=== PATIENT | female | born 1995 | race Caucasian/White ===

== ENCOUNTER 2017-07-24 15:23 | Outpatient (RCR) | payer MEDICAID, SELFPAY ==
--- NOTE | 2017-07-24 17:52 | HP.PTEVAL ---
Patient's Visit Information PARVIN CERNA is a 21 year old F referred to Physical Therapy by Beata Cruz with a diagnosis of GUSTATIONAL DM, PRE-ECLAMPSIA. SCIATICA.. Date of Evaluation: 07/24/17 Physical Therapist: Negrita Che - Visit Plan Frequency: 2-3x /Week Duration: 4-6 Weeks Plan: PROCEED SLOWLY 32 WEEKS WITH PRE-CLAMSIA AND GUSTATIONAL DIABETES. AQUATIC THERAPY FOR GENTLE UNLOADING OF SPINE AND GENTLE MVMT WITH NEUTRAL SPINE. GENTLE DLS TOLERATED. GENTLE DAKOTAH LE STRENGTHEING. FOCUS ON PAIN REDUCTION. VERY GENTLE REP EXTENSION THROUGH A SMALL ROM IS OK TOLERATED. MONITOR PERIPHERALIZATION OF SX'S. - Subjective Subjective: THIS PATIENT PRESENTS TO PT WITH C/O LBP THAT IS GOING DOWN HER LEG. SHE REPORTS SHE IS *32 WEEKS * AND HER LBP STARTED A FEW WEEKS AGO BUT GOT REALLY BAD ON SATURDAY. SHE REPORTS SHE JUST SAW DR. CRUZ SATURDAY AND THEN CALLED SATURDAY WITH C/O INCREASED BACK PAIN AND THAT IS WHEN PT WAS ORDERED. Work/Leisure: LAST WORKED JAN 2017 DOING [employer]. Disability: NO. Present symptoms: LOW BACK, LEFT THIGH. DENIES DAKOTAH LE NUMBNESS OR TINGLING. Present since: COUPLE WEEKS AGO. Pain Scale: WORST 9/10, LEAST 4/10. Currently: 9/10. Commenced as a result of: NO APPARENT REASON. WOKE UP WITH THE PAIN. GOT WORSE SATURDAY AFTER GIVING DOG A BATH SATURDAY AND SHE COULD BARELY STAND UP AFTER THAT - IT'S BEEN HORRIBLE SINCE THEN. Symptoms at onset: LOW BACK. Worse: WALKING, LYING DOWN, SITTING: PRETTY MUCH ANYTHING I DO. Better: NOTHING. Disturbed sleep: YES. Previous history/Previous treatment: CONSTANT LBP FOR YEARS BUT NOTHING THIS BAD. NO PRIOR TREATMENTS. Coughing/sneezing/straining: ? Gait: NO AD'S BUT VERY PAINFUL TO WALK. Difficulty initiating urinatin: NO. Accidents: NO. Unexplained weight loss: N/A. Imaging: NO. PMH: GALLSTONES. LOW IRON. OTHER: PRE-ECLAMPSIA - BEING MONITORED 2 TIMES A WEEK. STATES THAT IF SHE GETS EXTREME WARE, STARTS SEEING SPOTS, GETS DIZZY OR SEIZURES TO SEEK HELP IMMEDIATELY. GUSTATIONAL DIABETES - CHECKING BLOOD SUGAR 4 TIMES A DAY. STATES HER BLOOD SUGARS HAVE BEEN RUNNING NORMAL. - Objective Sitting Posture: POOR. Standing Posture: POOR. Lordosis: INCREASED. Lateral shift: NO. Relevant shift: N/A. Active Correction of posture: WORSE. Other Observations: PATIENT IS PLEASANT AND COOPERATIVE TO WORK WITH BUT APPEARS TO BE IN A LOT OF PAIN. ALL OF HER MOVENTS ARE VERY GUARDED AND SHE CAN NOT GET COMFORTABLE IN SITTING. SHE DOES WALK INDEP'LY INTO PT X APPROX 300 FEET WITHOUT ANY ASSISTIVE DEVICES BUT WITH DECREASED CADANCE, GRIMACING AND DECREASED TRUNK ROTATION. Motor deficit: DAKOTAH LE'S 5/5 WITH MMT EXCEPT RIGHT HIP 4-/5 AND LEFT HIP 4/5 (RIGHT HIP IS WEAKER AND PROVOKES MORE PAIN WITH TESTING THAN LEFT DESPITE C/O LEFT THIGH PAIN AND NOT RIGHT). Sensory deficit: DAKOTAH LE LIGHT TOUCH SENSATION INTACT. ROM deficit: DAKOTAH LE'S WFL. Reflexes: 2/2 DAKOTAH LE'S. Dural Signs: POSITIVE LLE. Lumbar mvmt loss: flex - MOD. ext - MOD. R SG - MIN. L SG - MIN. PATIENT WITH C/O PAIN WITH LUMBAR ROM TESTING ALL PLANES. Core strength: NT. Palpation: LUMBAR TENDERNESS AND INCREASED MUSCLE TONE OF PARASPINALS THROUGHOUT. - Goals Goal 1:: DECREASE C/O LB AND LEFT THIGH SX'S Goal Time Frame: 4-6 Weeks Goal 2:: IMPROVE SITTING, STANDING, WALKING, BENDING, LIFTING, LYING AND SLEEP FUNCTION Goal Time Frame: 4-6 Weeks Goal 3:: INSTRUCT IN PROPHYLAXIS Goal Time Frame: 4-6 Weeks - Rehabilitation Potential Rehabilitation Potential: Fair - Anticipated Interventions Patient/Client Instruction: Educate patient on: Condition, Plan of Care, Risk Factors, Benefits of Fitness Program For the Purpose of:: To improve self management Therapeutic Exercise to Include: Strength training, Body mechanics, Postural training, Flexibilty training, Gait and locomotor training, In an aquatic setting, Dynamic Lumbar Stabilization For the Purpose of:: To decrease pain, To decrease swelling/inflammation, To improve ability of physical actions for home/community/work/leisure, To improve gait and locomotor functions Thank you for the opportunity to evaluate your patient. For Medicare and Medicare HMO plans, please review the plan of care and approve it. It will need to be FAXED BACK to us at [phone] for Medicare purposes. Please let me know if there are questions or concerns regarding this plan of care. Physician Signature: Date:
--- NOTE | 2017-08-28 10:53 | HP.PT.NRP ---
HP - Discharge Summary (1) - Patient Information PARVIN CERNA was seen in my office for initial evaluation on 07/24/17. The following Plan of Care was established for this patient: Initial Frequency: 2-3x /Week Initial Duration: 4-6 Weeks - Anticipated Interventions Patient/Client Instruction: Educate patient on: Condition, Plan of Care, Risk Factors, Benefits of Fitness Program For the Purpose of:: To improve self management Therapeutic Exercise to Include: Strength training, Body mechanics, Postural training, Flexibilty training, Gait and locomotor training, In an aquatic setting, Dynamic Lumbar Stabilization For the Purpose of:: To decrease pain, To decrease swelling/inflammation, To improve ability of physical actions for home/community/work/leisure, To improve gait and locomotor functions This patient was last seen in our office 07/24/17. Pertinent comments regarding their Physical therapy will appear below: This patient has not returned to Physical Therapy and is appropriate to return to MD for further follow-up as needed. At this point I will be discontinuing this patient from physical therapy. I would be happy to see this patient again in the future if found appropriate by the physician. Thank you! Negrita Che
== END 2017-07-24 19:00 | disposition home or self-care (01) ==
LOC: PT 15:23
PROVIDERS: Family Provider Obstetrics & Gynecology; Visit Provider Obstetrics & Gynecology
DX: M54.30 Sciatica, unspecified side (principal); O24.419 Gestational diabetes mellitus in pregnancy, unspecified control; O14.90 Unspecified pre-eclampsia, unspecified trimester
CPT/HCPCS: 97162; 97530

== ENCOUNTER 2017-09-13 23:57 | Emergency (ER) | payer MEDICAID, SELFPAY ==
[2017-09-13 23:59] VITALS: BP 144/77; PULSE 94; RESP 18; TEMP 36.6; O2SAT 96; BMI 38.9
[2017-09-14 00:48] VITALS: BP 114/67; BP 118/83; BP 120/70; PULSE 102; PULSE 80; PULSE 92
[2017-09-14 00:48] LABS: Absolute Lymphocyte Count 2.09 X10^3/ul (0.83-4.51); Absolute Neutrophil Count 5.6 X10^3/uL (2.0-7.7); Basophil# 0.02 X10^3/uL; Basophil% 0.2 % (0-1); Differential Indicated SCAN CRITERIA MET; Eosinophil# 0.19 X10^3/uL; Eosinophils% 2.3 % (0-5); Hematocrit 31.4 % (37-47); Hemoglobin 9.1 g/dl (12.0-15.0); Lymphocyte # 2.09 X10^3/ul (4.0); Lymphocyte % 25.3 % (19-41); Mean Corpuscular Hgb 20.4 pg (27.0-32.0); Mean Corpuscular Volume 70.2 fL (81-99); Mean Platelet Vol. 9.7 fl (6.2-12.0); Monocyte# 0.37 X10^3/uL; Monocyte% 4.5 % (0-10); Neutrophil # 5.57 X10^3/uL (2.7-7.7); Neutrophil % 67.6 % (47-70); POSITIVE COUNT NO; POSITIVE DIFFERENTIAL NO; POSITIVE MORPHOLOGY YES; Platelet Count 325 K/mm3 (150-450); RBC Distribution Width CV 17.8 % (11.6-14.6); RBC Distribution Width SD 45.4 fl (35.1-43.9); Red Blood Count 4.47 M/mm3 (4.2-5.4); White Blood Count 8.3 K/mm3 (4.4-11.0)
[2017-09-14] MEDS: 0.9% Normal Saline 1,000 ML 1000 ML IV (00:51)
[2017-09-14 01:14] LABS: Differential Comment SCANNED
[2017-09-14 01:21] LABS: Pregnancy, Serum, hCG Quali. NEGATIVE Negative (0-9 Nonpreg)
--- NOTE | 2017-09-14 01:48 | ED.VISSUMM ---
- ER Visit Summary Date of Service: 09/14/17 Chief Complaint: [Vaginal bleeding] History of Present Illness: The patient is a 21 F presents the emergency department with vaginal bleeding that started about 6 weeks ago. Patient delivered a child via on August 06 and has not stopped bleeding since. Patient states that over the last 2-3 days she has had an increase in the amount of bleeding and she is passing some clots. Patient denies any abdominal pain. Patient denies any fever. Patient called her BLIND SLAT STAPLING MACHINE OPERATOR and the nurse instructed her to come to the ER to be evaluated. Patient denies feeling lightheaded or dizzy with standing. [Patient is .] Physical Examination: HEENT-PERRLA, EOMI. Cranial nerves II through XII grossly intact. TMs clear. Mucous membranes moist. No adenopathy. Cardiovascular-regular rate and rhythm without murmur or ectopy Lungs-clear to auscultation, chest wall stable without crepitus or subcu emphysema Abdomen-normoactive bowel sounds, soft, nontender, no rebound or rigidity, no peritoneal signs. exam-patient has blood and clot from the cervical loss noted. Minimal oozing noted. No cervical motion tenderness. Uterus is normal size and nontender. No masses palpated in the adnexa. Extremities-intact ?4, normal range of motion, normal pulses, atraumatic[] Test Results: [CBC with differential obtained showed a white blood cell count of 8.3, hemoglobin 9.1, hematocrit 31, platelets 325. HCG was negative. Orthostatics were negative. Patient's last hemoglobin on July 26 of this year was 8.0.] Emergency Department Course and Treatment: [I discussed case with Dr. Anglin who was covering for Dr. Cruz he recommended no further treatment at this time and wanted patient to follow-up with Dr. Cruz in the office.] Treatment Plan: [Follow-up with her BLIND SLAT STAPLING MACHINE OPERATOR within the next 2-3 days. Patient to return if persistent heavy bleeding, lightheaded, pale, or condition should worsen in any way.] Disposition: [Discharged to home in stable condition.] Impression: [Dysfunctional uterine bleeding] This note was generated with [employer] software. It may contain incorrect words, spelling, and punctuation that were not noted in review of the chart prior to signing ED Disposition - Plan for ED Patient: Chief Complaint: Vag Bleeding Referrals: Care Physician,No Primary [Primary Care Provider] -
--- NOTE | 2017-09-14 01:52 | ED.DCSUM_ITS ---
- ER Visit Summary Date of Service: 09/14/17 Chief Complaint: [Vaginal bleeding] History of Present Illness: The patient is a 21 F presents the emergency department with vaginal bleeding that started about 6 weeks ago. Patient delivered a child via on August 06 and has not stopped bleeding since. Patient states that over the last 2-3 days she has had an increase in the amount of bleeding and she is passing some clots. Patient denies any abdominal pain. Patient denies any fever. Patient called her EMERGENCY GENERATOR MECHANIC and the nurse instructed her to come to the ER to be evaluated. Patient denies feeling lightheaded or dizzy with standing. [Patient is .] Physical Examination: HEENT-PERRLA, EOMI. Cranial nerves II through XII grossly intact. TMs clear. Mucous membranes moist. No adenopathy. Cardiovascular-regular rate and rhythm without murmur or ectopy Lungs-clear to auscultation, chest wall stable without crepitus or subcu emphysema Abdomen-normoactive bowel sounds, soft, nontender, no rebound or rigidity, no peritoneal signs. exam-patient has blood and clot from the cervical loss noted. Minimal oozing noted. No cervical motion tenderness. Uterus is normal size and nontender. No masses palpated in the adnexa. Extremities-intact ?4, normal range of motion, normal pulses, atraumatic[] Test Results: [CBC with differential obtained showed a white blood cell count of 8.3, hemoglobin 9.1, hematocrit 31, platelets 325. HCG was negative. Orthostatics were negative. Patient's last hemoglobin on July 26 of this year was 8.0.] Emergency Department Course and Treatment: [I discussed case with Dr. Anglin who was covering for Dr. Cruz he recommended no further treatment at this time and wanted patient to follow-up with Dr. Cruz in the office.] Treatment Plan: [Follow-up with her EMERGENCY GENERATOR MECHANIC within the next 2-3 days. Patient to return if persistent heavy bleeding, lightheaded, pale, or condition should worsen in any way.] Disposition: [Discharged to home in stable condition.] Impression: [Dysfunctional uterine bleeding] This note was generated with [employer] software. It may contain incorrect words, spelling, and punctuation that were not noted in review of the chart prior to signing ED Disposition - Plan for ED Patient: Chief Complaint: Vag Bleeding Referrals: Care Physician,No Primary [Primary Care Provider] -
--- NOTE | 2017-09-14 01:52 | ED.DEP ---
ED Disposition - Plan for ED Patient: Chief Complaint: Vag Bleeding Instructions: ED Bleed Irregular Vaginal Referrals: Care Physician,No Primary [Primary Care Provider] - Beata Cruz MD [STAFF PHYSICIAN] - 3-5 Days
[2017-09-14 02:01] VITALS: BP 116/75; PULSE 89; RESP 17; O2SAT 98
--- NOTE | 2017-09-14 02:02 | ED.RN ---
PT GIVEN WRITTEN AND VERBAL DISCHARGE INSTRUCTIONS. PT VERBALIZES UNDERSTANDING AND DENIES ANY FURTHER QUESTIONS. PT AMBULATORY HOME WITH SIGNIFICANT OTHER. PT IV D/C AND COVERED WITH 2X2 GAUZE DRESSING.
== END 2017-09-14 02:04 | disposition home or self-care (01) ==
LOC: ED 09-14 00:51
PROVIDERS: Emergency Provider Emergency Medicine
DX: N93.8 Other specified abnormal uterine and vaginal bleeding (principal)
CPT/HCPCS: 84703; 85025; 86850; 86900; 96360; 99285; J7030; A4216

== ENCOUNTER 2017-09-24 11:47 | Day surgery (SDC) | payer MEDICAID, SELFPAY ==
[2017-09-24] VITALS (9 sets, daily range): BP systolic 106–137; BP diastolic 62–74; PULSE 64–91; RESP 16–20; TEMP 36.1–36.8; O2SAT 93–100; BMI 39.0
--- NOTE | 2017-09-24 11:57 | EKG12_ITS ---
Test Reason : PRE OP Blood Pressure : / mmHG Vent. Rate : 082 BPM Atrial Rate : 082 BPM P-R Int : 136 ms QRS Dur : 086 ms QT Int : 402 ms P-R-T Axes : 019 029 026 degrees QTc Int : 469 ms Normal sinus rhythm with sinus arrhythmia Normal ECG When compared with ECG of 04-OCT-2013 07:39, QT has lengthened Confirmed by LENCHO LEHMAN, NITO ([id number]), news assignment editor YOVANI MCBRIDE ([id number]) on 09/26/2017 4:03:11 PM Referred By: Jose Campbell Confirmed By:NITO MUSA MD
[2017-09-24 12:13] LABS: Internal QC Validated? YES +Cl - CLEAR BKGD; Pregnancy, Urine Negative Negative
--- NOTE | 2017-09-24 14:03 | PCM.OPRPT ---
Problem List (1) Cholelithiasis Status: Acute Qualifiers: Cholelithiasis location: gallbladder Cholecystitis presence: without cholecystitis Biliary obstruction: without biliary obstruction Qualified Code(s): K80.20 - Calculus of gallbladder without cholecystitis without obstruction (2) Right upper quadrant pain Status: Acute Report of Operation Date of Procedure: 09/24/17 Pre-Operative Diagnosis: k80.20 calculus of the gallbladder without cholecystitis without obstruction. r10.11 right upper quadrant abdominal pain Post-Operative Diagnosis: Same Surgery/Procedure Performed:: 79011 laparoscopic cholecystectomy Type of Anesthesia:: General Anesthesiologist: Thad Colon Description of Procedure: Patient was brought into the operating room. Placed in the supine position. Under excellent endotracheal intubation the abdomen was sterilely prepped and draped in the usual fashion. Local was injected infraumbilically. Incision was made and dissection was carried down to the fascia. The fascia was grasped with a Tahir. Varies needle was placed inside the abdomen. The abdomen was insufflated to 15 torr. A 10/12 trocar was placed without difficulty. Patient was placed in the head up and rotated to the left position. A subxiphoid #5 trocar was placed, inferior to this another #5 trocar was placed, and finally laterally a #5 trocar was placed. All these under direct visualization without injury to underlying structures. I grab the fundus of the gallbladder and retracted in cephalad direction. I dissected out the cystic duct the cystic artery and dissected all the way back to the base of the liver. Once I had dissected everything free and's identified both the common bile duct and the other structures I placed 2 hemoclips cystic duct and ligated in between. I placed 2 hemoclips proximally and distally on the artery and ligated in between. I deliver the gallbladder from the gallbladder bed with use of electrocautery. Placed a specimen specimen bag and delivered through the umbilical port without difficulty. In my dissection I did have a small spillage of bile but no spillage of stones. I reinflated the abdomen irrigated out all of the bile. I inspected the liver there was a small tear on the right side of the liver but it was not actively bleeding. I did not use electrocautery on it. The liver bed itself had excellent hemostasis. I removed all the trochars under direct visualization. Good hemostasis was noted. I closed the fascia the umbilical port with a figure 8 stitch of 0 Vicryl. Skin incisions were closed with subcuticular stitches of 4-0 Monocryl. Steri-Strips are applied sterile dressings were applied and the patient tolerated the procedure well. - Admit VTE Documentation VTE Present on Admission: No VTE Mechan Device Prophylaxis: SCD's VTE Pharm Prophylaxis ordered?: No Reason prophylaxis not ordered:: Treatment Not Indicated
--- NOTE | 2017-09-24 14:05 | GALL_PTH ---
PATIENT: PARVIN TORRES [place] [facility] [id number] AGE/SX: 21/F ROOM: RE09/24/[address]: Dr. Jose Campbell MD : [id number] BED: DIS: 09/24/2017 SPEC #: [id number] RECD: 09/24/17 15:24 STATUS: SHARDA TY #: [id number] FUNMILAYO: 09/24/17 14:[address]: Jose Campbell DEPT: SURGICAL PATHOLOGY RECD BY: Alisson Shannon ENTERED: 09/25/17 09:06 SP TYPE: AVI HILL DR: No Primary Care Phys Tissues: Gallbladder, NOS Procedures: Surgery Specimen Level III HEADER OPERATION: Laparoscopic cholecystectomy PRE-OP DIAGNOSIS: Calculus of gallbladder without cholecystitis without obstruction: right upper quadrant pain TISSUE SUBMITTED: Gallbladder MICROSCOPIC DIAGNOSIS Gallbladder, cholecystectomy: Cholesterolosis, chronic cholecystitis and cholelithiasis. AM:navjot 09/26/17 MICROSCOPIC DESCRIPTION Slides are reviewed. GROSS DESCRIPTION Received is one container labeled with the patient's name and designated gallbladder. The specimen consists of a gallbladder measuring 6.5 x 2 x 2 cm. The external surface is smooth and glistening. Focally, it is granular, hemorrhagic and contains cautery artifact. The lumen of the gallbladder contains greenish mucoid bile and three crystalline yellow-green calculi averaging 4 cm each. The gallbladder mucosa is bile-stained and without any mass lesions. The gallbladder wall averages 0.2 cm in thickness and is free of mass lesions. Wafer Production Worker sections of the gallbladder and the cystic duct are submitted in one cassette. / AM:navjot 09/25/17 TC:3 CPT: 91422
--- NOTE | 2017-09-24 14:05 | PCM.DC.GB ---
Discharge Diet: Light diet - advance as tolerated Discharge Activity: May Not Drive - for 2-3 days or while taking narcotic pain medications., - - Do not drive, work heavy equipment or sign legal documents for 24 hours. May shower in (days): 1 - with the bandage in place. Additional Activity Instructions:: Pain medication may cause nausea. You should typically eat light foods as you take your pain medications. Pain medication may also cause constipation. If this is a problem for you, please discuss with your doctor. Call your doctor if your incision/area has: Continuous Slow Oozing, Sudden Increased Bleeding, Increased Pain/ Swelling, Increased Redness, Foul Smelling Discharge Call your doctor if you observe: Fever of 101 or Higher Suture Line Care: Avoid Pulling/Pushing, Avoid Pinching/Bending Additional Dressing/Incision Instructions:: Leave operative bandaids on for 2 days. When you remove dressing, leave Steri-Strips on until your follow-up appointment, or until the Steri-Strips fall off on their own. Allergies/Adverse Reactions: Allergies No Known Allergies Allergy (Verified 09/19/17 09:14) Medications to take at Discharge Albuterol Inhaler [Ventolin Hfa (SP)] 1 - 2 puff INHALATION Q4H PRN PRN 09/19/17 Primary Care Physician: Care Physician,No Primary [Primary Care Provider] - Please Follow Up With: Jose Campbell MD - Please call [phone] to schedule an appointment. When: 7 days after your surgery.
[2017-09-24] MEDS: Cefazolin 2 GM in 0.9% Normal Saline 100 ML IV (14:12)
[2017-09-24] MEDS: Bupivacaine 0.25% 30 ML Vial (14:41)
== END 2017-09-24 17:35 | disposition home or self-care (01) ==
LOC: SDC 11:50 → AC 11:51
PROVIDERS: Anesthesiology; Visit Provider Surgery
PROC: (CPT 47610; principal; 2017-09-24 13:45)
DX: K80.10 Calculus of gallbladder with chronic cholecystitis without obstruction (principal); J45.909 Unspecified asthma, uncomplicated
CPT/HCPCS: 47562; 81025; 88304; 93005; J7120; J2405

== ENCOUNTER 2018-06-14 13:00 | Emergency (ER) | payer MEDICAID, SELFPAY ==
[2018-06-14 13:01] VITALS: BP 165/80; PULSE 134; RESP 16; TEMP 37.5; O2SAT 98; BMI 39.8
--- NOTE | 2018-06-14 13:26 | ED.DCSUM_ITS ---
- ER Visit Summary Date of Service: 06/14/18 Chief Complaint: Nausea, vomiting, and diarrhea History of Present Illness: The patient is a 22 F with nausea, vomiting, and diarrhea that started at 2 AM today. Associated with low-grade fevers and diffuse abdominal cramps. Patient is otherwise healthy. No recent medical problems, hospitalizations, surgeries, or new medications. Physical Examination: Tachycardia but otherwise vitals unremarkable. Temperature 99.5. Alert and oriented. Mucous membranes normal. Skin appears normal. Heart regular but tachycardic. Lungs clear. Abdomen soft and nontender. Test Results: None ordered Emergency Department Course and Treatment: Patient treated with fluids, Zofran, and Imodium. I suspect this is a viral illness. I have seen many patients with similar symptoms today. She does not have any red flag features are concerning history. Patient is feeling better after meds and fluids. Will discharge. Prescription for Zofran and Imodium. Stay hydrated. Follow-up with primary care. Treatment Plan: Above Disposition: Discharge Impression: 1. Nausea vomiting and diarrhea This note was generated with [employer] dictation software. It may contain incorrect words, spelling, and punctuation that were not noted in review of the chart prior to signing ED Disposition - Plan for ED Patient: Chief Complaint: Nausea/Vomiting Referrals: Vernell Cordero MD [Primary Care Provider] -
[2018-06-14] MEDS: Ondansetron 4 MG/2 ML Vial IV (13:44)
[2018-06-14] MEDS: 0.9% Normal Saline 1,000 ML 999 ML IV ×2 (13:44)
[2018-06-14] MEDS: Loperamide 2 MG Capsule 4 MG PO (13:46)
[2018-06-14 13:47] VITALS: RESP 22
[2018-06-14] MEDS: Acetaminophen 500 MG Tablet 1000 MG PO (13:55)
--- NOTE | 2018-06-14 15:08 | ED.DEP ---
ED Disposition - Plan for ED Patient: Chief Complaint: Nausea/Vomiting Instructions: ED Diet Vomiting Diarrhea Prescriptions: Loperamide [Imodium] 2 mg PO Q4H PRN PRN #20 cap PRN Reason: Diarrhea Ondansetron [Zofran Odt] 4 mg PO Q8H PRN PRN #10 tab PRN Reason: Nausea Referrals: Vernell Cordero MD [Primary Care Provider] -
[2018-06-14 15:16] VITALS: BP 111/69; RESP 18
--- OUTSIDE RECORDS SUMMARY | 2018-09-17 11:38 | XMS RPT_ITS ---
:1995 Author Organization OHIP Support Name Relationship Address Phone ESTEE AMATOHANIE Unavailable Unavailable + [place] [address] STONE, JAVAD Unavailable [address] + [place] [address] UE Unavailable Unavailable Unavailable AMATO, CHRISTIAN Unavailable Unavailable + [place] [address] STONE, JAAVD Unavailable [address] + [place] [address] UE Unavailable Unavailable Unavailable AMATO, CHRISTIAN Unavailable Unavailable + [place] [address] STONE, JAVAD Unavailable [address] + [place] [address] UE Unavailable Unavailable Unavailable AMATO, CHRISTIAN Unavailable Unavailable + [place] [address] STONE, JAVAD Unavailable [address] + [place] [address] UE Unavailable Unavailable Unavailable AMATO, CHRISTIAN Unavailable Unavailable + [place] [address] STONE, JAVAD Unavailable [address] + [place] [address] UE Unavailable Unavailable Unavailable AMATO, CHRISTIAN Unavailable . + [place] [address] STONE, JAVAD Unavailable [address] + [place] [address] UE Unavailable Unavailable Unavailable AMATOCHRISTIAN Unavailable . + [place] [address] STONE, JAVAD Unavailable [address] + [place] [address] UE Unavailable Unavailable Unavailable Stone Javad Unavailable Unavailable + CHRISTIAN AMATO Unavailable Unavailable + [place] [address] STONE, JAVAD Unavailable [address] + [place] [address] UE Unavailable Unavailable Unavailable CHRISTIAN AMATO Unavailable Unavailable + [place] [address] STONE, JAVAD Unavailable [address] + [place] [address] UE Unavailable Unavailable Unavailable Care Team Providers Name Role Phone MICHAEL ROD Attending Unavailable MICHAEL ROD Referring Unavailable DALILA DUMONT ([facility]) Attending Unavailable JORGE ENCARNACION ([facility]) Attending Unavailable JORGE ENCARNACION ([facility]) Attending Unavailable NUNO TIMMONS Attending Unavailable DALILA DUMONT ([facility]) Referring Unavailable TAIWO MAC (CN) Attending Unavailable TAIWO MAC (CN) Referring Unavailable TAIWO MAC (CN) Attending Unavailable MORGAN VILLAFUERTE (CN) Referring Unavailable MORGAN VILLAFUERTE (CN) Referring Unavailable ESTEFANIATAIWO SPIVEY (CN) Attending Unavailable TAIWO MAC (CN) Referring Unavailable PROVIDER, UNKNOWN Referring Unavailable No, PCP Primary Care Unavailable Steve Martinez Attending Unavailable Jose Canas Attending Unavailable Gil, Nuno Primary Care Unavailable Beata Villarreal Attending Unavailable Benekos, Beata Primary Care Unavailable Beata Villarreal Attending Unavailable Davids, Beata Primary Care Unavailable Maritza Jamison PA-C Attending Unavailable Nat Bobby Attending Unavailable Primay Care Physicia, No Primary Care Unavailable Jose Campbell Attending Unavailable Richard Campbellel Referring Unavailable Primay Care Physicia, No Primary Care Unavailable Jose Campbell Attending Unavailable Rick Armas NP-C Attending Unavailable Primay Care Physicia, No Primary Care Unavailable Davidson Yi Attending Unavailable Jose Campbell Referring Unavailable PROBLEMS PROBLEMS DATE TYPE CONDITION / CODE ATTENDING STATUS SOURCE 07/14/2018 Active 8 weeks gestation of NA Active [facility] / [facility] Z3A.08(ICD-10) [place] Repository 07/14/2018 Active Spotting NA Active [facility] complicating [facility] , [place] unspecified Repository trimester / O26.859(ICD-10) 07/08/2018 Active Family history of NA Active [facility] carrier of genetic [facility] disease / [place] Z84.81(ICD-10) Repository 07/04/2018 Active Supervision of NA Active [facility] with other [facility] poor reproductive or [place] obstetric history, Repository unspecified trimester / O09.299(ICD-10) 07/04/2018 Active Personal history of NA Active [facility] gestational diabetes [facility] / Z86.32(ICD-10) [place] Repository 07/08/2018 Active Encounter for NA Active [facility] test, [facility] result positive / [place] Z32.01(ICD-10) Repository 02/05/2018 Active Unknown / DALILA DUMONT Active [facility] UNK(Unknown) ([facility]) Clinic Main [place] Repository 12/09/2017 Active Anxiety disorder, NA [facility] unspecified / [facility] F41.9(ICD-10) [place] Repository 12/09/2017 Active Major depressive Active [facility] disorder, single [facility] episode, unspecified [place] / F32.9(ICD-10) Repository 10/18/2017 Unknown K80.20 - Calculus of Shannan, Active [place] gallbladder without [facility] cholecystitis Hospital without obstruction Repository / K80.20(ICD-10) 10/18/2017 Unknown R10.11 - Right upper [place], Active [place] quadrant pain / [facility] R10.11(ICD-10) Hospital Repository 11/07/2017 Unknown Z01.810 - Encounter KdDavidson tejada Active Eb for preprocedural [facility] cardiovascular Hospital examination / Repository Z01.810(ICD-10) 08/02/2017 Admitting Encntr for suprvsn [place], Active [facility] Diagnosis of normal first [facility] preg, third Repository trimester / Z34.03(ICD-10) 08/02/2017 Admitting Mild to moderate [place], Active [facility] Diagnosis pre-eclampsia, [facility] complicating Repository childbirth / O14.04(ICD-10) 08/02/2017 Admitting 33 weeks gestation [place], Active [facility] Diagnosis of / [facility] Z3A.33(ICD-10) Repository 08/02/2017 Admitting Single live / [place], Active [facility] Diagnosis Z37.0(ICD-10) [facility] Repository 08/02/2017 Admitting Severe pre-eclampsia [place], Active [facility] Diagnosis complicating [facility] childbirth / Repository O14.14(ICD-10) 08/02/2017 Admitting Polyhydramnios, Antonioe, Active [facility] Diagnosis third trimester, not [facility] applicable or unsp / Repository O40.3XX0(ICD-10) 08/02/2017 Admitting Maternal care for Antonioe, Active [facility] Diagnosis excess growth, [facility] third trimester, Repository unsp / O36.63X0(ICD-10) 08/02/2017 Admitting Gestatnl diab in Antonioe, Active [facility] Diagnosis chldbrth, ctrl by [facility] oral hypoglycemic Repository drugs / O24.425(ICD-10) 08/02/2017 Admitting Obesity complicating Antonioe, Active [facility] Diagnosis childbirth / [facility] O99.214(ICD-10) Repository 08/02/2017 Admitting Body mass index [place], Active [facility] Diagnosis (BMI) 40.0-44.9, [facility] adult / Repository Z68.41(ICD-10) 08/02/2017 Admitting Abnlt in heart [place], Active [facility] Diagnosis rate and rhythm comp [facility] labor and delivery / Repository O76(ICD-10) 08/02/2017 Admitting Shortness of breath Antonioe, Active [facility] Diagnosis / R06.02(ICD-10) [facility] Repository 08/02/2017 Admitting Maternal care for Antonioe, Active [facility] Diagnosis oth abnlt of pelvic [facility] organs, third tri / Repository O34.83(ICD-10) 08/02/2017 Admitting Other ovarian cyst, [place], Active [facility] Diagnosis right side / [facility] N83.291(ICD-10) Repository 08/02/2017 Admitting Diseases of the [place], Active [facility] Diagnosis digestive system [facility] complicating Repository childbirth / O99.62(ICD-10) 08/02/2017 Admitting Calculus of [place], Active [facility] Diagnosis gallbladder w/o [facility] cholecystitis w/o Repository obstruction / K80.20(ICD-10) 08/02/2017 Admitting Anemia complicating [place], [facility] / [facility] O99.02(ICD-10) Repository 08/02/2017 Admitting Anemia in other [place], [facility] Diagnosis chronic diseases [facility] classified elsewhere Repository / D63.8(ICD-10) 08/02/2017 Admitting Diseases of the [place], [facility] Diagnosis respiratory system [facility] complicating Repository childbirth / O99.52(ICD-10) 08/02/2017 Admitting Mild intermittent [place], Active [facility] Diagnosis asthma, [facility] uncomplicated / Repository J45.20(ICD-10) 08/02/2017 Admitting Other specified [place], Active [facility] Diagnosis complications of [facility] labor and delivery / Repository O75.89(ICD-10) 08/02/2017 Admitting Obesity, unspecified [place], Active [facility] Diagnosis / E66.9(ICD-10) [facility] Repository 08/02/2017 Admitting Migraine, unsp, not [place], Active [facility] Diagnosis intractable, without [facility] status migrainosus / Repository G43.909(ICD-10) 08/02/2017 Admitting [facility] Diagnosis noncompliance with [facility] medication regimen / Repository Z91.14(ICD-10) 08/17/2017 Unknown O13.9 - Gestational Beata Villarreal Active [facility] [-induced] Community hypertension without Hospital significant Repository proteinuria, unspecified trimester / O13.9(ICD-10) 08/28/2017 Unknown M54.30 - Sciatica, Davids Beata Active [place] unspecified side / Community M54.30(ICD-10) Hospital Repository PROCEDURES PROCEDURES No Procedure Records FoundRESULTS RESULTS PROGRESS Observed: 07/22/2018 Status: COMPLETED Source: [place] 12:55 PM [facility] REPOSITORY HNO ID: [id number] Author: Taiwo Mac Service: (none) Author Type: Deicer Inspector Pneumatic Type: Progress Notes Filed: 07/22/2018 12:56 PM Note Text: S: Parvin De Oliveira presents for a routine OB visit at 7w3d. She denies LOF, VB, DFM or cramping/contractions. Follow-up visit to confirm viability of - patient reports she is no longer having spotting. Review of LTCS report from [facility] and previous O: See flow sheet Gen: A+O x 3, NAD Abdomen: NT x 4 quadrants Extremities: No edema in LE Limited TVS: + IUP, +CA, CRL c/w 7+3 weeks A/P: 7w3d IUP. Hx of uncontrolled GDM and severe pre-eclampsia in previous , Previous Section. RTO 4 Weeks for follow up. Call with LOF, VB, DFM or cramping/contractions. 1. Supervision of high risk in first trimester -Review of records, recommend patient have next visit with MD provider to complete counseling and to review previous records. - [facility] [employer] [facility] 2. First trimester screening -Patient declines carrier screening, accepts 1st trimester NT scan and Sequential Screen - [facility] [employer] [facility] Taiwo Mac APRN.CNM HCG, QUANTITATIVE BL Collected: 07/16/2018 Status: F Source: [place] 10:55 AM [facility] REPOSITORY TYPE CODE TESTS RESULT OUT OF REFERENCE UNITS RANGE LAB HCGQT <5.0 mU/mL HCG, [place] [address]3053.0 Result Comment: QUANTITATIVE HCG NORMAL RANGES Weeks of Gestation (Weeks Since LMP) 3 Weeks (5.8-71.2 mIU/mL) 4 Weeks (9.5-750 mIU/mL) 5 Weeks (217-7138 mIU/mL) 6 Weeks (158-16801 mIU/mL) 7 Weeks (3697-969959 mIU/mL) 8 Weeks (72709-543534 mIU/mL) 9 Weeks (42940-932337 mIU/mL) 10 Weeks (70676-910334 mIU/mL) 12 Weeks (02986-742197 mIU/mL) Referenced to 4th IS of [facility] Performed By: #### HCGQT #### [facility] [address] [place], [place] [address] HCG, QUANTITATIVE BL Collected: 07/14/2018 Status: F Source: [place] 2:14 PM [facility] REPOSITORY TYPE CODE TESTS RESULT OUT OF REFERENCE UNITS RANGE LAB HCGQT <5.0 mU/mL [place] [address].0 Result Comment: QUANTITATIVE HCG NORMAL RANGES Weeks of Gestation (Weeks Since LMP) 3 Weeks (5.8-71.2 mIU/mL) 4 Weeks (9.5-750 mIU/mL) 5 Weeks (217-7138 mIU/mL) 6 Weeks (158-62723 mIU/mL) 7 Weeks (3697-829259 mIU/mL) 8 Weeks (80655-012447 mIU/mL) 9 Weeks (54745-859683 mIU/mL) 10 Weeks (81439-199966 mIU/mL) 12 Weeks (48086-412746 mIU/mL) Referenced to 4th IS of [facility] Performed By: #### HCGQT #### [facility] [address] [place], [place] [address] JULIANA Observed: 07/09/2018 Status: COMPLETED Source: [place] 12:00 AM [facility] REPOSITORY Telephone (WOOB) PARVIN DE OLIVEIRA ([id number]) 1995 F Date Time Provider Department 07/09/18 TAIWO MAC) WOOB During your visit today, we recorded the following information about you: Taiwo Mac APRN.CNM 07/09/2018 10:14 AM Signed Patient has strong family history of BRCA1/BRCA2 gene mutation. Patient reports that maternal grandmother and mother are both carriers but do not have breast cancer. Patient has maternal aunts that were diagnosed with breast cancer in their mid to late-30's. Patient reported at NOB visit desire to be screened and to receive more information re: her possible risk for breast cancer in the future. Referral for breast center filed. Please inform patient that I have sent a referral for her. ELIJAH Mueller RN 07/09/2018 10:55 AM Signed Attempted to leave message for patient to return phone call but voicemailbox is full and unable to leave message. Please attempt to call patient back Casper Cabral PSR 07/09/2018 11:06 AM Signed Patient called back and was given instructions to call and schedule with breast center. Patient acknowledged and said she would call at her convenience. Casper Cabral PSR Allergies As of Date: 07/09/2018 Noted Allergy Reaction AMOXICILLIN 2 - Rash Date Reviewed: 07/08/2018 Reviewed by: Maritza Jamison - Fully Assessed Reason for Visit: breast center referral [Other] Primary Visit Diagnosis:Family history of BRCA gene mutation [Z84.81] Order(s):CONSULT TO BREAST CENTER [] Order #: [id number]: 1 Prescriptions as of 07/09/2018 Sig: VIT NO.78-IRON 18 MG* Take 1 capsule by mouth once * ALBUTEROL SULFATE HFA 90 MCG/* Inhale as instructed. Problem List As Of Date 07/09/2018 Noted Resolved RUQ pain [R10.11] INVALID FOR* Anxiety and depression [F41.9, F32.9] INVALID FOR* Mood disorder (HCC) [F39] INVALID FOR* More... Short interval between pregnancies affecting pr*INVALID FOR* More... Previous delivery affecting ,*INVALID FOR* More... Hx of preeclampsia, prior , currently *INVALID FOR* More... History of gestational diabetes in prior pregna*INVALID FOR* More... Nausea and vomiting in [O21.9] INVALID FOR* More... History of depression [Z86.59] INVALID FOR* More... Family history of Down syndrome [Z82.79] INVALID FOR* More... Patient requested diagnostic testing [Z01.89] INVALID FOR* More... FHx: BRCA gene positive [Z84.81] INVALID FOR* Anemia affecting in first trimester [*INVALID FOR* More... Encounter Status:Closed by TAIWO MAC CNM on 07/09/18 TYPE AND SCR,PRENATL Collected: 07/08/2018 Status: F Source: [place] 3:19 PM [facility] REPOSITORY TYPE CODE TESTS RESULT OUT OF REFERENCE UNITS RANGE LAB %ABR B ABO/RH(D) POSITIVE LAB % Antibody NEG Screen Performed By: #### TSPN #### [facility] [address] [place], [place] [address] TOXICOLOGY SCREEN,UR Collected: 07/08/2018 Status: F Source: [place] 3:00 PM [facility] REPOSITORY TYPE CODE TESTS RESULT OUT OF REFERENCE UNITS RANGE LAB UPCP2 Negative Negative Phencyclidin e, Urine Result Comment: Cutoff threshold at 25 ng/mL. LAB UBENZ2 Negative Benzodiazepines, Ur Negative Result Comment: Cutoff threshold at 200 ng/mL. LAB UCOC2 Negative Cocaine, Negative Urine Result Comment: Cutoff threshold at 300 ng/mL. LAB UAMPH2 Negative Amphetamines, Urine Negative Result Comment: Cutoff threshold at 1000 ng/mL. LAB UTHC2 Negative Cannabinoids, Urine Negative Result Comment: Cutoff threshold at 50 ng/mL. LAB UOPI2 Negative Opiates, Negative Urine Result Comment: Cutoff threshold at 300 ng/mL. LAB UBARB2 Negative Barbiturates, Urine Negative Result Comment: Cutoff threshold at 200 ng/mL. LAB UETOH <11 mg/dL <11 Ethanol, Urine LAB UOXYC Negative Oxycodone, Negative Urine Result Comment: Cutoff threshold at 100 ng/mL. Comment: Immunoassay screen only. Cross reactivity with other substances can occur with immunoassay screening. Detection of any drug(s) in this urine toxicology panel is presumptive only. These tests are for med ical purposes only and should not be used for compliance monitoring, legal, or forensic use. Samples should be within normal physiological conditions (e.g. pH). This assay does not include adulteration/specimen validity testing. In clinical settings, confirmatory testing is at the practitioner's discretion [1]. If clinically indicated, confirmation by high specificity, quantitative methodology, which includes adulteration/spec imen validity testing, may be requested on the same specimen through Client Services ([phone]) if contacted within 48 hours of initial testing. [1]Substance Abuse and Mental Health Services Administration (2012). Clinical Drug Testing in Primary Care Technical Assistance Publication Series 32. Department of Health and Human Services, [place], p.10. These tests were developed and their performance characteristics determined by [facility] ([facility]). They have not been cleared or a pproved by the FDA. [facility] is regulated under CLIA as qualified to perform high complexity testing. These tests are used for clinical purposes. They should not be regarded as investigational or for research. Performed By: #### UTOX2 #### [place] [address] [place] [address] GC/CHLAMYDIA AMPLIF Collected: 07/08/2018 Status: C Source: [place] 3:00 PM [facility] REPOSITORY TYPE CODE TESTS RESULT OUT OF REFERENCE UNITS RANGE LAB GCCTSR GC/Chlam Cervix Amp Source Result Comment: Corrected on 07/10 AT 0431: Previously reported as Vaginal LAB GCAMPL GC Amplification Negative for Neisseria gonorrhoeae by amplification. LAB CLAMPL Chlamydia Amplif Negative for Chlamydia trachomatis by amplification. Performed By: #### GCCT #### [place] [address] Observed: 07/08/2018 Status: F Source: [place] URINE CULTURE 3:00 PM [facility] REPOSITORY Sp. Request/Comment: - Specimen received in preservative Culture Result - 10,000 - <50,000 CFU/ml Normal urogenital negra Performed By: #### URCUL #### [place] [address] CBC Collected: 07/08/2018 Status: F Source: [place] 2:20 PM [facility] REPOSITORY TYPE CODE TESTS RESULT OUT OF REFERENCE UNITS RANGE LAB WBC 3.70-11.00 k/uL WBC 7.83 LAB RBC 3.90-5.20 m/uL RBC 4.71 LAB HGB 11.5-15.5 g/dL Low Hemoglobin 9.3 LAB HCT 36.0-46.0 % Low Hematocrit 30.9 LAB MCV 80.0-100.0 fL Low MCV 65.6 LAB MCH 26.0-34.0 pG Low MCH 19.7 LAB MCHC 30.5-36.0 g/dL Low MCHC 30.1 LAB RDWCV 11.5-15.0 % RDW-CV High 20.7 LAB PLTCT 150-400 k/uL Platelet High Count 421 LAB MPV 9.0-12.7 fL MPV 10.6 LAB ABSNUC <0.01 k/uL Absolute nRBC <0.01 Performed By: #### CBC, RUBIGG, HBSAG, HIV12C, SYPHGX #### [place] [phone] RUBELLA IGG ANTIBODY Collected: 07/08/2018 Status: F Source: [place] 2:20 PM [facility] REPOSITORY TYPE CODE TESTS RESULT OUT OF RANGE REFERENCE UNITS LAB RUBGQL Negative Abnormal Rubella IgG Positive Alert Ab, Qual Result Comment: Sample is considered positive for IgG antibodies to rubella virus. A positive result indicates previous exposure to Rubella virus or vaccination. LAB RUBQNT Index Value Rubella IgG Ab 1.54 Result Comment: Index values are interpreted as follows: Negative specimens <0.90 Equivocol specimens 0.90 to 0.99 Positive specimens >0.99 The magnitude of the measured result is not indicative of the amount of antibody present. Performed By: #### CBC, RUBIGG, HBSAG, HIV12C, SYPHGX #### [place] [phone] HEPATITIS B SURF. AG Collected: 07/08/2018 Status: F Source: [place] 2:20 PM [facility] REPOSITORY TYPE CODE TESTS RESULT OUT OF REFERENCE UNITS RANGE LAB HBSAG Negative Hepatitis B Negative Surf. Ag Performed By: #### CBC, RUBIGG, HBSAG, HIV12C, SYPHGX #### [place] [phone] HIV 12 COMBO (AG/AB) Collected: 07/08/2018 Status: F Source: [place] 2:20 PM [facility] REPOSITORY TYPE CODE TESTS RESULT OUT OF REFERENCE UNITS RANGE LAB HVAGAB Non Reactive HIV Non Reactive 12 Ag/Ab Result Comment: (NOTE) HIV Information: [place] Rev. Code 3701.243(E): This information has been disclosed to you from confidential records protected from disclosure by state law. You shall make no further disclosure of this information without the specific, written, and informed release of the individual to whom it pertains, or as otherwise permitted by state law. A general authorization for the release of medical or other information is not sufficient for the purpose of the release of HIV test results or diagnoses. Performed By: #### CBC, RUBIGG, HBSAG, HIV12C, SYPHGX #### [facility] [address] [address] SYPHILIS IGG WITH Collected: 07/08/2018 Status: F Source: [place] CONF 2:20 PM [facility] REPOSITORY TYPE CODE TESTS RESULT OUT OF REFERENCE UNITS RANGE LAB SYPHQL Nonreactive Syphilis IgG, Nonreactive Qual Result Comment: No serological evidence of infection with T. pallidum. LAB SYPHLG AI Syphilis IgG <0.2 Result Comment: Antibody index is interpreted as follows: Non reactive SPECIMENS <=0.8 Weak reactive SPECIMENS 0.9 to 5.9 Reactive SPECIMENS >=6.0 Performed By: #### CBC, RUBIGG, HBSAG, HIV12C, SYPHGX #### [facility] [address] [place] [address] 50G, 1HR GEST. Collected: 07/08/2018 Status: F Source: [place] GSCRN 2:20 PM [facility] REPOSITORY TYPE CODE TESTS RESULT OUT OF REFERENCE UNITS RANGE LAB GLUP 74-134 mg/dL Glucose 118 Screen, Preg Result Comment: [place] [employer] of [employer]stetric[employer] and Gynec[employer] (Dorado/Coustan) guidelines state a gestational diabetes mellitus positive screen is made, in women not previously diagnosed with overt diabetes, when the 1 hr plasma glucose level is equal to or above 140 mg/dL. [facility] Account Management Specialist and [facility] recommends a 135 mg/dL cutoff. Performed By: #### GLTGST #### [facility] [address] [address] PROGRESS Observed: 07/08/2018 Status: COMPLETED Source: [place] 1:57 PM [facility] REPOSITORY HNO ID: [id number] Author: Taiwo Mac Service: (none) Author Type: Deicer Inspector Pneumatic Type: Progress Notes Filed: 07/08/2018 6:46 PM Note Text: INITIAL OB ASSESSMENT OB Provider: Taiwo Mac CNM HPI: Parvin De Oliveira is a 22 year old female here to establish Obstetrical Care. Patient's last menstrual period was 05/14/2018 (exact date). from OB Dating Form. Patient actually reports approximate LMP dating, beginning of May. Have been regular periods after having her son. Cycle length: 5-6 days. Reports negative uhcg before Antonino, but then shortly after New Years +uhcg noted. Complaints: nausea without vomiting. Hx of headaches after last delivery, not recently. Has taken Tylenol and they usually resolve. was planned. Obstetric History T0 L1 SAB0 TAB0 Ectopic0 Multiple0 Live Births1 Prior : yes x 1 History of 4th degree laceration: No Patient's Risk Screening for delivery: History of abnormal pap: No Prior treatment for cervical dysplasia: none. History of STDs: chlamydia - 3-4 years ago Tobacco use: No Caffeine use: Yes - drinks tea, maybe half a coke at most Drug use: No Alcohol use: No Multivitamin with Folic acid: Yes - vitamin (Rx sent) Occupation: [employer] or heritage: No Would refuse blood transfusion if medically necessary: No BMI 39.87 kg/(m2) Patient BMI over 30? Yes, Consult to [facility]- [facility] ordered Marital Status: Partner: Name: Javad Age: 21 Occupation: [employer] Gender: male History of STDs: chlamydia PAST MEDICAL HISTORY Diagnosis Date - Anemia - Anxiety and depression 12/09/2017 - Asthma - fracture age 2 right arm - Gestational diabetes - Major depressive disorder, recurrent, moderate (HCC) 03/27/2018 - depression - Preeclampsia - Social anxiety disorder 03/27/2018 PAST SURGICAL HISTORY Procedure Laterality Date - SECTION HX - CHOLECYSTECTOMY - PAST SURGICAL HISTORY OF cyst in jaw removed - REMOVAL OF TONSILS,<11 Y/O Tonsillectomy age 4 Current Outpatient Prescriptions on File Prior to Visit: [id number]-ifhyah 1-dha (PRENATE DHA, FERR ASP GLYCIN,) 18 mg iron-1 mg -300 mg cap Take 1 capsule by mouth once daily. ARIPiprazole (ABILIFY) 5 mg tablet Take 1 tablet by mouth once daily. (Patient not taking: Reported on 07/04/2018 ) FLUoxetine (PROZAC) 10 mg capsule Take 1 capsule by mouth once daily. (Patient not taking: Reported on 07/04/2018 ) Etonogestrel-Ethinyl Estradiol (NUVARING) 0.12-0.015 mg/24 hr vaginal ring Use 1 Each vaginally as directed. INSERT ONE(1) RING VAGINALLY AND LEAVE IN PLACE FOR THREE WEEKS, THEN REMOVE FOR 1 WEEK. (Patient not taking: Reported on 07/04/2018 ) albuterol HFA (PROAIR HFA) 90 mcg/actuation inhaler Inhale as instructed. No current facility-administered medications on file prior to visit. Review of Systems: GENERAL: Negative for: Fever or Chills HEENT: Negative for: Headache (since she was ), Impaired Vision, Ringing in Ears, Nosebleeds NECK: Negative for: Swelling, Pain, Stiffness RESPIRATORY: Negative for: Cough, Shortness of breath, Wheezing - denies asthma symptoms less that weekly use of inhaler GASTROINTESTINAL: Negative for: Heartburn, Constipation, Diarrhea, Blood in stool, Vomiting MUSCULOSKELETAL: Negative for: Muscle or joint pain, stiffness, Joint swelling NEUROLOGIC/PSYCHIATRIC: Negative for: Weakness, Paralysis, Numbness, Tingling, Tremor, Anxiety, Depression, Memory loss SKIN: Negative for: Rash, Itching GENITOURINARY: Negative for: vaginal discharge, hematuria or dysuria. Positive: vaginal itching, dyspareunia after intercourse. Possible yeast infection? Had similar symptoms when with son. PHYSICAL EXAM: BP 130/84 Wt 218 lb (98.9kg) LMP 05/14/2018 GENERAL: pleasant female in no apparent distress DERMATOLOGY: Normal, without lesions, non-icteric and non-hirsute NECK: Supple, full range of motion, no adenopathy and thyroid normal CHEST: Normal inspiratory effort BREAST: soft, non-tender, symmetric, no dominant mass, normal nipple-areolar complex, no lymphadenopathy and no nipple discharge ABDOMEN: soft, non-tender, no masses, no hepatosplenomegaly, no lymphadenopathy and pannus moderate NEURO: alert and oriented x3,exam grossly non-focal PELVIS: External genitalia normal without lesions. Perineal body intact. No vaginal or cervical lesions. Cervix closed. Uterus <8 week size. No adnexal masses or tenderness. Clinical Pelvimetry: Pelvimetry clinically assessed as adequate Limited OB ultrasound exam: single intrauterine , normal bilateral adnexa and +gest sac without a yolk sac ASSESSMENT: 22 year old at 4+ wks IUP gestational age, S<D by LMP dating, Hx of LTCS, Hx Severe Pre-eclampsia, Hx of GDM, +BRCA 1/2 in first degree relative PLAN: 1) Patient oriented to practice. Discussed nutrition, folic acid supplementation, dietary guidelines, exercise, smoking, alcohol, caffeine, and drug use. Discussed routine OB labs including STD/HIV. Discussed aneuploidy screening options including serum screening and nuchal translucency. 2) History of cesearan section, patient counseled on trial of labor versus repeat cesearan section, patient desires . 3) Hx of severe, early onset pre-eclampsia - patient to start baby ASA by 12 weeks. Consider drawing baseline labs. 4) Hx GDM - early 1 hour GCT today. Nutrition reviewed. Encourage starting GDM diet now and exercising 20-30 minutes/5days a week now. Walking after meals encouraged. 5) Desires BRCA screening - MGM and mother +BRCA1/2, maternal aunts x 2 had BRCA dx in mid-30's. Will 6) Reports anxiety/depression - no meds or counseling has helped. Started before with son. Has gone to [facility] - hasn't helped in past. Anxiety/depression has been ongoing really since high school. Follow up in 2 weeks or sooner prn. Taiwo Mac APRN.CNM PROGRESS Observed: 07/04/2018 Status: COMPLETED Source: [place] 12:06 PM [facility] REPOSITORY O ID: [id number] Author: Ramiro Chauhan RN Service: (none) Author Type: (none) Type: Progress Notes Filed: 07/04/2018 12:50 PM Note Text: #: 1, Date: 08/06/17, Sex: Male, Weight: 6 lb 6 oz (2.892 kg), GA: 34w0d, Delivery: None, Apgar1: None, Apgar5: None, Living: Living, Comments: seen for OB care at [facility] sent to be induced at [place] due to preeclampsia, FTP and NRFHRP #: 2, Date: None, Sex: None, Weight: None, GA: None, Delivery: None, Apgar1: None, Apgar5: None, Living: None, Comments: None CNNURSE Observed: 07/04/2018 Status: COMPLETED Source: [place] 11:00 AM [facility] REPOSITORY Nurse Visit (WOOB) PARVIN DE OLIVEIRA ([id number]) 1995 F Date Time Provider Department 07/04/18 11:00 AM NURSE JAC [facility] [place] During your visit today, we recorded the following information about you: Last Period 01/29/18 Ramiro Chauhan RN 07/04/2018 11:53 AM Signed SEQUENTIAL SCREENINGS The [facility] offers sequential screenings for women who are interested in screenings for chromosomal abnormalities and certain defects during a . The sequential screen combines ultrasound and blood tests to determine the risk of chromosomal abnormalities, including Down's Syndrome (Trisomy 21) and Trisomy 18, as well as open neural tube defects including spina bifida. Ultrasound examination is performed between 11 weeks and 13 weeks gestational age. Blood tests are drawn after the ultrasound and again later in the between 15 and 21 weeks gestational age. Please let your physician know if you are interested in this testing. It will require an appointment with our appliance service technician. This is not an ultrasound performed by a physician in our office during a routine visit. SIGNS AND SYMPTOMS OF LABOR 1. Contractions every 10 minutes or more often 2. Clear, pink, or brownish fluid (water) leaking from vagina 3. Feeling that baby is pushing down, pressure 4. Low, dull backache 5. Cramps that feel like a period 6. Cramps with or without diarrhea If you notice any of the above symptoms, contact our office at [phone] and ask to speak with a nurse. After hours, you can call doctors registry at [phone] OR call [facility] at [phone] and ask to have the doctor business administration program chair paged. If you consider this an emergency, dial 9- or go to your nearest emergency department. Cord-Blood Banking Up until recently, the umbilical cord--along with the blood that remained in it after a baby was born and the cord cut--was simply discarded by the hospital. Then, in the late 1980s, researchers discovered that cord blood possessed unusual properties that made it useful in the treatment of patients with some cancers and other illnesses. While the actual process of collecting cord blood is straightforward, many parents are not even aware that this option now exists, much less familiar with all the issues involved. The case for saving your baby's cord blood The blood running back and forth between your baby and the placenta is full of immature cells called stem cells. Unlike embryonic stem cells, which have the ability to develop into any type of body cell, cord-blood stem cells already are locked into a certain, vital function: making all the different components of the blood, such as platelets, white blood cells, and red blood cells-serving, in effect, like bone marrow. When transfused into a patient whose own blood cells have faulty genetic coding or have been destroyed by chemotherapy or other cancer treatments, the cord-blood cells can implant themselves in the bone marrow and generate legions of new, healthy cells. These days, cord-blood transplants most commonly are used in cancer patients when a donor can't be found for a bone-marrow transplant. The treatment is particularly effective in young patients-the [facility] Cord Blood Bank reports a 70 percent success rate in children, but only 20 to 40 percent in adults. Researchers envision improving those odds and see many future applications as well, such as curing sickle cell disease and other blood-related genetic illnesses. So there is a possibility that your child, or someone else, may need these super-healthy and versatile cells one day. The drawbacks Aside from not knowing about this medical option, the main reason most people do not save their baby's stem cells is cost. In a private blood bank, the initial costs run from $275 to $1,500. Most also charge a yearly storage fee of $50 to $95. The advantage of using a private bank is that your sample is saved for only you to use. An alternative to private banking Public cord-blood guardado are an alternative. These cost no money to use, but your sample is not specifically saved for you. Another person with a more immediate need may use it. If the time should come that you need stem cells, yours may still be available, or you may use donations from other people without charge. You also can direct your sample to go to a relative with an immediate need if the blood type matches. Anyone else needing to use stem cells from a public bank who has not been a donor must pay for it, sometimes tens of thousands of dollars. Will my family benefit from saving stem cells? Right now, situations in which stem cells would be helpful are quite rare. As mentioned earlier, stem-cell transplants are most commonly used for rare genetic conditions and for some types of cancer, including leukemia and lymphoma. And even with these present uses, many questions remain. In cancer treatment, for example, some researchers are concerned about the wisdom of transplanting back into the child the same cells that already showed a propensity to become malignant. Doctors also aren't sure if the number of cells taken at the time of would be enough to treat a full-grown 16-year-old. It is also not completely clear how active the cells would be after years of being stored. The treatment is so new and rare, we just don't have the data yet to resolve these important issues. What do the experts say? The [place] [employer] encourages philanthropic blood banking in public guardado, but only for families with a current or potential need. Blood-bank proponents encourage any kind of banking, pointing out that research is getting closer and closer to many diverse, live-saving applications. How do I decide? Each family must weigh the pros and cons for themselves. Some families say that any cost is worth their peace of mind. Others say that in the face of uncertainty about the effectiveness of the treatment, they will use their resources elsewhere. Some choose the middle ground of donating publicly, knowing that their sample might benefit another family, if not themselves. For more information, ask your doctor or nurse, and be sure to check out our article on the technical aspects of cord-blood banking. Technical Aspects of Cord-Blood Banking If you are interested in storing your baby's umbilical-cord blood because of its possible use in emerging medical treatments, you must make arrangements with a blood bank before your child is born. The collection procedure is quite simple: After delivery of the baby, the umbilical cord is clamped and cut in the usual way. The blood that remains in the umbilical-cord vessels is then collected in sterile containers. The blood may be removed from the cord with a large needle or allowed to flow freely, depending on the company's collection system. The containers may look like large test tubes or like the plastic bags used in a blood bank. It does not cause the mother or the baby any pain to collect the blood, and no blood is taken that the baby needs at the moment. The nurse, business performance analyst, or physician will then label the samples, check them over with you, and package them for a special pickup arranged with a commercial carrier. When the blood arrives at the blood-bank facility, it is processed and the parents are notified. It is then kept in an advanced storage system for years. How do I know that my sample is safe? Power outages and bankruptcies potentially could threaten any organization, but so far none have been reported. It is to be hoped that the scientists in these guardado would arrange for safe transfer to another facility if the need arose. YOU MUST MAKE ARRANGEMENTS AHEAD OF TIME! Public cord-blood guardado--DONATION: [employer] [phone] [facility]'s Placental Blood Program, [facility] Umbilical Cord Blood Bank, Private cord-blood guardado--SAVING FOR YOUR OWN USE: Cryo[employer]Cell [employer], (I think this is the least expensive) [employer] [phone] [employer], ([phone]) [employer] [place] Cord Blood [facility], [phone] 700-CORD Cells, [phone] [place] [facility], Cord Blood Registry, (310) [facility], An Internet search may provide you with additional listings. Ramiro Chauhan RN 07/04/2018 12:50 PM Signed #: 1, Date: [birth year]17, Sex: Male, Weight: 6 lb 6 oz (2.892 kg), GA: 34w0d, Delivery: None, Apgar1: None, Apgar5: None, Living: Living, Comments: seen for OB care at [facility] [facility] sent to be induced at [place] due to preeclampsia, FTP and NRFHRP #: 2, Date: None, Sex: None, Weight: None, GA: None, Delivery: None, Apgar1: None, Apgar5: None, Living: None, Comments: None Referring Provider: SELF [200] Allergies As of Date: 07/04/2018 Noted Allergy Reaction AMOXICILLIN 2 - Rash Date Reviewed: 07/04/2018 Reviewed by: Ramiro Chauhan RN - Fully Assessed Reason for Visit: Care [86] Cmt: Pre-New OB Primary Visit Diagnosis:Irregular menses [N92.6] Other Visit Diagnoses:PREV DELIVERY [654.23] [O34.219] Short interval between pregnancies affecting , antepartum [O09.899] Previous delivery affecting , antepartum [O34.219] Hx of preeclampsia, prior , currently [O09.299] History of gestational diabetes in prior , currently [O09.299, Z86.32] Nausea and vomiting in [O21.9] History of depression [Z86.59] Family history of Down syndrome [Z82.79] Patient requested diagnostic testing [Z01.89] Order(s):HCG QUAL UR [SQUHCG] Order #: [id number] FUTURE [facility]SHLEY PT ED [employer] [] Order #: [id number]: 1 ASHLEY PT ED [employer]ED METAL ARC [] Order #: [id number]: 1 ASHLEY PT ED [employer]ED MET[employer] ARC [] Order #: [id number]: 1 ASHLEY PT ED [employer]ED MET[employer] ARC [] Order #: [id number]: 1 HCG QUAL UR B/O [1451920] Order #: [id number] Prescriptions as of 07/04/2018 Sig: ALBUTEROL SULFATE HFA 90 MCG/* Inhale as instructed. ARIPIPRAZOLE 5 MG TABLET Take 1 tablet by mouth once d* Patient not taking: Reported on 07/04/2018 FLUOXETINE 10 MG CAPSULE Take 1 capsule by mouth once * Patient not taking: Reported on 07/04/2018 ETONOGESTREL-ETHINYL ESTRADIO* Use 1 Each vaginally as direc* Patient not taking: Reported on 07/04/2018 Problem List As Of Date 07/04/2018 Noted Resolved RUQ pain [R10.11] INVALID FOR* Anxiety and depression [F41.9, F32.9] INVALID FOR* Mood disorder (HCC) [F39] INVALID FOR* More... Short interval between pregnancies affecting pr*INVALID FOR* More... Previous delivery affecting ,*INVALID FOR* More... Hx of preeclampsia, prior , currently *INVALID FOR* History of gestational diabetes in prior pregna*INVALID FOR* More... Nausea and vomiting in [O21.9] INVALID FOR* More... History of depression [Z86.59] INVALID FOR* More... Family history of Down syndrome [Z82.79] INVALID FOR* More... Patient requested diagnostic testing [Z01.89] INVALID FOR* More... Other instructions from your clinician: SEQUENTIAL SCREENINGS The [facility] offers sequential screenings for women who are interested in screenings for chromosomal abnormalities and certain defects during a . The sequential screen combines ultrasound and blood tests to determine the risk of chromosomal abnormalities, including Down's Syndrome (Trisomy 21) and Trisomy 18, as well as open neural tube defects including spina bifida. Ultrasound examination is performed between 11 weeks and 13 weeks gestational age. Blood tests are drawn after the ultrasound and again later in the between 15 and 21 weeks gestational age. Please let your physician know if you are interested in this testing. It will require an appointment with our appliance service technician. This is not an ultrasound performed by a physician in our office during a routine visit. SIGNS AND SYMPTOMS OF LABOR 1. Contractions every 10 minutes or more often 2. Clear, pink, or brownish fluid (water) leaking from vagina 3. Feeling that baby is pushing down, pressure 4. Low, dull backache 5. Cramps that feel like a period 6. Cramps with or without diarrhea If you notice any of the above symptoms, contact our office at [phone] and ask to speak with a nurse. After hours, you can call doctors registry at [phone] OR call [facility] at [phone] and ask to have the doctor business administration program chair paged. If you consider this an emergency, dial 9-1-1 or go to your nearest emergency department. Cord-Blood Banking Up until recently, the umbilical cord--along with the blood that remained in it after a baby was born and the cord cut--was simply discarded by the hospital. Then, in the late 1980s, researchers discovered that cord blood possessed unusual properties that made it useful in the treatment of patients with some cancers and other illnesses. While the actual process of collecting cord blood is straightforward, many parents are not even aware that this option now exists, much less familiar with all the issues involved. The case for saving your baby's cord blood The blood running back and forth between your baby and the placenta is full of immature cells called stem cells. Unlike embryonic stem cells, which have the ability to develop into any type of body cell, cord-blood stem cells already are locked into a certain, vital function: making all the different components of the blood, such as platelets, white blood cells, and red blood cells-serving, in effect, like bone marrow. When transfused into a patient whose own blood cells have faulty genetic coding or have been destroyed by chemotherapy or other cancer treatments, the cord-blood cells can implant themselves in the bone marrow and generate legions of new, healthy cells. These days, cord-blood transplants most commonly are used in cancer patients when a donor can't be found for a bone-marrow transplant. The treatment is particularly effective in young patients- the [facility] Cord Blood [facility] reports a 70 percent success rate in children, but only 20 to 40 percent in adults. Researchers envision improving those odds and see many future applications as well, such as curing sickle cell disease and other blood-related genetic illnesses. So there is a possibility that your child, or someone else, may need these super-healthy and versatile cells one day. The drawbacks Aside from not knowing about this medical option, the main reason most people do not save their baby's stem cells is cost. In a private blood bank, the initial costs run from $275 to $1,500. Most also charge a yearly storage fee of $50 to $95. The advantage of using a private bank is that your sample is saved for only you to use. An alternative to private banking Public cord-blood guardado are an alternative. These cost no money to use, but your sample is not specifically saved for you. Another person with a more immediate need may use it. If the time should come that you need stem cells, yours may still be available, or you may use donations from other people without charge. You also can direct your sample to go to a relative with an immediate need if the blood type matches. Anyone else needing to use stem cells from a public bank who has not been a donor must pay for it, sometimes tens of thousands of dollars. Will my family benefit from saving stem cells? Right now, situations in which stem cells would be helpful are quite rare. As mentioned earlier, stem-cell transplants are most commonly used for rare genetic conditions and for some types of cancer, including leukemia and lymphoma. And even with these present uses, many questions remain. In cancer treatment, for example, some researchers are concerned about the wisdom of transplanting back into the child the same cells that already showed a propensity to become malignant. Doctors also aren't sure if the number of cells taken at the time of would be enough to treat a full-grown 16-year-old. It is also not completely clear how active the cells would be after years of being stored. The treatment is so new and rare, we just don't have the data yet to resolve these important issues. What do the experts say? The [place] [employer] encourages philanthropic blood banking in public guardado, but only for families with a current or potential need. Blood-bank proponents encourage any kind of banking, pointing out that research is getting closer and closer to many diverse, live-saving applications. How do I decide? Each family must weigh the pros and cons for themselves. Some families say that any cost is worth their peace of mind. Others say that in the face of uncertainty about the effectiveness of the treatment, they will use their resources elsewhere. Some choose the middle ground of donating publicly, knowing that their sample might benefit another family, if not themselves. For more information, ask your doctor or nurse, and be sure to check out our article on the technical aspects of cord-blood banking. Technical Aspects of Cord-Blood Banking If you are interested in storing your baby's umbilical- cord blood because of its possible use in emerging medical treatments, you must make arrangements with a blood bank before your child is born. The collection procedure is quite simple: After delivery of the baby, the umbilical cord is clamped and cut in the usual way. The blood that remains in the umbilical-cord vessels is then collected in sterile containers. The blood may be removed from the cord with a large needle or allowed to flow freely, depending on the company's collection system. The containers may look like large test tubes or like the plastic bags used in a blood bank. It does not cause the mother or the baby any pain to collect the blood, and no blood is taken that the baby needs at the moment. The nurse, business performance analyst, or physician will then label the samples, check them over with you, and package them for a special pickup arranged with a commercial carrier. When the blood arrives at the blood- bank facility, it is processed and the parents are notified. It is then kept in an advanced storage system for years. How do I know that my sample is safe? Power outages and bankruptcies potentially could threaten any organization, but so far none have been reported. It is to be hoped that the scientists in these guardado would arrange for safe transfer to another facility if the need arose. YOU MUST MAKE ARRANGEMENTS AHEAD OF TIME! Public cord-blood guardado--DONATION: [employer] [phone] [facility] Placental Blood Program, [facility] Umbilical Cord Blood Bank, Private cord-blood guardado--SAVING FOR YOUR OWN USE: Cryo-Cell [employer], (I think this is the least expensive) [employer] [phone] [employer], ([phone]) [employer] [place] Cord Blood [facility], [phone] 700-CORD Cells, [phone] [place] [facility], Cord Blood Registry, (111) CORDBLOOD [employer], An Internet search may provide you with additional listings. Disposition: Return in about 4 days (around 07/08/2018) for New OB with Taiwo Mac. Follow-up and Disposition History Recorded Letter Text Dear Parvin De Oliveira: How to activate your [facility] Veeip Account 1. Visit the Veeip Signup page at [email or web address] 2. Identify yourself using your one-time use activation code: [email or web address] 3. Follow the on-screen prompts to choose your own secure username and password The following information will be necessary to access your account for the first time: Information needed for sign-up: Your custom activation code used one-time only for the initial account set-up. Your date of The last 4 digits of your social security number What to do next: Fill in the requested information on the Identify Yourself Form at [email or web address] , click Next. Create your login and password, choose a Veeip ID and password that will be easy for you to use, but impossible for anyone else to guess. Pick a security question that will assist you in the event you forget your password the next time you log-on. If you have difficulty activating your account, please call our Veeip helpline at [phone] or toll free at . We hope you enjoy using Veeip! Kindest Regards, [facility] Veeip Team Encounter Status:Closed by RAMIRO CHAUHAN RN on 07/04/18 DISCHARGE INSTRUCTION Observed: 06/14/2018 Status: F Source: BE 4:56 PM [facility] REPOSITORY [facility] Medical Records Department [address] [place] [address] Discharge Instruction 06/14/18 1508 MR#: [id number] Acct: [id number] Name: PARVIN DE OLIVEIRA Rep #: [id number] : 1995 22 From: Jose Canas MD PCP: Nuno Timmons MD Status: DEP ER ED Disposition - Plan for ED Patient: Chief Complaint: Nausea/Vomiting Instructions: ED Diet Vomiting Diarrhea Prescriptions: Loperamide [Imodium] 2 mg PO Q4H PRN PRN #20 cap PRN Reason: Diarrhea Ondansetron [Zofran Odt] 4 mg PO Q8H PRN PRN #10 tab PRN Reason: Nausea Referrals: Nuno Timmons MD [Primary Care Provider] - What to do if you have Problems For any increased pain, shortness of breath, bleeding, nausea or vomiting, chest pain, or any unexpected problems, contact your Primary Care Provider. Call [facility] ([phone]) or report to the closest Emergency Room. Call 911 if necessary. 06/14/18 1656 <Electronically signed by Jose Canas MD> Date Jose Canas MD Cosigner Signature (If Indicated): Date CC: Nuno Timmons MD EMERGENCY DEPARTMENT Observed: 06/14/2018 Status: F Source: [place] SUMMARY 4:56 PM [facility] REPOSITORY [facility] Medical Records Department [address] [place] [address] Emergency Department Summary 06/14/18 1325 MR#: [id number] Acct: [id number] Name: PARVIN DE OLIVEIRA Rep #: [id number] : 1995 22 From: Jose Canas MD PCP: Nuno Timmons MD Status: DEP ER - ER Visit Summary Date of Service: 06/14/18 Chief Complaint: Nausea, vomiting, and diarrhea History of Present Illness: The patient is a 22 F with nausea, vomiting, and diarrhea that started at 2 AM today. Associated with low-grade fevers and diffuse abdominal cramps. Patient is otherwise healthy. No recent medical problems, hospitalizations, surgeries, or new medications. Physical Examination: Tachycardia but otherwise vitals unremarkable. Temperature 99.5. Alert and oriented. Mucous membranes normal. Skin appears normal. Heart regular but tachycardic. Lungs clear. Abdomen soft and nontender. Test Results: None ordered Emergency Department Course and Treatment: Patient treated with fluids, Zofran, and Imodium. I suspect this is a viral illness. I have seen many patients with similar symptoms today. She does not have any red flag features are concerning history. Patient is feeling better after meds and fluids. Will discharge. Prescription for Zofran and Imodium. Stay hydrated. Follow-up with primary care. Treatment Plan: Above Disposition: Discharge Impression: 1. Nausea vomiting and diarrhea This note was generated with BitDefenderation software. It may contain incorrect words, spelling, and punctuation that were not noted in review of the chart prior to signing ED Disposition - Plan for ED Patient: Chief Complaint: Nausea/Vomiting Referrals: Nuno Timmons MD [Primary Care Provider] - What to do if you have Problems For any increased pain, shortness of breath, bleeding, nausea or vomiting, chest pain, or any unexpected problems, contact your Primary Care Provider. Call [facility] ([phone]) or report to the closest Emergency Room. Call 911 if necessary. 06/14/18 5606 <Electronically signed by Jose Canas MD> Date Jose Canas MD Cosigner Signature (If Indicated): Date CC: Nuno Timmons MD PROGRESS Observed: 05/13/2018 Status: COMPLETED Source: [place] 8:52 AM [facility] REPOSIT[facility] O ID: [id number] Author: Nuno Timmons Service: (none) Author Type: Physician Type: Progress Notes Filed: 05/13/2018 9:12 AM Note Text: Reason for Visit Patient presents with: Establish Care: establish care Parvin De Oliveira is a 22 year old female who presents here today for Above Complaints.. Health Maintenance HPV VACCINE(1 - Female 3-dose series) DTAP,TDAP,TD(1 - Tdap) GC (GONORRHEA) SCREENING (18-24) CHLAMYDIA SCREENING (18-24) PAP EVERY 3 YEARS (21-30 YEAR OLDS) INFLUENZA(1) HPI Patient has been on prozac for 12 days and it has not been working yet Below is a note from Jorge Gardner 12 days ago: Parvin De Oliveira is an 22 year old female who presents with for follow up of depression and anxiety treatment. Started on Wellbutrin ~2.5 months ago for anxiety, depression and history of ADD/ADHD as a child. Prior to she was started on Celexa and Lamictal for possible bipolar which she self discontinued but has restarted her Celexa without any notable improvement symptoms. She has since followed up with [facility]- diagnosed with Major depressive disorder and social anxiety disorder. No upcoming appointments, told it will be some time before she is seen by psychiatrist Since last visit patient depressed mood, anxious feelings, panic attacks, insomnia, fatigue, difficulty concentrating and hopelessness. Symptoms have occurred daily. Panic hx: Yes, feeling of difficulty breathing and looking around waiting for something to happen occurs mostly at night/bedtime. Sleep Problems: Yes, falling and staying asleep. Mostly related to anxiety Appetite: good ? Denies any SI/HI ? Support system: , grandmother and mother ? Positive health behaviors: nothing noted. States she is disinterested in most things except caring for her son. She notes she is depressed for the past 3 years, she was working before having her son 9 months ago. She is not nursing.....she has equal anxiety and depression and a lot of medication dont work for her. Patient is not responding to the typical antidepressants. No problem-specific Assessment AND Plan notes found for this encounter. PAST MEDICAL HISTORY Diagnosis Date - Anxiety and depression 12/09/2017 - Major depressive disorder, recurrent, moderate (HCC) 03/27/2018 - Social anxiety disorder 03/27/2018 PAST SURGICAL HISTORY Procedure Laterality Date - CHOLECYSTECTOMY - PAST SURGICAL HISTORY OF cyst in jaw removed - REMOVAL OF TONSILS,<12 Y/O Tonsillectomy age 4 FAMILY HISTORY Problem Relation Age of Onset - Ovarian cancer Maternal Aunt two aunts w/ ovarian cancer - other (Other) Mother BRCA 1 and 2 positive - Thyroid Maternal Grandmother - Psychiatry Maternal Grandmother anxiety and depression - other (Other) Maternal Grandmother BRCA 1 AND 2 positive - Breast Cancer Maternal Aunt diagnosed at age 37 - Psychiatry Maternal Grandfather anxiety and depression Social History Substance Use Topics - Smoking status: Never Smoker - Smokeless tobacco: Never Used - Alcohol use No Past medical history, appointments, medications, allergies reviewed. Pertinent Lab/Diagnostic Studies are reviewed and discussed today Current Outpatient Prescriptions: - FLUoxetine (PROZAC) 10 mg capsule - buPROPion (WELLBUTRIN) 100 mg tablet - Etonogestrel-Ethinyl Estradiol (NUVARING) 0.12-0.015 mg/24 hr vaginal ring - albuterol HFA (PROAIR HFA) 90 mcg/actuation inhaler Review of Systems CONSTITUTIONAL: No fevers, chills night sweats, unintended weight loss CARDIOVASCULAR: No chest pain, dyspnea, palpitations, orthopnea, PND, ankle edema. PULM: No dyspnea, unexplained cough. GI: No dysphagia/odynophagia, problematic reflux, constipation, diarrhea, changes in stool habits, hematochezia, melena. : No new urinary complaints, including dysuria, gross hematuria or pyuria. NEURO: No new balance problems, peripheral weakness/paresthesias or numbness of concern. Physical Exam BP 128/70 (BP Site: Right Arm, BP Position: Sitting, BP Cuff Size: Large Adult) Pulse 97 Resp 14 Ht 157.5 cm (5' 2) Wt 99.8 kg (220 lb) SpO2 97% BMI 40.24 kg/m? General appearance: Well appearing, alert, in no acute distress, well nourished. Skin: Skin color, texture, turgor normal, no suspicious rashes or lesions Head: Normocephalic, no masses, lesions, tenderness or abnormalities Eyes: Anicteric sclera. Pupils are equally round and reactive to light. Extraocular movements are intact. Lungs: Lungs clear to auscultation. No wheezing, rhonchi, rales Heart: RRR without murmur, gallop, or rubs. Extremities: No deformities, edema, skin discoloration, clubbing or cyanosis. Good capillary refill. ASSESSMENT/PLAN: 1. Anxiety and depression - ICD9: 300.00, 311, ICD10: F41.9, F32.9 Went over the side effect profile for the drug with the patient, mentioned every one of it , discussed appropriate concerns , alternatives and benefits of the drug, Discussed prozac and abilify may have interactions but at a low dose may not be a huge problem. - ARIPIPRAZOLE 5 MG TABLET To ER for worsening symptoms, mental status changes, SOB, or side effects of meds that are severe especially allergic reactions causing air way compromise. Patient needs to add abilify to the prozac, discussed with her that she needs to wait more than a month before getting off the abilify Also discussed she has atypical depression and anxiety as all the regular medications dont work for her. NUNO TIMMONS MD CNOV Observed: 05/13/2018 Status: COMPLETED Source: [place] 8:20 AM [facility] REPOSITORY Office Visit (INTMWS) PARVIN DE OLIVEIRA ([id number]) 1995 F Date Time Provider Department 05/13/18 8:20 AM NUNO TIMMONS During your visit today, we recorded the following information about you: Pulse Respiration Blood pressure Weight 97/minute 14/minute 128/70 99.8 kg Height 1.575 m NUNO TIMMONS MD 05/13/2018 9:12 AM Addendum Reason for Visit Patient presents with: Establish Care: establish care Parvin De Oliveira is a 22 year old female who presents here today for Above Complaints.. Health Maintenance HPV VACCINE(1 - Female 3-dose series) DTAP,TDAP,TD(1 - Tdap) GC (GONORRHEA) SCREENING (18-24) CHLAMYDIA SCREENING (18-24) PAP EVERY 3 YEARS (21-30 YEAR OLDS) INFLUENZA(1) HPI Patient has been on prozac for 12 days and it has not been working yet Below is a note from Jorge Gardner 12 days ago: Parvin De Oliveira is an 22 year old female who presents with for follow up of depression and anxiety treatment. Started on Wellbutrin ~2.5 months ago for anxiety, depression and history of ADD/ADHD as a child. Prior to she was started on Celexa and Lamictal for possible bipolar which she self discontinued but has restarted her Celexa without any notable improvement symptoms. She has since followed up with counseling center- diagnosed with Major depressive disorder and social anxiety disorder. No upcoming appointments, told it will be some time before she is seen by psychiatrist Since last visit patient depressed mood, anxious feelings, panic attacks, insomnia, fatigue, difficulty concentrating and hopelessness. Symptoms have occurred daily. Panic hx: Yes, feeling of difficulty breathing and looking around waiting for something to happen occurs mostly at night/bedtime. Sleep Problems: Yes, falling and staying asleep. Mostly related to anxiety Appetite: good ? Denies any SI/HI ? Support system: , grandmother and mother ? Positive health behaviors: nothing noted. States she is disinterested in most things except caring for her son. She notes she is depressed for the past 3 years, she was working before having her son 9 months ago. She is not nursing.....she has equal anxiety and depression and a lot of medication dont work for her. Patient is not responding to the typical antidepressants. No problem-specific Assessment AND Plan notes found for this encounter. PAST MEDICAL HISTORY Diagnosis Date - Anxiety and depression 12/09/2017 - Major depressive disorder, recurrent, moderate (HCC) 03/27/2018 - Social anxiety disorder 03/27/2018 PAST SURGICAL HISTORY Procedure Laterality Date - CHOLECYSTECTOMY - PAST SURGICAL HISTORY OF cyst in jaw removed - REMOVAL OF TONSILS,<11 Y/O Tonsillectomy age 4 FAMILY HISTORY Problem Relation Age of Onset - Ovarian cancer Maternal Aunt two aunts w/ ovarian cancer - other (Other) Mother BRCA 1 and 2 positive - Thyroid Maternal Grandmother - Psychiatry Maternal Grandmother anxiety and depression - other (Other) Maternal Grandmother BRCA 1 AND 2 positive - Breast Cancer Maternal Aunt diagnosed at age 37 - Psychiatry Maternal Grandfather anxiety and depression Social History Substance Use Topics - Smoking status: Never Smoker - Smokeless tobacco: Never Used - Alcohol use No Past medical history, appointments, medications, allergies reviewed. Pertinent Lab/Diagnostic Studies are reviewed and discussed today Current Outpatient Prescriptions: - FLUoxetine (PROZAC) 10 mg capsule - buPROPion (WELLBUTRIN) 100 mg tablet - Etonogestrel-Ethinyl Estradiol (NUVARING) 0.12-0.015 mg/24 hr vaginal ring - albuterol HFA (PROAIR HFA) 90 mcg/actuation inhaler Review of Systems CONSTITUTIONAL: No fevers, chills night sweats, unintended weight loss CARDIOVASCULAR: No chest pain, dyspnea, palpitations, orthopnea, PND, ankle edema. PULM: No dyspnea, unexplained cough. GI: No dysphagia/odynophagia, problematic reflux, constipation, diarrhea, changes in stool habits, hematochezia, melena. : No new urinary complaints, including dysuria, gross hematuria or pyuria. NEURO: No new balance problems, peripheral weakness/paresthesias or numbness of concern. Physical Exam BP 128/70 (BP Site: Right Arm, BP Position: Sitting, BP Cuff Size: Large Adult) Pulse 97 Resp 14 Ht 157.5 cm (5' 2) Wt 99.8 kg (220 lb) SpO2 97% BMI 40.24 kg/m? General appearance: Well appearing, alert, in no acute distress, well nourished. Skin: Skin color, texture, turgor normal, no suspicious rashes or lesions Head: Normocephalic, no masses, lesions, tenderness or abnormalities Eyes: Anicteric sclera. Pupils are equally round and reactive to light. Extraocular movements are intact. Lungs: Lungs clear to auscultation. No wheezing, rhonchi, rales Heart: RRR without murmur, gallop, or rubs. Extremities: No deformities, edema, skin discoloration, clubbing or cyanosis. Good capillary refill. ASSESSMENT/PLAN: 1. Anxiety and depression - ICD9: 300.00, 311, ICD10: F41.9, F32.9 Went over the side effect profile for the drug with the patient, mentioned every one of it , discussed appropriate concerns , alternatives and benefits of the drug, Discussed prozac and abilify may have interactions but at a low dose may not be a huge problem. - ARIPIPRAZOLE 5 MG TABLET To ER for worsening symptoms, mental status changes, SOB, or side effects of meds that are severe especially allergic reactions causing air way compromise. Patient needs to add abilify to the prozac, discussed with her that she needs to wait more than a month before getting off the abilify Also discussed she has atypical depression and anxiety as all the regular medications dont work for her. NUNO TIMMONS MD Referring Provider: DALILA DUMONT ([facility]) [[id number]] Allergies As of Date: 05/13/2018 Noted Allergy Reaction AMOXICILLIN 2 - Rash Date Reviewed: 05/13/2018 Reviewed by: Leonid Falk LPN - Fully Assessed Reason for Visit: Establish Care [42] Cmt: establish care Primary Visit Diagnosis:Anxiety and depression [F41.9, F32.9] Order(s):ARIPiprazole (ABILIFY) 5 mg tabletTake 1 tablet by mouth once daily.Disp: 30 tabletRfl: 3 Prescriptions as of 05/13/2018 Sig: ARIPIPRAZOLE 5 MG TABLET Take 1 tablet by mouth once d* FLUOXETINE 10 MG CAPSULE Take 1 capsule by mouth once * ETONOGESTREL-ETHINYL ESTRADIO* Use 1 Each vaginally as direc* ALBUTEROL SULFATE HFA 90 MCG/* Inhale as instructed. Medication notes this encounter FLUOXETINE 10 MG CAPSULE >> Leonid Falk LPN 05/13/2018 8:32 AM >> LEONID FALK LPN SatMay 13, 2018 8:32 AM not working BUPROPION HCL 100 MG TABLET >> Leonid Falk LPN 05/13/2018 8:32 AM >> LEONID FALK LPN May 13, 2018 8:32 AM has not been taking with prozac at this time Problem List As Of Date 05/13/2018 Noted Resolved RUQ pain [R10.11] INVALID FOR* Anxiety and depression [F41.9, F32.9] INVALID FOR* Mood disorder (HCC) [F39] INVALID FOR* More... Prescriptions ordered this encounter Disp Refills Start End ARIPIPRAZOLE 5 MG TABLET 30 t* 3 05/13/2018 Route: ORAL Sig: Take 1 tablet by mouth once daily. Medications Discontinued During This Encounter buPROPion (WELLBUTRIN) 100 mg tablet 60 t* 0 02/06/2018 05/13/2018 Route: ORAL Sig: Take 1 tablet by mouth twice daily. Disc: Reason for discontinue is not on file. Encounter Status:Closed by NUNO TIMMONS MD on 05/13/18 PROGRESS Observed: 04/30/2018 Status: COMPLETED Source: [place] 10:54 AM [facility] REPOSITORY O ID: [id number] Author: Jorge (Cici) Lowell Service: (none) Author Type: Nurse Practitioner Type: Progress Notes Filed: 04/30/2018 11:34 AM Note Text: HPI/CC: Parvin De Oliveira is an 22 year old female who presents with for follow up of depression and anxiety treatment. Started on Wellbutrin ~2.5 months ago for anxiety, depression and history of ADD/ADHD as a child. Prior to she was started on Celexa and Lamictal for possible bipolar which she self discontinued but has restarted her Celexa without any notable improvement symptoms. She has since followed up with counseling center- diagnosed with Major depressive disorder and social anxiety disorder. No upcoming appointments, told it will be some time before she is seen by psychiatrist Since last visit patient depressed mood, anxious feelings, panic attacks, insomnia, fatigue, difficulty concentrating and hopelessness. Symptoms have occurred daily. Panic hx: Yes, feeling of difficulty breathing and looking around waiting for something to happen occurs mostly at night/bedtime. Sleep Problems: Yes, falling and staying asleep. Mostly related to anxiety Appetite: good Denies any SI/HI Support system: , grandmother and mother Positive health behaviors: nothing noted. States she is disinterested in most things except caring for her son. ROS as above, otherwise non-contributory. Reviewed PMHx, PSHx, social Hx, medications and allergies. PHYSICAL EXAMINATION: BP 118/74 Pulse 72 Temp 36.6 ?C (97.9 ?F) (Temporal Artery) Resp 16 Wt 98.4 kg (217 lb) SpO2 99% BMI 39.69 kg/m? Appearance: well dressed well groomed, cooperative and pleasant Behavior: poor eye contact Speech: normal Mood: depressed Affect: flat Perceptions: none Thought process: goal directed Thought Content: normal Insight: fair Judgment: fair Lungs: Lungs clear to auscultation. No wheezing, rhonchi, rales Heart: RRR without murmur, gallop, or rubs. No ectopy ASSESSMENT/PLAN: 1. Moderate episode of recurrent major depressive disorder (HCC) - ICD9: 296.32, ICD10: F33.1 (primary diagnosis) - Unchanged - Stop Celexa, begin Zoloft - Continue Wellbutin - Follow up in 3-4 weeks 2. Social anxiety disorder - ICD9: 300.23, ICD10: F40.10 - Plan as above Prescription instructions reviewed with patient as applicable. Potential red flag symptoms discussed with the patient. Reviewed appropriate action plan to take if red flag symptoms occur. Patient agreeable to treatment plan. VINICIUS ClancyOV Observed: 04/30/2018 Status: COMPLETED Source: [place] 10:40 AM [facility] REPOSITORY Office Visit (INTMWS) PARVIN DE OLIVEIRA ([id number]) 1995 F Date Time Provider Department 04/30/18 10:40 AM JORGE ENCARNACION ([facility]) INTMWS During your visit today, we recorded the following information about you: Temperature Pulse Respiration Blood pressure 97.9 degrees 72/minute 16/minute 118/74 Weight 98.4 kg Jorge Encarnacion APRN.CNP 04/30/2018 11:34 AM Signed HPI/CC: Parvin De Oliveira is an 22 year old female who presents with for follow up of depression and anxiety treatment. Started on Wellbutrin ~2.5 months ago for anxiety, depression and history of ADD/ADHD as a child. Prior to she was started on Celexa and Lamictal for possible bipolar which she self discontinued but has restarted her Celexa without any notable improvement symptoms. She has since followed up with [facility]- diagnosed with Major depressive disorder and social anxiety disorder. No upcoming appointments, told it will be some time before she is seen by psychiatrist Since last visit patient depressed mood, anxious feelings, panic attacks, insomnia, fatigue, difficulty concentrating and hopelessness. Symptoms have occurred daily. Panic hx: Yes, feeling of difficulty breathing and looking around waiting for something to happen occurs mostly at night/bedtime. Sleep Problems: Yes, falling and staying asleep. Mostly related to anxiety Appetite: good Denies any SI/HI Support system: , grandmother and mother Positive health behaviors: nothing noted. States she is disinterested in most things except caring for her son. ROS as above, otherwise non-contributory. Reviewed PMHx, PSHx, social Hx, medications and allergies. PHYSICAL EXAMINATION: BP 118/74 Pulse 72 Temp 36.6 ?C (97.9 ?F) (Temporal Artery) Resp 16 Wt 98.4 kg (217 lb) SpO2 99% BMI 39.69 kg/m? Appearance: well dressed well groomed, cooperative and pleasant Behavior: poor eye contact Speech: normal Mood: depressed Affect: flat Perceptions: none Thought process: goal directed Thought Content: normal Insight: fair Judgment: fair Lungs: Lungs clear to auscultation. No wheezing, rhonchi, rales Heart: RRR without murmur, gallop, or rubs. No ectopy ASSESSMENT/PLAN: 1. Moderate episode of recurrent major depressive disorder (HCC) - ICD9: 296.32, ICD10: F33.1 (primary diagnosis) - Unchanged - Stop Celexa, begin Zoloft - Continue Wellbutin - Follow up in 3-4 weeks 2. Social anxiety disorder - ICD9: 300.23, ICD10: F40.10 - Plan as above Prescription instructions reviewed with patient as applicable. Potential red flag symptoms discussed with the patient. Reviewed appropriate action plan to take if red flag symptoms occur. Patient agreeable to treatment plan. Jorge Encarnacion APRN.CIIC Referring Provider: SELF [[id number]] Allergies As of Date: 04/30/2018 Noted Allergy Reaction AMOXICILLIN 2 - Rash Date Reviewed: 04/30/2018 Reviewed by: Dunia Fontaine Ma - Fully Assessed Reason for Visit: Recheck [92] Cmt: Medication follow up Primary Visit Diagnosis:Moderate episode of recurrent major depressive disorder (HCC) [F33.1] Other Visit Diagnosis:Social anxiety disorder [F40.10] Order(s):sertraline (ZOLOFT) 50 mg tabletTake 1 tablet by mouth once daily.Disp: 30 tabletRfl: 0 Prescriptions as of 04/30/2018 Sig: SERTRALINE 50 MG TABLET Take 1 tablet by mouth once d* BUPROPION HCL 100 MG TABLET Take 1 tablet by mouth twice * ETONOGESTREL-ETHINYL ESTRADIO* Use 1 Each vaginally as direc* ALBUTEROL SULFATE HFA 90 MCG/* Inhale as instructed. Problem List As Of Date 04/30/2018 Noted Resolved RUQ pain [R10.11] INVALID FOR* Anxiety and depression [F41.9, F32.9] INVALID FOR* Mood disorder (HCC) [F39] INVALID FOR* More... Prescriptions ordered this encounter Disp Refills Start End SERTRALINE 50 MG TABLET 30 t* 0 04/30/2018 Route: ORAL Sig: Take 1 tablet by mouth once daily. Medications Discontinued During This Encounter citalopram (CELEXA) 40 mg tablet 04/30/2018 Class: Historical Med Route: ORAL Sig: Take 40 mg by mouth once daily. Disc: Reason for discontinue is not on file. Encounter Status:Closed by JORGE ENCARNACION CNP on 04/30/18 PROGRESS Observed: 02/06/2018 Status: COMPLETED Source: [place] 11:39 AM [facility] REPOSITORY [facility] ID: [id number] Author: Jorge Encarnacion Service: (none) Author Type: Nurse Practitioner Type: Progress Notes Filed: 02/06/2018 1:08 PM Note Text: Chief Complaint Patient presents with: Anxiety HPI Parvin De Oliveira is a 22 year old female who presents here today for anxiety and depression. Symptoms include depressed mood, insomnia, fatigue, difficulty concentrating and hopelessness. Ongoing for at least 1 year. Was started on Celexa by [facility]CP [facility] October 2017, patient was then evaluated by where patient indicated she thinks she may be bipolar. At that time her Celexa dose was increased and Lamictal was added to her regimen in November 2017. Patient reports discontinuing both medications d/t ineffectiveness ~1 ago. Believes medication was making her moods worse and didn't feel like it was working. Missed counseling center appointment, needs to reschedule. Patient noted she gave to a son in August 2017 and started on medications in August 2017 for depression and anxiety. Discussed possible post- depression, patient then indicated she has been dealing with anxiety and depression for many years as well as ADD as a child. She had been on Adderall throughout primary and secondary education. Would like to possibly restart Adderall. JULI-7: 19 PHQ-9: 20 Mood Disorder Questionnaire: 05/16, circled moderate problem Current symptoms Mood: Elevated mood. Irritable mood and racing thoughts. Panic: Pt reports Palpitations and excessive crying Sleep: difficulty falling asleep Alcohol use: social Drug use: No Appetite: eating more Stresses: Major stressor: financial. 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 Medication history: Clexa and Lamictal Family mental health hx: anxiety and depression REVIEW OF SYSTEMS General: no fevers, no chills, no night sweats, no recurrent infections, no significant changes in weight and See HPI Respiratory: no cough, no wheezing, no shortness of breath, no hemoptysis Cardiovascular: no chest pain, no chest pressure, no palpitations and no swelling GI: No nausea, vomiting, or diarrhea Psych: See HPI Neurologic: No headache, weakness, numbness, tingling, neck stiffness, tremor, vertigo, dizziness, memory loss, syncope. PAST MEDICAL HISTORY Diagnosis Date - Anxiety and depression 12/09/2017 PAST SURGICAL HISTORY Procedure Laterality Date - PAST SURGICAL HISTORY OF cyst in jaw removed - REMOVAL OF TONSILS,<11 Y/O Tonsillectomy age 4 ALLERGIES Amoxicillin MEDICATIONS Etonogestrel-Ethinyl Estradiol (NUVARING) 0.12-0.015 mg/24 hr vaginal ring Use 1 Each vaginally as directed. INSERT ONE(1) RING VAGINALLY AND LEAVE IN PLACE FOR THREE WEEKS, THEN REMOVE FOR 1 WEEK. albuterol HFA (PROAIR HFA) 90 mcg/actuation inhaler Inhale as instructed. FAMILY HISTORY Problem Relation Age of Onset - Ovarian cancer Maternal Aunt two aunts w/ ovarian cancer - Other [OTHER] Mother BRCA 1 and 2 positive - Thyroid Maternal Grandmother - Psychiatry Maternal Grandmother anxiety and depression - Other [OTHER] Maternal Grandmother BRCA 1 AND 2 positive - Breast Cancer Maternal Aunt diagnosed at age 37 - Psychiatry Maternal Grandfather anxiety and depression Social History Substance Use Topics - Smoking status: Never Smoker - Smokeless tobacco: Never Used - Alcohol use No PHYSICAL EXAM BP 116/80 (BP Site: Left Arm, BP Position: Sitting, BP Cuff Size: Regular Adult) Pulse 64 Resp 16 Wt 98 kg (216 lb) LMP 01/29/2018 BMI 39.51 kg/m? Appearance: well dressed well groomed, cooperative and pleasant, preoccupied with cell phone during some of the conversation Behavior: good eye contact Speech: fluent and coherent Mood: appropriate Affect: constricted Perceptions: none Thought process: goal directed Thought Content: normal Intelligence level: normal Insight: fair Judgment: fair Lungs: Lungs clear to auscultation. No wheezing, rhonchi, rales Heart: RRR without murmur, gallop, or rubs. No ectopy ASSESSMENT/PLAN: 1. Mood disorder (HCC) - ICD9: 296.90, ICD10: F39 (primary diagnosis) - Achieved high scoring on PHQ9, GAD7 and Mood Questionnaire. Consider Bipolar vs PPD given more recent of her son - BUPROPION HCL 100 MG TABLET - Discussed concept of neurochemical imbalance wth depression/anxiety, treatment options and benefits of counseling in combination with medication - Option of Medication use discussed. Risks/benefits of antidepressants reviewed including common side effects. Start Wellbutrin. - Also reviewed benefits of sleep hygeine, diet and exercise - Follow-up in 4 weeks or sooner as needed - Instructed patient to contact office or [id number] after-hours promptly should condition worsen or any new symptoms appear. - Counseling Center [facility] and after hours crisis line - Patient to reschedule with counseling center, strongly recommend patient follow up with this 2. History of ADHD - ICD9: V11.8, ICD10: Z86.59 - Recommend patient follow up with counseling center - Reviewed with patient that I did not feel comfortable re- starting her on Adderall at this time given she is not currently in school or working regularly. Would like to focus on her anxiety and depression, possible bipolar disorder first. Patient verbalizes understanding and agrees with treatment plan at this time - BUPROPION HCL 100 MG TABLET - Follow up in 1 month, sooner for new or worsening symptoms Prescription instructions reviewed with patient as applicable. Potential red flag symptoms discussed with the patient. Reviewed appropriate action plan to take if red flag symptoms occur. Patient agreeable to treatment plan. Jorge Encarnacion APRN.CNP CNOV Observed: 02/06/2018 Status: COMPLETED Source: [place] 11:20 AM [facility] REPOSITORY Office Visit (INTMWS) PARVIN DE OLIVEIRA ([id number]) 1995 F Date Time Provider Department 02/06/18 11:20 AM JORGE ENCARNACION ([facility]) IN[facility] During your visit today, we recorded the following information about you: Pulse Respiration Blood pressure Weight 64/minute 16/minute 116/80 98 kg Jorge Encarnacion APRN.CNP 02/06/2018 1:08 PM Signed Chief Complaint Patient presents with: Anxiety HPI Parvinjuan De Oliveira is a 22 year old female who presents here today for anxiety and depression. Symptoms include depressed mood, insomnia, fatigue, difficulty concentrating and hopelessness. Ongoing for at least 1 year. Was started on Celexa by PCP in [place] October 2017, patient was then evaluated by where patient indicated she thinks she may be bipolar. At that time her Celexa dose was increased and Lamictal was added to her regimen in November 2017. Patient reports discontinuing both medications d/t ineffectiveness ~1 ago. Believes medication was making her moods worse and didn't feel like it was working. Missed counseling center appointment, needs to reschedule. Patient noted she gave to a son in August 2017 and started on medications in August 2017 for depression and anxiety. Discussed possible post- depression, patient then indicated she has been dealing with anxiety and depression for many years as well as ADD as a child. She had been on Adderall throughout primary and secondary education. Would like to possibly restart Adderall. JULI-7: 19 PHQ-9: 20 Mood Disorder Questionnaire: 05/16, circled moderate problem Current symptoms Mood: Elevated mood. Irritable mood and racing thoughts. Panic: Pt reports Palpitations and excessive crying Sleep: difficulty falling asleep Alcohol use: social Drug use: No Appetite: eating more Stresses: Major stressor: financial. 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 Medication history: Clexa and Lamictal [facility] mental health hx: anxiety and depression REVIEW OF SYSTEMS General: no fevers, no chills, no night sweats, no recurrent infections, no significant changes in weight and See HPI Respiratory: no cough, no wheezing, no shortness of breath, no hemoptysis Cardiovascular: no chest pain, no chest pressure, no palpitations and no swelling GI: No nausea, vomiting, or diarrhea Psych: See HPI Neurologic: No headache, weakness, numbness, tingling, neck stiffness, tremor, vertigo, dizziness, memory loss, syncope. PAST MEDICAL HISTORY Diagnosis Date - Anxiety and depression 12/09/2017 PAST SURGICAL HISTORY Procedure Laterality Date - PAST SURGICAL HISTORY OF cyst in jaw removed - REMOVAL OF TONSILS,<11 Y/O Tonsillectomy age 4 ALLERGIES Amoxicillin MEDICATIONS Etonogestrel-Ethinyl Estradiol (NUVARING) 0.12-0.015 mg/24 hr vaginal ring Use 1 Each vaginally as directed. INSERT ONE(1) RING VAGINALLY AND LEAVE IN PLACE FOR THREE WEEKS, THEN REMOVE FOR 1 WEEK. albuterol HFA (PROAIR HFA) 90 mcg/actuation inhaler Inhale as instructed. FAMILY HISTORY Problem Relation Age of Onset - Ovarian cancer Maternal Aunt two aunts w/ ovarian cancer - Other [OTHER] Mother BRCA 1 and 2 positive - Thyroid Maternal Grandmother - Psychiatry Maternal Grandmother anxiety and depression - Other [OTHER] Maternal Grandmother BRCA 1 AND 2 positive - Breast Cancer Maternal Aunt diagnosed at age 37 - Psychiatry Maternal Grandfather anxiety and depression Social History Substance Use Topics - Smoking status: Never Smoker - Smokeless tobacco: Never Used - Alcohol use No PHYSICAL EXAM BP 116/80 (BP Site: Left Arm, BP Position: Sitting, BP Cuff Size: Regular Adult) Pulse 64 Resp 16 Wt 98 kg (216 lb) LMP 01/29/2018 BMI 39.51 kg/m? Appearance: well dressed well groomed, cooperative and pleasant, preoccupied with cell phone during some of the conversation Behavior: good eye contact Speech: fluent and coherent Mood: appropriate Affect: constricted Perceptions: none Thought process: goal directed Thought Content: normal Intelligence level: normal Insight: fair Judgment: fair Lungs: Lungs clear to auscultation. No wheezing, rhonchi, rales Heart: RRR without murmur, gallop, or rubs. No ectopy ASSESSMENT/PLAN: 1. Mood disorder (HCC) - ICD9: 296.90, ICD10: F39 (primary diagnosis) - Achieved high scoring on PHQ9, GAD7 and Mood Questionnaire. Consider Bipolar vs PPD given more recent of her son - BUPROPION HCL 100 MG TABLET - Discussed concept of neurochemical imbalance wth depression/anxiety, treatment options and benefits of counseling in combination with medication - Option of Medication use discussed. Risks/benefits of antidepressants reviewed including common side effects. Start Wellbutrin. - Also reviewed benefits of sleep hygeine, diet and exercise - Follow-up in 4 weeks or sooner as needed - Instructed patient to contact office or [id number] after- hours promptly should condition worsen or any new symptoms appear. - [facility] and after hours crisis line - Patient to reschedule with counseling center, strongly recommend patient follow up with this 2. History of ADHD - ICD9: V11.8, ICD10: Z86.59 - Recommend patient follow up with counseling center - Reviewed with patient that I did not feel comfortable re- starting her on Adderall at this time given she is not currently in school or working regularly. Would like to focus on her anxiety and depression, possible bipolar disorder first. Patient verbalizes understanding and agrees with treatment plan at this time - BUPROPION HCL 100 MG TABLET - Follow up in 1 month, sooner for new or worsening symptoms Prescription instructions reviewed with patient as applicable. Potential red flag symptoms discussed with the patient. Reviewed appropriate action plan to take if red flag symptoms occur. Patient agreeable to treatment plan. VINICIUS Clancy APRN.CNP 02/06/2018 11:58 AM Signed Please start Wellbutrin with one pill daily for 1 week then you may increase to twice daily. Reschedule with counseling center [facility]. Referring Provider: SELF [[id number]] Allergies As of Date: 02/06/2018 Noted Allergy Reaction AMOXICILLIN 2 - Rash Date Reviewed: 02/06/2018 Reviewed by: Batool Ace LPN - Fully Assessed Reason for Visit: Anxiety [9] Primary Visit Diagnosis:Mood disorder (HCC) [F39] Other Visit Diagnosis:History of ADHD [Z86.59] Order(s):buPROPion (WELLBUTRIN) 100 mg tabletTake 1 tablet by mouth twice daily.Disp: 60 tabletRfl: 0 Prescriptions as of 02/06/2018 Sig: ETONOGESTREL-ETHINYL ESTRADIO* Use 1 Each vaginally as direc* ALBUTEROL SULFATE HFA 90 MCG/* Inhale as instructed. BUPROPION HCL 100 MG TABLET Take 1 tablet by mouth twice * Problem List As Of Date 02/06/2018 Noted Resolved RUQ pain [R10.11] INVALID FOR* Anxiety and depression [F41.9, F32.9] INVALID FOR* Mood disorder (HCC) [F39] INVALID FOR* More... Other instructions from your clinician: Please start Wellbutrin with one pill daily for 1 week then you may increase to twice daily. Reschedule with counseling center [facility]. Prescriptions ordered this encounter Disp Refills Start End BUPROPION HCL 100 MG TABLET 60 t* 0 02/06/2018 Route: ORAL Sig: Take 1 tablet by mouth twice daily. Disposition: Return in about 1 month (around 03/09/2018). Follow-up and Disposition History Recorded Encounter Status:Closed by JORGE ENCARNACION CNP on 02/06/18 PROGRESS Observed: 02/05/2018 Status: COMPLETED Source: [place] 8:48 AM [facility] O ID: [id number] Author: Dalila Dumont Service: (none) Author Type: Nurse Practitioner Type: Progress Notes Filed: 02/05/2018 12:03 PM Note Text: Parvin De Oliveira is a 22 year old, Obstetric History T0 L0 SAB0 TAB0 Ectopic0 Multiple0 Live Births1 who presents today for contraception. Patient's last menstrual period was 01/29/2018. PAST MEDICAL HISTORY Diagnosis Date - Anxiety and depression 12/09/2017 PAST SURGICAL HISTORY Procedure Laterality Date - PAST SURGICAL HISTORY OF cyst in jaw removed - REMOVAL OF TONSILS,<11 Y/O Tonsillectomy age 4 Social History Marital status: Single Spouse name: Years of education: Number of children: 1 Occupational History Occupation Employer Comment Unemployed/[employer]* Social History Main Topics Smoking status: Never Smoker Smokeless tobacco: Never Used Alcohol use: No Drug use: No Sexual activity: Yes Partners with: Male control/protection: Condom Social History Narrative Lives with mother and brother Pets 1 dog Works with [employer] No Known Allergies Current Outpatient Prescriptions on File Prior to Visit: citalopram (CELEXA) 40 mg tablet Take 1 tablet by mouth once daily. (Patient not taking: Reported on 02/05/2018 ) lamoTRIgine (LAMICTAL) 25 mg tablet One tab by mouth once a day for a week, then one twice a day for a week , then 2 twice a day. (Patient not taking: Reported on 02/05/2018 ) No current facility-administered medications on file prior to visit. 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 Patient currently interested in: unsure but does not want IUD or Nexplanon Date of last test: Not applicable Relevant Past Medical History: No relevant past medical history. Denies family history of clotting disorders. Denies personal history of DVT, CVD or migraine with aura. Non smoker. PHYSICAL EXAMINATION: BP 106/68 Ht 5' 2 (1.575 m) Wt 216 lb (98 kg) LMP 01/29/2018 BMI 39.51 kg/m? GENERAL APPEARANCE: Well appearing, alert, in no acute distress, well-hydrated, well nourished. SKIN: Skin color, texture, turgor normal, no suspicious rashes or lesions NECK: normal thyroid CHEST: Normal inspiratory effort ABDOMEN: Soft and Non-tender NEURO: Awake, alert and oriented x 3 ASSESSMENT/PLAN: 1. General counseling and advice for contraceptive management - ICD9: V25.09, ICD10: Z30.09 (primary diagnosis) Discussed contraceptive options with R/B/A - would like to trial the NuvaRing. 2. Encounter for initial management of nuvaring - ICD9: V25.02, ICD10: Z30.49 - Explained use in detail, pt was able to repeat instructions. Follow-up in one month at annual visit. Will assist in establishing care with a PCP - has not been taking medications for depression and anxiety. Dalila Dumont APRN.CICI CNOV Observed: 02/05/2018 Status: COMPLETED Source: [place] 8:45 AM [facility] REPOSITORY Office Visit ([facility]OOB) PARVIN DE OLIVEIRA ([id number]) 1995 F Date Time Provider Department 02/05/18 8:45 AM DALILA DUMONT ([facility]) [facility] During your visit today, we recorded the following information about you: Blood pressure Weight Height Last Period 106/68 98 kg 1.575 m 01/29/18 Dalila Dumont APRN.CNP 02/05/2018 12:03 PM Signed Parvin De Oliveira is a 22 year old, Obstetric History T0 L0 SAB0 TAB0 Ectopic0 Multiple0 Live Births1 who presents today for contraception. Patient's last menstrual period was 01/29/2018. PAST MEDICAL HISTORY Diagnosis Date - Anxiety and depression 12/09/2017 PAST SURGICAL HISTORY Procedure Laterality Date - PAST SURGICAL HISTORY OF cyst in jaw removed - REMOVAL OF TONSILS,<11 Y/O Tonsillectomy age 4 Social History Marital status: Single Spouse name: Years of education: Number of children: 1 Occupational History Occupation Employer Comment Unemployed/[employer]* Social History Main Topics Smoking status: Never Smoker Smokeless tobacco: Never Used Alcohol use: No Drug use: No Sexual activity: Yes Partners with: Male control/protection: Condom Social History Narrative Lives with mother and brother Pets 1 dog Works with [employer] No Known Allergies Current Outpatient Prescriptions on File Prior to Visit: citalopram (CELEXA) 40 mg tablet Take 1 tablet by mouth once daily. (Patient not taking: Reported on 02/05/2018 ) lamoTRIgine (LAMICTAL) 25 mg tablet One tab by mouth once a day for a week, then one twice a day for a week , then 2 twice a day. (Patient not taking: Reported on 02/05/2018 ) No current facility-administered medications on file prior to visit. 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 Patient currently interested in: unsure but does not want IUD or Nexplanon Date of last test: Not applicable Relevant Past Medical History: No relevant past medical history. Denies family history of clotting disorders. Denies personal history of DVT, CVD or migraine with aura. Non smoker. PHYSICAL EXAMINATION: BP 106/68 Ht 5' 2 (1.575 m) Wt 216 lb (98 kg) LMP 01/29/2018 BMI 39.51 kg/m? GENERAL APPEARANCE: Well appearing, alert, in no acute distress, well-hydrated, well nourished. SKIN: Skin color, texture, turgor normal, no suspicious rashes or lesions NECK: normal thyroid CHEST: Normal inspiratory effort ABDOMEN: Soft and Non-tender NEURO: Awake, alert and oriented x 3 ASSESSMENT/PLAN: 1. General counseling and advice for contraceptive management - ICD9: V25.09, ICD10: Z30.09 (primary diagnosis) Discussed contraceptive options with R/B/A - would like to trial the NuvaRing. 2. Encounter for initial management of nuvaring - ICD9: V25.02, ICD10: Z30.49 - Explained use in detail, pt was able to repeat instructions. Follow-up in one month at annual visit. Will assist in establishing care with a PCP - has not been taking medications for depression and anxiety. VINICIUS Condon APRN.CNP 02/05/2018 9:12 AM Signed Nuvaring - either leave in place for 3 weeks then out for 1 week and have normal period. OR remove and insert new ring on same day every month. Referring Provider: SELF [[id number]] Allergies As of Date: 02/05/2018 Noted Allergy Reaction AMOXICILLIN 2 - Rash Date Reviewed: 02/05/2018 Reviewed by: Dalila Dumont - Fully Assessed Reason for Visit: New Patient [172] Cmt: B/C Options Primary Visit Diagnosis:General counseling and advice for contraceptive management [Z30.09] Other Visit Diagnosis:Encounter for initial management of nuvaring [Z30.49] Order(s):Etonogestrel-Ethinyl Estradiol (NUVARING) 0.12-0.015 mg/24 hr vaginal ringUse 1 Each vaginally as directed. INSERT ONE(1) RING VAGINALLY AND LEAVE IN PLACE FOR THREE WEEKS, THEN REMOVE FOR 1 WEEK.Disp: 3 EachRfl: 3 Prescriptions as of 02/05/2018 Sig: ALBUTEROL SULFATE HFA 90 MCG/* Inhale as instructed. ETONOGESTREL-ETHINYL ESTRADIO* Use 1 Each vaginally as direc* Problem List As Of Date 02/05/2018 Noted Resolved RUQ pain [R10.11] INVALID FOR* Anxiety and depression [F41.9, F32.9] INVALID FOR* Mood disorder (HCC) [F39] INVALID FOR* More... Other instructions from your clinician: Nuvaring - either leave in place for 3 weeks then out for 1 week and have normal period. OR remove and insert new ring on same day every month. Prescriptions ordered this encounter Disp Refills Start End ETONOGESTREL-ETHINYL ESTRADIOL 0.12 * 3 Ea* 3 02/05/2018 Class: Print RX Route: VAGINAL Sig: Use 1 Each vaginally as directed. INSERT ONE(1) RING VAGINALLY AND LEAVE IN PLACE FOR THREE WEEKS, THEN REMOVE FOR 1 WEEK. Medications Discontinued During This Encounter lamoTRIgine (LAMICTAL) 25 mg tablet 120 * 1 12/09/2017 02/05/2018 Sig: One tab by mouth once a day for a week, then one twice a day for a week , then 2 twice a day. Patient not taking: Reported on 02/05/2018 Disc: Reason for discontinue is not on file. citalopram (CELEXA) 40 mg tablet 30 t* 1 12/09/2017 02/05/2018 Route: ORAL Sig: Take 1 tablet by mouth once daily. Patient not taking: Reported on 02/05/2018 Disc: Reason for discontinue is not on file. Encounter Status:Closed by DALILA DUMONT on 02/05/18 FREE T4 Collected: 12/09/2017 Status: F Source: [place] 11:55 AM [facility] REPOSITORY TYPE CODE TESTS RESULT OUT OF RANGE REFERENCE UNITS LAB FT4 0.9-1.7 ng/dL Free T4 0.9 Performed By: #### FT4, TSH #### [facility] [employer] [address] [place], [place] [id number] TSH Collected: 12/09/2017 Status: F Source: [place] 11:55 AM [facility] REPOSITORY TYPE CODE TESTS RESULT OUT OF RANGE REFERENCE UNITS LAB TSH 0.400-5.500 uU/mL TSH 4.230 Result Comment: If the patient is , TSH reference range varies by gestational period: First Trimester 0.100-2.500 uU/mL Second Trimester 0.200-3.000 uU/mL Third Trimester 0.300-3.000 uU/mL References: 1. Duque L, Benita M, Dionicio EK, et al. Management of Thyroid Dysfunction during and : An Endocrine Society Clinical Practice Guideline. J Clin Endocrinol Metab, 2012:97:8503-2308. 2. Rosendo SORIANO. Overview of thyroid disease in . UpToDate. 2016. Accessed on December 16, 2015. Performed By: #### FT4, TSH #### [facility] [employer] [address] [place], [place] [address] PROGRESS Observed: 12/09/2017 Status: COMPLETED Source: [place] 11:15 AM [facility] REPOSIT[facility] HNO ID: [id number] Author: Michael Rod Service: (none) Author Type: Physician Type: Progress Notes Filed: 12/09/2017 1:22 PM Note Text: Chief Complaint Patient presents with: Refill Request HPI Parvin De Oliveira is a 22 year old female who presents here today for Above Complaints.. Patient switching from PCP in [facility] to [facility]. Will be establishing with Dr. Nettles in December. Was started on Celexa at 20 mg a day in october 2017 and then increased to 40 mg a day in the middle to end of October. Has not really noted any significant change. Patient feels may be bipolar. Has rapid mood swings but will also have periods of excess energy. During this time will have impulsive actions. No thoughts of self harm or hurting others. Past medical history, appointments, medications, allergies reviewed. Previous Medical History PAST MEDICAL HISTORY Diagnosis Date - NEGATIVE MEDICAL HISTORY Previous Surgical History PAST SURGICAL HISTORY Procedure Laterality Date - PAST SURGICAL HISTORY OF cyst in jaw removed - REMOVAL OF TONSILS,<11 Y/O Tonsillectomy age 4 Family History FAMILY HISTORY Problem Relation Age of Onset - Ovarian cancer Maternal Aunt two aunts w/ ovarian cancer - Other [Other] [OTHER] Mother BRCA 1 and 2 positive - Other [Other] [OTHER] Maternal Grandmother BRCA 1 AND 2 positive - Breast Cancer Maternal Aunt diagnosed at age 37 Patient Allergies ALLERGIES No Known Allergies Current Medications No current outpatient prescriptions on file prior to visit. No current facility-administered medications on file prior to visit. Social History Social History Marital status: Single Spouse name: Years of education: Number of children: Social History Main Topics Smoking status: Never Smoker Smokeless tobacco: Never Used Alcohol use: No Drug use: No Sexual activity: Yes Partners with: Male control/protection: None Social History Narrative Lives with mother and brother Pets 1 dog Works with [employer] Review of Symptoms REVIEW OF SYSTEMS See HPI EXAM: BP 114/82 Pulse 96 Resp 16 Ht 157.5 cm (5' 2) Wt 96.6 kg (213 lb) BMI 38.96 kg/m? General Appearance: Well appearing, alert, in no acute distress, well-hydrated, well nourished.. Neck: Supple, no adenopathy; thyroid symmetric, normal size, no bruits. Abdomen: Normal abdominal exam, Abdomen soft, non-tender. Bowel sounds normal. No masses, organomegaly. Health Maintenance List HPV VACCINE(1 of 3 - Female 3 Dose Series) due on 2005 DTAP,TDAP,TD(1 - Tdap) due on 2013 GC (GONORRHEA) SCREENING (18-24) due on 02/01/2015 CHLAMYDIA SCREENING (18-24) due on 02/01/2015 PAP EVERY 3 YEARS (21-30 YEAR OLDS) due on 10/22/2015 INFLUENZA(Season Ended) due on 03/01/2018 Data reviewed A/P ASSESSMENT/PLAN: 1. Anxiety and depression - ICD9: 300.00, 311, ICD10: F41.9, F32.9 (primary diagnosis) - CONSULT TO PSYCHIATRY: [facility] - TSH BLD - T4 FREE/FREE THYROX Continue the celexa at 40 mg a day and add on lamictal. 2. Mood disorder (HCC) - ICD9: 296.90, ICD10: F39 - CONSULT TO PSYCHIATRY - as above Signed Prescriptions Disp Refills citalopram (CELEXA) 40 mg tablet 30 tablet 1 Sig: Take 1 tablet by mouth once daily. lamoTRIgine (LAMICTAL) 25 mg tablet 120 tablet 1 Sig: One tab by mouth once a day for a week, then one twice a day for a week , then 2 twice a day. Keep f/u to establish with Dr. Nettles 01/10/2018 Michael Rod MD CNOV Observed: 12/09/2017 Status: COMPLETED Source: [place] 11:00 AM [facility] REPOSITORY Office Visit (FAMPWS) PARVIN DE OLIVEIRA ([id number]) 1995 F Date Time Provider Department 12/09/17 11:00 AM [facility] During your visit today, we recorded the following information about you: Pulse Respiration Blood pressure Weight 96/minute 16/minute 114/82 96.6 kg Height 1.575 m Justoivory Rameyalvaro Arana 12/09/2017 1:22 PM Signed Feeling nervous, anxious, or on edge 3 Nearly every day Not being able to stop or control worrying 3 Nearly every day Worrying too much about different things 3 Nearly every day Trouble relaxing 3 Nearly every day Being so restless that it's hard to sit still 3 Nearly every day Being easily annoyed or irritable 3 Nearly every day Feeling afraid as if something awful might happen 3 Nearly every day JULI-7 Anxiety Score 21 If you checked off any problems, how difficult have these problems made it for you to do your work, take care of things at home, or get along with other people? Very difficult Michael Rod MD 12/09/2017 1:22 PM Signed Chief Complaint Patient presents with: Refill Request HPI Parvin De Oliveira is a 22 year old female who presents here today for Above Complaints.. Patient switching from PCP in [facility] to [facility]. Will be establishing with Dr. Nettles in December. Was started on Celexa at 20 mg a day in october 2017 and then increased to 40 mg a day in the middle to end of October. Has not really noted any significant change. Patient feels may be bipolar. Has rapid mood swings but will also have periods of excess energy. During this time will have impulsive actions. No thoughts of self harm or hurting others. Past medical history, appointments, medications, allergies reviewed. Previous Medical History PAST MEDICAL HISTORY Diagnosis Date - NEGATIVE MEDICAL HISTORY Previous Surgical History PAST SURGICAL HISTORY Procedure Laterality Date - PAST SURGICAL HISTORY OF cyst in jaw removed - REMOVAL OF TONSILS,<11 Y/O Tonsillectomy age 4 Family History FAMILY HISTORY Problem Relation Age of Onset - Ovarian cancer Maternal Aunt two aunts w/ ovarian cancer - Other [Other] [OTHER] Mother BRCA 1 and 2 positive - Other [Other] [OTHER] Maternal Grandmother BRCA 1 AND 2 positive - Breast Cancer Maternal Aunt diagnosed at age 37 Patient Allergies ALLERGIES No Known Allergies Current Medications No current outpatient prescriptions on file prior to visit. No current facility-administered medications on file prior to visit. Social History Social History Marital status: Single Spouse name: Years of education: Number of children: Social History Main Topics Smoking status: Never Smoker Smokeless tobacco: Never Used Alcohol use: No Drug use: No Sexual activity: Yes Partners with: Male control/protection: None Social History Narrative Lives with mother and brother Pets 1 dog Works with [employer] Review of Symptoms REVIEW OF SYSTEMS See HPI EXAM: BP 114/82 Pulse 96 Resp 16 Ht 157.5 cm (5' 2) Wt 96.6 kg (213 lb) BMI 38.96 kg/m? General Appearance: Well appearing, alert, in no acute distress, well-hydrated, well nourished.. Neck: Supple, no adenopathy; thyroid symmetric, normal size, no bruits. Abdomen: Normal abdominal exam, Abdomen soft, non-tender. Bowel sounds normal. No masses, organomegaly. Health Maintenance List HPV VACCINE(1 of 3 - Female 3 Dose Series) due on 2005 DTAP,TDAP,TD(1 - Tdap) due on 2013 GC (GONORRHEA) SCREENING (18-24) due on 02/01/2015 CHLAMYDIA SCREENING (18-24) due on 02/01/2015 PAP EVERY 3 YEARS (21-30 YEAR OLDS) due on 10/22/2015 INFLUENZA(Season Ended) due on 03/01/2018 Data reviewed A/P ASSESSMENT/PLAN: 1. Anxiety and depression - ICD9: 300.00, 311, ICD10: F41.9, F32.9 (primary diagnosis) - CONSULT TO PSYCHIATRY: [facility] - TSH BLD - T4 FREE/FREE THYROX Continue the celexa at 40 mg a day and add on lamictal. 2. Mood disorder (HCC) - ICD9: 296.90, ICD10: F39 - CONSULT TO PSYCHIATRY - as above Signed Prescriptions Disp Refills citalopram (CELEXA) 40 mg tablet 30 tablet 1 Sig: Take 1 tablet by mouth once daily. lamoTRIgine (LAMICTAL) 25 mg tablet 120 tablet 1 Sig: One tab by mouth once a day for a week, then one twice a day for a week , then 2 twice a day. Keep f/u to establish with Dr. Nettles 01/10/2018 Michael Rod MD Referring Provider: SELF [200] Allergies As of Date: 12/09/2017 (No Known Allergies) Date Reviewed: 12/09/2017 Reviewed by: Michael Rod - Fully Assessed Reason for Visit: Refill Request [94] Primary Visit Diagnosis:Anxiety and depression [F41.9, F32.9] Other Visit Diagnosis:Mood disorder (HCC) [F39] Comment:possibly bipolar Order(s):citalopram (CELEXA) 40 mg tabletTake 1 tablet by mouth once daily.Disp: 30 tabletRfl: 1 lamoTRIgine (LAMICTAL) 25 mg tabletOne tab by mouth once a day for a week, then one twice a day for a week , then 2 twice a day.Disp: 120 tabletRfl: 1 CONSULT TO PSYCHIATRY [2586] Order #: [id number]: 1 TSH BLD [SQTSH] Order #: [id number] FUTURE T4 FREE/FREE THYROX [SQFT4] Order #: [id number] FUTURE Prescriptions as of 12/09/2017 Sig: CITALOPRAM 40 MG TABLET Take 1 tablet by mouth once d* LAMOTRIGINE 25 MG TABLET One tab by mouth once a day f* Problem List As Of Date 12/09/2017 Noted Resolved RUQ pain [R10.11] INVALID FOR* Anxiety and depression [F41.9, F32.9] INVALID FOR* Mood disorder (HCC) [F39] INVALID FOR* More... Prescriptions ordered this encounter Disp Refills Start End CITALOPRAM 40 MG TABLET 30 t* 1 12/09/2017 Route: ORAL Sig: Take 1 tablet by mouth once daily. LAMOTRIGINE 25 MG TABLET 120 * 1 12/09/2017 Sig: One tab by mouth once a day for a week, then one twice a day for a week , then 2 twice a day. Medications Discontinued During This Encounter medroxyPROGESTERone (PROVERA, CYCRIN* 12/09/2017 Class: Historical Med Route: ORAL Sig: Take 10 mg by mouth once daily. Disc: Reason for discontinue is not on file. ondansetron orally disintegrating (Z* 10 t* 0 12/03/2016 12/09/2017 Route: ORAL Sig: Take 1 tablet by mouth every 6 hours as needed for Nausea/Vomiting. Disc: Reason for discontinue is not on file. Disposition: Return if symptoms worsen or fail to improve. Follow-up and Disposition History Recorded Questionnaire: JULI-7 ANXIETY SCALE Feeling nervous, anxious, or on edge -> 3 Nearly every day Not being able to stop or control worrying -> 3 Nearly every day Worrying too much about different things -> 3 Nearly every day Trouble relaxing -> 3 Nearly every day Being so restless that it's hard to sit still -> 3 Nearly every day Being easily annoyed or irritable -> 3 Nearly every day Feeling afraid as if something awful might happen -> 3 Nearly every day JULI-7 Anxiety Score -> 21 If you checked off any problems, how difficult have these problems made it for you to do your work, take care of things at home, or get along with other people? -> Very difficult Encounter Status:Closed by MICHAEL ROD on 12/09/17 PROGRESS Observed: 12/09/2017 Status: COMPLETED Source: [place] 10:50 AM [facility] REPOSITORY HNO ID: [id number] Author: Justo García Ma Service: (none) Author Type: (none) Type: Progress Notes Filed: 12/09/2017 1:22 PM Note Text: Feeling nervous, anxious, or on edge 3 Nearly every day Not being able to stop or control worrying 3 Nearly every day Worrying too much about different things 3 Nearly every day Trouble relaxing 3 Nearly every day Being so restless that it's hard to sit still 3 Nearly every day Being easily annoyed or irritable 3 Nearly every day Feeling afraid as if something awful might happen 3 Nearly every day JULI-7 Anxiety Score 21 If you checked off any problems, how difficult have these problems made it for you to do your work, take care of things at home, or get along with other people? Very difficult OPERATIVE REPORT Observed: 10/04/2017 Status: F Source: [place] 9:40 AM [facility] REPOSITORY [facility] Medical Records Department [address] [place] [address] Operative Report 09/24/17 1403 MR#: [id number] Acct: [id number] Name: PARVIN DE OLIVEIRA Rep #: [id number] : 1995 21 From: Jose Campbell MD PCP: Care Physician, No Primary Status: DEP [facility] Y Location: [facility] Problem List (1) Cholelithiasis Status: Acute Qualifiers: Cholelithiasis location: gallbladder Cholecystitis presence: without cholecystitis Biliary obstruction: without biliary obstruction Qualified Code(s): K80.20 - Calculus of gallbladder without cholecystitis without obstruction (2) Right upper quadrant pain Status: Acute Report of Operation Date of Procedure: 09/24/17 Pre-Operative Diagnosis: k80.20 calculus of the gallbladder without cholecystitis without obstruction. r10.11 right upper quadrant abdominal pain Post-Operative Diagnosis: Same Surgery/Procedure Performed:: 93306 laparoscopic cholecystectomy Type of Anesthesia:: General Anesthesiologist: Thad Colon Description of Procedure: Patient was brought into the operating room. Placed in the supine position. Under excellent endotracheal intubation the abdomen was sterilely prepped and draped in the usual fashion. Local was injected infraumbilically. Incision was made and dissection was carried down to the fascia. The fascia was grasped with a Tahir. Varies needle was placed inside the abdomen. The abdomen was insufflated to 15 torr. A 10/12 trocar was placed without difficulty. Patient was placed in the head up and rotated to the left position. A subxiphoid #5 trocar was placed, inferior to this another #5 trocar was placed, and finally laterally a #5 trocar was placed. All these under direct visualization without injury to underlying structures. I grab the fundus of the gallbladder and retracted in cephalad direction. I dissected out the cystic duct the cystic artery and dissected all the way back to the base of the liver. Once I had dissected everything free and's identified both the common bile duct and the other structures I placed 2 hemoclips cystic duct and ligated in between. I placed 2 hemoclips proximally and distally on the artery and ligated in between. I deliver the gallbladder from the gallbladder bed with use of electrocautery. Placed a specimen specimen bag and delivered through the umbilical port without difficulty. In my dissection I did have a small spillage of bile but no spillage of stones. I reinflated the abdomen irrigated out all of the bile. I inspected the liver there was a small tear on the right side of the liver but it was not actively bleeding. I did not use electrocautery on it. The liver bed itself had excellent hemostasis. I removed all the trochars under direct visualization. Good hemostasis was noted. I closed the fascia the umbilical port with a figure 8 stitch of 0 Vicryl. Skin incisions were closed with subcuticular stitches of 4-0 Monocryl. Steri-Strips are applied sterile dressings were applied and the patient tolerated the procedure well. - Admit VTE Documentation VTE Present on Admission: No VTE Mechan Device Prophylaxis: SCD's VTE Pharm Prophylaxis ordered?: No Reason prophylaxis not ordered:: Treatment Not Indicated 10/04/17 0940 <Electronically signed by Jose Campbell MD> Date Jose Campbell MD CC: No Primary Care Physician; Jose Campbell MD Signed 12 LEAD ELECTROCARDIOGRAM Observed: 09/26/2017 Status: F Source: [place] 4:03 PM [facility] REPOSITORY [facility] Cardiovascular Services [address] [place] [address] 12 Lead EKG 09/24/17 1206 MR#: [id number] Acct: [id number] Name: PARVIN DE OLIVEIRA Rep #: [id number] : 1995 21 From: Davidson Yi MD Attending Dr: Jose Campbell MD Status: DEP [facility] Ordering Dr: Douglas Gray MD Date: 09/24/17 Location: [facility] Sex: F C Admitted: Test Reason : PRE OP Blood Pressure : / mmHG Vent. Rate : 082 BPM Atrial Rate : 082 BPM P-R Int : 136 ms QRS Dur : 086 ms QT Int : 402 ms P-R-T Axes : 019 029 026 degrees QTc Int : 469 ms Normal sinus rhythm with sinus arrhythmia Normal ECG When compared with ECG of 04-OCT-2013 07:39, QT has lengthened Confirmed by DAVIDSON YI MD ([id number]), advertising editor YOVANI MCBRIDE ([id number]) on 09/26/2017 4:03:11 PM Referred By: Jose Campbell Confirmed By:DAVIDSON YI MD 09/26/17 1603 Date Davidson Yi MD CC: No Primary Care Physician; Jose Campbell MD; Douglas Gray MD Signed DISCHARGE INSTRUCTION Observed: 09/24/2017 Status: F Source: [place] 2:06 PM [facility] REPOSITORY [facility] Medical Records Department [address] [place] [address] Instructions for Home/Discharge Instructions 09/24/17 1405 MR#: [id number] Acct: [id number] Name: PARVIN DE OLIVEIRA Rep #: [id number] : 1995 21 From: Jose Campbell MD PCP: Care Physician, No Primary Status: REG [facility] Discharge Diet: Light diet - advance as tolerated Discharge Activity: May Not Drive - for 2-3 days or while taking narcotic pain medications., - - Do not drive, work heavy equipment or sign legal documents for 24 hours. May shower in (days): 1 - with the bandage in place. Additional Activity Instructions:: Pain medication may cause nausea. You should typically eat light foods as you take your pain medications. Pain medication may also cause constipation. If this is a problem for you, please discuss with your doctor. Call your doctor if your incision/area has: Continuous Slow Oozing, Sudden Increased Bleeding, Increased Pain/ Swelling, Increased Redness, Foul Smelling Discharge Call your doctor if you observe: Fever of 101 or Higher Suture Line Care: Avoid Pulling/Pushing, Avoid Pinching/Bending Additional Dressing/Incision Instructions:: Leave operative bandaids on for 2 days. When you remove dressing, leave Steri-Strips on until your follow-up appointment, or until the Steri-Strips fall off on their own. Allergies/Adverse Reactions: Allergies No Known Allergies Allergy (Verified 09/19/17 09:14) Medications to take at Discharge Albuterol Inhaler [Ventolin Hfa (SP)] 1 - 2 puff INHALATION Q4H PRN PRN 09/19/17 Primary Care Physician: Care Physician,No Primary [Primary Care Provider] - Please Follow Up With: Jose Campbell MD - Please call [phone] to schedule an appointment. When: 7 days after your surgery. 09/24/17 1406 <Electronically signed by Jose Campbell MD> Date Jose Campbell MD CC: No Primary Care Physician GALLBLADDER Observed: 09/24/2017 Status: F Source: [place] 2:05 PM [facility] REPOSITORY Patient: PARVIN DE OLIVEIRA : 1995 (21/) Acct Num: [id number] Phys: Shannan LEHMAN,Jose Unit Num: [id number] Loc: [facility] Specimen: [id number] Received: 09/24/17 1524 Spec Type: GALLBLADDE TISSUES TISSUES: Gallbladder, NOS GROSS DESCRIPTION Received is one container labeled with the patient's name and designated gallbladder. The specimen consists of a gallbladder measuring 6.5 x 2 x 2 cm. The external surface is smooth and glistening. Focally, it is granular, hemorrhagic and contains cautery artifact. The lumen of the gallbladder contains greenish mucoid bile and three crystalline yellow- green calculi averaging 4 cm each. The gallbladder mucosa is bile-stained and without any mass lesions. The gallbladder wall averages 0.2 cm in thickness and is free of mass lesions. Flour Mixer sections of the gallbladder and the cystic duct are submitted in one cassette. / AM:navjot 09/25/17 TC:3 CPT: 47777 HEADER OPERATION: Laparoscopic cholecystectomy PRE-OP DIAGNOSIS: Calculus of gallbladder without cholecystitis without obstruction: right upper quadrant pain TISSUE SUBMITTED: Gallbladder MICROSCOPIC DESCRIPTION Slides are reviewed. MICROSCOPIC DIAGNOSIS Gallbladder, cholecystectomy: Cholesterolosis, chronic cholecystitis and cholelithiasis. AM:navjot 09/26/17 Signed [facility] 09/26/17 <signature on file> Performed By: #### PGALL #### [facility] [place], [address] ,URINE Collected: 09/24/2017 Status: F Source: [place] 12:00 PM [facility] REPOSITORY TYPE CODE TESTS RESULT OUT OF REFERENCE UNITS RANGE LAB L400.8000 Negative Normal HCGUQUAL Negative Result Comment: Very dilute urine specimens, as indicated by a low specific gravity, may not contain billing representative levels of hCG. If is still suspected, a first morning urine specimen should be collected 48 hours later and tested. Performed By: #### L400.7600 #### [facility] [address] [place], [address] EMERGENCY DEPARTMENT Observed: 09/14/2017 Status: F Source: [place] SUMMARY 1:52 AM [facility] REPOSITORY [facility] Medical Records Department [address] [place] [address] Emergency Department Summary 09/14/17 0148 MR#: [id number] Acct: [id number] Name: PARVIN DE OLIVEIRA Rep #: [id number] : 1995 21 From: Nat Bobby DO PCP: Care Physician, No Primary Status: REG ER - ER Visit Summary Date of Service: 09/14/17 Chief Complaint: [Vaginal bleeding] History of Present Illness: The patient is a 21 F presents the emergency department with vaginal bleeding that started about 6 weeks ago. Patient delivered a child via on August 06 and has not stopped bleeding since. Patient states that over the last 2-3 days she has had an increase in the amount of bleeding and she is passing some clots. Patient denies any abdominal pain. Patient denies any fever. Patient called her [employer] and the nurse instructed her to come to the ER to be evaluated. Patient denies feeling lightheaded or dizzy with standing. [Patient is .] Physical Examination: HEENT-PERRLA, EOMI. Cranial nerves II through XII grossly intact. TMs clear. Mucous membranes moist. No adenopathy. Cardiovascular-regular rate and rhythm without murmur or ectopy Lungs-clear to auscultation, chest wall stable without crepitus or subcu emphysema Abdomen-normoactive bowel sounds, soft, nontender, no rebound or rigidity, no peritoneal signs. exam-patient has blood and clot from the cervical loss noted. Minimal oozing noted. No cervical motion tenderness. Uterus is normal size and nontender. No masses palpated in the adnexa. Extremities-intact 4, normal range of motion, normal pulses, atraumatic[] Test Results: [CBC with differential obtained showed a white blood cell count of 8.3, hemoglobin 9.1, hematocrit 31, platelets 325. HCG was negative. Orthostatics were negative. Patient's last hemoglobin on July 26 of this year was 8.0.] Emergency Department Course and Treatment: [I discussed case with Dr. Anglin who was covering for Dr. Villarreal he recommended no further treatment at this time and wanted patient to follow-up with Dr. Villarreal in the office.] Treatment Plan: [Follow-up with her [employer] within the next 2-3 days. Patient to return if persistent heavy bleeding, lightheaded, pale, or condition should worsen in any way.] Disposition: [Discharged to home in stable condition.] Impression: [Dysfunctional uterine bleeding] This note was generated with BitDefenderation software. It may contain incorrect words, spelling, and punctuation that were not noted in review of the chart prior to signing ED Disposition - Plan for ED Patient: Chief Complaint: Vag Bleeding Referrals: Care Physician,No Primary [Primary Care Provider] - What to do if you have Problems For any increased pain, shortness of breath, bleeding, nausea or vomiting, chest pain, or any unexpected problems, contact your Primary Care Provider. Call [facility] ([phone]) or report to the closest Emergency Room. Call 911 if necessary. 09/14/17151 <Electronically signed by Nat Bobby DO> Date Nat Bobby DO Cosigner Signature (If Indicated): Date CC: No Primary Care Physician DISCHARGE INSTRUCTION Observed: 09/14/2017 Status: F Source: [place] 1:52 AM [facility] REPOSITORY [facility] Medical Records Department [address] [place] [address] Discharge Instruction 09/14/17151 MR#: [id number] Acct: [id number] Name: PARVIN DE OLIVEIRA Rep #: [id number] : 1995 21 From: Nat Bobby DO PCP: Care Physician, No Primary Status: REG ER ED Disposition - Plan for ED Patient: Chief Complaint: Vag Bleeding Instructions: ED Bleed Irregular Vaginal Referrals: Care Physician,No Primary [Primary Care Provider] - Beata Villarreal MD [STAFF PHYSICIAN] - 3-5 Days What to do if you have Problems For any increased pain, shortness of breath, bleeding, nausea or vomiting, chest pain, or any unexpected problems, contact your Primary Care Provider. Call [facility] ([phone]) or report to the closest Emergency Room. Call 911 if necessary. 09/14/17 0152 <Electronically signed by Nat Bobby DO> Date Nat Bobby DO Cosigner Signature (If Indicated): Date CC: No Primary Care Physician CBC W/DIFF, AUTOMATED Collected: 09/14/2017 Status: F Source: [place] 12:35 AM [facility] REPOSITORY TYPE CODE TESTS RESULT OUT OF RANGE REFERENCE UNITS LAB L100.1000 4.4-11.0 K/mm3 Normal WBC 8.3 LAB L100.1200 4.2-5.4 M/mm3 Normal RBC 4.47 LAB L100.1300 12.0-15.0 g/dl Low HGB 9.1 LAB L100.1400 37-47 % Low HCT 31.4 LAB L100.1500 81-99 fL Low MCV 70.2 LAB L100.1600 27.0-32.0 pg Low MCH 20.4 LAB L100.1700 32-36 g/gl Low MCHC 29.0 LAB L100.1810 11.6-14.6 % High RDW CV 17.8 LAB L100.1820 35.1-43.9 fl High RDW SD 45.4 LAB L100.1900 150-450 K/mm3 Normal PLT 325 LAB L100.2000 6.2-12.0 fl Normal MPV 9.7 LAB L100.2100 47-70 % Normal NEUT% 67.6 LAB L100.2200 19-41 % Normal LY% 25.3 LAB L100.2300 0-10 % Normal MONO% 4.5 LAB L100.2400 0-5 % Normal EO% 2.3 LAB L100.2500 0-1 % Normal BASO% 0.2 LAB L100.2550 0.0-0.9 % Normal IM GRAN % 0.100 Result Comment: IG% - Immature Granulocytes (promyelocytes, myelocytes and metamyelocytes) > 1% indicates that a LEFT SHIFT is Present. LAB L100.2620 2.0-7.7 X10 3/uL Normal Absolute Neut 5.6 LAB L100.2720 0.83-4.51 X10 3/ul Normal Absolute Lymph 2.09 LAB L100.4500 Normal SMEAR COMMENT SCANNED Result Comment: AUTO DIFF OK Performed By: #### L100.0100 #### [facility] [address] [facility]. [place], [place], [address] ,SERUM,HCG QUALI. Collected: Status: F Source: [place] 09/14/2017 12:35 AM [facility] REPOSITORY TYPE CODE TESTS RESULT OUT OF REFERENCE UNITS RANGE LAB L700.7000 0-9 Nonpreg Negative Normal HCGSQUAL NEGATIVE LAB L700.6700 =>Qualitative mIU/mL Normal HCG Qual < 1 triggr Performed By: #### L700.6800 #### [facility] [address] [facility]. [place], [place], [address] TYPE AND SCREEN Collected: 09/14/2017 Status: F Source: MERC[facility] 12:35 AM [facility] REPOSITORY Order Comment: Reason for Type AND Screen/Red Cells: HEMORRHAGE, VAGINAL TYPE CODE TESTS RESULT OUT OF RANGE REFERENCE UNITS LAB B10.0800 B Normal BLOOD TYPE GEL POSITIVE LAB B100.4000 Normal Antibody NEGATIVE Screen Performed By: #### B101.7450 #### [facility] [address] [facility]. [place], [place], [address] SURGERY VISIT REPORT Observed: 09/12/2017 Status: F Source: MERCER 3:30 PM [facility] REPOSITORY [facility] [address] [place] [address] OFFICE VISIT Date of Service: 09/12/17 MR#: [id number] Acct: [id number] Name: PARVIN DE OLIVEIRA Rep #: [id number] : 1995 Provider: Maritza Jamison PA-C Age/Sex: 21/F Location: [facility] Status: Signed Intake Vital Signs09/12/17 Height 5 ft 2 in 09/12/17 Weight: 212 lb Intake Visit Reasons: to update h AND p for gallbladder/DP Plumbing Service Technician Required: No Is patient in pain?: Yes (RUQ/ Epigastric) Pain scale (1-10): 2 Allergies No Known Allergies Allergy (Verified 09/12/17 09:44) Medications Vit No.130/Iron/FA [ Vitamins] 1 ea PO DAILY 05/20/17 [History Confirmed 09/12/17] omeprazole magnesium 20 mg tablet,delayed release 20 mg PO DAILY 06/20/17 [History Confirmed 09/12/17] Acetaminophen [Tylenol] 325 mg PO BID PRN 06/30/17 [History Confirmed 09/12/17] TraMADol PO Q8H PRN PRN 07/11/17 [History Confirmed 09/12/17] Ferrous Gluconate 325 mg PO BIDCM 07/18/17 [History Confirmed 09/12/17] glyBURIDE [Micronase] 2.5 mg PO BIDCM 07/18/17 [History Confirmed 09/12/17] PFSH Medical History Cholelithiasis (Acute) Asthma (Acute) Surgical History History of (Acute) History of tonsillectomy (Acute) Family History Aunt Breast cancer Grandfather Diabetes Grandmother Diabetes Social History Smoking Status: Never smoker alcohol intake: never substance use type: does not use HPI HPI HPI: PARVIN DE OLIVEIRA, is a 21 F I am following for right upper quadrant pain/discomfort and cholelithiasis. Patient presents for an update history and physical. Patient notes she delivered a boy on 08/06/17 via at [facility]. She denies complications with delivery. Patient notes she was sent to [facility] secondary to pre- eclampsia. Patient denies recent gallbladder attack. Patient denies previous cardiac history. She denies previous complications with anesthesia. Patient's previous history per Dr. Campbell: PARVIN DE OLIVEIRA, is a 21 F who presents to the office today for presents to my office for evaluation of cholelithiasis. Patient had a gallbladder ultrasound done at [facility] on 06/05/2017. This showed the gallbladder to have multiple gallstones located within it, bile duct was 5.5 mm there was no pericholecystic fluid in the gallbladder wall thickness was 2.6 mm. Patient has been experiencing some epigastric abdominal discomfort but has resolved slightly with decrease in her diet as well as fatty foods. ROS General General: No weight change, appetite, fatigue, colon cancer, breast cancer or weakness HEENT HEENT: No difficulty swallowing, eye injury, eye surgery, swollen glands or hoarseness Endo Endocrine: No thyroid disease, diabetes mellitus, thyroid cancer, Hair loss, heat intolerance or cold intolerance Skin Skin: No rash or changing moles Musc Musculoskeletal: No back problems, arthritis, rheumatoid arthritis, gout or joint pain Cardio Cardiovascular: No murmur, pacemaker, heart disease, atrial fibrillation, high blood pressure, heart attack, heart stent, palpitations, shortness of breat with exertion or chest pain Psych Psychiatric: No depression, anxiety or hearing voices Resp Respiratory: Yes shortness of breath, No sleep apnea, No cough, No COPD, Yes asthma, No emphysema, No wheezing Gastro Gastrointestinal: No abdominal pain, Yes nausea or vomiting, No diarrhea, No constipation, No blood in stool, Yes acid reflux, No hemorrhoids, No ulcers, Yes gallbladder problem, No black,tarry stools Almas Hematologic: No blood thinners, No blood disorders, No bleeding, No anemia, No blood clots Neuro Neurologic: No system reviewed and no additional complaints, except as docu, No as per HPI, No abnormal walking, No abnormal hearing, No abnormal movements, No abnormal speech, No behavioral changes, No burning sensations, No confusion, No seizure-like activity, No unsteadiness, No dizziness, No localized weakness, No frequent falls, No headache(s), No lack of coordination, No loss of vision, No memory loss, No numbness, No other visual disturbances, No radiating pain, No restless legs, No sensory deficit, No fainting, No tingling, No tremor(s), No weakness, No other Exam Const General: cooperative, healthy appearing, comfortable, no acute distress HENMT Head: normal to inspection Eyes General: appearance normal, both eyes and all related structures Neck Neck mass: No Resp Effort AND Inspection: normal respiratory effort Auscultation: clear to auscultation bilaterally Cardio Rate: regular rate Rhythm: regular rhythm Heart Sounds: no murmurs GI Inspection: normal to inspection, large pannus, obesity, incision (low incision nicely healing.) Palpation: soft, nontender Auscultation: normal bowel sounds Skin General: no rashes or lesions noted Neuro General: no focal motor deficits Extrem General: normal to inspection Psych Appearance: grossly normal Affect: normal affect Assessment AND Plan Problems 1. Calculus of gallbladder without cholecystitis without obstruction K80.20 2. Right upper quadrant pain R10.11 Plan - Dr. Campbell will plan to perform a laparoscopic cholecystectomy. Procedure details, risks and benefits have been explained to the patient. Patient has had the opportunity to ask and have questions answered. Patient verbally understands and agrees with the plan. Coding Level of Care Code Off vis,est,level 3 Diagnoses Calculus of gallbladder without cholecystitis without obstruction K80.20 Cholelithiasis location: gallbladder Cholecystitis presence: without cholecystitis Biliary obstruction: without biliary obstruction Right upper quadrant pain R10.11 09/12/17 1530 <Electronically signed by Maritza Jamison PA-C> Date Maritza Jamison PA-C Cosigner Signature: Date (if applicable) CC: GLUCOSE,BEDSIDE Collected: 08/09/2017 Status: F Source: [employer] 6:21 AM SYSTEM REPOSITORY TYPE CODE TESTS RESULT OUT OF RANGE REFERENCE UNITS LAB BGLU 70-100 mg/dL High 104 Glucose,Beds elpidio Result Comment: Test performed by glucose meter. Results may be 10%-15% lower than serum/plasma values. (CLIA ID [id number]) Performed By: #### BGLU #### [facility] [address] [place] [address] GLUCOSE,BEDSIDE Collected: 08/07/2017 Status: F Source: [employer] 9:36 PM SYSTEM REPOSITORY TYPE CODE TESTS RESULT OUT OF RANGE REFERENCE UNITS LAB BGLU 70-100 mg/dL High 116 Glucose,Beds elpidio Result Comment: Test performed by glucose meter. Results may be 10%-15% lower than serum/plasma values. (CLIA ID [id number]) Performed By: #### BGLU #### [facility] [address] [place] [address] GLUCOSE,BEDSIDE Collected: 08/07/2017 Status: F Source: [employer] 5:43 PM SYSTEM REPOSITORY TYPE CODE TESTS RESULT OUT OF RANGE REFERENCE UNITS LAB BGLU 70-100 mg/dL High 119 Glucose,Beds elpidio Result Comment: Test performed by glucose meter. Results may be 10%-15% lower than serum/plasma values. (CLIA ID [id number]) Performed By: #### BGLU #### [facility] [address] [place] [address] MFM-US Observed: 08/07/2017 Status: F Source: [employer] 12:54 PM SYSTEM REPOSITORY PATIENT: PARVIN DE OLIVEIRA DATE: 08/05/2017 MR #: [id number] : 1995 AGE: 22 Electronically Authenticated Ivon Wilder, 12/16/2017 11:07 A REFERRING PHYSICIAN: Dr. Isbell INDICATIONS: ULTRASONOGRAPHIC FINDINGS: There is a ziegler fetus in cephalic presentation. heart motion is present at 161 beats per minute. movement is normal. Amniotic fluid is polyhydramnios with a deepest vertical pocket of 8.19 cm. Total SANTOS measures 21.7 cm. Placenta is posterior. Right ovary is not well visualized. Left ovary appears normal. anatomy is limited by maternal body habitus and gestational age. However, no gross anatomical defects were noted. biometry; BPD 8.91 cm at 36 weeks and 0 days. Head circumference 31.34 cm at 35 weeks 1 day. Abdominal circumference 33.64 cm greater than the 99th percentile at 37 weeks and 4 days. Femur length 6.3 cm at 32 weeks 4 days. Tibula 5.31 cm at 31 weeks and 3 days. Fibula 5.11 cm at 31 weeks and 1 day. Humeral length at 5.38 cm at 31 weeks and 1 day. Lateral ventricle 5.79 mm 31 weeks 2 days. Estimated weight 2802 g 6 pounds 3 ounces which is at the 94.3 percentile for gestational age. INTERPRETATION: See inpatient chart. Ultrasound is not diagnostic of chromosomal aneuploidy and does not detect all subtle defects. Normal ultrasound findings do not guarantee a normal outcome. [email or web address] Job ID: [id number] Ivon Wilder DO DOD:08/07/2017 12:54 P KBW/oscar DOT:08/08/2017 04:22 A cc: Louann Babin DO [address] [place] [address] [address] [facility] [address] Ivon Wilder DO [facility] [address] [facility] [id number] [facility] [address] GLUCOSE,BEDSIDE Collected: 08/07/2017 Status: F Source: [employer] 12:38 PM SYSTEM REPOSITORY TYPE CODE TESTS RESULT OUT OF RANGE REFERENCE UNITS LAB BGLU 70-100 mg/dL High 139 Glucose,Beds elpidio Result Comment: Test performed by glucose meter. Results may be 10%-15% lower than serum/plasma values. (CLIA ID [id number]) Performed By: #### BGLU #### [address] [address] CR CHEST PORTABLE Observed: 08/07/2017 Status: F Source: [employer] 10:38 AM SYSTEM REPOSITORY Patient Name: PARVIN DE OLIVEIRA Diagnostic Radiology Exam Date/Time 08/07/2017 09:01:15 EST Exam CR Chest Portable Ordering Physician MD CALLAWAY LAUREN MARIE Accession Number [id number] CPT4 Codes 08425 () Reason For Exam SOB Report PORTABLE CHEST CLINICAL INDICATION: Shortness of breath TECHNIQUE: Portable AP COMPARISON: None FINDINGS: No focal consolidation or pulmonary edema. No pleural effusions or pneumothorax. The cardiac and mediastinal silhouettes are normal. The osseous structures are unremarkable. IMPRESSION: No focal consolidation or pulmonary edema. Report Dictated on Final Dictated: 08/07/2017 10:38 am Dictating Physician: MD SPIVEY KEVIN Signed Date and Time: 08/07/2017 10:38 am Signed by: MD SPIVEY KEVIN Transcribed Date and Time: 08/07/2017 10:38 MAGNESIUM Collected: 08/07/2017 Status: F Source: [employer] 8:20 AM SYSTEM REPOSITORY TYPE CODE TESTS RESULT OUT OF REFERENCE UNITS RANGE LAB MG3 1.6-2.3 mg/dL High Alert Magnesium 7.8 Result Comment: Repeated Performed By: #### MG3 #### [facility] [address] [place] [address] GLUCOSE,BEDSIDE Collected: 08/07/2017 Status: F Source: [employer] 7:01 AM SYSTEM REPOSITORY TYPE CODE TESTS RESULT OUT OF RANGE REFERENCE UNITS LAB BGLU 70-100 mg/dL High 179 Glucose,Beds elpidio Result Comment: Test performed by glucose meter. Results may be 10%-15% lower than serum/plasma values. (CLIA ID [id number]) Performed By: #### BGLU #### [facility] [address] [place] [address] HEMOGLOBIN Collected: 08/07/2017 Status: F Source: [employer] 5:37 AM SYSTEM REPOSITORY TYPE CODE TESTS RESULT OUT OF REFERENCE UNITS RANGE LAB HGB 11.7-16.0 g/dL Low Hemoglobin 7.7 Performed By: #### HEMGB #### [facility] [address] [place] [address] GLUCOSE,BEDSIDE Collected: 08/06/2017 Status: F Source: [employer] 9:46 PM SYSTEM REPOSITORY TYPE CODE TESTS RESULT OUT OF RANGE REFERENCE UNITS LAB BGLU 70-100 mg/dL High 178 Glucose,Beds elpidio Result Comment: Test performed by glucose meter. Results may be 10%-15% lower than serum/plasma values. (CLIA ID [id number]) Performed By: #### BGLU #### [facility] [address] [place] [address] GLUCOSE,BEDSIDE Collected: 08/06/2017 Status: F Source: [employer] 7:22 PM SYSTEM REPOSITORY TYPE CODE TESTS RESULT OUT OF RANGE REFERENCE UNITS LAB BGLU 70-100 mg/dL High 104 Glucose,Beds elpidio Result Comment: Test performed by glucose meter. Results may be 10%-15% lower than serum/plasma values. (CLIA ID [id number]) Performed By: #### BGLU #### [facility] [address] [place] [address] PLATELET COUNT Collected: 08/06/2017 Status: F Source: [employer] 6:25 PM SYSTEM REPOSITORY TYPE CODE TESTS RESULT OUT OF RANGE REFERENCE UNITS LAB PLT 140-440 10*3/uL Normal Platelet 278 Performed By: #### PLTCT #### [facility] [address] [place] [address] GLUCOSE,BEDSIDE Collected: 08/06/2017 Status: F Source: [employer] 4:37 PM SYSTEM REPOSITORY TYPE CODE TESTS RESULT OUT OF RANGE REFERENCE UNITS LAB BGLU 70-100 mg/dL Normal 100 Glucose,Beds elpidio Result Comment: Test performed by glucose meter. Results may be 10%-15% lower than serum/plasma values. (CLIA ID [id number]) Performed By: #### BGLU #### [address] [place] [address] GLUCOSE,BEDSIDE Collected: 08/06/2017 Status: F Source: [employer] 3:10 PM SYSTEM REPOSITORY TYPE CODE TESTS RESULT OUT OF RANGE REFERENCE UNITS LAB BGLU 70-100 mg/dL Normal 99 Glucose,Beds elpidio Result Comment: Test performed by glucose meter. Results may be 10%-15% lower than serum/plasma values. (CLIA ID [id number]) Performed By: #### BGLU #### [address] [place] [address] GLUCOSE,BEDSIDE Collected: 08/06/2017 Status: F Source: [employer] 2:17 PM SYSTEM REPOSITORY TYPE CODE TESTS RESULT OUT OF RANGE REFERENCE UNITS LAB BGLU 70-100 mg/dL High 102 Glucose,Beds elpidio Result Comment: Test performed by glucose meter. Results may be 10%-15% lower than serum/plasma values. (CLIA ID [id number]) Performed By: #### BGLU #### [address] [place] [address] GLUCOSE,BEDSIDE Collected: 08/06/2017 Status: F Source: [employer] 12:48 PM SYSTEM REPOSITORY TYPE CODE TESTS RESULT OUT OF RANGE REFERENCE UNITS LAB BGLU 70-100 mg/dL High 101 Glucose,Beds elpidio Result Comment: Test performed by glucose meter. Results may be 10%-15% lower than serum/plasma values. (CLIA ID [id number]) Performed By: #### BGLU #### [facility] [address] [place] [address] GLUCOSE,BEDSIDE Collected: 08/06/2017 Status: F Source: [employer] 11:11 AM SYSTEM REPOSITORY TYPE CODE TESTS RESULT OUT OF RANGE REFERENCE UNITS LAB BGLU 70-100 mg/dL Normal 98 Glucose,Beds elpidio Result Comment: Test performed by glucose meter. Results may be 10%-15% lower than serum/plasma values. (CLIA ID [id number]) Performed By: #### BGLU #### [address] [place] [address] GLUCOSE,BEDSIDE Collected: 08/06/2017 Status: F Source: [employer] 10:21 AM SYSTEM REPOSITORY TYPE CODE TESTS RESULT OUT OF RANGE REFERENCE UNITS LAB BGLU 70-100 mg/dL Normal 97 Glucose,Beds elpidio Result Comment: Test performed by glucose meter. Results may be 10%-15% lower than serum/plasma values. (CLIA ID [id number]) Performed By: #### BGLU #### [address] [place] [address] GLUCOSE,BEDSIDE Collected: 08/06/2017 Status: F Source: [employer] 9:17 AM SYSTEM REPOSITORY TYPE CODE TESTS RESULT OUT OF RANGE REFERENCE UNITS LAB BGLU 70-100 mg/dL Normal 94 Glucose,Beds elpidio Result Comment: Test performed by glucose meter. Results may be 10%-15% lower than serum/plasma values. (CLIA ID [id number]) Performed By: #### BGLU #### [address] [place] [address] GLUCOSE,BEDSIDE Collected: 08/06/2017 Status: F Source: [employer] 8:23 AM SYSTEM REPOSITORY TYPE CODE TESTS RESULT OUT OF RANGE REFERENCE UNITS LAB BGLU 70-100 mg/dL Normal 98 Glucose,Beds elpidio Result Comment: Test performed by glucose meter. Results may be 10%-15% lower than serum/plasma values. (CLIA ID [id number]) Performed By: #### BGLU #### [address] [place] [address] GLUCOSE,BEDSIDE Collected: 08/06/2017 Status: F Source: [employer] 7:06 AM SYSTEM REPOSITORY TYPE CODE TESTS RESULT OUT OF RANGE REFERENCE UNITS LAB BGLU 70-100 mg/dL Normal 95 Glucose,Beds elpidio Result Comment: Test performed by glucose meter. Results may be 10%-15% lower than serum/plasma values. (CLIA ID [id number]) Performed By: #### BGLU #### [address] [place] [address] HEMOGRAM Collected: 08/06/2017 Status: F Source: [employer] 6:56 AM SYSTEM REPOSITORY TYPE CODE TESTS RESULT OUT OF RANGE REFERENCE UNITS LAB IWBC 3.6-10.7 10*3/uL High WBC 19.7 LAB RBC 3.80-5.20 10*6/uL RBC Normal 3.90 LAB HGB 11.7-16.0 g/dL Low Hemoglobin 8.1 LAB HCT 35.0-47.0 % Low Hematocrit 26.6 LAB MCV 79.0-98.0 fL Low MCV 68.3 LAB MCH 26.0-34.0 pg Low MCH 20.9 LAB MCHC 32.0-36.0 % Low MCHC 30.6 LAB RDW 11.5-14.5 % High RDW 17.5 LAB PLT 140-440 10*3/uL Platelet Normal 332 LAB MPV 7.4-10.4 fL MPV Normal 8.5 Performed By: #### HEMOG, MG3 #### [address] [place] [address] MAGNESIUM Collected: 08/06/2017 Status: F Source: [employer] 6:56 AM SYSTEM REPOSITORY TYPE CODE TESTS RESULT OUT OF REFERENCE UNITS RANGE LAB MG3 1.6-2.3 mg/dL High Alert Magnesium 5.5 Result Comment: repeated Performed By: #### HEMOG, MG3 #### [address] [place] [address] GLUCOSE,BEDSIDE Collected: 08/06/2017 Status: F Source: [employer] 6:06 AM SYSTEM REPOSITORY TYPE CODE TESTS RESULT OUT OF RANGE REFERENCE UNITS LAB BGLU 70-100 mg/dL Normal 97 Glucose,Beds elpidio Result Comment: Test performed by glucose meter. Results may be 10%-15% lower than serum/plasma values. (CLIA ID [id number]) Performed By: #### BGLU #### [facility] [address] [place] [address] GLUCOSE,BEDSIDE Collected: 08/06/2017 Status: F Source: [employer] 4:12 AM SYSTEM REPOSITORY TYPE CODE TESTS RESULT OUT OF RANGE REFERENCE UNITS LAB BGLU 70-100 mg/dL High 103 Glucose,Beds elpidio Result Comment: Test performed by glucose meter. Results may be 10%-15% lower than serum/plasma values. (CLIA ID [id number]) Performed By: #### BGLU #### [address] [place] [address] GLUCOSE,BEDSIDE Collected: 08/06/2017 Status: F Source: [employer] 2:50 AM SYSTEM REPOSITORY TYPE CODE TESTS RESULT OUT OF RANGE REFERENCE UNITS LAB BGLU 70-100 mg/dL Normal 98 Glucose,Beds elpidio Result Comment: Test performed by glucose meter. Results may be 10%-15% lower than serum/plasma values. (CLIA ID [id number]) Performed By: #### BGLU #### [address] [place] [address] PLATELET COUNT Collected: 08/06/2017 Status: F Source: [employer] 2:09 AM SYSTEM REPOSITORY TYPE CODE TESTS RESULT OUT OF RANGE REFERENCE UNITS LAB PLT 140-440 10*3/uL Normal Platelet 311 Performed By: #### PLTCT #### [address] [place] [address] MAGNESIUM Collected: 08/06/2017 Status: F Source: [employer] 2:09 AM SYSTEM REPOSITORY TYPE CODE TESTS RESULT OUT OF REFERENCE UNITS RANGE LAB MG3 1.6-2.3 mg/dL High Magnesium 4.2 Performed By: #### MG3 #### [address] [place] [address] GLUCOSE,BEDSIDE Collected: 08/06/2017 Status: F Source: [employer] 2:04 AM SYSTEM REPOSITORY TYPE CODE TESTS RESULT OUT OF RANGE REFERENCE UNITS LAB BGLU 70-100 mg/dL Normal 97 Glucose,Beds elpidio Result Comment: Test performed by glucose meter. Results may be 10%-15% lower than serum/plasma values. (CLIA ID [id number]) Performed By: #### BGLU #### [address] [place] [address] GLUCOSE,BEDSIDE Collected: 08/06/2017 Status: F Source: [employer] 1:04 AM SYSTEM REPOSITORY TYPE CODE TESTS RESULT OUT OF RANGE REFERENCE UNITS LAB BGLU 70-100 mg/dL Normal 93 Glucose,Beds elpidio Result Comment: Test performed by glucose meter. Results may be 10%-15% lower than serum/plasma values. (CLIA ID [id number]) Performed By: #### BGLU #### [address] [place] [address] GLUCOSE,BEDSIDE Collected: 08/06/2017 Status: F Source: [employer] 12:00 AM SYSTEM REPOSITORY TYPE CODE TESTS RESULT OUT OF RANGE REFERENCE UNITS LAB BGLU 70-100 mg/dL Normal 96 Glucose,Beds elpidio Result Comment: Test performed by glucose meter. Results may be 10%-15% lower than serum/plasma values. (CLIA ID [id number]) Performed By: #### BGLU #### [address] [place] [address] GLUCOSE,BEDSIDE Collected: 08/05/2017 Status: F Source: [employer] 10:44 PM SYSTEM REPOSITORY TYPE CODE TESTS RESULT OUT OF RANGE REFERENCE UNITS LAB BGLU 70-100 mg/dL Normal 99 Glucose,Beds elpidio Result Comment: Test performed by glucose meter. Results may be 10%-15% lower than serum/plasma values. (CLIA ID [id number]) Performed By: #### BGLU #### [address] [place] [address] GLUCOSE,BEDSIDE Collected: 08/05/2017 Status: F Source: [employer] 9:53 PM SYSTEM REPOSITORY TYPE CODE TESTS RESULT OUT OF RANGE REFERENCE UNITS LAB BGLU 70-100 mg/dL Normal 96 Glucose,Beds elpidio Result Comment: Test performed by glucose meter. Results may be 10%-15% lower than serum/plasma values. (CLIA ID [id number]) Performed By: #### BGLU #### [facility] [address] [place] [address] GLUCOSE,BEDSIDE Collected: 08/05/2017 Status: F Source: [employer] 8:40 PM SYSTEM REPOSITORY TYPE CODE TESTS RESULT OUT OF RANGE REFERENCE UNITS LAB BGLU 70-100 mg/dL High 102 Glucose,Beds elpidio Result Comment: Test performed by glucose meter. Results may be 10%-15% lower than serum/plasma values. (CLIA ID [id number]) Performed By: #### BGLU #### [facility] [address] [place] [address] Observed: 08/05/2017 Status: F Source: [employer] TS GEL 3:17 PM SYSTEM REPOSITORY PATIENT: ERYN MELENDREZ LOC: 2NI,126,201 BILL# : [id number] : 1995 SEX: F AGE: 21 ORDERED BY: SANAZ Jules ORDERED : 08/05/2017 14:36 COLLECTED: 08/05/2017 15:17 ORDER : [id number] RECEIVED : 08/05/2017 15:29 TEST NAME RESULT UNITS RANGES ABN FL ST ABO Group B F Rh, Gel POS F Antibody Screen Gel NEG F Performed By: #### TSGL #### [address] [place] [address] HEMOGRAM Collected: 08/05/2017 Status: F Source: [employer] 3:17 PM SYSTEM REPOSITORY TYPE CODE TESTS RESULT OUT OF REFERENCE UNITS RANGE LAB IWBC 3.6-10.7 10*3/uL WBC High 17.8 LAB RBC 3.80-5.20 10*6/uL Low RBC 3.58 LAB HGB 11.7-16.0 g/dL Low Hemoglobin 7.5 LAB HCT 35.0-47.0 % Low Hematocrit 24.3 LAB MCV 79.0-98.0 fL Low MCV 67.7 Result Comment: CHECKED PREVIOUS REPEATED LAB MCH 26.0-34.0 pg Low MCH 21.0 LAB MCHC 32.0-36.0 % Low MCHC 30.9 LAB RDW 11.5-14.5 % High RDW 17.3 LAB PLT 140-440 10*3/uL Normal Platelet 327 LAB MPV 7.4-10.4 fL Normal MPV 8.5 Performed By: #### HEMOG, CMP3 #### [address] [place] [address] COMP METABOLIC PANEL Collected: 08/05/2017 Status: F Source: [employer] 3:17 PM SYSTEM REPOSITORY TYPE CODE TESTS RESULT OUT OF RANGE REFERENCE UNITS LAB NA3 137-145 mmol/L Low Sodium 135 LAB K3 3.5-5.1 mmol/L Normal Potassium 3.8 LAB CL3 98-107 mmol/L High Chloride 108 LAB CO23 22-30 mmol/L Low Carbon Dioxide 17 LAB ANIN3 Anion Normal Gap 9 LAB GLUC3 70-100 mg/dL High Glucose 126 LAB BUN3 7-20 mg/dL Urea Normal Nitrogen 19 LAB CRET3 0.52-1.25 mg/dL Normal Creatinine 1.05 LAB GF3BR >60 mL/min eGFR Normal >60.0 LAB GF3WR >60 mL/min eGFR Normal OTHER >60.0 Result Comment: Source- MDRD equation with creatinine calibration to IDMS(NKDEP) eGFR not recommended for drug dose adjustment LAB CA3 8.4-10.2 mg/dL Calcium Normal 9.2 LAB ALB3 3.5-5.0 g/dL Low Albumin, Serum 3.1 LAB TP3 6.3-8.2 g/dL Total Protein Normal 6.5 LAB BILT3 0.2-1.3 mg/dL Normal Bilirubin,Total 0.2 LAB ALKP3 38-126 U/L High Alkaline Phosphatase 157 LAB ALT3 13-69 U/L ALT (SGPT) Normal 17 LAB AST3 15-46 U/L AST (SGOT) Normal 26 Performed By: #### HEMOG, CMP3 #### [facility] [address] [place] [address] GLUCOSE,BEDSIDE Collected: 08/05/2017 Status: F Source: [employer] 3:01 PM SYSTEM REPOSITORY TYPE CODE TESTS RESULT OUT OF RANGE REFERENCE UNITS LAB BGLU 70-100 mg/dL High 138 Glucose,Beds elpidio Result Comment: Test performed by glucose meter. Results may be 10%-15% lower than serum/plasma values. (CLIA ID [id number]) Performed By: #### BGLU #### [facility] [address] [place] [address] GLUCOSE,BEDSIDE Collected: 08/05/2017 Status: F Source: [employer] 10:06 AM SYSTEM REPOSITORY TYPE CODE TESTS RESULT OUT OF RANGE REFERENCE UNITS LAB BGLU 70-100 mg/dL High 145 Glucose,Beds elpidio Result Comment: Test performed by glucose meter. Results may be 10%-15% lower than serum/plasma values. (CLIA ID [id number]) Performed By: #### BGLU #### [address] [place] [address] GLUCOSE,BEDSIDE Collected: 08/05/2017 Status: F Source: [employer] 8:41 AM SYSTEM REPOSITORY TYPE CODE TESTS RESULT OUT OF RANGE REFERENCE UNITS LAB BGLU 70-100 mg/dL High 118 Glucose,Beds elpidio Result Comment: Test performed by glucose meter. Results may be 10%-15% lower than serum/plasma values. (CLIA ID [id number]) Performed By: #### BGLU #### [facility] [address] [place] [address] GLUCOSE,BEDSIDE Collected: 08/04/2017 Status: F Source: [employer] 5:56 PM SYSTEM REPOSITORY TYPE CODE TESTS RESULT OUT OF RANGE REFERENCE UNITS LAB BGLU 70-100 mg/dL High 232 Glucose,Beds elpidio Result Comment: Test performed by glucose meter. Results may be 10%-15% lower than serum/plasma values. (CLIA ID [id number]) Performed By: #### BGLU #### [facility] [address] [place] [address] GLUCOSE,BEDSIDE Collected: 08/04/2017 Status: F Source: [employer] 2:09 PM SYSTEM REPOSITORY TYPE CODE TESTS RESULT OUT OF RANGE REFERENCE UNITS LAB BGLU 70-100 mg/dL High 210 Glucose,Beds elpidio Result Comment: Test performed by glucose meter. Results may be 10%-15% lower than serum/plasma values. (CLIA ID [id number]) Performed By: #### BGLU #### [address] [place] [address] GLUCOSE,BEDSIDE Collected: 08/04/2017 Status: F Source: [employer] 10:35 AM SYSTEM REPOSITORY TYPE CODE TESTS RESULT OUT OF RANGE REFERENCE UNITS LAB BGLU 70-100 mg/dL High 202 Glucose,Beds elpidio Result Comment: Test performed by glucose meter. Results may be 10%-15% lower than serum/plasma values. (CLIA ID [id number]) Performed By: #### BGLU #### [address] [place] [address] MAGNESIUM Collected: 08/04/2017 Status: F Source: [employer] 10:32 AM SYSTEM REPOSITORY TYPE CODE TESTS RESULT OUT OF REFERENCE UNITS RANGE LAB MG3 1.6-2.3 mg/dL High Alert Magnesium 6.0 Result Comment: Repeated Performed By: #### MG3, FERR3 #### [address] [place] [address] FERRITIN Collected: 08/04/2017 Status: F Source: [employer] 10:32 AM SYSTEM REPOSITORY TYPE CODE TESTS RESULT OUT OF RANGE REFERENCE UNITS LAB 3FERR 8-252 ng/mL Normal Ferritin 10 Performed By: #### MG3, FERR3 #### [address] [place] [address] GLUCOSE,BEDSIDE Collected: 08/04/2017 Status: F Source: [employer] 7:39 AM SYSTEM REPOSITORY TYPE CODE TESTS RESULT OUT OF RANGE REFERENCE UNITS LAB BGLU 70-100 mg/dL High 110 Glucose,Beds elpidio Result Comment: Test performed by glucose meter. Results may be 10%-15% lower than serum/plasma values. (CLIA ID [id number]) Performed By: #### BGLU #### [address] [place] [address] GLUCOSE,BEDSIDE Collected: 08/03/2017 Status: F Source: [employer] 6:00 PM SYSTEM REPOSITORY TYPE CODE TESTS RESULT OUT OF RANGE REFERENCE UNITS LAB BGLU 70-100 mg/dL High 181 Glucose,Beds elpidio Result Comment: Test performed by glucose meter. Results may be 10%-15% lower than serum/plasma values. (CLIA ID [id number]) Performed By: #### BGLU #### [address] [place] [address] GLUCOSE,BEDSIDE Collected: 08/03/2017 Status: F Source: [employer] 3:02 PM SYSTEM REPOSITORY TYPE CODE TESTS RESULT OUT OF RANGE REFERENCE UNITS LAB BGLU 70-100 mg/dL High 170 Glucose,Beds elpidio Result Comment: Test performed by glucose meter. Results may be 10%-15% lower than serum/plasma values. (CLIA ID [id number]) Performed By: #### BGLU #### [address] [place] [address] HEMOGRAM Collected: 08/03/2017 Status: F Source: [employer] 10:16 AM SYSTEM REPOSITORY TYPE CODE TESTS RESULT OUT OF RANGE REFERENCE UNITS LAB IWBC 3.6-10.7 10*3/uL High WBC 11.1 LAB RBC 3.80-5.20 10*6/uL Low RBC 3.48 LAB HGB 11.7-16.0 g/dL Low Hemoglobin 7.3 LAB HCT 35.0-47.0 % Low Hematocrit 23.3 LAB MCV 79.0-98.0 fL Low MCV 66.9 LAB MCH 26.0-34.0 pg Low MCH 21.1 LAB MCHC 32.0-36.0 % Low MCHC 31.6 LAB RDW 11.5-14.5 % High RDW 16.7 LAB PLT 140-440 10*3/uL Platelet Normal 223 LAB MPV 7.4-10.4 fL MPV Normal 8.2 Performed By: #### HEMOG, CMP3 #### [address] [place] [address] COMP METABOLIC PANEL Collected: 08/03/2017 Status: F Source: [employer] 10:16 AM SYSTEM REPOSITORY TYPE CODE TESTS RESULT OUT OF RANGE REFERENCE UNITS LAB NA3 137-145 mmol/L Low Sodium 135 LAB K3 3.5-5.1 mmol/L Normal Potassium 3.9 LAB CL3 98-107 mmol/L High Chloride 108 LAB CO23 22-30 mmol/L Low Carbon Dioxide 19 LAB ANIN3 Anion Normal Gap 8 LAB GLUC3 70-100 mg/dL High Glucose 124 LAB BUN3 7-20 mg/dL Urea Normal Nitrogen 13 LAB CRET3 0.52-1.25 mg/dL Normal Creatinine 0.68 LAB GF3BR >60 mL/min eGFR Normal >60.0 LAB GF3WR >60 mL/min eGFR Normal OTHER >60.0 Result Comment: Source- MDRD equation with creatinine calibration to IDMS(NKDEP) eGFR not recommended for drug dose adjustment LAB CA3 8.4-10.2 mg/dL Calcium Normal 9.1 LAB ALB3 3.5-5.0 g/dL Low Albumin, Serum 2.9 LAB TP3 6.3-8.2 g/dL Low Total Protein 6.2 LAB BILT3 0.2-1.3 mg/dL Normal Bilirubin,Total 0.2 LAB ALKP3 38-126 U/L High Alkaline Phosphatase 144 LAB ALT3 13-69 U/L ALT (SGPT) Normal 17 LAB AST3 15-46 U/L AST (SGOT) Normal 16 Performed By: #### HEMOG, CMP3 #### [address] [address] GLUCOSE,BEDSIDE Collected: 08/03/2017 Status: F Source: [employer] 10:10 AM SYSTEM REPOSITORY TYPE CODE TESTS RESULT OUT OF RANGE REFERENCE UNITS LAB BGLU 70-100 mg/dL High 136 Glucose,Beds elpidio Result Comment: Test performed by glucose meter. Results may be 10%-15% lower than serum/plasma values. (CLIA ID [id number]) Performed By: #### BGLU #### [address] [place] [address] GLUCOSE,BEDSIDE Collected: 08/03/2017 Status: F Source: [employer] 6:25 AM SYSTEM REPOSITORY TYPE CODE TESTS RESULT OUT OF RANGE REFERENCE UNITS LAB BGLU 70-100 mg/dL High 101 Glucose,Beds elpidio Result Comment: Test performed by glucose meter. Results may be 10%-15% lower than serum/plasma values. (CLIA ID [id number]) Performed By: #### BGLU #### [facility] [address] [place] [id number] GLUCOSE,BEDSIDE Collected: 08/02/2017 Status: F Source: [employer] 9:16 PM SYSTEM REPOSITORY TYPE CODE TESTS RESULT OUT OF RANGE REFERENCE UNITS LAB BGLU 70-100 mg/dL High 128 Glucose,Beds elpidio Result Comment: Test performed by glucose meter. Results may be 10%-15% lower than serum/plasma values. (CLIA ID [id number]) Performed By: #### BGLU #### [facility] [address] [place] [id number] Observed: 08/02/2017 Status: F Source: [employer] CULTURE GRP. B. 6:40 PM SYSTEM REPOSITORY STREP. Specimen Source Comment:Vaginal [facility] Patient name: PARVIN DE OLIVEIRA PatR.N.: [id number] : 1995 Age: 21 Sex: F Ord. Physician: RICH GUZMAN Location: [address] [place] [address] Copy to: RICH GUZMAN Adm. Date: 08/02/17 MICROBIOLOGY ORDER#: [id number] COLLECTED: 08/02/17 18:40 SOURCE: Vagina RECEIVED: 08/02/17 20:46 OE C O M M E N T S Specimen Source Comment:Vaginal CULTURE GRP. B. STREP. FINAL 08/05/17 11:37 08/05/17 No beta-streptococcus Group B isolated. CDC guidelines for prevention of Gp B Strep disease recommend collection of both vaginal and rectal specimens for optimal recovery of GBS. Cervical specimens are not recommended. Performed By: #### C/SGB #### [facility] [address] [place] [id number] GLUCOSE,BEDSIDE Collected: 08/02/2017 Status: F Source: [employer] 5:35 PM SYSTEM REPOSITORY TYPE CODE TESTS RESULT OUT OF RANGE REFERENCE UNITS LAB BGLU 70-100 mg/dL High 120 Glucose,Beds elpidio Result Comment: Test performed by glucose meter. Results may be 10%-15% lower than serum/plasma values. (CLIA ID [id number]) Performed By: #### BGLU #### [address] [address] Observed: 08/02/2017 Status: F Source: [employer] TS GEL 3:34 PM SYSTEM REPOSITORY PATIENT: ERYN MELENDREZ LOC: [place] [address] BILL# : [id number] : 1995 SEX: F AGE: 21 ORDERED BY: NAZIA Charles ORDERED : 08/02/2017 15:32 COLLECTED: 08/02/2017 15:34 ORDER : [id number] RECEIVED : 08/02/2017 15:52 TEST NAME RESULT UNITS RANGES ABN FL ST ABO Group B F Rh, Gel POS F Antibody Screen Gel NEG F Performed By: #### TSGL #### [address] [address] HEMOGRAM Collected: 08/02/2017 Status: F Source: [employer] 3:30 PM SYSTEM REPOSITORY TYPE CODE TESTS RESULT OUT OF RANGE REFERENCE UNITS LAB IWBC 3.6-10.7 10*3/uL High WBC 11.3 LAB RBC 3.80-5.20 10*6/uL RBC Normal 3.82 LAB HGB 11.7-16.0 g/dL Low Hemoglobin 8.0 LAB HCT 35.0-47.0 % Low Hematocrit 25.6 LAB MCV 79.0-98.0 fL Low MCV 66.9 LAB MCH 26.0-34.0 pg Low MCH 20.9 LAB MCHC 32.0-36.0 % Low MCHC 31.2 LAB RDW 11.5-14.5 % High RDW 17.3 LAB PLT 140-440 10*3/uL Platelet Normal 256 LAB MPV 7.4-10.4 fL MPV Normal 8.4 Performed By: #### KENISHA PRESCOTT3M #### [address] [place] [address] COMP PANEL WITH MG Collected: 08/02/2017 Status: F Source: [employer] REFLEX 3:30 PM SYSTEM REPOSITORY TYPE CODE TESTS RESULT OUT OF RANGE REFERENCE UNITS LAB NA3 137-145 mmol/L Low Sodium 136 LAB K3 3.5-5.1 mmol/L Normal Potassium 3.9 LAB CL3 98-107 mmol/L Chloride Normal 106 LAB CO23 22-30 mmol/L Low Carbon Dioxide 19 LAB ANIN3 Anion Normal Gap 11 LAB GLUC3 70-100 mg/dL Glucose Normal 98 LAB BUN3 7-20 mg/dL Urea Normal Nitrogen 12 LAB CRET3 0.52-1.25 mg/dL Normal Creatinine 0.69 LAB GF3BR >60 mL/min eGFR Normal >60.0 LAB GF3WR >60 mL/min eGFR Normal OTHER >60.0 Result Comment: Source- MDRD equation with creatinine calibration to IDMS(NKDEP) eGFR not recommended for drug dose adjustment LAB CA3 8.4-10.2 mg/dL Calcium Normal 9.2 LAB ALB3 3.5-5.0 g/dL Low Albumin, Serum 3.3 LAB TP3 6.3-8.2 g/dL Total Protein Normal 6.8 LAB BILT3 0.2-1.3 mg/dL Normal Bilirubin,Total 0.2 LAB ALKP3 38-126 U/L High Alkaline Phosphatase 153 LAB ALT3 13-69 U/L ALT (SGPT) Normal 20 LAB AST3 15-46 U/L AST (SGOT) Normal 16 Performed By: #### KENISHA PRESCOTT3M #### [address] [place] [address] GLUCOSE,BEDSIDE Collected: 08/02/2017 Status: F Source: [employer] 3:27 PM SYSTEM REPOSITORY TYPE CODE TESTS RESULT OUT OF RANGE REFERENCE UNITS LAB BGLU 70-100 mg/dL High 104 Glucose,Beds elpidio Result Comment: Test performed by glucose meter. Results may be 10%-15% lower than serum/plasma values. (CLIA ID [id number]) Performed By: #### BGLU #### [address] [place] [address] CBC-COMPLETE BLOOD CNT Collected: 07/26/2017 Status: F Source: BE NO DIFF 11:23 AM [facility] REPOSITORY TYPE CODE TESTS RESULT OUT OF RANGE REFERENCE UNITS LAB L100.1000 4.4-11.0 K/mm3 Normal WBC 10.5 LAB L100.1200 4.2-5.4 M/mm3 Low RBC 3.64 LAB L100.1300 12.0-15.0 g/dl Low HGB 8.0 LAB L100.1400 37-47 % Low HCT 26.1 LAB L100.1500 81-99 fL Low MCV 71.7 LAB L100.1600 27.0-32.0 pg Low MCH 22.0 LAB L100.1700 32-36 g/gl Low MCHC 30.7 LAB L100.1810 11.6-14.6 % High RDW CV 15.6 LAB L100.1820 35.1-43.9 fl Normal RDW SD 39.8 LAB L100.1900 150-450 K/mm3 Normal PLT 275 LAB L100.2000 6.2-12.0 fl Normal MPV 10.5 Performed By: #### L100.0500, L100.4500 #### [facility] [address] [facility]. [place], [place], [id number] DIFFERENTIAL COMMENT Collected: 07/26/2017 Status: F Source: BE 11:23 AM [facility] REPOSITORY TYPE CODE TESTS RESULT OUT OF RANGE REFERENCE UNITS LAB L100.4500 Normal SMEAR COMMENT Result Comment: MICROCYTOSIS 1+ HYPOCHROMIA 1+ Performed By: #### L100.0500, L100.4500 #### [facility] [address] [facility] [place], [address] PROTHROMBIN TIME W/INR Collected: 07/26/2017 Status: F Source: BE 11:23 AM [facility] REPOSITORY TYPE CODE TESTS RESULT OUT OF RANGE REFERENCE UNITS LAB L300.4150 11.7-14.9 SECONDS Normal PROTIME 13.3 LAB L300.4200 Normal INR 1.1 Performed By: #### L300.3900, L300.4310 #### [facility] [address] [place], [address] PARTIAL THROMBOPLAST Collected: 07/26/2017 Status: F Source: MERCER TIME 11:23 AM [facility] REPOSITORY TYPE CODE TESTS RESULT OUT OF RANGE REFERENCE UNITS LAB L300.4310 24.1-36.2 Seconds Normal PTT 25.9 Performed By: #### L300.3900, L300.4310 #### [facility] [address] [place], [address] HEMOGLOBIN A1C Collected: 07/26/2017 Status: F Source: MERCER 11:23 AM [facility] REPOSITORY TYPE CODE TESTS RESULT OUT OF RANGE REFERENCE UNITS LAB L501.9985 4.2-6.3 % High HGB A1C 7.3 Performed By: #### L501.9985 #### [facility] [address] [place], [address] GLUCOSE Collected: 07/26/2017 Status: F Source: MERCER 11:23 AM [facility] REPOSITORY TYPE CODE TESTS RESULT OUT OF RANGE REFERENCE UNITS LAB L501.0100 70-110 mg/dL Normal GLU 105 Performed By: #### L501.0100, L501.1105, L501.1400, L501.4100, L501.4405 #### [facility] [address] [place], [address] SERUM CREATININE AND Collected: 07/26/2017 Status: F Source: MERCER GFR 11:23 AM [facility] REPOSITORY TYPE CODE TESTS RESULT OUT OF RANGE REFERENCE UNITS LAB L501.1100 0.55-1.02 mg/dL Normal 0.59 CREAT,SERUM Result Comment: The validity of the calculated GFR AND GFRAA in patients over 70 years has not been determined. Clinical correlation is essential. LAB L501.1110 >60 mL/min Normal EST GFR 134 Result Comment: Non- GFR Calc LAB L501.1115 >60 mL/min Normal EST GFR - AA 162 Result Comment: GFR Calc Performed By: #### L501.0100, L501.1105, L501.1400, L501.4100, L501.4405 #### [facility] [address] [place], [address] URIC ACID Collected: 07/26/2017 Status: F Source: BE 11:23 AM [facility] REPOSITORY TYPE CODE TESTS RESULT OUT OF RANGE REFERENCE UNITS LAB L501.1400 2.6-6.0 mg/dL Normal URIC 4.3 Result Comment: The drugs N-Acetylcysteine and Metamizole may falsely depress this assay. Performed By: #### L501.0100, L501.1105, L501.1400, L501.4100, L501.4405 #### [facility] [address] [place], [address] AST(SGOT) Collected: 07/26/2017 Status: F Source: BE 11:23 AM [facility] REPOSITORY TYPE CODE TESTS RESULT OUT OF RANGE REFERENCE UNITS LAB L501.4100 15-37 U/L Low AST 10 Performed By: #### L501.0100, L501.1105, L501.1400, L501.4100, L501.4405 #### [facility] [address] [place], [address] ALANINE AMINOTRANSFERAS Collected: 07/26/2017 Status: F Source: BE (SGPT) 11:23 AM [facility] REPOSITORY TYPE CODE TESTS RESULT OUT OF RANGE REFERENCE UNITS LAB L501.4405 12-78 U/L Normal ALT 12 Performed By: #### L501.0100, L501.1105, L501.1400, L501.4100, L501.4405 #### [facility] [address] [place], [address] INITAL EVALUATION (1) Observed: 07/24/2017 Status: F Source: BE - PT 5:53 PM [facility] REPOSITORY [facility] [address] [place] [address]. [address] [place] [address] Fax REHABILITATION SERVICES INITIAL EVALUATION MR#: [id number] Acct: [id number] Name: PARVIN DE OLIVEIRA Rep #: [id number] : 1995 21 From: Negrita Che PT, Cert. MDT Referring Dr.: Beata Villarreal MD Status: REG R Insurance: [facility] SELF PAY INSURANCE Patient's Visit Information PARVIN DE OLIVEIRA is a 21 year old F referred to Physical Therapy by Beata Villarreal with a diagnosis of GUSTATIONAL DM, PRE-ECLAMPSIA. SCIATICA.. Date of Evaluation: 07/24/17 Physical Therapist: Negrita Che - Visit Plan Frequency: 2-3x /Week Duration: 4-6 Weeks Plan: PROCEED SLOWLY 32 WEEKS WITH PRE-CLAMSIA AND GUSTATIONAL DIABETES. AQUATIC THERAPY FOR GENTLE UNLOADING OF SPINE AND GENTLE MVMT WITH NEUTRAL SPINE. GENTLE DLS TOLERATED. GENTLE DAKOTAH LE STRENGTHEING. FOCUS ON PAIN REDUCTION. VERY GENTLE REP EXTENSION THROUGH A SMALL ROM IS OK TOLERATED. MONITOR PERIPHERALIZATION OF SX'S. - Subjective Subjective: THIS PATIENT PRESENTS TO PT WITH C/O LBP THAT IS GOING DOWN HER LEG. SHE REPORTS SHE IS *32 WEEKS * AND HER LBP STARTED A FEW WEEKS AGO BUT GOT REALLY BAD ON SATURDAY. SHE REPORTS SHE JUST SAW DR. VILLARREAL SATURDAY AND THEN CALLED SATURDAY WITH C/O INCREASED BACK PAIN AND THAT IS WHEN PT WAS ORDERED. Work/Leisure: LAST WORKED JAN 2017 DOING [employer]. Disability: NO. Present symptoms: LOW BACK, LEFT THIGH. DENIES DAKOTAH LE NUMBNESS OR TINGLING. Present since: COUPLE WEEKS AGO. Pain Scale: WORST 9/10, LEAST 4/10. Currently: 9/10. Commenced as a result of: NO APPARENT REASON. WOKE UP WITH THE PAIN. GOT WORSE SATURDAY AFTER GIVING DOG A BATH SATURDAY AND SHE COULD BARELY STAND UP AFTER THAT - IT'S BEEN HORRIBLE SINCE THEN. Symptoms at onset: LOW BACK. Worse: WALKING, LYING DOWN, SITTING: PRETTY MUCH ANYTHING I DO. Better: NOTHING. Disturbed sleep: YES. Previous history/Previous treatment: CONSTANT LBP FOR YEARS BUT NOTHING THIS BAD. NO PRIOR TREATMENTS. Coughing/sneezing/straining: ? Gait: NO AD'S BUT VERY PAINFUL TO WALK. Difficulty initiating urinatin: NO. Accidents: NO. Unexplained weight loss: N/A. Imaging: NO. PMH: GALLSTONES. LOW IRON. OTHER: PRE-ECLAMPSIA - BEING MONITORED 2 TIMES A WEEK. STATES THAT IF SHE GETS EXTREME WARE, STARTS SEEING SPOTS, GETS DIZZY OR SEIZURES TO SEEK HELP IMMEDIATELY. GUSTATIONAL DIABETES - CHECKING BLOOD SUGAR 4 TIMES A DAY. STATES HER BLOOD SUGARS HAVE BEEN RUNNING NORMAL. - Objective Sitting Posture: POOR. Standing Posture: POOR. Lordosis: INCREASED. Lateral shift: NO. Relevant shift: N/A. Active Correction of posture: WORSE. Other Observations: PATIENT IS PLEASANT AND COOPERATIVE TO WORK WITH BUT APPEARS TO BE IN A LOT OF PAIN. ALL OF HER MOVENTS ARE VERY GUARDED AND SHE CAN NOT GET COMFORTABLE IN SITTING. SHE DOES WALK INDEP'LY INTO PT X APPROX 300 FEET WITHOUT ANY ASSISTIVE DEVICES BUT WITH DECREASED CADANCE, GRIMACING AND DECREASED TRUNK ROTATION. Motor deficit: DAKOTAH LE'S 5/5 WITH MMT EXCEPT RIGHT HIP 4-/5 AND LEFT HIP 4/5 (RIGHT HIP IS WEAKER AND PROVOKES MORE PAIN WITH TESTING THAN LEFT DESPITE C/O LEFT THIGH PAIN AND NOT RIGHT). Sensory deficit: DAKOTAH LE LIGHT TOUCH SENSATION INTACT. ROM deficit: DAKOTAH LE'S WFL. Reflexes: 2/2 DAKOTAH LE'S. Dural Signs: POSITIVE LLE. Lumbar mvmt loss: flex - MOD. ext - MOD. R SG - MIN. L SG - MIN. PATIENT WITH C/O PAIN WITH LUMBAR ROM TESTING ALL PLANES. Core strength: NT. Palpation: LUMBAR TENDERNESS AND INCREASED MUSCLE TONE OF PARASPINALS THROUGHOUT. - Goals Goal 1:: DECREASE C/O LB AND LEFT THIGH SX'S Goal Time Frame: 4-6 Weeks Goal 2:: IMPROVE SITTING, STANDING, WALKING, BENDING, LIFTING, LYING AND SLEEP FUNCTION Goal Time Frame: 4-6 Weeks Goal 3:: INSTRUCT IN PROPHYLAXIS Goal Time Frame: 4-6 Weeks - Rehabilitation Potential Rehabilitation Potential: Fair - Anticipated Interventions Patient/Client Instruction: Educate patient on: Condition, Plan of Care, Risk Factors, Benefits of Fitness Program For the Purpose of:: To improve self management Therapeutic Exercise to Include: Strength training, Body mechanics, Postural training, Flexibilty training, Gait and locomotor training, In an aquatic setting, Dynamic Lumbar Stabilization For the Purpose of:: To decrease pain, To decrease swelling/inflammation, To improve ability of physical actions for home/community/work/leisure, To improve gait and locomotor functions Thank you for the opportunity to evaluate your patient. For Medicare and Medicare HMO plans, please review the plan of care and approve it. It will need to be FAXED BACK to us at [phone] for Medicare purposes. Please let me know if there are questions or concerns regarding this plan of care. Physician Signature: Date: <Electronically signed by Negrita Che PT, Cert. MDT> 07/24/17 1753 CC: Beata Villarreal MD ROSA MARIA Signed For Medicare only, by signing this I certify the plan of care. Physicians Signature Date ALLERGIES ALLERGIES DATE TYPE / CODE NAME / CODE REACTION SEVERITY SOURCE 06/14/2018 Drug No Known Unknown [place] Allergy/416 Allergies/[id number] Community 753118(SNOM 88(RXNORM) [facility] ED CT) Repository DRUG AMOXICILLIN RASH [facility] INGREDI/419 [address] [place] [address](SNOM Repository ED CT) Drug NO KNOWN ALLERGIES [facility] Class/40398 [place] 1003(SNOMED Repository CT) ENCOUNTERS ENCOUNTERS ADMIT/DISCHARGE ACCOUNT NUMBER ADMITTING ENCOUNTER LOCATION SOURCE CLASS 07/22/2018/07/23/19 [id number] Ambulatory [address] [place] Repository 07/16/2018/07/16/19 [id number] Ambulatory [address] Repository 07/14/2018/07/14/19 [id number] Ambulatory [address] Repository 07/14/2018/07/18/19 [id number] Ambulatory [address] Repository 07/08/2018/07/08/19 [id number] Ambulatory [address] Repository 07/08/2018/07/09/19 [id number] Ambulatory [address] [place] Repository 07/04/2018/07/04/19 [id number] Ambulatory [address] [place] Repository 06/14/2018/06/14/20 [id number] Emergency [address] ding:ED Repository 05/13/2018/05/14/20 [id number] Ambulatory [address] Repository 04/30/2018/05/01/20 [id number] Ambulatory [address] Repository 02/06/2018/02/08/20 [id number] Ambulatory [address] Repository 02/05/2018/02/07/20 [id number] Ambulatory [address] Repository 12/09/2017 [id number] Ambulatory [facility] Repository 12/09/2017/12/11/19 [id number] Ambulatory [address] Repository 11/04/2017 [id number] Ambulatory [facility] ding:LAB.FUT Repository URE 09/24/2017/09/25/19 [id number] Ambulatory [address] ding:SDC Repository 09/24/2017 [id number] Ambulatory [facility]: [facility] Repository 09/24/2017 [id number] Ambulatory BMSBuilding: [facility] Repository 09/13/2017/09/15/19 [id number] Emergency [address] ding:ED Repository 09/12/2017/09/13/19 [id number] Ambulatory BMSBuilding: Be [address] [facility]MS.[facility] Repository 08/02/2017 [id number] Inpatient [address] [place] [address] Encounter 2NRoom: System [id number]: Repository [id number] 07/26/2017 [id number] Ambulatory [facility] ding:WOBLAB Repository 07/24/2017/07/24/19 [id number] Ambulatory [address] ding:PT Repository PAYERS PAYERS ENCOUNTER GUARANTOR PAYER SUBSCRIBER SOURCE 06/14/[address] PAR[address] [place] [address] PARVIN M Be RICHENBAUGH Insurance:CARESOURCEP SMITHDOB: [facility] Number: [id number] [address]Tpt: [id number] Repository Date:2018-06-14P O () [address]ATTN: [place] [address]YW: 06/14/2018 Secondary NOT GIVENUNK [place] Insurance:SELF PAY [facility] Number: Effective Repository Date:2018-06-14 11/04/2017 PARVIN Ivon [id number] Primary NOT GIVENUNK [place] RICHENBAUGH Insurance:SELF PAY [facility] [address]Efb: Number: Effective Repository Date:2017-11-04 () 09/24/2017 PARVIN KING Primary PARVIN Workmanoster RICHENBAUGH Insurance:CARESOURCEP SMITHDOB: [facility] Number: [id number] Vista [facility] [address]Srl: [id number] Repository Date:2017-09-16P O () [address]ATTN: [place] [address]IJ: 09/24/2017 Secondary NOT GIVENUNK Be Insurance:SELF PAY [facility] Number: Effective Repository Date:2017-09-16 09/24/2017 PARVIN DE OLIVEIRA150 Primary PARVIN Lr RICHENBAUGH Insurance:CARESOURCEP SMITHDOB: [facility] Number: [id number] Vista Hospital [address]Twq: [id number] Repository Date:2017-09-16P O () [address]ATTN: [place] [address]NY: 09/24/2017 Secondary NOT GIVENUNK Be Insurance:SELF PAY [facility] Number: Effective Repository Date:2017-09-24 09/24/2017 PARVIN KING Primary PARVIN M Be RICHENBAUGH Insurance:CARESOURCEP SMITHDOB: [facility] Number: [id number] Vista Hospital [address]Uqd: [id number] Repository Date:2017-09-16P O () [address]ATTN: [place] [address]US: 09/24/2017 Secondary NOT GIVENUNK Be Insurance:SELF PAY [facility] Number: Effective Repository Date:2017-09-24 09/13/2017 PARVIN DE OLIVEIRA150 Primary PARVIN SEGURA Insurance:CARESOURCEP [facility]NDOB[facility] WH[facility] Number: [id number] Vista [facility] [address]Ick: [id number] Repository Date:2017-09-13P [address] () [address]ATTN: [place] [address]WK: 09/13/2017 Secondary NOT GIVENUNK Be Insurance:SELF PAY [facility] Number: Effective Repository Date:2017-09-13 09/12/2017 PARVIN M [id number] Primary PARVIN SEGURA Insurance:CARESOURCEP MARKB: [facility] broderick SANCHEZ Number: [id number] [address]Ibi: [id number] Repository Date:2017-09-09 O () [address]ATTN: [place] [address]GG: 09/12/2017 Secondary NOT GIVENUNK [place] Insurance:SELF PAY [facility] Number: Effective Repository Date:2017-09-09 08/02/2017 Parvin MarkB: Primary Parvin HuntB: [facility] Insurance:CareSourceP [id number] System broderick Kurtz Number: Repository [place] [address]Sli: Effective Date: (HP) 07/26/2017 PARVIN DE [id number] Primary PARVIN Lr RENZO CRAWFORD, Insurance:[facility] [address]Yaa: olicy Number: [id number] Hospital [id number] Repository (HP) Date:2017-07-26[address]ATTN: [place] [address]AG: 07/26/2017 Secondary NOT GIVENUNK [place] Insurance:SELF PAY [facility] Number: Effective Repository Date:2017-07-26 07/24/2017 PARVIN Del Valle [id number] Primary PARVIN Workmankaren CRAWFORD, [facility] [address]Byh: olicy Number: [id number] Hospital [id number] Repository (HP) Date:2017-03-31[address]ATTN: [place] [address]UB: 07/24/2017 Secondary NOT GIVENUNK Be Insurance:SELF PAY [facility] Number: Effective Repository Date:2017-07-24
== END 2018-06-14 15:17 | disposition home or self-care (01) ==
LOC: ED 15:10
PROVIDERS: Emergency Provider Emergency Medicine; Family Provider Internal Medicine; PCP Internal Medicine
DX: R11.2 Nausea with vomiting, unspecified (principal); R19.7 Diarrhea, unspecified; R10.9 Unspecified abdominal pain; R50.9 Fever, unspecified
CPT/HCPCS: 96361; 96374; 99284; J7030; J2405

== ENCOUNTER 2018-11-10 09:41 | Emergency (ER) | payer MEDICAID, SELFPAY ==
[2018-11-10 09:41] VITALS: BP 129/65; PULSE 96; RESP 18; TEMP 36.8; O2SAT 97; BMI 39.2
[2018-11-10 09:44] VITALS: BP 129/65; PULSE 96; RESP 18; TEMP 36.8; O2SAT 97
--- NOTE | 2018-11-10 10:02 | ED.DCSUM_ITS ---
History of Present Illness Chief Complaint: Cough Informant: Patient Onset: Days - 4 days prior to evaluation Context: Sudden Onset Timing: Intermittent Quality: Fever, cough, wheezing Location: Respiratory Current Severity: Mild Maximum Severity: Moderate Worsened by: Nothing Relieved by: Nothing Associated Symptoms: Viral-like symptoms including diarrhea Narrative: Patient is a 23-year-old G2, P1 female who is 22 weeks gestation and presents with nasal congestion, rhinorrhea, postnasal drainage with slightly productive cough of clear-colored sputum. Onset of illness 4 days ago. She does have history of asthma. She states her inhalers are empty. She reports temperature to 100.4 ?F. She denies headache, photophobia, neck pain or neck stiffness. She denies ear pain or decreased hearing. She denies chest pain. She denies leg pain, swelling discoloration. She denies vomiting. She reports 2 loose stools since yesterday. She does report frequency with no dysuria or hematuria. She denies vaginal bleeding. She is seen at the [facility] for her obstetric care. Prior similar symptoms: Yes Recent Illness/Hospitalization: No - Past Medical History (1) Asthma Status: Acute (2) Cholelithiasis Status: Acute Past Medical History - Allergies and Home Meds Allergies/Adverse Reactions: Allergies No Known Allergies Allergy (Verified 11/10/18 09:43) Primary Care Physician: Vernell Cordero MD [STAFF PHYSICIAN] - Prior records reviewed: Yes Surgical History: - - and tonsillectomy Lives: With Family Smoking Status: Never smoker Alcohol: None Review of Systems General: Denies: Chills, Fever, Sweats Eyes: Denies: Visual changes - bilaterally, Blurred Vision - bilaterally, Diplopia ENT: Reports: Rhinorrhea. Denies: Bilateral ear pain, Sore throat Cardiovascular: Denies: Chest pain, Palpitations Respiratory: Reports: Dyspnea, Cough. Denies: Sputum Gastrointestinal: Denies: Abdominal pain, Nausea, Vomiting, Diarrhea, Melena, Hematochezia Genitourinary: Reports: Frequency. Denies: Dysuria, Hematuria Musculoskeletal: Denies: Back pain, Extremity Pain Skin: Denies: Rash, Wounds Neurological: Denies: Headache, Weakness, Numbness Allergy: Denies: Uticaria, Swelling of the mouth Physical Exam Vital Signs/Narrative: Vital Signs Temp Pulse Resp BP Pulse Ox 11/10/18 09:44 98.3 F 96 18 129/65 H 97 11/10/18 09:41 98.3 F 96 18 129/65 H 97 Inital Vital Signs reviewed: Yes General: Well nourished, Well developed, No Acute Distress Head: Normocephalic, Atraumatic Eyes: Perrl, EOMI. Negative for: Pale conjunctiva, Scleral icterus ENT: Moist mucous membranes, No rhinorrhea, TM's clear Neck: Supple, Nontender Cardiovascular: Regular rate, Regular rhythm, No murmurs Respiratory: No distress, Chest nontender, Wheezing, - - Expiratory phase was prolonged Abdomen: Soft, Nontender, Nondistended, Mass - Gravidus ureters past the umbilicus.. Negative for: Hepatomegaly, Splenomegaly Back: Nontender, Normal Inspection. Negative for: CVA tenderness Extremities: Nontender, No edema, - - There is no asymmetry, swelling, discoloration, leg vein distention, palpable cords or tenderness along the distribution of the deep venous system. Skin: Normal color, No rash Neurological: Alert, Oriented x3, Cranial nerves II-XII grossly intact, Normal Strength, Normal Sensation, Normal Gait Psychological: Normal affect, Normal Mood Diagnostic/Tx/Re-eval Chest X-Ray - ED: 2 View, Read by ED Physician, 2013, Normal, Heart, Lungs, Mediastinum, Bony Structures, No Acute Disease - Rhythm Strip Rhythm Strip: Sinus Rhythm Rate: 92 Ectopy: None - Medical Decision Making With documented fever and scantly productive cough will obtain chest x-ray. Suspect viral illness. If no evidence of infiltrate on x-ray will not treat with antibiotics especially since she reports diarrhea that started yesterday. Control includes viral upper respiratory infection/acute bronchitis versus pneumonia with exacerbation of asthma. With negative chest x-ray will not place on antibiotics since she already complains of diarrhea. Will reassess after aerosol treatments. Patient was reassessed at 1038. She is presently wheeze free. Will write prescription for albuterol metered-dose inhaler and she will receive a dose of Decadron in the emergency department. ED Disposition - Plan for ED Patient: Disposition: Home or Assisted Living Diagnosis: Exacerbation of allergic asthma due to infection Instructions: ED Reactive Airway Disease, ED URI Viral W Wheezing Prescriptions: Albuterol Inhaler [Ventolin Hfa] 2 puff INHALATION Q4H PRN PRN #1 inhaler PRN Reason: Wheezing Referrals: Vernell Cordero MD [STAFF PHYSICIAN] - 3-5 Days Additional Instructions: Your prescription was electronically transmitted to [facility] located on [facility].
--- NOTE | 2018-11-10 10:05 | RAD_ITS ---
STUDY: X-RAY CHEST REASON FOR EXAM: Female, 23 years old. Cough, wheezing and fever. The patient is 23 weeks . The patient is shielded appropriately. TECHNIQUE: PA and lateral views of the chest. COMPARISON: None. FINDINGS: The lungs are clear and expanded. There is no demonstrated pleural abnormality. Normal size heart. Normal mediastinum and bryan. Normal visualized pulmonary arteries. Normal visualized aortic arch and descending thoracic aorta. Normal visualized thoracic spine. Normal visualized ribs, clavicles, and shoulders. There is no demonstrated abnormality of the visualized soft tissue structures of the upper abdomen. RAD/Chest PA and Lateral IMPRESSION: Normal x-ray examination of the chest. Electronically Signed: Edvin Church, at 10:25 EDT , Service support ,
[2018-11-10 10:12] VITALS: PULSE 93; RESP 18
[2018-11-10] MEDS: Albuterol 2.5 MG/3 ML VIAL.NEB. INHALATION ×3 (10:12→10:25)
[2018-11-10] MEDS: Ipratropium/Albuterol Sulfate 3 ML AMPUL.NEB INHALATION (10:12)
[2018-11-10 10:25] VITALS: PULSE 97; RESP 18
[2018-11-10 10:31] VITALS: O2SAT 96
[2018-11-10] MEDS: dexAMETHasone 4 MG Tablet PO (10:54)
[2018-11-10 10:55] VITALS: BP 140/61; PULSE 129; RESP 15; O2SAT 100
== END 2018-11-10 10:58 | disposition home or self-care (01) ==
PROVIDERS: Emergency Provider Emergency Medicine
DX: O99.512 Diseases of the respiratory system complicating pregnancy, second trimester (principal); J45.901 Unspecified asthma with (acute) exacerbation; O26.892 Other specified pregnancy related conditions, second trimester; R19.7 Diarrhea, unspecified; Z87.19 Personal history of other diseases of the digestive system; Z3A.22 22 weeks gestation of pregnancy
CPT/HCPCS: 71046; 94640; 99283

== ENCOUNTER 2019-02-22 19:26 | Emergency (ER) | payer MEDICAID, SELFPAY ==
[2019-02-22 19:27] VITALS: BP 117/66; PULSE 105; RESP 16; TEMP 37.1; O2SAT 96; BMI 42.5
--- NOTE | 2019-02-22 19:47 | EKG12_ITS ---
Test Reason : SOB Blood Pressure : / mmHG Vent. Rate : 093 BPM Atrial Rate : 093 BPM P-R Int : 128 ms QRS Dur : 084 ms QT Int : 376 ms P-R-T Axes : 011 021 004 degrees QTc Int : 467 ms Normal sinus rhythm Normal ECG Confirmed by GRACIELA LEHMAN, ELAYNE ([id number]), film editor supervisor KALA GREENE ([id number]) on 02/25/2019 11:48:20 AM Referred By: DC Confirmed By:ELAYNE OWENS MD
--- NOTE | 2019-02-22 19:47 | RAD_ITS ---
STUDY: X-RAY CHEST REASON FOR EXAM: Female, 23 years old. Increased shortness of breath had 36 weeks . TECHNIQUE: Single AP portable view of the chest. COMPARISON: November 10, 2018. FINDINGS: The lungs are clear and expanded. There is no demonstrated pleural abnormality. Normal size heart. Normal mediastinum and bryan. Normal visualized pulmonary arteries. Normal visualized aortic arch and descending thoracic aorta. Normal visualized thoracic spine. Normal visualized ribs, clavicles, and shoulders. There is no demonstrated abnormality of the visualized soft tissue structures of the upper abdomen. RAD/Chest 1 View (Portable) IMPRESSION: No acute cardiopulmonary disease or major interval change. Electronically Signed: Leonid Bonilla DO at 20:00 EDT Tel [phone], Service support ,
--- NOTE | 2019-02-22 19:48 | ED.DCSUM_ITS ---
History of Present Illness Chief Complaint: Shortness of Breath Informant: Patient Onset: Today - around 4 hrs ago Activity at onset: Rest Timing: Continuous Quality: - - feel sob Current Severity: Mild Maximum Severity: Mild Worsened by: Exertion Associated Symptoms: Negative for: Bloody Sputum, Cough Chest Pain: Continuous, - - heaviness, substernal Narrative: Patient is 38 weeks , she states that she has been having chest pain and shortness of breath for the past 3 or 4 hours. She tried using her asthma inhaler and it did not help so she presents to the ER. She has had no history of DVT or PE. She denies any calf pain or unilateral leg swelling although she has had some mild swelling in both ankles since yesterday when [place]. She denies major pleuritic component to her chest discomfort in it, and it does not radiate. She has not had any cough or congestion or significant asthma problems lately. She also states that she has been having pelvic contractions that are relatively mild, 30-45 minutes apart, lasting may be 45 seconds each, throughout each day every day for the past 4 or 5 days. - Past Medical History (1) Asthma Status: Chronic Past Medical History - Allergies and Home Meds Allergies/Adverse Reactions: Allergies No Known Allergies Allergy (Verified 02/22/19 19:32) Primary Care Physician: Care Physician,No Primary [Primary Care Provider] - Surgical History: - - and tonsillectomy Lives: Spouse/ Significant Other Smoking Status: Never smoker Drugs: None Review of Systems General: Denies: Chills, Fever, Sweats Eyes: Denies: Visual changes - bilaterally, Diplopia ENT: Denies: Rhinorrhea, Sore throat Cardiovascular: Reports: Chest pain. Denies: Palpitations Respiratory: Reports: Dyspnea. Denies: Cough, Orthopnea Gastrointestinal: Reports: Abdominal pain - Contractions. See HPI.. Denies: Nausea, Vomiting, Diarrhea, Melena, Hematochezia Genitourinary: Reports: - - No vaginal leakage or bleeding.. Denies: Dysuria, H ematuria, Frequency Musculoskeletal: Reports: Swelling - See HPI. Denies: Neck pain, Back pain, Extremity Pain Skin: Denies: Rash, Wounds Neurological: Denies: Headache, Weakness, Numbness Physical Exam Vital Signs/Narrative: Vital Signs Temp Pulse Resp BP Pulse Ox 02/22/19 19:27 98.7 F 105 H 16 117/66 96 Inital Vital Signs reviewed: Yes General: Well nourished, Well developed, No Acute Distress - Well-appearing, conversational in full sentences Head: Normocephalic, Atraumatic Eyes: Perrl, EOMI ENT: Moist mucous membranes, No rhinorrhea Neck: Supple, Nontender, No lymphadenopathy, No JVD Cardiovascular: Regular rate, Regular rhythm, No murmurs, Normal S1, Normal S2, Tachycardia - Mild Respiratory: No distress, CTA bilaterally, Chest nontender Abdomen: Soft, Nontender, Normal bowel sounds, - - Gravid uterus, well above the umbilicus Back: Nontender, Normal Inspection. Negative for: CVA tenderness Extremities: Nontender, No edema. Negative for: Calf Tenderness Skin: Normal color, No rash, No Trauma Neurological: Alert, Oriented x3, Cranial nerves II-XII grossly intact, Normal Strength, Normal Sensation Psychological: Normal affect, Normal Mood Diagnostic/Tx/Re-eval Impressions Chest X-Ray 02/22/19 19:47 IMPRESSION: No acute cardiopulmonary disease or major interval change. Electronically Signed: Leonid Bonilla DO at 20:00 EDT Tel [phone], Service support , 02/22/19 19:47 Chest 1 View (Portable) [RAD] Stat Laboratory Results 02/22/19 02/22/19 20:00 20:00 WBC 6.6 RBC 3.98 L Hgb 10.1 L Hct 31.0 L MCV 77.9 L MCH 25.4 L MCHC 32.6 RDW Std Deviation 61.1 H RDW Coeff of Kel 21.8 H Plt Count 182 MPV 10.4 Immature Gran % (Auto) 0.800 Neut % (Auto) 68.0 Lymph % (Auto) 22.8 [place] % (Auto) 6.2 Eos % (Auto) 1.7 Baso % (Auto) 0.5 Absolute Neuts (auto) 4.5 Absolute Lymphs (auto) 1.51 Nucleated RBC % 0 Platelet Estimate ADEQUATE Anisocytosis 1+ Microcytosis 1+ Sodium 139 Potassium 3.6 Chloride 109 H Carbon Dioxide 21.0 Anion Gap 9 BUN 5 L Creatinine 0.57 Estim Creat Clear Calc 120.37 Est GFR (MDRD) Af Amer 166 Est GFR (MDRD) Non-Af 137 BUN/Creatinine Ratio 8.7 L Glucose 114 H Calcium 8.3 L - Rhythm Strip Rhythm Strip: Sinus Rhythm Rate: 96 Ectopy: None - EKG Initial EKG Interpretation: Sinus Rhythm, No Acute Injury Pattern - normal EKG. no S wave in 1 or other signs of right heart strain. Treatment - Dyspnea: Albuterol Repeat Evaluation: Improved - Medical Decision Making Just after exam, discussed with Michelle Lundberg on for the [facility] ACCOUNTING ANALYST group, who states the patient does not need to be monitor while in the emergency department getting worked up. Chest x-ray, EKG, labs are unremarkable, there is no S1Q3T3 pattern. She is not tachycardic on EKG, she did become tachycardic after the albuterol treatment, which actually did help her, she did not want anymore because it did make her pretty jittery. I do not think she has a pulmonary embolus, we discussed the CT scan, the patient is preferring not to have that at this time, given the risks to the baby. I do not think she needs steroids at this time either, I advised using her albuterol if she gets worse, or she can always return to the ER for reevaluation. She is comfortable with that plan. ED Disposition - Plan for ED Patient: Disposition: Home or Assisted Living Diagnosis: Asthma attack Instructions: ASTHMA, Acute (Adult) Referrals: DOMI REZA ACCOUNTING ANALYST [Provider Group] - 1-2 Days if not improving
[2019-02-22] MEDS: Albuterol 2.5 MG/3 ML VIAL.NEB. INHALATION (19:56)
[2019-02-22 19:59] VITALS: PULSE 120; RESP 20
[2019-02-22 20:10] LABS: Absolute Lymphocyte Count 1.51 X10^3/uL (0.83-4.51); Absolute Neutrophil Count 4.5 X10^3/uL (2.0-7.7); Basophil# 0.03 X10^3/uL; Basophil% 0.5 % (0-1); Eosinophil# 0.11 X10^3/uL; Eosinophils% 1.7 % (0-5); Hemoglobin 10.1 g/dL (12.0-15.0); Lymphocyte # 1.51 X10^3/ul (4.0); Lymphocyte % 22.8 % (19-41); Mean Corp Hgb Conc 32.6 g/dL (32-36); Mean Corpuscular Hgb 25.4 pg (27.0-32.0); Mean Corpuscular Volume 77.9 fL (81-99); Mean Platelet Vol. 10.4 fl (6.2-12.0); Monocyte# 0.41 X10^3/uL; Monocyte% 6.2 % (0-10); NRBC Flagged by Analyzer 0 % (0-5); Neutrophil # 4.52 X10^3/uL (2.7-7.7); POSITIVE MORPHOLOGY YES; Platelet Count 182 K/mm3 (150-450); RBC Distribution Width CV 21.8 % (11.6-14.6); RBC Distribution Width SD 61.1 fl (35.1-43.9); Red Blood Count 3.98 M/mm3 (4.2-5.4); White Blood Count 6.6 K/mm3 (4.4-11.0)
[2019-02-22 20:18] LABS: Differential Indicated SCAN CRITERIA MET
--- NOTE | 2019-02-22 20:19 | CPS ---
PT STATES NO CHANGE AFTER TX- PT STATES HEART RACING
[2019-02-22 20:24] LABS: Anion Gap 9 (5-15); BUN 5 mg/dL (7-18); BUN/Creat Ratio 8.7 RATIO (10-20); Calcium,Total 8.3 mg/dL (8.5-10.1); Chloride 109 mmol/L (98-107); Creatinine, Serum 0.57 mg/dL (0.55-1.02); EST Glomerular Filtration Rate 137 mL/min (>60); Est Glom Filt Rate - Afr Amer 166 mL/min (>60); Estimated Creatinine Clearance 120.37 ml/min; Glucose 114 mg/dL (74-106); Potassium 3.6 mmol/L (3.5-5.1); Sodium Level 139 mmol/L (136-145)
[2019-02-22 20:32] LABS: Anisocytosis 1+; Microcytosis 1+; Platelet Estimate ADEQUATE (ADEQ)
[2019-02-22 21:22] VITALS: BP 129/94; PULSE 110; RESP 18; O2SAT 96
== END 2019-02-22 21:26 | disposition home or self-care (01) ==
PROVIDERS: Emergency Provider Emergency Medicine
DX: O99.513 Diseases of the respiratory system complicating pregnancy, third trimester (principal); J45.901 Unspecified asthma with (acute) exacerbation; Z3A.38 38 weeks gestation of pregnancy
CPT/HCPCS: 71045; 80048; 85025; 93005; 94640; 99283; A4216

== ENCOUNTER 2019-02-27 20:25 | Outpatient (CLI) | payer MEDICAID, SELFPAY ==
[2019-02-27 20:50] VITALS: BMI 42.7
[2019-02-27 21:11] LABS: ROM Internal Control Test YES-OK TO RESULT pt. (Internal QC); ROM Patient Test Negative (Negative)
--- NOTE | 2019-02-28 08:22 | OB.TRI.NOTE ---
History of Present Illness Date of Service: 02/27/19 Was patient seen by the physician?: No Reason For Visit: R/O LABOR Date of Service: 02/27/19 Final NICOLE: 03/07/19 Gestational age: 38 6/7 Allergies No Known Allergies Allergy (Verified 02/27/19 20:49) - Pertinent Past Medical History Medical History: Past Medical History (Last Reviewed 09/12/17 @ 09:45 by Alison John) Cholelithiasis (Acute) Asthma (Chronic) Surgical History: Past Surgical History (Last Reviewed 09/12/17 @ 09:45 by Alison John) History of (Acute) 08/06/2017 History of tonsillectomy (Acute) Laboratory Studies: Laboratory Tests 02/27/19 Range/Units 20:35 Vag Amniotic Fld Detect Negative (Negative) NST - FHR Rate Baby A Baseline: 145 Variability:: Moderate Accelerations:: 15 x 15 Decelerations:: None NST Reactive:: Yes FHR Category:: Category I Uterine Activity:: irreg ctxs Impression/Plan 23-year-old G2, P1 at 38-6/7 weeks gestation with false labor, history of previous section. Maternal obesity with BMI 42. ST is reactive. No evidence of labor or spontaneous rupture membranes. Discharge home with labor precautions. Follow-up as needed or as scheduled.
== END 2019-02-27 21:30 | disposition home or self-care (01) ==
LOC: WPOUT 20:40 → WP 20:41
PROVIDERS: Visit Provider Obstetrics & Gynecology
DX: O47.1 False labor at or after 37 completed weeks of gestation (principal); O34.219 Maternal care for unspecified type scar from previous cesarean delivery; O99.213 Obesity complicating pregnancy, third trimester; E66.9 Obesity, unspecified; O99.513 Diseases of the respiratory system complicating pregnancy, third trimester; J45.909 Unspecified asthma, uncomplicated; Z3A.38 38 weeks gestation of pregnancy
CPT/HCPCS: 59025; 59050; 84112; 99218; G0378

== ENCOUNTER 2019-02-28 12:15 | Inpatient (IN) | payer MEDICAID, SELFPAY ==
[2019-02-27 20:50] VITALS: BMI 42.7
[2019-02-28 10:14] VITALS: BMI 41.8
[2019-02-28] MEDS: Lactated Ringers 500 ML 999 ML IV (12:40)
[2019-02-28 12:51] LABS: Absolute Lymphocyte Count 0.97 X10^3/uL (0.83-4.51); Absolute Neutrophil Count 9.5 X10^3/uL (2.0-7.7); Basophil# 0.02 X10^3/uL; Basophil% 0.2 % (0-1); Eosinophil# 0.03 X10^3/uL; Eosinophils% 0.3 % (0-5); Hemoglobin 11.9 g/dL (12.0-15.0); Lymphocyte # 0.97 X10^3/ul (4.0); Lymphocyte % 8.8 % (19-41); Mean Corp Hgb Conc 32.2 g/dL (32-36); Mean Corpuscular Hgb 25.6 pg (27.0-32.0); Mean Corpuscular Volume 79.6 fL (81-99); Mean Platelet Vol. 10.8 fl (6.2-12.0); Monocyte# 0.49 X10^3/uL; Monocyte% 4.4 % (0-10); NRBC Flagged by Analyzer 0 % (0-5); Neutrophil # 9.48 X10^3/uL (2.7-7.7); Neutrophil % 85.7 % (47-70); POSITIVE MORPHOLOGY YES; Platelet Count 198 K/mm3 (150-450); RBC Distribution Width CV 20.7 % (11.6-14.6); RBC Distribution Width SD 59.8 fl (35.1-43.9); Red Blood Count 4.65 M/mm3 (4.2-5.4); White Blood Count 11.1 K/mm3 (4.4-11.0)
[2019-02-28 12:54] LABS: Differential Indicated SCAN CRITERIA MET
[2019-02-28] MEDS: Lactated Ringers 1,000 ML 200 ML IV ×2 (13:11→19:13)
[2019-02-28 13:20] LABS: Differential Comment S
[2019-02-28] MEDS: fentaNYL-bupivacaine (epidural) 100 ML BAG EPIDURAL ×2 (13:48→18:02)
--- NOTE | 2019-02-28 18:06 | PCM.HP.OB ---
History Date of Admission: 02/28/19 Final NICOLE: 03/07/19 Final NICOLE Source: US <20 weeks Gestational age: 39 Weeks and 0 Days History of this : 23-year-old 2 para 0-1-0-1 presents at 39 weeks gestation in labor with spontaneous rupture membranes. EDC is based upon 7-week ultrasound. She denies any gross vaginal bleeding. She is had good movement. is complicated to date by maternal obesity, anxiety, anemia, history of previous section, history of preeclampsia with previous , pre-gestational diabetes with previous , and nausea vomiting in this . Patient denies any history of tobacco alcohol or drug use during the . She has a remote history of chlamydia that was treated. Denies any history of sexually transmitted diseases during the .. Obstetrical history: Patient was induced for preeclampsia at 34 weeks with her previous , had nonreassuring heart tones and a primary section. The op note was reviewed. Patient reports history of gestational diabetes with that . That fetus was LGA at 6 pounds 6 ounces at 34 weeks. Medical History: Medical History (Last Reviewed 09/12/17 @ 09:45 by Alison John) Cholelithiasis (Acute) K80.20 Asthma (Chronic) J45.909 Surgical History: Surgical History (Last Reviewed 09/12/17 @ 09:45 by Alison John) History of (Acute) Z98.891 08/06/2017 History of tonsillectomy (Acute) Z98.890, Z90.89 Allergies No Known Allergies Allergy (Verified 02/28/19 10:16) Home Medications: Home Medications Albuterol Inhaler [Ventolin Hfa] 2 puff INHALATION Q4H PRN PRN #1 inhaler 11/10/18 Pnv No.103/Folic/Om3s/Fish Oil [ Gummies] 1 each PO DAILY 11/10/18 Smoking Status: Never smoker NST - FHR Rate Baby A Baseline: 120 Variability:: Moderate Accelerations:: 15 x 15 Decelerations:: None NST Reactive:: Yes, Appropriate for gestational age FHR Category:: Category I - at admission Uterine Activity:: approx q4 min ctxs at admission History Past Pregnancies: Past Pregnancies Delivery Date Name GA/Weeks Outcome Route Weight Infant Gender Labor Length Anesthesia Delivery Location Provider FOB Expected Delivery Method: Review of Systems Constitutional: Denies: Chills, Fever Eyes: Denies: Blurred vision Cardiovascular: Reports: Edema. Denies: Chest Pain Respiratory: Denies: Cough Genitourinary: Denies: Dysuria Skin: Denies: Rash Neurological: Denies: Blurred vision, Double vision Hematologic/ Lymphatic: Reports: Anemia. Denies: Easy Bruising, Easy Bleeding Physical Exam General: Alert, Cooperative, - - In moderate distress with painful contractions, breathing through the Cardiovascular: Regular rate Lungs: Normal air movement Abdomen: Soft, Non-Distended, Gravid, Appropriate for Gestational Age Extremities:: Deep tendon reflexes - 2+, Other - 1+ edema Neurological: Cranial nerves II-XII grossly intact RUBBER SPLICER: Normal external genitalia Estimated gestational size: Appropriate for gestational size Presentation: Cephalic Assessment/Plan All Active Problems (Last Reviewed 09/12/17 @ 09:45 by Alison John) Right upper quadrant pain (Acute) History of (Acute) History of tonsillectomy (Acute) Cholelithiasis (Acute) This is a 23 year-old, 2 para 0-1-0-1 at 39 weeks gestation in spontaneous labor. Risk benefits and alternatives to trial of labor versus repeat section upon admission were discussed with me when arrived. Patient had plan to attempt trial of labor had she entered spontaneous labor. Patient would like to have trial of labor. Epidural will be placed, internal monitors. Reasoning for this reviewed and patient agrees to proceed. Group B strep prophylaxis is initiated. Estimated weight is clinically 4000 g, pelvis seems clinically adequate to expect vaginal delivery. I reexamined the patient at 1750, cervix is 8, 80, mildly edematous, there is moderate caput molding, and the vertex is at -2 station
[2019-02-28] MEDS: Oxytocin 30 units/NS 500 ml 30 UNITS/500 ML IV.SOLN IV (18:07)
[2019-02-28] MEDS: Ondansetron 4 MG/2 ML Vial IV (19:38)
[2019-02-28] MEDS: Sodium Citrate/Citric Acid 30 ML UDC PO (20:48)
[2019-02-28] MEDS: Cefazolin 2 GM in 0.9% Normal Saline 100 ML IV (20:56)
--- NOTE | 2019-02-28 21:45 | CYST_PTH ---
PATIENT: PARVIN TORRES LOC: [facility] U#:[id number] AGE/SX: 23/F ROOM: WP004 RE02/28/[address]: Dr. Lorrie Rojo MD : 1995 BED: 1 DIS: 03/03/2019 SPEC #: [id number] RECD: 03/01/19 00:41 STATUS: SHARDA TY #: [id number] FUNMLIAYO: 02/28/19 21:[address]: Lorrie Rojo DEPT: SURGICAL PATHOLOGY RECD BY: Juan Manuel Nicole ENTERED: 03/03/19 08:34 SP TYPE: Cyst OTHR DR: No Primary Care Phys Tissues: OVARIAN CYST Procedures: Special Stain Group II Mucicarmine Stain (control) Surgery Specimen Level IV HEADER OPERATION: Cyst removal on right ovarian wall PRE-OP DIAGNOSIS: Cyst TISSUE SUBMITTED: Tissue MICROSCOPIC DIAGNOSIS Ovarian cyst, excision: Consistent with serous cystadenoma. Focal changes of corpus luteum. See comment. AM:navjot 03/04/19 COMMENT Mucin stain with matched control supports the above diagnosis. Case has been reviewed in consultation with Dr. Ricardo who concurs with the above diagnosis. IDC:HALINA MICROSCOPIC DESCRIPTION Slides are reviewed. GROSS DESCRIPTION Received is one container labeled with the patient's name and not further designated. The specimen consists of an irregular piece of soft tissue measuring 3.5 x 4 x 0.2 cm. One surface is smooth. The rest of surface is ragged. No obvious papulation is identified. The entire specimen is submitted in two cassettes. / HALINA:navjot 03/03/19 TC:1 CPT: 27511, 81341
--- NOTE | 2019-02-28 22:19 | PCM.OPRPT ---
Delivery Classification: SANTI Final NICOLE: 03/07/19 Gestational age: 39 Weeks and 0 Days cash applications analyst: Coni Thornton Type of Anesthesia:: Epidural Special Medications: none Implants Used: none Indications: Failed trial of labor, arrest of dilation at 8 cm, LGA fetus, CPD, right ovarian cyst Description of Procedure: Patient arrived in labor and had spontaneous rupture membranes. She went from 6 to 8 cm normally, then had no significant change past 8 cm. In addition, the station remained at -2 and there was significant molding and caput. Despite Pitocin, the patient did not have any significant change past 8 cm. Clinically and based on ultrasound, I suspected that the fetus was LGA. At this point I discussed with the patient that I truly felt she had cephalopelvic disproportion. I offered the patient continued expectant management versus section and patient desired to proceed with the section. Risk benefits and alternatives were discussed and the patient agreed to proceed. The patient was taken to the operating room. She was prepped and draped in the dorsal supine position with a leftward tilt. A Pfannenstiel skin incision was made approximately 2 cm above the symphysis pubis and carried through to underlying layer fascia with the scalpel. The fascia was incised incised in the midline and extended laterally with the Teran scissors. The fascia was dissected off the rectus muscles with blunt and sharp dissection. The rectus muscles were in the midline and the peritoneum was entered bluntly. The peritoneal incision was stretched and the bladder blade was placed. The uterine incision was made in a low transverse fashion with the scalpel and extended superiorly and inferiorly with blunt dissection. The amniotic membranes were ruptured bluntly and clear amniotic fluid returned. The 's head was brought to the incision in the flexed position and delivered without difficulty. The remainder of the infant was delivered with gentle traction and fundal pressure in the standard fashion. The mouth and nares were bulb suctioned. The cord was clamped and cut as the was stimulated. Cord clamping was delayed. The infant was handed off to the waiting nursing staff. The placenta was delivered with fundal massage and gentle traction in the standard fashion. The uterus was exteriorized and cleared of all clots and debris. The uterine incision was closed with #1 Vicryl in a running locked fashion. A second layer of the same suture was used in an imbricating fashion. Single [id number] suture was needed on the left side of the incision to ensure hemostasis. The incision was examined and was found to be hemostatic. There was a 7 cm simple right ovarian cyst. I had noted from her previous op report that the right ovarian cyst had been ruptured during her last surgery but not removed. Decision was made to and now proceed with removal of the cyst. An incision was made across the portion of the cyst that was thinnest and furthest away from the infundibular pelvic ligament. The cyst clear fluid returned. The cyst wall was dissected out carefully. There is a small amount of oozing at the base, a [id number] 3-0 Vicryl suture was placed around this area and hemostasis was noted. Some Surgicel fibrillar was then placed in the ovarian cyst cavity and the ovary carefully placed around it. Hemostasis was noted. The uterus was placed back into the peritoneal cavity and hemostasis was again confirmed. The rectus muscles were examined and any bleeding was Bovie cauterized. The parietal peritoneum and rectus muscles were closed en bloc with an 1 Vicryl running suture. The surgical teams outer gloves were then changed. The rectus fascia was examined and any bleeding was Bovie cauterized and the rectus fascia was closed with 1 Vicryl suture in a running standard fashion. The subcutaneous tissue was examining and any bleeding was Bovie cauterized. The subcutaneous tissue was reapproximated with 3-0 Vicryl suture. The skin was closed in a subcuticular fashion by the FELT PULLER with me present in the labor and delivery suite. I performed the remainder of the procedure with assistance. All sponge, lap, and needle counts were correct. The patient was taken to her room for recovery in a stable condition. Amniotic Membrane Rupture Type: Spontaneous Amniotic Fluid Description: Clear Placenta Disposition: [facility] Specimen(s) sent to pathology: Right ovarian cyst wall Drain: Carrillo to straight drain Cord Entanglement: None Cord Vessel Description: 3 Vessels Esitmated Blood Loss (ml): 900 Infant Gender: Male Delayed cord clamping: Yes Antibiotic Given: Ancef 2 grams IV x1, Zithromax 500 mg/5 mL X1 - Admit VTE Documentation VTE Present on Admission: No VTE Mechan Device Prophylaxis: SCD's VTE Pharm Prophylaxis ordered?: Yes
[2019-02-28 22:45] VITALS: BP 134/59; BP 146/91; PULSE 93; RESP 19; TEMP 36.9; O2SAT 100
[2019-02-28] MEDS: Ketorolac 30 MG/ML Syringe IV (22:45)
[2019-02-28] MEDS: Oxytocin 30 units/NS 500 ml 30 UNITS/500 ML IV.SOLN 167 UNITS IV (22:50)
[2019-02-28 23:00] VITALS: BP 130/74; BP 146/91; PULSE 87; RESP 18; O2SAT 99
[2019-02-28 23:15] VITALS: BP 131/80; BP 146/91; PULSE 93; RESP 18; O2SAT 98
[2019-02-28 23:30] VITALS: BP 126/82; BP 146/91; PULSE 84; RESP 18; O2SAT 97
[2019-02-28 23:45] VITALS: BP 118/60; BP 146/91; PULSE 91; RESP 18; O2SAT 97
[2019-03-01] VITALS (20 sets, daily range): BP systolic 101–146; BP diastolic 53–91; PULSE 18–94; RESP 14–20; TEMP 36.1–36.9; O2SAT 93–100
[2019-03-01 00:38] LABS: Pathology Specimen OB SEE PATHOLOGY REPORT
[2019-03-01] MEDS: Lactated Ringers 1,000 ML 100 ML IV ×2 (02:10→11:18)
--- NOTE | 2019-03-01 02:17 | NURSING ---
epidural catheter removed and blue tip intact
[2019-03-01] MEDS: Ketorolac 30 MG/ML Syringe IV ×3 (04:52→17:57)
[2019-03-01] MEDS: 0.9% Saline Lock 10 ML Syringe 5 ML IV ×2 (04:53→20:48)
[2019-03-01 05:22] LABS: Hematocrit 29.9 % (37-47); Hemoglobin 9.5 g/dL (12.0-15.0); Mean Corp Hgb Conc 31.8 g/dL (32-36); Mean Corpuscular Hgb 25.3 pg (27.0-32.0); Mean Corpuscular Volume 79.7 fL (81-99); Mean Platelet Vol. 10.7 fl (6.2-12.0); POSITIVE MORPHOLOGY YES; Platelet Count 174 K/mm3 (150-450); RBC Distribution Width CV 20.4 % (11.6-14.6); RBC Distribution Width SD 59.5 fl (35.1-43.9); Red Blood Count 3.75 M/mm3 (4.2-5.4); White Blood Count 9.7 K/mm3 (4.4-11.0)
[2019-03-01 05:34] LABS: Scan Indicated on CBC? Y/N YES- FLAGS NOTED
[2019-03-01] MEDS: Senna/Docusate Sodium 1 Tablet PO ×2 (08:55→23:08)
--- NOTE | 2019-03-01 18:09 | PCM.PN.OB ---
Subjective: Average lochia. Pain well controlled. No N/V. Lexa. regular diet. - Physical Exam General: Alert, Cooperative, No apparent distress Abdomen: Soft, Distended - moderately, softly, Tender - appropriately Extremities: Edema - 2+ Skin: Incision - Bandage clean, dry and intact Vital Signs Temp Pulse Resp BP Pulse Ox 98.2 F 83 18 114/66 99 03/01/19 16:30 03/01/19 17:00 03/01/19 17:00 03/01/19 16:30 03/01/19 17:00 Oxygen Delivery Method Room Air Weight: 103.9 kg Body Mass Index (BMI) 41.8 Intake and Output for Last 24 Hours 02/27/19 02/28/19 03/01/19 23:59 23:59 23:59 Intake Total 4185.17 / 4185.17 3113.33 / 3113.33 Output Total 1700 / 1700 625 / 625 Balance 2485.17 / 2485.17 2488.33 / 2488.33 Laboratory Tests Past 24 Hrs 03/01/19 05:00 WBC 9.7 RBC 3.75 L Hgb 9.5 L Hct 29.9 L MCV 79.7 L MCH 25.3 L MCHC 31.8 L RDW Std Deviation 59.5 H RDW Coeff of Kel 20.4 H Plt Count 174 MPV 10.7 Differential Comment Medical Necessity - Tobacco Use Smoking Status: Never smoker Assessment/Plan All Active Problems (Last Reviewed 09/12/17 @ 09:45 by Alison John) Right upper quadrant pain (Acute) History of (Acute) History of tonsillectomy (Acute) Cholelithiasis (Acute) POD#1 s/p repeat c/s doing well routine care
[2019-03-02] MEDS: oxyCODONE 5 MG Tablet PO (00:19)
[2019-03-02] MEDS: Ketorolac 30 MG/ML Syringe IV ×4 (00:19→19:58)
[2019-03-02] MEDS: 0.9% Saline Lock 10 ML Syringe 5 ML IV ×4 (00:48→19:58)
[2019-03-02 02:35] VITALS: BP 112/61; PULSE 87; RESP 18; TEMP 37.2; O2SAT 96
[2019-03-02] MEDS: Enoxaparin 40 MG/0.4 ML Syringe SC (05:52)
[2019-03-02 09:45] VITALS: BP 134/72; PULSE 90; RESP 16; TEMP 37.2
--- NOTE | 2019-03-02 10:20 | PCM.PN.OB ---
Subjective: Doing well per patient and nursing staff. Ambulating and taking PO without difficulty. Voiding and had bowel movement. Pain controlled. with formula supplementation, working with and using nipple shield. Denies any chest pain, SOB, increased vaginal bleeding or clots. No leg pain or other concerns. Requesting discharge home tomorrow. - Physical Exam General: Alert, Oriented x3, Cooperative HEENT: Atraumatic, Normocephalic Neck: Trachea Midline Lungs: Clear to auscultation, Normal air movement, No rhonchi, No wheeze Cardiovascular: Regular rate, Regular Rhythm, No murmurs Abdomen: Bowel Sounds Present, Soft, - - appropriately tender. Fundus firm below U. Dressing dry and intact. Extremities: No edema, - - Trisha's negative bilaterally Psych/Mental Status: Normal Affect, Appropriate Vital Signs Temp Pulse Resp BP Pulse Ox 99 F 90 16 134/72 H 96 03/02/19 09:45 03/02/19 09:45 03/02/19 09:45 03/02/19 09:45 03/02/19 02:35 Oxygen Delivery Method Room Air Weight: 229 lb 0.964 oz Body Mass Index (BMI) 41.8 Intake and Output for Last 24 Hours 02/28/19 03/01/19 03/02/19 23:59 23:59 23:59 Intake Total 4185.17 / 4185.17 4065.00 / 4065.00 Output Total 1700 / 1700 1125 / 1125 900 / 900 Balance 2485.17 / 2485.17 2940.00 / 2940.00 -900 / -900 Medical Necessity - Tobacco Use Smoking Status: Never smoker Assessment/Plan All Active Problems (Last Reviewed 09/12/17 @ 09:45 by Alison John) Right upper quadrant pain (Acute) History of (Acute) History of tonsillectomy (Acute) Cholelithiasis (Acute) A:POD #2 Repeat LTCS with formula supplementation Blood loss anemia P: 1) Routine care 2) services for support 3) Repeat H&H today 4) Planning D/C home tomorrow
[2019-03-02] MEDS: Docusate Sodium 100 MG Capsule PO (10:48)
[2019-03-02 11:07] LABS: Absolute Lymphocyte Count 1.22 X10^3/uL (0.83-4.51); Basophil# 0.02 X10^3/uL; Basophil% 0.3 % (0-1); Eosinophil# 0.11 X10^3/uL; Eosinophils% 1.4 % (0-5); Hemoglobin 9.4 g/dL (12.0-15.0); Lymphocyte # 1.22 X10^3/ul (4.0); Lymphocyte % 15.5 % (19-41); Mean Corp Hgb Conc 32.4 g/dL (32-36); Mean Corpuscular Hgb 25.9 pg (27.0-32.0); Mean Corpuscular Volume 79.9 fL (81-99); Mean Platelet Vol. 10.1 fl (6.2-12.0); Monocyte# 0.43 X10^3/uL; Monocyte% 5.5 % (0-10); NRBC Flagged by Analyzer 0 % (0-5); Neutrophil # 6.03 X10^3/uL (2.7-7.7); Neutrophil % 76.5 % (47-70); POSITIVE MORPHOLOGY YES; Platelet Count 191 K/mm3 (150-450); RBC Distribution Width CV 20.4 % (11.6-14.6); RBC Distribution Width SD 59.7 fl (35.1-43.9); Red Blood Count 3.63 M/mm3 (4.2-5.4); White Blood Count 7.9 K/mm3 (4.4-11.0)
[2019-03-02 11:08] LABS: Differential Indicated SCAN CRITERIA MET
[2019-03-02 11:46] LABS: Anisocytosis 1+; Hypochromasia RARE; Microcytosis RARE
[2019-03-02] MEDS: Acetaminophen 500 MG Tablet 1000 MG PO ×2 (13:21→21:44)
[2019-03-02 13:35] VITALS: BP 108/68; PULSE 107; RESP 18; TEMP 36.9
[2019-03-02 20:33] VITALS: BP 135/72; PULSE 82; RESP 17; TEMP 36.9; O2SAT 99
[2019-03-03] MEDS: oxyCODONE 5 MG Tablet PO ×2 (00:03→07:09)
[2019-03-03 01:35] VITALS: BP 120/53; PULSE 77; RESP 16; TEMP 37.1; O2SAT 98
[2019-03-03] MEDS: Enoxaparin 40 MG/0.4 ML Syringe SC (06:30)
[2019-03-03] MEDS: Ibuprofen 600 MG Tablet PO (07:09)
--- NOTE | 2019-03-03 08:02 | PN.OBGYN_ITS ---
Subjective: She is seen at bedside doing well. Patient reports good pain control. Mild lochia. Bottlefeeding. Denies any nausea, vomiting. Patient reports positive bowel movement and voiding without difficulty. - Physical Exam General: Alert, Oriented x3 Abdomen: Soft, Non-Distended, - - Fundus firm. Incision dressing dry and intact. Extremities: No Calf Tenderness Vital Signs Temp Pulse Resp BP Pulse Ox 98.7 F 77 16 120/53 L 98 03/03/19 01:35 03/03/19 01:35 03/03/19 01:35 03/03/19 01:35 03/03/19 01:35 Oxygen Delivery Method Room Air Weight: 103.9 kg Body Mass Index (BMI) 41.8 Intake and Output for Last 24 Hours 03/01/19 03/02/19 03/03/19 23:59 23:59 23:59 Intake Total 4065.00 / 4065.00 Output Total 1125 / 1125 900 / 900 Balance 2940.00 / 2940.00 -900 / -900 Laboratory Tests Past 24 Hrs 03/02/19 10:50 WBC 7.9 RBC 3.63 L Hgb 9.4 L Hct 29.0 L MCV 79.9 L MCH 25.9 L MCHC 32.4 RDW Std Deviation 59.7 H RDW Coeff of Kel 20.4 H Plt Count 191 MPV 10.1 Immature Gran % (Auto) 0.800 Neut % (Auto) 76.5 H Lymph % (Auto) 15.5 L [place] % (Auto) 5.5 Eos % (Auto) 1.4 Baso % (Auto) 0.3 Absolute Neuts (auto) 6.0 Absolute Lymphs (auto) 1.22 Nucleated RBC % 0 Hypochromasia RARE Anisocytosis 1+ Microcytosis RARE Medical Necessity - Tobacco Use Smoking Status: Never smoker Assessment/Plan All Active Problems (Last Reviewed 09/12/17 @ 09:45 by Alison John) Right upper quadrant pain (Acute) History of (Acute) History of tonsillectomy (Acute) Cholelithiasis (Acute) Stop day #3, doing well Routine care Pain management DC home today
--- NOTE | 2019-03-03 08:07 | DCINST_ITS ---
Discharge Diet: No Restrictions Discharge Activity: Return to Normal Activity, May Not Drive - for 2 weeks, May not drive while taking narcotic pain medications., May Shower, May Take a Tub Bath - in 7 days. May resume sexual activity in: 4-6 weeks Lifting Restrictions: 20 pounds Additional Activity Instructions:: Nothing in the vagina for 4-6 weeks. You may return to work/school in 6 weeks. Call your doctor if your incision/area has: Continuous Slow Oozing, Sudden Increased Bleeding, Increased Pain/ Swelling, Increased Redness, Foul Smelling Discharge Call your doctor if you observe: Fever of 101 or Higher, Using more than one pad per hour - for 2 hours Suture Line Care: Avoid Pulling/Pushing, Avoid Pinching/Bending Cleanse incision/area with: Keep Dressing Clean & Dry Additional Instructions: If you experience any of the following, contact your healthcare provider. * Bleeding that soaks a pad every hour for 2 hours * Fever 100.4 or higher * Unrelieved incision or abdominal pain * Swelling, redness, discharge or bleeding from your incision or episiotomy site * Your incision begins to separate * Problems urinating (including inability to urinate or burning while urinating). * Visual changes * Severe headache * Flu-like symptoms * Pain or redness in one of both of your breasts * Pain, warmth, tenderness or swelling in your legs, especially the calf area * Frequent nausea and vomiting * Symptoms of depression or anxiety If you experience any of the following, call 911 or go to the nearest Emergency Room. * Chest pain * Problems breathing * Seizure activity * Partial or complete paralysis of a body part, slurred speech, weakness or drooping of the face, or a sudden inability to walk or hold your balance Allergies/Adverse Reactions: Allergies No Known Allergies Allergy (Verified 02/28/19 10:16) Medications to take at Discharge Albuterol Inhaler [Ventolin Hfa] 2 puff INHALATION Q4H PRN PRN #1 inhaler 11/10/18 Pnv No.103/Folic/Om3s/Fish Oil [ Gummies] 1 each PO DAILY 11/10/18 Docusate Sodium [Colace] 100 mg PO BID #20 cap 03/03/19 Ibuprofen [Motrin] 600 mg PO Q6H PRN PRN #60 tab 03/03/19 Oxycodone HCl/Acetaminophen [Percocet 5/325] 1 tab PO Q6H PRN PRN 7 Days #20 tab 03/03/19 SimETHICONE [Mylicon] 80 mg PO PCHS PRN #30 tab 03/03/19 The following prescriptions were given: Docusate Sodium [Colace] 100 mg PO BID #20 cap Transmission Status: Pending to [facility] Ibuprofen [Motrin] 600 mg PO Q6H PRN PRN #60 tab PRN Reason: Mild Pain (-09/07) Transmission Status: Pending to [facility] SimETHICONE [Mylicon] 80 mg PO PCHS PRN #30 tab PRN Reason: Indigestion/stomach pain Transmission Status: Pending to [facility] Oxycodone HCl/Acetaminophen [Percocet 5/325] 1 tab PO Q6H PRN PRN 7 Days #20 tab PRN Reason: Pain Prescription Printed Follow-Up: Call to make an appointment with your doctor for an incision check in 1-2 weeks. You will also need a 6 week post- follow up appointment. Test results from this visit will be discussed in further detail at your follow- up appointment, if applicable. Please Follow Up With: Libia Wyatt MD - Call to make an appointment for an incision check in 1-2 [phone] When: You will need a post- check in 6 weeks. Primary Care Physician: Care Physician,No Primary [Primary Care Provider] -
--- NOTE | 2019-03-03 08:08 | PCM.DC.BLA ---
Discharge Summary Date of Admission: 02/28/19 Date of Discharge: 03/03/19 Summary: Presented to [facility] labor and delivery on 02/28/2019 in active labor. Patient has a history of a previous section and wanted to trial of labor. Patient ultimately had arrest of dilation 8 cm. Underwent a repeat low transverse section without complication. And delivered an LGA weighing approximately 9 pounds 11 ounces. Patient had an uncomplicated postoperative course discharged home on postoperative day #3 in stable condition. - Physical Exam Vital Signs Temp Pulse Resp BP Pulse Ox 98.7 F 77 16 120/53 L 98 03/03/19 01:35 03/03/19 01:35 03/03/19 01:35 03/03/19 01:35 03/03/19 01:35 Oxygen Delivery Method Room Air Weight: 103.9 kg Body Mass Index (BMI) 41.8 Intake and Output for Last 24 Hours 03/01/19 03/02/19 03/03/19 23:59 23:59 23:59 Intake Total 4065.00 / 4065.00 Output Total 1125 / 1125 900 / 900 Balance 2940.00 / 2940.00 -900 / -900 Laboratory Tests Past 24 Hrs 03/02/19 10:50 WBC 7.9 RBC 3.63 L Hgb 9.4 L Hct 29.0 L MCV 79.9 L MCH 25.9 L MCHC 32.4 RDW Std Deviation 59.7 H RDW Coeff of Kel 20.4 H Plt Count 191 MPV 10.1 Immature Gran % (Auto) 0.800 Neut % (Auto) 76.5 H Lymph % (Auto) 15.5 L [place] % (Auto) 5.5 Eos % (Auto) 1.4 Baso % (Auto) 0.3 Absolute Neuts (auto) 6.0 Absolute Lymphs (auto) 1.22 Nucleated RBC % 0 Hypochromasia RARE Anisocytosis 1+ Microcytosis RARE
[2019-03-03 08:12] VITALS: BP 122/68; PULSE 75; RESP 16; TEMP 36.6; O2SAT 98
--- NOTE | 2019-03-03 11:34 | CASEMGMT ---
Social Work Assessment Labor and Delivery Unit Date of Referral: 03/01/2019 Time of Referral: 0633; 1806 Referred By: Dr. Conor Rojo; Dr. Jerel Broussard Date of Intervention: 03/03/2019 Time of Intervention: 1030 Reason for Referral: maternal history of depression and anxiety History obtained from: medical records, mother of baby (MOB) Beatrice De Oliveira, and father of baby (FOB) Gunnar Allen Household composition: MOB, FOB and older son live together. Home situation is reported to be safe and adequate. Plans to take baby to this home. Patient's parent/guardian status: MOB is 24 year old female to FOB. MOB and FOB now have 2 children together. , Abdirahman Allen born on [birth year]2019 and sone Sin Allen who was born on 08[birth year]06[birth year]2017. No reports of or indication of any safety concerns at home or in relationship with FOB. Medical History: MOB is G2, P1 to 2 after delivery of Abdirahman. care started early at 5 weeks gestation. MOB with history of preeclampsia and induction at 34 weeks for Sin who as 6 pounds 6 ounces at 34 weeks gestation. [place] baby Abdirahman delivered 39 weeks, Apgars 8 and 9 at 1 and 5 minutes of life. Abdirahman weighed 9 pounds 11 ounces at . Educational Status: MOB graduated high school and reports to be able to read, write, and to understand what is read. Financial Status: FOB works fulltime at the [employer] on first shift. Infant Supplies: Reported to have all needed supplies including car seat and safe sleep space. MOB reports to be providing both breast milk and formula, and that SAM's grandmother purchased from formula to get started. Childcare/Caregiver(s): MOB and then help from FOB. Transportation: No issues reported indicated. Programs/Agencies Involved: Involved with S for food and medical. MOB plans to get a hold of [facility]. MOB and FOB report receptivity to referral to [facility]. Children Services/Legal Issues: Denies legal issues. Denies past or present involvement with children services. Behavioral Health Issues: Mental Health History: MOB reports history of depression and anxiety, with some depression and anxiety lasting for a few weeks after Sin came home from the NICU. MOB endorses a difficult delivery and NICU stay with Sin as stressors during that time. FOB reports Sin was not the best eater at first, so this also caused some stress. MOB reports symptoms for MOB included sadness, anxiety,and irritability. Denies any history of suicidal thoughts, plans, intent, or attempts. No thoughts to harm others endorsed. MOB reports has tried medicine in the past, Zoloft and Celexa but feels that neither medication worked for MOB. MOB reports has been in counseling at [facility] as a teen and as an adult and that does not really care for counseling. Substance Use History: MOB denies drug or alcohol use or abuse. Family History: FOB admits to some depression and stress after Sin was born. MOB reports in her family there is a history of depression and anxiety and possibly undiagnosed Bipolar disorder in some family members. Drug Screens: maternal screen negative on 07.08.2018. Family/Social Stressors: No stressors identified during this . accepted and MOB reports to be bonding with this baby. MOB reports concern for depression in the period, but does not currently endorse feeling that mediation is needed at this point, but possibly in the future. Support Systems: MOB reports FOSandra is a good support, and will be home for the next week to help MOB with transition home. MOB reports that her mother and grandmother live in walking distance to MOB and FOB, and that both women are very supportive. FOB concurs about having adequate family support. ASSESSMENT: Met with MOB and FOB together. MOB ready for discharge but agreeable to stay and talk to social insurance specialist before leaving. MOB reports history of depression, anxiety,and mood and anxiety issues. Reports insight into being at risk again and possibility of needing to consider medication in the future. MOB prefers to try medicine over counseling. MOB denies to feel a need fo medicine at this time. MOB reports could talk to FOB, mother, and grandmother if symptoms arise. MOB reports to feel that is bonding with the baby, to have adequate help at home, and to have supplies to care for the baby. MOB accepting of information offered by this senior technical writer. FOB engaged in conversation when prompted by social insurance specialist, presented as respectful to MOB. FOB reports also be to excited for another child. No concerns voiced by nursing staff regarding mother/child interactions. Intervention: Resource list for [facility] provided, depression packet with resources provided, and [facility] referral submitted via the [facility]'s secure web based referral system as per verbal consent from MOB and FOB. PLAN: MOB and baby to home. MOB reports plan to apply for WIC. [facility] referral in place. MOB Accepted depression packet and education on resources for said topic. Accepted resource list of social service agencies in [facility]. No other services requested or indicated. -ADELAIDA Grant, TRAFFIC RECORDER
== END 2019-03-03 10:35 | disposition home or self-care (01) | DRG 540 ==
LOC: WPOUT 12:21
PROVIDERS: Advanced Practice Midwife; Admitting Provider Obstetrics & Gynecology; Referring Provider Obstetrics & Gynecology; Visit Provider Obstetrics & Gynecology
DX: O66.41 Failed attempted vaginal birth after previous cesarean delivery (principal); Z3A.39 39 weeks gestation of pregnancy; Z37.0 Single live birth; O62.0 Primary inadequate contractions; O34.219 Maternal care for unspecified type scar from previous cesarean delivery; E66.9 Obesity, unspecified; O99.210 Obesity complicating pregnancy, unspecified trimester; O34.83 Maternal care for other abnormalities of pelvic organs, third trimester; N83.291 Other ovarian cyst, right side; O99.513 Diseases of the respiratory system complicating pregnancy, third trimester; J45.909 Unspecified asthma, uncomplicated
CPT/HCPCS: 59025; 59050; 84112; 85025; 85027; 86850; 86900; 86901; 88305; 88313; 99218; J7120; A4216; G0378; J2405

== ENCOUNTER 2020-03-14 09:28 | Emergency (ER) | payer MEDICAID, SELFPAY ==
[2020-03-14 09:30] VITALS: BP 129/77; PULSE 92; RESP 17; TEMP 36.6; O2SAT 99; BMI 42.0
--- NOTE | 2020-03-14 09:59 | ED.VIS.BACK ---
History of Present Illness Chief Complaint: Back Informant: Patient Onset: Days - 3 Context: - - awoke w/ sx Injury: - - none known Timing: Continuous Quality: Aching Location: Lumbar Current Severity: Moderate Maximum Severity: Severe Worsened by: improves with: Movement - and changing position, Bending Relieved by: Remaining Still Associated Symptoms: - - Some urinary symptoms. No radiation to the legs, abdomen, no numbness, tingling, weakness. Narrative: Has had worsening low back discomfort nonlateralizing for the past couple days. No known injury or overuse that she can think of. She also has had some mild dysuria at times, along with frequency, urgency, and trouble starting a stream of urine. No abdominal pain, nausea, vomiting, diarrhea, bright red blood per rectum, or fevers/chills. - Past Medical History (1) Asthma Status: Chronic Past Medical History - Allergies and Home Meds Allergies/Adverse Reactions: Allergies No Known Allergies Allergy (Verified 03/14/20 09:30) Primary Care Physician: Care Physician,No Primary [Primary Care Provider] - Surgical History: cholecystectomy, - - and tonsillectomy Smoking Status: Never smoker Review of Systems General: Denies: Chills, Fever, Sweats Eyes: Denies: Visual changes - bilaterally, Diplopia ENT: Denies: Rhinorrhea, Sore throat Cardiovascular: Denies: Chest pain, Palpitations Respiratory: Denies: Dyspnea, Cough, Dyspnea on exertion Gastrointestinal: Denies: Abdominal pain, Nausea, Vomiting, Diarrhea, Melena, Hematochezia Genitourinary: Reports: Dysuria, Frequency. Denies: Hematuria Musculoskeletal: Reports: Back pain. Denies: Myalgias, Neck pain, Swelling, Extremity Pain Skin: Denies: Rash, Wounds Neurological: Denies: Headache, Weakness, Numbness Physical Exam Vital Signs/Narrative: Vital Signs Temp Pulse Resp BP Pulse Ox 03/14/20 09:30 97.8 F 92 17 129/77 H 99 Inital Vital Signs reviewed: Yes General: Well nourished, Well developed, Obese, - - Well-appearing in no distress Head: Normocephalic, Atraumatic Eyes: Perrl, EOMI ENT: Moist mucous membranes, No rhinorrhea Neck: Supple, Nontender Cardiovascular: Regular rate, Regular rhythm, No murmurs Respiratory: No distress, CTA bilaterally, Chest nontender Abdomen: Soft, Nontender, Nondistended, Normal bowel sounds Back: Normal Inspection - Without rash, Paraspinal Tenderness - Bilateral paraspinal lumbosacral without midline tenderness, Negative SLR - Right, Negative SLR - Left. Negative for: Spinal tenderness Extremeties: Nontender, No edema, Strong Pulses, Symmetric Skin: Normal color, No rash, No Trauma Neuro: Alert, Oriented, Normal Strength, Normal Sensation, Normal DTR, Normal Gait Psychological: Normal affect, Normal Mood Diagnostic/Tx/Re-eval Laboratory Tests 03/14/20 Range/Units 10:05 Urine Color Straw (Yellow) Urine Clarity Clear (Clear) Urine pH 6.0 (5.0 - 8.0) Ur Specific [place] 1.020 (1.002-1.030) Urine Protein Negative (Negative) mg/dl Urine Glucose (UA) Normal (Normal) mg/dl Urine Ketones Negative (Negative) mg/dl Urine Occult Blood Negative (Negative) /ul Urine Nitrite Negative (Negative) Urine Bilirubin Negative (Negative) mg/dL Urine Urobilinogen Normal (Normal) mg/dl Ur Leukocyte Esterase 25 H (Negative) /ul Urine RBC 0 SEEN (0-5) /hpf Urine WBC 0-5 SEEN (0-5) /hpf Ur Squamous Epith Cells 5-10 SEEN (5-10) /hpf Urine Bacteria 1+ (None Seen) /hpf Urine Mucus 0 SEEN (<or=2+) /hpf Urine Test Negative Negative - Medical Decision Making Patient's urine shows no infection. Her back discomfort is more consistent with musculoskeletal etiology on history and exam. She has no signs or symptoms of radiculopathy. At this time supportive care is advised. We will give her prescription for analgesics, she is not much better after Toradol here, follow-up encouraged. OARRS reviewed, negative. Rx'd naproxen and tramadol. ED Disposition - Plan for ED Patient: Disposition: Home or Assisted Living Diagnosis: Musculoskeletal back pain Instructions: ED Back Pain Acute or Chronic Prescriptions: Naproxen [Naprosyn] 500 mg PO BID PRN #20 tab Transmission Status: Pending to [facility] traMADol [Ultram] 50 mg PO Q4H PRN PRN 2 Days #12 tablet PRN Reason: Pain Transmission Status: Received by [facility] Referrals: Misael Felton, [STAFF PHYSICIAN] - 1 Week if not improving
[2020-03-14] MEDS: Ketorolac 60 MG/2 ML Vial IM (10:07)
[2020-03-14 10:19] LABS: Mucous, Urine 0 SEEN /hpf (<or=2+); Red Blood Cells-Urine 0 SEEN /hpf (0-5)
[2020-03-14 10:31] LABS: Color, Urine Straw (Yellow); Glucose, Dipstick Normal (Normal); Ketone-Dipstick Negative (Negative); Leukocyte Esterase-Dipstick 25 /ul (Negative); Nitrite-Dipstick Negative (Negative); Occult Blood-Urine Negative /ul (Negative); Protein-Dipstick Negative (Negative); Urine Bilirubin Dipstick Negative (Negative); Urine Clarity Clear (Clear); Urine Urobilinogen Normal (Normal)
[2020-03-14 10:38] LABS: Internal QC Validated? YES +Cl - CLEAR BKGD; Pregnancy, Urine Negative Negative
[2020-03-14 10:46] LABS: Bacteria 1+ /hpf (None Seen); Squamous Epithelial Cells - UA 5-10 SEEN /hpf (5-10); White Blood Cells 0-5 SEEN /hpf (0-5)
[2020-03-14 11:18] VITALS: RESP 18
== END 2020-03-14 11:20 | disposition home or self-care (01) ==
PROVIDERS: Emergency Provider Emergency Medicine
DX: M54.9 Dorsalgia, unspecified (principal); R30.0 Dysuria; R39.15 Urgency of urination; R35.0 Frequency of micturition; E66.9 Obesity, unspecified; J45.909 Unspecified asthma, uncomplicated; Z90.49 Acquired absence of other specified parts of digestive tract
CPT/HCPCS: 81001; 81025; 96372; 99282

== ENCOUNTER 2020-06-17 20:10 | Emergency (ER) | payer MEDICAID, SELFPAY ==
[2020-06-17 20:11] VITALS: BP 151/81; PULSE 86; RESP 15; TEMP 35.5; O2SAT 100; BMI 40.2
--- NOTE | 2020-06-17 20:22 | ED.DCSUM_ITS ---
History of Present Illness Chief Complaint: Complaint Informant: Patient Onset: Yesterday Current Severity: Moderate Maximum Severity: Moderate Narrative: Patient presents with back pain as well as dysuria and urgency. She states she developed symptoms yesterday. She has bilateral lower back pain that wraps around to her abdomen. She does report a history of kidney stones as well as ovarian cyst but states this pain does not feel similar. She did note some blood with wiping today but did not note blood in her urine. Last menstrual cycle was the end of May. - Past Medical History (1) Kidney stones Status: Resolved (2) Ovarian cyst Status: Resolved (3) Asthma Status: Chronic Past Medical History - Allergies and Home Meds Allergies/Adverse Reactions: Allergies No Known Allergies Allergy (Verified 06/17/20 20:12) Primary Care Physician: Care Physician,No Primary [NON-STAFF] - Surgical History: cholecystectomy, - - and tonsillectomy Lives: With Family Smoking Status: Never smoker Review of Systems General: Reports: Chills. Denies: Fever Eyes: Denies: Visual changes - bilaterally ENT: Denies: Bilateral ear pain Cardiovascular: Denies: Chest pain Respiratory: Denies: Dyspnea, Cough Gastrointestinal: Reports: Abdominal pain. Denies: Vomiting Genitourinary: Reports: Dysuria, Frequency Musculoskeletal: Reports: Back pain Skin: Denies: Rash Neurological: Denies: Headache Hematologic: Denies: Easy bruising, Easy bleeding Allergy: Denies: Uticaria Physical Exam Vital Signs/Narrative: Vital Signs Temp Pulse Resp BP Pulse Ox 06/17/20 20:11 96 F L 86 15 151/81 H 100 Inital Vital Signs reviewed: Yes General: Well nourished, Well developed Head: Normocephalic ENT: Moist mucous membranes Neck: Supple Cardiovascular: Regular rate, Regular rhythm Respiratory: No distress, CTA bilaterally Abdomen: Soft, Nontender Back: CVA tenderness - Right CVA tenderness, - - Bilateral lower lumbar paraspinal tenderness. Extremities: Nontender Skin: Normal color Neurological: Alert, Oriented x3 Psychological: Normal affect Diagnostic/Tx/Re-eval Laboratory Results 06/17/20 06/17/20 06/17/20 20:35 20:35 20:35 WBC 12.8 H RBC 5.17 Hgb 12.0 Hct 38.7 MCV 74.9 L MCH 23.2 L MCHC 31.0 L RDW Std Deviation 41.8 RDW Coeff of Kel 15.5 H Plt Count 400 MPV 10.1 Immature Gran % (Auto) 0.400 Neut % (Auto) 74.8 H Lymph % (Auto) 18.5 L [place] % (Auto) 4.1 Eos % (Auto) 1.9 Baso % (Auto) 0.3 Absolute Neuts (auto) 9.6 H Absolute Lymphs (auto) 2.37 Nucleated RBC % 0 Sodium 140 Potassium 3.7 Chloride 107 Carbon Dioxide 28.0 Anion Gap 5 BUN 13 Creatinine 0.79 Estim Creat Clear Calc 86.10 Est GFR (MDRD) Af Amer 114 Est GFR (MDRD) Non-Af 94 BUN/Creatinine Ratio 16.5 Glucose 83 Calcium 8.9 Serum , Qual NEGATIVE Urine Color Urine Clarity Urine pH Ur Specific [place] Urine Protein Urine Glucose (UA) Urine Ketones Urine Occult Blood Urine Nitrite Urine Bilirubin Urine Urobilinogen Ur Leukocyte Esterase Urine RBC Urine WBC Ur Squamous Epith Cells Amorphous Sediment Urine Bacteria Urine Mucus 06/17/20 21:16 WBC RBC Hgb Hct MCV MCH MCHC RDW Std Deviation RDW Coeff of Kel Plt Count MPV Immature Gran % (Auto) Neut % (Auto) Lymph % (Auto) [place] % (Auto) Eos % (Auto) Baso % (Auto) Absolute Neuts (auto) Absolute Lymphs (auto) Nucleated RBC % Sodium Potassium Chloride Carbon Dioxide Anion Gap BUN Creatinine Estim Creat Clear Calc Est GFR (MDRD) Af Amer Est GFR (MDRD) Non-Af BUN/Creatinine Ratio Glucose Calcium Serum , Qual Urine Color Yellow Urine Clarity Cloudy Urine pH 6.0 Ur Specific [place] 1.025 Urine Protein 100 H Urine Glucose (UA) Normal Urine Ketones 5 H Urine Occult Blood 250 H Urine Nitrite Negative Urine Bilirubin Negative Urine Urobilinogen Normal Ur Leukocyte Esterase 500 H Urine RBC 25-50 SEEN Urine WBC 50-100 SEEN Ur Squamous Epith Cells 0-5 SEEN Amorphous Sediment 1+ URATE Urine Bacteria RARE Urine Mucus 0 SEEN - Medical Decision Making Patient was given Toradol for pain. On repeat evaluation she does have some improvement in her symptoms. Test results are discussed with her. Urine does show significant white cells with rare bacteria. She does have frequency and urgency along with dysuria. She will be treated with Bactrim for 3 days. I did ask her about any concern for STD. She states she does have some discharge but feels that it is consistent with normal hormonal changes as her. Is getting ready to start. We will send GC and chlamydia from her urine and if either of these are positive she will be called in treated appropriately. She voices understanding and agreement. ED Disposition - Plan for ED Patient: Disposition: Home or Assisted Living Diagnosis: Cystitis Instructions: ED Bladder Infection, Female (Adult) Prescriptions: Smz/Tmp Ds [Bactrim Ds] 1 tab PO BID #6 tab Transmission Status: Pending to [id number] Referrals: Malvin Bolaños MD [STAFF PHYSICIAN] - As Needed
[2020-06-17] MEDS: 0.9% Normal Saline 1,000 ML 1000 ML IV (20:33)
[2020-06-17] MEDS: Ketorolac 30 MG/ML Syringe IV (20:33)
[2020-06-17 20:51] LABS: Absolute Lymphocyte Count 2.37 X10^3/uL (0.83-4.51); Absolute Neutrophil Count 9.6 X10^3/uL (2.0-7.7); Basophil# 0.04 X10^3/uL; Basophil% 0.3 % (0-1); Eosinophil# 0.24 X10^3/uL; Eosinophils% 1.9 % (0-5); Hematocrit 38.7 % (37-47); Lymphocyte # 2.37 X10^3/ul (4.0); Lymphocyte % 18.5 % (19-41); Mean Corpuscular Hgb 23.2 pg (27.0-32.0); Mean Corpuscular Volume 74.9 fL (81-99); Mean Platelet Vol. 10.1 fl (6.2-12.0); Monocyte# 0.53 X10^3/uL; Monocyte% 4.1 % (0-10); NRBC Flagged by Analyzer 0 % (0-5); Neutrophil # 9.55 X10^3/uL (2.7-7.7); Neutrophil % 74.8 % (47-70); Platelet Count 400 K/mm3 (150-450); RBC Distribution Width CV 15.5 % (11.6-14.6); RBC Distribution Width SD 41.8 fl (35.1-43.9); Red Blood Count 5.17 M/mm3 (4.2-5.4); White Blood Count 12.8 K/mm3 (4.4-11.0)
[2020-06-17 21:04] LABS: Internal QC Validated? YES +Cl - CLEAR BKGD; Pregnancy, Serum, hCG Quali. NEGATIVE Negative
[2020-06-17 21:05] LABS: Anion Gap 5 (5-15); BUN 13 mg/dL (7-18); BUN/Creat Ratio 16.5 RATIO (10-20); Calcium,Total 8.9 mg/dL (8.5-10.1); Chloride 107 mmol/L (98-107); Creatinine, Serum 0.79 mg/dL (0.55-1.02); EST Glomerular Filtration Rate 94 mL/min (>60); Est Glom Filt Rate - Afr Amer 114 mL/min (>60); Glucose 83 mg/dL (74-106); Potassium 3.7 mmol/L (3.5-5.1); Sodium Level 140 mmol/L (136-145)
[2020-06-17 21:30] LABS: Mucous, Urine 0 SEEN /hpf (<or=2+)
[2020-06-17 21:34] LABS: Color, Urine Yellow (Yellow); Glucose, Dipstick Normal (Normal); Ketone-Dipstick 5 mg/dl (Negative); Leukocyte Esterase-Dipstick 500 /ul (Negative); Nitrite-Dipstick Negative (Negative); Occult Blood-Urine 250 /ul (Negative); Protein-Dipstick 100 mg/dl (Negative); Specific Gravity, Urine 1.025 (1.002-1.030); Urine Bilirubin Dipstick Negative (Negative); Urine Clarity Cloudy (Clear); Urine Urobilinogen Normal (Normal)
[2020-06-17 21:38] LABS: Amorphous Sediment 1+ URATE; Bacteria RARE /hpf (None Seen); Red Blood Cells-Urine 25-50 SEEN /hpf (0-5); Squamous Epithelial Cells - UA 0-5 SEEN /hpf (5-10); White Blood Cells 50-100 SEEN /hpf (0-5)
[2020-06-17] MEDS: Smz/Tmp Ds Tablet 1 TABLET PO (22:02)
[2020-06-17 22:03] VITALS: BP 138/86; PULSE 91; RESP 16; O2SAT 99
[2020-06-17 23:57] LABS: Chlamydia Trachomatis by PCR Negative (Negative); Neisserai gonorrhoeae by PCR Negative (Negative)
[2020-06-17 23:58] LABS: Probe Check PASS; Sample Adequacy Control PASS; Specimen Processing Control PASS
== END 2020-06-17 22:10 | disposition home or self-care (01) ==
PROVIDERS: Emergency Provider Emergency Medicine
DX: N30.90 Cystitis, unspecified without hematuria (principal); J45.909 Unspecified asthma, uncomplicated; Z87.442 Personal history of urinary calculi; Z90.49 Acquired absence of other specified parts of digestive tract
CPT/HCPCS: 80048; 81001; 84703; 85025; 87491; 87591; 96361; 96374; 99284; J7030; A4216

== ENCOUNTER 2020-11-01 20:15 | Emergency (ER) | payer MEDICAID, SELFPAY ==
[2020-11-01 20:16] VITALS: BP 143/80; PULSE 59; RESP 16; TEMP 36.7; O2SAT 97; BMI 43.4
--- NOTE | 2020-11-01 21:29 | ED.VIS.DENTA ---
HPI History of Present Illness Chief Complaint: Dental Informant: patient Onset/Context/Timing Onset: Yesterday Context: Sudden Onset Timing: Continuous Quality: Pain Location: Upper right molars Current Severity: Moderate Maximum Severity: Severe Worsened by: Cold, chewing and movement of jaw Relieved by: - (Nothing) Associated Symptoms Assocated Symptom - Dental: cold sensitivity; Negative for fever, jaw swelling or face swelling Narrative Narrative: Patient is a 25-year-old female presents with dental pain. She is not of a dentist. Denies fever, chills Patient has a traumatic fever, heart murmur, SBE, IV drug use or being immune suppressed. She denies allergies to antibiotics. She denies allergies to pain medicine. She denies ocular pain. She denies change in vision. She denies ear pain, ringing in ears or decreased hearing. She denies difficulty opening or closing her mouth completely. Prior similar symptoms: No Recent Illness/Hospitalization: No [facility] Medical History (Updated 11/01/20 @ 21:[address] Cas Kang MD) Asthma Cholelithiasis Home Medications PNV [id number] oil [ with DHA-Folic Acid] 1 ea PO DAILY 11/10/18 [History Last Taken 02/26/19 09:00] albuterol sulfate [Ventolin HFA] 2 puff INHALATION Q4H PRN PRN #1 inhaler 11/10/18 [Rx Last Taken Unknown] docusate sodium 100 mg PO BID #20 cap 03/03/19 [Rx Last Taken Unknown] ibuprofen 600 mg PO Q6H PRN PRN #60 tab 03/03/19 [Rx Last Taken Unknown] simethicone 80 mg PO PCHS PRN #30 tab 03/03/19 [Rx Last Taken Unknown] naproxen 500 mg PO BID PRN #20 tab 03/14/20 [Rx Last Taken Unknown] sulfamethoxazole-trimethoprim 1 tab PO BID #6 tab 06/17/20 [Rx Last Taken Unknown] hydrocodone-acetaminophen 1 tab PO Q6H PRN PRN 3 Days #10 tablet 11/01/20 [Rx Last Taken Unknown] ibuprofen 600 mg PO Q6H PRN PRN #20 tablet 11/01/20 [Rx Last Taken Unknown] penicillin V potassium 500 mg PO 4X/DAY #40 tab 11/01/20 [Rx Last Taken Unknown] Allergy/AdvReac Type Severity Reaction Status Date / Time No Known Allergies Allergy Verified 11/01/20 20:16 Family History Aunt Breast cancer Grandfather Diabetes Grandmother Diabetes Surgical History History of History of tonsillectomy Social History Smoking Status: Never smoker alcohol intake: never substance use type: does not use ROS ROS ED Constitutional Constitutional ED: Denies chills, fever(s), subjective or sweats Eyes Eyes: Denies blurry vision or change in vision ENT ENT ED: Reports other Details: Dental pain as previously described ; Denies ear pain, rhinorrhea or sore throat Cardiovascular Cardiovascular: Reports palpitations Respiratory/Chest Respiratory/Chest: Reports cough and dyspnea Gastrointestinal Gastrointestinal: Reports nausea and vomiting Integumentary Denies rash Neurologic Neurologic: Denies headache(s) Hematologic/Lymphatic Hematologic/Lymphatic: Denies easy bleeding, easy bruising or lymphadenopathy Allergic/Immunologic Allergic/Immunologic ED: Denies mouth swelling, tongue swelling or urticaria EXAM Physical Exam Const Vital Signs: 11/01/20 20:16 Temperature 98.0 F Temperature Source Temporal Pulse Rate 59 L Respiratory Rate 16 Blood Pressure 143/80 H Blood Pressure Mean 101 Pulse Ox 97 Oxygen Delivery Method Room Air Positive well nourished, well developed and obese General Appearance ED: well developed Nutritional Appearance: obese HEENT Reports TM's clear HEENT Narrative: Patient has a large defect and erosion of tooth #1 with exposure of pulp. There is swelling around the tooth. There is defect occlusive surface tooth #2 with exposure of dentin. There is a large crack involving filling tooth #3. Negative for trauma Face and Sinus: sinuses nontender Tympanic Membrane ED: Yes TM's clear Teeth and Gingiva: abnormal tooth and associated gingiva Positive for tenderness, associated gingival edema and pulp exposed Eyes PERRL and EOMs intact bilaterally General Eye ED: Negative for pale conjunctiva or scleral icterus Neck no lymphadenopathy, supple and no JVD General: normal visual inspection Lymph Lymphatic: no lymphadenopathy noted Resp normal respiratory effort and clear to auscultation bilaterally Cardio regular rate, regular rhythm, S1 normal heart sound, S2 normal heart sound and no murmurs Neuro oriented x3, CN's II-XII intact bilaterally and no sensory deficits noted Sensorium / Orientation: alert Psych mental status grossly normal Skin no rashes or lesions noted MDM MDM MDM Narrative Medical decision making narrative: Patient was informed she has a dental infection. She was treated with penicillin, anti-inflammatory and open analgesia. She was informed that she must follow-up with a dentist to alleviate her pain. The medicine will diminish the pain and make it tolerable. She was discharged home with appropriate home-going instructions. Discharge Plan Triage Chief Complaint: Dental ED Provider: Cas Kang Dx/Rx/DC Orders Clinical Impression: Abscess, dental, Dental caries extending into dentin, Chronic dental caries extending to pulp Instructions: Dental Abscess Prescriptions: New hydrocodone-acetaminophen [hydrocodone-acetaminophen] 1 TABLET tablet 1 tab PO Q6H PRN PRN (Reason: Pain) 3 Days Qty: 10 RF: 0 penicillin V potassium 250 MG tablet 500 mg PO 4X/DAY Qty: 40 RF: 0 ibuprofen 600 MG tablet 600 mg PO Q6H PRN PRN (Reason: pain) Qty: 20 RF: 0 No Action PNV [id number] oil [ with DHA-Folic Acid] 1 EACH tablet,chewable 1 ea PO DAILY RF: 0 albuterol sulfate [Ventolin HFA] 1 INHALER inhaler 2 puff inhalation Q4H PRN PRN (Reason: Wheezing) Qty: 1 RF: 0 docusate sodium 100 MG capsule 100 mg PO BID Qty: 20 RF: 0 ibuprofen 600 MG tablet 600 mg PO Q6H PRN PRN (Reason: Mild Pain (1-310)) Qty: 60 RF: 0 simethicone 80 MG tablet 80 mg PO PCHS PRN (Reason: Indigestion/stomach pain) Qty: 30 RF: 0 naproxen 500 MG tablet 500 mg PO BID PRN Qty: 20 RF: 0 sulfamethoxazole-trimethoprim 1 TABLET tablet 1 tab PO BID Qty: 6 RF: 0 Primary Care Provider: Rick Armas NP Referrals: Rick Armas [employer], [employer] [employer] [facility] [Primary Care Provider] - Dentist,Your [STAFF PHYSICIAN] - 5-7 Days Disposition Disposition: Home, self care
[2020-11-01] MEDS: Penicillin Vk 250 MG Tablet 500 MG PO (21:51)
[2020-11-01] MEDS: HYDROcodone Bitartrate/Apap 5/325 Tablet PO (21:52)
[2020-11-01] MEDS: Ibuprofen 400 MG Tablet 800 MG PO (21:52)
== END 2020-11-01 21:54 | disposition home or self-care (01) ==
PROVIDERS: Emergency Provider Emergency Medicine; PCP Nurse Practitioner Family
DX: K04.7 Periapical abscess without sinus (principal); K02.9 Dental caries, unspecified; K03.81 Cracked tooth; E66.9 Obesity, unspecified; Z68.41 Body mass index [BMI] 40.0-44.9, adult; J45.909 Unspecified asthma, uncomplicated
CPT/HCPCS: 99283

== ENCOUNTER 2021-08-29 12:27 | Outpatient (CLI) | payer MEDICAID, SELFPAY ==
--- NOTE | 2021-08-29 12:40 | RAD_ITS ---
CLINICAL HISTORY: Female, 25 years old. Left shoulder pain. PROCEDURE: ARTHROGRAM - LEFT SHOULDER ARTHROGRAM. CONSENT: The procedure as well as the benefits and possible complications including infection and bleeding were explained to the patient. Informed consent was obtained. FLUOROSCOPY TIME (if supplied): (30 seconds) minutes/seconds Injection Information: 10 cc of dilute MRI contrast. Number of images obtained: 4 TECHNIQUE: (All elements of maximal sterile barrier technique followed, including US elements as applicable) The patient was in the supine position. The overlying skin was prepped and draped in the usual sterile fashion. Following local anesthetic application and under direct fluoroscopic guidance, a 22-gauge spinal needle was placed into the shoulder joint. 2 cc of a ISOVUE 300 was injected for confirmation. Following this, 10 cc of dilute MRI contrast was injected. RAD/Arthrogram Shoulder w/ MRI IMPRESSION: Successful right shoulder arthrogram for MRI examination. Electronically Signed: Edvin Church MD at 14:32 EST ,
[2021-08-29] MEDS: Lidocaine 2% (5ml sdv) 5 ML VIAL.MPF INFILT (13:00)
[2021-08-29] MEDS: Iopamidol 10 ML in Syringe 1 EACH 600 ML INTRAARTIC (13:45)
--- NOTE | 2021-08-29 13:45 | MRI_ITS ---
EXAM: MR LEFT UPPER EXTREMITY ARTHROGRAM WITH INTRAVENOUS CONTRAST, SHOULDER CLINICAL INDICATION: LEFT shoulder pain arthrogram TECHNIQUE: Multiplanar and multisequence MR images of the left shoulder following injection of dilute gadolinium into the joint space. This report was created using [employer] technology. CONTRAST: Exam performed following intra articular injection of10ml arthrogram compound solution into glenohumeral joint by Dr. Kendra Church COMPARISON: None. FINDINGS: TENDONS: SUPRASPINATUS: Unremarkable. Intact. INFRASPINATUS: Unremarkable. Intact. SUBSCAPULARIS: Unremarkable. Intact. TERES MINOR: Unremarkable. Intact. BICEPS BRACHII, LONG HEAD: Unremarkable. The extra-articular biceps tendon is in the bicipital groove. The intra-articular biceps tendon is normal. LIGAMENTS: GLENOHUMERAL: Unremarkable. Intact. MUSCLES: Unremarkable. No rotator cuff muscle atrophy. FLUID: Unremarkable. No subacromial-subdeltoid space bursal fluid. CARTILAGE: Unremarkable. Articular cartilage intact. GLENOID LABRUM: Unremarkable. Intact. BONES/JOINTS: Unremarkable. No fracture. No abnormal bone marrow signal. OTHER SOFT TISSUES: Unremarkable. No rotator interval edema. MRI/Upper Ext Jt Only W/Contrast IMPRESSION: Unremarkable MR arthrogram of the left shoulder. Electronically Signed: Anibal Alexandra MD at 15:[address] [facility] Reading Location ID and State: [facility] / [place] , Service support ,
== END 2021-08-29 23:59 | disposition home or self-care (01) ==
LOC: RAD 12:29
PROVIDERS: PCP Nurse Practitioner Family
DX: M24.812 Other specific joint derangements of left shoulder, not elsewhere classified (principal); M75.22 Bicipital tendinitis, left shoulder; M89.8X1 Other specified disorders of bone, shoulder
CPT/HCPCS: 23350; 73222; 77002; A9575; Q9967

== ENCOUNTER 2022-07-16 17:36 | Emergency (ER) | payer MEDICAID, SELFPAY ==
[2022-07-16 17:37] VITALS: BP 139/79; PULSE 68; RESP 18; TEMP 36.4; O2SAT 98; BMI 42.7
--- NOTE | 2022-07-16 19:11 | ED.VIS.BACK ---
HPI History of Present Illness Chief Complaint: Back Detail of Chief Complaint: Severe bilateral low back pain Informant: patient Onset/Context/Timing Onset: Yesterday Context: Sudden Onset Chronic pain exacerbated by: Movement Injury: - (None) Timing: Continuous Quality: - (Severe pain) Location: Lumbar Current Severity: Moderate Maximum Severity: Severe Worsened by: improves with Movement, Ambulation, Bending and Lifting Relieved by: Nothing Associated Symptoms Associated Symptoms: Radiation to Left Leg and - (Ports buckling of her knee going up and down steps on the left side. Denies saddle paresthesia or anesthesia. Denies foot drop.); Negative for Numbness, Tingling, Radiation to Right Leg, Fever, Abdominal Pain, Dysuria, Unable to Ambulate, Unable to Transfer, Urinary Retention, Urinary Incontinence, Constipation or Fecal Incontinence Narrative Narrative: Patient is a 26-year-old woman who presents with severe bilateral atraumatic low back pain that started yesterday. Movement exacerbates it. She preferred to sit versus standing. She denies bowel bladder dysfunction. She reports the buckling on the left side going up and down steps. She denies foot drop. She denies fever, chills night sweats. She has had no recent dental procedure. She denies calf pain. Nothing alleviates her pain. Prior similar symptoms: Yes (When and told she had sciatica) Recent Illness/Hospitalization: No [facility] Medical History Asthma Cholelithiasis Internal derangement of left shoulder Physical exam, pre-employment Home Medications albuterol sulfate 90 mcg/actuation aerosol inhaler (Ventolin HFA) 2 puff inhalation Q4H PRN PRN Wheezing ##1 11/10/18 [Rx Last Taken Unknown] ibuprofen 600 mg tablet 600 mg PO Q6H PRN PRN Mild Pain (1-3) #60 tabs 03/03/19 [Rx Last Taken Unknown] meloxicam 15 mg tablet 15 mg PO DAILY Left shoulder pain #30 tabs 08/09/21 [Rx Last Taken Unknown] hydrocodone-acetaminophen 5-325mg 5mg-325mg 1 tab PO Q6H PRN PRN Pain 3 days #10 TABLETS 07/16/22 [Rx Last Taken Unknown] naproxen 500 mg tablet 500 mg PO BID #14 tabs 07/16/22 [Rx Last Taken Unknown] Allergy/AdvReac Type Severity Reaction Status Date / Time No Known Allergies Allergy Verified 08/09/21 13:39 Family History Aunt Breast cancer Grandfather Diabetes Grandmother Diabetes Surgical History History of History of tonsillectomy Social History (Updated 07/16/22 @ 19:[address] Cas Kang MD) household members: spouse Smoking Status: Never smoker alcohol intake: never substance use type: does not use ROS ROS ED Constitutional Constitutional ED: Denies chills, fever(s), subjective, sweats or weight loss Eyes Eyes: Denies blurry vision, change in vision or diplopia Cardiovascular Cardiovascular: Denies chest pain, orthopnea, palpitations or racing heartbeat Respiratory/Chest Respiratory/Chest: Denies dyspnea, dyspnea on exertion or orthopnea Gastrointestinal Gastrointestinal: Denies abdominal pain, constipation, diarrhea or melena Genitourinary Genitourinary ED: Denies dysuria, hematuria or urinary frequency Musculoskeletal Musculoskeletal: Reports back pain and other Details: Documented HPI narrative ; Denies arthralgias, myalgias or neck pain Integumentary Denies rash Neurologic Neurologic: Denies paresthesias or weakness Endocrine Endocrinology: Denies cold intolerance or heat intolerance Hematologic/Lymphatic Hematologic/Lymphatic: Denies easy bleeding or easy bruising EXAM Physical Exam Const Vital Signs: 07/16/22 17:37 Temperature 97.6 F L Temperature Source Temporal Pulse Rate 68 Respiratory Rate 18 Blood Pressure 139/79 H Blood Pressure Mean 99 Pulse Ox 98 Oxygen Delivery Method Room Air Positive well nourished, well developed and obese Constitutional Narrative: Patient complained of pain and made sounds when she was turning from her right side to her back. General Appearance ED: well developed; Negative for NAD or pallor Nutritional Appearance: obese HEENT Reports moist mucous membranes HEENT Narrative: Head is atraumatic no cephalic. Ears normal. Nares patent. Mucosa moist. Teeth normal. Patient does have piercings noted. Eyes PERRL and EOMs intact bilaterally General Eye ED: Negative for pale conjunctiva or scleral icterus Neck supple and no JVD Resp normal respiratory effort and clear to auscultation bilaterally Cardio regular rate, regular rhythm, S1 normal heart sound, S2 normal heart sound and no murmurs GI normal to inspection, nondistended, normoactive bowel sounds, soft to palpation, non-tender, non-distended and no masses Back/Spine normal to inspection; Negative for no thoracic nor lumbar tenderness Cervical Spine: Negative for cervical spine tenderness and Negative for paracervical muscle tenderness Thoracic Spine / Upper Back: paraspinal muscle tenderness Lumbar Spine / Lower Back: ROM limited and straight leg raise negative bilaterally Extremity normal to inspection and no clubbing, cyanosis or edema Extremity Narrative: DP and PT T pulses are palpable. Neuro oriented x3 and no sensory deficits noted Neuro Narrative: Normal sensation over L3, L4, L5 and S1 dermatome. There is no clonus. EHLs intact. Normal perianal sensation. Sensorium / Orientation: alert Motor Exam: strength 5/5 throughout Deep Tendon Reflexes: Rt Patellar (L4): 1+, Lt Patellar (L4): 1+, Rt Ankle (S1): 1+ and Lt Ankle (S1): 1+ Deep Tendon Reflexes Back: Rt Patellar (L4): 1+, Lt Patellar (L4): 1+, Rt Ankle (S1): 1+ and Lt Ankle (S1): 1+ Plantar Reflex: Downgoing: bilateral Psych Mood & Affect: depressed Skin no rashes or lesions noted and no wounds General Skin Exam: Negative for jaundice or pallor MDM MDM MDM Narrative Medical decision making narrative: Patient with muscular low back pain. Once patient is medicated since she is complained of severe pain will have her ambulate and perform 1 legged squat to determine if she truly does have quadricep weakness. Records from the [facility] clinic and for back note were reviewed. These were all third last year. There was no significant findings other than history of x2 and history of tonsillectomy. Patient was reassessed at 2030. Patient sitting up in bed appears no discomfort. She was able to stand up. Gait was observed and normal. There was no foot drop. Able to walk on heels and toes. She is able to perform a 1 legged squat right and left lower extremity. She has improved markedly. Plan is to discharge with NSAID and up analgesia. Since patient has atraumatic back pain less than 4 to 6 weeks per literature imaging is not indicated. Patient does not meet criteria for emergent MRI. Discharge Plan Triage Chief Complaint: Back ED Provider: Cas Kang Dx/Rx/DC Orders Clinical Impression: Acute bilateral low back pain, History of asthma, Morbid obesity Instructions: ED Back Exercises, Lumbar, ED Back Pain (Acute or Chronic) Prescriptions: New hydrocodone-acetaminophen [hydrocodone-acetaminophen] 5-325 mg tablet 1 tab PO Q6H PRN PRN (Reason: Pain) 3 Days Qty: 10 0RF naproxen 500 mg tablet 500 mg PO BID Qty: 14 0RF No Action meloxicam 15 mg tablet 15 mg PO DAILY Qty: 30 0RF Rx Instructions: Do not take in conjunction with other NSAIDs. albuterol sulfate [Ventolin HFA] 1 INHALER inhaler 2 puff inhalation Q4H PRN PRN (Reason: Wheezing) Qty: 1 0RF ibuprofen 600 MG tablet 600 mg PO Q6H PRN PRN (Reason: Mild Pain (-09/07)) Qty: 60 0RF Primary Care Provider: Rick Armas NP Referrals: Rick Armas NP, [employer] [Primary Care Provider] - Disposition Disposition: Home, Self Care
[2022-07-16] MEDS: Ondansetron 4 MG/2 ML Vial IV (19:32)
[2022-07-16] MEDS: Ketorolac 15 MG/ML Vial IV (19:32)
[2022-07-16] MEDS: Morphine 4 MG/ML Syringe IV (19:32)
[2022-07-16 20:47] VITALS: BP 108/76; PULSE 72; RESP 16; O2SAT 97
== END 2022-07-16 20:47 | disposition home or self-care (01) ==
PROVIDERS: Emergency Provider Emergency Medicine; PCP Nurse Practitioner Family; Visit Provider Emergency Medicine
DX: M54.50 Low back pain, unspecified (principal); E66.01 Morbid (severe) obesity due to excess calories; G89.29 Other chronic pain; J45.909 Unspecified asthma, uncomplicated
CPT/HCPCS: 96374; 96375; 99282; A4216; J2405

== ENCOUNTER 2022-10-23 20:32 | Emergency (ER) | payer MEDICAID, SELFPAY ==
[2022-10-23 20:33] VITALS: BP 154/97; PULSE 75; RESP 15; TEMP 36.9; O2SAT 100
[2022-10-23 21:25] VITALS: BMI 44.2
--- NOTE | 2022-10-23 21:46 | ED.VIS.DENTA ---
HPI History of Present Illness Chief Complaint: Dental Informant: patient Narrative Narrative: Progressive right lower dental pain for the past 4 days. Has a known cavity intermittent symptoms however this is last at the worst. No current dentist. Hot and cold sensitivities. No fevers. No trouble swallowing. Prior similar symptoms: Yes PFSH PFSH Medical History Acute otitis externa of right ear ADD (attention deficit disorder) Anemia Asthma Cholelithiasis Elevated d-dimer HTN (hypertension) Internal derangement of left shoulder Palpitations Physical exam, pre-employment Home Medications penicillin V potassium 500 mg tablet 500 mg PO 4X/DAY #40 tabs 10/23/22 [Rx Last Taken Unknown] Allergy/AdvReac Type Severity Reaction Status Date / Time No Known Allergies Allergy Verified 10/23/22 20:36 Family History Aunt Breast cancer Grandfather Diabetes Grandmother Diabetes Surgical History History of History of tonsillectomy Social History household members: spouse Smoking Status: Never smoker alcohol intake: never substance use type: does not use ROS ROS ED Constitutional Constitutional ED: Denies chills, fever(s) or sweats Eyes Eyes: Denies change in vision ENT ENT ED: Reports other Details: Dental pain ; Denies dysphagia or sore throat Cardiovascular Cardiovascular: Denies chest pain, leg edema, palpitations or racing heartbeat Respiratory/Chest Respiratory/Chest: Denies cough, dyspnea or dyspnea on exertion Gastrointestinal Gastrointestinal: Denies abdominal pain, diarrhea, nausea or vomiting Genitourinary Genitourinary ED: Denies dysuria, hematuria or urinary frequency Musculoskeletal Musculoskeletal: Denies back pain, extremity pain or neck pain Integumentary Denies rash or wounds Neurologic Neurologic: Denies headache(s), paresthesias or weakness EXAM Physical Exam Const Vital Signs: 10/23/22 20:33 Temperature 98.4 F Temperature Source Temporal Pulse Rate 75 Respiratory Rate 15 Blood Pressure 154/97 H Blood Pressure Mean 116 Pulse Ox 100 Oxygen Delivery Method Room Air Positive well nourished and well developed General Appearance ED: well developed and NAD HEENT Reports moist mucous membranes HEENT Narrative: Large dental carry under the feeling tooth #29 laterally tender to percussion. No sublingual edema no focal abscess. No jaw swelling. normocephalic and atraumatic Eyes PERRL, EOMs intact bilaterally and conjunctivae normal General Eye ED: Yes normal appearance of both eyes Neck no lymphadenopathy and supple General: Negative for tenderness Chest Wall Chest: Negative for tenderness Resp normal respiratory effort and normal air movement Effort and Inspection: symmetric chest movement; Negative for respiratory distress Cardio regular rate, regular rhythm and no murmurs Peripheral Pulses: pulses 2+ throughout GI normal to inspection, nondistended, normoactive bowel sounds and non-tender Palpation: Negative for guarding or rebound tenderness present Back/Spine no CVA tenderness and no thoracic nor lumbar tenderness Extremity normal to inspection General Extremety ED: Negative for edema or tenderness General Extremity: Negative for edema Neuro oriented x3 and no sensory deficits noted Sensorium / Orientation: awake and alert Skin no rashes or lesions noted and no wounds MDM MDM MDM Narrative Medical decision making narrative: Interventions / MDM: Differential diagnosis: Dental cavity, dental pain Diagnosis considered but do not suspect: No signs of Federico's angina My EKG interpretation: N/A Imaging independently reviewed and interpreted by myself: N/A External documents reviewed: N/A Test considered but not ordered:N/A ED course: Vital stable exam focal dental carry tooth #29. Dental copak was mixed and placed to help with symptoms. Patient started on penicillin and Tylenol. She will alternate between Tylenol and ibuprofen. She is given dental list for follow-up for definitive treatment. All questions were answered. Re-evaluation: stable Disposition discussed with patient/family/significant other: Patient and significant other Case discussed with consulting clinician: N/A Discharge Plan Triage Chief Complaint: Dental ED Provider: [place] [facility] Dx/Rx/DC Orders Clinical Impression: Dentalgia, Dental caries Instructions: ED Dental Pain, ED Dental Cavity Prescriptions: New penicillin V potassium 500 mg tablet 500 mg PO 4X/DAY Qty: 40 0RF Primary Care Provider: Rick Armas NP Referrals: Rick Armas NP, REGIONAL MAINTENANCE MANAGER-C [Primary Care Provider] - Activity Restrictions/Additional Instructions: Take antibiotic as prescribed alternate between ibuprofen and Tylenol call dental list for outpatient follow-up for definitive treatment. Disposition Disposition: Home, Self Care Discharge Date/Time: 10/23/22 21:50
[2022-10-23] MEDS: Acetaminophen 500 MG Tablet 1000 MG PO (21:50)
[2022-10-23] MEDS: Penicillin Vk 250 MG Tablet 500 MG PO (21:50)
== END 2022-10-23 21:50 | disposition home or self-care (01) ==
PROVIDERS: Emergency Provider Emergency Medicine; PCP Nurse Practitioner Family; Visit Provider Emergency Medicine
DX: K02.9 Dental caries, unspecified (principal); K08.89 Other specified disorders of teeth and supporting structures; I10 Essential (primary) hypertension
CPT/HCPCS: 99282

== ENCOUNTER → 2022-10-29 | Outpatient (CLI) | payer MEDICAID, SELFPAY ==
[2022-11-05 17:12] LABS: HPV Reflexed? NOT INDICATED
== END | disposition home or self-care (01) ==
LOC: LABSPEC 16:56
PROVIDERS: PCP Nurse Practitioner Family; Referring Provider Registered Nurse; Visit Provider Registered Nurse
DX: Z12.4 Encounter for screening for malignant neoplasm of cervix (principal)
CPT/HCPCS: 88175; G0145

== ENCOUNTER 2022-11-15 10:24 | Outpatient (CLI) | payer MEDICAID, SELFPAY ==
[2022-11-15 10:54] LABS: Absolute Lymphocyte Count 1.66 X10^3/uL (0.83-4.51); Absolute Neutrophil Count 4.2 X10^3/uL (2.0-7.7); Basophil# 0.04 X10^3/uL; Basophil% 0.6 % (0-1); Eosinophil# 0.19 X10^3/uL; Hematocrit 35.1 % (37-47); Hemoglobin 10.8 g/dL (12.0-15.0); Lymphocyte # 1.66 X10^3/ul (0.83-4.51); Lymphocyte % 26.1 % (19-41); Mean Corp Hgb Conc 30.8 g/dL (32-36); Mean Corpuscular Hgb 22.4 pg (27.0-32.0); Mean Corpuscular Volume 72.7 fL (81-99); Mean Platelet Vol. 10.1 fl (6.2-12.0); Monocyte% 4.7 % (0-10); NRBC Flagged by Analyzer 0 % (0-5); Neutrophil # 4.15 X10^3/uL (2.7-7.7); Neutrophil % 65.4 % (47-70); Platelet Count 348 K/mm3 (150-450); RBC Distribution Width CV 17.2 % (11.6-14.6); RBC Distribution Width SD 45.2 fl (35.1-43.9); RET-HE 22.6 pg (30-35); Red Blood Count 4.83 M/mm3 (4.2-5.4); Reticulocyte Count 1.31 % (0.5-1.5); White Blood Count 6.4 K/mm3 (4.4-11.0)
[2022-11-15 11:36] LABS: ALB/GLOB Ratio 0.7 RATIO (0.9-2.4); AST(SGOT) 13 U/L (15-37); Alanine Aminotransfer ALT/SGPT 21 U/L (13-56); Albumin, Serum 3.1 g/dL (3.2-5.0); Alkaline Phosphatase 103 U/L (45-117); Anion Gap 7 (5-15); BUN 11 mg/dL (7-18); Calcium,Total 8.5 mg/dL (8.5-10.1); Chloride 108 mmol/L (98-107); Creatinine, Serum 0.79 mg/dL (0.55-1.02); EST Glomerular Filtration Rate 93 mL/min (>60); Est Glom Filt Rate - Afr Amer 112 mL/min (>60); Ferritin 15 ng/mL (8-252); Globulin 4.5 g/dL (2.2-4.2); Glucose 93 mg/dL (74-106); Iron 20 ug/dL (50-170); Iron Binding Capacity,Total 404 ug/dL (250-450); Potassium 3.7 mmol/L (3.5-5.1); Protein, Total 7.6 g/dL (6.4-8.2); Sodium Level 140 mmol/L (136-145)
[2022-11-15 11:43] LABS: Prolactin 7.2 ng/mL; Thyroid Stim Hormone (TSH) 1.94 uIU/mL (0.358-3.74)
[2022-11-16 15:08] LABS: Endomysial Antibody IgA Negative (Negative); Immunoglobulin A 174 mg/dL (87-352); t-Transglutaminase IgA <2 U/mL (0-3)
== END 2022-11-15 23:59 | disposition home or self-care (01) ==
LOC: LAB 10:27
PROVIDERS: Nurse Practitioner Adult Health; Registered Nurse; PCP Nurse Practitioner Family; Visit Provider Nurse Practitioner Family
DX: D64.9 Anemia, unspecified (principal); E61.1 Iron deficiency
CPT/HCPCS: 36415; 80053; 82627; 82728; 82784; 83516; 83540; 83550; 84146; 84402; 84443; 85025; 85045; 86255; 82626

== ENCOUNTER → 2022-12-07 | Outpatient (CLI) | payer MEDICAID, SELFPAY ==
--- NOTE | 2022-12-07 08:25 | US_ITS ---
STUDY: ULTRASOUND OF THE FEMALE PELVIS - COMPLETE REASON FOR EXAM: Female, 27 years old. irregular menses TECHNIQUE: Endovaginal. Transvaginal US was obtained to better visualized the ovaries. COMPARISON: CT 11/12/2016. FINDINGS: The uterus is anteverted and is in a midline position. The uterus measures 8.5 x 5.7 cm. There is a Nabothian cyst of the cervix. The endometrium measures 7 mm in thickness, and is hyperechoic. There is no demonstrated endometrial mass. There is no demonstrated myometrial mass. I.U.D. - The patient does not have an I.U.D. The right ovary is visualized. The right ovary measures 4.6 cm. Cyst measures 43 mm. This is septated. ACR White Paper guidelines (Diez, et. al. Radiology 2010; 256(3):943-954) suggest no follow-up is necessary. There is no visualized right adnexal mass or complex lesion. There is normal arterial and normal venous vascularity. The left ovary is visualized. The left ovary measures 2.2 cm. There is no left ovarian cyst or ovarian mass. There is no visualized left adnexal mass or complex lesion. There is normal arterial and normal venous vascularity. There is no fluid in the cul-de-sac. Urinary bladder volume is (in cc) 23. US/Pelvic w/ Transvaginal IMPRESSION: There is a Nabothian cyst of the cervix. Electronically Signed: Anibal Alexandra MD at 14:57 EDT ,
== END | disposition home or self-care (01) ==
LOC: OPUS 08:24
PROVIDERS: PCP Nurse Practitioner Family; Referring Provider Registered Nurse; Visit Provider Registered Nurse
DX: N92.6 Irregular menstruation, unspecified (principal)
CPT/HCPCS: 76830; 76856

== ENCOUNTER 2022-12-26 18:42 | Emergency (ER) | payer MEDICAID, SELFPAY ==
[2022-12-26 18:43] VITALS: BP 129/88; PULSE 91; RESP 16; TEMP 35.9; O2SAT 99; BMI 42.0
[2022-12-26] MEDS: Ondansetron 4 MG/2 ML Vial IV (19:39)
[2022-12-26] MEDS: Ketorolac 15 MG/ML Vial IV (19:39)
[2022-12-26] MEDS: Morphine 4 MG/ML Syringe IV (19:39)
--- NOTE | 2022-12-26 20:22 | EDS_ITS ---
HPI History of Present Illness Chief Complaint: Back Detail of Chief Complaint: Central low back pain with radiation lateral aspect of the right lower extr Informant: patient Onset/Context/Timing Onset: Days Context: Sudden Onset Chronic pain exacerbated by: No history of chronic back pain Timing: Waxes and wanes Quality: Dull and Aching Location: Lumbar and Right Leg Current Severity: Mild Maximum Severity: Moderate Worsened by: improves with Movement, Ambulation, Bending and Lifting Relieved by: Nothing Associated Symptoms Associated Symptoms: Radiation to Right Leg and - (No saddle paresthesia or anesthesia. Negative foot drop. Question buckling of knees going up or down steps on the right.); Negative for Numbness, Tingling, Radiation to Left Leg, Fever, Abdominal Pain, Dysuria, Unable to Ambulate, Unable to Transfer, Urinary Retention, Urinary Incontinence, Constipation or Fecal Incontinence Narrative Narrative: Patient is a 27-year-old woman who has had intermittent back pain in the past. There is no history of trauma. She denies fever, chills night sweats. She denies recent dental procedure or any type of procedure. She denies dysuria, frequency, urgency or hematuria. She denies bowel or bladder dysfunction. She denies numbness when she wipes or altered sensation. She reports pain rating do wn the lateral aspect of the right leg. She has not noted a rash. She has not had images of her back. Prior similar symptoms: Yes Recent Illness/Hospitalization: No PFSH PFS Medical History Acute otitis externa of right ear ADD (attention deficit disorder) Anemia Asthma Cholelithiasis Elevated d-dimer HTN (hypertension) Infected dental caries Internal derangement of left shoulder Palpitations Physical exam, pre-employment Home Medications hydrocodone-acetaminophen 5-325mg 5mg-325mg 1 tab PO Q6H PRN PRN Pain 3 days #10 TABLETS 12/26/22 [Rx Last Taken Unknown] naproxen 500 mg tablet 500 mg PO BID #10 tabs 12/26/22 [Rx Last Taken Unknown] Allergy/AdvReac Type Severity Reaction Status Date / Time No Known Allergies Allergy Verified 12/26/22 18:45 Family History Aunt Breast cancer, Onset Age: 50 Grandfather Diabetes Grandmother Diabetes Surgical History History of History of tonsillectomy Social History household members: spouse number of children: 2 current occupational status: unemployed current occupation: unemployed pets and animals: Yes pets and animals: cat(s) and dog(s) sexually active: Yes Smoking Status: Never smoker alcohol intake: current alcohol intake frequency: holidays/special occasions only substance use type: does not use, former substance user Date of last use: smokes marijuana and marijuana what type of physical activity do you participate in: none seatbelt use: always do you feel safe at home: Yes additional social history: - Brandone ROS ROS ED Constitutional Constitutional ED: Denies chills, fever(s), subjective or sweats Eyes Eyes: Denies blurry vision, change in vision or diplopia ENT ENT ED: Denies ear pain, rhinorrhea or sore throat Cardiovascular Cardiovascular: Denies chest pain, orthopnea or palpitations Respiratory/Chest Respiratory/Chest: Denies dyspnea, dyspnea on exertion or orthopnea Gastrointestinal Gastrointestinal: Denies abdominal pain, constipation, diarrhea, melena, nausea or vomiting Genitourinary Genitourinary ED: Denies dysuria, hematuria or urinary frequency Musculoskeletal Musculoskeletal: Reports back pain; Denies arthralgias, myalgias or neck pain Integumentary Denies Abrasions or rash Neurologic Neurologic: Denies headache(s), paresthesias or weakness Psychiatric Psychiatric: Denies anxiety or depression Endocrine Endocrinology: Denies cold intolerance or heat intolerance Hematologic/Lymphatic Hematologic/Lymphatic: Denies easy bleeding or easy bruising EXAM Physical Exam Const Vital Signs: 12/26/22 18:43 Temperature 96.6 F L Temperature Source Temporal Pulse Rate 91 Respiratory Rate 16 Blood Pressure 129/88 H Blood Pressure Mean 101 Pulse Ox 99 Oxygen Delivery Method Room Air Positive well nourished, well developed and obese General Appearance ED: well developed; Negative for NAD or pallor Nutritional Appearance: obese HEENT Reports moist mucous membranes HEENT Narrative: Head is atraumatic normocephalic. Patient has piercing of her nose. Ears normal. Posterior pharynx normal. Eyes PERRL and EOMs intact bilaterally General Eye ED: Negative for pale conjunctiva or scleral icterus Neck no lymphadenopathy, supple and no JVD Resp normal respiratory effort and clear to auscultation bilaterally Cardio regular rate, regular rhythm, S1 normal heart sound, S2 normal heart sound and no murmurs GI normal to inspection, nondistended, normoactive bowel sounds, soft to palpation, non-tender, non-distended and no masses Back/Spine normal to inspection; Negative for no thoracic nor lumbar tenderness General Back: Negative for CVA tenderness Cervical Spine: Negative for cervical spine tenderness Thoracic Spine / Upper Back: paraspinal muscle tenderness Lumbar Spine / Lower Back: ROM limited and straight leg raise negative bilaterally Extremity normal to inspection and no clubbing, cyanosis or edema General Extremety ED: Negative for edema or tenderness General Extremity: Negative for edema Neuro oriented x3 and no sensory deficits noted Neuro Narrative: Straight leg test is negative right and left. Bowstring sign is negative. Normal sensation of L3, L4, L5 and S1 dermatome. EHLs intact. Gait observed without foot drop. Able to walk on heels and toes. Able to perform 1 legged squat right and left leg. DP and PT pulse are palpable. Sensorium / Orientation: alert Motor Exam: strength 5/5 throughout Deep Tendon Reflexes: Rt Patellar (L4): 1+, Lt Patellar (L4): 1+, Rt Ankle (S1): 1+ and Lt Ankle (S1): 1+ Deep Tendon Reflexes Back: Rt Patellar (L4): 1+, Lt Patellar (L4): 1+, Rt Ankle (S1): 1+ and Lt Ankle (S1): 1+ Plantar Reflex: Downgoing: bilateral (There is no clonus.) Psych mental status grossly normal Skin no rashes or lesions noted and no wounds General Skin Exam: Negative for jaundice or pallor MDM MDM MDM Narrative Medical decision making narrative: Patient with muscular pain. She was treated with NSAID and opiate analgesia. When she was reevaluated at 2020 she is now complaining of epigastric pain. She states is similar to the pain she had prior to cholecystectomy. She does have reproducible epigastric pain. We will treat with GI cocktail and reevaluate. Treatment and Re-Evaluation Narrative: Patient was reassessed at 2149 for her epigastric pain. This has resolved. Patient be discharged to home. Discharge Plan Triage Chief Complaint: Back ED Provider: Jorge LuisCas Dx/Rx/DC Orders Clinical Impression: Low back pain, Acute epigastric pain Instructions: ED Back Pain (Acute or Chronic), ED Gastritis (Adult) Prescriptions: New hydrocodone-acetaminophen [hydrocodone-acetaminophen] 5-325 mg tablet 1 tab PO Q6H PRN PRN (Reason: Pain) 3 Days Qty: 10 0RF naproxen 500 mg tablet 500 mg PO BID Qty: 10 0RF Primary Care Provider: Rick Armas NP Referrals: Rick Armas NP, METAL HANDLER-C [Primary Care Provider] - 3-5 Days if not improving Disposition Disposition: Home, Self Care
[2022-12-26] MEDS: Mag Hydrox/Al Hydrox/Simeth 30 ML UDC PO (21:06)
[2022-12-26 22:08] VITALS: RESP 18
== END 2022-12-26 22:08 | disposition home or self-care (01) ==
PROVIDERS: Emergency Provider Emergency Medicine; PCP Nurse Practitioner Family; Visit Provider Emergency Medicine
DX: R10.13 Epigastric pain (principal); M54.50 Low back pain, unspecified; I10 Essential (primary) hypertension; Z90.49 Acquired absence of other specified parts of digestive tract
CPT/HCPCS: 96374; 96375; 99283; A4216; J2405

== ENCOUNTER 2023-01-17 06:08 | Day surgery (SDC) | payer MEDICAID, SELFPAY ==
--- NOTE | 2023-01-17 06:21 | PCM.HP.BLA ---
History and Physical Date of Admission: 01/17/23 Chief Complaint: anemia Details: PARVIN TORRES, is a 27 F who presents to the office today to establish with GI for iron deficiency anemia of unknown etiology. She didn't tolerate oral iron supplement. Hx of iron infusions when . Menses every month, lasts 5-7 days, not heavy like they were prior to having children, her kids are ages 3 and 5. She has an appt on 10/29/22 to establish with [facility]. She denies any GI complaints. Very rarely gets heartburn. No nausea, vomiting, dysphagia, abdominal pain, diarrhea, constipation, melena, hematochezia. No prior endoscopy. +fatigue, occasional dizziness with change in position, no SOB. No FH celiac or other GI disorders. 05/2022 hgb 10.9 Comorbidities include ADD, asthma, elevated d-dimer, htn, palpitations, dental caries, gallstones PSH: tonsillectomy, ROS Const Constitutional: No fatigue ENT ENT: No difficulty swallowing Gastro GI: No abdominal pain, belching, bloating, change in bowel habits, change in stool character, coffee ground emesis, constipation, cramping, diarrhea, heartburn, difficulty swallowing, feeling full early, excessive flatus, incontinent of stools, Vomiting blood/hematemesis, Blood in stool, loose stools, Black,tarry stools, nausea/dyspepsia, pain with swallowing, vomiting or other Musc Musculoskeletal: Positive for sciatica and restless legs; No joint pain Skin Skin: No yellowing of the eye or itchy eyes Neuro Neurology: Positive for restless legs Psych Psychiatric: Positive for anxiety, Positive for depression, Positive for hyperactivity and Positive for inattentiveness Endo Endocrine: No fatigue Aller/Imm Allergy/Immunologic: No itchy eyes Almas/Lymp Hematologic/Lymphatic: Positive for easy bruising; No easy bleeding Exam Const General: cooperative and no acute distress Nutritional Appearance: obese Orientation: alert, awake and oriented x3 Eyes Conjunctivae: conjunctivae normal Sclera: sclerae normal Resp Effort & Inspection: normal respiratory effort GI Inspection: obesity Palpation: soft and nontender Quality Reporting Tobacco Screening ([facility] 138) Smoking Status: Never smoker Assessment and Plan Assessment and Plan (1) Anemia: Status: Chronic Plan: 27 yr old female with chronic JOSÉ. She doesn't tolerate po iron. Required iron infusions when . She has appt to establish with [facility] next week. Will update labs today and will test for celiac. Will schedule EGD to eval for hiatal hernia, PUD, H pylori, duodenal villous blunting. f/u office visit 2 wks after egd. Orders: Orders Celiac Disease Profile Today D64.9 - Anemia, unspecified Comprehensive Metabolic Profil Today D64.9 - Anemia, unspecified Ferritin Today D64.9 - Anemia, unspecified Iron+Iron Binding Capacity Today D64.9 - Anemia, unspecified CBC W/Diff, Automated Today D64.9 - Anemia, unspecified I have examined the patient and the H&P has been reviewed. There are no clinical changes since date of exam.
[2023-01-17 06:31] VITALS: BP 143/83; PULSE 58; RESP 16; TEMP 36.7; O2SAT 100; BMI 43.0
[2023-01-17] MEDS: Lactated Ringers 1,000 ML 15 ML IV (06:42)
[2023-01-17 06:49] LABS: Internal QC Validated? YES +Cl - CLEAR BKGD; Pregnancy, Urine Negative Negative
--- NOTE | 2023-01-17 07:15 | EGD_PTH ---
PATIENT: PARVIN TORRES LOC: EN U#:[id number] AGE/SX: 27/F ROOM: RE01/17/[address]: Dr. James Garcia DO : 1995 BED: DIS: 01/17/2023 SPEC #: [id number] RECD: 01/17/23 10:42 STATUS: SHARDA REKenrick #: [id number] FUNMILAYO: 01/17/23 07:[address]: James Garcia DEPT: SURGICAL PATHOLOGY RECD BY: Maia Nuñez ENTERED: 01/17/23 11:51 SP TYPE: EGD BIOPSY OT DR: Rick Armas, KNIFE OPERATOR-C Tissues: A - Duodenum, NOS B - Gastric mucous membrane C - Esophagus, NOS Procedures: Special Stain Group II Surgery Specimen Level IV Alcian Blue/PAS (control) HEADER OPERATION: EGD ([facility] [place] PRE-OP DIAGNOSIS: Chronic anemia TISSUE SUBMITTED: A - Duodenum biopsy, B - Gastric body biopsy, C - Distal esophagus biopsy MICROSCOPIC DIAGNOSIS A. Duodenum, biopsy: Consistent with Bean's gland hyperplasia. B. Gastric body, biopsy: Chronic gastritis with focal active gastritis. Benign lymphoid aggregates. See comment. C. Distal esophagus, biopsy: Gastroesophageal junctional mucosa with mild chronic inflammation. No evidence of goblet cell metaplasia. See comment. AM:navjot 01/18/2023 COMMENT B. The results of immunohistochemistry for Helicobacter pylori will be reported separately ([id number]). Immunohistochemistry ([id number]) supports the above diagnosis. C. Alcian blue/PAS stain with matched control supports the above diagnosis. MICROSCOPIC DESCRIPTION Slides are reviewed. GROSS DESCRIPTION A - Received in fixative is one container labeled with the patient's name and designated duodenum biopsy. The specimen consists of multiple irregular fragments of light sierra soft tissue that in aggregate measure 1.0 x 0.6 x 0.1 cm. The specimen is totally submitted in one cassette. B - Received in fixative is one container labeled with the patient's name and designated gastric body. The specimen consists of two irregular fragments of light sierra soft tissue that in aggregate measure 0.7 x 0.5 x 0.1 cm. The specimen is totally submitted in one cassette. C - Received in fixative is one container labeled with the patient's name and designated distal esophagus. The specimen consists of two irregular fragments of light sierra soft tissue that in aggregate measure 0.8 x 0.5 x 0.1 cm. The specimen is totally submitted in one cassette. / AM:navjot 01/17/2023 TC:3 CPT: 47331 x3
--- NOTE | 2023-01-17 07:15 | IMM_PTH ---
PATIENT: PARVIN TORRES LOC: EN U#:[id number] AGE/SX: 27/F ROOM: RE01/17/[address]: Dr. James Garcia DO : 1995 BED: DIS: 01/17/2023 SPEC #: [id number] RECD: 01/17/23 13:44 STATUS: SHARDA REQ #: [id number] FUNMILAYO: 01/17/23 07:[address]: James Garcia DEPT: IMMUNOHISTOCHEMISTRY RECD BY: Debra Thomas ENTERED: 01/17/23 13:45 SP TYPE: IMMUNO OTHR DR: Rick Armas, SUPERINTENDENT CIRCUS-C Tissues: B - Stomach, NOS Procedures: H Pylori (initial) BCL-2 (add) CD20 (add) CD3 (add) CD45 (add) CD5 (add) CD79A (add) KI-67 (add) Pankeratin (add) PHYSICIAN & INSTITUTION [address] [address] SPECIMEN INFORMATION: Tissue Source: B - Gastric body Clinical Info: Chronic anemia Specimen Number: [id number] CPT code: 27466, 77728 x8 METHODOLOGY: Deparaffinized sections of prefer/formalin-fixed tissue or PAP/DQ stained slides are incubated with monoclonal/polyclonal antibodies/oligonucleotide probes. Localization is made via biotin free immunoperoxidase method. Appropriate controls are performed and reacted as expected. Results on target cell population are indicated in the following table: RESULTS: ANTIBODY / CLONE RESULT Block B H Pylori (polyclonal) positive AE1-3 (AE1/AE3/PCK26) negative CD3 (PS1) positive CD5 (SP10) positive CD20 (L26) positive CD45 (RP2/18) positive CD79a (11E3) positive BCL-2 (bcl-2/100/D5) positive Ki-67 (30-9) negative These tests were developed and their performance characteristics determined by [facility]. They may not have been cleared or approved by the U.S. Food and Drug Administration. The FDA has determined that such clearance or approval is not necessary. The above immunohistochemical/dualISH markers are ordered and reviewed by the Pathologist. INTERPRETATION: B. Gastric body, biopsy: Polytypic lymphoid aggregates. Positive for H. pylori organisms. AM:navjot 01/21/2023
[2023-01-17 07:35] VITALS: BP 117/82; BP 143/83; PULSE 78; RESP 16; TEMP 36.5; O2SAT 97
--- NOTE | 2023-01-17 07:37 | OP.EGD_ITS ---
Patient Name: Beatrice Allen Procedure Date: 01/17/2023 7:17 AM Date of : 1995 Age: 27 Procedure: Upper GI endoscopy Indications: Epigastric abdominal pain, Iron deficiency anemia Providers: James Garcia DO Referring MD: James Garcia DO Medicines: Monitored Anesthesia Care Patient Profile: This is a 27 year old female. Refer to note in patient chart for documentation of history and physical. Patient has symptoms. Complications: No immediate complications. Procedure: Pre-Anesthesia Assessment: - Prior to the procedure, a History and Physical was performed, and patient medications and allergies were reviewed. The patient is competent. The risks and benefits of the procedure and the sedation options and risks were discussed with the patient. All questions were answered and informed consent was obtained. Patient identification and proposed procedure were verified by the physician in the pre-procedure area. Mental Status Examination: alert and oriented. Airway Examination: normal oropharyngeal airway and neck mobility. Respiratory Examination: clear to auscultation. CV Examination: normal. Prophylactic Antibiotics: The patient does not require prophylactic antibiotics. Prior Anticoagulants: The patient has taken no previous anticoagulant or antiplatelet agents. ASA Grade Assessment: II - A patient with mild systemic disease. After reviewing the risks and benefits, the patient was deemed in satisfactory condition to undergo the procedure. The anesthesia plan was to use monitored anesthesia care (MAC). Immediately prior to administration of medications, the patient was re-assessed for adequacy to receive sedatives. The heart rate, respiratory rate, oxygen saturations, blood pressure, adequacy of pulmonary ventilation, and response to care were monitored throughout the procedure. The physical status of the patient was re-assessed after the procedure. After obtaining informed consent, the endoscope was passed under direct vision. Throughout the procedure, the patient's blood pressure, pulse, and oxygen saturations were monitored continuously. The Endoscope was introduced through the mouth, and advanced to the second part of duodenum. The upper GI endoscopy was accomplished without difficulty. The patient tolerated the procedure well. Scope In: 7:24:50 AM Scope Out: 7:30:21 AM Total Procedure Duration Time 0 hours 5 minutes 31 seconds Findings: LA Grade A (one or more mucosal breaks less than 5 mm, not extending between tops of 2 mucosal folds) esophagitis with no bleeding was found 37 to 38 cm from the incisors. Biopsies were taken with a cold forceps for histology. Verification of patient identification for the specimen was done. Estimated blood loss was minimal. Patchy mildly erythematous mucosa without bleeding was found in the gastric body. Biopsies were taken with a cold forceps for histology. Verification of patient identification for the specimen was done. Estimated blood loss was minimal. Localized mucosal flattening was found in the duodenal bulb and in the first portion of the duodenum. Biopsies were taken with a cold forceps for histology. Verification of patient identification for the specimen was done. Estimated blood loss was minimal. Impression: - LA Grade A reflux esophagitis. Biopsied. - Erythematous mucosa in the gastric body. Biopsied. - Flattened mucosa was found in the duodenum, diagnostic of celiac disease. Biopsied. Recommendation: - Discharge patient to home. - Resume previous diet. - Continue present medications. - Await pathology results. Procedure Code(s): --- Professional --- 71247, Esophagogastroduodenoscopy, flexible, transoral; with biopsy, single or multiple CPT copyright 2017 [employer]. All rights reserved. The codes documented in this report are preliminary and upon geospatial technologist review may be revised to meet current compliance requirements. James Garcia DO 01/17/2023 7:36:53 AM This report has been signed electronically. Number of Addenda: 0 Note Initiated On: 01/17/2023 7:17 AM
--- NOTE | 2023-01-17 07:37 | OP.CCLET_ITS ---
01/17/2023 Rick Armas Re : Upper GI endoscopy procedure for Beatrice Soriar Chanda This procedure was performed on December. My impressions and recommendations are as follows: Impressions : - LA Grade A reflux esophagitis. Biopsied. - Erythematous mucosa in the gastric body. Biopsied. - Flattened mucosa was found in the duodenum, diagnostic of celiac disease. Biopsied. Recommendations : - Discharge patient to home. - Resume previous diet. - Continue present medications. - Await pathology results. My findings are described in the full procedure note, which is enclosed. If I can be of further assistance, please feel free to contact me at . Sincerely, James Garcia, 01/17/2023 7:36:53 AM This report has been signed electronically.
[2023-01-17 07:40] VITALS: BP 116/77; BP 143/83; PULSE 77; RESP 16; O2SAT 97
[2023-01-17 07:45] VITALS: BP 128/83; BP 143/83; PULSE 67; RESP 18; O2SAT 97
[2023-01-17 07:50] VITALS: BP 123/73; BP 143/83; PULSE 65; RESP 16; TEMP 36.8; O2SAT 96
[2023-01-17 08:00] VITALS: BP 143/83
== END 2023-01-17 08:14 | disposition home or self-care (01) ==
LOC: EN 06:09 → AC 06:10
PROVIDERS: Anesthesiology; PCP Nurse Practitioner Family; Referring Provider Nurse Practitioner Family; Visit Provider Internal Medicine Gastroenterology
PROC: 0DJ08ZZ Inspection of Upper Intestinal Tract, Via Natural or Artificial Opening Endoscopic (ICD-10-PCS; CPT 43235; principal; 2023-01-17 07:10)
DX: D64.9 Anemia, unspecified (principal); K90.0 Celiac disease; J45.909 Unspecified asthma, uncomplicated; K80.20 Calculus of gallbladder without cholecystitis without obstruction; K21.00 Gastro-esophageal reflux disease with esophagitis, without bleeding; B96.81 Helicobacter pylori [H. pylori] as the cause of diseases classified elsewhere; R00.2 Palpitations; I10 Essential (primary) hypertension
CPT/HCPCS: 43239; 81025; 88305; 88313; 88341; 88342; J7120; J2405

== ENCOUNTER 2023-02-01 18:58 | Emergency (ER) | payer MEDICAID, SELFPAY ==
[2023-02-01 18:59] VITALS: BP 149/76; PULSE 111; RESP 18; TEMP 36.6; O2SAT 96; BMI 42.7
--- NOTE | 2023-02-01 19:02 | RAD_ITS ---
EXAM: XR LEFT ANKLE COMPLETE, 3 OR MORE VIEWS CLINICAL INDICATION: INJURY TECHNIQUE: Frontal, lateral and oblique views of the left ankle. COMPARISON: No relevant prior studies available. FINDINGS: BONES/JOINTS: There is a calcaneal spur. There is an enthesophyte involving the posterior superior calcaneus at the site of insertion of the Achilles tendon. No acute fracture. No subluxation. Normal alignment. Preservation of the joint space. No sclerotic or destructive changes observed. SOFT TISSUES: Unremarkable. No soft tissue swelling or gas. No radiopaque foreign body. RAD/Ankle min 3 Views IMPRESSION: There is a calcaneal spur. There is an enthesophyte involving the posterior superior calcaneus at the site of insertion of the Achilles tendon. Electronically Signed: Anibal Alexandra MD at 19:41 EDT ,
--- NOTE | 2023-02-01 19:18 | RAD_ITS ---
EXAM: XR LEFT FOOT COMPLETE, 3 OR MORE VIEWS CLINICAL INDICATION: INJURY TECHNIQUE: Frontal, lateral and oblique views of the left foot. COMPARISON: No relevant prior studies available. FINDINGS: BONES/JOINTS: There is a calcaneal spur. There is an enthesophyte involving the posterior superior calcaneus at the site of insertion of the Achilles tendon. No acute fracture. No subluxation. Normal alignment. Preservation of the joint space. No sclerotic or destructive changes observed. SOFT TISSUES: Unremarkable. No soft tissue swelling or gas. No radiopaque foreign body. RAD/Foot min 3 Views IMPRESSION: There is a calcaneal spur. There is an enthesophyte involving the posterior superior calcaneus at the site of insertion of the Achilles tendon. Electronically Signed: Anibal Alexandra MD at 19:41 EDT ,
--- NOTE | 2023-02-01 19:55 | EDS_ITS ---
HPI History of Present Illness Chief Complaint: Lower Extremity Injury Informant: patient Narrative Narrative: 27-year-old female presenting to the emergency department with chief complaint of left foot and ankle pain. Patient was with her child in the backyard when she stepped in a hole falling forward injuring the left foot and ankle. She has been using crutches that she was able to borrow. She notes swelling over the dorsal lateral aspect of the left foot. [facility] Medical History Acute otitis externa of right ear ADD (attention deficit disorder) Anemia Anxiety Asthma Asthma Cholelithiasis Elevated d-dimer Infected dental caries Internal derangement of left shoulder Low iron Marijuana use Non-smoker Physical exam, pre-employment Restless legs Shortness of breath on exertion Wears glasses Home Medications albuterol 90 mcg/actuation aerosol inhaler 90 mcg inhalation PRN SOB 01/15/23 [History Last Taken Unknown] bismuth subsalicylate 525 mg tablet 525 mg PO TID 2 weeks #42 tabs 01/28/23 [Rx Last Taken Unknown] clarithromycin 500 mg tablet 500 mg PO BID 2 weeks #28 tabs 01/28/23 [Rx Last Taken Unknown] metronidazole 500 mg tablet 500 mg PO BID 14 days #28 tabs 01/28/23 [Rx Last Taken Unknown] pantoprazole 40 mg tablet,delayed release (Protonix) 40 mg PO BID #42 tabs 01/28/23 [Rx Last Taken Unknown] Allergy/AdvReac Type Severity Reaction Status Date / Time No Known Allergies Allergy Verified 02/01/23 19:00 Family History Aunt Breast cancer, Onset Age: 50 Grandfather Diabetes Grandmother Diabetes Surgical History History of History of tonsillectomy Hx laparoscopic cholecystectomy Social History household members: spouse number of children: 2 current occupational status: unemployed current occupation: unemployed pets and animals: Yes pets and animals: cat(s) and dog(s) sexually active: Yes Smoking Status: Never smoker alcohol intake: current alcohol intake frequency: holidays/special occasions only substance use type: does not use, former substance user Date of last use: smokes marijuana and marijuana what type of physical activity do you participate in: none seatbelt use: always do you feel safe at home: Yes additional social history: - Brandone ROS ROS ED Constitutional Constitutional ED: Denies chills or weight loss Eyes Eyes: Denies change in vision or diplopia ENT ENT ED: Denies ear pain, rhinorrhea or sore throat Cardiovascular Cardiovascular: Denies chest pain, orthopnea, palpitations or racing heartbeat Respiratory/Chest Respiratory/Chest: Denies cough, dyspnea or orthopnea Gastrointestinal Gastrointestinal: Denies abdominal pain, diarrhea, nausea or vomiting Genitourinary Genitourinary ED: Denies dysuria, hematuria or urinary frequency Musculoskeletal Musculoskeletal: Reports other Details: Left foot ankle. ; Denies arthralgias or myalgias Integumentary Denies abscess or rash Neurologic Neurologic: Denies headache(s) or weakness Psychiatric Psychiatric: Denies anxiety, depression, suicidal ideation or suicidal thoughts Endocrine Endocrinology: Denies polydipsia, polyphagia or polyuria Allergic/Immunologic Allergic/Immunologic ED: Denies mouth swelling, tongue swelling or urticaria EXAM Physical Exam Const Vital Signs: 02/01/23 18:59 Temperature 98 F Temperature Source Temporal Pulse Rate 111 H Respiratory Rate 18 Blood Pressure 149/76 H Blood Pressure Mean 100 Pulse Ox 96 Oxygen Delivery Method Room Air Positive well nourished and well developed General Appearance ED: well developed HEENT Reports normocephalic, head/scalp atraumatic and moist mucous membranes Eyes PERRL and EOMs intact bilaterally Neck no lymphadenopathy, supple and no JVD Resp normal respiratory effort and clear to auscultation bilaterally Cardio regular rate, regular rhythm and no murmurs GI normal to inspection, nondistended, normoactive bowel sounds and non-tender Palpation: soft Back/Spine no CVA tenderness and normal ROM Extremity Extremity Narrative: There is some focal swelling and ecchymosis noted over the dorsal lateral aspect of the left foot. There is no fifth metatarsal pain. No fibular head pain. No medial lateral or posterior malleoli or pain. Neurovascular intact. Negative Nunez's test. She is able to dorsi and plantarflex. General Extremety ED: Negative for edema General Extremity: Negative for edema Neuro oriented x3 and CN's II-XII intact bilaterally Sensorium / Orientation: alert Motor Exam: strength 5/5 throughout Psych mental status grossly normal Mood & Affect: Negative for depressed or tearful Skin no rashes or lesions noted and no wounds MDM MDM MDM Narrative Medical decision making narrative: X-rays of the foot and ankle were obtained. These demonstrate no acute fracture. Spurring was noted. Patient will be placed in an [place] wrap and given Motrin for pain crutches as needed for weightbearing. Patient was advised expectant time to recovery 10 to 14 days or possibly longer. She is to follow- up if not improving Radiography Diagnostic Testing: Clinical Impression(s) from Imaging Studies Ankle X-Ray 02/01/23 19:02 IMPRESSION: There is a calcaneal spur. There is an enthesophyte involving the posterior superior calcaneus at the site of insertion of the Achilles tendon. Electronically Signed: Anibal Alexandra MD at 19:41 EDT , Foot X-Ray 02/01/23 19:18 IMPRESSION: There is a calcaneal spur. There is an enthesophyte involving the posterior superior calcaneus at the site of insertion of the Achilles tendon. Electronically Signed: Anibal Alexandra MD at 19:41 EDT , Discharge Plan Triage Chief Complaint: Lower Extremity Injury ED Provider: Jose Posadas Dx/Rx/DC Orders Clinical Impression: Sprain of foot, left Instructions: ED Foot Sprain Prescriptions: No Action albuterol 90 mcg/actuation aerosol 90 mcg inhalation PRN clarithromycin 500 mg tablet 500 mg PO BID 14 Days Qty: 28 0RF metronidazole 500 mg tablet 500 mg PO BID 14 Days Qty: 28 0RF pantoprazole [Protonix] 40 mg tablet,delayed release (DR/EC) 40 mg PO BID Qty: 42 0RF Rx Instructions: take two times a day for two weeks then daily, then stop bismuth subsalicylate 525 mg tablet 525 mg PO TID 14 Days Qty: 42 0RF Primary Care Provider: Rick Armas NP Referrals: Rick Armas NP, [facility] [Primary Care Provider] - 10-14 Days if not better Disposition Disposition: Home, Self Care
[2023-02-01] MEDS: Ibuprofen 400 MG Tablet 800 MG PO (20:04)
== END 2023-02-01 20:09 | disposition home or self-care (01) ==
PROVIDERS: Emergency Provider Emergency Medicine; PCP Nurse Practitioner Family; Visit Provider Emergency Medicine
DX: S93.602A Unspecified sprain of left foot, initial encounter (principal); J45.909 Unspecified asthma, uncomplicated; Z90.49 Acquired absence of other specified parts of digestive tract; W17.2XXA Fall into hole, initial encounter; Y92.096 Garden or yard of other non-institutional residence as the place of occurrence of the external cause
CPT/HCPCS: 73610; 73630; 99284

== ENCOUNTER 2023-02-07 17:35 | Emergency (ER) | payer MEDICAID, SELFPAY ==
[2023-02-07 17:35] VITALS: BP 124/89; PULSE 93; RESP 17; TEMP 36.3; O2SAT 100; BMI 42.6
--- NOTE | 2023-02-07 17:59 | CT_ITS ---
INDICATION: back pain EXAMINATION: CT LUMBAR SPINE - CT Spine Lumbar W/O Contrast Injection TECHNIQUE: Helically acquired images were obtained of the lumbar spine. 2D reformats were reviewed. A radiation dose optimization technique was used for this scan. IV Contrast dosage and agent: None. RADIATION DOSAGE (If Supplied By Facility): CTDIvol = ( 30.81 ) mGy, DLP = ( 933.78 ) mGycm COMPARISON: None. FINDINGS: VERTEBRAE: No fracture or traumatic subluxation. No discrete lytic or blastic abnormality observed. Normal alignment. DISCS and SPINAL CANAL: Disc heights are preserved. L3-4: Small central disc protrusion. No canal stenosis. Foramina are patent. L4-5: Moderate right paracentral disc protrusion causing mild canal stenosis. Foramina are patent. L5-S1: Small central disc protrusion. No canal or foraminal stenosis. VISUALIZED ABDOMEN: Visualized abdominal aorta is not dilated. There is no retroperitoneal adenopathy. CT/Spine Lumbar without Contrast IMPRESSION: No evidence of fracture. Moderate L4-5 disc protrusion causing mild canal stenosis. Small protrusions at L3-4 and L5-S1. Electronically Signed: Shelly Mayfield MD at 18:53 EDT Reading Location ID and State: [id number] / Tel , Service support ,
--- NOTE | 2023-02-07 17:59 | CT_ITS ---
INDICATION: right hip pain EXAMINATION: CT PELVIS BONE - CT Pelvis W/O Contrast Injection TECHNIQUE: Routine noncontrast bone CT protocol was performed of the pelvis. 2-D reformats were performed by the technologist. A radiation dose optimization technique was used for this scan. IV Contrast dosage and agent: None. RADIATION DOSAGE (If Supplied By Facility): CTDIvol = ( 33.71 ) mGy, DLP = ( 1001.46 ) mGycm COMPARISON: None submitted. FINDINGS: No fracture or dislocation. Hip joints are maintained. L4-5 disc protrusion. Trace free fluid in the cul-de-sac. No bowel obstruction. Normal visualized appendix. Bladder is decompressed. CT/Pelvis without IV Contrast IMPRESSION: No evidence of pelvic fracture. L4-5 disc protrusion. Electronically Signed: Shelly Mayfield MD at 18:46 EDT Reading Location ID and State: [id number] / Tel , Service support ,
--- NOTE | 2023-02-07 18:01 | ED.VIS.BACK ---
HPI History of Present Illness Chief Complaint: Back Narrative Narrative: 27-year-old female presenting with lumbar radiculopathy symptoms. She has had this for weeks now. She has been seen in the ER and by her primary care physician. She is on meloxicam. She states is not helping. Patient having trouble walking and getting around. She notes he has not had any direct trauma. No loss of bladder or bowel control. No saddle anesthesia/paresthesia. No urinary symptoms. Patient does have history of kidney stones. She states the pain is in her right lumbar paraspinal musculature and radiates into her gluteal region. Patient also states that her right hip is now starting to pop when she walks. She denies any trauma to the right hip. [facility] Medical History Acute otitis externa of right ear ADD (attention deficit disorder) Anemia Anxiety Asthma Asthma Cholelithiasis Elevated d-dimer Infected dental caries Internal derangement of left shoulder Low iron Marijuana use Non-smoker Physical exam, pre-employment Restless legs Shortness of breath on exertion Wears glasses Home Medications albuterol 90 mcg/actuation aerosol inhaler 90 mcg inhalation PRN SOB 01/15/23 [History Last Taken Unknown] bismuth subsalicylate 525 mg tablet 525 mg PO TID 2 weeks #42 tabs 01/28/23 [Rx Last Taken Unknown] clarithromycin 500 mg tablet 500 mg PO BID 2 weeks #28 tabs 01/28/23 [Rx Last Taken Unknown] metronidazole 500 mg tablet 500 mg PO BID 14 days #28 tabs 01/28/23 [Rx Last Taken Unknown] pantoprazole 40 mg tablet,delayed release (Protonix) 40 mg PO BID #42 tabs 01/28/23 [Rx Last Taken Unknown] prednisone 50 mg tablet 50 mg PO DAILY #3 tabs 02/07/23 [Rx Last Taken Unknown] tramadol 50 mg tablet 50 mg PO Q8H PRN pain 3 days #12 tabs 02/07/23 [Rx Last Taken Unknown] Allergy/AdvReac Type Severity Reaction Status Date / Time No Known Allergies Allergy Verified 02/07/23 17:37 Family History Aunt Breast cancer, Onset Age: 50 Grandfather Diabetes Grandmother Diabetes Surgical History History of History of tonsillectomy Hx laparoscopic cholecystectomy Social History household members: spouse number of children: 2 current occupational status: unemployed current occupation: unemployed pets and animals: Yes pets and animals: cat(s) and dog(s) sexually active: Yes Smoking Status: Never smoker alcohol intake: current alcohol intake frequency: holidays/special occasions only substance use type: does not use, former substance user Date of last use: smokes marijuana and marijuana what type of physical activity do you participate in: none seatbelt use: always do you feel safe at home: Yes additional social history: - Brandone ROS ROS ED Constitutional Constitutional ED: Denies chills, fever(s) or sweats Eyes Eyes: Denies blurry vision or change in vision ENT ENT ED: Denies ear pain or sore throat Cardiovascular Cardiovascular: Denies chest pain, palpitations or racing heartbeat Respiratory/Chest Respiratory/Chest: Denies cough, dyspnea or sputum Gastrointestinal Gastrointestinal: Denies abdominal pain, constipation, diarrhea, nausea or vomiting Genitourinary Genitourinary ED: Denies dysuria, hematuria or urinary frequency Musculoskeletal Musculoskeletal: Reports back pain; Denies arthralgias, myalgias or neck pain Integumentary Denies abscess, Abrasions or rash Neurologic Neurologic: Denies headache(s), paresthesias or weakness Psychiatric Psychiatric: Denies anxiety, depression, suicidal ideation or suicidal thoughts Endocrine Endocrinology: Denies polydipsia or polyuria EXAM Physical Exam Const Vital Signs: 02/07/23 17:35 Temperature 97.4 F L Temperature Source Temporal Pulse Rate 93 Respiratory Rate 17 Blood Pressure 124/89 H Blood Pressure Mean 100 Pulse Ox 100 Oxygen Delivery Method Room Air Positive well nourished General Appearance ED: NAD HEENT Reports moist mucous membranes Resp normal respiratory effort Cardio regular rate and regular rhythm GI normal to inspection, nondistended, normoactive bowel sounds Back/Spine Back/Spine Narrative: Right lumbar paraspinal musculature tenderness. This radiates into the right gluteal region. No midline deformities or step-offs. Extremity normal to inspection MDM MDM MDM Narrative Medical decision making narrative: Patient presenting with back and hip pain. Differential includes compression fracture, degenerative disc disease, lumbar radiculopathy, arthritis. Patient medicated with [place]. Obtained a urinalysis which is negative for infection and blood. CT of the lumbar spine and pelvis were obtained and this only shows at L4-L5 disc causing mild stenosis, mild protrusions at L3-L4 and L5-S1 as well. I gave the patient a prescription for Ultram. She is to follow-up with her PCP as he ordered physical therapy today for her to start. Precautions discussed. Impression: 1. L4-L5 disc protrusion 2. L3-L4 disc protrusion 3. L5-S1 disc 4. Right hip pain Lab Data Attestation: I reviewed the patient's lab results. Labs: Laboratory Results - last 24 hr 02/07/23 18:15 Urine Color Yellow Urine Clarity Sl. Cloudy Urine pH 6.0 Ur Specific [place] 1.020 Urine Protein 30 H Urine Glucose (UA) Normal Urine Ketones 5 H Urine Occult Blood Negative Urine Nitrite Negative Urine Bilirubin Negative Urine Urobilinogen Normal Ur Leukocyte Esterase 500 H Urine RBC 0 SEEN Urine WBC 10-25 SEEN Ur Squamous Epith Cells 10-25 SEEN Urine Bacteria 1+ Urine Mucus 0 SEEN Radiography Diagnostic Testing: Clinical Impression(s) from Imaging Studies Lumbar Spine CT 02/07/23 17:59 IMPRESSION: No evidence of fracture. Moderate L4-5 disc protrusion causing mild canal stenosis. Small protrusions at L3-4 and L5-S1. Electronically Signed: Shelly Mayfield MD at 18:53 EDT Reading Location ID and State: [place] Harrell MD Tel , Service support , Pelvis CT 02/07/23 17:59 IMPRESSION: No evidence of pelvic fracture. L4-5 disc protrusion. Electronically Signed: Shelly Mayfield MD at 18:46 EDT Reading Location ID and State: [place] Harrell MD Tel , Service support , Discharge Plan Triage Chief Complaint: Back ED Provider: Jeremiah Edmondson Dx/Rx/DC Orders Instructions: Understanding Lumbar Radiculopathy Prescriptions: New tramadol 50 mg tablet 50 mg PO Q8H PRN (Reason: pain) 3 Days Qty: 12 0RF prednisone 50 mg tablet 50 mg PO DAILY Qty: 3 0RF No Action albuterol 90 mcg/actuation aerosol 90 mcg inhalation PRN clarithromycin 500 mg tablet 500 mg PO BID 14 Days Qty: 28 0RF metronidazole 500 mg tablet 500 mg PO BID 14 Days Qty: 28 0RF pantoprazole [Protonix] 40 mg tablet,delayed release (DR/EC) 40 mg PO BID Qty: 42 0RF Rx Instructions: take two times a day for two weeks then daily, then stop bismuth subsalicylate 525 mg tablet 525 mg PO TID 14 Days Qty: 42 0RF Primary Care Provider: Rick Armas NP Referrals: Rick Armas NP, [facility] NURSE[facility] [Primary Care Provider] - Disposition Disposition: Home, Self Care
[2023-02-07 18:22] LABS: Mucous, Urine 0 SEEN /hpf (<or=2+); Red Blood Cells-Urine 0 SEEN /hpf (0-5)
[2023-02-07] MEDS: HYDROcodone Bitartrate/Apap 5/325 Tablet PO (18:32)
[2023-02-07 18:49] LABS: Color, Urine Yellow (Yellow); Glucose, Dipstick Normal (Normal); Ketone-Dipstick 5 mg/dl (Negative); Leukocyte Esterase-Dipstick 500 /ul (Negative); Nitrite-Dipstick Negative (Negative); Occult Blood-Urine Negative /ul (Negative); Protein-Dipstick 30 mg/dl (Negative); Urine Bilirubin Dipstick Negative (Negative); Urine Clarity Sl. Cloudy (Clear); Urine Urobilinogen Normal (Normal)
[2023-02-07 18:59] LABS: Bacteria 1+ /hpf (None Seen); Squamous Epithelial Cells - UA 10-25 SEEN /hpf (5-10); White Blood Cells 10-25 SEEN /hpf (0-5)
[2023-02-07] MEDS: predniSONE 20 MG Tablet 60 MG PO (19:35)
== END 2023-02-07 19:38 | disposition home or self-care (01) ==
PROVIDERS: Emergency Provider Student in an Organized Health Care Education/Training Program; PCP Nurse Practitioner Family; Visit Provider Student in an Organized Health Care Education/Training Program
DX: M51.26 Other intervertebral disc displacement, lumbar region (principal); M51.27 Other intervertebral disc displacement, lumbosacral region
CPT/HCPCS: 72131; 72192; 81001; 99283; J7030

== ENCOUNTER 2023-04-29 16:43 | Emergency (ER) | payer MEDICAID, SELFPAY ==
[2023-04-29 16:44] VITALS: BP 147/102; PULSE 75; RESP 18; TEMP 36.1; O2SAT 100; BMI 42.4
--- NOTE | 2023-04-29 17:04 | CT_ITS ---
EXAM: CT ABDOMEN AND PELVIS WITH INTRAVENOUS CONTRAST CLINICAL INDICATION: RLQ pain TECHNIQUE: Helically acquired images were obtained of the abdomen and pelvis with intravenous contrast. This CT exam was performed using one or more of the following dose reduction techniques: automated exposure control, adjustment of the mA and/or kV according to patient size, and/or use of iterative reconstruction technique. CONTRAST: IV 100mL [id number]-300 COMPARISON: 11/12/2016. FINDINGS: LOWER THORAX: Unremarkable. Lung bases are clear. No cardiomegaly. No significant pericardial effusion. ABDOMEN: LIVER: Unremarkable. Homogeneous. No focal mass. GALLBLADDER AND BILE DUCTS: Unremarkable. No calcified gallstones. No gallbladder distention or wall edema. No intra- or extrahepatic biliary ductal dilation. PANCREAS: Unremarkable. No focal cystic or solid mass. SPLEEN: Unremarkable. Normal size without focal cystic or solid mass. ADRENALS: Unremarkable. No nodules. KIDNEYS AND URETERS: Unremarkable. Normal renal size and position. No hydronephrosis. STOMACH AND BOWEL: Unremarkable. No stomach or bowel distention. No focal inflammatory change. PELVIS: APPENDIX: Normal visualized appendix. BLADDER: Unremarkable. REPRODUCTIVE: Unremarkable as visualized. No mass. ABDOMEN and PELVIS: INTRAPERITONEAL SPACE: Unremarkable. No ascites or other fluid collection. No free air. BONES/JOINTS: Unremarkable. No suspicious lytic or blastic abnormality. SOFT TISSUES: Unremarkable. No discrete abdominal or pelvic wall hernia. VASCULATURE: Unremarkable. Abdominal aorta is normal in caliber. LYMPH NODES: Unremarkable. No enlarged lymph nodes. OTHER FINDINGS: Moderate-sized L4-[address]/Abdomen/Pelvis W IV Cont ONLY IMPRESSION: No acute findings. Moderate-sized L4-5 disc protrusion. Electronically Signed: Shelly Mayfield MD at 18:27 EDT Reading Location ID and State: [id number] / Tel , Service support ,
--- NOTE | 2023-04-29 17:05 | EDS_ITS ---
HPI History of Present Illness Chief Complaint: Abd Pain Detail of Chief Complaint: Right lower quadrant pain Informant: patient Onset/Context/Timing Onset: Today Current Severity: Moderate Maximum Severity: Moderate Narrative Narrative: Patient presents secondary right lower quadrant pain. She states she is felt nauseated all day. Her symptoms seem to worsen after eating breakfast this morning. Around 2:30 this afternoon she developed right lower quadrant abdominal pain that has been persistent. She states her temperature was 99.8. She denies urinary symptoms. Last menstrual cycle was about 10 days ago. [facility] Medical History (Updated 04/29/23 @ 18:[address] Chey Lanier MD) Acute otitis externa of right ear ADD (attention deficit disorder) Anemia Anxiety Asthma Cholelithiasis Elevated d-dimer Infected dental caries Internal derangement of left shoulder Low iron Marijuana use Non-smoker Physical exam, pre-employment Restless legs Shortness of breath on exertion Wears glasses Home Medications albuterol 90 mcg/actuation aerosol inhaler 90 mcg inhalation PRN SOB 01/15/23 [History Last Taken Unknown] pantoprazole 40 mg tablet,delayed release (Protonix) 40 mg PO BID #42 tabs 01/28/23 [Rx Last Taken Unknown] prednisone 50 mg tablet 50 mg PO DAILY #3 tabs 02/07/23 [Rx Last Taken Unknown] tramadol 50 mg tablet 50 mg PO Q8H PRN pain 3 days #12 tabs 02/07/23 [Rx Last Taken Unknown] methylprednisolone 4 mg tablets in a dose pack (Medrol (Leland)) See Rx Instructions PO PER PKG DIR #21 tabs 03/12/23 [Rx Last Taken Unknown] Allergy/AdvReac Type Severity Reaction Status Date / Time No Known Allergies Allergy Verified 04/29/23 16:45 Family History Aunt Breast cancer, Onset Age: 50 Grandfather Diabetes Grandmother Diabetes Surgical History History of History of tonsillectomy Hx laparoscopic cholecystectomy Social History household members: spouse number of children: 2 current occupational status: unemployed current occupation: unemployed pets and animals: Yes pets and animals: cat(s) and dog(s) sexually active: Yes Smoking Status: Never smoker alcohol intake: current alcohol intake frequency: holidays/special occasions only substance use type: does not use, former substance user Date of last use: smokes marijuana and marijuana what type of physical activity do you participate in: none seatbelt use: always do you feel safe at home: Yes additional social history: - Brandone ROS ROS ED Constitutional Constitutional ED: Denies chills or fever(s) Eyes Eyes: Denies discharge from eye(s) ENT ENT ED: Denies discharge from eye(s), rhinorrhea or sore throat Cardiovascular Cardiovascular: Denies chest pain or palpitations Respiratory/Chest Respiratory/Chest: Denies cough or dyspnea Gastrointestinal Gastrointestinal: Reports abdominal pain and nausea; Denies diarrhea or vomiting Genitourinary Genitourinary ED: Denies dysuria Musculoskeletal Musculoskeletal: Denies back pain or extremity pain Integumentary Denies Abrasions or rash Neurologic Neurologic: Denies headache(s) or weakness Psychiatric Psychiatric: Denies anxiety or depression Allergic/Immunologic Allergic/Immunologic ED: Denies lip swelling or urticaria EXAM Physical Exam Const Vital Signs: 04/29/23 16:44 Temperature 97 F L Temperature Source Temporal Pulse Rate 75 Respiratory Rate 18 Blood Pressure 147/102 H Blood Pressure Mean 117 Pulse Ox 100 Oxygen Delivery Method Room Air Positive well nourished and well developed General Appearance ED: well developed HEENT Reports moist mucous membranes Neck no lymphadenopathy Chest Wall inspection of chest normal and palpation of chest normal Resp normal respiratory effort and clear to auscultation bilaterally Cardio regular rate and regular rhythm GI GI Narrative: Abdomen soft with moderate tenderness in the right lower quadrant. No guarding or rebound. Active bowel sounds are noted. Extremity normal to inspection Neuro oriented x3 and no sensory deficits noted Motor Exam: strength 5/5 throughout Psych mental status grossly normal Skin no rashes or lesions noted MDM MDM MDM Narrative Medical decision making narrative: IV line established. Patient given morphine and Zofran along with IV fluids. Labwork obtained to evaluate for leukocytosis, anemia, and electrolyte derangement. Urinalysis obtained to evaluate for infection/hematuria. CT scan of the abdomen and pelvis with IV contrast obtained to evaluate for appendicitis, kidney stone, ovarian cyst. History & Record Review Discussion w/independent historian: Patient Lab Data Attestation: I reviewed the patient's lab results. Labs: Laboratory Results - last 24 hr 04/29/23 04/29/23 17:10 18:03 WBC 7.2 RBC 4.91 Hgb 10.7 L Hct 35.7 L MCV 72.7 L MCH 21.8 L MCHC 30.0 L RDW Std Deviation 43.7 RDW Coeff of Kel 16.6 H Plt Count 400 MPV 9.8 Immature Gran % (Auto) 0.400 Neut % (Auto) 62.2 Lymph % (Auto) 27.1 [place] % (Auto) 5.1 Eos % (Auto) 4.4 Baso % (Auto) 0.8 Absolute Neuts (auto) 4.5 Absolute Lymphs (auto) 1.95 Nucleated RBC % 0 Sodium 141 Potassium 3.5 Chloride 107 Carbon Dioxide 31.0 Anion Gap 3 L BUN 14 Creatinine 0.86 Estim Creat Clear Calc 77.03 Est GFR (MDRD) Af Amer 100 Est GFR (MDRD) Non-Af 83 BUN/Creatinine Ratio 16.2 Glucose 102 Calcium 9.1 Serum , Qual NEGATIVE Urine Color Yellow Urine Clarity Clear Urine pH 6.5 Ur Specific [place] 1.015 Urine Protein Negative Urine Glucose (UA) Normal Urine Ketones Negative Urine Occult Blood Negative Urine Nitrite Negative Urine Bilirubin Negative Urine Urobilinogen Normal Ur Leukocyte Esterase Negative Urine RBC 0 SEEN Urine WBC 0 SEEN Ur Squamous Epith Cells 5-10 SEEN Urine Bacteria 0 SEEN Urine Mucus 0 SEEN Radiography Diagnostic Testing: Clinical Impression(s) from Imaging Studies Abdomen/Pelvis CT 04/29/23 17:04 IMPRESSION: No acute findings. Moderate-sized L4-5 disc protrusion. Electronically Signed: Shelly Mayfield MD at 18:27 EDT Reading Location ID and State: [id number] / Tel , Service support , Treatment and Re-Evaluation :: CBC was white count of 7.2 with normal differential. Hemoglobin slightly low at 10.7. Chemistry studies are unremarkable. test negative. Urinalysis reveals no evidence of infection or hematuria. CT scan of the abdomen pelvis reveals no acute abnormalities. On repeat evaluation patient is resting comfortably. Test results are discussed with her. She will take Tylenol or ibuprofen at home for pain. She is to follow a bland diet and slowly advance. Return instructions are given. Patient is comfortable with the plan. Discharge Plan Triage Chief Complaint: Abd Pain ED Provider: Chey Lanier Dx/Rx/DC Orders Clinical Impression: Abdominal pain Instructions: ED Abdominal Pain Unkn Cause Fem Prescriptions: No Action methylprednisolone [Medrol (Leland)] 4 mg tablets,dose pack See Rx Instructions PO PER PKG DIR Qty: 21 0RF Rx Instructions: PO PER PKG DIR albuterol 90 mcg/actuation aerosol 90 mcg inhalation PRN tramadol 50 mg tablet 50 mg PO Q8H PRN (Reason: pain) 3 Days Qty: 12 0RF prednisone 50 mg tablet 50 mg PO DAILY Qty: 3 0RF pantoprazole [Protonix] 40 mg tablet,delayed release (DR/EC) 40 mg PO BID Qty: 42 0RF Rx Instructions: take two times a day for two weeks then daily, then stop Primary Care Provider: Rick Armas NP Referrals: Rick Armas NP, PRESCHOOL DIRECTOR-C [Primary Care Provider] - 3-5 Days if not improving Disposition Disposition: Home, Self Care
[2023-04-29] MEDS: Ondansetron 4 MG/2 ML Vial IV (17:15)
[2023-04-29] MEDS: Morphine 4 MG/ML Syringe IV (17:15)
[2023-04-29 17:24] LABS: Absolute Lymphocyte Count 1.95 X10^3/uL (0.83-4.51); Absolute Neutrophil Count 4.5 X10^3/uL (2.0-7.7); Basophil# 0.06 X10^3/uL; Basophil% 0.8 % (0-1); Eosinophil# 0.32 X10^3/uL; Eosinophils% 4.4 % (0-5); Hematocrit 35.7 % (37-47); Hemoglobin 10.7 g/dL (12.0-15.0); Lymphocyte # 1.95 X10^3/ul (0.83-4.51); Lymphocyte % 27.1 % (19-41); Mean Corpuscular Hgb 21.8 pg (27.0-32.0); Mean Corpuscular Volume 72.7 fL (81-99); Mean Platelet Vol. 9.8 fl (6.2-12.0); Monocyte# 0.37 X10^3/uL; Monocyte% 5.1 % (0-10); NRBC Flagged by Analyzer 0 % (0-5); Neutrophil # 4.47 X10^3/uL (2.7-7.7); Neutrophil % 62.2 % (47-70); Platelet Count 400 K/mm3 (150-450); RBC Distribution Width CV 16.6 % (11.6-14.6); RBC Distribution Width SD 43.7 fl (35.1-43.9); Red Blood Count 4.91 M/mm3 (4.2-5.4); White Blood Count 7.2 K/mm3 (4.4-11.0)
[2023-04-29] MEDS: 0.9% Normal Saline (1000mL) 1,000 ML 150 ML IV (17:29)
[2023-04-29 17:30] LABS: Internal QC Validated? YES +Cl - CLEAR BKGD; Pregnancy, Serum, hCG Quali. NEGATIVE Negative
[2023-04-29 17:35] LABS: Anion Gap 3 (5-15); BUN 14 mg/dL (7-18); BUN/Creat Ratio 16.2 RATIO (10-20); Calcium,Total 9.1 mg/dL (8.5-10.1); Chloride 107 mmol/L (98-107); Creatinine, Serum 0.86 mg/dL (0.55-1.02); EST Glomerular Filtration Rate 83 mL/min (>60); Est Glom Filt Rate - Afr Amer 100 mL/min (>60); Estimated Creatinine Clearance 77.03 ml/min; Glucose 102 mg/dL (74-106); Potassium 3.5 mmol/L (3.5-5.1); Sodium Level 141 mmol/L (136-145)
[2023-04-29 18:17] LABS: Bacteria 0 SEEN /hpf (None Seen); Mucous, Urine 0 SEEN /hpf (<or=2+); Red Blood Cells-Urine 0 SEEN /hpf (0-5); White Blood Cells 0 SEEN /hpf (0-5)
[2023-04-29 18:19] LABS: Color, Urine Yellow (Yellow); Glucose, Dipstick Normal (Normal); Ketone-Dipstick Negative (Negative); Leukocyte Esterase-Dipstick Negative /ul (Negative); Nitrite-Dipstick Negative (Negative); Occult Blood-Urine Negative /ul (Negative); Protein-Dipstick Negative (Negative); Specific Gravity, Urine 1.015 (1.002-1.030); Urine Bilirubin Dipstick Negative (Negative); Urine Clarity Clear (Clear); Urine Urobilinogen Normal (Normal); Urine pH 6.5 (5.0 - 8.0)
[2023-04-29 18:24] LABS: Squamous Epithelial Cells - UA 5-10 SEEN /hpf (5-10)
== END 2023-04-29 18:58 | disposition home or self-care (01) ==
PROVIDERS: Emergency Provider Emergency Medicine; PCP Nurse Practitioner Family; Visit Provider Emergency Medicine
DX: R10.31 Right lower quadrant pain (principal); J45.909 Unspecified asthma, uncomplicated; Z90.49 Acquired absence of other specified parts of digestive tract; R11.0 Nausea
CPT/HCPCS: 74177; 80048; 81001; 84703; 85025; 96361; 96374; 96375; 99282; J7030; Q9967; J2405

== ENCOUNTER → 2023-04-30 | Outpatient (CLI) | payer MEDICAID, SELFPAY ==
--- NOTE | 2023-04-30 09:13 | BI_ITS ---
MAMMOGRAPHY - BILATERAL DIAGNOSTIC REASON FOR EXAM: Female, 27 years old. One-week history of the left breast. PERTINENT HISTORY: Aunt with breast cancer. TECHNIQUE: Digital bilateral breast alirio (3D mammographic acquisition) in the CC and MLO projections. 2-D mediolateral oblique (MLO) and craniocaudad (CC) views of both breasts were obtained. CAD: Full Field Digital Mammography with Computer Added Detection was performed. COMPARISON: None. Baseline examination. FINDINGS: Breast Composition: There are scattered areas of fibroglandular density. There are no dominant masses or suspicious calcifications. Benign appearing bilateral axillary lymph nodes. No other significant abnormalities are identified. BI/DIAG MAMM W/CAD, BILAT IMPRESSION: Negative diagnostic mammogram. Targeted ultrasound at the site of the left breast pain is recommended. ASSESSMENT CATEGORY: BIRADS Category 0: Incomplete. Need additional imaging evaluation. A letter regarding these results will be sent to the patient by the facility within 30 days. Approximately 10% of breast cancers are not detected by mammography. A normal mammogram should not delay biopsy of a clinically suspicious abnormality. Electronically Signed: Edvin Church MD at 10:16 EDT ,
--- NOTE | 2023-04-30 09:13 | US_ITS ---
STUDY: ULTRASOUND BREAST - LEFT REASON FOR EXAM: Female, 27 years old. Pain in the left breast. TECHNIQUE: Axial and longitudinal images of the LEFT breast were performed with a high resolution ultrasound transducer. # OF IMAGES: 17 COMPARISON: Comparison is made with prior mammogram done earlier today. FINDINGS: LEFT Breast: The superior central portion of the left breast was examined with ultrasound. No sonographic abnormality is seen. US/Breast Limited Unilateral IMPRESSION: No sonographic abnormality is seen. ASSESSMENT CATEGORY: BIRADS Category 1: Negative. A letter regarding these results will be sent to the patient by the facility within 30 days. Electronically Signed: Edvin Church MD at 14:23 EDT ,
== END | disposition home or self-care (01) ==
LOC: OPBI 09:12
PROVIDERS: PCP Nurse Practitioner Family; Visit Provider Nurse Practitioner Women's Health
DX: N64.4 Mastodynia (principal)
CPT/HCPCS: 77062; 76642; 77066; G0279

== ENCOUNTER → 2023-05-10 | Outpatient (CLI) | payer MEDICAID, SELFPAY ==
[2023-05-10 12:59] LABS: Vitamin B12 316 pg/mL (211-911)
[2023-05-10 13:11] LABS: hCG Titer Quant., Serum < 1 mIU/mL (1-3)
[2023-05-13 12:08] LABS: Anti-Parietal Cell AB, QN 8.6 Units (0.0-20.0); Gastrin, Serum 14 pg/mL (0-115)
== END | disposition home or self-care (01) ==
PROVIDERS: Internal Medicine Gastroenterology; PCP Nurse Practitioner Family; Referring Provider Advanced Practice Midwife; Visit Provider Advanced Practice Midwife
DX: R11.2 Nausea with vomiting, unspecified (principal); D64.9 Anemia, unspecified
CPT/HCPCS: 36415; 82607; 82746; 82941; 83516; 84702; 86340; 87086; 87088

== ENCOUNTER 2023-07-16 10:38 | Emergency (ER) | payer SELFPAY ==
[2023-07-16 10:39] VITALS: BP 149/97; PULSE 84; RESP 16; TEMP 35.4; O2SAT 100; BMI 41.4
--- NOTE | 2023-07-16 11:14 | EDS_ITS ---
HPI History of Present Illness Chief Complaint: Dental Detail of Chief Complaint: Right upper wisdom tooth pain today. No trauma. Informant: patient Onset/Context/Timing Onset: Today Current Severity: Mild Maximum Severity: Mild Associated Symptoms Assocated Symptom - Dental: Negative for fever, jaw swelling, face swelling, cold sensitivity or hot sensitivity Narrative Narrative: 27-year-old female no seen past medical history. Currently on no medications. No allergies. Complaining of a right upper wisdom tooth she thinks it may be infected. Said bleeding from it today. Denies any trauma. She did not taste visualize any pus. No fever or facial swelling. No trouble swallowing. Prior similar symptoms: Yes Recent Illness/Hospitalization: No PFSH PFSH Medical History ADD (attention deficit disorder) Anemia Anxiety Asthma Cholelithiasis Elevated d-dimer Infected dental caries Internal derangement of left shoulder Low iron Marijuana use Non-smoker Restless legs Shortness of breath on exertion Wears glasses Home Medications albuterol 90 mcg/actuation aerosol inhaler 90 mcg inhalation PRN SOB 01/15/23 [History Last Taken Unknown] penicillin V potassium 500 mg tablet 500 mg PO 4X/DAY #40 tabs 07/16/23 [Rx Last Taken Unknown] Allergy/AdvReac Type Severity Reaction Status Date / Time No Known Allergies Allergy Verified 07/03/23 08:10 Family History Aunt Breast cancer, Onset Age: 50 Grandfather Diabetes Grandmother Diabetes Surgical History History of History of tonsillectomy Hx laparoscopic cholecystectomy Social History household members: spouse number of children: 2 current occupational status: unemployed current occupation: unemployed pets and animals: Yes pets and animals: cat(s) and dog(s) sexually active: Yes Smoking Status: Current every day smoker tobacco type: e-cigarettes alcohol intake: current alcohol intake frequency: holidays/special occasions only substance use type: does not use, former substance user Date of last use: smokes marijuana and marijuana what type of physical activity do you participate in: none seatbelt use: always do you feel safe at home: Yes additional social history: - Brandone ROS ROS ED ROS Narrative Dental pain. No fever. Review of Systems ROS Unobtainable: Denies due to encephalopathy Constitutional Constitutional ED: Denies chills or fever(s) Eyes Eyes: Denies blurry vision ENT ENT ED: Denies ear pain Cardiovascular Cardiovascular: Denies chest pain Respiratory/Chest Respiratory/Chest: Denies cough Gastrointestinal Gastrointestinal: Denies abdominal pain Genitourinary Genitourinary ED: Denies dysuria or hematuria Musculoskeletal Musculoskeletal: Denies arthralgias Integumentary Denies abscess Neurologic Neurologic: Denies headache(s) Psychiatric Psychiatric: Denies anxiety Endocrine Endocrinology: Denies cold intolerance Hematologic/Lymphatic Hematologic/Lymphatic: Denies easy bleeding, easy bruising or lymphadenopathy Allergic/Immunologic Allergic/Immunologic ED: Denies mouth swelling, tongue swelling or urticaria EXAM Physical Exam Narrative Exam Narrative: 27-year-old female no acute distress. Vital signs stable afebrile. HEENT exam, right upper last molar has cavity. Tender. There is no significant gingival swelling. No obvious abscess. No facial swelling. No trouble breathing or swallowing. She does have widespread dental decay and plaques on her teeth. No trismus. No trouble swallowing or breathing. Neck nontender no lymphadenopathy. Lungs clear. Heart regular rhythm. Otherwise exam unremarkable. Const Vital Signs: 07/16/23 10:39 Temperature 95.7 F L Temperature Source Temporal Pulse Rate 84 Respiratory Rate 16 Blood Pressure 149/97 H Blood Pressure Mean 114 Pulse Ox 100 Oxygen Delivery Method Room Air Positive well nourished and well developed; Negative for cachectic, contractures or unkempt General Appearance ED: well developed and NAD; Negative for unkempt, cachectic or contractures Nutritional Appearance: Negative for cachectic HEENT HEENT Narrative: Right upper molar tender. Cavity. No abscess. tenderness; Negative for trauma Mouth ED: Yes oral and palatal mucosa normal, Yes lips normal, Yes tongue normal, Yes salivary gland normal, No mouth trauma and No salivary gland abnormal Mouth: oral and palatal mucosa normal, lips normal, tongue normal, salivary gland normal, No mouth trauma and No salivary gland abnormal Teeth and Gingiva: caries, poor dentition and teeth discoloration; Negative for gingiva abnormal Eyes PERRL and EOMs intact bilaterally General Eye ED: Negative for pale conjunctiva or scleral icterus Neck no lymphadenopathy, supple and no JVD General: Negative for normal visual inspection Lymph Lymphatic: no lymphadenopathy noted; Negative for lymphadenopathy Chest Wall inspection of chest normal and palpation of chest normal Chest: Negative for other Resp normal respiratory effort, no retractions and clear to auscultation bilaterally Effort and Inspection: Negative for other Cardio regular rate, regular rhythm, S1 normal heart sound, S2 normal heart sound and no murmurs Jugular Venous Distention: Negative for other Palpation: Negative for palpable S3 Rate: Negative for bradycardia Rhythm: Negative for abnormal rhythm GI normal to inspection, nondistended, normoactive bowel sounds, non-tender, non- distended and no masses Inspection: Negative for other Palpation: soft Bladder / Kidney Exam: No other Back/Spine no CVA tenderness General Back: Negative for CVA tenderness Thoracic Spine / Upper Back: Negative for thoracic spinal tenderness Extremity normal to inspection and no joint enlargement General Extremety ED: Negative for edema or other findings General Extremity: Negative for edema or other findings Neuro oriented x3, CN's II-XII intact bilaterally, moves all extremities and no focal motor deficits Sensorium / Orientation: alert, oriented to person, oriented to place and oriented to time; Negative for orientation impaired Motor Exam: strength 5/5 throughout Psych mental status grossly normal Appearance: Negative for unkempt Attitude: No agitated Mood & Affect: Negative for depressed, anxious or tearful Skin no rashes or lesions noted and no wounds General Skin Exam: Negative for other MDM MDM MDM Narrative Medical decision making narrative: Right upper dental pain with bleeding. Treated as a possible dental infection with Pen-Vee K. First dose given here. 4 times a day for 10 days. Follow-up with a dentist. Motrin and Tylenol for pain. Discharge Plan Triage Chief Complaint: Dental ED Provider: Pablo Leary Dx/Rx/DC Orders Clinical Impression: Dental infection Instructions: ED Dental Abscess Prescriptions: New penicillin V potassium 500 mg tablet 500 mg PO 4X/DAY Qty: 40 0RF No Action albuterol 90 mcg/actuation aerosol 90 mcg inhalation PRN Primary Care Provider: Rick Armas NP Referrals: Genoveva Castellano [Non-Staff] - As soon as possible Rick Armas KILN PULLER, KILN PULLER-C [Primary Care Provider] - Activity Restrictions/Additional Instructions: Warm salt water rinses in your mouth. Motrin and Tylenol for pain. The antibiotic penicillin VK 4 times a day till gone. Call and follow-up with a dentist to soon as possible. 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 Next of kin: [place] law dictates a PRIORITY LIST for identifying legal decision-maker/legal next of kin in the following order (LNOK): 1st: The patient?s legal guardian, if any 2nd: The patient's spouse (if status is questionable, consult Risk Management) 3rd: The patient?s adult child(hank) (majority, if multiple children) 4th: The patient?s parents 5th: The patient?s adult siblings (majority, if multiple children siblings)
[2023-07-16] MEDS: Penicillin Vk 250 MG Tablet 500 MG PO (11:21)
== END 2023-07-16 11:24 | disposition home or self-care (01) ==
LOC: ED 11:17
PROVIDERS: Emergency Provider Emergency Medicine; PCP Nurse Practitioner Family; Visit Provider Emergency Medicine
DX: K04.7 Periapical abscess without sinus (principal); Z90.49 Acquired absence of other specified parts of digestive tract; F17.290 Nicotine dependence, other tobacco product, uncomplicated
CPT/HCPCS: 99282

== ENCOUNTER 2023-08-19 09:51 | Emergency (ER) | payer SELFPAY ==
[2023-08-19 09:52] VITALS: BP 144/94; PULSE 86; RESP 14; TEMP 36.6; O2SAT 100; BMI 41.1
--- NOTE | 2023-08-19 10:05 | EDS_ITS ---
HPI History of Present Illness Chief Complaint: Back Detail of Chief Complaint: Back pain and right hip pain Informant: patient Narrative Narrative: Patient presents to the emergency department complaining of back pain which is chronic because she has degenerative disc disease. Patient also complains of pain in her right hip for the last several months and at times will complain of some pain radiating down her leg all the way down to her toes and she has had some intermittent numbness and tingling in the right leg. Patient has not seen anybody for this because her insurance does not kick in until August 29. She denies loss of bowel or bladder function. She denies weakness to the extremity. She denies any falls or injuries. [facility] Medical History ADD (attention deficit disorder) Anemia Anxiety Asthma Cholelithiasis Elevated d-dimer Infected dental caries Internal derangement of left shoulder Low iron Marijuana use Non-smoker Restless legs Shortness of breath on exertion Wears glasses Home Medications albuterol 90 mcg/actuation aerosol inhaler 90 mcg inhalation PRN SOB 01/15/23 [History Last Taken Unknown] penicillin V potassium 500 mg tablet 500 mg PO 4X/DAY #40 tabs 07/16/23 [Rx Last Taken Unknown] cyclobenzaprine 10 mg tablet 10 mg PO TID PRN Muscle Spasm #20 TABLETS 08/19/23 [Rx Last Taken Unknown] hydrocodone-acetaminophen 5-325mg 5mg-325mg 1 tab PO Q4H PRN PRN Pain 3 days #14 TABLETS 08/19/23 [Rx Last Taken Unknown] methylprednisolone 4 mg tablets in a dose pack (Medrol ([place])) 4 mg PO DAILY #21 tabs 08/19/23 [Rx Last Taken Unknown] Allergy/AdvReac Type Severity Reaction Status Date / Time No Known Allergies Allergy Verified 08/19/23 09:53 Family History Aunt Breast cancer, Onset Age: 50 Grandfather Diabetes Grandmother Diabetes Surgical History History of History of tonsillectomy Hx laparoscopic cholecystectomy Social History household members: spouse number of children: 2 current occupational status: unemployed current occupation: unemployed pets and animals: Yes pets and animals: cat(s) and dog(s) sexually active: Yes Smoking Status: Current every day smoker tobacco type: e-cigarettes alcohol intake: current alcohol intake frequency: holidays/special occasions only substance use type: does not use, former substance user Date of last use: smokes marijuana and marijuana what type of physical activity do you participate in: none seatbelt use: always do you feel safe at home: Yes additional social history: - [place] ROS ROS ED Review of Systems ROS Unobtainable: other Constitutional Constitutional ED: Reports lethargy; Denies chills, fever(s), sweats or weight loss Eyes Eyes: Denies blurry vision, change in vision or diplopia ENT ENT ED: Denies rhinorrhea or sore throat Cardiovascular Cardiovascular: Denies chest pain, orthopnea or racing heartbeat Respiratory/Chest Respiratory/Chest: Denies cough, dyspnea, dyspnea on exertion, orthopnea or sputum Gastrointestinal Gastrointestinal: Denies abdominal pain, diarrhea, nausea or vomiting Genitourinary Genitourinary ED: Denies dysuria, hematuria or urinary frequency Musculoskeletal Musculoskeletal: Reports back pain and other Details: Right hip pain ; Denies arthralgias, myalgias or neck pain Integumentary Denies abscess, Abrasions or rash Neurologic Neurologic: Denies headache(s) or weakness Psychiatric Psychiatric: Denies anxiety, depression or suicidal thoughts Endocrine Endocrinology: Denies polydipsia, polyphagia or polyuria Hematologic/Lymphatic Hematologic/Lymphatic: Denies easy bleeding, easy bruising or lymphadenopathy Allergic/Immunologic Allergic/Immunologic ED: Denies mouth swelling, tongue swelling or urticaria EXAM Physical Exam Const Vital Signs: 08/19/23 09:52 Temperature 97.8 F Temperature Source Temporal Pulse Rate 86 Respiratory Rate 14 Blood Pressure 144/94 H Blood Pressure Mean 110 Pulse Ox 100 Oxygen Delivery Method Room Air Positive well nourished and well developed General Appearance ED: well developed and NAD HEENT Reports TM's clear and moist mucous membranes normocephalic and atraumatic; Negative for trauma or tenderness Tympanic Membrane ED: Yes TM's clear Eyes PERRL and EOMs intact bilaterally General Eye ED: Negative for pale conjunctiva or scleral icterus Neck no lymphadenopathy, supple and no JVD General: Negative for tenderness Chest Wall inspection of chest normal and palpation of chest normal Chest: Negative for tenderness Resp normal respiratory effort and clear to auscultation bilaterally Effort and Inspection: Negative for respiratory distress or pain with movement Auscultation: Negative for rhonchi, wheezes or diminished lung sounds Cardio regular rate, regular rhythm, S1 normal heart sound, S2 normal heart sound and no murmurs Peripheral Pulses: pulses 2+ throughout GI normal to inspection, nondistended, normoactive bowel sounds, soft to palpation, non-tender, non-distended and no masses Back/Spine no CVA tenderness and no thoracic nor lumbar tenderness Back/Spine Narrative: Mild diffuse tenderness palpation over the lower lumbar spine and right PSIS joint. No tenderness over the piriformis muscle. Positive straight leg raises bilaterally with pain being caused at about 65 degrees bilaterally. Deep tendon reflexes are plus 1 out of 4 bilaterally at the patella and Achilles. Patient has normal L5 extension bilaterally. She has normal sensation to light touch. Extremity normal to inspection Extremity Narrative: Right hip-no deformity. No erythema or warmth. No ecchymosis or bruising. Some mild diffuse tenderness to palpation. Some pain with range of motion but range of motion appears to be normal. Neurovascularly intact distally. General Extremety ED: Negative for edema General Extremity: Negative for edema Neuro oriented x3, CN's II-XII intact bilaterally, no sensory deficits noted and gait normal Sensorium / Orientation: awake, alert, oriented to person, oriented to place and oriented to time Motor Exam: strength 5/5 throughout and strength abnormal Psych mental status grossly normal Skin no rashes or lesions noted and no wounds MDM MDM MDM Narrative Medical decision making narrative: Patient presents with history of chronic back pain and some sciatica-like symptoms. Also complaining of some pain in her right hip. No signs or symptoms of cauda equina. X-rays of the right hip and pelvis obtained were unremarkable. Patient will be given a prescription for Medrol Dosepak as well as Flexeril and a few [place] for pain. She will be referred to back specialist. Advised to return if worsening pain, weakness extremities, change in bowel or bladder function, or condition worsening way. Radiography Diagnostic Testing: Clinical Impression(s) from Imaging Studies Hip/Pelvis X-Ray 08/19/23 10:05 IMPRESSION: Normal x-ray examination of the pelvis and hip. Electronically Signed: Edvin Church MD at 10:29 EST , Three-view x-rays of right hip and pelvis obtained interpreted by myself as no e vidence of fractures or dislocations or evidence of AVN or other lytic process. Radiology in agreement. Discharge Plan Triage Chief Complaint: Back ED Provider: Nat Bobby Dx/Rx/DC Orders Clinical Impression: Sciatica, Back pain Instructions: ED Back Pain (Acute or Chronic), ED Sciatica Prescriptions: New cyclobenzaprine [cyclobenzaprine] 10 mg tablet 10 mg PO TID PRN (Reason: Muscle Spasm) Qty: 20 0RF hydrocodone-acetaminophen [hydrocodone-acetaminophen] 5-325 mg tablet 1 tab PO Q4H PRN PRN (Reason: Pain) 3 Days Qty: 14 0RF methylprednisolone [Medrol ([place])] 4 mg tablets,dose pack 4 mg PO DAILY Qty: 21 0RF No Action albuterol 90 mcg/actuation aerosol 90 mcg inhalation PRN penicillin V potassium 500 mg tablet 500 mg PO 4X/DAY Qty: 40 0RF Primary Care Provider: Rick Armas NP Referrals: Michael Valdez DO [Med Staff - Active Staff] - 3-5 Days Rick Armas NP, CARDIOPULMONARY TECHNOLOGIST-C [Primary Care Provider] - 3-5 Days Disposition Disposition: Home, Self Care
--- NOTE | 2023-08-19 10:05 | RAD_ITS ---
STUDY: X-RAY - PELVIS AND RIGHT HIP REASON FOR EXAM: Female, 27 years old. Low back pain and right hip pain. TECHNIQUE: 3 views of the pelvis and hip. COMPARISON: None. FINDINGS: There is a non-specific bowel gas pattern. Normal visualized soft tissue structures. Normal bilateral iliac wings, sacroiliac joints and visualized sacrum. Normal bilateral superior and inferior pubic rami. Normal pubic symphysis. Normal bilateral ischial tuberosities. Normal visualized femoral head. Normal acetabulum. Normal hip joint. RAD/HIP, UNI W/ Pelvis 2-3 Views IMPRESSION: Normal x-ray examination of the pelvis and hip. Electronically Signed: Edvin Church MD at 10:29 EST ,
[2023-08-19 11:03] VITALS: BP 138/74; PULSE 74; RESP 16; TEMP 36.6; O2SAT 100
--- OUTSIDE RECORDS SUMMARY | 2023-08-19 11:03 | XMS RPT_ITS | CCD ---
Author Name Unknown Address [address] [place] [address] Organization [facility] Care Team Providers Care Laboratory Animal Facility Supervisor Name Role Phone PROVIDER, UNKNOWN Unavailable Unavailable No, PCP Unavailable Unavailable Steve Martinez Unavailable Unavailable Unavailable Primary Care Provider Unavailgordon e Unavailable Primary Care Provider UnavailPILO Salazar APRN, CNP Primary Care Phys [facility] DALILA GUALLPA Attending Unavailable PILO SANDERS Primary Care Unavailable SWETHA LEONARD Referring Unavailable RADHA PRINCE Attending Unavailable PILO SANDERS Primary Care Unavailable PILO SANDERS Attending Unavailable PILO SANDERS Primary Care Unavailable ALEXANDRE BAPTISTE Attending PILO Alberts Primary Care Unavailable Medications Current Medications Medication Drug Class(es) Dates Sig (Normalized) Sig (Original) doxycycline hyclate 100 mg oral tablet (1 source) Tetracycline-clas s Drug Start: 05-03-2022 End: 05-13-2022 take 1 tablet by mouth twice daily doxycycline (VIBRA-TABS) 100 mg tablet Take 1 tablet by mouth twice daily for 10 days. 20 tablet 0 05/03/2022 05/13/2022 Active Completed/Discontinued Medications Medication Drug Class(es) Dates Sig (Normalized) Sig (Original) [id number] 200 actuat albuterol 0.09 mg/actuat metered dose inhaler (7 sources) beta2-Adrenergic Agonist Start: 05-03-2022 take 2 puff(s) by inhalation every six hours as needed albuterol HFA (PROAIR HFA) 90 mcg/actuation inhaler Inhale 2 Puffs as instructed every 6 hours as needed. 1 Each 0 05/03/2022 Active Problems Active Problems Problem Classification Problem Date Documented Date Episodic/Chronic Anxiety disorders (3 sources) Mixed anxiety and depressive disorder; Translations: [Anxiety disorder, unspecified] Onset: 12-09-2017 12-09-2017 Chronic Asthma (5 sources) Mild intermittent asthma, uncomplicated; Translations: [Mild intermittent asthma] Onset: 08-02-2017 11-07-2020 Chronic Attention-deficit, conduct, and disruptive behavior disorders (1 source) Attention deficit hyperactivity disorder, predominantly inattentive type 03-30-2022 Chronic Cardiac dysrhythmias (1 source) Palpitations 03-30-2022 Episodic Deficiency and other anemia (2 sources) Anemia in other chronic diseases classified elsewhere; Translations: [Anemia in other chronic diseases classified elsewhere] Onset: 08-02-2017 Chronic Disorders of teeth and jaw (1 source) Toothache; Translations: [Other specified disorders of teeth and supporting structures] Episodic Headache, including migraine (2 sources) Migraine, unspecified, not intractable, without status migrainosus; Translations: [Migraine, unsp, not intractable, without status migrainosus] Onset: 08-02-2017 Chronic Immunizations and screening for infectious disease (1 source) Contact with and (suspected) exposure to other viral communicable diseases; Translations: [Contact with or exposure to other viral diseases] Episodic Menstrual disorders (1 source) Irregular periods; Translations: [Irregular menstruation, unspecified] Chronic Mood disorders (3 sources) Mood disorder; Translations: [Unspecified mood [affective] disorder] Onset: 12-09-2017 12-09-2017 Chronic Other complications of ; puerperium affecting management of mother (4 sources) Obesity complicating childbirth; Translations: [Anemia complicating childbirth] Onset: 08-02-2017 Chronic Other complications of (3 sources) Anemia in mother complicating , childbirth AND/OR puerperium; Translations: [Anemia complicating , first trimester] Onset: 07-09-2018 01-12-2019 Chronic Other lower respiratory disease (1 source) Lower respiratory tract infection; Translations: [Unspecified acute lower respiratory infection] Episodic Other nutritional; endocrine; and metabolic disorders (2 sources) Obesity, unspecified; Translations: [Obesity, unspecified] Onset: 08-02-2017 Chronic Other nutritional; endocrine; and metabolic disorders (1 source) Body mass index 40+ - severely obese 03-30-2022 Chronic Residual codes; unclassified (1 source) Increased body mass index 03-30-2022 Episodic Spondylosis; intervertebral disc disorders; other back problems (1 source) Radiculopathy, lumbar region; Translations: [Lumbar back pain with radiculopathy affecting lower extremity] Onset: 07-16-2022 Episodic Unclassified (2 sources) Body mass index (BMI) 40.0-44.9, adult; Translations: [Body mass index (BMI) 40.0-44.9, adult] Onset: 08-02-2017 Chronic Unclassified (2 sources) 33 weeks gestation of ; Translations: [33 weeks gestation of ] Onset: 08-02-2017 Unclassified (2 sources) Mild to moderate pre-eclampsia, complicating childbirth; Translations: [Mild to moderate pre-eclampsia, complicating childbirth] Onset: 08-02-2017 Unclassified (2 sources) Gestational diabetes mellitus in childbirth, controlled by oral hypoglycemic drugs; Translations: [Gestatnl diab in chldbrth, ctrl by oral hypoglycemic drugs] Onset: 08-02-2017 Unclassified (2 sources) Other ovarian cyst, right side; Translations: [Other ovarian cyst, right side] Onset: 08-02-2017 Unclassified (2 sources) Severe pre-eclampsia complicating childbirth; Translations: [Severe pre-eclampsia complicating childbirth] Onset: 08-02-2017 Unclassified (2 sources) Patient encounter status 03-30-2022 Unclassified (1 source) discussion Onset: 11-29-2021 Unclassified (2 sources) New Patient; Translations: [New Patient] Onset: 10-10-2022 Past or Other Problems Problem Classification Problem Date Documented Date Episodic/Chronic Abdominal pain (3 sources) Right upper quadrant pain; Translations: [Right upper quadrant pain] Onset: 12-29-2015 12-29-2015 Episodic Biliary tract disease (2 sources) Calculus of gallbladder without cholecystitis without obstruction; Translations: [Calculus of gallbladder w/o cholecystitis w/o obstruction] Onset: 08-02-2017 Episodic Normal and/or delivery (4 sources) Encounter for supervision of normal first , third trimester; Translations: [Single live ] Onset: 08-02-2017 Episodic Other complications of ; puerperium affecting management of mother (8 sources) Other specified complications of labor and delivery; Translations: [Diseases of the respiratory system complicating childbirth] Onset: 08-02-2017 Episodic Other complications of (4 sources) Maternal care for other abnormalities of pelvic organs, third trimester; Translations: [Maternal care for excessive growth, third trimester, not applicable or unspecified] Onset: 08-02-2017 Episodic Other lower respiratory disease (2 sources) Shortness of breath; Translations: [Shortness of breath] Onset: 08-02-2017 Episodic Polyhydramnios and other problems of amniotic cavity (2 sources) Polyhydramnios, third trimester, not applicable or unspecified; Translations: [Polyhydramnios, third trimester, not applicable or unsp] Onset: 08-02-2017 Episodic Residual codes; unclassified (3 sources) Family history of breast cancer gene BRCA mutation; Translations: [Family history of carrier of genetic disease] Onset: 07-08-2018 07-08-2018 Episodic Screening and history of mental health and substance abuse codes (3 sources) H/O: depression; Translations: [Personal history of other mental and behavioral disorders] Onset: 07-04-2018 07-04-2018 Episodic Unclassified (2 sources) Patient's other noncompliance with medication regimen; Translations: [Patient's other noncompliance with medication regimen] Onset: 08-02-2017 Episodic Results Test Name Value Interpretation Reference Range Facil ity Vital Signs Date Time Vital Sign Value Performing Clinician Espinoza radford 05-03-2022 12:120400 Body temperature 97.59 [degF] Swetha RODRIGUEZ-C Work Phone: [facility] 05-03-2022 12:120400 Body weight 104.87 kg Swetha Leonard PA-C Work Phone: [facility] 05-03-2022 12:12-0400 Diastolic blood pressure 82 mm[Hg] Swetha Leonadr PA-C Work Phone: [facility] 05-03-2022 12:12-0400 Heart rate 73 /min Swetha Leonard PA-C Work Phone: [facility] 05-03-2022 12:12-0400 Respiratory rate 18 /min Swetha Athy PA-C Work Phone: [facility] 05-03-2022 12:12-0400 SaO2% (BldA) [Mass fraction] 99 % Swetha Leonard PA-C Work Phone: [facility] 05-03-2022 12:12-0400 Systolic blood pressure 134 mm[Hg] Swetha Leonard PA-C Work Phone: [facility] 11-29-2021 10:53-0400 Body weight 103.87 kg Dalila Sternie SAMPLE MAKER ORIGINAL.REPAIR DEPARTMENT SUPERVISOR Work Phone: [facility] 11-29-2021 10:53-0400 Diastolic blood pressure 68 mm[Hg] Dalila Guallpa SAMPLE MAKER ORIGINAL.REPAIR DEPARTMENT SUPERVISOR Work Phone: [facility] 11-29-2021 10:53-0400 Systolic blood pressure 122 mm[Hg] Dalila Guallpa SAMPLE MAKER ORIGINAL.REPAIR DEPARTMENT SUPERVISOR Work Phone: [facility] 11-09-2021 18:23-0400 Body temperature 98.49 [degF] Michelle Farah SAMPLE MAKER ORIGINAL.REPAIR DEPARTMENT SUPERVISOR Work Phone: [facility] 11-09-2021 18:23-0400 Body weight 105.23 kg Michelle Farah SAMPLE MAKER ORIGINAL.REPAIR DEPARTMENT SUPERVISOR Work Phone: [facility] 11-09-2021 18:23-0400 Diastolic blood pressure 74 mm[Hg] Michelle Farah SAMPLE MAKER ORIGINAL.REPAIR DEPARTMENT SUPERVISOR Work Phone: [facility] 11-09-2021 18:23-0400 Heart rate 104 /min Michelle Farah SAMPLE MAKER ORIGINAL.REPAIR DEPARTMENT SUPERVISOR Work Phone: [facility] 11-09-2021 18:23-0400 Respiratory rate 16 /min Michelle Farah SAMPLE MAKER ORIGINAL.REPAIR DEPARTMENT SUPERVISOR Work Phone: [facility] 11-09-2021 18:23-0400 SaO2% (BldA) [Mass fraction] 99 % Michelle Farah SAMPLE MAKER ORIGINAL.REPAIR DEPARTMENT SUPERVISOR Work Phone: [facility] 11-09-2021 18:23-0400 Systolic blood pressure 124 mm[Hg] Michellealexis Farah SAMPLE MAKER ORIGINAL.REPAIR DEPARTMENT SUPERVISOR Work Phone: [facility] Encounters Encounter Date Encounter Type Care Provider Facility Start: 02-01-2023 End: 02-02-2023 ambulatory PILO SANDERS Facility:[facility] Start: 10-10-2022 End: 10-10-2022 ambulatory [facility] Start: 08-24-2022 End: 08-24-2022 ambulatory PILO SANDERS Facility:[facility] Start: 07-16-2022 End: 07-16-2022 ambulatory SWETHA LEONARD Facility:[facility] Start: 06-18-2022 End: 06-19-2022 ambulatory ALEXANDRE NOLAN SAMPLE MAKER ORIGINAL-REPAIR DEPARTMENT SUPERVISOR Facility:[facility] Start: 06-18-2022 End: 06-18-2022 Patient encounter procedure ALEXANDRE NOLAN SAMPLE MAKER ORIGINAL-REPAIR DEPARTMENT SUPERVISOR [facility] Start: 05-03-2022 End: 05-03-2022 ambulatory DALILA GUALLPA Facility:[facility] Start: 05-03-2022 End: 05-03-2022 Patient encounter procedure Swetha Leonard PA-C Work Phone: [facility] Procedures Date Procedure Procedure Detail Performing Clinician Tonsillectomy ALEXANDRE Mathew SAMPLE MAKER [employer]IGINAL-REPAIR DEPARTMENT SUPERVISOR Plan of Treatment Date Care Activity Detail Author Start: 12-24-2028 Urine microalbumin profile DTAP,TDAP,TD (8 - Td or Tdap) [facility] Start: 04-14-2022 PAP TESTING PAP TESTING [facility] Start: 03-01-2022 Influenza vaccination INFLUENZA (#1) [facility] Start: 11-07-2021 ANNUAL PCP TEAM CHRONIC DISEASE VISIT ANNUAL PCP TEAM CHRONIC DISEASE VISIT [facility] Start: 2012 SPIROMETRY SPIROMETRY [facility] Start: 2000 PNEUMOCOCCAL (1 - PCV) PNEUMOCOCCAL (1 - PCV) [facility] Start: 10-22-1999 COVID-19 VACCINE (#1) COVID-19 VACCINE (#1) [facility] Start: 04-22-1995 COVID-19 VACCINE (#1) COVID-19 VACCINE (#1) [facility] Start: 04-22-1995 HEPATITIS B (4 of 4 - 4-dose series) HEPATITIS B (4 of 4 - 4-dose series) [facility] Urine test visual color cmprsn meths HCG QUAL UR B/O Lab Routine Irregular menstrual cycle Ordered: 11/29/2021 [facility] Work Phone: Immunizations Immunization Date Immunization Notes Care Provider Eve golden 12-24-2018 diphtheria, tetanus toxoids and acellular pertussis vaccine Michelle Farah SAMPLE MAKER ORIGINAL.[facility] Work Phone: [facility] Work Phone: 12-24-2018 tetanus toxoid, redu danis diphtheria toxoid, and acellular pertussis vaccine, adsorbed Michelle Farah SAMPLE MAKER ORIGINAL.[facility] Work Phone: [facility] Work Phone: 08-09-2017 tetanus toxoid, redu danis diphtheria toxoid, and acellular pertussis vaccine, adsorbed Michelle Farah SAMPLE MAKER ORIGINAL.[facility] Work Phone: [facility] Work Phone: 03-26-2011 hepatitis A vaccine, pediatric/adolescent dosage, 2 dose schedule Michelle Farah SAMPLE MAKER ORIGINAL.[facility] Work Phone: [facility] Work Phone: 09-08-2010 hepatitis A vaccine, pediatric/adolescent dosage, 2 dose schedule Michelle Farah SAMPLE MAKER ORIGINAL.[facility] Work Phone: [facility] Work Phone: 09-08-2010 meningococcal polysaccharide (groups A, C, Y and W-135) diphtheria toxoid conjugate vaccine (MCV4P) Michelle Farah SAMPLE MAKER ORIGINAL.[facility] Work Phone: [facility] Work Phone: 09-08-2010 tetanus toxoid, redu danis diphtheria toxoid, and acellular pertussis vaccine, adsorbed Michelle Farah SAMPLE MAKER ORIGINAL.[facility] Work Phone: [facility] Work Phone: 05-07-2008 human papilloma viru s vaccine, quadrivalent Michelle Farah SAMPLE MAKER ORIGINAL.[facility] Work Phone: [facility] Work Phone: 10-14-2007 human papilloma viru s vaccine, quadrivalent Michelle Farah SAMPLE MAKER ORIGINAL.[facility] Work Phone: [facility] Work Phone: 10-11-2006 human papilloma viru s vaccine, quadrivalent Michelle Farah SAMPLE MAKER ORIGINAL.[facility] Work Phone: [facility] Work Phone: 03-29-1999 diphtheria, tetanus toxoids and acellular pertussis vaccine Michelle Farah SAMPLE MAKER ORIGINAL.[facility] Work Phone: [facility] Work Phone: 03-29-1999 haemophilus influenz ae type b vaccine, PRP-T conjugate Michellealexis Farah SAMPLE MAKER ORIGINAL.[facility] Work Phone: [facility] Work Phone: 03-29-1999 measles, mumps and rubella virus vaccine Michelle Sofi SAMPLE MAKER ORIGINAL.[facility] Work Phone: [facility] Work Phone: 03-29-1999 poliovirus vaccine, inactivated Michellealexis Farah SAMPLE MAKER ORIGINAL.[facility] Work Phone: [facility] Work Phone: 08-28-1995 DTaP-Haemophilus influenzae type b conjugate vaccine Michellealexis Farah SAMPLE MAKER ORIGINAL.REPAIR DEPARTMENT SUPERVISOR Work Phone: [facility] Work Phone: 03-15-1995 DTaP-Haemophilus influenzae type b conjugate vaccine Michelle Sofi SAMPLE MAKER ORIGINAL.[facility] Work Phone: [facility] Work Phone: 03-15-1995 hepatitis B vaccine, pediatric or pediatric/adolescent dosage Michellealexis Farah SAMPLE MAKER ORIGINAL.[facility] Work Phone: [facility] Work Phone: 03-15-1995 trivalent poliovirus vaccine, live, oral Michelle Farah SAMPLE MAKER ORIGINAL.REPAIR DEPARTMENT SUPERVISOR Work Phone: [facility] Work Phone: 03-15-1995 hepatitis B vaccine, unspecified formulation Swetha Leonard PA-C Work Phone: [facility] 1994 DTaP-Haemophilus influenzae type b conjugate vaccine Michelle Farah SAMPLE MAKER ORIGINAL.REPAIR DEPARTMENT SUPERVISOR Work Phone: [facility] Work Phone: 1994 hepatitis B vaccine, pediatric or pediatric/adolescent dosage Michelle Farah SAMPLE MAKER ORIGINAL.REPAIR DEPARTMENT SUPERVISOR Work Phone: [facility] Work Phone: 1994 trivalent poliovirus vaccine, live, oral Michelle Farah SAMPLE MAKER ORIGINAL.REPAIR DEPARTMENT SUPERVISOR Work Phone: [facility] Work Phone: 1994 hepatitis B vaccine, pediatric or pediatric/adolescent dosage Michelle Farah SAMPLE MAKER ORIGINAL.REPAIR DEPARTMENT SUPERVISOR Work Phone: [facility] Work Phone: Payers Date Payer Category Payer Medicaid [id number] 2019 Medicaid [facility] MED[facility] [id number] 2019-Present [phone] [address] [place] [address] Medicaid [id number] 2019 Medicaid [employer] A[employer] TERM 05/30 [facility] MEDICAID [id number] 2019-2022 [address] [place] [address] Medicaid [id number] 2019 Medicaid [id number] 1994 Unknown [id number] 1994 Unknown [id number] Unknown Social History Date Type Detail Facility Start: 12-11-2013 End: 07-16-2019 Tobacco smoking status NHIS Never smoked tobacco [facility] Start: 12-11-2013 End: 05-03-2022 Tobacco use and exposure Smokeless tobacco non-user [facility] Start: 11-09-2021 End: 05-03-2022 Alcohol intake Current non-drinker of alcohol (finding) [facility] Start: 1995 Sex Assigned At Not on file C [facility] Start: 10-30-2021 End: 05-03-2022 Exposure to SARS-CoV-2 (event) Not sure [facility] Sex Assigned At Sex [facility] Clinical Notes 07-04-2018 to 08-24-2022 Swetha Leonard PA-C - 05/03/2022 2:23 PM Celine Guallpa APRN.[facility]ONICA - 11/29/2021 10:58 AM EDTPatient Laina Farah APRN.[facility]ONICA - 11/09/2021 6:26 PM EDT Note Date & Type Note Facility 08-24-2022 Note HNO ID: [id number] Author: Salima Roca APRN.[facility]ONICA Service: ? Author Type: Nurse Practitioner Type: Progress Notes Filed: 08/24/2022 9:36 AM Note Text: CC: Patient presents with: Cough: Congestion, R ear pain x2 days HPI: Parvin Allen is a 26 year old female who presents to the office with complaint of head congestion, cough, nonproductive, sore throat, and ear symptoms for a few days. Symptoms are worsening Associated symptoms includes ear pain and ear pressure . Denies nausea, vomiting , and diarrhea. Treatments tried include nothing so far. with no relief of symptoms. Sick contacts: unknown. History of asthma, frequent episodes of bronchitis, chronic bronchitis, bronchiectasis or COPD: No Smoker: No Seasonal/environmental allergies: No The ROS is otherwise negative. The patient's pmh, medications, allergies, and past visits are reviewed. PHYSICAL EXAM: BP 104/80 Pulse 96 Temp 36.8 ?C (98.2 ?F) Resp 18 Wt 106.9 kg (235 lb 9.6 oz) LMP 04/28/2022 SpO2 98% BMI 42.81 kg/m? General appearance: alert, cooperative, pleasant, in no acute distress Head: Normocephalic Eyes: EOM's intact, conjunctiva pink and moist, no icterus, sclera white, non-injected Ears: Right ear: External ear/canal- Normal, TM - erythematous, bulging. Left ear: External ear/canal- Normal, TM - clear with good landmarks Oropharynx:moist without lesions, No erythema, exudates or tonsillar hypertrophy. Heart: Negative. RRR without obvious murmur, gallop, or rubs. No ectopy. Lungs: clear to auscultation, without rales or wheeze, good air exchange PAST MEDICAL HISTORY Diagnosis Date Anemia Anxiety and depression 12/09/2017 Asthma fracture age 2 right arm Gestational diabetes Major depressive disorder, recurrent, moderate (HCC) 03/27/2018 depression Preeclampsia Social anxiety disorder 03/27/2018 PAST SURGICAL HISTORY Procedure Laterality Date DELIVERY ONLY 02/28/2019 RC/S low transverse SECTION HX CHOLECYSTECTOMY PAST SURGICAL HISTORY OF cyst in jaw removed TONSILLECTOMY PRIMARY/SECONDARY Tonsillectomy age 4 ALLERGIES Patient has no known allergies. MEDICATIONS albuterol HFA (PROAIR HFA) 90 mcg/actuation inhaler Inhale 2 Puffs as instructed every 6 hours as needed. albuterol HFA (VENTOLIN HFA) 90 mcg/actuation inhaler Inhale 2 Puffs as instructed every 4 hours as needed for Wheezing/Shortness of Breath. amoxicillin (POLYMOX, AMOXIL) 500 mg capsule Take 1 capsule by mouth twice daily for 10 days. cyclobenzaprine (FLEXERIL) 10 mg tablet Take 1 tablet by mouth three times daily as needed. (Patient not taking: Reported on 08/24/2022) benzonatate (TESSALON PERLES) 100 mg capsule Take 2 capsules by mouth three times daily as needed. (Patient not taking: Reported on 07/16/2022) medroxyPROGESTERone (PROVERA) 10 mg tablet Take 1 tablet by mouth as directed. Take daily x 10 days as needed to start menses. (Patient not taking: Reported on 05/03/2022) ALBUTEROL INHALATION Inhale as instructed as needed. FAMILY HISTORY Problem Relation Age of Onset Ovarian cancer Maternal Aunt two aunts w/ ovarian cancer other (Other) Mother BRCA 1 and 2 positive Thyroid Maternal Grandmother Psychiatry Maternal Grandmother anxiety and depression other (Other) Maternal Grandmother BRCA 1 AND 2 positive Breast Cancer Maternal Aunt diagnosed at age 37 Psychiatry Maternal Grandfather anxiety and depression No Known Problems Father ADD/ADHD Brother No Known Problems Paternal Grandmother No Known Problems Paternal Grandfather Social History Tobacco Use Smoking status: Never Smokeless tobacco: Never Vaping Use Vaping Use: Never used Substance Use Topics Alcohol use: No Drug use: No ASSESSMENT/PLAN: 1. Sore throat - ICD9: 462, ICD10: J02.9 (primary diagnosis) - STREP A MOLECULAR (POC) - neg 2. Acute otitis media, right - ICD9: 382.9, ICD10: H66.91 - AMOXICILLIN 500 MG CAPSULE Prescription instructions reviewed with patient as applicable. Potential red flag symptoms discussed with the patient. Reviewed appropriate action plan to take if red flag symptoms occur. Patient agreeable to treatment plan. Salima Roca APRN.[facility] 07-16-2022 Note HNO ID: [id number] Author: Swetha Leonard PA-C Service: ? Author Type: Physician Regenerator Operator Type: Progress Notes Filed: 07/16/2022 2:28 PM Note Text: This note was created using [employer]. Subjective Parvin Allen is a 26 year old female. HPI Patient presents with low back pain over the past day. She has had problems with her back off and on over the past 5 years. Denies having x-rays previously. She states the left side hurts more than the right. It is radiating down both legs intermittently. Pain worsens with standing and walking as well as bending. She has tried ibuprofen and Tylenol [id number]. No numbness in her legs. No loss of bowel or bladder control or saddle anesthesia. Denies any known injury or fall. Review of Systems Constitutional: Negative. HENT: Negative. Respiratory: Negative. Cardiovascular: Negative. Gastrointestinal: Negative. Musculoskeletal: Positive for back pain. Skin: Negative. Hematological: Negative. Psychiatric/Behavioral: Negative. All other systems reviewed and are negative. PAST MEDICAL HISTORY Diagnosis Date Anemia Anxiety and depression 12/09/2017 Asthma fracture age 2 right arm Gestational diabetes Major depressive disorder, recurrent, moderate (HCC) 03/27/2018 depression Preeclampsia Social anxiety disorder 03/27/2018 Current Outpatient Medications Medication Sig Dispense Refill albuterol HFA (PROAIR HFA) 90 mcg/actuation inhaler Inhale 2 Puffs as instructed every 6 hours as needed. 1 Each 0 ALBUTEROL INHALATION Inhale as instructed as needed. albuterol HFA (VENTOLIN HFA) 90 mcg/actuation inhaler Inhale 2 Puffs as instructed every 4 hours as needed for Wheezing/Shortness of Breath. 1 Each 4 predniSONE (DELTASONE) 20 mg tablet Take 2 tablets by mouth once daily for 5 days. 10 tablet 0 cyclobenzaprine (FLEXERIL) 10 mg tablet Take 1 tablet by mouth three times daily as needed. 15 tablet 0 benzonatate (TESSALON PERLES) 100 mg capsule Take 2 capsules by mouth three times daily as needed. (Patient not taking: Reported on 07/16/2022) 30 capsule 0 medroxyPROGESTERone (PROVERA) 10 mg tablet Take 1 tablet by mouth as directed. Take daily x 10 days as needed to start menses. (Patient not taking: Reported on 05/03/2022) 30 tablet 3 No current facility-administered medications for this visit. PAST SURGICAL HISTORY Procedure Laterality Date DELIVERY ONLY 02/28/2019 RC/S low transverse SECTION HX CHOLECYSTECTOMY PAST SURGICAL HISTORY OF cyst in jaw removed TONSILLECTOMY PRIMARY/SECONDARY Tonsillectomy age 4 FAMILY HISTORY Problem Relation Age of Onset Ovarian cancer Maternal Aunt two aunts w/ ovarian cancer other (Other) Mother BRCA 1 and 2 positive Thyroid Maternal Grandmother Psychiatry Maternal Grandmother anxiety and depression other (Other) Maternal Grandmother BRCA 1 AND 2 positive Breast Cancer Maternal Aunt diagnosed at age 37 Psychiatry Maternal Grandfather anxiety and depression No Known Problems Father ADD/ADHD Brother No Known Problems Paternal Grandmother No Known Problems Paternal Grandfather Social History Tobacco Use Smoking status: Never Smokeless tobacco: Never Vaping Use Vaping Use: Never used Substance Use Topics Alcohol use: No Drug use: No Objective BP 116/78 Pulse 88 Temp 36.8 ?C (98.3 ?F) Resp 18 Wt 108.8 kg (239 lb 12.8 oz) LMP 04/28/2022 SpO2 99% BMI 43.57 kg/m? Physical Exam Vitals reviewed. Constitutional: Appearance: Normal appearance. HENT: Head: Normocephalic and atraumatic. Cardiovascular: Rate and Rhythm: Normal rate and regular rhythm. Heart sounds: Normal heart sounds. Pulmonary: Effort: Pulmonary effort is normal. Breath sounds: Normal breath sounds. Musculoskeletal: Cervical back: Neck supple. Comments: Patient is tender on the left paraspinal musculature of the lumbar back. Minimal midline tenderness. No redness or rash. Increased pain with bending and twisting. Able to go up on toes and back on heels. Normal strength and sensation in lower extremities. DTRs intact and symmetrical bilaterally. Able to ambulate. Neurological: Mental Status: She is alert. Assessment and Plan ASSESSMENT/PLAN: 1. Lumbar back pain with radiculopathy affecting lower extremity - ICD9: 724.4, ICD10: M54.16 X-ray shows some disc space narrowing at L5-S1. Likely does have bulging disc. Given prednisone for pain. Discussed gentle stretching. Ice/heat. Given Flexeril as needed. Discussed sedation. If not better follow-up with PCP. Red flags for ER care discussed. Patient agreeable. - XR LUMBAR GENERAL 3V AP/LAT/L5-S1 Swetha Leonard PA-C [facility] 07-16-2022 Note HNO ID: [id number] Author: RT Concha(Jack) Service: Nuclear Medicine Author Type: Technologist Type: Progress Notes Filed: 07/16/2022 1:23 PM Note Text: Radiology Service Progress Note PATIENT NAME: Parvin Allen DATE OF SERVICE: July 16, 2022 TIME: 1:09 PM PATIENT IDENTITY VERIFICATION COMPLETED USING TWO (2) IDENTIFIERS: Name and Date of confirmed by patient verbally. FALL SCREENING: Has the patient had 2 falls in the last year or 1 fall with injury or currently using an Ambulatory Assistive Device (Walker, Cane, Wheelchair, Crutches, etc.)? No PATIENT GENDER DATA: Female. status: : No status: NO. PATIENT RELEVANT IMPLANT DATA REVIEWED: Not Applicable RADIOLOGY DEPARTMENT: General X-ray: Exam(s) Completed: Spine X-Ray(s): Lumbar AP / LAT / L5-S1 PERIPHERAL IV DATA: Not applicable SIGNED BY: RT Concha(R) July 16, 2022 1:09 PM [facility] 05-03-2022 Note HNO ID: [id number] Author: Swetha Leonard PA-C Service: ? Author Type: Physician Regenerator Operator Type: Progress Notes Filed: 05/03/2022 2:26 PM Note Text: This note was created using [employer]. Subjective Parvin Allen is a 26 year old female. HPI Presents with a chief complaint of cough and congestion over the past week. Her and child are both positive for influenza A. She states her cough the past day or so has worsened and she has been more short of breath. No fever. She does have a history of asthma. No chest pain. She denies vomiting or diarrhea. Review of Systems Constitutional: Negative. HENT: Positive for congestion and rhinorrhea. Respiratory: Positive for cough, shortness of breath and wheezing. Gastrointestinal: Negative. Genitourinary: Negative. Musculoskeletal: Negative. All other systems reviewed and are negative. PAST MEDICAL HISTORY Diagnosis Date Anemia Anxiety and depression 12/09/2017 Asthma fracture age 2 right arm Gestational diabetes Major depressive disorder, recurrent, moderate (HCC) 03/27/2018 depression Preeclampsia Social anxiety disorder 03/27/2018 Current Outpatient Medications Medication Sig Dispense Refill doxycycline (VIBRA-TABS) 100 mg tablet Take 1 tablet by mouth twice daily for 10 days. 20 tablet 0 predniSONE (DELTASONE) 20 mg tablet Take 2 tablets by mouth once daily for 5 days. 10 tablet 0 benzonatate (TESSALON PERLES) 100 mg capsule Take 2 capsules by mouth three times daily as needed. 30 capsule 0 albuterol HFA (PROAIR HFA) 90 mcg/actuation inhaler Inhale 2 Puffs as instructed every 6 hours as needed. 1 Each 0 medroxyPROGESTERone (PROVERA) 10 mg tablet Take 1 tablet by mouth as directed. Take daily x 10 days as needed to start menses. (Patient not taking: Reported on 05/03/2022) 30 tablet 3 ALBUTEROL INHALATION Inhale as instructed as needed. albuterol HFA (VENTOLIN HFA) 90 mcg/actuation inhaler Inhale 2 Puffs as instructed every 4 hours as needed for Wheezing/Shortness of Breath. 1 Each 4 No current facility-administered medications for this visit. PAST SURGICAL HISTORY Procedure Laterality Date DELIVERY ONLY 02/28/2019 RC/S low transverse SECTION HX CHOLECYSTECTOMY PAST SURGICAL HISTORY OF cyst in jaw removed TONSILLECTOMY PRIMARY/SECONDARY Tonsillectomy age 4 FAMILY HISTORY Problem Relation Age of Onset Ovarian cancer Maternal Aunt two aunts w/ ovarian cancer other (Other) Mother BRCA 1 and 2 positive Thyroid Maternal Grandmother Psychiatry Maternal Grandmother anxiety and depression other (Other) Maternal Grandmother BRCA 1 AND 2 positive Breast Cancer Maternal Aunt diagnosed at age 37 Psychiatry Maternal Grandfather anxiety and depression No Known Problems Father ADD/ADHD Brother No Known Problems Paternal Grandmother No Known Problems Paternal Grandfather Social History Tobacco Use Smoking status: Never Smokeless tobacco: Never Vaping Use Vaping Use: Never used Substance Use Topics Alcohol use: No Drug use: No Objective BP 134/82 Pulse 73 Temp 36.4 ?C (97.6 ?F) Resp 18 Wt 104.9 kg (231 lb 3.2 oz) LMP 04/28/2022 SpO2 99% BMI 42.01 kg/m? Physical Exam Vitals reviewed. Constitutional: Appearance: Normal appearance. HENT: Head: Normocephalic and atraumatic. Right Ear: Tympanic membrane, ear canal and external ear normal. Left Ear: Tympanic membrane, ear canal and external ear normal. Nose: Congestion present. Mouth/Throat: Mouth: Mucous membranes are moist. Pharynx: Oropharynx is clear. Cardiovascular: Rate and Rhythm: Normal rate and regular rhythm. Pulmonary: Effort: Pulmonary effort is normal. No respiratory distress. Breath sounds: No stridor. Wheezing and rhonchi present. No rales. Musculoskeletal: Cervical back: Neck supple. Skin: General: Skin is warm and dry. Neurological: Mental Status: She is alert. Assessment and Plan ASSESSMENT/PLAN: 1. Lower respiratory infection - ICD9: 519.8, ICD10: J22 (primary diagnosis) We will treat with doxycycline, prednisone, albuterol inhaler and cough suppressant. Follow-up with PCP if not improving. 2. Exposure to the flu - ICD9: V01.79, ICD10: Z20.828 Swetha Leonard PA-C [facility] 05-03-2022 History of Present illness Narrative This note was created using NoteWriter. Subjective Parvin Allen is a 26 year old female. HPI Presents with a chief complaint of cough and congestion over the past week. Her and child are both positive for influenza A. She states her cough the past day or so has worsened and she has been more short of breath. No fever. She does have a history of asthma. No chest pain. She denies vomiting or diarrhea. Review of Systems Constitutional: Negative. HENT: Positive for congestion and rhinorrhea. Respiratory: Positive for cough, shortness of breath and wheezing. Gastrointestinal: Negative. Genitourinary: Negative. Musculoskeletal: Negative. All other systems reviewed and are negative. PAST MEDICAL HISTORY Diagnosis Date Anemia Anxiety and depression 12/09/2017 Asthma fracture age 2 right arm Gestational diabetes Major depressive disorder, recurrent, moderate (HCC) 03/27/2018 depression Preeclampsia Social anxiety disorder 03/27/2018 Current Outpatient Medications Medication Sig Dispense Refill doxycycline (VIBRA-TABS) 100 mg tablet Take 1 tablet by mouth twice daily for 10 days. 20 tablet 0 predniSONE (DELTASONE) 20 mg tablet Take 2 tablets by mouth once daily for 5 days. 10 tablet 0 benzonatate (TESSALON PERLES) 100 mg capsule Take 2 capsules by mouth three times daily as needed. 30 capsule 0 albuterol HFA (PROAIR HFA) 90 mcg/actuation inhaler Inhale 2 Puffs as instructed every 6 hours as needed. 1 Each 0 medroxyPROGESTERone (PROVERA) 10 mg tablet Take 1 tablet by mouth as directed. Take daily x 10 days as needed to start menses. (Patient not taking: Reported on 05/03/2022) 30 tablet 3 ALBUTEROL INHALATION Inhale as instructed as needed. albuterol HFA (VENTOLIN HFA) 90 mcg/actuation inhaler Inhale 2 Puffs as instructed every 4 hours as needed for Wheezing/Shortness of Breath. 1 Each 4 No current facility-administered medications for this visit. PAST SURGICAL HISTORY Procedure Laterality Date DELIVERY ONLY 02/28/2019 RC/S low transverse SECTION HX CHOLECYSTECTOMY PAST SURGICAL HISTORY OF cyst in jaw removed TONSILLECTOMY PRIMARY/SECONDARY <AGE 11 Tonsillectomy age 4 FAMILY HISTORY Problem Relation Age of Onset Ovarian cancer Maternal Aunt two aunts w/ ovarian cancer other (Other) Mother BRCA 1 and 2 positive Thyroid Maternal Grandmother Psychiatry Maternal Grandmother anxiety and depression other (Other) Maternal Grandmother BRCA 1 & 2 positive Breast Cancer Maternal Aunt diagnosed at age 37 Psychiatry Maternal Grandfather anxiety and depression No Known Problems Father ADD/ADHD Brother No Known Problems Paternal Grandmother No Known Problems Paternal Grandfather Social History Tobacco Use Smoking status: Never Smokeless tobacco: Never Vaping Use Vaping Use: Never used Substance Use Topics Alcohol use: No Drug use: No Objective BP 134/82 Pulse 73 Temp 36.4 C (97.6 F) Resp 18 Wt 104.9 kg (231 lb 3.2 oz) LMP 04/28/2022 SpO2 99% BMI 42.01 kg/m Physical Exam Vitals reviewed. Constitutional: Appearance: Normal appearance. HENT: Head: Normocephalic and atraumatic. Right Ear: Tympanic membrane, ear canal and external ear normal. Left Ear: Tympanic membrane, ear canal and external ear normal. Nose: Congestion present. Mouth/Throat: Mouth: Mucous membranes are moist. Pharynx: Oropharynx is clear. Cardiovascular: Rate and Rhythm: Normal rate and regular rhythm. Pulmonary: Effort: Pulmonary effort is normal. No respiratory distress. Breath sounds: No stridor. Wheezing and rhonchi present. No rales. Musculoskeletal: Cervical back: Neck supple. Skin: General: Skin is warm and dry. Neurological: Mental Status: She is alert. Assessment and Plan ASSESSMENT/PLAN: 1. Lower respiratory infection - ICD9: 519.8, ICD10: J22 (primary diagnosis) We will treat with doxycycline, prednisone, albuterol inhaler and cough suppressant. Follow-up with PCP if not improving. 2. Exposure to the flu - ICD9: V01.79, ICD10: Z20.828 Swetha Leonard PA-C documented in this encounter [facility] 11-29-2021 Note HNO ID: [id number] Author: Dalila Guallpa APRN.REPAIR DEPARTMENT SUPERVISOR Service: ? Author Type: Nurse Practitioner Type: Progress Notes Filed: 11/29/2021 12:48 PM Note Text: Parvin Allen is a 26 year old female who presents for problem visit irregular menses HPI: Irregular menses since menarche. Menses every 1-2 months and would last up to 2.5 weeks. Menses became more regular after pregnancies. Last delivery 01/2019 - since then menses every month although sometimes a few days late until last several months. Menses now every 6-8 weeks lasting 7 days. Was prescribed Provera by Jack Trujillo but has not taken it the past 3 months because menses was on time in September. Attempting - same partner. 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: 10/11/2021, Having periods Age at Menarche: Age at First : Age at Menopause: Tool Grinder Operator History Comments: Sexual Activity: Yes; Male Contraception: Pill PAST MEDICAL HISTORY Diagnosis Date - Anemia - Anxiety and depression 12/09/2017 - Asthma - fracture age 2 right arm - Gestational diabetes - Major depressive disorder, recurrent, moderate (HCC) 03/27/2018 - depression - Preeclampsia - Social anxiety disorder 03/27/2018 PAST SURGICAL HISTORY Procedure Laterality Date - DELIVERY ONLY 02/28/2019 RC/S low transverse - SECTION HX - CHOLECYSTECTOMY - PAST SURGICAL HISTORY OF cyst in jaw removed - TONSILLECTOMY PRIMARY/SECONDARY Tonsillectomy age 4 FAMILY HISTORY Problem Relation [...] - Psychiatry Maternal Grandfather anxiety and depression - No Known Problems Father - ADD/ADHD Brother - No Known Problems Paternal Grandmother - No Known Problems Paternal Grandfather Social History Tobacco Use - Smoking status: Never Smoker - Smokeless tobacco: Never Used Vaping Use - Vaping Use: Never used Substance Use Topics - Alcohol use: No - Drug use: No Current Outpatient Medications Medication Sig - albuterol HFA (VENTOLIN HFA) 90 mcg/actuation inhaler Inhale 2 Puffs as instructed every 4 hours as needed for Wheezing/Shortness of Breath. - medroxyPROGESTERone (PROVERA) 10 mg tablet Take 1 tablet by mouth once daily. - ALBUTEROL INHALATION Inhale as instructed as needed. No current facility-administered medications for this visit. Allergies As of Date: 11/29/2021 (No Known Allergies) Fully Assessed 11/29/2021 REVIEW OF SYSTEMS Abdomen: No bloating, early satiety, indigestion, or increased flatulence. No abdominal pain, nausea, vomiting, diarrhea, or constipation. Allergies and current medication updated:Yes EXAM: BP 122/68 Wt 229 lb (103.9kg) LMP 10/11/2021 GENERAL: pleasant, female in no apparent distress CHEST: Normal inspiratory effort NEURO: alert and oriented x3,exam grossly non-focal ASSESSMENT/PLAN: 1. Irregular menstrual cycle - ICD9: 626.4, ICD10: N92.6 - Actively attempting . Discussed OCP x 3 months to regulate menses or continuing Provera. Pt has difficulty remembering to take daily medication so she prefers to continue Provera monthly. - HCG QUAL UR B/O - neg - MEDROXYPROGESTERONE 10 MG TABLET Follow-up as needed. Dalila Guallpa APRN.REPAIR DEPARTMENT SUPERVISOR Medical Decision Making: Problems: Moderate: 1+ chronic illnesses with change Risk: Moderate: Drug management Medical Decision Making Level: 4 - Moderate [facility] 11-29-2021 History of Present illness Narrative Parvin Allen is a 26 year old female who presents for problem visit irregular menses HPI: Irregular menses since menarche. Menses every 1-2 months and would last up to 2.5 weeks. Menses became more regular after pregnancies. Last delivery 01/2019 - since then menses every month although sometimes a few days late until last several months. Menses now every 6-8 weeks lasting 7 days. Was prescribed Provera by Jack Trujillo but has not taken it the past 3 months because menses was on time in September. Attempting - same partner. 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: 10/11/2021, Having periods Age at Menarche: Age at First : Age at Menopause: Tool Grinder Operator History Comments: Sexual Activity: Yes; Male Contraception: Pill PAST MEDICAL HISTORY Diagnosis Date Anemia Anxiety and depression 12/09/2017 Asthma fracture age 2 right arm Gestational diabetes Major depressive disorder, recurrent, moderate (HCC) 03/27/2018 depression Preeclampsia Social anxiety disorder 03/27/2018 PAST SURGICAL HISTORY Procedure Laterality Date DELIVERY ONLY 02/28/2019 RC/S low transverse SECTION HX CHOLECYSTECTOMY PAST SURGICAL HISTORY OF cyst in jaw removed TONSILLECTOMY PRIMARY/SECONDARY <AGE 11 Tonsillectomy age 4 FAMILY HISTORY Problem Relation Age of Onset Ovarian cancer Maternal Aunt two aunts w/ ovarian cancer other (Other) Mother BRCA 1 and 2 positive Thyroid Maternal Grandmother Psychiatry Maternal Grandmother anxiety and depression other (Other) Maternal Grandmother BRCA 1 & 2 positive Breast Cancer Maternal Aunt diagnosed at age 37 Psychiatry Maternal Grandfather anxiety and depression No Known Problems Father ADD/ADHD Brother No Known Problems Paternal Grandmother No Known Problems Paternal Grandfather Social History Tobacco Use Smoking status: Never Smoker Smokeless tobacco: Never Used Vaping Use Vaping Use: Never used Substance Use Topics Alcohol use: No Drug use: No Current Outpatient Medications Medication Sig albuterol HFA (VENTOLIN HFA) 90 mcg/actuation inhaler Inhale 2 Puffs as instructed every 4 hours as needed for Wheezing/Shortness of Breath. medroxyPROGESTERone (PROVERA) 10 mg tablet Take 1 tablet by mouth once daily. ALBUTEROL INHALATION Inhale as instructed as needed. No current facility-administered medications for this visit. Allergies As of Date: 11/29/2021 (No Known Allergies) Fully Assessed 11/29/2021 REVIEW OF SYSTEMS Abdomen: No bloating, early satiety, indigestion, or increased flatulence. No abdominal pain, nausea, vomiting, diarrhea, or constipation. Allergies and current medication updated:Yes EXAM: BP 122/68 Wt 229 lb (103.9kg) LMP 10/11/2021 GENERAL: pleasant, female in no apparent distress CHEST: Normal inspiratory effort NEURO: alert and oriented x3,exam grossly non-focal ASSESSMENT/PLAN: 1. Irregular menstrual cycle - ICD9: 626.4, ICD10: N92.6 - Actively attempting . Discussed OCP x 3 months to regulate menses or continuing Provera. Pt has difficulty remembering to take daily medication so she prefers to continue Provera monthly. - HCG QUAL UR B/O - neg - MEDROXYPROGESTERONE 10 MG TABLET Follow-up as needed. Dalila Guallpa APRN.CNP Medical Decision Making: Problems: Moderate: 1+ chronic illnesses with change Risk: Moderate: Drug management Medical Decision Making Level: 4 - Moderate documented in this encounter [facility] 11-09-2021 Note HNO ID: [id number] Author: Michelle Farah APRN.REPAIR DEPARTMENT SUPERVISOR Service: ? Author Type: Nurse Practitioner Type: Progress Notes Filed: 11/09/2021 6:39 PM Note Text: This note was created using [employer]. Subjective Parvin Allen is a 26 year old female. 26 year old female with PMH asthma, anemia, anxiety and depression presents for complaints of tooth pain. Acute onset 2 days ago Top right wisdom tooth +throbbing +aching States that the tooth itself has been chipped for quite some time She attempted to call the dentist today, and states that she cannot get in until January. Denies inability to open or close. Denies difficulty handling secretions. The history is provided by the patient. No gas appliance servicer was used. Dental Problem This is a new problem. The current episode started yesterday. The problem occurs constantly. The problem has been gradually worsening. Pertinent negatives include no abdominal pain, anorexia, arthralgias, change in bowel habit, chest pain, chills, congestion, coughing, diaphoresis, fatigue, fever, headaches, joint swelling, myalgias, nausea, neck pain, numbness, rash, sore throat, swollen glands, urinary symptoms, vertigo, visual change, vomiting or weakness. Exacerbated by: eating and chewing. She has tried nothing for the symptoms. The treatment provided no relief. PAST MEDICAL HISTORY Diagnosis Date - Anemia - Anxiety and depression 12/09/2017 - Asthma - fracture age 2 right arm - Gestational diabetes - Major depressive disorder, recurrent, moderate (HCC) 03/27/2018 - depression - Preeclampsia - Social anxiety disorder 03/27/2018 PAST SURGICAL HISTORY Procedure Laterality Date - DELIVERY ONLY 02/28/2019 RC/S low transverse - SECTION HX - CHOLECYSTECTOMY - PAST SURGICAL HISTORY OF cyst in jaw removed - TONSILLECTOMY PRIMARY/SECONDARY Tonsillectomy age 4 ALLERGIES Patient has no known allergies. MEDICATIONS medroxyPROGESTERone (PROVERA) 10 mg tablet Take 1 tablet by mouth once daily. ALBUTEROL INHALATION Inhale as instructed as needed. albuterol HFA (VENTOLIN HFA) 90 mcg/actuation inhaler Inhale 2 Puffs as instructed every 4 hours as needed for Wheezing/Shortness of Breath. penicillin V potassium (V-CILLIN, VEETIDS) 500 mg tablet Take 1 tablet by mouth four times daily for 5 days. FAMILY HISTORY Problem Relation Age of Onset - Ovarian cancer Maternal Aunt two aunts w/ ovarian cancer - other (Other) Mother BRCA 1 and 2 positive - Thyroid Maternal Grandmother - Psychiatry Maternal Grandmother anxiety and depression - other (Other) Maternal Grandmother BRCA 1 AND 2 positive - Breast Cancer Maternal Aunt diagnosed at age 37 - Psychiatry Maternal Grandfather anxiety and depression - No Known Problems Father - ADD/ADHD Brother - No Known Problems Paternal Grandmother - No Known Problems Paternal Grandfather Social History Tobacco Use - Smoking status: Never Smoker - Smokeless tobacco: Never Used Vaping Use - Vaping Use: Never used Substance Use Topics - Alcohol use: No - Drug use: No Review of Systems Constitutional: Negative for chills, diaphoresis, fatigue and fever. HENT: Positive for dental problem. Negative for congestion, ear pain, facial swelling, sinus pressure, sinus pain and sore throat. Eyes: Negative for pain, discharge and itching. Respiratory: Negative for apnea, cough, choking and chest tightness. Cardiovascular: Negative for chest pain, palpitations and leg swelling. Gastrointestinal: Negative for abdominal pain, anorexia, change in bowel habit, diarrhea, nausea and vomiting. Musculoskeletal: Negative for arthralgias, joint swelling, myalgias and neck pain. Skin: Negative for color change, pallor and rash. Allergic/Immunologic: Negative for environmental allergies, food allergies and immunocompromised state. Neurological: Negative for dizziness, vertigo, facial asymmetry, weakness, numbness and headaches. Hematological: Negative for adenopathy. Does not bruise/bleed easily. Psychiatric/Behavioral: Negative for agitation and behavioral problems. Objective BP 124/74 Pulse 104 Temp 36.9 ?C (98.5 ?F) Resp 16 Wt 105.2 kg (232 lb) LMP 05/18/2021 SpO2 99% BMI 42.15 kg/m? Physical Exam Vitals and nursing note reviewed. Constitutional: General: She is not in acute distress. Appearance: Normal appearance. She is normal weight. She is not ill-appearing, toxic-appearing or diaphoretic. HENT: Head: Normocephalic and atraumatic. Right Ear: Ear canal and external ear normal. Left Ear: Ear canal and external ear normal. Nose: Nose normal. No congestion or rhinorrhea. Mouth/Throat: Mouth: Mucous membranes are moist. Pharynx: No oropharyngeal exudate or posterior oropharyngeal erythema. Eyes: General: Right eye: No discharge. Left eye: No discharge. Extraocular Movements: Extraocular movements intact. Conj (more content not included)... [facility] 11-09-2021 Instructions Michelle Farah APRN.[facility] - 11/09/2021 6:28 PM EDT Dental Care Services Here are low cost places you can go for dental care: [facility] [id number] [facility]- [phone] Services:Extractions only- No wisdom teeth Hours: - 4:15 P.M. Fee: Free- Donations are accepted [facility]) [facility] ([address]) Services: Health history, exam, cleaning, X-Rays, patient education and nutritional counseling. Hours: Varies with the school year. By appointment only. Fee: Over 12 years of age, $10.00; Under 12 year of age $6.00 [facility] [address] [facility] ([facility]): [phone] [facility]): [phone] (Note: These are the only [facility] which offer dental services) Services: Full dental services Hours: 8:30 a.m. to 5:30 p.m., Saturday through Saturday. By appointment. Fee: [place] and Medicaid. Bring ID and proof of income. [facility] [address] [phone]. [phone]) Services: Full dental services. Hours: By appointment only. Fee: [place] and Medicaid. Bring ID and proof of income. [facility] [address] [phone] Services: Full dental services. Hours: 8:15 a.m.- 5:00 p.m. By appointment only. Fee: Flat fee. Medicaid and insurances. Bring ID and proof of income. [facility]: By main entrance of [facility] [phone] Services: Full dental services. Hours:Varies with school year. Call for appointment. Fee: Flat fee. Medicaid and insurances. Bring ID and proof of income. [facility] [address] [facility] (Between [facility]) [phone] Services: Full dental services. Hours: 8:30 a.m.-4:00 p.m. Saturday through Saturday. Appointments recommended. Emergency walk ins- 8:30 a.m.- 11:15 a.m. and 2:00 p.m-3:15 p.m. Fee: [place] and Medicaid. Bring ID and proof of income. [facility] [address] [facility] [phone] Services: Full dental services. Hours: 9:00 a.m.-4:45 p.m. Saturday through Saturday. Appointments and emergency walk in. Fee: [place]es and Medicaid. Bring ID and proof of income. documented in this encounter [facility] 11-09-2021 History of Present illness Narrative Images from the original note were not included. This note was created using [employer]. Subjective Parvin Allen is a 26 year old female. 26 year old female with PMH asthma, anemia, anxiety and depression presents for complaints of tooth pain. Acute onset 2 days ago Top right wisdom tooth +throbbing +aching States that the tooth itself has been chipped for quite some time She attempted to call the dentist today, and states that she cannot get in until January. Denies inability to open or close. Denies difficulty handling secretions. The history is provided by the patient. No gas appliance servicer was used. Dental Problem This is a new problem. The current episode started yesterday. The problem occurs constantly. The problem has been gradually worsening. Pertinent negatives include no abdominal pain, anorexia, arthralgias, change in bowel habit, chest pain, chills, congestion, coughing, diaphoresis, fatigue, fever, headaches, joint swelling, myalgias, nausea, neck pain, numbness, rash, sore throat, swollen glands, urinary symptoms, vertigo, visual change, vomiting or weakness. Exacerbated by: eating and chewing. She has tried nothing for the symptoms. The treatment provided no relief. PAST MEDICAL HISTORY Diagnosis Date Anemia Anxiety and depression 12/09/2017 Asthma fracture age 2 right arm Gestational diabetes Major depressive disorder, recurrent, moderate (HCC) 03/27/2018 depression Preeclampsia Social anxiety disorder 03/27/2018 PAST SURGICAL HISTORY Procedure Laterality Date DELIVERY ONLY 02/28/2019 RC/S low transverse SECTION HX CHOLECYSTECTOMY PAST SURGICAL HISTORY OF cyst in jaw removed TONSILLECTOMY PRIMARY/SECONDARY <AGE 11 Tonsillectomy age 4 ALLERGIES Patient has no known allergies. MEDICATIONS medroxyPROGESTERone (PROVERA) 10 mg tablet Take 1 tablet by mouth once daily. ALBUTEROL INHALATION Inhale as instructed as needed. albuterol HFA (VENTOLIN HFA) 90 mcg/actuation inhaler Inhale 2 Puffs as instructed every 4 hours as needed for Wheezing/Shortness of Breath. penicillin V potassium (V-CILLIN, VEETIDS) 500 mg tablet Take 1 tablet by mouth four times daily for 5 days. FAMILY HISTORY Problem Relation Age of Onset Ovarian cancer Maternal Aunt two aunts w/ ovarian cancer other (Other) Mother BRCA 1 and 2 positive Thyroid Maternal Grandmother Psychiatry Maternal Grandmother anxiety and depression other (Other) Maternal Grandmother BRCA 1 & 2 positive Breast Cancer Maternal Aunt diagnosed at age 37 Psychiatry Maternal Grandfather anxiety and depression No Known Problems Father ADD/ADHD Brother No Known Problems Paternal Grandmother No Known Problems Paternal Grandfather Social History Tobacco Use Smoking status: Never Smoker Smokeless tobacco: Never Used Vaping Use Vaping Use: Never used Substance Use Topics Alcohol use: No Drug use: No Review of Systems Constitutional: Negative for chills, diaphoresis, fatigue and fever. HENT: Positive for dental problem. Negative for congestion, ear pain, facial swelling, sinus pressure, sinus pain and sore throat. Eyes: Negative for pain, discharge and itching. Respiratory: Negative for apnea, cough, choking and chest tightness. Cardiovascular: Negative for chest pain, palpitations and leg swelling. Gastrointestinal: Negative for abdominal pain, anorexia, change in bowel habit, diarrhea, nausea and vomiting. Musculoskeletal: Negative for arthralgias, joint swelling, myalgias and neck pain. Skin: Negative for color change, pallor and rash. Allergic/Immunologic: Negative for environmental allergies, food allergies and immunocompromised state. Neurological: Negative for dizziness, vertigo, facial asymmetry, weakness, numbness and headaches. Hematological: Negative for adenopathy. Does not bruise/bleed easily. Psychiatric/Behavioral: Negative for agitation and behavioral problems. Objective BP 124/74 Pulse 104 Temp 36.9 C (98.5 F) Resp 16 Wt 105.2 kg (232 lb) LMP 05/18/2021 SpO2 99% BMI 42.15 kg/m Physical Exam Vitals and nursing note reviewed. Constitutional: General: She is not in acute distress. Appearance: Normal appearance. She is normal weight. She is not ill-appearing, toxic-appearing or diaphoretic. HENT: Head: Normocephalic and atraumatic. Right Ear: Ear canal and external ear normal. Left Ear: Ear canal and external ear normal. Nose: Nose normal. No congestion or rhinorrhea. Mouth/Throat: Mouth: Mucous membranes are moist. Pharynx: No oropharyngeal exudate or posterior oropharyngeal erythema. Eyes: General: Right eye: No discharge. Left eye: No discharge. Extraocular Movements: Extraocular movements intact. Conjunctiva/sclera: Conjunctivae normal. Pupils: Pupils are equal, round, and reactive to light. Cardiovascular: Rate and Rhythm: Normal rate and regular rhythm. Pulses: Normal pulses. Heart sounds: Normal heart sounds. No murmur heard. No friction rub. Pulmonary: Effort: Pulmonary effort is normal. No respiratory distress. Breath sounds: Normal breath sounds. No stridor. No wheezing, rhonchi or rales. Chest: Chest wall: No tenderness. Abdominal: General: Abdomen is flat. There is no distension. Palpations: Abdomen is soft. There is no mass. Tenderness: There is no abdominal tenderness. There is no right CVA tenderness, left CVA tenderness, guarding or rebound. Hernia: No hernia is present. Musculoskeletal: General: No swelling, tenderness, deformity or signs of injury. Normal range of motion. Cervical back: Normal range of motion and neck supple. No rigidity. Right lower leg: No edema. Left lower leg: No edema. Lymphadenopathy: Cervical: No cervical adenopathy. Skin: General: Skin is warm and dry. Coloration: Skin is not jaundiced or pale. Findings: No bruising, erythema, lesion or rash. Neurological: General: No focal deficit present. Mental Status: She is alert and oriented to person, place, and time. Cranial Nerves: No cranial nerve deficit. Sensory: No sensory deficit. Motor: No weakness. Coordination: Coordination normal. Gait: Gait normal. Psychiatric: Mood and Affect: Mood normal. Behavior: Behavior normal. Thought Content: Thought content normal. Judgment: Judgment normal. Assessment and Plan ASSESSMENT/PLAN: 1. Odontalgia - ICD9: 525.9, ICD10: K08.89 X 2 days States that her upper right wisdom tooth has been cracked for quite some time She attempted to call dentist today, but cannot be seen until January RX for PCN VK Provided free/reduced dental services Encouraged need to follow up urgently as concerns for an abscess with cracked tooth OTC analgesics Michelle Farah APRN.REPAIR DEPARTMENT SUPERVISOR documented in this encounter [facility] documented as of this encounter (statuses as of 11/09/2021) [facility]01-04-2019 History of Past illness Narrative* Problem Noted Date Resolved Date Short interval between pregn ancies affecting , antepartum 07/04/2018 04/14/2019 Overview: 07/04/2018Patient delivered previous child 08/06/2017.TKRN Previous delivery affecting , antepartum 07/04/2018 04/14/2019 Overview: 08/19/18 - Risks/benefits/alternatives discussed with patient regarding trial of labor and potential for uterine rupture. Risks include but are not limited to maternal hemorrhage, risk of injury to adjacent organs including potential hysterectomy. risks discussed as well, including potential for permanent neurologic injury or . Overall uterine rupture risk is less than 1% after one section. Is a trial of labor contraindicated for this patient? No - op note reviewed & confirms LTCS If no, calculate rate of success using pre-labor factors: http://www.[facility].edu/mfmu/vagbirth.html Predicted chance of vaginal after : 65% Patient's plan for delivery mode: ASHLEY saadia Roca MD 07/08/18 - LTCS report received, reviewed and uploaded. Monisha Marshall APRN.CNM 07/04/2018 Pt had a previous C section for failed induction for preeclampsia. She states that she was transferred from [facility] to [facility] for delivery. Patient signed a release form for her previous OB medical records from Dr Cruz and her C Section report from [facility] Ramon She desires a .EMMIs on C Section and ordered and patient is asked to watch them prior to next NOB appointment.TKRN Hx of preeclampsia, prior , currently p regnant 07/04/2018 04/14/2019 Overview: 07/22/18 - Upon review of [facility] records from previous - Initial BPs with last 120-130s/80s at beginning of and then were 140-150/90-100s starting at 29 weeks, increasing proteinuria at this time was also noted. 24 hour urine at 31 week visit = 500, +3 protein on urine dip at 33 weeks in office and patient was transferred to high risk care at [facility]. Pre-eclampsia bloodwork was WNL per [facility] records.Monisha Marshall APRN.CNM 07/08/18 - Severe Pre-clampsia dx'ed last in late 2nd/early 3rd trimester per patient's report. Recommend starting baby ASA PO daily. Monisha Marshall APRN.CNM History of gestational diabe emily in prior , currently 07/04/2018 04/14/2019 Overview: Patient has a history of gestational diabetes-diet controlled in prior . Will plan on GCT@ NOB.WILMANRN Nausea and vomiting in 07/04/2018 04/14/2019 Overview: 07/04/2018Patient is complaining of nausea in . Denies vomiting. Advised patient to call/come in if she is unable to keep any food or fluids down in a 24-hour period.Recommended Vitamin B6. TKRN Family history of Down syndrome 07/04/2018 04/14/2019 Overview: 07/04/2018FOB's sister born with Down Syndrome and hole in heart. Surgical correction was done. TKRN documented as of this encounter (statuses as of 11/29/2021) [facility] History of Past illness Narrative* Problem Noted Date Resolved Date Short interval between pregn ancies affecting , antepartum 07/04/2018 04/14/2019 Overview: 07/04/2018Patient delivered previous child 08/06/2017.TKRN Previous delivery affecting , antepartum 07/04/2018 04/14/2019 Overview: 08/19/18 - Risks/benefits/alternatives discussed with patient regarding trial of labor and potential for uterine rupture. Risks include but are not limited to maternal hemorrhage, risk of injury to adjacent organs including potential hysterectomy. risks discussed as well, including potential for permanent neurologic injury or . Overall uterine rupture risk is less than 1% after one section. Is a trial of labor contraindicated for this patient? No - op note reviewed & confirms LTCS If no, calculate rate of success using pre-labor factors: http://www.[facility].edu/mfmu/vagbirth.html Predicted chance of vaginal after : 65% Patient's plan for delivery mode: ASHLEY completed Phu Roca MD 07/08/18 - LTCS report received, reviewed and uploaded. Monisha Marshall APRN.MAGGY 07/04/2018 Pt had a previous C section for failed induction for preeclampsia. She states that she was transferred from [facility] to [facility] for delivery. Patient signed a release form for her previous OB medical records from Dr Cruz and her C Section report from [facility] Ramon She desires a .SUDARSHANIs on C Section and ordered and patient is asked to watch them prior to next NOB appointment.TKRN Hx of preeclampsia, prior , currently p regnant 07/04/2018 04/14/2019 Overview: 07/22/18 - Upon review of [facility] records from previous - Initial BPs with last 120-130s/80s at beginning of and then were 140-150/90-100s starting at 29 weeks, increasing proteinuria at this time was also noted. 24 hour urine at 31 week visit = 500, +3 protein on urine dip at 33 weeks in office and patient was transferred to high risk care at [facility]. Pre-eclampsia bloodwork was WNL per [facility] records.Monisha Marshall APRN.CNM 07/08/18 - Severe Pre-clampsia dx'ed last in late 2nd/early 3rd trimester per patient's report. Recommend starting baby ASA PO daily. Monisha Marshall APRN.CNM History of gestational diabe emily in prior , currently 07/04/2018 04/14/2019 Overview: Patient has a history of gestational diabetes-diet controlled in prior . Will plan on GCT@ NOB.TKRN Nausea and vomiting in 07/04/2018 04/14/2019 Overview: 07/04/2018Patient is complaining of nausea in . Denies vomiting. Advised patient to call/come in if she is unable to keep any food or fluids down in a 24-hour period.Recommended Vitamin B6. TKRN Family history of Down syndrome 07/04/2018 04/14/2019 Overview: 07/04/2018FOB's sister born with Down Syndrome and hole in heart. Surgical correction was done. TKRN documented as of this encounter (statuses as of 05/03/2022) [facility] Future Appointments Appointment Date:07/13/2022 10:20:00 AM Scheduled Provider:PILO SANDERS APRN - REPAIR DEPARTMENT SUPERVISOR Location:[facility] Appointment Type:PC OV Follow Up Future Scheduled Tests Laboratory* D-Dimer 06/18/22 * Ferritin 06/18/22 * Iron Level 06/18/22 * Thyroid Stimulating Hormone 03/30/22 * Lipid Profile 03/30/22 * Lipoprotein (a) 03/30/22 * Vitamin D Level 03/30/22 * Complete Metabolic Panel 03/30/22 * TIBC 06/18/22 [facility] Evaluation note* Diagnosis Odontalgia- Primary Unspecified disorder of the teeth and supporting structures [facility] Irregular menstrual cycle- Primary [facility] Diagnosis Lower respiratory infection- Primary Other diseases of respiratory system, not elsewhere classified Exposure to the flu Contact with or exposure to other viral diseases [facility] Narrative No data available for this section [facility] Hospital Discharge instructions No data available for this section [facility] Progress note No data available for this section [facility] Summary Purpose Family History No Family History Records FoundNo Family History Records FoundNo Family History Records FoundNo Family History Records Found Advance Directives No Advanced Directives Records FoundNo Advanced Directives Records FoundNo Advanced Directives Records FoundNo Advanced Directives Records Found Additional Source Comments INFORMATION SOURCE (unrecogn ized section and content) DATE CREATED AUTHOR AUTHOR'S ORGANIZ ATION 08/25/2022 [facility] DATE CREATED AUTHOR AUTHOR'S ORGANIZ ATION 01/18/2023 [facility] DATE CREATED AUTHOR AUTHOR'S ORGANIZ ATION 02/03/2023 [facility] ([place] Source Comments (unrecognize d section and content) In the event this informatio n is protected by the Federal Confidentiality of Alcohol and Drug Abuse Patient Records regulations: The Federal rules restrict any use of the information to criminally investigate or prosecute any alcohol or drug abuse patient.[facility] the event this information is protected by the Federal Confidentiality of Alcohol and Drug Abuse Patient Records regulations: The Federal rules restrict any use of the information to criminally investigate or prosecute any alcohol or drug abuse patient.[facility] the event this information is protected by the Federal Confidentiality of Alcohol and Drug Abuse Patient Records regulations: The Federal rules restrict any use of the information to criminally investigate or prosecute any alcohol or drug abuse patient.[facility] Reason for Visit (unrecogniz ed section and content) Reason Comments Menstrual Problem irregular menses Reason Comments Cough Chest congestion, th roat pain, + exposure Flu x 5 days. Care Team (unrecognized sect ion and content) Care Team Personnel Name: PILO SANDERS APRN - REPAIR DEPARTMENT SUPERVISOR Position: P4 Advanced Practice Nurse Member Role: Primary Care Physician Address: Address: [address] [id number] Care Team Related Persons Name: JAVAD ALLEN FOR RECORDS PERTAINING TO PATIENTS WHO ARE OR HAVE BEEN ENROLLED IN A CHEMICAL DEPENDENCY/SUBSTANCEABUSE PROGRAM, SOME INFORMATION MAY BE OMITTED. This clinical summary was aggregated from multiple sources. Caution should be exercised in using it in the provision of clinical care. This summary normalizes information from multiple sources, and as a consequence, information in this document may materially change the coding, format and clinical context of patient data. In addition, data may be omitted in some cases. CLINICAL DECISIONS SHOULD BE BASED ON THE PRIMARY CLINICAL RECORDS. [employer] provides no warranty or guarantee of the accuracy or completeness of information in this document.
== END 2023-08-19 11:05 | disposition home or self-care (01) ==
PROVIDERS: Emergency Provider Emergency Medicine; PCP Nurse Practitioner Family; Visit Provider Emergency Medicine
DX: M54.30 Sciatica, unspecified side (principal); G89.29 Other chronic pain; Z90.49 Acquired absence of other specified parts of digestive tract; F17.290 Nicotine dependence, other tobacco product, uncomplicated
CPT/HCPCS: 73502; 99282

== ENCOUNTER → 2023-09-19 | Outpatient (CLI) | payer OTHER, SELFPAY ==
[2023-09-19 13:10] LABS: hCG Titer Quant., Serum < 1 mIU/mL (1-3)
== END | disposition home or self-care (01) ==
PROVIDERS: PCP Nurse Practitioner Family; Referring Provider Obstetrics & Gynecology; Visit Provider Obstetrics & Gynecology
DX: N91.2 Amenorrhea, unspecified (principal)
CPT/HCPCS: 36415; 84702

== ENCOUNTER → 2023-10-18 | Outpatient (CLI) | payer OTHER, SELFPAY ==
[2023-10-18 15:31] LABS: Absolute Lymphocyte Count 1.07 X10^3/uL (0.83-4.51); Absolute Neutrophil Count 2.1 X10^3/uL (2.0-7.7); Basophil# 0.03 X10^3/uL; Basophil% 0.7 % (0-1); Eosinophil# 0.39 X10^3/uL; Eosinophils% 9.6 % (0-5); Hematocrit 34.7 % (37-47); Hemoglobin 10.2 g/dL (12.0-15.0); Lymphocyte # 1.07 X10^3/ul (0.83-4.51); Lymphocyte % 26.2 % (19-41); Mean Corp Hgb Conc 29.4 g/dL (32-36); Mean Corpuscular Hgb 21.5 pg (27.0-32.0); Mean Corpuscular Volume 73.1 fL (81-99); Mean Platelet Vol. 10.8 fl (6.2-12.0); Monocyte# 0.51 X10^3/uL; Monocyte% 12.5 % (0-10); NRBC Flagged by Analyzer 0 % (0-5); Neutrophil # 2.07 X10^3/uL (2.7-7.7); Neutrophil % 50.8 % (47-70); Platelet Count 338 K/mm3 (150-450); RBC Distribution Width SD 44.6 fl (35.1-43.9); Red Blood Count 4.75 M/mm3 (4.2-5.4); White Blood Count 4.1 K/mm3 (4.4-11.0)
[2023-10-18 15:51] LABS: Hemoglobin A1c 5.3 % (3.8-5.6)
[2023-10-18 15:56] LABS: ALB/GLOB Ratio 0.7 RATIO (0.9-2.4); AST(SGOT) 17 U/L (15-37); Alanine Aminotransfer ALT/SGPT 24 U/L (13-56); Alkaline Phosphatase 88 U/L (45-117); Anion Gap 4 (5-15); BUN 8 mg/dL (7-18); BUN/Creat Ratio 10.8 RATIO (10-20); Calcium,Total 8.7 mg/dL (8.5-10.1); Chloride 109 mmol/L (98-107); Cholesterol 149 mg/dL (200); Creatinine, Serum 0.74 mg/dL (0.55-1.02); EST Glomerular Filtration Rate 99 mL/min (>60); Est Glom Filt Rate - Afr Amer 120 mL/min (>60); Ferritin 20 ng/mL (8-252); Globulin 4.6 g/dL (2.2-4.2); Glucose 83 mg/dL (74-106); High Density Lipoprotein 42 mg/dL; Iron 16 ug/dL (50-170); Iron Binding Capacity,Total 415 ug/dL (250-450); Potassium 3.9 mmol/L (3.5-5.1); Protein, Total 7.6 g/dL (6.4-8.2); Sodium Level 138 mmol/L (136-145); T4 Free Direct 0.95 ng/dL (0.76-1.46); Thyroid Stim Hormone (TSH) 1.47 uIU/mL (0.358-3.74); Triglycerides 92 mg/dL; Very Low Density Lipoprotein 18 mg/dL (5-40)
== END | disposition home or self-care (01) ==
LOC: BIMLAB 11:55
PROVIDERS: PCP Nurse Practitioner; Referring Provider Nurse Practitioner; Visit Provider Nurse Practitioner
DX: Z00.00 Encounter for general adult medical examination without abnormal findings (principal); D50.9 Iron deficiency anemia, unspecified; Z86.32 Personal history of gestational diabetes; J06.9 Acute upper respiratory infection, unspecified
CPT/HCPCS: 36415; 80053; 80061; 82728; 83036; 83540; 83550; 84439; 84443; 85025; 87631

== ENCOUNTER → 2023-10-21 | Outpatient (CLI) | payer OTHER, SELFPAY ==
--- NOTE | 2023-10-21 12:35 | RAD_ITS ---
STUDY: X-RAY CHEST REASON FOR EXAM: Female, 27 years old. Fever and cough TECHNIQUE: PA and lateral views of the chest. COMPARISON: None. FINDINGS: The lungs are clear and expanded. There is no demonstrated pleural abnormality. Normal size heart. Normal mediastinum and bryan. Normal visualized pulmonary arteries. Normal visualized aortic arch and descending thoracic aorta. Normal visualized thoracic spine. Normal visualized ribs, clavicles, and shoulders. There is no demonstrated abnormality of the visualized soft tissue structures of the upper abdomen. RAD/Chest PA and Lateral IMPRESSION: Normal x-ray examination of the chest. Electronically Signed: Pipo Loza MD at 12:59 EDT ,
== END | disposition home or self-care (01) ==
LOC: MTRAD 12:35
PROVIDERS: PCP Nurse Practitioner; Referring Provider Physician Assistant; Visit Provider Physician Assistant
DX: R05.9 Cough, unspecified (principal)
CPT/HCPCS: 71046

== ENCOUNTER → 2023-10-31 | Outpatient (CLI) | payer OTHER, SELFPAY ==
[2023-10-31 09:39] LABS: Internal QC Validated? YES +Cl - CLEAR BKGD; Pregnancy, Urine Negative Negative
== END | disposition home or self-care (01) ==
LOC: LAB 09:07
PROVIDERS: PCP Nurse Practitioner; Referring Provider Anesthesiology Pain Medicine; Visit Provider Anesthesiology Pain Medicine
DX: Z32.00 Encounter for pregnancy test, result unknown (principal)
CPT/HCPCS: 81025

== ENCOUNTER → 2024-02-22 | Outpatient (CLI) | payer MEDICAID, SELFPAY ==
[2024-02-22 09:41] LABS: Absolute Lymphocyte Count 1.58 X10^3/uL (0.83-4.51); Absolute Neutrophil Count 5.2 X10^3/uL (2.0-7.7); Basophil# 0.04 X10^3/uL; Basophil% 0.5 % (0-1); Eosinophil# 0.11 X10^3/uL; Eosinophils% 1.5 % (0-5); Hematocrit 34.6 % (37-47); Hemoglobin 10.4 g/dL (12.0-15.0); Lymphocyte # 1.58 X10^3/ul (0.83-4.51); Lymphocyte % 21.7 % (19-41); Mean Corp Hgb Conc 30.1 g/dL (32-36); Mean Corpuscular Volume 69.8 fL (81-99); Mean Platelet Vol. 10.1 fl (6.2-12.0); Monocyte# 0.32 X10^3/uL; Monocyte% 4.4 % (0-10); NRBC Flagged by Analyzer 0 % (0-5); Neutrophil # 5.21 X10^3/uL (2.7-7.7); Neutrophil % 71.6 % (47-70); Platelet Count 413 K/mm3 (150-450); RBC Distribution Width CV 16.6 % (11.6-14.6); RBC Distribution Width SD 40.8 fl (35.1-43.9); Red Blood Count 4.96 M/mm3 (4.2-5.4); White Blood Count 7.3 K/mm3 (4.4-11.0)
[2024-02-22 10:08] LABS: Hemoglobin A1c 5.1 % (3.8-5.6)
[2024-02-22 10:10] LABS: hCG Titer Quant., Serum 105 mIU/mL (1-3)
[2024-02-22 10:17] LABS: ALB/GLOB Ratio 0.7 RATIO (0.9-2.4); AST(SGOT) 7 U/L (15-37); Alanine Aminotransfer ALT/SGPT 16 U/L (13-56); Alkaline Phosphatase 96 U/L (45-117); Anion Gap 6 (5-15); BUN 8 mg/dL (7-18); BUN/Creat Ratio 10.1 RATIO (10-20); Calcium,Total 8.9 mg/dL (8.5-10.1); Chloride 107 mmol/L (98-107); Creatinine, Serum 0.79 mg/dL (0.55-1.02); EST Glomerular Filtration Rate 91 mL/min (>60); Est Glom Filt Rate - Afr Amer 110 mL/min (>60); Globulin 4.6 g/dL (2.2-4.2); Glucose 99 mg/dL (74-106); Potassium 3.7 mmol/L (3.5-5.1); Protein, Total 7.6 g/dL (6.4-8.2); Sodium Level 137 mmol/L (136-145)
[2024-02-24 10:56] LABS: HIV - WCH Non-Reactive (Nonreactive); Hepatitis B Surface Antigen Non-Reactive (Nonreactive); Hepatitis C Antibody Non-Reactive (Nonreactive); Rubella IgG Reactive (Nonreactive); Syphilis Antibodies Non-reactive
== END | disposition home or self-care (01) ==
PROVIDERS: PCP Nurse Practitioner; Referring Provider Advanced Practice Midwife; Visit Provider Advanced Practice Midwife
DX: Z34.90 Encounter for supervision of normal pregnancy, unspecified, unspecified trimester (principal); N91.2 Amenorrhea, unspecified
CPT/HCPCS: 36415; 80053; 83036; 84702; 85025; 86703; 86762; 86780; 86803; 86850; 86900; 86901; 87340

== ENCOUNTER → 2024-02-27 | Outpatient (CLI) | payer MEDICAID, SELFPAY ==
[2024-02-27 09:49] LABS: hCG Titer Quant., Serum 610 mIU/mL (1-3)
== END | disposition home or self-care (01) ==
LOC: LAB 08:40
PROVIDERS: PCP Nurse Practitioner; Referring Provider Advanced Practice Midwife; Visit Provider Advanced Practice Midwife
DX: Z34.90 Encounter for supervision of normal pregnancy, unspecified, unspecified trimester (principal)
CPT/HCPCS: 36415; 84702

== ENCOUNTER 2024-03-08 11:26 | Emergency (ER) | payer MEDICAID, SELFPAY ==
[2024-03-08 11:27] VITALS: BP 124/68; PULSE 68; RESP 19; TEMP 36.4; O2SAT 100; BMI 40.9
--- NOTE | 2024-03-08 11:41 | ED.VIS.FEGU ---
HPI HPI - Female History of Present Illness Chief Complaint: Vag Bld, Preg Informant: patient Pain Pain: Positive for Pelvic Pain Context: Gradual Onset Timing: Intermittent Quality: Positive for Cramping Location: LLQ Worsened by: - (Nothing) Relieved by: - (Nothing) Bleeding Issue: Positive for Vaginal bleeding Onset: Today Context: Sudden Onset Timing: Continuous Current Severity: Spotting Maximum Severity: Spotting Associated Symptoms Associated Symptoms: Negative for Dysuria, Frequency or Hematuria Test: Positive P: 2 Narrative Narrative: Patient presents with vaginal bleeding that began today. Patient states she noted some spotting today when she wiped. Patient states she is somewhere between 5 and 9 weeks . Patient follows with [facility]. Patient admits to some mild cramping. Patient states it is worse on the left. Patient states nothing makes it better and nothing makes it worse. Patient states it is intermittent. Patient states she does have a history of ovarian cysts. [facility] Medical History Preventative health care Upper respiratory infection, viral Encounter to establish care Pelvic pain Nausea & vomiting Amenorrhea Wears glasses Anxiety Marijuana use Low iron Restless legs Asthma Shortness of breath on exertion Infected dental caries ADD (attention deficit disorder) Elevated d-dimer Internal derangement of left shoulder Cholelithiasis Home Medications ?Medication ?Instructions ?Recorded ?Last Taken ?Type albuterol sulfate 90 mcg/actuation 2 inh inhalation Q4-6H PRN 10/18/23 Unknown Rx breath activated powder inhaler shortness of breath or wheezing #1 ea docosahexaenoic acid 200 mg mg PO 02/21/24 Unknown History capsule ( DHA) Allergy/AdvReac Type Severity Reaction Status Date / Time No Known Allergies Allergy Verified 03/08/24 11:29 Family History Aunt Breast cancer, Onset Age: 50 Grandfather Diabetes Grandmother Diabetes Surgical History Hx laparoscopic cholecystectomy History of History of tonsillectomy Social History adopted: No household members: spouse and children number of children: 2 current occupational status: unemployed current occupation: [employer] current occupational exposures/hazards: No pets and animals: Yes ( taking care litter box ) pets and animals: cat(s) and dog(s) history of recent travel: No sexually active: Yes Smoking Status: Current every day smoker tobacco type: e-cigarettes Smokeless tobacco user: other Electronic Cigarette Use: with nicotine alcohol intake: current alcohol intake frequency: holidays/special occasions only details: Not while substance use type: marijuana well-balanced diet: about half the time caffeine: Yes Type: tea eating out: 1-3 times/week during the past year weight has: decreased > 10 lbs what type of physical activity do you participate in: none and walking seatbelt use: always do you feel safe at home: Yes 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[employer] ROS ROS ED Constitutional Constitutional ED: Denies chills or fever(s) Eyes Eyes: Denies blurry vision or change in vision ENT ENT ED: Denies rhinorrhea or sore throat Cardiovascular Cardiovascular: Denies chest pain or palpitations Respiratory/Chest Respiratory/Chest: Denies cough or dyspnea Gastrointestinal Gastrointestinal: Reports abdominal pain; Denies nausea or vomiting Genitourinary Genitourinary ED: Denies dysuria or hematuria Musculoskeletal Musculoskeletal: Denies back pain or neck pain Integumentary Denies abscess or rash Neurologic Neurologic: Denies headache(s) or weakness Allergic/Immunologic Allergic/Immunologic ED: Denies mouth swelling or urticaria EXAM Physical Exam Const Vital Signs: 03/08/24 11:27 03/08/24 13:49 Temperature 97.5 F L Temperature Source Temporal Pulse Rate 68 64 Respiratory Rate 19 H 16 Blood Pressure 124/68 H 124/72 H Blood Pressure Mean 86 89 Pulse Ox 100 100 Oxygen Delivery Method Room Air Room Air Positive well nourished and well developed General Appearance ED: well developed and NAD HEENT Reports moist mucous membranes Neck supple and no JVD Resp normal respiratory effort and clear to auscultation bilaterally Cardio regular rate and regular rhythm GI soft to palpation and non-distended Palpation: tender LLQ and suprapubic; Negative for guarding Neuro oriented x3, CN's II-XII intact bilaterally and no sensory deficits noted Sensorium / Orientation: alert Motor Exam: strength 5/5 throughout Psych mental status grossly normal MDM MDM MDM Narrative Medical decision making narrative: Differential diagnosis includes ectopic , threatened miscarriage, urinary tract infection, and viral illness. CBC will be obtained to assess for leukocytosis and anemia. Basic metabolic profile will be obtained to assess for electrolyte abnormality and renal function. Quantitative hCG will be obtained to assess for . Blood type was reviewed and was B+. Therefore, type and Rh will not be necessary. Urinalysis will be obtained to assess for urinary tract infection and hematuria. Lab Data Attestation: I reviewed the patient's lab results. Lab results narrative: CBC was reviewed. There is a mild anemia with a hemoglobin of 9.3 and hematocrit 31.1. The remainder was within normal limits. Quantitative hCG was reviewed and was [id number]. Urinalysis was reviewed. There is no evidence of urinary tract infection or hematuria. Labs: Laboratory Results - last 24 hr 03/08/24 03/08/24 12:14 12:57 WBC 7.5 RBC 4.43 Hgb 9.3 L Hct 31.1 L MCV 70.2 L MCH 21.0 L MCHC 29.9 L RDW Std Deviation 43.1 RDW Coeff of Kel 17.0 H Plt Count 355 MPV 9.7 Immature Gran % (Auto) 0.500 Neut % (Auto) 64.4 Lymph % (Auto) 25.5 Rains % (Auto) 6.5 Eos % (Auto) 2.4 Baso % (Auto) 0.7 Absolute Neuts (auto) 4.9 Absolute Lymphs (auto) 1.92 Nucleated RBC % 0 HCG, Quant 45118 H Urine Color Yellow Urine Clarity Clear Urine pH 6.5 Ur Specific [place] 1.015 Urine Protein Negative Urine Glucose (UA) Normal Urine Ketones Negative Urine Occult Blood 50 H Urine Nitrite Negative Urine Bilirubin Negative Urine Urobilinogen Normal Ur Leukocyte Esterase 500 H Urine RBC 0-5 SEEN Urine WBC 0-5 SEEN Ur Squamous Epith Cells 5-10 SEEN Amorphous Sediment 1+ Urine Bacteria 2+ Urine Mucus 0 SEEN Radiography Diagnostic Testing: Clinical Impression(s) from Imaging Studies Obstetrics Ultrasound 03/08/24 12:06 IMPRESSION: Intrauterine with an estimated gestational age of 6 weeks 2 days; no heart motion at this time likely secondary to very early intrauterine . Recommend close short-term interval follow-up to assess viability. Electronically Signed: Martha Lemos MD at 14:19 EDT , Pelvic ultrasound was obtained. There is an intrauterine with an estimated gestational age of 6 weeks and 2 days. There is no heart motion seen. This could be due to early intrauterine . This was interpreted by the radiologist and was also independently reviewed by myself. Treatment and Re-Evaluation Narrative: Patient was given IV fluids. Patient is feeling better on reevaluation. Patient was advised of her findings. Patient was advised that the lack of heartbeat on ultrasound could be very early or it could be an early miscarriage. Patient was instructed on vaginal rest. Patient was instructed to watch for any worsening bleeding, passing clots, or passing any tissue. Patient was instructed to follow-up with her [facility] in 2 days for repeat quantitative hCG. Patient understood and was agreeable with the plan. All questions were answered. Discharge Plan Triage Chief Complaint: Vag Bld, Preg ED Provider: Douglas Rolon Dx/Rx/DC Orders Clinical Impression: Threatened miscarriage, First trimester Instructions: ED Abdominal Pain, Early , Miscarriage Threatened Prescriptions: No Action albuterol sulfate 90 mcg/actuation aerosol powdr breath activated 2 inh inhalation Q4-6H PRN (Reason: shortness of breath or wheezing) Qty: 1 0RF DHA 200 mg capsule PO Primary Care Provider: Beata Cotton Referrals: Rose Marie Morales MD [Med Staff - Active Staff] - 2 Days Beata Cotton SELF PROPELLED [employer] OPERATOR-[facility] [Primary Care Provider] - 2 Days Print Language: Icelandic Disposition Disposition: Home, Self Care
--- NOTE | 2024-03-08 12:06 | US_ITS ---
HISTORY: Pelvic pain, vaginal bleeding. LMP 01/09/2024. TECHNIQUE: Transvaginal pelvic ultrasound was performed. 75 images. COMPARISON: 12/07/2022. FINDINGS: UTERUS: 10.3 x 5.5 x 6.3 cm. Small nabothian cysts in the cervix. Closed cervix. LEFT OVARY: 1.5 x 2 x 2.7 cm with small follicles. No adnexal masses. RIGHT OVARY: Not visualized due to overlying bowel gas. FREE FLUID: None. INTRAUTERINE GESTATIONAL SAC: Single. Mean sac diameter 1.5 cm corresponding to 6 weeks 2 days. POLE: [place] rump length 4 mm corresponding to 6 weeks 2 days. HEART MOTION: None at this time. US/Transvaginal w/Preg US IMPRESSION: Intrauterine with an estimated gestational age of 6 weeks 2 days; no heart motion at this time likely secondary to very early intrauterine . Recommend close short-term interval follow-up to assess viability. Electronically Signed: Martha Lemos MD at 14:19 EDT ,
[2024-03-08] MEDS: 0.9% Normal Saline (1000mL) 1,000 ML 999 ML IV (12:18)
[2024-03-08 12:20] LABS: Absolute Lymphocyte Count 1.92 X10^3/uL (0.83-4.51); Absolute Neutrophil Count 4.9 X10^3/uL (2.0-7.7); Basophil# 0.05 X10^3/uL; Basophil% 0.7 % (0-1); Eosinophil# 0.18 X10^3/uL; Eosinophils% 2.4 % (0-5); Hematocrit 31.1 % (37-47); Hemoglobin 9.3 g/dL (12.0-15.0); Lymphocyte # 1.92 X10^3/ul (0.83-4.51); Lymphocyte % 25.5 % (19-41); Mean Corp Hgb Conc 29.9 g/dL (32-36); Mean Corpuscular Volume 70.2 fL (81-99); Mean Platelet Vol. 9.7 fl (6.2-12.0); Monocyte# 0.49 X10^3/uL; Monocyte% 6.5 % (0-10); NRBC Flagged by Analyzer 0 % (0-5); Neutrophil # 4.85 X10^3/uL (2.7-7.7); Neutrophil % 64.4 % (47-70); Platelet Count 355 K/mm3 (150-450); RBC Distribution Width SD 43.1 fl (35.1-43.9); Red Blood Count 4.43 M/mm3 (4.2-5.4); White Blood Count 7.5 K/mm3 (4.4-11.0)
--- NOTE | 2024-03-08 12:35 | CM.ED ---
Social Work: Date of referral: 03/08/24 Reason for referral: Vaginal Bleeding/ Referred by: Social Work identification Patient provided consent to visit. Patient was lying down in the hospital bed upon entry with patient's at bedside. Patient reported she's been experiencing cramping even prior to the (estimated to be between 5 and 9 weeks) due to a cyst. fish hatchery worker provided support and also inquired about patient's smoking e-cigarettes which patient reported she's trying to quit as well as patient's marijuana use. Patient admitted to daily marijuana use to help with nausea and sleeping. Patient denied any current alcohol use. fish hatchery worker provided education about smoking and using drugs during at which point patient reported she smoked marijuana with her other children until she was 20 weeks along. fish hatchery worker encouraged patient to talk with her doctor at [facility] (patient has her first scheduled appointment on 03/12) about other possible options for nausea and sleeping other than marijuana. No other supports or resources requested at this time. Chey Mejia, PHARMACY ORDER ENTRY TECHNICIAN, PREANALYTICS TEAM LEAD
[2024-03-08 13:03] LABS: Mucous, Urine 0 SEEN /hpf (<or=2+)
[2024-03-08 13:06] LABS: Color, Urine Yellow (Yellow); Glucose, Dipstick Normal (Normal); Ketone-Dipstick Negative (Negative); Leukocyte Esterase-Dipstick 500 /ul (Negative); Nitrite-Dipstick Negative (Negative); Occult Blood-Urine 50 /ul (Negative); Protein-Dipstick Negative (Negative); Specific Gravity, Urine 1.015 (1.002-1.030); Urine Bilirubin Dipstick Negative (Negative); Urine Clarity Clear (Clear); Urine Urobilinogen Normal (Normal); Urine pH 6.5 (5.0 - 8.0)
[2024-03-08 13:18] LABS: Amorphous Sediment 1+; Bacteria 2+ /hpf (None Seen); Red Blood Cells-Urine 0-5 SEEN /hpf (0-5); Squamous Epithelial Cells - UA 5-10 SEEN /hpf (5-10); White Blood Cells 0-5 SEEN /hpf (0-5)
[2024-03-08 13:28] LABS: hCG Titer Quant., Serum 13025 mIU/mL (1-3)
[2024-03-08 13:49] VITALS: BP 124/72; PULSE 64; RESP 16; O2SAT 100
[2024-03-08 14:53] VITALS: BP 130/72; PULSE 62; RESP 17; TEMP 36.4; O2SAT 99
== END 2024-03-08 14:54 | disposition home or self-care (01) ==
PROVIDERS: Emergency Provider Emergency Medicine; PCP Nurse Practitioner; Visit Provider Emergency Medicine
DX: O20.0 Threatened abortion (principal); O99.331 Smoking (tobacco) complicating pregnancy, first trimester; Z3A.00 Weeks of gestation of pregnancy not specified; Z90.49 Acquired absence of other specified parts of digestive tract; F17.290 Nicotine dependence, other tobacco product, uncomplicated
CPT/HCPCS: 76817; 81001; 84702; 85025; 96360; 96361; 99283; J7030; A4216

== ENCOUNTER → 2024-03-12 | Outpatient (CLI) | payer MEDICAID, SELFPAY ==
[2024-03-12 15:16] LABS: Protein, Urine (Random) 13.1 mg/dL (<11.9); Protein:Creat Ratio 121 mg/g CRE (0-200)
[2024-03-12 15:21] LABS: Amphetamine Urine VISTA NEGATIVE (<1000 ng/mL); Barbiturate Urine VISTA NEGATIVE (< 200 ng/mL); Benzodiazepine Urine VISTA NEGATIVE (< 200 ng/mL); Cocaine Urine VISTA NEGATIVE (< 300 ng/mL); Ecstacy Urine VISTA NEGATIVE (< 500 ng/mL); Methadone Urine VISTA NEGATIVE (< 300 ng/mL); PCP Urine VISTA NEGATIVE (< 25 ng/mL); THC Urine VISTA POSITIVE (< 50 ng/mL); Vista UDS pH Range 6
[2024-03-16 03:13] LABS: Chlamydia By Nucleic Acid AMP Negative (Negative); Gonococcus By Nucleic Acid AMP Negative (Negative)
== END | disposition home or self-care (01) ==
LOC: LABSPEC 14:15
PROVIDERS: PCP Nurse Practitioner; Referring Provider Advanced Practice Midwife; Visit Provider Advanced Practice Midwife
DX: O09.299 Supervision of pregnancy with other poor reproductive or obstetric history, unspecified trimester (principal)
CPT/HCPCS: 80307; 82570; 84156; 87086; 87088; 87491; 87591

== ENCOUNTER → 2024-03-23 | Outpatient (CLI) | payer MEDICAID, SELFPAY ==
--- NOTE | 2024-03-23 12:49 | US_ITS ---
STUDY: FIRST TRIMESTER OBSTETRICAL ULTRASOUND REASON FOR EXAM: Female, 28 years old threatened -- stat read LMP: January 23, 2024. TECHNIQUE: Transvaginal TECHNICAL QUALITY: Adequate. PRIOR ULTRASOUND: None. FINDINGS: There is visualization of a single gestational sac in a normal intrauterine position. The mean sac diameter (MSD) measures 2.32 cm, indicating an estimated gestational age (EGA) of 7 weeks, 2 days. The gestational sac shape is within normal limits. There is a visualized yolk sac. The yolk sac measures 2.7 mm. The placenta is non-visualized. There is visualization of an embryo with no cardiac activity, consistent with intrauterine demise. The crown-rump length (CRL) measures 4.7 cm, indicating an estimated gestational age (EGA) of 6 weeks, 3 days. The estimated gestation age (EGA) by LMP is 10 weeks, 4 days. The estimated date of delivery (NICOLE) by LMP is October 15, 2024. The estimated gestation age (EGA) by US is 6 weeks, 6 days. The estimated date of delivery (NICOLE) by US is November 10, 2024. The uterus measures 11.2 cm x 9.6 x 5.6 cm. There is no demonstrated uterine fibroid. The cervix is closed. The right ovary was not visualized. The left ovary measures 2.97 x 2.5 cm x 1.5 cm. There is no left ovarian cyst. There is no visualized left adnexal mass or complex lesion. There is no fluid in the cul de sac. US/Transvaginal w/Preg US IMPRESSION: demise. Electronically Signed: Edvin Church MD at 13:49 EDT ,
== END | disposition home or self-care (01) ==
LOC: US 12:46
PROVIDERS: PCP Nurse Practitioner; Referring Provider Obstetrics & Gynecology; Visit Provider Obstetrics & Gynecology
DX: O20.0 Threatened abortion (principal); Z3A.00 Weeks of gestation of pregnancy not specified
CPT/HCPCS: 76817

== ENCOUNTER 2024-04-03 10:18 | Emergency (ER) | payer MEDICAID, SELFPAY ==
[2024-04-03 10:18] VITALS: BP 122/74; PULSE 83; RESP 16; TEMP 36.9; O2SAT 99; BMI 41.8
--- NOTE | 2024-04-03 11:14 | EKG12_ITS ---
Test Reason : CP Blood Pressure : / mmHG Vent. Rate : 068 BPM Atrial Rate : 068 BPM P-R Int : 154 ms QRS Dur : 092 ms QT Int : 400 ms P-R-T Axes : 017 037 016 degrees QTc Int : 425 ms Normal sinus rhythm Normal ECG Confirmed by LENCHO LEHMAN, NITO ([id number]), editor greeting card DAVID MIR ([id number]) on 04/07/2024 10:14:30 AM Referred By: TRINIDAD/GARRETT Confirmed By:NITO MUSA MD
--- NOTE | 2024-04-03 11:15 | EDS_ITS ---
HPI <CHRISTEL Medina - Last Filed: 04/03/24 13:53> History of Present Illness Chief Complaint: Chest Pain Narrative Narrative: Patient a 28-year-old female with history of drug abuse, ADD, obesity, anemia who recently had a miscarriage, followed by an ACUTE CARE CLINICAL NURSE SPECIALIST and having verification that there is no remains via ultrasound 1 week ago presents to the [facility] apartment with chest pain, dizziness. Patient states yesterday she was at a store when she felt that her heart was skipping beats, she felt dizzy, and ever since this episode that lasted approximately 2 to 3 minutes, she has been having chest pain. She states the chest pain is worse with inspiration. Denies any fever or chills. Patient does state that she is a slight cough however just a tickle in her throat. Patient denies any recent travel, recent surgeries, history of blood clots in the legs or lungs. [facility] <CHRISTEL Medina - Last Filed: 04/03/24 13:53> [facility] Medical History (Updated 04/03/24 @ 13:52 by CHRISTEL Medina) History of gestational diabetes in prior , currently H/O pre-eclampsia in prior , currently Supervision of high-risk Drug use affecting Preventative health care Upper respiratory infection, viral Encounter to establish care Pelvic pain Nausea & vomiting Amenorrhea Wears glasses Anxiety Marijuana use Low iron Restless legs Asthma Shortness of breath on exertion Infected dental caries ADD (attention deficit disorder) Elevated d-dimer Internal derangement of left shoulder Cholelithiasis Home Medications ?Medication ?Instructions ?Recorded ?Last Taken ?Type albuterol sulfate 90 mcg/actuation 2 inh inhalation Q4-6H PRN 10/18/23 Unknown Rx breath activated powder inhaler shortness of breath or wheezing #1 ea buspirone 5 mg tablet 5 mg PO BID #60 tabs 03/30/24 Unknown Rx Allergy/AdvReac Type Severity Reaction Status Date / Time No Known Allergies Allergy Verified 04/03/24 10:18 Family History Aunt Breast cancer, Onset Age: 50 Grandfather Diabetes Grandmother Diabetes Surgical History (Updated 04/03/24 @ 13:19 by Netta Dueñas RN) History of delivery, currently Hx laparoscopic cholecystectomy History of History of tonsillectomy Social History adopted: No household members: spouse and children number of children: 2 current occupational status: unemployed current occupation: [employer] current occupational exposures/hazards: No pets and animals: Yes ( taking care litter box ) pets and animals: cat(s) and dog(s) history of recent travel: No sexually active: Yes Smoking Status: Current every day smoker tobacco type: e-cigarettes Smokeless tobacco user: other Electronic Cigarette Use: with nicotine alcohol intake: current alcohol intake frequency: holidays/special occasions only details: Not while substance use type: marijuana well-balanced diet: about half the time caffeine: Yes Type: tea eating out: 1-3 times/week during the past year weight has: decreased > 10 lbs what type of physical activity do you participate in: none and walking seatbelt use: always do you feel safe at home: Yes 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 Positive for chest pain, palpitations Respiratory: Negative for any cough, sputum production, hemoptysis, dyspnea on exertion, orthopnea. Positive for dyspnea Gastrointestinal: Negative for any abdominal pain, nausea, vomiting, diarrhea, constipation, blood in stool, blood in vomit : Negative for any urinary frequency, dysuria, retention, blood in urine Muscle skeletal: Negative for any neck pain, back pain Neurological: Negative for any headache, syncope, dizziness Skin: Negative for any rashes, itching, abrasions, lacerations Psychiatric: Negative for any depression, anxiety, stress, suicidal ideation, homicidal ideation Hematologic: Negative for any excessive bruising, easy bleeding EXAM <CHRISTEL Medina - Last Filed: 04/03/24 13:53> Physical Exam Narrative Exam Narrative: Vital signs reviewed. Patient appears to be in no obvious distress. HEET: Head normocephalic atraumatic, TMs clear bilaterally. Posterior pharynx is clear, moist mucous membranes. Nares clear bilaterally. Neck: Supple with no lymphadenopathy or tenderness. No signs of meningismus. Cardiac: Regular rate and rhythm no murmurs gallops or rubs, equal peripheral pulses bilaterally. Respiratory: Lungs clear to auscultation bilaterally. No chest tenderness. Abdomen: Soft, nontender, nondistended. No abdominal bruit or pulsatile masses. No hepatosplenomegaly Extremities: No peripheral edema, no signs of gross trauma or deformity. Active full range of motion of all extremities. Neuro: Cranial nerves II through XII intact, no focal neurological deficits. Skin: Clean dry and intact with no rash, purpura, petechiae, vesicles or pustules. Backs/flank: No CVA tenderness, no midline spinal tenderness, no deformity. Psych: Normal mood and affect. No SI, HI or acute psychosis. Const Vital Signs: 04/03/24 10:18 04/03/24 10:18 04/03/24 11:18 Temperature 98.4 F Temperature Source Oral Pulse Rate 83 77 Respiratory Rate 16 17 Respiratory Effort Normal Non-Labored Blood Pressure 122/74 H 123/84 H Blood Pressure Mean 90 97 Pulse Ox 99 97 Oxygen Delivery Method Room Air 04/03/24 12:18 04/03/24 14:01 Temperature 97.5 F L Temperature Source Pulse Rate 76 71 Respiratory Rate 16 16 Respiratory Effort Blood Pressure 122/74 H 135/73 H Blood Pressure Mean 90 93 Pulse Ox 98 98 Oxygen Delivery Method <Dr. Jose Posadas DO - Last Filed: 04/03/24 15:10> Physical Exam Const Vital Signs: 04/03/24 10:18 04/03/24 10:18 04/03/24 11:18 Temperature 98.4 F Temperature Source Oral Pulse Rate 83 77 Respiratory Rate 16 17 Respiratory Effort Normal Non-Labored Blood Pressure 122/74 H 123/84 H Blood Pressure Mean 90 97 Pulse Ox 99 97 Oxygen Delivery Method Room Air 04/03/24 12:18 04/03/24 14:01 Temperature 97.5 F L Temperature Source Pulse Rate 76 71 Respiratory Rate 16 16 Respiratory Effort Blood Pressure 122/74 H 135/73 H Blood Pressure Mean 90 93 Pulse Ox 98 98 Oxygen Delivery Method [facility] <CHRISTEL Medina - Last Filed: 04/03/24 13:53> MDM Lab Data Labs: Laboratory Results - last 24 hr 04/03/24 04/03/24 10:05 11:55 WBC 8.7 RBC 4.60 Hgb 9.6 L Hct 33.1 L MCV 72.0 L MCH 20.9 L MCHC 29.0 L RDW Std Deviation 44.0 H RDW Coeff of Kel 17.2 H Plt Count 542 H MPV 9.6 Immature Gran % (Auto) 0.600 Neut % (Auto) 70.8 H Lymph % (Auto) 20.4 [place] % (Auto) 4.9 Eos % (Auto) 2.8 Baso % (Auto) 0.5 Absolute Neuts (auto) 6.2 Absolute Lymphs (auto) 1.78 Nucleated RBC % 0 D-Dimer Quant (PE/DVT) 0.54 H* Sodium 139 Potassium 3.3 L Chloride 105 Carbon Dioxide 28.0 Anion Gap 6 BUN 15 Creatinine 0.82 Estim Creat Clear Calc 111.80 Est GFR (MDRD) Af Amer 105 Est GFR (MDRD) Non-Af 87 BUN/Creatinine Ratio 18.2 Glucose 108 H Calcium 9.4 Troponin I High Sens 4 Urine Color Yellow Urine Clarity Sl. Cloudy Urine pH 6.5 Ur Specific [place] 1.020 Urine Protein 15 H Urine Glucose (UA) Normal Urine Ketones Negative Urine Occult Blood 25 H Urine Nitrite Negative Urine Bilirubin Negative Urine Urobilinogen Normal Ur Leukocyte Esterase 500 H Urine RBC 0 SEEN Urine WBC 0-5 SEEN Ur Squamous Epith Cells 0-5 SEEN Amorphous Sediment 2+ Urine Bacteria 0 SEEN Urine Mucus 0 SEEN Urine Test Positive H Radiography Diagnostic Testing: Clinical Impression(s) from Imaging Studies Chest X-Ray 04/03/24 11:30 IMPRESSION: Normal x-ray examination of the chest. Electronically Signed: Edvin Church MD at 12:30 EDT , Chest CTA 04/03/24 12:00 IMPRESSION: Normal CTA chest examination, without a demonstrated pulmonary embolism or arterial dissection. Electronically Signed: Edvin Church MD at 12:43 EDT , EKG Normal sinus rhythm: Attestation: I personally reviewed and interpreted this EKG as follows: Interpretation: Sinus Rhythm Comments: Normal sinus rhythm, rate of 60 bpm, TX interval 154 ms, QRS duration 82 ms, no acute ST elevation, no acute infarct noted. Treatment and Re-Evaluation :: Differential diagnosis includes however is not limited to: ACS, [place], anxiety, PE, community-acquired pneumonia, anemia Patient appears generally well, vital signs are stable, patient is nontoxic- appearing. Presenting to the emerged part with complaints of palpitations, chest pain, shortness of breath. Patient will receive a cardiac workup occluding chest x-ray, EKG, troponin. CBC and BMP will also be ordered as well as a D-dimer to ensure there is no PE. Two-view chest x-ray will be obtained. IV Toradol be given. All radiologic examinations were read, reviewed by the emergency department attending. From these reads, a plan of care will be put in place. Patient's CBC shows a stable anemia at 9.6, patient's D-dimer was elevated at 0.54 which is slightly however patient will receive a CTA of the chest to rule out a pulmonary embolus. Chemistries show slight low potassium 3.3, glucose 108. Calcium 9.4. Troponin was negative at 4. Chest x-ray two-view was neg ative for any acute process. Patient received a CTA of the chest, this was negative for any acute pulmonary embolus, atrial dissection, pneumonia. At this time, there is no evidence of any ACS, [place], PE, there is no evidence of infectious process. Patient's vital signs are stable. Did improve with Toradol. Instructed to maintain hydration, ibuprofen Tylenol for pain. She will continue to follow-up outpatient. She does have another appoint with her ACUTE CARE CLINICAL NURSE SPECIALIST. Patient stable for discharge. <Dr. Jose Posadas, DO - Last Filed: 04/03/24 15:10> [facility] History & Record Review Discussion w/independent historian: Patient and Significant other Lab Data Attestation: I reviewed the patient's lab results. Labs: Laboratory Results - last 24 hr 04/03/24 04/03/24 10:05 11:55 WBC 8.7 RBC 4.60 Hgb 9.6 L Hct 33.1 L MCV 72.0 L MCH 20.9 L MCHC 29.0 L RDW Std Deviation 44.0 H RDW Coeff of Kel 17.2 H Plt Count 542 H MPV 9.6 Immature Gran % (Auto) 0.600 Neut % (Auto) 70.8 H Lymph % (Auto) 20.4 [place] % (Auto) 4.9 Eos % (Auto) 2.8 Baso % (Auto) 0.5 Absolute Neuts (auto) 6.2 Absolute Lymphs (auto) 1.78 Nucleated RBC % 0 D-Dimer Quant (PE/DVT) 0.54 H* Sodium 139 Potassium 3.3 L Chloride 105 Carbon Dioxide 28.0 Anion Gap 6 BUN 15 Creatinine 0.82 Estim Creat Clear Calc 111.80 Est GFR (MDRD) Af Amer 105 Est GFR (MDRD) Non-Af 87 BUN/Creatinine Ratio 18.2 Glucose 108 H Calcium 9.4 Troponin I High Sens 4 Urine Color Yellow Urine Clarity Sl. Cloudy Urine pH 6.5 Ur Specific [place] 1.020 Urine Protein 15 H Urine Glucose (UA) Normal Urine Ketones Negative Urine Occult Blood 25 H Urine Nitrite Negative Urine Bilirubin Negative Urine Urobilinogen Normal Ur Leukocyte Esterase 500 H Urine RBC 0 SEEN Urine WBC 0-5 SEEN Ur Squamous Epith Cells 0-5 SEEN Amorphous Sediment 2+ Urine Bacteria 0 SEEN Urine Mucus 0 SEEN Urine Test Positive H Radiography Diagnostic Testing: Clinical Impression(s) from Imaging Studies Chest X-Ray 04/03/24 11:30 IMPRESSION: Normal x-ray examination of the chest. Electronically Signed: Edvin Church MD at 12:30 EDT , Chest CTA 04/03/24 12:00 IMPRESSION: Normal CTA chest examination, without a demonstrated pulmonary embolism or arterial dissection. Electronically Signed: Edvin Church MD at 12:43 EDT , Treatment and Re-Evaluation :: Differential diagnosis includes however is not limited to: ACS, [place], anxiety, PE, community-acquired pneumonia, anemia Patient appears generally well, vital signs are stable, patient is nontoxic-appearing. Presenting to the emerged part with complaints of palpitations, chest pain, shortness of breath. Patient will receive a cardiac workup occluding chest x-ray, EKG, troponin. CBC and BMP will also be ordered as well as a D-dimer to ensure there is no PE. Two-view chest x-ray will be obtained. IV Toradol be given. All radiologic examinations were read, reviewed by the emergency department attending. From these reads, a plan of care will be put in place. Patient's CBC shows a stable anemia at 9.6, patient's D-dimer was elevated at 0.54 which is slightly however patient will receive a CTA of the chest to rule out a pulmonary embolus. Chemistries show slight low potassium 3.3, glucose 108. Calcium 9.4. Troponin was negative at 4. Chest x-ray two-view was negative for any acute process. Patient received a CTA of the chest, this was negative for any acute pulmonary embolus, atrial dissection, pneumonia. At this time, there is no evidence of any ACS, [place], PE, there is no evidence of infectious process. Patient's vital signs are stable. Did improve with Toradol. Instructed to maintain hydration, ibuprofen Tylenol for pain. She will continue to follow-up outpatient. She does have another appoint with her ACUTE CARE CLINICAL NURSE SPECIALIST. Patient stable for discharge. I have personally performed a face to face assessment of the patient and have reviewed the LACHO Note. I performed a substantive portion of the visit including all aspects of the following. My daly findings include: History is 28-year-old female was shopping and was standing when she states that she felt like her heart had stopped to pass out. She has had some chest discomfort since. Patient recently had a miscarriage and has been following this resting comfortably in the bed no acute distress. Exam is afebrile vital signs are stable. Heart appears of the regular murmur noted x 3. Lung sounds are clear and equal Medical Decison Making my independent interpretation of the chest x-ray is no acute process. CTA of the chest was obtained due to elevated D-dimer and is negative for pulmonary embolism or infiltrate. Troponin negative electrolytes within normal limits. This point I think the patient could be discharged home would recommend PCP follow-up returning here for worsening Discharge Plan Triage Chief Complaint: Chest Pain ED Midlevel Provider: Augie Vallejo ED Provider: Jose Posadas Dx/Rx/DC Orders Clinical Impression: Chest pain, Heart palpitations, Acute dyspnea Instructions: ED Chest Pain, Uncertain Cause, ED Dyspnea, ED Palpitations Prescriptions: No Action albuterol sulfate 90 mcg/actuation aerosol powdr breath activated 2 inh inhalation Q4-6H PRN (Reason: shortness of breath or wheezing) Qty: 1 0RF buspirone 5 mg tablet 5 mg PO BID Qty: 60 12RF Primary Care Provider: Beata Cotton Referrals: Beata Cotton NP-C [Primary Care Provider] - Activity Restrictions/Additional Instructions: Continue to follow-up outpatient. Return here for any worsening symptoms. Good negative CAT scan of the chest today, all your laboratory values looked well. Print Language: Armenian Disposition Disposition: Home, Self Care Discharge Date/Time: 04/03/24 14:02
[2024-04-03 11:18] VITALS: BP 123/84; PULSE 77; RESP 17; O2SAT 97
--- NOTE | 2024-04-03 11:30 | RAD_ITS ---
STUDY: X-RAY CHEST REASON FOR EXAM: Female, 28 years old. Cough TECHNIQUE: PA and lateral views of the chest. COMPARISON: Comparison is made with prior study October 21, 2023. FINDINGS: EKG electrodes are seen. The lungs are clear and expanded. Scattered calcified granulomas. There is no demonstrated pleural abnormality. Normal size heart. Normal mediastinum and bryan. Normal visualized pulmonary arteries. Normal visualized aortic arch and descending thoracic aorta. Normal visualized thoracic spine. Normal visualized ribs, clavicles, and shoulders. There is no demonstrated abnormality of the visualized soft tissue structures of the upper abdomen. RAD/Chest PA and Lateral IMPRESSION: Normal x-ray examination of the chest. Electronically Signed: Edvin Church MD at 12:30 EDT ,
[2024-04-03 11:43] LABS: Absolute Lymphocyte Count 1.78 X10^3/uL (0.83-4.51); Absolute Neutrophil Count 6.2 X10^3/uL (2.0-7.7); Basophil# 0.04 X10^3/uL; Basophil% 0.5 % (0-1); Eosinophil# 0.24 X10^3/uL; Eosinophils% 2.8 % (0-5); Hematocrit 33.1 % (37-47); Hemoglobin 9.6 g/dL (12.0-15.0); Lymphocyte # 1.78 X10^3/ul (0.83-4.51); Lymphocyte % 20.4 % (19-41); Mean Corpuscular Hgb 20.9 pg (27.0-32.0); Mean Platelet Vol. 9.6 fl (6.2-12.0); Monocyte# 0.43 X10^3/uL; Monocyte% 4.9 % (0-10); NRBC Flagged by Analyzer 0 % (0-5); Neutrophil # 6.18 X10^3/uL (2.7-7.7); Neutrophil % 70.8 % (47-70); Platelet Count 542 K/mm3 (150-450); RBC Distribution Width CV 17.2 % (11.6-14.6); White Blood Count 8.7 K/mm3 (4.4-11.0)
[2024-04-03 11:56] LABS: D-Dimer Quantitative (DVT/PE) 0.54 FEU/ug/m (0.27-0.49)
[2024-04-03 11:57] LABS: Anion Gap 6 (5-15); BUN 15 mg/dL (7-18); BUN/Creat Ratio 18.2 RATIO (10-20); Calcium,Total 9.4 mg/dL (8.5-10.1); Chloride 105 mmol/L (98-107); Creatinine, Serum 0.82 mg/dL (0.55-1.02); EST Glomerular Filtration Rate 87 mL/min (>60); Est Glom Filt Rate - Afr Amer 105 mL/min (>60); Glucose 108 mg/dL (74-106); Potassium 3.3 mmol/L (3.5-5.1); Sodium Level 139 mmol/L (136-145); Troponin-I HS 4 pg/mL (3.0-54.0)
--- NOTE | 2024-04-03 12:00 | CT_ITS ---
STUDY: CTA CHEST REASON FOR EXAM: Female, 28 years old. Shortness of breath RADIATION DOSAGE (If Supplied By Facility): CTDIvol = ( 13.85 ) mGy, DLP = ( 506.51 ) mGycm TECHNIQUE: The examination was performed with the intravenous administration of IV 100mL [id number]-[id number]. Post-processing of the angiographic images was performed, with multiplanar reformation and 3D reconstruction. Individualized dose optimization techniques were used for this CT. COMPARISON: None. FINDINGS: Normal enhancement of the main pulmonary artery and right and left pulmonary arteries. Normal enhancement of the bilateral peripheral pulmonary arteries. There is no demonstrated pulmonary embolism. Normal thoracic aorta and visualized great vessels. There is no demonstrated aortic dissection. Normal heart and pericardium. Normal mediastinum. Normal hilar regions. Normal visualized trachea and bronchi. The lungs are well expanded. Normal pulmonary parenchyma. Normal pleura. Normal chest wall structures. Normal osseous structures. Findings suggestive of a 1.7 cm x 1.6 cm left adrenal adenoma. The patient is status post cholecystectomy. Small hiatal hernia. CT/CTA Chest W/WO Contrast IMPRESSION: Normal CTA chest examination, without a demonstrated pulmonary embolism or arterial dissection. Electronically Signed: Edvin Church MD at 12:43 EDT ,
[2024-04-03 12:01] LABS: Bacteria 0 SEEN /hpf (None Seen); Mucous, Urine 0 SEEN /hpf (<or=2+); Red Blood Cells-Urine 0 SEEN /hpf (0-5)
[2024-04-03 12:07] LABS: Color, Urine Yellow (Yellow); Glucose, Dipstick Normal (Normal); Ketone-Dipstick Negative (Negative); Leukocyte Esterase-Dipstick 500 /ul (Negative); Nitrite-Dipstick Negative (Negative); Occult Blood-Urine 25 /ul (Negative); Protein-Dipstick 15 mg/dl (Negative); Urine Bilirubin Dipstick Negative (Negative); Urine Clarity Sl. Cloudy (Clear); Urine Urobilinogen Normal (Normal); Urine pH 6.5 (5.0 - 8.0)
[2024-04-03 12:14] LABS: Amorphous Sediment 2+; Internal QC Validated? YES +Cl - CLEAR BKGD; Squamous Epithelial Cells - UA 0-5 SEEN /hpf (5-10); White Blood Cells 0-5 SEEN /hpf (0-5)
[2024-04-03 12:16] LABS: Pregnancy, Urine Positive Negative
[2024-04-03 12:18] VITALS: BP 122/74; PULSE 76; RESP 16; O2SAT 98
[2024-04-03] MEDS: Ketorolac 15 MG/ML Vial IV (12:27)
[2024-04-03 14:01] VITALS: BP 135/73; PULSE 71; RESP 16; TEMP 36.4; O2SAT 98
== END 2024-04-03 14:02 | disposition home or self-care (01) ==
PROVIDERS: Nurse Practitioner; Emergency Provider Emergency Medicine; PCP Nurse Practitioner; Visit Provider Emergency Medicine
DX: R07.9 Chest pain, unspecified (principal); R06.00 Dyspnea, unspecified; R00.2 Palpitations; E66.9 Obesity, unspecified; F17.290 Nicotine dependence, other tobacco product, uncomplicated; Z79.899 Other long term (current) drug therapy
CPT/HCPCS: 71046; 71275; 80048; 81001; 81025; 84484; 85025; 85379; 93005; 96374; 99284; Q9967; A4216

== ENCOUNTER 2024-07-30 14:31 | Emergency (ER) | payer MEDICAID, SELFPAY ==
[2024-07-30 14:32] VITALS: BP 123/76; PULSE 90; RESP 15; TEMP 36.4; O2SAT 98; BMI 41.5
--- NOTE | 2024-07-30 15:53 | US_ITS ---
PROCEDURE: TRANSVAGINAL W/PREG US REASON FOR EXAM: Left pelvic pain. COMPARISON: None. FINDINGS Gestational sac measures 8 mm which dates to 5 weeks and 4 days. A yolk sac measures 2 mm. No pole visualized which may be due to early dating. Estimated delivery date by ultrasound is 03/28/2025. The uterus measures 10.4 x 5.4 x 6.2 cm. Multiple nabothian cysts are present. No free fluid in the cul-de-sac. The right ovary is not visualized due to overlying bowel gas. The left ovary measures 2.7 x 2.0 x 1.8 cm with preserved vascular flow. US/Transvaginal w/Preg US IMPRESSION: Gestational sac as above. Reading Location: [id number]
--- NOTE | 2024-07-30 15:55 | EX.ED.DYSGE1 ---
HPI <CHRISTEL Medina - Last Filed: 07/30/24 19:08> History of Present Illness Chief Complaint: Flank Pain Narrative Narrative: Patient is a 28-year-old female with history of ADD, obesity, asthma who presents to the emergency department with left lower abdominal pain. Patient is a 4 para 2 1. Patient states that she took a test last Saturday on the July. Patient last menstrual cycle was early May. Patient states that she had an ultrasound done at the [facility] and they were concerned about the area of the gestational sac. Patient is B+ blood type. Here for evaluation. Has not seen her RECONSTRUCTIVE SURGEON at [facility] yet.Denies any vaginal discharge, vaginal bleeding PFSH <CHRISTEL Medina - Last Filed: 07/30/24 19:08> [facility] Medical History (Updated 07/30/24 @ 19:08 by CHRISTEL Medina) History of gestational diabetes in prior , currently H/O pre-eclampsia in prior , currently Supervision of high-risk Drug use affecting Preventative health care Upper respiratory infection, viral Encounter to establish care Pelvic pain Nausea & vomiting Amenorrhea Wears glasses Anxiety Marijuana use Low iron Restless legs Asthma Shortness of breath on exertion Infected dental caries ADD (attention deficit disorder) Elevated d-dimer Internal derangement of left shoulder Cholelithiasis Home Medications ?Medication ?Instructions ?Recorded ?Last Taken ?Type albuterol sulfate 90 mcg/actuation 2 inh inhalation Q4-6H PRN 10/18/23 Unknown Rx breath activated powder inhaler shortness of breath or wheezing #1 ea buspirone 5 mg tablet 5 mg PO BID #60 tabs 03/30/24 Unknown Rx Allergy/AdvReac Type Severity Reaction Status Date / Time No Known Allergies Allergy Verified 07/30/24 14:32 Family History Aunt Breast cancer, Onset Age: 50 Grandfather Diabetes Grandmother Diabetes Surgical History History of delivery, currently Hx laparoscopic cholecystectomy History of History of tonsillectomy Social History adopted: No household members: spouse and children number of children: 2 current occupational status: unemployed current occupation: [employer] current occupational exposures/hazards: No pets and animals: Yes ( taking care litter box ) pets and animals: cat(s) and dog(s) history of recent travel: No sexually active: Yes Smoking Status: Current every day smoker tobacco type: e-cigarettes Smokeless tobacco user: other Electronic Cigarette Use: with nicotine alcohol intake: current alcohol intake frequency: holidays/special occasions only details: Not while substance use type: marijuana well-balanced diet: about half the time caffeine: Yes Type: tea eating out: 1-3 times/week during the past year weight has: decreased > 10 lbs what type of physical activity do you participate in: none and walking seatbelt use: always do you feel safe at home: Yes 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 Positive for lower abdominal pain, worse on left lower abdomen : Negative for any urinary frequency, dysuria, retention, blood in urine Muscle skeletal: Negative for any neck pain, back pain Neurological: Negative for any headache, syncope, dizziness Skin: Negative for any rashes, itching, abrasions, lacerations Psychiatric: Negative for any depression, anxiety, stress, suicidal ideation, homicidal ideation Hematologic: Negative for any excessive bruising, easy bleeding EXAM <CHRISTEL Medina - Last Filed: 07/30/24 19:08> Physical Exam Const Vital Signs: 07/30/24 14:32 07/30/24 16:32 07/30/24 18:00 Temperature 97.5 F L Temperature Source Temporal Pulse Rate 90 72 78 Respiratory Rate 15 16 16 Blood Pressure 123/76 H 130/70 H 128/79 H Blood Pressure Mean 91 90 95 Pulse Ox 98 99 98 Oxygen Delivery Method Room Air <Dr. Jose Posadas DO - Last Filed: 07/30/24 19:29> Physical Exam Const Vital Signs: 07/30/24 14:32 07/30/24 16:32 07/30/24 18:00 Temperature 97.5 F L Temperature Source Temporal Pulse Rate 90 72 78 Respiratory Rate 15 16 16 Blood Pressure 123/76 H 130/70 H 128/79 H Blood Pressure Mean 91 90 95 Pulse Ox 98 99 98 Oxygen Delivery Method Room Air MDM <CHRISTEL Medina - Last Filed: 07/30/24 19:08> [facility] Lab Data Labs: Laboratory Results - last 24 hr 07/30/24 07/30/24 07/30/24 15:52 16:02 17:45 WBC 9.0 RBC 4.66 Hgb 9.1 L Hct 30.1 L MCV 64.6 L MCH 19.5 L MCHC 30.2 L RDW Std Deviation 46.6 H RDW Coeff of Kel 20.9 H Plt Count 467 H MPV 10.2 Immature Gran % (Auto) 0.600 Neut % (Auto) 70.4 H Lymph % (Auto) 21.4 [place] % (Auto) 5.3 Eos % (Auto) 1.7 Baso % (Auto) 0.6 Absolute Neuts (auto) 6.3 Absolute Lymphs (auto) 1.93 Nucleated RBC % 0 Polychromasia 1+ Anisocytosis 1+ Target Cells RARE Ovalocytes 1+ Sodium 136 Potassium 3.4 L Chloride 106 Carbon Dioxide 25.0 Anion Gap 5 BUN 8 Creatinine 0.67 Estim Creat Clear Calc 139.35 Est GFR (MDRD) Af Amer 132 Est GFR (MDRD) Non-Af 109 BUN/Creatinine Ratio 11.9 Glucose 88 Calcium 9.0 HCG, Quant 4688 H Serum , Qual Cancelled Urine Color Yellow Urine Clarity Turbid Urine pH 6.5 Ur Specific [place] 1.015 Urine Protein Negative Urine Glucose (UA) Normal Urine Ketones Negative Urine Occult Blood Negative Urine Nitrite Negative Urine Bilirubin Negative Urine Urobilinogen Normal Ur Leukocyte Esterase 500 H Urine RBC 0 SEEN Urine WBC 10-25 SEEN Ur Squamous Epith Cells 5-10 SEEN Urine Bacteria RARE Urine Mucus 0 SEEN Radiography Diagnostic Testing: Clinical Impression(s) from Imaging Studies Obstetrics Ultrasound 07/30/24 15:53 IMPRESSION: Gestational sac as above. Reading Location: [facility] Treatment and Re-Evaluation :: Differential diagnosis includes however is not limited to: Ectopic , threatened miscarriage, kidney stone, diverticulitis, UTI, ovarian cyst Patient appears generally well, vital signs are stable, patient is nontoxic-appearing. Presenting to the emergency department with complaints of left lower abdominal pain, positive test. Patient did have ultrasound at a woman's clinic, inserted for gestational sac. Patient will receive a repeat transvaginal ultrasound as well as basic laboratory values including CBC, BMP, hCG quantitative. All radiologic examinations were read, reviewed by the emergency department attending. From these reads, a plan of care will be put in place. Patient's laboratory values show a chronic anemia with a hemoglobin of 9.1, patient's chemistries are unremarkable, patient's hCG quant was 4688, the lab value that she got a couple days ago was 3000, it is improving and going up. I did perform a ultrasound transvaginal, this showed a gestational sac however it measures 8 mm, dates of 5 weeks and 4 days, this could be too early. At this time, patient will continue to follow-up outpatient. Urinalysis is negative for any acute infection. Patient will follow-up outpatient with RECONSTRUCTIVE SURGEON. Tylenol did improve the patient's pain. Stable for discharge <Dr. Jose Posadas, DO - Last Filed: 07/30/24 19:29> [facility] Lab Data Attestation: I reviewed the patient's lab results. Labs: Laboratory Results - last 24 hr 07/30/24 07/30/24 07/30/24 15:52 16:02 17:45 WBC 9.0 RBC 4.66 Hgb 9.1 L Hct 30.1 L MCV 64.6 L MCH 19.5 L MCHC 30.2 L RDW Std Deviation 46.6 H RDW Coeff of Kel 20.9 H Plt Count 467 H MPV 10.2 Immature Gran % (Auto) 0.600 Neut % (Auto) 70.4 H Lymph % (Auto) 21.4 [place] % (Auto) 5.3 Eos % (Auto) 1.7 Baso % (Auto) 0.6 Absolute Neuts (auto) 6.3 Absolute Lymphs (auto) 1.93 Nucleated RBC % 0 Polychromasia 1+ Anisocytosis 1+ Target Cells RARE Ovalocytes 1+ Sodium 136 Potassium 3.4 L Chloride 106 Carbon Dioxide 25.0 Anion Gap 5 BUN 8 Creatinine 0.67 Estim Creat Clear Calc 139.35 Est GFR (MDRD) Af Amer 132 Est GFR (MDRD) Non-Af 109 BUN/Creatinine Ratio 11.9 Glucose 88 Calcium 9.0 HCG, Quant 4688 H Serum , Qual Cancelled Urine Color Yellow Urine Clarity Turbid Urine pH 6.5 Ur Specific [place] 1.015 Urine Protein Negative Urine Glucose (UA) Normal Urine Ketones Negative Urine Occult Blood Negative Urine Nitrite Negative Urine Bilirubin Negative Urine Urobilinogen Normal Ur Leukocyte Esterase 500 H Urine RBC 0 SEEN Urine WBC 10-25 SEEN Ur Squamous Epith Cells 5-10 SEEN Urine Bacteria RARE Urine Mucus 0 SEEN Radiography Diagnostic Testing: Clinical Impression(s) from Imaging Studies Obstetrics Ultrasound 07/30/24 15:53 IMPRESSION: Gestational sac as above. Reading Location: [facility] Treatment and Re-Evaluation :: Differential diagnosis includes however is not limited to: Ectopic , threatened miscarriage, kidney stone, diverticulitis, UTI, ovarian cyst Patient appears generally well, vital signs are stable, patient is nontoxic-appearing. Presenting to the emergency department with complaints of left lower abdominal pain, positive test. Patient did have ultrasound at a woman's clinic, inserted for gestational sac. Patient will receive a repeat transvaginal ultrasound as well as basic laboratory values including CBC, BMP, hCG quantitative. All radiologic examinations were read, reviewed by the emergency department attending. From these reads, a plan of care will be put in place. Patient's laboratory values show a chronic anemia with a hemoglobin of 9.1, patient's chemistries are unremarkable, patient's hCG quant was 4688, the lab value that she got a couple days ago was 3000, it is improving and going up. I did perform a ultrasound transvaginal, this showed a gestational sac however it measures 8 mm, dates of 5 weeks and 4 days, this could be too early. At this time, patient will continue to follow-up outpatient. Urinalysis is negative for any acute infection. Patient will follow-up outpatient with RECONSTRUCTIVE SURGEON. Tylenol did improve the patient's pain. Stable for discharge I have personally performed a face to face assessment of the patient and have reviewed the LACHO Note. I performed a substantive portion of the visit including all aspects of the following. My daly findings include: History is 28-year-old female states that she is . She believes she may be 9 to 10 weeks by dates. States that she had a pelvic ultrasound performed at clinic which showed a sac but no definitive VB. She states that yesterday she had a quantitative hCG which was below 3000. She states that she was advised that she is going to need to schedule follow-up to further evaluate this. However she developed pain in the left side of her abdomen. No bleeding or discharge. No urinary symptoms no fever. Because of the pain she decided to come to emergency. Exam is well-appearing female sitting comfortably in bed no apparent distress vital signs are stable. Medical Decison Making quantitative hCG is 4688. Formal pelvic ultrasound demonstrates gestational sac but no definitive fetus no suggestion of ectopic in the pelvis. White count is normal at 9 hemoglobin 9.1 platelet count of 467. Urinalysis shows contamination but no overt infection. Patient received Tylenol for pain with some improvement. No open have her follow-up with obstetrics Discharge Plan Triage Chief Complaint: Flank Pain ED Midlevel Provider: Augie Vallejo ED Provider: Jose Posadas Dx/Rx/DC Orders Clinical Impression: Early stage of , Acute flank pain Instructions: 1st Trimester, ED Abdominal Pain Unkn Cause Fem Prescriptions: No Action albuterol sulfate 90 mcg/actuation aerosol powdr breath activated 2 inh inhalation Q4-6H PRN (Reason: shortness of breath or wheezing) Qty: 1 0RF buspirone 5 mg tablet 5 mg PO BID Qty: 60 12RF Primary Care Provider: Care Physician,No Primary Referrals: Rose Marie Morales MD [Med Staff - Active Staff] - Care Physician,No Primary [Primary Care Provider] - Activity Restrictions/Additional Instructions: Please follow-up outpatient. Print Language: Malay Disposition Disposition: Home, Self Care
[2024-07-30 16:15] LABS: Absolute Lymphocyte Count 1.93 X10^3/uL (0.83-4.51); Absolute Neutrophil Count 6.3 X10^3/uL (2.0-7.7); Basophil# 0.05 X10^3/uL; Basophil% 0.6 % (0-1); Eosinophil# 0.15 X10^3/uL; Eosinophils% 1.7 % (0-5); Hematocrit 30.1 % (37-47); Hemoglobin 9.1 g/dL (12.0-15.0); Lymphocyte # 1.93 X10^3/ul (0.83-4.51); Lymphocyte % 21.4 % (19-41); Mean Corp Hgb Conc 30.2 g/dL (32-36); Mean Corpuscular Hgb 19.5 pg (27.0-32.0); Mean Corpuscular Volume 64.6 fL (81-99); Mean Platelet Vol. 10.2 fl (6.2-12.0); Monocyte# 0.48 X10^3/uL; Monocyte% 5.3 % (0-10); NRBC Flagged by Analyzer 0 % (0-5); Neutrophil # 6.34 X10^3/uL (2.7-7.7); Neutrophil % 70.4 % (47-70); POSITIVE MORPHOLOGY YES; Platelet Count 467 K/mm3 (150-450); RBC Distribution Width CV 20.9 % (11.6-14.6); RBC Distribution Width SD 46.6 fl (35.1-43.9); Red Blood Count 4.66 M/mm3 (4.2-5.4)
[2024-07-30 16:31] LABS: Differential Indicated SCAN CRITERIA MET
[2024-07-30 16:32] VITALS: BP 130/70; PULSE 72; RESP 16; O2SAT 99
[2024-07-30 17:40] LABS: Anisocytosis 1+; Ovalocyte 1+; Polychromasia 1+
[2024-07-30 17:41] LABS: Target Cells RARE
[2024-07-30 17:53] LABS: Mucous, Urine 0 SEEN /hpf (<or=2+); Red Blood Cells-Urine 0 SEEN /hpf (0-5)
[2024-07-30 17:54] LABS: Anion Gap 5 (5-15); BUN 8 mg/dL (7-18); BUN/Creat Ratio 11.9 RATIO (10-20); Chloride 106 mmol/L (98-107); Creatinine, Serum 0.67 mg/dL (0.55-1.02); EST Glomerular Filtration Rate 109 mL/min (>60); Est Glom Filt Rate - Afr Amer 132 mL/min (>60); Estimated Creatinine Clearance 139.35 ml/min; Glucose 88 mg/dL (74-106); Potassium 3.4 mmol/L (3.5-5.1); Sodium Level 136 mmol/L (136-145)
[2024-07-30] MEDS: Acetaminophen 500 MG Tablet 1000 MG PO (17:54)
[2024-07-30 18:00] VITALS: BP 128/79; PULSE 78; RESP 16; O2SAT 98
[2024-07-30 18:01] LABS: Color, Urine Yellow (Yellow); Glucose, Dipstick Normal (Normal); Ketone-Dipstick Negative (Negative); Leukocyte Esterase-Dipstick 500 /ul (Negative); Nitrite-Dipstick Negative (Negative); Occult Blood-Urine Negative /ul (Negative); Protein-Dipstick Negative (Negative); Specific Gravity, Urine 1.015 (1.002-1.030); Urine Bilirubin Dipstick Negative (Negative); Urine Clarity Turbid (Clear); Urine Urobilinogen Normal (Normal); Urine pH 6.5 (5.0 - 8.0)
[2024-07-30 18:20] LABS: hCG Titer Quant., Serum 4688 mIU/mL (1-3)
[2024-07-30 18:39] LABS: Squamous Epithelial Cells - UA 5-10 SEEN /hpf (5-10); White Blood Cells 10-25 SEEN /hpf (0-5)
[2024-07-30 18:40] LABS: Bacteria RARE /hpf (None Seen)
== END 2024-07-30 19:57 | disposition home or self-care (01) ==
PROVIDERS: Nurse Practitioner; Emergency Provider Emergency Medicine; Visit Provider Emergency Medicine
DX: O26.891 Other specified pregnancy related conditions, first trimester (principal); R10.32 Left lower quadrant pain; O99.211 Obesity complicating pregnancy, first trimester; E66.9 Obesity, unspecified; O99.511 Diseases of the respiratory system complicating pregnancy, first trimester; J45.909 Unspecified asthma, uncomplicated; O99.331 Smoking (tobacco) complicating pregnancy, first trimester; F17.290 Nicotine dependence, other tobacco product, uncomplicated; Z3A.01 Less than 8 weeks gestation of pregnancy
CPT/HCPCS: 84703; 76817; 80048; 81001; 84702; 85025; 99283

== ENCOUNTER → 2024-08-17 | Outpatient (CLI) | payer MEDICAID, SELFPAY ==
[2024-08-17 17:30] LABS: Protein, Urine (Random) 20.7 mg/dL (<11.9); Protein:Creat Ratio 111 mg/g CRE (0-200)
[2024-08-20 05:07] LABS: Chlamydia By Nucleic Acid AMP Negative (Negative); Gonococcus By Nucleic Acid AMP Negative (Negative)
== END | disposition home or self-care (01) ==
LOC: BWCLAB 15:29 → LABSPEC 08-18 16:45
PROVIDERS: Referring Provider Obstetrics & Gynecology; Visit Provider Obstetrics & Gynecology
DX: O09.90 Supervision of high risk pregnancy, unspecified, unspecified trimester (principal); Z3A.00 Weeks of gestation of pregnancy not specified
CPT/HCPCS: 82570; 84156; 87086; 87491; 87591

== ENCOUNTER → 2024-09-07 | Outpatient (CLI) | payer MEDICAID, SELFPAY | END | disposition home or self-care (01) | LOC: BWCLAB 13:11 | PROVIDERS: Obstetrics & Gynecology; Visit Provider Nurse Practitioner Women's Health | DX: O09.90 Supervision of high risk pregnancy, unspecified, unspecified trimester (principal); Z3A.00 Weeks of gestation of pregnancy not specified | CPT/HCPCS: 36415 ==

== ENCOUNTER → 2024-09-17 | Outpatient (CLI) | payer MEDICAID, SELFPAY ==
[2024-09-17 12:21] LABS: Absolute Lymphocyte Count 1.43 X10^3/uL (0.83-4.51); Basophil# 0.03 X10^3/uL; Basophil% 0.3 % (0-1); Eosinophil# 0.09 X10^3/uL; Eosinophils% 0.9 % (0-5); Hematocrit 28.6 % (37-47); Hemoglobin 8.9 g/dL (12.0-15.0); Lymphocyte # 1.43 X10^3/ul (0.83-4.51); Lymphocyte % 14.2 % (19-41); Mean Corp Hgb Conc 31.1 g/dL (32-36); Mean Corpuscular Volume 64.3 fL (81-99); Mean Platelet Vol. 9.1 fl (6.2-12.0); Monocyte# 0.43 X10^3/uL; Monocyte% 4.3 % (0-10); NRBC Flagged by Analyzer 0 % (0-5); Neutrophil # 8.03 X10^3/uL (2.7-7.7); Platelet Count 401 K/mm3 (150-450); RBC Distribution Width CV 18.6 % (11.6-14.6); RBC Distribution Width SD 42.3 fl (35.1-43.9); Red Blood Count 4.45 M/mm3 (4.2-5.4)
[2024-09-17 13:43] LABS: Hemoglobin A1c 5.9 % (<=5.6)
[2024-09-17 13:50] LABS: Hepatitis B Surface Antigen Nonreactive (Nonreactive); Hepatitis C Antibody Nonreactive (Nonreactive); Rubella IgG REAC (Nonreactive); Syphilis Antibodies Nonreactive (Nonreactive)
[2024-09-17 14:00] LABS: HIV Nonreactive (Nonreactive)
[2024-09-17 14:16] LABS: AST(SGOT) 16 U/L (<=31); Alanine Aminotransfer ALT/SGPT 12 U/L (<=34); Albumin, Serum 3.6 g/dL (3.5-5.0); Alkaline Phosphatase 83 U/L (35-104); Anion Gap 14 (5-15); BUN 9 mg/dL (4-19); BUN/Creat Ratio 15.2 RATIO (10-20); Calcium,Total 8.8 mg/dL (7.6-11.0); Carbon Dioxide 18.2 mmol/L (21.0-32.0); Chloride 104 mmol/L (98-108); Creatinine, Serum 0.57 mg/dL (0.70-1.20); EST Glomerular Filtration Rate 126 (>60); Globulin 3.7 g/dL (2.2-4.2); Glucose 120 mg/dL (70-99); Potassium 3.6 mmol/L (3.3-5.1); Protein, Total 7.3 g/dL (5.9-8.4); Sodium Level 137 mmol/L (133-145); Total Bilirubin 0.16 mg/dL (0.00-1.30)
== END | disposition home or self-care (01) ==
PROVIDERS: Obstetrics & Gynecology; Referring Provider Advanced Practice Midwife; Visit Provider Advanced Practice Midwife
DX: O99.210 Obesity complicating pregnancy, unspecified trimester (principal); E66.9 Obesity, unspecified; Z3A.00 Weeks of gestation of pregnancy not specified
CPT/HCPCS: 36415; 80053; 83036; 85025; 86703; 86762; 86780; 86803; 86850; 86900; 86901; 87340

== ENCOUNTER 2024-10-01 13:22 | Outpatient (CLI) | payer MEDICAID, SELFPAY ==
[2024-10-01 13:39] VITALS: BP 130/64; PULSE 82; RESP 16; TEMP 36.2; O2SAT 100; BMI 41.7
[2024-10-01] MEDS: 0.9% NaCl Peripheral Flush Adult IV (13:50)
[2024-10-01] MEDS: 0.9% NaCl IVPB Med Flush (100mL) 15 ML IV (13:50)
[2024-10-01] MEDS: Iron Sucrose Complex 300 MG in 0.9% Normal Saline (250mL Bag) 250 ML 177 MG IV (13:51)
[2024-10-01 15:58] VITALS: BP 127/66; PULSE 83; RESP 16
== END 2024-10-01 23:59 | disposition home or self-care (01) ==
LOC: MEDOUTP 13:23
PROVIDERS: Referring Provider Obstetrics & Gynecology; Visit Provider Obstetrics & Gynecology
DX: D64.9 Anemia, unspecified (principal)
CPT/HCPCS: 96365; 96366; J1756; A4216

== ENCOUNTER 2024-10-07 10:32 | Outpatient (CLI) | payer MEDICAID, SELFPAY ==
[2024-10-07 10:42] VITALS: BP 118/62; PULSE 75; RESP 16; TEMP 35.9; O2SAT 100
[2024-10-07] MEDS: Iron Sucrose Complex (Venofer) 300 MG in 0.9% NaCl 250 ML 176.7 MG IV (11:22)
[2024-10-07 13:34] VITALS: BP 125/70; PULSE 84; RESP 16; TEMP 36.3; O2SAT 98
== END 2024-10-07 23:59 | disposition home or self-care (01) ==
LOC: MEDOUTP 10:33
PROVIDERS: Referring Provider Obstetrics & Gynecology; Visit Provider Obstetrics & Gynecology
DX: D64.9 Anemia, unspecified (principal)
CPT/HCPCS: 96365; 96366; J1756; A4216

== ENCOUNTER → 2025-01-04 | Outpatient (CLI) | payer MEDICAID, SELFPAY ==
[2025-01-04 10:18] LABS: Hematocrit 26.6 % (37-47); Hemoglobin 8.4 g/dL (12.0-15.0); Immature Granulocytes Count 0.080 X10^3/uL (0.0-0.0); Mean Corp Hgb Conc 31.6 g/dL (32-36); Mean Corpuscular Volume 74.9 fL (81-99); Mean Platelet Vol. 10.0 fl (6.2-12.0); NRBC Flagged by Analyzer 0 % (0-5); Platelet Count 266 K/mm3 (150-450); RBC Distribution Width CV 17.2 % (11.6-14.6); RBC Distribution Width SD 47.8 fl (35.1-43.9); Red Blood Count 3.55 M/mm3 (4.2-5.4); White Blood Count 9.5 K/mm3 (4.4-11.0)
[2025-01-04 12:02] LABS: Ferritin 6 ng/mL (22-378); Glucose Challenge Gest 1H 50g 210 mg/dL (70-140); HIV Nonreactive (Nonreactive); Iron 23 ug/dL (50-170); Iron Binding Capacity,Unsat 491 ug/dL (228-428); Syphilis Antibodies Nonreactive (Nonreactive)
[2025-01-04 12:03] LABS: Iron Binding Capacity,Total 514 ug/dL (250-450)
== END | disposition home or self-care (01) ==
PROVIDERS: Obstetrics & Gynecology; Referring Provider Advanced Practice Midwife; Visit Provider Advanced Practice Midwife
DX: O99.019 Anemia complicating pregnancy, unspecified trimester (principal); Z13.1 Encounter for screening for diabetes mellitus; D64.9 Anemia, unspecified; Z3A.00 Weeks of gestation of pregnancy not specified
CPT/HCPCS: 36415; 82728; 82950; 83540; 83550; 85025; 86703; 86780

== ENCOUNTER 2025-01-11 14:07 | Outpatient (CLI) | payer MEDICAID, SELFPAY ==
[2025-01-11] VITALS (17 sets, daily range): BP systolic 119; BP diastolic 70; PULSE 88–105; TEMP 36.9; O2SAT 94–98; BMI 43.1
[2025-01-11 14:54] LABS: Color, Urine Yellow (Yellow); Glucose, Dipstick Normal (Normal); Ketone-Dipstick 5 mg/dl (Negative); Leukocyte Esterase-Dipstick 500 /ul (Negative); Nitrite-Dipstick Negative (Negative); Occult Blood-Urine 10 /ul (Negative); Protein-Dipstick 30 mg/dl (Negative); Specific Gravity, Urine 1.025 (1.002-1.030); Urine Bilirubin Dipstick Negative (Negative)
--- NOTE | 2025-01-11 15:35 | OB.TRI.PN_ITS ---
Progress Notes Date of Service: 01/11/25 Progress Note: Patient presents for triage evaluation secondary to low back pain FHT: 140 Moderate variability reactive no decelerations category I tracing [place]: no regular Contractions Assessment and plan: 29 weeks uti Reactive NST, reassuring maternal and status patient discharged to home to follow-up as scheduled. See problem list details for additional plan information. Laboratory Studies: Laboratory Tests 01/11/25 Range/Units 14:40 Urine Color Yellow (Yellow) Urine Clarity Sl. Cloudy (Clear) Urine pH 6.0 (5.0 - 8.0) Ur Specific [place] 1.025 (1.002-1.030) Urine Protein 30 H (Negative) mg/dl Urine Glucose (UA) Normal (Normal) mg/dl Urine Ketones 5 H (Negative) mg/dl Urine Occult Blood 10 H (Negative) /ul Urine Nitrite Negative (Negative) Urine Bilirubin Negative (Negative) mg/dL Urine Urobilinogen Normal (Normal) mg/dl Ur Leukocyte Esterase 500 H (Negative) /ul Charges/Coding Procedures Urinary/Genital [id number]: [id number] non-stress test Interp
== END 2025-01-11 16:05 | disposition home or self-care (01) ==
LOC: WPOUT 14:09 → WP 14:09
PROVIDERS: Referring Provider Obstetrics & Gynecology; Visit Provider Obstetrics & Gynecology
DX: O26.893 Other specified pregnancy related conditions, third trimester (principal); M54.50 Low back pain, unspecified; Z3A.29 29 weeks gestation of pregnancy
CPT/HCPCS: 59025; 59050; 81002; 87086; 87088; 99221; G0378

== ENCOUNTER 2025-01-21 08:52 | Outpatient (CLI) | payer MEDICAID, SELFPAY ==
[2025-01-21 09:00] VITALS: BP 127/72; PULSE 83; RESP 16; TEMP 36.1; O2SAT 97; BMI 43.5
[2025-01-21] MEDS: 0.9% NaCl Peripheral Flush Adult IV (09:11)
[2025-01-21] MEDS: 0.9% NaCl IVPB Med Flush (100mL) 15 ML IV (09:11)
[2025-01-21] MEDS: Iron Sucrose Complex 300 MG in 0.9% Normal Saline (250mL Bag) 250 ML 177 MG IV (09:42)
[2025-01-21 11:44] VITALS: BP 121/73; PULSE 88
== END 2025-01-21 23:59 | disposition home or self-care (01) ==
LOC: MEDOUTP 08:53
PROVIDERS: Referring Provider Obstetrics & Gynecology; Visit Provider Obstetrics & Gynecology
DX: D64.9 Anemia, unspecified (principal)
CPT/HCPCS: 96365; 96366; J1756; A4216

== ENCOUNTER → 2025-02-02 | Outpatient (CLI) | payer MEDICAID, SELFPAY ==
--- NOTE | 2025-02-02 12:22 | US_ITS ---
PROCEDURE: OB LIMITED WITH BIOMETRICS 02/02/2025 REASON FOR EXAM: GROWTH WITH BPP TECHNIQUE: OB LIMITED WITH BIOMETRICS COMPARISON: None FINDINGS Number: 1 Position: Vertex Placental Position: Anterior and not low-lying Placental Abnormalities: No evidence of previa. DIMENSIONS: Biparietal Diameter: 8.7 cm: 35 weeks and 0 days: 98 percentile/ Head Circumference: 29.9 cm: 33 weeks and 1 day: 43rd percentile/ Abdominal Circumference: 32.2 cm: 36 weeks and 1 day: 100 percentile/ Femur Length: 6.1 cm: 31 weeks and 4 days: 24 percentile/ ESTIMATED WEIGHT: 2516 g plus/-377 g ESTIMATED WEIGHT PERCENTILE (24+ weeks): 99 percentile ESTIMATED GESTATIONAL AGE: Baseline: 32 weeks and 0 days By Ultrasound: 33 weeks and 4 days ESTIMATED DATE OF DELIVERY: Baseline: March 30, 2025 By Ultrasound: March 19, 2025 BIOPHYSICAL ASSESSMENT: Amniotic Fluid Volume: 5.4 cm Amniotic Fluid Index: 18.6 cm (8-24 cm normal range) Cardiac Motion: 138 beats per minute (average) Trunk and Limb Motion: Present. MATERNAL ANATOMY: Adnexa: Neither maternal ovary is successfully identified. US/OB Limited With Biometrics IMPRESSION: Single live intrauterine gestation with a mean gestational age of 33 weeks and 4 days. Reading Location: [id number]
--- NOTE | 2025-02-02 12:24 | US_ITS ---
PROCEDURE: OB BIOPHYSICAL PROF W/O NST 02/02/2025 REASON FOR EXAM: WELL BEING TECHNIQUE: OB BIOPHYSICAL PROF W/O NST COMPARISON: Prior study dated February 02, 2025. FINDINGS LMP: June 23, 2024. Number: 1 Position: Vertex Placental Position: Anterior and not low-lying Placental Abnormalities: No evidence of previa. ESTIMATED GESTATIONAL AGE: Baseline: 32 weeks and 0 days ESTIMATED DATE OF DELIVERY: Baseline: March 30, 2025 BIOPHYSICAL ASSESSMENT: Amniotic Fluid Volume: 4.3 cm Amniotic Fluid Index: 16.7 cm (8-24 cm normal range) Cardiac Motion: (average) Trunk and Limb Motion: Present. MATERNAL ANATOMY: Adnexa: Neither maternal ovary is successfully identified. Biophysical profile: Breathing movements: 2 Gross body movements: 2 tone: 2 Amniotic fluid volume: 2 Total score: 8/8 US/OB Biophysical Prof W/O NST IMPRESSION: Normal biophysical profile. Reading Location: [facility]
== END | disposition home or self-care (01) ==
LOC: US 12:18
PROVIDERS: Referring Provider Obstetrics & Gynecology; Visit Provider Obstetrics & Gynecology
DX: O24.419 Gestational diabetes mellitus in pregnancy, unspecified control (principal); Z3A.32 32 weeks gestation of pregnancy
CPT/HCPCS: 76816; 76819

== ENCOUNTER → 2025-02-09 | Outpatient (CLI) | payer MEDICAID, SELFPAY ==
--- NOTE | 2025-02-09 07:58 | US_ITS ---
PROCEDURE: OB BIOPHYSICAL PROF W/O NST 02/09/2025 REASON FOR EXAM: WELL BEING TECHNIQUE: OB BIOPHYSICAL PROF W/O NST COMPARISON: Prior study dated February 02, 2025. FINDINGS Number: 1 Position: Vertex Placental Position: Anterior and not low-lying. Placental Abnormalities: No evidence of previa. ESTIMATED GESTATIONAL AGE: Baseline: 33 weeks ESTIMATED DATE OF DELIVERY: Baseline: March 30, 2025. BIOPHYSICAL ASSESSMENT: Amniotic Fluid Volume: 7.2 cm x 9.6 cm Amniotic Fluid Index: 22.5 (8-24 cm normal range) Cardiac Motion: 139 beats per minute (average) Trunk and Limb Motion: Present. MATERNAL ANATOMY: Adnexa: Neither maternal ovary is successfully identified. Biophysical profile: Breathing movements: 2 Gross body movements: 2 tone: 2 Amniotic fluid volume: 2 Total score: 8/8 US/OB Biophysical Prof W/O NST IMPRESSION: Normal biophysical profile. Reading Location: [place] [id number]
== END | disposition home or self-care (01) ==
LOC: OPUS 07:57
PROVIDERS: Referring Provider Obstetrics & Gynecology; Visit Provider Obstetrics & Gynecology
DX: O24.419 Gestational diabetes mellitus in pregnancy, unspecified control (principal); Z3A.32 32 weeks gestation of pregnancy
CPT/HCPCS: 76819

== ENCOUNTER → 2025-02-16 | Outpatient (CLI) | payer MEDICAID, SELFPAY ==
--- NOTE | 2025-02-16 13:32 | US_ITS ---
PROCEDURE: OB BIOPHYSICAL PROF W/O NST 02/16/2025 REASON FOR EXAM: WELL BEING TECHNIQUE: OB BIOPHYSICAL PROF W/O NST COMPARISON: Prior study dated February 09, 2025. FINDINGS Number: 1 Position: Vertex Placental Position: Anterior and not low-lying Placental Abnormalities: No evidence of previa. ESTIMATED GESTATIONAL AGE: Baseline: 34 weeks and 0 days ESTIMATED DATE OF DELIVERY: Baseline: March 30, 2025 BIOPHYSICAL ASSESSMENT: Amniotic Fluid Volume: 6.3 cm Amniotic Fluid Index: 19.3 cm (8-24 cm normal range) Cardiac Motion: 143 beats per minute (average) Trunk and Limb Motion: Present. MATERNAL ANATOMY: Adnexa: Neither maternal ovary is successfully identified. Biophysical profile: Breathing movements: 2 Gross body movements: 2 tone: 2 Amniotic fluid volume: 2 Total score: 8/8 US/OB Biophysical Prof W/O NST IMPRESSION: Normal biophysical profile score of 8/8 Reading Location: [id number]
== END | disposition home or self-care (01) ==
PROVIDERS: Obstetrics & Gynecology; Referring Provider Obstetrics & Gynecology; Visit Provider Obstetrics & Gynecology
DX: O24.419 Gestational diabetes mellitus in pregnancy, unspecified control (principal); Z3A.33 33 weeks gestation of pregnancy
CPT/HCPCS: 76819

== ENCOUNTER → 2025-02-19 | Outpatient (CLI) | payer MEDICAID, SELFPAY ==
[2025-02-19 12:50] LABS: Hematocrit 25.5 % (37-47); Hemoglobin 8.0 g/dL (12.0-15.0); Immature Granulocytes Count 0.070 X10^3/uL (0.0-0.0); Mean Corp Hgb Conc 31.4 g/dL (32-36); Mean Corpuscular Volume 72.9 fL (81-99); Mean Platelet Vol. 10.8 fl (6.2-12.0); NRBC Flagged by Analyzer 0.3 % (0-5); Platelet Count 205 K/mm3 (150-450); RBC Distribution Width CV 16.4 % (11.6-14.6); RBC Distribution Width SD 42.6 fl (35.1-43.9); Red Blood Count 3.50 M/mm3 (4.2-5.4); White Blood Count 6.7 K/mm3 (4.4-11.0)
[2025-02-19 13:05] LABS: AST(SGOT) 16 U/L (<=31); Alanine Aminotransfer ALT/SGPT 11 U/L (<=34); Albumin, Serum 3.0 g/dL (3.5-5.0); Alkaline Phosphatase 131 U/L (35-104); Anion Gap 14 (5-15); BUN 4 mg/dL (4-19); BUN/Creat Ratio 6.3 RATIO (10-20); Calcium,Total 9.0 mg/dL (7.6-11.0); Carbon Dioxide 20.4 mmol/L (21.0-32.0); Chloride 102 mmol/L (98-108); Globulin 3.2 g/dL (2.2-4.2); Glucose 179 mg/dL (70-99); Potassium 3.4 mmol/L (3.3-5.1)
== END | disposition home or self-care (01) ==
LOC: BWCLAB 11:02
PROVIDERS: Referring Provider Obstetrics & Gynecology; Visit Provider Obstetrics & Gynecology
DX: O99.713 Diseases of the skin and subcutaneous tissue complicating pregnancy, third trimester (principal); L29.9 Pruritus, unspecified; O24.419 Gestational diabetes mellitus in pregnancy, unspecified control; O99.012 Anemia complicating pregnancy, second trimester; Z3A.00 Weeks of gestation of pregnancy not specified; D64.9 Anemia, unspecified
CPT/HCPCS: 36415; 80053; 85025

== ENCOUNTER → 2025-02-23 | Outpatient (CLI) | payer MEDICAID, SELFPAY ==
--- NOTE | 2025-02-23 08:52 | US_ITS ---
PROCEDURE: OB BIOPHYSICAL PROF W/O NST 02/23/2025 REASON FOR EXAM: WELL BEING TECHNIQUE: OB BIOPHYSICAL PROF W/O NST COMPARISON: Prior study dated February 16, 2025. FINDINGS Number: 1 Position: Vertex Placental Position: Anterior and not low-lying. Placental Abnormalities: No evidence of previa. ESTIMATED GESTATIONAL AGE: Baseline: 35 weeks and 0 days ESTIMATED DATE OF DELIVERY: Baseline: March 30, 2025 BIOPHYSICAL ASSESSMENT: Amniotic Fluid Volume: 12.9 cm Amniotic Fluid Index: 26.8 cm (8-24 cm normal range) Cardiac Motion: 144 beats per minute (average) Trunk and Limb Motion: Present. MATERNAL ANATOMY: Adnexa: Neither maternal ovary is successfully identified. Biophysical profile: Breathing movements: 2 Gross body movements: 2 tone: 2 Amniotic fluid volume: 2 Total score: 8/8 US/OB Biophysical Prof W/O NST IMPRESSION: Normal biophysical profile score. Reading Location: [facility]
== END | disposition home or self-care (01) ==
PROVIDERS: Referring Provider Obstetrics & Gynecology; Visit Provider Obstetrics & Gynecology
DX: O24.419 Gestational diabetes mellitus in pregnancy, unspecified control (principal); Z3A.00 Weeks of gestation of pregnancy not specified
CPT/HCPCS: 76819

== ENCOUNTER → 2025-02-26 | Outpatient (CLI) | payer MEDICAID, SELFPAY ==
[2025-02-26 10:10] LABS: Hematocrit 26.0 % (37-47); Hemoglobin 8.2 g/dL (12.0-15.0); Immature Granulocytes Count 0.070 X10^3/uL (0.0-0.0); Mean Corp Hgb Conc 31.5 g/dL (32-36); Mean Corpuscular Volume 72.0 fL (81-99); Mean Platelet Vol. 10.1 fl (6.2-12.0); NRBC Flagged by Analyzer 0 % (0-5); Platelet Count 197 K/mm3 (150-450); RBC Distribution Width CV 16.0 % (11.6-14.6); RBC Distribution Width SD 41.0 fl (35.1-43.9); Red Blood Count 3.61 M/mm3 (4.2-5.4); White Blood Count 6.3 K/mm3 (4.4-11.0)
[2025-02-26 10:28] LABS: AST(SGOT) 14 U/L (<=31); Alanine Aminotransfer ALT/SGPT 8 U/L (<=34); Albumin, Serum 3.0 g/dL (3.5-5.0); Alkaline Phosphatase 136 U/L (35-104); Anion Gap 10 (5-15); BUN 5 mg/dL (4-19); BUN/Creat Ratio 9.5 RATIO (10-20); Calcium,Total 9.1 mg/dL (7.6-11.0); Carbon Dioxide 20.9 mmol/L (21.0-32.0); Chloride 103 mmol/L (98-108); Globulin 3.4 g/dL (2.2-4.2); Glucose 145 mg/dL (70-99); Potassium 3.7 mmol/L (3.3-5.1)
[2025-02-26 10:35] LABS: Creatinine, Urine (random) 108.00 mg/dL (28.00-217.00); Protein, Urine (Random) 23.7 mg/dL (0.0-12.0); Protein:Creat Ratio 219 mg/g CRE (0-200)
[2025-02-26 10:59] LABS: Ferritin 10 ng/mL (22-378); Iron 27 ug/dL (50-170); Iron Binding Capacity,Unsat 664 ug/dL (228-428); Vitamin B12 160 pg/mL (180-914)
[2025-02-26 11:06] LABS: Iron Binding Capacity,Total 691 ug/dL (250-450)
== END | disposition home or self-care (01) ==
LOC: BWCLAB 09:56
PROVIDERS: Obstetrics & Gynecology; Referring Provider Advanced Practice Midwife; Visit Provider Advanced Practice Midwife
DX: O26.899 Other specified pregnancy related conditions, unspecified trimester (principal); R51.9 Headache, unspecified; Z3A.00 Weeks of gestation of pregnancy not specified; O99.012 Anemia complicating pregnancy, second trimester
CPT/HCPCS: 36415; 80053; 82570; 82607; 82728; 83540; 83550; 84156; 85025

== ENCOUNTER 2025-03-03 13:35 | Outpatient (CLI) | payer SELFPAY ==
[2025-03-03 14:07] VITALS: BMI 46.3
[2025-03-03 14:10] VITALS: RESP 16; TEMP 36.9
[2025-03-03 14:17] VITALS: BP 124/79; PULSE 103
[2025-03-03 15:00] LABS: ROM Internal Control Test YES-OK TO RESULT pt. (Internal QC); ROM Patient Test Negative (Negative); Record Kit Lot#, ROM+ K3358
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
== END 2025-03-03 15:15 | disposition home or self-care (01) ==
LOC: WPOUT 13:39 → WP 13:40
PROVIDERS: Referring Provider Obstetrics & Gynecology; Visit Provider Obstetrics & Gynecology
DX: O47.03 False labor before 37 completed weeks of gestation, third trimester (principal); O34.219 Maternal care for unspecified type scar from previous cesarean delivery; O99.333 Smoking (tobacco) complicating pregnancy, third trimester; F17.290 Nicotine dependence, other tobacco product, uncomplicated; Z3A.36 36 weeks gestation of pregnancy; Z86.32 Personal history of gestational diabetes
CPT/HCPCS: 59025; 59050; 84112; 99221; G0378

== ENCOUNTER 2025-03-12 11:40 | Inpatient (IN) | payer MEDICAID, SELFPAY ==
[2025-03-12] VITALS (28 sets, daily range): BP systolic 114–176; BP diastolic 68–98; PULSE 63–95; RESP 14–20; TEMP 36.2–37; O2SAT 95–98; BMI 48.1
[2025-03-12] MEDS: Lactated Ringers 1,000 ML 999 ML IV ×2 (12:44→22:15)
[2025-03-12 13:03] LABS: Hematocrit 26.0 % (37-47); Hemoglobin 7.9 g/dL (12.0-15.0); Immature Granulocytes Count 0.120 X10^3/uL (0.0-0.0); Mean Corp Hgb Conc 30.4 g/dL (32-36); Mean Corpuscular Volume 69.9 fL (81-99); Mean Platelet Vol. 11.0 fl (6.2-12.0); NRBC Flagged by Analyzer 0 % (0-5); Platelet Count 188 K/mm3 (150-450); RBC Distribution Width CV 16.8 % (11.6-14.6); RBC Distribution Width SD 42.2 fl (35.1-43.9); Red Blood Count 3.72 M/mm3 (4.2-5.4); White Blood Count 6.1 K/mm3 (4.4-11.0)
[2025-03-12 13:50] LABS: Creatinine, Urine (random) 63.80 mg/dL (28.00-217.00); Protein, Urine (Random) 17.9 mg/dL (0.0-12.0); Protein:Creat Ratio 281 mg/g CRE (0-200)
[2025-03-12] MEDS: Lactated Ringers 1,000 ML 150 ML IV (13:50)
[2025-03-12 14:04] LABS: AST(SGOT) 23 U/L (<=31); Uric Acid 7.1 mg/dL (2.6-6.0)
[2025-03-12 14:11] LABS: Alanine Aminotransfer ALT/SGPT 12 U/L (<=34); Estimated Creatinine Clearance 153.04 ml/min (50-250); Syphilis Antibodies Nonreactive (Nonreactive)
[2025-03-12 15:01] LABS: Barbiturate Urine NEGATIVE (< 200 ng/mL); Benzodiazepine Urine NEGATIVE (< 200 ng/mL); PCP Urine NEGATIVE (< 25 ng/mL); THC Urine NEGATIVE (< 50 ng/mL)
--- NOTE | 2025-03-12 15:21 | PCM.PRE.AN2 ---
ASA Classification* ASA Classification ASA Classification: 3 Assessment & Plan Anesthesia* Anesthesia Assessment Anesthesia Assessment: Discussed sedation and/or anesthesia options, risks, benefits, and alternatives with patient/parents/legal guardian/POA. Questions invited. The patient/parents/legal guardian/POA seems to understand and agrees to proceed with anesthesia plan. Reviewed the physical assessment, medical history, allergy history and patient home medications list prior to surgery/procedure/anesthetic and documented any changes. Performed airway and anesthesia risk assessments. Anesthesia Type Anesthesia Type: Spinal History Source History Obtained from:: Patient and Chart Anesthesia Focused Assessment* Temperature: 97.1 F Pulse Rate: 86 Blood Pressure: 147/87 Respiratory Rate: 18 Pulse Ox: 97 Oxygen Delivery Method: Room Air Airway Assessment Mouth opens: 2 cm Mallampati Score: III Teeth Condition: Intact and Chipped/Broken (small chips wearing throughout none loose) Neck Range of motion (ROM): Full ROM Labs Anesthesia Preop lab: CBC WBC 6.1 K/mm3 (4.4-11.0) 03/12/25 12:40 03/12/25 RBC 3.72 M/mm3 (4.2-5.4) L 03/12/25 12:40 03/12/25 Hgb 7.9 g/dL (12.0-15.0) L 03/12/25 12:40 03/12/25 Hct 26.0 % (37-47) L 03/12/25 12:40 03/12/25 Plt Count 188 K/mm3 (150-450) 03/12/25 12:40 03/12/25 CHEMISTRY Potassium 3.7 mmol/L (3.3-5.1) 02/26/25 09:58 02/26/25 Sodium 134 mmol/L (133-145) 02/26/25 09:58 02/26/25 BUN 5 mg/dL (4-19) 02/26/25 09:58 02/26/25 Creatinine 0.66 mg/dL (0.70-1.20) L 03/12/25 12:40 03/12/25 Glucose 145 mg/dL (70-99) H 02/26/25 09:58 02/26/25 POC Glucose 81 mg/dL (74-106) 03/12/25 14:13 03/12/25 TSH 1.47 uIU/mL (0.358-3.74) 10/18/23 11:55 10/18/23 COAG PT 13.3 SECONDS (11.7-14.9) 07/26/17 11:23 07/26/17 HCG, Quant 4688 mIU/mL (1-3) H 07/30/24 16:02 07/30/24 Urine Test Positive Negative H 04/03/24 11:55 04/03/24 Pre-Assessment Diagnosis/Proposed Procedure Planned Operative Procedure(s): repeat c/s Anesthesia History 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 When Was Last Pacemaker Check QUESTION #4 FULL TEXT: You/Your Family Experience fever (hyperthermia) with Anesthesia Any additional information?: Yes Hx Hospitalization: No Any Problems With Anesthesia: Yes (nausea) Cholinesterase deficiency: No You/your family experience fever (hyperthermia) with anesthesia: No Recent Exposure to Contagious Disease: No Does patient have nerve stimulator: No Patient instructed to have device shut off: No --Does patient have Pacemaker or ICD?: No Last Oral Intake Last Oral intake: Last Oral Intake NPO since 18:30 03/12/25 14:11 Meds taken in AM with sips of water? Meds patient instructed to take am of surgery PONV PONV - welding equipment sales representative: PONV - welding equipment sales representative Female y HX of Motion Sickness n HX of N/V After Surgery y Non-Smoker n Duration of Surgery greater y than 60 minutes Number of Risk Factors 3 PONV Score Any additional information?: No Height & Weight Height & Weight: Anesthesia: Height & Weight Height 5 ft 2 in 03/12/25 11:58 Weight: 119.295 kg 03/12/25 11:58 Body Mass Index (BMI) 48.1 03/12/25 11:58 Respiratory Assessment Respiratory Assessment - welding equipment sales representative: Respiratory Tract Infection Hx - welding equipment sales representative Hx Respiratory Tract Infection No 01/15/23 10:50 Any additional information?: No STOP Sleep Apnea STOP Sleep Apnea - welding equipment sales representative: STOP Sleep Apnea - welding equipment sales representative Hx Hypertension Yes: with 01/21/25 09:00 Hx Sleep Apnea No 01/17/23 07:50 CPAP no BIPAP no Do you snore loudly (louder yes than talking or can be heard Do you often feel tired/ fatigued/ sleepy during no daytime? Has anyone observed you stop breathing during sleep? no STOP Results QUESTION #5 FULL TEXT : Do you snore loudly (louder than talking or can be heard through closed doors)? 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 equipment sales representative Tobacco Use Non-smoker 08/08/21 09:44 Smoking Status Former smoker 03/12/25 14:40 Hx Tobacco Use Yes 03/12/25 14:40 Years Smoking 2 03/12/25 14:40 Packs Smoked per Day Smoking Cessation Date was Yes - quit smoking within 15 03/12/25 14:40 within the last 15 years years Hx Smoking Cessation Date 11/29/24 03/12/25 14:40 Hx Smoking Cessation No 03/12/25 14:40 Counseling Any additional information?: Yes Tobacco Use: - (marijuana) Hematologic Medial History Hematologic Hx - welding equipment sales representative: 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 Specify any problems Hx of Preganancy in last 3 Months Nurse Filling Out Transfusion & Questions: Date: Time: Patient unable to answer at this time (ie. confused, unrespo Any additional information?: Yes Hx of Blood Transfusion: No Hx of Transfusion in last 3 Months: No Ever experience any problems with transfusion(s)?: No Hx of Preganancy in last 3 Months: Yes /Reproduction History /Reproductive History - welding equipment sales representative: /Reproductive Hx- welding equipment sales representative Hx Now Yes 03/12/25 14:40 Gestational Age (in weeks): 37 03/12/25 14:40 EDC: 03/30/25 03/12/25 14:40 Hx 4 03/12/25 14:40 Hx Para 2 03/12/25 14:40 Hx Section SAB 1 03/12/25 14:40 No 03/12/25 14:40 Any additional information?: No Active Medications Active Medications: Current Medications Generic Name Dose Route Start Last Admin Trade Name Freq PRN Reason Stop Dose Admin Lactated Ringer's 1,000 mls @ 150 mls/hr 03/12/25 12:00 03/12/25 13:50 IV 150 mls/hr .Q6H40M KEYLA Administration Sodium Chloride 5 - 15 ml 03/12/25 11:59 0.9% Saline Lock 10 Ml Syringe IV PRN PRN SALINE FLUSH PFS Medical History History of gestational diabetes mellitus (GDM) in prior , currently Infertility Missed History of gestational diabetes in prior , currently H/O pre-eclampsia in prior , currently Supervision of high-risk Drug use affecting Preventative health care Upper respiratory infection, viral Encounter to establish care Pelvic pain Nausea & vomiting Amenorrhea Wears glasses Anxiety Marijuana use Low iron Restless legs Asthma Shortness of breath on exertion Infected dental caries ADD (attention deficit disorder) Elevated d-dimer Internal derangement of left shoulder Cholelithiasis Home Medications ?Medication ?Instructions ?Recorded ?Last Taken ?Type albuterol sulfate 90 mcg/actuation 2 inh inhalation Q4-6H PRN 10/18/23 Unknown Rx breath activated powder inhaler shortness of breath or wheezing #1 ea PNV 153-FA 400 mcg-om3 35 mg-dha 1 tab PO DAILY 08/11/24 01/11/25 08:00 History 25 mg-epa 5 mg-fish oil chew tablet 1 TAB famotidine 20 mg tablet (Pepcid) 20 mg PO BID nausea #60 tabs 12/09/24 01/11/25 08:00 Rx 20 mg alcohol swabs (Alcohol Wipes) 1 pad topical DAILY GDM #100 ea 01/04/25 Unknown Rx blood sugar diagnostic (Blood #50 ea 01/04/25 Unknown Rx Glucose Test strips) blood-glucose meter #1 ea 01/04/25 Unknown Rx lancets #200 ea 01/04/25 Unknown Rx insulin syringes (disposable) 1 mL #100 ea 01/19/25 Unknown Rx insulin NPH isoph U-100 human 100 22 unit subcut QHS GDM 03/12/25 Unknown History unit/mL subcutaneous suspension (Novolin N NPH U-100 Insulin isophane) Allergy/AdvReac Type Severity Reaction Status Date / Time No Known Allergies Allergy Verified 03/12/25 13:07 Family History Aunt Breast cancer, Onset Age: 50 Grandfather Diabetes Grandmother Diabetes Surgical History History of delivery, currently Hx laparoscopic cholecystectomy History of History of tonsillectomy Social History adopted: No household members: spouse and children number of children: 2 current occupational status: unemployed current occupation: [employer] current occupational exposures/hazards: No pets and animals: Yes ( taking care litter box ) pets and animals: cat(s) and dog(s) history of recent travel: Yes ([place]) out of state: Yes out of country: No sexually active: Yes Smoking Status: Former smoker Smokeless tobacco user: other Electronic Cigarette Use: with nicotine quit status: considering quitting alcohol intake: current alcohol intake frequency: holidays/special occasions only details: Not while substance use type: marijuana well-balanced diet: daily or most days caffeine: Yes Type: tea Number of servings: 1 eating out: 1-3 times/week during the past year weight has: remained stable what type of physical activity do you participate in: none abdoul/taoist: None seatbelt use: always do you feel safe at home: Yes 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 Physical Exam Const alert and oriented x3 Orientation / Consciousness: awake Nutritional Appearance: morbidly obese HEENT dentition normal Face and Sinus: TMJ findings Teeth and Gingiva: caries Neck General: trachea midline Resp normal respiratory effort, normal air movement and clear to auscultation bilaterally Resp Narrative: asthma has not used albuterol recently Auscultation: clear to auscultation bilaterally Cardio regular rate, regular rhythm and no murmurs Back/Spine normal ROM Extremity full ROM Skin Rashes: no rashes Neuro oriented x3 and moves all extremities Motor Exam: muscle tone normal throughout
[2025-03-12] MEDS: Cefazolin 1 GM/5 ML Vial 2 GM IV (15:36)
[2025-03-12] MEDS: TRANEXAMIC ACID 1,000 MG/10 ML ML 1000 MG IV (15:55)
[2025-03-12] MEDS: OXYTOCIN IV (16:17)
[2025-03-12] MEDS: SODIUM CHLORIDE IV (16:17)
[2025-03-12] MEDS: fentaNYL 100 MCG/2 ML Ampul 90 MCG IV (16:25)
[2025-03-12] MEDS: DiphenhydrAMINE 50 MG/ML Syringe IV (17:15)
--- NOTE | 2025-03-12 17:41 | PCM.POST.ANE ---
Anesthesia: Postop Eval I Current Vital Signs Temperature: 97.7 F Pulse Rate: 71 Blood Pressure: 136/79 Respiratory Rate: 20 Pulse Ox: 97 Oxygen Delivery Method: Room Air Assessment Airway patent: Yes Spontaneous unlabored respirations: Yes Mental status: Awake and Calm nausea: No Vomiting: No Anesthesia Complication: No Fluid Hydration Crystalloid volume administer (ml): 1,150 Blood Product volume administered (ml): 250 Total IV fluid infused: 1,400 Progress Note Anesthesia document: Postop Eval 1 completed: Yes
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
[2025-03-12] MEDS: Oxytocin 15 Units/NS 250ml 15 UNITS/250 ML IV.SOLN 83 UNITS IV (17:50)
--- NOTE | 2025-03-12 17:50 | OP.PCM_ITS ---
Assessment & Plan (1) Sterilization: COMMENT: title 19 01/19/25 c/section is 03/23. (2) Gestational diabetes mellitus (GDM) affecting , antepartum: COMMENT: testing QID, nutrition consult. NPH at night. 2x weekly bpps 32 weeks. growth us q 4 weeks. Growth US at 36 wk. Plans R CS at 39 wk (3) Anemia affecting : QUALIFIERS: Trimester: second trimester Qualified Code(s): O99.012 - Anemia complicating , second trimester COMMENT: Ferritin, Iron Binding studies, Venofer infusions (4) History of miscarriage, currently : COMMENT: 03/2024 missed . (5) Hx of section: COMMENT: Pt wants to if spont labor (6) Supervision of high-risk : QUALIFIERS: Trimester: second trimester Qualified Code(s): O09.92 - Supervision of high risk , unspecified, second trimester COMMENT: PRR , NICOLE 03/30/25,girl tyree (named by oldest son), PC Abdirahman Vogt, Gunnar (7) : QUALIFIERS: Weeks of gestation: 37 weeks Qualified Code(s): Z3A.37 - 37 weeks gestation of COMMENT: NIPT low risk, FOB sister with Down Syndrome, nl anatomy (8) Marijuana use during : COMMENT: every HS, counseling provided, recommended cessation, informed of initial and random tox screens; Quit (9) Current smoker: COMMENT: smoking in education provided, pt considering quitting, recommended cessation Vaping daily. (10) Hx of pre-eclampsia in prior , currently : COMMENT: 1st only (11) Obesity affecting : QUALIFIERS: Obesity type affecting : unspecified obesity Trimester: second trimester Qualified Code(s): O99.212 - Obesity complicating , second trimester COMMENT: BMI 41, [id number]-4p weekly bpps due to diabetes (12) Anxiety: COMMENT: stopped taking buspar, encouraged counseling. (13) ADD (attention deficit disorder): (14) Iron deficiency anemia: QUALIFIERS: Iron deficiency anemia type: unspecified iron deficiency Qualified Code(s): D50.9 - Iron deficiency anemia, unspecified COMMENT: EGD 01/17/2023-esophagitis, Bean's gland hyperplasia Has not tolerated oral iron in the past IV iron during (15) delivery delivered: COMMENT: RLTCS girl Taniya 37 ghtn diabetes 10lb 15 ounces anemia Maternal Data Information NICOLE Calculator Estimated Delivery Date Method Current WG Current Estimate 03/30/25 Ultrasound #1 37w 4d Other Estimates 04/01/25 Ultrasound #2 37w 2d Final NICOLE Source: LMP Operative Report (OB) Procedure Details Date of Procedure: 03/12/25 Procedure Start Time: 15:59 Pre-Operative Diagnosis: Other Other Pre-Operative diagnosis: see a/p comments Post-Operative Diagnosis: Same as Pre-operative diagnosis Classification: Scheduled Type of Anesthesia: Epidural Special Medications: none Antibiotic Given: Ancef 2 grams IV x1 Drain: Carrillo to straight drain Estimated Blood Loss: 800 Fluids Replaced: crystalloid, 4.5 l amniotic fluid loss Findings Description of surgery: Spinal anesthesia was placed without difficulty. Carrillo catheter was placed. The patient was placed in the dorsal supine position with leftward tilt. Patient was prepped and draped in the normal sterile fashion. Pfannenstiel skin incision was made with the scalpel and carried through to the underlying layer of fascia with the scalpel. Fascia was nicked in the midline and the incision extended laterally. The rectus bellies were dissected off superiorly and inferiorly with out complication both sharply and bluntly. significant scar tissue was taken down. The peritoneum was entered sharpley and omental adhesions taken down. The incision was stretched and a low transverse uterine incision was made with the scalpel. The infant's head was delivered atraumatically followed by the anterior and posterior shoulders without complication the rest of the infant delivered. The cord was clamped and cut and the was handed off to awaiting nurse. The placenta was delivered spontaneously immediately following and was noted to be intact and have a three- vessel cord. The uterus was exteriorized cleared of all clots and debris, and the incision was closed in a single layer closure using #1 Monocryl. hemoblast applied The ovaries and fallopian tubes were noted to be within normal limits with some scarring on the right side taken down. Patient had desired sterilization and was counseled preoperatively regarding irreversibility and permanency. Therefore bilateral fallopian tubes were elevated and transected across using a LigaSure device starting proximally to distally without complication the entire fallopian tubes were removed. The uterus was returned to the maternal abdomen and gutters were cleared of all clots and debris. The peritoneum was closed with 3-0 Monocryl in a running fashion. Gloves were changed prior to fascial closure. Fascia was closed with 0 PDS in a running fashion. Subcutaneous tissue was copiously irrigated and the skin was closed with 3-0 Monocryl in a subcuticular fashion. Mepilex dressing was applied without complication. Patient was taken to recovery in stable condition. Surgical findings: nl uterus tubes ovaries scarring right tube, 4.5 l amniotic fluid large fetus Presentation: Vertex Amniotic Membrane Rupture Type: Artificial Amniotic Fluid Description: Clear Placental Delivery Description: Spontaneous Specimen collected: Yes Description of specimen(s) removed: placenta and baby Cord Vessel Description: 3 Vessels Delayed Cord Clamping: Yes Fresh Work Wrapper Layer devops solutions architect: Yes Pharmacy Picking Technician: Saroj Kimble Tasks completed by historian research assistant: Opening & closing, Retracting and Other (assisting in delivery of the ) Additional psychiatric technician assistant?: No Complications Complications: No Admit VTE Documentation VTE Present on Admission: No VTE Mechan Device Prophylaxis: SCD's Procedures Urinary/Genital 52xxx-59xxx: 19703 Delivery global pkg Multi Select Codes Urinary/Genital Urinary/Genital CPT Codes: 15225 delivery+PP Care([facility])
[2025-03-12] MEDS: Ketorolac 30 MG/ML Syringe IV (18:29)
--- NOTE | 2025-03-12 20:48 | PLAC_PTH ---
PATIENT: PARVIN TORRES LOC: [facility] U#:[id number] AGE/SX: 29/F ROOM: WP004 RE03/12/[address]: Dr. Rose Marie Morales MD : 1995 BED: 1 DIS: 03/15/2025 SPEC #: [id number] RECD: 03/13/25 00:12 STATUS: SHARDA TY #: [id number] FUNMILAYO: 03/12/25 20:[address]: Rose Marie Morales DEPT: SURGICAL PATHOLOGY RECD BY: Grey Zambrano ENTERED: 03/15/25 13:02 SP TYPE: PLACENTA OTHR DR: No Primary Care Phys Tissues: A - Placenta, NOS B - Fallopian tube Procedures: Surgery Specimen Level II Surgery Specimen Level V HEADER OPERATION: Repeat section PRE-OP DIAGNOSIS: Tubal ligation, large amount of fluid TISSUE SUBMITTED: A- Placenta, B- Fallopian tubes *suture in right* MICROSCOPIC DIAGNOSIS A. Placenta, 37 weeks gestation, section: - Mild acute chorioamnionitis. - Tri-vessel umbilical cord without inflammation. - 946 grams, > 97th percentile (placental overgrowth). B. Fallopian tubes, resection: - No specific pathologic change (complete luminal cross-section confirmed), left. - No specific pathologic change (complete luminal cross-section confirmed), right. MICROSCOPIC DESCRIPTION Slides are reviewed. GROSS DESCRIPTION A. Received in formalin labeled with the patient's name and date of is a 946 g, 28.9 x 18.9 x 4.9 cm slightly irregular ovoid placental disc admixed with 158 g of loosely adherent and detached clotted blood. The membranes are sierra-pink and translucent with patchy opacity and marginal insertion. The attached trivascular umbilical cord measures 49.1 cm in length by 1.0-1.7 in diameter and inserts eccentrically, 6.8 cm from the disc edge. The surface is pink-blue and somewhat granular with engorged, arborizing vasculature and patchy subchorionic fibrin (15-20%). The maternal surface is pink-red to brown with a focally torn and frayed appearance, focal fibrin (<5%), and copious amounts of loosely adherent blood clot. When reapproximated, the maternal surface appears nearly complete. Sectioning reveals pink-red, boggy and congested cut surfaces with hemorrhage and focal fibrin (collectively comprising up to 20% of the cut surfaces). Mds Rn sections are submitted as follows: A1: Membrane rollA2: Umbilical cordA3-A4: Placenta B. Received in formalin labeled with the patient's name and date of . Designated as fallopian tubes, suture and R are 2 purple-red fimbriated fallopian tubes, one of which has a suture designated as R; they measure 8.2 x 0.6 cm (left) and 9.9 x 0.7 cm (right). The serosal surfaces are shaggy. No definitive lesions are identified. Mds Rn sections are submitted in 2 cassettes as follows: B1: Left fallopian tubeB2: Right fallopian tube IA 03/15/2025 CPT:12812,[id number]
[2025-03-12] MEDS: Lactated Ringers 1,000 ML 100 ML IV (20:50)
[2025-03-12 22:08] LABS: Hematocrit 26.1 % (37-47); Hemoglobin 8.1 g/dL (12.0-15.0); Immature Granulocytes Count 0.150 X10^3/uL (0.0-0.0); Mean Corp Hgb Conc 31.0 g/dL (32-36); Mean Corpuscular Volume 72.3 fL (81-99); Mean Platelet Vol. 10.3 fl (6.2-12.0); NRBC Flagged by Analyzer 0 % (0-5); Platelet Count 175 K/mm3 (150-450); RBC Distribution Width CV 17.9 % (11.6-14.6); RBC Distribution Width SD 45.1 fl (35.1-43.9); Red Blood Count 3.61 M/mm3 (4.2-5.4); White Blood Count 12.1 K/mm3 (4.4-11.0)
[2025-03-13] VITALS (11 sets, daily range): BP systolic 113–138; BP diastolic 74–91; PULSE 57–86; RESP 16–18; TEMP 36.1–36.6; O2SAT 95–99
[2025-03-13 00:15] LABS: Pathology Specimen OB SEE PATHOLOGY REPORT
[2025-03-13 00:15] LABS: Pathology Specimen OB SEE PATHOLOGY REPORT
[2025-03-13] MEDS: Lactated Ringers 1,000 ML 999 ML IV (00:25)
[2025-03-13] MEDS: Ketorolac 30 MG/ML Syringe IV ×3 (00:30→11:45)
--- NOTE | 2025-03-13 01:02 | DCINST_ITS ---
Discharge Instructions DC O2, CPAP, BIPAP needs Home O2 Discharge instructions: No Dressing / Incision Discharge Activity: May Not Drive (for 2 weeks or while taking narcotic pain medications.), May Shower and May Take a Tub Bath (in 7 days) May shower in (days): 0 May resume sexual activity in: 4-6 weeks Weight Bearing Status: Full weight bearing Lifting Restrictions: 20 pounds Dressing / Incision Call your doctor if your incision/area has: Continuous Slow Oozing, Sudden Increased Bleeding, Increased Pain/ Swelling, Increased Redness and Foul Smelling Discharge Call your doctor if you observe: Fever of 101 or Higher and Using more than 1 pad per hour (for 2 hours) Suture Line Care: Avoid Pulling/Pushing and Avoid Pinching/Bending Cleanse incision/area with: Soap & Water and Keep Dressing Clean & Dry Follow Up Care Please Follow Up With: Rose Marie Morales MD When: Call [phone] to make an appointment for an incision check in 1-2 weeks. Test Results: Test results from this visit will be discussed in further detail at your follow- up appointment, if applicable. Discharge Plan Admission Admit Date/Time: 03/12/25 11:40 Attending Provider: Rose Marie Morales Primary Care Provider: Care PhysicianKristi Primary Discharge Orders/Prescriptions Prescriptions: No Action albuterol sulfate 90 mcg/actuation aerosol powdr breath activated 2 inh inhalation Q4-6H PRN (Reason: shortness of breath or wheezing) Qty: 1 0RF PNV no.[id number] 400 mcg-35 mg- 25 mg-5 mg tablet,chewable 1 tab PO DAILY famotidine [Pepcid] 20 mg tablet 20 mg PO BID Qty: 60 6RF Rx Instructions: take with breakfast and before bedtime. (DME) insulin syringes (disposable) 1 mL syringe See Rx Instructions .Route Qty: 100 6RF Rx Instructions: As directed Novolin N NPH U-100 Insulin 100 unit/mL suspension 22 unit subcut QHS Rx Instructions: 22 units at bedtime, if fasting blood sugar over 95 increase by 1 unit nightly until under 95 (DME) Blood Glucose Test Strip See Rx Instructions .ROUTE .MEDSUPPLY Qty: 50 8RF Rx Instructions: As directed, fasting and 2 hours post meals (DME) blood-glucose meter Misc See Rx Instructions .ROUTE .MEDSUPPLY Qty: 1 0RF Rx Instructions: As directed, fasting and 2 hours post meals. alcohol swabs [Alcohol Wipes] Pads, Medicated 1 pad topical DAILY Qty: 100 0RF (DME) lancets Misc See Rx Instructions .ROUTE .MEDSUPPLY Qty: 200 2RF Rx Instructions: As directed, fasting and 2 hours post meals Referrals / Follow Up: Care Physician,No Primary [Primary Care Provider] -
[2025-03-13 06:15] LABS: Hematocrit 23.4 % (37-47); Hemoglobin 7.4 g/dL (12.0-15.0); Mean Corp Hgb Conc 31.6 g/dL (32-36); Mean Corpuscular Volume 71.1 fL (81-99); Mean Platelet Vol. 10.5 fl (6.2-12.0); Platelet Count 167 K/mm3 (150-450); RBC Distribution Width CV 17.6 % (11.6-14.6); RBC Distribution Width SD 44.5 fl (35.1-43.9); Red Blood Count 3.29 M/mm3 (4.2-5.4); White Blood Count 10.0 K/mm3 (4.4-11.0)
[2025-03-13] MEDS: LACTATED RINGERS 500 ML 999 ML IV (06:35)
--- NOTE | 2025-03-13 08:28 | PN.OBGYN_ITS ---
Subjective Subjective Patient doing well without complaints. Tolerating PO. Ambulating and voiding without difficulty. feeding well. Denies chest pain, shortness of breath, calf pain/swelling, fevers, chills, lightheadedness. Objective Data Objective Data Vital Signs: Vital Signs Temp Pulse Resp BP Pulse Ox O2 Del Method 97.9 F 63 16 138/91 H 96 Room Air 03/13/25 03:37 03/13/25 06:09 03/13/25 06:09 03/13/25 03:37 03/13/25 06:09 03/13/25 06:09 Oxygen Delivery Method Room Air Weight: 263 lb Body Mass Index (BMI) 48.1 Intake & Output: Intake and Output for Last 24 Hours 03/11/25 03/12/25 03/13/25 23:59 23:59 23:59 Intake Total 3249 / 3249 1500 / 1500 Output Total 1150 / 1200 250 / 250 Balance 2099 / 2049 1250 / 1250 Lab / Micro Data 03/13/25 05:55 03/12/25 12:40 Labs: Laboratory Results - last 24 hr 03/12/25 12:11: Uric Acid 7.1 H, AST 23 03/12/25 12:40: WBC 6.1, RBC 3.72 L, Hgb 7.9 L, Hct 26.0 L, MCV 69.9 L, MCH 21.2 L, MCHC 30.4 L, RDW Std Deviation 42.2, RDW Coeff of Kel 16.8 H, Plt Count 188, MPV 11.0, Immature Gran % (Auto) 2.000 H, Neut % (Auto) 74.6 H, Lymph % (Auto) 14.9 L, [place] % (Auto) 6.7, Eos % (Auto) 1.3, Baso % (Auto) 0.5, Absolute Neuts (auto) 4.6, Absolute Lymphs (auto) 0.91, Nucleated RBC % 0, Creatinine 0.66 L, Estim Creat Clear Calc 153.04, Est GFR (MDRD) Non-Af 121, ALT 12, U Random Total Protein 17.9 H, Urine Creatinine 63.80, Protein/Creatinin Ratio 281 H, Syphilis Total Ab Nonreactive, Blood Type B POSITIVE, Antibody Screen NEGATIVE, Crossmatch See Detail 03/12/25 13:45: Urine Opiates Screen Cancelled 03/12/25 13:45: Urine Opiates Screen NEGATIVE, U Buprenorphine Qual Cancelled 03/12/25 13:45: U Buprenorphine Qual NEGATIVE, Ur Oxycodone Screen Cancelled 03/12/25 13:45: Ur Oxycodone Screen NEGATIVE, Urine Methadone Screen Cancelled 03/12/25 13:45: Urine Methadone Screen NEGATIVE, Urine Fentanyl Screen Cancelled 03/12/25 13:45: Urine Fentanyl Screen NEGATIVE, Ur Barbiturates Screen Cancelled 03/12/25 13:45: Ur Barbiturates Screen NEGATIVE, Ur Phencyclidine Scrn Cancelled 03/12/25 13:45: Ur Phencyclidine Scrn NEGATIVE, Ur Amphetamines Screen Cancelled 03/12/25 13:45: Ur Amphetamines Screen NEGATIVE, U Benzodiazepines Scrn Cancelled 03/12/25 13:45: U Benzodiazepines Scrn NEGATIVE, Urine Cocaine Screen Cancelled 03/12/25 13:45: Urine Cocaine Screen NEGATIVE, U Cannabinoids Screen Cancelled 03/12/25 13:45: U Cannabinoids Screen NEGATIVE, Ur Drug Screen Comment 03/12/25 14:13: POC Glucose 81 03/12/25 18:42: POC Glucose 132 H 03/12/25 22:00: WBC 12.1 H, RBC 3.61 L, Hgb 8.1 L, Hct 26.1 L, MCV 72.3 L, MCH 22.4 L, MCHC 31.0 L, RDW Std Deviation 45.1 H, RDW Coeff of Kel 17.9 H, Plt Count 175, MPV 10.3, Immature Gran % (Auto) 1.200 H, Neut % (Auto) 91.2 H, Lymph % (Auto) 5.1 L, [place] % (Auto) 2.2, Eos % (Auto) 0.1, Baso % (Auto) 0.2, Absolute Neuts (auto) 11.0 H, Absolute Lymphs (auto) 0.62 L, Nucleated RBC % 0 03/13/25 05:53: POC Glucose 89 03/13/25 05:55: WBC 10.0, RBC 3.29 L, Hgb 7.4 L, Hct 23.4 L, MCV 71.1 L, MCH 22.5 L, MCHC 31.6 L, RDW Std Deviation 44.5 H, RDW Coeff of Kel 17.6 H, Plt Count 167, MPV 10.5 ROS Constitutional Constitutional: Reports systems reviewed and no addt'l complaints, except as documented Cardiovascular Cardiovascular: Reports systems reviewed and no addt'l complaints, except as documented Respiratory/Chest Respiratory/Chest: Reports systems reviewed and no addt'l complaints, except as documented Gastrointestinal Gastrointestinal: Reports systems reviewed and no addt'l complaints, except as documented Physical Exam Const alert, oriented x3 and no apparent distress HEENT Head and Scalp: atraumatic Resp normal respiratory effort GI soft to palpation and non-tender Bimanual Exam - Vag & Uterus: uterus non-tender Uterus Palpation: uterus fundus firm (below Umbilicus) Assessment & Plan (1) delivery delivered: COMMENT: RLTCS girl Taniya 37 ghtn diabetes 10lb 15 ounces anemia PLAN: Plan s/p LTCS PPD # 1 1. routine post care 2. breast feeding- support given 3. rh positive 4. rubella immune diabetes htn decreased urine outptut anemia sec chronic- sp 1 unit repeat at noon
[2025-03-13] MEDS: 0.9% Saline Lock 10 ML Syringe IV (09:36)
[2025-03-13] MEDS: Senna/Docusate Sodium 1 Tablet PO (09:36)
[2025-03-13] MEDS: Lactated Ringers 1,000 ML 100 ML IV (09:37)
[2025-03-13 12:38] LABS: Hematocrit 24.1 % (37-47); Hemoglobin 7.6 g/dL (12.0-15.0); Immature Granulocytes Count 0.120 X10^3/uL (0.0-0.0); Mean Corp Hgb Conc 31.5 g/dL (32-36); Mean Corpuscular Volume 71.7 fL (81-99); Mean Platelet Vol. 10.7 fl (6.2-12.0); NRBC Flagged by Analyzer 0.2 % (0-5); Platelet Count 198 K/mm3 (150-450); RBC Distribution Width CV 17.8 % (11.6-14.6); RBC Distribution Width SD 45.2 fl (35.1-43.9); Red Blood Count 3.36 M/mm3 (4.2-5.4); White Blood Count 9.3 K/mm3 (4.4-11.0)
[2025-03-14] VITALS (7 sets, daily range): BP systolic 125–156; BP diastolic 75–97; PULSE 72–89; RESP 16; TEMP 36.1–36.7; O2SAT 97–98
--- NOTE | 2025-03-14 09:40 | CASEMGMT ---
Social Work Assessment Labor and Delivery Unit Patient Address: [address] [place] [address] [place] [address] Phone number: [phone] Date of Referral: 03/12/2025 Time of Referral: 14:58 Referred By: Rose Marie Morales Date of Intervention: 03/14/25 Time of Intervention: 09:40 Reason for Referral: History of THC use in and anxiety. History obtained from:? Mother of baby (MOB), father of baby (NAM/Gunnar, age 28) and medical record review. ? Household composition: MOB, FOB, their 2 sons, Sin, age 7, Abdirahman, age 6 and daughter, South, born on 03/12/2025. Patient's parent/guardian status: MOB and FOB have been together for 12 years and for almost 8 of those years.? MOB denied any previous or current issues of domestic violence and described a positive relationship with the FOB. MOB and FOB both denied having any other children. Medical History: : 4, Para, now 3. SAM had a SAB on 03/23/24. MOB received care through [facility] beginning at 7 weeks and 6 days. Visits were noted to be routine. Apgars: 6,8 and 9. Weight: 10lbs, 5oz. Survey Data Technician: Dr. Novoa. Educational Status: MOB and FOB denied any issues with reading, writing or learning comprehension. MOB earned her high school diploma and the FOB earned his GED. Financial Status: MOB and FOB reported that their income is sufficient to meet the needs of their family at this time. MOB is a fgrl-ak-fnja mom (SAHM) and the FOB is currently employed full-time with [employer]. Infant Supplies: MOB and FOB reported they have the supplies they need for baby at this time including but not limited to: Car seat, bassinet, pack-n-play, diapers, bottles, breast pump and clothing. Childcare/Caregiver(s): SAM reported that as a SAHM, she will be the primary caregiver and the FOB will also provide care during times when he is home. Transportation: Both MOB and FOB are licensed drivers and have a reliable vehicle to get baby to and from all medical appointments. MOB and FOB denied any issues/barriers to transportation at this time. Programs/Agencies Involved: [employer]/Medicaid and the MOB is in the process of applying for food stamps. Children Services/Legal Issues: MOB and FOB denied any previous or current Children Services and/or legal involvement. Behavioral Health Issues: Denied. ? Mental Health History: SAM has a history of anxiety and ADD and denied as being on any medications at this time.? MOB described her symptoms as being ?mostly managed?. ??FOB denied any mental health history. Substance Use History:?? MOB ?has a history of marijuana use and used during .? Last use was said to be at 17 weeks of . MOB vaped through November of this year. ??FOB denied any current or history of drug and/or alcohol abuse. ? Family History:?? SAM reported her mother has a mental health history, a previous suicide attempt and a history of bipolar and schizophrenia, neither of which are being treated at this time. NAM reported that alcoholism runs on his side of the family (maternal grandparents). Drug Screens: MOB: 03/12/25: Negative. Baby did not receive any drug screens. Family/Social Stressors:?? Denied. Support Systems:? MOB identified her biggest support as the FOB, her maternal grandmother, MOB and FOB?s two friends and FOB?s parents. Depression/Shaken Baby/Safe Sleeping: Supervisor Inspection Department provided verbal and written education on PPD, increased risk factors for PPD, Safe Sleeping and Shaken Baby.? MOB and FOB both verbalized an understanding.??? ASSESSMENT: MOB and FOB provided consent to social work visit. Upon arrival, the MOB was sitting on the side of the hospital bed, and FOB was supervising their sons interact with , who were showing director of social services the stuffed animals they got for . Shortly into the visit, visitors arrived and MOB and FOB?s sons (not the ) waited in the lobby with family/visitors and the FOB then proceeded to hold and feed . MOB and FOB were both verbally engaged and director of social services observed positive interaction between all family members. MOB and FOB appeared to be attached and bonded to all children and were observed to be gentle and attentive to . ?At the end of the assessment, Supervisor Inspection Department requested to speak with the MOB alone, which she and the FOB were both agreeable to. MOB reported feeling safe in her home and denied any previous or current domestic violence, unmanaged mental health issues either with herself or with the FOB, and also denied any concerns with any drug or alcohol abuse either with herself or with the FOB as well as any unmanaged mental health concerns. Safe Plan of Care for infant related to substance use: MOB stated she will likely start using marijuana again however not until after she is done . Supervisor Inspection Department provided additional education about not providing care/supervising/driving with children while under the influence of any drugs and/or alcohol which MOB was agreeable to. PLAN: For MOB and baby to be discharged when medically ready. No other services requested or indicated. Supervisor Inspection Department shared communicated to the MOB about the mandated referral that has to be made due to THC during which MOB verbalized she understood. Chey Mejia, BARREL BANDER, BUSINESS OFFICE ASSISTANT
--- NOTE | 2025-03-14 11:15 | PCM.PN.OB ---
Subjective Subjective Patient doing well without complaints. Tolerating PO. Ambulating and voiding without difficulty. infant feeding well. Denies chest pain, shortness of breath, calf pain/swelling, fevers, chills, lightheadedness. Objective Data Objective Data Vital Signs: Vital Signs Temp Pulse Resp BP Pulse Ox O2 Del Method 97.9 F 78 16 147/82 H 97 Room Air 03/14/25 07:50 03/14/25 07:50 03/14/25 07:50 03/14/25 07:50 03/14/25 07:50 03/14/25 07:50 Oxygen Delivery Method Room Air Weight: 263 lb Body Mass Index (BMI) 48.1 Intake & Output: Intake and Output for Last 24 Hours 03/12/25 03/13/25 03/14/25 23:59 23:59 23:59 Intake Total 3249 / 3249 3500 / 3500 500 / 500 Output Total 1150 / 1200 950 / 1350 1100 / 1100 Balance 2099 / 2049 2550 / 2150 -600 / -600 Lab / Micro Data 03/13/25 12:30 03/12/25 12:40 Labs: Laboratory Results - last 24 hr 03/13/25 12:30: WBC 9.3, RBC 3.36 L, Hgb 7.6 L, Hct 24.1 L, MCV 71.7 L, MCH 22.6 L, MCHC 31.5 L, RDW Std Deviation 45.2 H, RDW Coeff of Kel 17.8 H, Plt Count 198, MPV 10.7, Immature Gran % (Auto) 1.300 H, Neut % (Auto) 76.8 H, Lymph % (Auto) 12.9 L, [place] % (Auto) 8.2, Eos % (Auto) 0.5, Baso % (Auto) 0.3, Absolute Neuts (auto) 7.1, Absolute Lymphs (auto) 1.19, Nucleated RBC % 0.2 ROS Constitutional Constitutional: Reports systems reviewed and no addt'l complaints, except as documented Cardiovascular Cardiovascular: Reports systems reviewed and no addt'l complaints, except as documented Respiratory/Chest Respiratory/Chest: Reports systems reviewed and no addt'l complaints, except as documented Gastrointestinal Gastrointestinal: Reports systems reviewed and no addt'l complaints, except as documented Physical Exam Const alert, oriented x3 and no apparent distress HEENT Head and Scalp: atraumatic Resp normal respiratory effort GI soft to palpation and non-tender Inspection: incision intact, healing well and drainage (none) Bimanual Exam - Vag & Uterus: uterus non-tender Uterus Palpation: uterus fundus firm (below Umbilicus) Assessment & Plan (1) Gestational hypertension: COMMENT: delivered 37. labetalol started 100 TID (2) delivery delivered: COMMENT: SM RLTCS girl Taniya 37 ghtn diabetes 10lb 15 ounces anemia (3) Sterilization: COMMENT: title 19 01/19/25 c/section is 03/23. (4) Gestational diabetes mellitus (GDM) affecting , antepartum: COMMENT: testing QID, nutrition consult. NPH at night. 2x weekly bpps 32 weeks. growth us q 4 weeks. Growth US at 36 wk. Plans R CS at 39 wk (5) Anemia affecting : QUALIFIERS: Trimester: second trimester Qualified Code(s): O99.012 - Anemia complicating , second trimester COMMENT: Ferritin, Iron Binding studies, Venofer infusions (6) History of miscarriage, currently : COMMENT: 03/2024 missed . (7) Hx of section: COMMENT: Pt wants to if spont labor (8) Supervision of high-risk : QUALIFIERS: Trimester: second trimester Qualified Code(s): O09.92 - Supervision of high risk , unspecified, second trimester COMMENT: PRR , NICOLE 03/30/25,girl tyree (named by oldest son), PC Abdirahman Vogt, Gunnar (9) : QUALIFIERS: Weeks of gestation: 37 weeks Qualified Code(s): Z3A.37 - 37 weeks gestation of COMMENT: NIPT low risk, FOB sister with Down Syndrome, nl anatomy (10) Marijuana use during : COMMENT: every HS, counseling provided, recommended cessation, informed of initial and random tox screens; Quit (11) Current smoker: COMMENT: smoking in education provided, pt considering quitting, recommended cessation Vaping daily. (12) Hx of pre-eclampsia in prior , currently : COMMENT: 1st only (13) Obesity affecting : QUALIFIERS: Trimester: second trimester Obesity type affecting : unspecified obesity Qualified Code(s): O99.212 - Obesity complicating , second trimester COMMENT: BMI 41, [id number] weekly bpps due to diabetes (14) Anxiety: COMMENT: stopped taking buspar, encouraged counseling. (15) Iron deficiency anemia: QUALIFIERS: Iron deficiency anemia type: unspecified iron deficiency Qualified Code(s): D50.9 - Iron deficiency anemia, unspecified COMMENT: EGD 01/17/2023-esophagitis, Bean's gland hyperplasia Has not tolerated oral iron in the past IV iron during PLAN: Plan s/p LTCS PPD # 2 1. routine post care 2. breast feeding- support given 3. rh positive 4. rubella immune Diabetes?check blood sugars at 6-week visit Gestational hypertension?started on labetalol 100 3 times daily monitor throughout the day today
--- NOTE | 2025-03-14 12:15 | CASEMGMT ---
Social Work Per mandate for THC use during , social work program coordinator made a referral to [facility] ([facility]) No restrictions on discharge. Chey Mejia, SURVEY COMPILER, SLOT FLOOR ATTENDANT
[2025-03-15] VITALS (8 sets, daily range): BP systolic 124–156; BP diastolic 68–91; PULSE 67–77; RESP 16; TEMP 36.1–36.8; O2SAT 97–100
[2025-03-15] MEDS: NIFEdipine 60 MG Tablet PO (03:00)
[2025-03-15 03:21] LABS: Hematocrit 23.4 % (37-47); Hemoglobin 7.3 g/dL (12.0-15.0); Immature Granulocytes Count 0.250 X10^3/uL (0.0-0.0); Mean Corp Hgb Conc 31.2 g/dL (32-36); Mean Corpuscular Volume 72.2 fL (81-99); Mean Platelet Vol. 9.7 fl (6.2-12.0); NRBC Flagged by Analyzer 0 % (0-5); Platelet Count 251 K/mm3 (150-450); RBC Distribution Width CV 18.6 % (11.6-14.6); RBC Distribution Width SD 47.5 fl (35.1-43.9); Red Blood Count 3.24 M/mm3 (4.2-5.4); White Blood Count 8.1 K/mm3 (4.4-11.0)
[2025-03-15 04:19] LABS: AST(SGOT) 18 U/L (<=31); Alanine Aminotransfer ALT/SGPT 13 U/L (<=34); Albumin, Serum 2.5 g/dL (3.5-5.0); Alkaline Phosphatase 114 U/L (35-104); Anion Gap 12 (5-15); BUN 12 mg/dL (4-19); BUN/Creat Ratio 16.4 RATIO (10-20); Calcium,Total 8.0 mg/dL (7.6-11.0); Carbon Dioxide 19.8 mmol/L (21.0-32.0); Chloride 106 mmol/L (98-108); Estimated Creatinine Clearance 142.26 ml/min (50-250); Globulin 2.9 g/dL (2.2-4.2); Glucose 109 mg/dL (70-99); Potassium 4.0 mmol/L (3.3-5.1)
--- NOTE | 2025-03-15 11:24 | PN.OBGYN_ITS ---
Subjective Subjective Patient doing well without complaints. Tolerating PO. Ambulating and voiding without difficulty. feeding well. Denies chest pain, shortness of breath, calf pain/swelling, fevers, chills, lightheadedness. Objective Data Objective Data Vital Signs: Vital Signs Temp Pulse Resp BP Pulse Ox O2 Del Method 98.2 F 77 16 140/79 H 97 Room Air 03/15/25 07:55 03/15/25 07:55 03/15/25 07:55 03/15/25 10:05 03/15/25 07:55 03/15/25 07:55 Oxygen Delivery Method Room Air Weight: 263 lb Body Mass Index (BMI) 48.1 Intake & Output: Intake and Output for Last 24 Hours 03/13/25 03/14/25 03/15/25 23:59 23:59 23:59 Intake Total 3500 / 3500 500 / 500 Output Total 950 / 1350 1100 / 1100 Balance 2550 / 2150 -600 / -600 Lab / Micro Data 03/15/25 03:10 03/15/25 03:10 Labs: Laboratory Results - last 24 hr 03/15/25 03:10: WBC 8.1, RBC 3.24 L, Hgb 7.3 L, Hct 23.4 L, MCV 72.2 L, MCH 22.5 L, MCHC 31.2 L, RDW Std Deviation 47.5 H, RDW Coeff of Kel 18.6 H, Plt Count 251, MPV 9.7, Immature Gran % (Auto) 3.100 H, Neut % (Auto) 75.6 H, Lymph % (Auto) 12.7 L, [place] % (Auto) 5.8, Eos % (Auto) 2.6, Baso % (Auto) 0.2, Absolute Neuts (auto) 6.1, Absolute Lymphs (auto) 1.02, Nucleated RBC % 0, Sodium 137, Potassium 4.0, Chloride 106, Carbon Dioxide 19.8 L, Anion Gap 12, BUN 12, Creatinine 0.71, Estim Creat Clear Calc 142.26, Est GFR (MDRD) Non-Af 117, BUN/Creatinine Ratio 16.4, Glucose 109 H, Calcium 8.0, Total Bilirubin < 0.15, AST 18, ALT 13, Alkaline Phosphatase 114 H, Total Protein 5.4 L, Albumin 2.5 L, Globulin 2.9, Albumin/Globulin Ratio 0.9 ROS Constitutional Constitutional: Reports systems reviewed and no addt'l complaints, except as documented Cardiovascular Cardiovascular: Reports systems reviewed and no addt'l complaints, except as documented Respiratory/Chest Respiratory/Chest: Reports systems reviewed and no addt'l complaints, except as documented Gastrointestinal Gastrointestinal: Reports systems reviewed and no addt'l complaints, except as documented Physical Exam Const alert, oriented x3 and no apparent distress HEENT Head and Scalp: atraumatic Resp normal respiratory effort GI soft to palpation and non-tender Inspection: incision intact, healing well and drainage (none) Bimanual Exam - Vag & Uterus: uterus non-tender Uterus Palpation: uterus fundus firm (below Umbilicus) Assessment & Plan (1) Gestational hypertension: COMMENT: delivered 37. labetalol started 100 TID PLAN: Plan s/p LTCS PPD # 2 1. routine post care 2. breast feeding- support given 3. rh positive 4. rubella immune adjusting bp meds added procardia consult anesthesia
--- NOTE | 2025-03-15 15:53 | NURSING ---
Pt states that headache has resolved.
== END 2025-03-15 15:45 | disposition home or self-care (01) | DRG 539 ==
PROVIDERS: Admitting Provider Obstetrics & Gynecology; Referring Provider Obstetrics & Gynecology; Visit Provider Obstetrics & Gynecology
DX: O24.429 Gestational diabetes mellitus in childbirth, unspecified control (principal); D50.9 Iron deficiency anemia, unspecified; F12.90 Cannabis use, unspecified, uncomplicated; F17.220 Nicotine dependence, chewing tobacco, uncomplicated; F17.210 Nicotine dependence, cigarettes, uncomplicated; J45.909 Unspecified asthma, uncomplicated; O99.324 Drug use complicating childbirth; M24.812 Other specific joint derangements of left shoulder, not elsewhere classified; M54.16 Radiculopathy, lumbar region; F41.9 Anxiety disorder, unspecified; L29.9 Pruritus, unspecified; O34.211 Maternal care for low transverse scar from previous cesarean delivery; O99.02 Anemia complicating childbirth; O99.284 Endocrine, nutritional and metabolic diseases complicating childbirth; O99.52 Diseases of the respiratory system complicating childbirth; Z3A.37 37 weeks gestation of pregnancy; Z30.2 Encounter for sterilization; F98.8 Other specified behavioral and emotional disorders with onset usually occurring in childhood and adolescence; O99.344 Other mental disorders complicating childbirth; M46.1 Sacroiliitis, not elsewhere classified; O99.334 Smoking (tobacco) complicating childbirth; Z37.0 Single live birth; Z90.49 Acquired absence of other specified parts of digestive tract; N96 Recurrent pregnancy loss; O99.893 Other specified diseases and conditions complicating puerperium; Z84.81 Family history of carrier of genetic disease; Z87.42 Personal history of other diseases of the female genital tract; O99.72 Diseases of the skin and subcutaneous tissue complicating childbirth; O13.4 Gestational [pregnancy-induced] hypertension without significant proteinuria, complicating childbirth
CPT/HCPCS: 36415; 59025; 59050; 80053; 80307; 82565; 82570; 82962; 84156; 84450; 84460; 84550; 85025; 85027; 86780; 86850; 86900; 86901; 88302; 88307; 99221; P9016; A4216; G0378; J2405

== ENCOUNTER 2025-03-20 10:24 | Emergency (ER) | payer MEDICAID, SELFPAY ==
[2025-03-20] VITALS (16 sets, daily range): BP systolic 152–180; BP diastolic 72–111; PULSE 56–87; RESP 15–28; TEMP 36.6–36.9; O2SAT 93–99; BMI 41.8
--- NOTE | 2025-03-20 10:39 | EKG12_ITS ---
Test Reason : STROKE TEAM Blood Pressure : */* mmHG Vent. Rate : 73 BPM Atrial Rate : 73 BPM P-R Int : 162 ms QRS Dur : 84 ms QT Int : 400 ms P-R-T Axes : 15 36 29 degrees QTcB Int : 440 ms Normal sinus rhythm Normal ECG Confirmed by LENCHO LEHMAN, NITO ([id number]), manuscript editor DAVID MIR ([id number]) on 03/22/2025 8:15:19 AM Referred By: Confirmed By: NITO MUSA MD
--- NOTE | 2025-03-20 10:39 | CT_ITS ---
PROCEDURE: STROKE BRAIN/HEAD WITHOUT CONT 03/20/2025 REASON FOR EXAM: NEURO DEFICIT, ACUTE, STROKE SUSPECTED TECHNIQUE: Procedure Code: CTBR.ST Modality: CT Procedure: STROKE BRAIN/HEAD WITHOUT CONT Coronal and Sagittal reconstruction series were provided. One or more dose reduction techniques were used (e.g., Automated exposure control, adjustment of the mA and/or kV according to patient size, use of iterative reconstruction technique. RADIATION DOSE SUMMARY: CTDlvol: 44.99 mGy DLP: 745.49 mGycm COMPARISON: None. FINDINGS: Brain: Normal. No acute territorial infarction. No acute intracranial hemorrhage. No mass-effect or midline shift. No ventriculomegaly. The craniocervical junction is unremarkable. CSF Spaces: Normal Sinuses/Mastoids: Clear. Bones: No acute bony abnormalities. CT/STROKE Brain/Head without Cont IMPRESSION: No acute intracranial abnormalities. Reading Location: [id number]
--- NOTE | 2025-03-20 10:40 | CT_ITS ---
PROCEDURE: STROKE CTA HEAD AND NECK W/CON 03/20/2025 REASON FOR EXAM: NEURO DEFICIT, ACUTE, STROKE SUSPECTED Left-sided facial droop. TECHNIQUE: Procedure Code: CTCTA.ST.HN Modality: CT Procedure: STROKE CTA HEAD AND NECK W/CON Multidetector CT angiography of the head and neck with intravenous contrast was performed with multiplaner and maximum intensity projection (MIP) reconstructions. CONTRAST: VOLUME: mL One or more dose reduction techniques were used (e.g., Automated exposure control, adjustment of the mA and/or kV according to patient size, use of iterative reconstruction technique). RADIATION DOSE SUMMARY: DLP: 890 mGycm COMPARISON: None available. FINDINGS: CTA NECK: The origins of the vessels arising from the aortic arch are patent without high- grade stenosis. Standard three-vessel configuration of the aortic arch. Right carotid artery: The right common carotid artery is patent without high- grade stenosis. The right cervical internal carotid artery is patent without hemodynamically significant stenosis. Left carotid artery: The left common carotid artery is patent without high-grade stenosis. The left cervical internal carotid artery is patent without hemodynamically significant stenosis. Cervical vertebral arteries: The cervical vertebral arteries are patent without high-grade stenosis. Codominant vertebral arteries. 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 Assessment for carotid stenosis is performed utilizing NASCET criteria. NASCET carotid stenosis criteria: 0% - none, 1-49% - mild, 50-69% - moderate, 70-89% - severe, 90-99% - critical. % ICA stenosis = (normal distal cervical ICA diameter - narrowest cervical ICA diameter / normal distal cervical ICA diameter) x 100. CTA Head: The petrous, cavernous, and intracranial internal carotid arteries are patent without high-grade stenosis. The proximal anterior cerebral arteries are patent without high-grade stenosis. The proximal middle cerebral arteries are patent without high-grade stenosis. The intradural vertebral arteries are patent without high-grade stenosis. The basilar artery is patent without high-grade stenosis. The proximal posterior cerebral arteries are patent without high-grade stenosis. No dominant intracranial aneurysm or high flow arteriovenous malformation is identified. Ancillary findings: None. CT/STROKE CTA Head AND Neck W/Con IMPRESSION: No high-grade arterial stenosis, aneurysm, or arteriovenous malformation. Reading Location: [id number]
[2025-03-20 10:47] LABS: Hematocrit 29.2 % (37-47); Hemoglobin 8.7 g/dL (12.0-15.0); Immature Granulocytes Count 0.270 X10^3/uL (0.0-0.0); Mean Corp Hgb Conc 29.8 g/dL (32-36); Mean Corpuscular Volume 73.0 fL (81-99); Mean Platelet Vol. 8.8 fl (6.2-12.0); NRBC Flagged by Analyzer 0 % (0-5); Platelet Count 429 K/mm3 (150-450); RBC Distribution Width CV 18.8 % (11.6-14.6); RBC Distribution Width SD 48.8 fl (35.1-43.9); Red Blood Count 4.00 M/mm3 (4.2-5.4); White Blood Count 7.7 K/mm3 (4.4-11.0)
--- OUTSIDE RECORDS SUMMARY | 2025-03-20 10:48 | XMS RPT_ITS | CCD ---
Author Organization [facility] Care Team Providers Care Deputy County Attorney Name Role Phone PROVIDER, UNKNOWN Unavailable Unavailable No, PCP Unavailable Unavailable Steve Martinez Unavailable Unavailable Unavailable Primary Care Provider Unavailabl e Unavailable Primary Care Provider Unavailgordon ARMAS APRN - PILO MARTIN Primary Care Phys ician Chanda TATTOO IDENTIFIER, TATTOO IDENTIFIER-C Pilo Devi Primary Care Pr ovider Chanda TATTOO IDENTIFIER, TATTOO IDENTIFIER-C Pilo Devi Referring Provi arpan MICHAEL Kumar Attending Provider MICHAEL Mulligan Attending Provider Dr. Davidson Yi Attending Provider Yazmin TATTOO IDENTIFIER, TATTOO IDENTIFIER-C Lorrie Del Valle Attending Provider MAGGY Pham Attending Provider [phone] Raimundo TATTOO IDENTIFIER, TATTOO IDENTIFIER-C Andres Garcias Attending Provider [phone] Chanda TATTOO IDENTIFIER, TATTOO IDENTIFIER-C Pilo Devi Primary Care Pr ovider Chanda TATTOO IDENTIFIER, TATTOO IDENTIFIER-C Pilo Devi Referring Provi arpan MICHAEL Kumar Attending Provider Friend, Dr. Ramirez Attending Provider FriendDr. Ramirez Other Provider RADHA GASTELUM Attending Unavailable PILO ARMAS Primary Care Unavailable Chanda TATTOO IDENTIFIER, TATTOO IDENTIFIER-Sai Devi Primary Care Pr ovider [place] TATTOO IDENTIFIER, TATTOO IDENTIFIER-C Pilo Marito Referring Provi arpan MICHAEL Kumar Attending Provider Antoinette TATTOO IDENTIFIER, TATTOO IDENTIFIER-C Parvin Attending Provider [place] TATTOO IDENTIFIER, TATTOO IDENTIFIER-C Pilo Marito Primary Care Pr ovider [place] TATTOO IDENTIFIER, TATTOO IDENTIFIER-C Piol Marito Referring Provi arpan Dr. James Garcia Attending Provider [phone] Dr. James Garcia Other Provider Ana RODRIGUEZ, MICHAEL Del Valle Attending Provider Antoinette TATTOO IDENTIFIER, TATTOO IDENTIFIER-C Parvin Attending Provider MAGGY Nielsen Attending Provider Chanda TATTOO IDENTIFIER, TATTOO IDENTIFIER-C Pilo Marito Primary Care Pr ovider Chanda TATTOO IDENTIFIER, TATTOO IDENTIFIER-C Pilo Marito Referring Provi arpan Chanda DASHBOARD DEVELOPER, Pilo D Primary Care Provider [place] TATTOO IDENTIFIER, TATTOO IDENTIFIER-C Pilo Marito Primary Care Pr ovider [place] TATTOO IDENTIFIER, TATTOO IDENTIFIER-C Pilo Marito Referring Provi arpan Antoinette TATTOO IDENTIFIER, TATTOO IDENTIFIER-C Parvin Attending Provider Dr. Zeferino Kwon Attending Provider Dr. Davidson Yi Attending Provider Ferleeann TATTOO IDENTIFIER-C Guy Attending Provider Ferkendallo, TATTOO IDENTIFIER-C Guy Primary Care Provider Ferleeann TATTOO IDENTIFIER-C Guy Referring Provider MICHAEL Kumar Attending Provider [place] TATTOO IDENTIFIER, TATTOO IDENTIFIER-C Pilo Marito Primary Care Pr ovider [place] TATTOO IDENTIFIER, TATTOO IDENTIFIER-C Pilo Marito Referring Provi arpan PHYSICIAN, NONE Primary Care Physician Unavailab le FROMMELT DO, MICKEY Attending Unavailable PHYSICIAN, NONE Primary Care Unavailable CHANDA WATER RESOURCE CONSULTANT - DASHBOARD DEVELOPER, PILO Norman Attending U navailable CHANDA WATER RESOURCE CONSULTANT - DASHBOARD DEVELOPER, PILO Norman Primary Care U navailable CHANDA WATER RESOURCE CONSULTANT - DASHBOARD DEVELOPER, PILO Norman Attending U navailable CHANDA WATER RESOURCE CONSULTANT - DASHBOARD DEVELOPER, PILO Norman Primary Care U navailable Unavailable Primary Care Provider Unavailgordon e Lula WATER RESOURCE CONSULTANT.DASHBOARD DEVELOPER, Guy M Primary Care Provider GUY HERNANDEZ Referring Unavailable FERULLO GUY M Primary Care Unavailable FERULLO, GUY M Primary Care Unavailable FERULLO, GUY M Primary Care Unavailable FERULLO, GUY M Primary Care Unavailable GUY HERNANDEZ Attending Unavailable FERKENDALLO GUY M Primary Care Unavailable Care Physician, No Primary Primary Care Provider Unavailable Dr. Jose Posadas DO Attending Provider Dr. Jose Posadas DO Emergency Provider Care Physician, No Primary Referring Provider Un available Dr. Rose Marie Morales MD Attending Provider [phone] Dr. Rose Marie Morales MD Referring Provider Parvin Elizabeth Attending Provider [phone] Renetta Nielsen CNM Attending Provider Renetta Nielsen CNM Referring Provider [phone] Dr. Chey Dupree DO Attending Provider Dr. Chey Dupree DO Referring Provider PHYSICIAN, NONE Primary Care Unavailable MAHNAZ VIVEROS MD Attending Unavailable NO PRIMARY MD JAMIL Primary Care Unavailable TAVON LEE Attending Unavailable RENETTA NIELSEN Referring Unavailable Care Physician, No Primary Primary Care Provider Unavailable Care Physician, No Primary Primary Care Provider Unavailable Care Physician, No Primary Referring Provider Un available Parvin Elizabeth Attending Provider Dr. Rose Marie Morales MD Attending Provider [phone] Dr. Rose Marie Morales MD Referring Provider Care Physician, No Primary Primary Care Provider Unavailable Care Physician, No Primary Referring Provider Un available Renetta Nielsen CNM Attending Provider [phone] Hema CNM, Renetta Referring Provider [phone] Carmen LEHMAN, Dr. Trotter Other Provider [phone] Care Physician, No Primary Primary Care Provider Unavailable Nawaf Adair DO, Dr. Guerrier Attending Provider Nawaf Adair DO, Dr. Guerrier Referring Provider Care Physician, No Primary Primary Care Provider Unavailable Nawaf Adair DO, Dr. Guerrier Attending Provider Nawaf Adair DO, Dr. Guerrier Referring Provider Care Physician, No Primary Primary Care Provider Unavailable Care Physician, No Primary Referring Provider Un available Renetta Nielsen CNM Attending Provider [phone] Nawaf Adair DO, Dr. Guerrier Other Provider [phone] Care Physician, No Primary Primary Care Provider Unavailable Care Physician, No Primary Referring Provider Un available Nawaf Adair DO, Dr. Guerrier Attending Provider Care Physician, No Primary Primary Care Provider Unavailable Care Physician, No Primary Referring Provider Un available Dr. Chey Dupree DO Attending Provider Hema BRADSHAWM, Renetta Attending Provider [phone] Hema WINTER, Renetta Referring Provider [phone] Antoinette DUNCAN-CParvin Attending Provider [phone] Rose Marie Morales MD Attending Provider [phone] Dr. Rose Marie Morales MD Referring Provider Dr. Rose Marie Morales MD Other Provider [phone] Dr. Chey Dupree DO Referring Provider Nawaf Adair DO, Dr. Guerrier Other Provider [phone] Carmen LEHMAN, Dr. Trotter Admit Provider [phone] Rose Marie Morales Referring Unavailable Rose Marie Morales Attending Unavailable Care Physician, No Primary Primary Care Unava ilable Care Physician, No Primary Primary Care Unava ilable Renetta Nielsen Referring Unavailable Renetta Nielsen Attending Unavailable MarcanthRose Marie padgett Referring Unavailable MarcanthonyRose Marie Attending Unavailable Care Physician, No Primary Primary Care Unava ilable Marcanthony, Rose Marie Attending Unavailable Marcanthony, Rose Marie Referring Unavailable Care Physician, No Primary Primary Care Unava ilable Marcanthony, Rose Marie Admitting Unavailable MarcRose Marie wooten Attending Unavailable Care Physician, No Primary Primary Care Unava ilable Care Physician, No Primary Referring Unava ilable Care Physician, No Primary Primary Care Unava ilable Renetta Nielsen Attending Unavailable Care Physician, No Primary Referring Unava ilable Simeone Veljoshua, Chey Attending Unavailabl e Care Physician, No Primary Primary Care Unava ilable Care Physician, No Primary Referring Unava ilable Ferullo, Guy Primary Care Unavailable Nawaf Adair, Chey Attending Unavailabl e Vande Veljoshua, Chey Referring Unavailabl e Antoinette TATTOO IDENTIFIER, Parvin Attending Unavailable Care Physician, No Primary Referring Unava ilable Care Physician, No Primary Primary Care Unava ilable Marcje, Rose Marie Attending Unavailable Care Physician, No Primary Referring Unava ilable Care Physician, No Primary Primary Care Unava ilable Simeone Giovany, Chey Attending Unavailabl e Simeone Veljoshua, Chey Referring Unavailabl e Care Physician, No Primary Primary Care Unava ilable Carmen, Rose Marie Attending Unavailable Rose Marie Morales Referring Unavailable Care Physician, No Primary Primary Care Unava ilable Marcanthony, Rose Marie Attending Unavailable Carmen, Rose Marie Referring Unavailable Care Physician, No Primary Primary Care Unava ilable Renetta Nielsen Attending Unavailable Care Physician, No Primary Primary Care Unava ilable Care Physician, No Primary Referring Unava ilable Ferullo, Guy Primary Care Unavailable Ferullo, Guy Referring Unavailable Shreya Pham Attending Unavailable Renetta Nielsen Attending Unavailable Care Physician, No Primary Primary Care Unava ilable Care Physician, No Primary Referring Unava ilable Renetta Nielsen Referring Unavailable Renetta Nielsen Attending Unavailable Care Physician, No Primary Primary Care Unava ilable Marcanthony, Rose Marie Attending Unavailable Marcanthlorin, Rose Marie Referring Unavailable Care Physician, No Primary Primary Care Unava ilable Marcanthony, Rose Marie Attending Unavailable Marcanthlorin, Rose Marie Referring Unavailable Chey Dupree Consulting Unavailabl e Care Physician, No Primary Primary Care Unava ilable Marcanthlorin, Rose Marie Attending Unavailable Marcanthony, Rose Marie Referring Unavailable Care Physician, No Primary Primary Care Unava ilable Care Physician, No Primary Primary Care Unava ilable Care Physician, No Primary Referring Unava ilable Rose Marie Morales Attending Unavailable Care Physician, No Primary Primary Care Unava ilable Care Physician, No Primary Referring Unava ilable Vande Veljoshua, Chey Attending Unavailabl e Ferullo, Guy Primary Care Unavailable Ferullo, Guy Referring Unavailable Rose Marie Morales Attending Unavailable Vande Velde, Chey Attending Unavailabl e Care Physician, No Primary Primary Care Unava ilable Vande Velde, Chey Referring Unavailabl e Vande Velde, Chey Attending Unavailabl e Care Physician, No Primary Primary Care Unava ilable Vande Velde, Chey Referring Unavailabl e Marcanthlorin, Rose Marie Referring Unavailable Rose Marie Morales Attending Unavailable Care Physician, No Primary Primary Care Unava ilable Rose Marie Morales Referring Unavailable Care Physician, No Primary Primary Care Unava ilable Rose Marie Morales Attending Unavailable Antoinette TATTOO IDENTIFIER, Parvin Attending Unavailable Care Physician, No Primary Primary Care Unava ilable Renetta Nielsen Referring Unavailable Renetta Nielsen Attending Unavailable Care Physician, No Primary Primary Care Unava ilable Vande Velde, Chey Attending Unavailabl e Care Physician, No Primary Primary Care Unava ilable Vande Velde, Chey Referring Unavailabl e Vande Velde, Chey Attending Unavailabl e Care Physician, No Primary Primary Care Unava ilable Vande Velde, Chey Referring Unavailabl e Jose Posadas Attending Unavailable Ferullo, Guy Primary Care Unavailable Jose Posadas Attending Unavailable Care Physician, No Primary Primary Care Unava ilable Ferullo, Guy Referring Unavailable Lula, Guy Primary Care Unavailable Rose Marie Morales Attending Unavailable Rose Marie Morales Referring Unavailable Care Physician, No Primary Primary Care Unava ilable Rose Marie Mroales Attending Unavailable Roes Marie Morales Consulting Unavailable Rose Marie Morales Admitting Unavailable Rose Marie Morales Attending Unavailable Care Physician, No Primary Primary Care Unava ilable Care Physician, No Primary Referring Unava ilable Rose Marie Morales Attending Unavailable Care Physician, No Primary Primary Care Unava ilable Care Physician, No Primary Referring Unava ilable Care Physician, No Primary Primary Care Unava ilable Nawaf Adair, Chey Attending Unavailabl e Vande Velde, Chey Consulting Unavailabl e Vande Veljoshua, Chey Referring Unavailabl e Rose Marie Morales Attending Unavailable Care Physician, No Primary Primary Care Unava ilable Care Physician, No Primary Referring Unava ilable Simeone Veljoshua, Chey Attending Unavailabl e Care Physician, No Primary Primary Care Unava ilable Care Physician, No Primary Referring Unava ilable Simeone Veljoshua, Chey Attending Unavailabl e Vande Veljoshua, Chey Referring Unavailabl e Care Physician, No Primary Primary Care Unava ilable Renetta Nielsen Attending Unavailable Care Physician, No Primary Primary Care Unava ilable Simeone Veljoshua, Chey Referring Unavailabl e Vande Velde, Chey Attending Unavailabl e Care Physician, No Primary Primary Care Unava ilable Rose Marie Morales Attending Unavailable Rose Marie Morales Referring Unavailable Care Physician, No Primary Primary Care Unava ilable Rose Marie Morales Consulting Renetta Olivera Attending Unavailable Care Physician, No Primary Referring Unava ilable Care Physician, No Primary Primary Care Unava ilable Care Physician, No Primary Primary Care Unava ilable Simeone Giovany, Chey Attending Unavailabl e Vande Velde, Chey Referring Unavailabl e Allergies Allergy Classification Reported Allergen(s) Allergy Type Date of Onset Reaction(s) Facility (1 source) Amoxicillin; Translations: [AMOXICILLIN] Drug Allergy [facility] Medications Current Medications Medication Drug Class(es) Dates Sig (Normalized) Sig (Original) acetaminophen 325 mg / HYDROcodone bitartrate 5 mg oral tablet (20 sources) Opioid Agonist Start: 11-12-2023 End: 11-15-2023 take 1 tablet by mouth every six hours as needed for pain Hext 325- 5 mg oral tablet Dose = 1 tab(s), Oral, q6h, PRN as needed for pain, X 3 day(s), # 12 tab(s), 0 Refill(s), Ankle pain, 104.5 Start Date: 11/12/23 Stop Date: 11/15/23 Status: Ordered Start: 08-19-2023 End: 10-04-2023 Start: 08-19-2023 End: 10-04-2023 Hydrocodone-Acetaminophen 5- 325 mg tablet Discontinued 1 {tbl} PO EVERY 4 HOURS NEEDED as needed for Pain 14 3 0 August 19, 2023 October 04, 2023 10:43am Back pain Dorsalgia, unspecified Start: 08-19-2023 End: 10-04-2023 take 1 tablet by mouth every four hours as needed Hydrocodone-Acetaminophen Discontinued 1 TABLET PO EVERY 4 HOURS NEEDED 14 3 August 19, 2023 October 04, 2023 10:43am Start: 12-26-2022 take 1 tablet by manisha th every six hours as needed Hydrocodone-Acetaminophen Active 1 TABLET PO EVERY 6 HOURS NEEDED 10 3 December 26, 2022 Start: 07-16-2022 End: 10-15-2022 Start: 07-16-2022 End: 10-15-2022 Hydrocodone-Acetaminophen 5- 325 mg tablet Discontinued 1 {tbl} PO EVERY 6 HOURS NEEDED as needed for Pain 10 3 0 July 16, 2022 October 15, 2022 11:42am Acute bilateral low back pain Low back pain, unspecified Start: 07-16-2022 End: 10-15-2022 take 1 tablet by mouth every six hours as needed Hydrocodone-Acetaminophen Discontinued 1 TABLET PO EVERY 6 HOURS NEEDED 10 3 July 16, 2022 October 15, 2022 11:42am Start: 11-01-2020 End: 06-19-2021 Start: 11-01-2020 End: 06-19-2021 Hydrocodone-Acetaminophen 1 TABLET tablet Discontinued 1 {tbl} PO EVERY 6 HOURS NEEDED as needed for Pain 10 3 November 01, 2020 June 19, 2021 3:31pm Dental abscess Periapical abscess without sinus Start: 11-01-2020 End: 06-19-2021 take 1 tablet by mouth every six hours as needed Hydrocodone-Acetaminophen Discontinued 1 TABLET PO EVERY 6 HOURS NEEDED 10 3 November 01, 2020 June 19, 2021 3:31pm acetaminophen 325 mg / oxyCO DONE hydrochloride 5 mg oral tablet (20 sources) Opioid Agonist Start: 03-13-2025 Start: 03-23-2024 End: 03-30-2024 Start: 03-23-2024 End: 03-30-2024 Oxycodone-Acetaminophen (Per cocet) 5-325 mg tablet Discontinued 1 {tbl} PO EVERY 6 HOURS 10 7 0 March 23, 2024 March 29, 2024 12:00am March 30, 2024 12:07am Acute pain in female pelvis Pelvic and perineal pain Start: 03-03-2019 End: 03-13-2019 Start: 03-03-2019 End: 03-13-2019 Oxycodone-Acetaminophen 1 TA BLET tablet Discontinued 1 {tbl} PO EVERY 6 HOURS NEEDED as needed for Pain 20 7 0 March 03, 2019 March 09, 2019 12:00am March 13, 2019 12:10am Postoperative pain Other acute postprocedural pain Start: 03-03-2019 End: 03-13-2019 take 1 tablet by mouth every six hours as needed Oxycodone-Acetaminophen Discontinued 1 TABLET PO EVERY 6 HOURS NEEDED 20 7 March 03, 2019 March 13, 2019 12:10am 200 actuat albuterol 0.09 mg /actuat dry powder inhaler (20 sources) beta2-Adrenergic Agonist Start: 10-18-2023 Start: 10-18-2023 Albuterol Sulf ate 90 mcg/actuation aerosol powdr breath activated Active 2 NMA INHALATION EVERY 4-6 HOURS as needed for shortness of breath or wheezing 1 0 October 18, 2023 12:00am Start: 10-18-2023 Albuterol Sulf ate Active 2 INH INHALATION EVERY 4-6 HOURS 1 October 18, 2023 12:00am Start: 01-15-2023 End: 10-18-2023 Albuterol Discontinued 90 MC G INHALATION NEEDED January 15, 2023 12:00am October 18, 2023 11:43am Start: 01-15-2023 Albuterol Acti ve 90 MCG INHALATION NEEDED January 14, 2023 11:00pm Start: 01-15-2023 Albuterol Acti ve 90 MCG INHALATION NEEDED January 15, 2023 12:00am Start: 05-03-2022 End: 07-02-2024 take 2 puff(s) by inhalation every six hours as needed albuterol HFA (PROAIR HFA) 90 mcg/actuation inhaler Inhale 2 Puffs as instructed every 6 hours as needed. 1 Each 05/03/2022 07/02/2024 Discontinued (Course of therapy completed) Start: 11-07-2020 take 2 puff(s) by in halation every four hours as needed for wheezing albuterol HFA (VENTOLIN HFA) 90 mcg/actuation inhaler Indications: Mild intermittent asthma, uncomplicated Inhale 2 Puffs as instructed every 4 hours as needed for Wheezing/Shortness of Breath. 1 Each 4 11/07/2020 Active Start: 11-10-2018 take 1 puff(s) by in halation every four hours as needed Albuterol Sulfate (Ventolin Hfa) 1 INHALER inhaler Active 2 PUFF INHALATION EVERY 4 HOURS NEEDED November 09, 2018 11:00pm End: 07-02-2024 ALBUTEROL INHALATION Inhale as instructed as needed. 07/02/2024 Discontinued (Course of therapy completed) ALBUTEROL INHALA TION Inhale as instructed as needed. Active ALBUTEROL INHALA TION Inhale as instructed as needed. 0 Active Comment on above: Inhale as instructed as needed. Inhale 2 Puffs as in structed every 4 hours as needed for Wheezing/Shortness of Breath. Inhale 2 Puffs as in structed every 6 hours as needed. Alcohol Swabs (Alcohol Wipes) pads, medicated (17 sources) Start: Alcohol Swabs (Alcohol Wipes) pads, medicated Active 1 NMA TOPICAL DAILY 100 0 January 04, 2025 12:00am amoxicillin 875 mg oral tablet (2 sources) Penicillin-class Antibacterial Start: 5 End: take 1 tablet by mouth twice daily amoxicillin (AMOXIL) 875 mg tablet Take 1 tablet by mouth two times a day for 5 days. 10 tablet 09/15/2024 09/20/2024 Active Start: 09-02-2023 End: 09-12-2023 take 1 capsule by mouth twice daily amoxicillin (AMOXIL) 500 mg capsule Take 1 capsule by mouth two times a day for 10 days. 20 capsule 0 09/02/2023 09/12/2023 Active Comment on above: Take 1 capsule by mo [facility] two times a day for 10 days. amoxicillin 875 mg / clavulanate 125 mg oral tablet (20 sources) Penicillin-class Antibacterial Start: 5 End: take 1 tablet by mouth twice daily amoxicillin-clavul anate potassium (AUGMENTIN) 875-125 mg per tablet Take 1 tablet by mouth two times a day for 7 days. 14 tablet 07/02/2024 07/09/2024 Active Start: 11-19-2022 End: 12-02-2022 Start: 11-19-2022 End: 12-02-2022 Amoxicillin-Pot Clavulanate 875-125 mg tablet Discontinued 1 {tbl} PO TWICE A DAY November 19, 2022 12:00am December 02, 2022 10:43am Start: 11-19-2022 End: 12-02-2022 take 1 tablet by mouth twice daily Amoxicillin-Pot Clavulanate Discontinued 1 TABLET PO TWICE A DAY November 19, 2022 12:00am December 02, 2022 10:43am Blood-Glucose Meter misc (17 sources) Start: 01-04-2025 Blood-Glucose Meter misc Active 0 .ROUTE .MEDSUPPLY 1 January 04, 2025 12:00am As directed, fasting and 2 hours post meals. doxycycline hyclate 100 mg oral tablet (1 source) Tetracycline-clas s Drug Start: 05-03-2022 End: 05-13-2022 take 1 tablet by mouth twice daily doxycycline (VIBRA-TABS) 100 mg tablet Take 1 tablet by mouth twice daily for 10 days. 20 tablet 0 05/03/2022 05/13/2022 Active Comment on above: Take 1 tablet by manisha twice daily for 10 days. famotidine 20 mg oral tablet (19 sources) Histamine-2 Receptor Antagonist Start: 12-09-2024 insulin isophane, human 100 unt/ml injectable suspension (15 sources) Start: 01-19-2025 End: 03-12-2025 Start: 01-19-2025 Insulin Nph Is oph U-100 Human (Novolin N Nph U-100 Insulin) 100 unit/mL suspension Active 10 U SC EVERY MORNING 10 January 19, 2025 12:00am 10units at bedtime, if fasting blood sugar over 95 increase by 1 unit nightly until under 95 Insulin Syringes (Disposable) 1 mL syringe (13 sources) Start: 01-19-2025 Insulin Syring es (Disposable) 1 mL syringe Active 0 .Route 100 January 19, 2025 12:00am As directed Ipratropium (3 sources) Anticholinergic Start: 10-18-2023 Ipratropium Br omide Active 2 SPRAY INTRANASAL 2 to 3 times per day October 18, 2023 12:00am administer into each nostril isopropyl alcohol 0.7 ml/ml medicated pad (1 source) Start: 01-04-2025 labetalol hydrochloride 200 mg oral tablet (1 source) beta-Adrenergic Raymundo Start: 03-15-2025 naproxen 500 mg oral tablet (20 sources) Nonsteroidal Anti-inflammatory Drug Start: 03-13-2025 Start: 03-23-2024 End: 03-30-2024 Start: 12-26-2022 take 500 mg by mouth twice daily Naproxen Active 500 MG PO TWICE A DAY December 26, 2022 12:00am Start: 07-16-2022 End: 10-15-2022 Start: 07-16-2022 End: 10-15-2022 take 1 tablet by mouth twice daily Naproxen 500 mg tablet Discontinued 500 mg PO TWICE A DAY 14 July 16, 2022 1:00am October 15, 2022 11:42am Start: 03-14-2020 End: 06-19-2021 Start: 03-14-2020 End: 06-19-2021 take 1 tablet by mouth twice daily as needed Naproxen 500 MG tablet Discontinued 500 mg PO TWICE DAILY NEEDED March 14, 2020 12:00am June 19, 2021 3:31pm NIFEdipine 30 mg osmotic 24 hr extended release oral tablet (1 source) Dihydropyridine Calcium Channel Raymundo Start: 03-15-2025 omeprazole 40 mg delayed release oral capsule (1 source) Proton Pump Inhibitor Start: 02-07-2023 omeprazo le 40 mg oral delayed release capsule Dose : 40 mg = 1 cap(s), Oral, qDay, # 30 cap(s), 5 Refill(s), Pharmacy: [id number], GERD (gastroesophageal reflux disease), 158.5, cm, 01/24/23 9:45:00 EDT, Height, kg, 02/07/23 11:15:00 EDT, Dosing Weight Start Date: 02/07/23 Status: Ordered [facility] No.[id number]-Ep a-Fish 400 mcg-35 mg- 25 mg-5 mg tablet,chewable (20 sources) Start: 08-11-2024 Pnv No.[id number]-[id number]-Dha-Ep a-Fish 400 mcg-35 mg- 25 mg-5 mg tablet,chewable Active 1 {tbl} PO DAILY August 11, 2024 1:00am Start: 08-11-2024 Pnv No.[id number]-Fa- Zi4-Fao-Moj-Fish 400 mcg-35 mg- 25 mg-5 mg tablet,chewable Active {tbl} PO August 11, 2024 1:00am vit no.012-mrwm-byghy ( VITAMIN) 27 mg iron- 800 mcg tab (2 sources) take 1 tablet by mouth once daily vit no.319-bccz-sigtu ( VITAMIN) 27 mg iron- 800 mcg tab Take 1 tablet by mouth once daily. Active (9 sources) Start: 01-19-2025 Start: 01-04-2025 Start: 08-11-2024 Start: 10-18-2023 End: 02-21-2024 Start: 01-28-2023 End: 02-11-2023 Start: 01-15-2023 End: 10-18-2023 Start: 11-10-2018 End: 06-19-2021 Completed/Discontinued Medications Medication Drug Class(es) Dates Sig (Normalized) Sig (Original) Albuterol 90 mcg/actuation aerosol (20 sources) Start: 01-15-2023 End: 10-18-2023 Albuterol 90 mcg/actuation aerosol Discontinued 90 ug INHALATION NEEDED January 15, 2023 12:00am October 18, 2023 11:43am SOB Start: 01-15-2023 End: 10-18-2023 Albuterol 90 mcg/actuation a erosol Discontinued 90 ug INHALATION NEEDED January 15, 2023 12:00am October 18, 2023 11:43am azithromycin 40 mg/ml oral s uspension (20 sources) Macrolide Antimicrobial Start: 12-02-2022 End: 12-07-2022 benzonatate 100 mg oral caps ule (20 sources) Non-narcotic Antitussive Start: 10-18-2023 End: 02-21-2024 Start: 05-03-2022 End: 07-02-2024 take 2 capsules by mouth every eight hours as needed benzonatate (TESSALON PERLES) 100 mg capsule Take 2 capsules by mouth three times daily as needed. 30 capsule 05/03/2022 07/02/2024 Discontinued (Course of therapy completed) Comment on above: Take 2 capsules by m out three times daily as needed. bismuth subsalicylate 525 mg oral tablet (20 sources) Bismuth Start: 01-29-20 End: 02-12-20 take 1 tablet by mouth three times daily Bismuth Subsalicylate 525 mg tablet Discontinued 525 mg PO THREE TIMES A DAY 42 14 0 January 28, 2023 12:00am February 10, 2023 12:00am February 11, 2023 12:03am busPIRone hydrochloride 5 mg oral tablet (20 sources) Start: 03-30-20 End: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 disc disorders; other back problems (20 sources) Inflammation of sacroiliac joint; Translations: [Sacroiliitis, not elsewhere classified] Onset: 02-26-2025 10-04-2023 Chronic Comment on above: (02/07/2023 CT Lumba r Spine without contrast): IMPRESSION: 1. No evidence of fracture. 2. Moderate L4-5 disc protrusion causing mild canal stenosis. 3. Small protrusions at L3-4 and L5-S1. Spondylosis; intervertebral disc disorders; other back problems (20 sources) Acute low back pain; Translations: [Acute bilateral low back pain] Onset: 02-26-2025 07-16-2022 Episodic Comment on above: (02/07/2023 CT Lumba r Spine without contrast): IMPRESSION: 1. No evidence of fracture. 2. Moderate L4-5 disc protrusion causing mild canal stenosis. 3. Small protrusions at L3-4 and L5-S1. (02/01/2023 11:54 ED T XR Spine Lumbar W/Obliques 4 Views) FINDINGS: There are five lumbar-type vertebral bodies. The vertebral body heights are maintained. The intervertebral disc spaces are preserved. There is no significant spondylolisthesis. There is no spondylolysis. The sacroiliac joints are normal. IMPRESSION: 1. No compression deformity or significant listhesis. Sprains and strains (20 sources) Injury of wrist; Translations: [Strain of unspecified muscle, fascia and tendon at wrist and hand level, left hand, initial encounter] 10-15-2022 Episodic Substance-related disorders (20 sources) Smoker; Translations: [Nicotine dependence, unspecified, uncomplicated] Onset: 02-26-2025 08-11-2024 Chronic Comment on above: smoking in education provided, pt considering quitting, recommended cessation smoking in education provided, pt considering quitting, recommended cessationVaping daily. Substance-related disorders (20 sources) Marijuana user; Translations: [Drug use complicating , unspecified trimester] Onset: 02-26-2025 08-11-2024 Episodic Comment on above: every HS, counseling provided, recommended cessation, informed of initial and random tox screens THC use daily-encour aged to stop smoking while every HS, counseling provided, recommended cessation, informed of initial and random tox screens; Quit Thyroid disorders (1 source) Subclinical hypothyroidism 07-26-2022 Chronic Unclassified (2 sources) Body mass index (BMI) [...] [Severe pre-eclampsia complicating childbirth] Onset: 08-02-2017 Unclassified (4 sources) Patient encounter status 03-30-2022 Unclassified (20 sources) Infertile; Translations: [Infertility] 10-29-2022 Unclassified (2 sources) New Patient; Translations: [New Patient] Onset: 10-10-2022 Urinary tract infections (20 sources) Cystitis; Translations: [Cystitis, unspecified without hematuria] 06-18-2020 Episodic Past or Other Problems Problem Classification Problem Date Documented Date Episodic/Chronic Abdominal pain (20 sources) Right upper quadrant pain; Translations: [Right upper quadrant pain] Onset: 12-29-2015 12-29-2015 Episodic Comment on above: LLQ US ordered Hemorrhage during ; abruptio placenta; placenta previa (20 sources) Threatened miscarriage; Translations: [Threatened ] Onset: 04-20-2024 03-16-2024 Episodic Nonspecific chest pain (20 sources) Chest pain; Translations: [Chest pain, unspecified] Onset: 08-03-2024 04-11-2024 Episodic Other complications of ; puerperium affecting management of mother (8 sources) Other specified complications of labor and delivery; Translations: [Diseases of the respiratory system complicating childbirth] Onset: 08-02-2017 Episodic Other complications of (4 sources) Maternal care for other abnormalities of pelvic organs, third trimester; Translations: [Maternal care for excessive growth, third trimester, not applicable or unspecified] Onset: 08-02-2017 Episodic Other complications of (8 sources) Finding of pattern of ; Translations: [Supervision of other high risk pregnancies, unspecified trimester] Onset: 07-04-2018 Resolved: 04-14-2019 04-14-2019 Episodic Other complications of (8 sources) Vomiting of , unspecified; Translations: [Unspecified vomiting of , unspecified as to episode of care or not applicable] Onset: 07-04-2018 Resolved: 04-14-2019 04-14-2019 Episodic Other complications of (1 source) Supervision of high risk , unspecified, unspecified trimester; Translations: [Supervision of high risk , unspecified, unspecified trimester] Onset: 12-09-2024 Episodic Other lower respiratory disease (2 sources) Shortness of breath; Translations: [Shortness of breath] Onset: 08-02-2017 Episodic Other screening for suspected conditions (not mental disorders or infectious disease) (2 sources) D-dimer above reference range; Translations: [Encounter for other screening follow-up] Onset: 09-17-2024 07-26-2022 Episodic Polyhydramnios and other problems of amniotic cavity (2 sources) Polyhydramnios, third trimester, not applicable or unspecified; Translations: [Polyhydramnios, third trimester, not applicable or unsp] Onset: 08-02-2017 Episodic Residual codes; unclassified (8 sources) FH: Chromosomal anomaly; Translations: [Family history of other congenital malformations, deformations and chromosomal abnormalities] Onset: 07-04-2018 Resolved: 04-14-2019 04-14-2019 Episodic Residual codes; unclassified (1 source) 24 weeks gestation of ; Translations: [24 weeks gestation of ] Onset: 12-09-2024 Episodic Residual codes; unclassified (1 source) 16 weeks gestation of ; Translations: [16 weeks gestation of ] Onset: 10-23-2024 Episodic Residual codes; unclassified (1 source) Less than 8 weeks gestation of ; Translations: [Less than 8 weeks gestation of ] Onset: 09-17-2024 Episodic Screening and history of mental health and substance abuse codes (12 sources) H/O: depression; Translations: [Personal history of other mental and behavioral disorders] Onset: 07-04-2018 07-04-2018 Episodic Unclassified (2 sources) Patient's other noncompliance with medication regimen; Translations: [Patient's other noncompliance with medication regimen] Onset: 08-02-2017 Episodic Results Test Name Value Interpretation Reference Range Facility Absolute lymphocyte countOrd ered By: Rose Marie Morales on 03-15-2025 Lymphocytes Auto (Unsp spec) [#/Vol] 1.02 10*3/uL 0.83-4.51 [facility] Anion gap in Serum or Plasma Ordered By: Rose Marie Carmen on 03-15-2025 Anion gap [Moles/Vol] 12 mmol/L - [facility] Automated lymphocyte count a s percentage of total leukocytesOrdered By: Rose Marie Carmen on 03-15-2025 Lymphocytes/100 WBC Auto (Unsp spec) 12.7 % Low 19- [facility] BUN/creatinine ratioOrdered By: Rose Marieviet Morales on 03-15-2025 Urea nitrogen/Creatinine [Mass ratio] 16.4 mg/mg 10- [facility] Basophil percentageOrdered B y: Rose Marie Carmen on 03-15-2025 Basophils/100 WBC (Bld) 0.2 % 0-1 [facility] Bilirubin, totalOrdered By: Rose Marieviet Morales on 03-15-2025 Bilirubin [Mass/Vol] mg/dL 0.00-1.30 [facility] CBC W/Diff, Automatedon 03-01 Absolute Lymph 1.02 X10 3/uL Normal 0.83-4.51 [facility] Comment on above: Performed By: #### L 100.0100 ####[facility] [address] [place], [address] Absolute Neut 6.1 X10 3/uL Normal 2.0-7.7 [facility] Comment on above: Performed By: #### L 100.0100 ####[facility] [address] [place], [address] Basophils/100 WBC (Bld) 0.2 % Normal 0-1 [facility] Comment on above: Performed By: #### L 100.0100 ####[facility] [address] [place], [address] Eosinophils/100 WBC (Bld) 2.6 % Normal 0-5 [facility] Comment on above: Performed By: #### L 100.0100 ####[facility] [address] [place], [address] Erythrocyte distribution width (RBC) [Ratio] 18.6 % High 11.6-14.6 [facility] Comment on above: Performed By: #### L 100.0100 ####[facility] [address] [place], [address] Hematocrit (Bld) [Volume fraction] 23.4 % Low 37-47 [facility] Comment on above: Performed By: #### L 100.0100 ####[facility] [address] [place], [address] Hemoglobin (Bld) [Mass/Vol] 7.3 g/dL Low 12.0-15.0 [facility] Comment on above: Performed By: #### L 100.0100 ####[facility] [address] [place], [address] IG% 3.100 High 0.0-0.9 [facility] Comment on above: Result Comment: IG% - Immature Granulocytes (promyelocytes, myelocytes andmetamyelocytes) > 1% indicates that a LEFT SHIFT is Present. Performed By: #### L 100.0100 ####[facility] [address] [place], [address] Lymphocytes/100 WBC (Bld) 12.7 % Low 19-41 [facility] Comment on above: Performed By: #### L 100.0100 ####[facility] [address] [place], [address] MCH (RBC) [Entitic mass] 22.5 pg Low 27.0-32.0 [facility] Comment on above: Performed By: #### L 100.0100 ####[facility] [address] [place], [address] MCHC (RBC) [Mass/Vol] 31.2 g/dL Low 32-36 [facility] Comment on above: Performed By: #### L 100.0100 ####[facility] [address] [place], [address] MCV (RBC) [Entitic vol] 72.2 fL Low 81-99 [facility] Comment on above: Performed By: #### L 100.0100 ####[facility] [address] [place], [address] Monocytes/100 WBC (Bld) 5.8 % Normal 0-10 [facility] Comment on above: Performed By: #### L 100.0100 ####[facility] [address] [place], [address] Neutrophils/100 WBC (Bld) 75.6 % High 47-70 [facility] Comment on above: Performed By: #### L 100.0100 ####[facility] [address] [place], [address] Nucleated RBC (Bld) [#/Vol] 0 10*3/uL Normal 0-5 [facility] Comment on above: Performed By: #### L 100.0100 ####[facility] [address] [place], [address] Platelet mean volume (Bld) [Entitic vol] 9.7 fL Normal 6.2-12.0 [facility] Comment on above: Performed By: #### L 100.0100 ####[facility] [address] [place], [address] Platelets (Bld) [#/Vol] 251 10*3/uL Normal 150-450 [facility] Comment on above: Performed By: #### L 100.0100 ####[facility] [address] [place], [address] RBC (Bld) [#/Vol] 3.24 10*6/uL Low 4.2-5.4 [facility] Comment on above: Performed By: #### L 100.0100 ####[facility] [address] [place], [address] RDW SD 47.5 fl High 35.1-43.9 [facility] Comment on above: Performed By: #### L 100.0100 ####[facility] [address] [place], [address] WBC (Bld) [#/Vol] 8.1 10*3/uL Normal 4.4-11.0 [facility] Comment on above: Performed By: #### L 100.0100 ####[facility] [address] [place], [address] Carbon dioxide, total [Moles /volume] in Central venous bloodOrdered By: Rose Marie Morales on 03-15-2025 CO2 [Moles/Vol] 19.8 mmol/L Low 21.0-32.0 [facility] Chloride assayOrdered By: Denia Morales on 03-15-2025 Chloride [Moles/Vol] 106 mmol/L 98-108 [facility] Comprehensive Metabolic Prof ilon 03-15-2025 Albumin [Mass/Vol] 2.5 g/dL Low 3.5-5.0 [facility] Comment on above: Performed By: #### L 500.4050 ####[facility] [address] [place], [address] Albumin/Globulin [Mass ratio] 0.9 {ratio} Normal 0.9-2.4 [facility] Comment on above: Performed By: #### L 500.4050 ####[facility] [address] [place], [address] ALK PHOS 114 U/L High 35-104 [facility] Comment on above: Performed By: #### L 500.4050 ####[facility] [address] [place], [address] ALT [Catalytic activity/Vol] 13 U/L Normal <=34 [facility] Comment on above: Performed By: #### L 500.4050 ####[facility] [address] [place], [address] AST [Catalytic activity/Vol] 18 U/L Normal <=31 [facility] Comment on above: Performed By: #### L 500.4050 ####[facility] [address] [place], [address] BUN/CRE 16.4 RATIO Normal 10-20 [facility] Comment on above: Performed By: #### L 500.4050 ####[facility] [address] [place], [address] Calcium [Mass/Vol] 8.0 mg/dL Normal 7.6-11.0 [facility] Comment on above: Performed By: #### L 500.4050 ####[facility] [address] [place], [address] Chloride [Moles/Vol] 106 mmol/L Normal 98-108 [facility] Comment on above: Performed By: #### L 500.4050 ####[facility] [address] [place], [address] CO2 [Moles/Vol] 19.8 mmol/L Low 21.0-32.0 [facility] Comment on above: Performed By: #### L 500.4050 ####[facility] [address] [place], [address] Creatinine [Mass/Vol] 0.71 mg/dL Normal 0.70-1.20 [facility] Comment on above: Performed By: #### L 500.4050 ####[facility] [address] [place], [address] ECRCL 142.26 ml/min Normal 50-250 [facility] Comment on above: Performed By: #### L [id number] ####[facility] [address] [place], [address] GAP 12 Normal 5-15 [facility] Comment on above: Performed By: #### L [id number] ####[facility] [address] [place], [address] GFR/1.73 sq M.predicted among non-blacks MDRD (S/P/Bld) [Vol rate/Area] 117 mL/min/{1.73_m2} Normal >60 [facility] Comment on above: Result Comment: mL/m in/1.73m2 CKD-EPI Creatinine Equation (2020) Performed By: #### L 500.4050 ####[facility] [address] [place], [address] Globulin (S) [Mass/Vol] 2.9 g/dL Normal 2.2-4.2 [facility] Comment on above: Performed By: #### L 500.4050 ####[facility] [address] [place], [address] Glucose [Mass/Vol] 109 mg/dL High 70-99 [facility] Comment on above: Performed By: #### L [id number] ####[facility] [address] [place], [address] Potassium [Moles/Vol] 4.0 mmol/L Normal 3.3-5.1 [facility] Comment on above: Performed By: #### L [id number] ####[facility] [address] [place], [address] Sodium [Moles/Vol] 137 mmol/L Normal 133-145 [facility] Comment on above: Performed By: #### L 500.4050 ####[facility] [address] [place], [address] T BILI < 0.15 Normal 0.00-1.30 [facility] Comment on above: Performed By: #### L [id number] ####[facility] [address] [place], [address] T PROT 5.4 g/dL Low 5.9-8.4 [facility] Comment on above: Performed By: #### L [id number] ####[facility] [address] [place], [address] Urea nitrogen [Mass/Vol] 12 mg/dL Normal 4-19 [facility] Comment on above: Performed By: #### L 500.4050 ####[facility] [address] [place], [place], [address] Eosinophil percentageOrdered By: Rose Marie Morales on 03-15-2025 Eosinophils/100 WBC (Bld) 2.6 % 0-5 [facility] Erythrocyte distribution wid th ratioOrdered By: Rose Marie Morales on 03-15-2025 Erythrocyte distribution width (RBC) [Ratio] 18.6 % High 11.6-14.6 [facility] Erythrocyte distribution wid th standard deviationOrdered By: Rose Marie Morales on 03-15-2025 Erythrocyte distribution width (RBC) [Ratio] 47.5 fl High 35.1-43.9 [facility] Glomerular filtration rate ( GFR) estimation/1.73 sq m using serum, plasma, or whole bOrdered By: Rose Marie Morales on 03-15-2025 GFR/1.73 sq M.predicted among non-blacks MDRD (S/P/Bld) [Vol rate/Area] 117 mL/min/{1.73_m2} >60 [facility] Hematocrit Auto (Bld) [Volum e fraction]Ordered By: Rose Marie Morales on 03-15-2025 Hematocrit (Bld) [Volume fraction] 23.4 % Low 37-47 [facility] Hemoglobin measurementOrdere d By: Rose Marie Morales on 03-15-2025 Hemoglobin (Bld) [Mass/Vol] 7.3 g/dL Low 12.0-15.0 [facility] Immature granulocytes/100 WB C Auto (Bld)Ordered By: Rose Marie Morales on 03-15-2025 Immature granulocytes/100 WBC (Bld) 3.100 % High 0.0-0.9 [facility] MCV (mean corpuscular volume ) determinationOrdered By: Rose Marie Morales on 03-15-2025 MCV (RBC) [Entitic vol] 72.2 fL Low 81-99 [facility] Mean corpuscular hemoglobin (MCH) determinationOrdered By: Rose Marie Morales on 03-15-2025 MCH (RBC) [Entitic mass] 22.5 pg Low 27.0-32.0 [facility] Monocyte percentageOrdered B y: Rose Marie Morales on 03-15-2025 Monocytes/100 WBC (Bld) 5.8 % 0-10 [facility] Neutrophil percentageOrdered By: Rose Marie Morales on 03-15-2025 Neutrophils/100 WBC (Bld) 75.6 % High 47-70 [facility] No Panel InformationOrdered By: Rose Marie Morales on 03-15-2025 18 U/L <32 [facility] Platelet countOrdered By: Denia Morales on 03-15-2025 Platelets (Bld) [#/Vol] 251 10*3/uL 150-450 [facility] Potassium measurement (mass/ volume)Ordered By: Rose Marei Morales on 03-15-2025 Potassium (Unsp spec) [Mass/Vol] 4.0 mmol/L 3.3-5.1 [facility] RBC Auto (Bld) [#/Vol]Ordere d By: Rose Marie Morales on 03-15-2025 RBC (Bld) [#/Vol] 3.24 10*6/uL Low 4.2-5.4 [facility] Serum creatinine measurement (mass/volume)Ordered By: Rose Marie Morales on 03-15-2025 Creatinine [Mass/Vol] 0.71 mg/dL 0.70-1.20 [facility] Serum globulin measurementOr dered By: Rose Marie Morales on 03-15-2025 Globulin (S) [Mass/Vol] 2.9 g/dL 2.2-4.2 [facility] Serum glucose measurement (m ass/volume)Ordered By: Rose Marie Morales on 03-15-2025 Glucose [Mass/Vol] 109 mg/dL High 70-99 [facility] Serum or plasma alanine montejo otransferase (ALT) measurementOrdered By: Rose Marie Morales on 03-15-2025 ALT [Catalytic activity/Vol] 13 U/L <35 [facility] Serum or plasma albumin erica urement (mass/volume)Ordered By: Rose Marie Morales on 03-15-2025 Albumin [Mass/Vol] 2.5 g/dL Low 3.5-5.0 [facility] Serum or plasma albumin/glob ulin mass ratioOrdered By: Rose Marie Morales on 03-15-2025 Albumin/Globulin [Mass ratio] 0.9 {ratio} 0.9-2.4 [facility] Serum or plasma alkaline juan a sphatase measurementOrdered By: Rose Marie Morales on 03-15-2025 ALP [Catalytic activity/Vol] 114 U/L High 35-104 [facility] Serum or plasma calcium erica urement (mass/volume)Ordered By: Rose Marie Morales on 03-15-2025 Calcium [Mass/Vol] 8.0 mg/dL 7.6-11.0 [facility] Serum or plasma urea nitroge n measurement (mass/volume)Ordered By: Rose Marie Morales on 03-15-2025 Urea nitrogen [Mass/Vol] 12 mg/dL 4-19 [facility] Sodium levelOrdered By: Sergio Morales on 03-15-2025 Sodium [Moles/Vol] 137 mmol/L 133-145 [facility] Total proteinOrdered By: Johnathan Morales on 03-15-2025 Protein [Mass/Vol] 5.4 g/dL Low 5.9-8.4 [facility] White blood cell (WBC) count Ordered By: Rose Marie Morales on 03-15-2025 WBC (Bld) [#/Vol] 8.1 10*3/uL 4.4-11.0 [facility] Bedside Glucoseon 03-13-2025 FINGERSTICK GLU 89 mg/dL Normal 74-106 [facility] Comment on above: Result Comment: LISA SNYDER OF PATIENT CARE PER NURSING PROTOCOL Performed By: #### L 501.080 ####[facility] [address] [place], [address] CBC W/Diff, Automatedon 03-01 Absolute Lymph 1.19 X10 3/uL Normal 0.83-4.51 [facility] Comment on above: Order Comment: REDRA W. PREVIOUS SPECIMEN REJECTED DUE TOQNS. 03/13/25 [address]. Performed By: #### L 100.0100 ####[facility] [address] [place], [address] Absolute Neut 7.1 X10 3/uL Normal 2.0-7.7 [facility] Comment on above: Order Comment: REDRA W. PREVIOUS SPECIMEN REJECTED DUE TOQNS. 03/13/25 [address]. Performed By: #### L 100.0100 ####[facility] [address] [place], [address] Basophils/100 WBC (Bld) 0.3 % Normal 0-1 [facility] Comment on above: Order Comment: REDRA W. PREVIOUS SPECIMEN REJECTED DUE TOQNS. 03/13/25 1219 Iris Lopez. Performed By: #### L 100.0100 ####[facility] [address] [place], [address] Eosinophils/100 WBC (Bld) 0.5 % Normal 0-5 [facility] Comment on above: Order Comment: REDRA W. PREVIOUS SPECIMEN REJECTED DUE TOQNS. 03/13/25 [address]. Performed By: #### L 100.0100 ####[facility] [address] [place], [address] Erythrocyte distribution width (RBC) [Ratio] 17.8 % High 11.6-14.6 [facility] Comment on above: Order Comment: REDRA W. PREVIOUS SPECIMEN REJECTED DUE TOQNS. 03/13/25 Nicola Lopez. Performed By: #### L 100.0100 ####[facility] [address] [place], [address] Hematocrit (Bld) [Volume fraction] 24.1 % Low 37-47 [facility] Comment on above: Order Comment: REDRA W. PREVIOUS SPECIMEN REJECTED DUE TOQNS. 03/13/25 Nicola Lopez. Performed By: #### L 100.0100 ####[facility] [facility] [address] [place], [address] Hemoglobin (Bld) [Mass/Vol] 7.6 g/dL Low 12.0-15.0 [facility] Comment on above: Order Comment: REDRA W. PREVIOUS SPECIMEN REJECTED DUE TOQNS. 03/13/25 Nicola Lopez. Performed By: #### L 100.0100 ####[facility] [address] [place], [address] IG% 1.300 High 0.0-0.9 [facility] Comment on above: Order Comment: REDRA W. PREVIOUS SPECIMEN REJECTED DUE TOQNS. 03/13/25 Nicola Lopez. Result Comment: IG% - Immature Granulocytes (promyelocytes, myelocytes andmetamyelocytes) > 1% indicates that a LEFT SHIFT is Present. Performed By: #### L 100.0100 ####[facility] [address] [place], [address] Lymphocytes/100 WBC (Bld) 12.9 % Low 19-41 [facility] Comment on above: Order Comment: REDRA W. PREVIOUS SPECIMEN REJECTED DUE TOQNS. 03/13/25 Nicola Lopez. Performed By: #### L 100.0100 ####[facility] [address] [place], [address] MCH (RBC) [Entitic mass] 22.6 pg Low 27.0-32.0 [facility] Comment on above: Order Comment: REDRA W. PREVIOUS SPECIMEN REJECTED DUE TOQNS. 03/13/25 1219 Iriscarole Lopez. Performed By: #### L 100.0100 ####[facility] [address] [place], [address] MCHC (RBC) [Mass/Vol] 31.5 g/dL Low 32-36 [facility] Comment on above: Order Comment: REDRA W. PREVIOUS SPECIMEN REJECTED DUE TOQNS. 03/13/25 1219 Iris Lopez. Performed By: #### L 100.0100 ####[facility] [address] [place], [address] MCV (RBC) [Entitic vol] 71.7 fL Low 81-99 [facility] Comment on above: Order Comment: REDRA W. PREVIOUS SPECIMEN REJECTED DUE TOQNS. 03/13/25 1219 Iris Lopez. Performed By: #### L 100.0100 ####[facility] [address] [place], [address] Monocytes/100 WBC (Bld) 8.2 % Normal 0-10 [facility] Comment on above: Order Comment: REDRA W. PREVIOUS SPECIMEN REJECTED DUE TOQNS. 03/13/25 Brigitte9 Iriscarole Lopez. Performed By: #### L 100.0100 ####[facility] [address] [place], [address] Neutrophils/100 WBC (Bld) 76.8 % High 47-70 [facility] Comment on above: Order Comment: REDRA W. PREVIOUS SPECIMEN REJECTED DUE TOQNS. 03/13/25 Brigitte9 Iriscarole Lopez. Performed By: #### L 100.0100 ####[facility] [address] [place], [address] Nucleated RBC (Bld) [#/Vol] 0.2 10*3/uL Normal 0-5 [facility] Comment on above: Order Comment: REDRA W. PREVIOUS SPECIMEN REJECTED DUE TOQNS. 03/13/25 1219 Iris Lopez. Performed By: #### L 100.0100 ####[facility] [address] [place], [address] Platelet mean volume (Bld) [Entitic vol] 10.7 fL Normal 6.2-12.0 [facility] Comment on above: Order Comment: REDRA W. PREVIOUS SPECIMEN REJECTED DUE TOQNS. 03/13/25 1219 Iriscarole Lopez. Performed By: #### L 100.0100 ####[facility] [address] [place], [address] Platelets (Bld) [#/Vol] 198 10*3/uL Normal 150-450 [facility] Comment on above: Order Comment: REDRA W. PREVIOUS SPECIMEN REJECTED DUE TOQNS. 03/13/25 1219 Iriscarole Lopez. Performed By: #### L 100.0100 ####[facility] [address] [place], [address] RBC (Bld) [#/Vol] 3.36 10*6/uL Low 4.2-5.4 [facility] Comment on above: Order Comment: REDRA W. PREVIOUS SPECIMEN REJECTED DUE TOQNS. 03/13/25 Brigitte9 Iriscarole Lopez. Performed By: #### L 100.0100 ####[facility] [address] [place], [address] RDW SD 45.2 fl High 35.1-43.9 [facility] Comment on above: Order Comment: REDRA W. PREVIOUS SPECIMEN REJECTED DUE TOQNS. 03/13/25 Brigitte9 Iriscarole Lopez. Performed By: #### L 100.0100 ####[facility] [address] [place], [address] WBC (Bld) [#/Vol] 9.3 10*3/uL Normal 4.4-11.0 [facility] Comment on above: Order Comment: DEVON W. PREVIOUS SPECIMEN REJECTED DUE TOQNS. 03/13/25 1219 Iris Lopez. Performed By: #### L 100.0100 ####[facility] [address] [place], [address] Absolute Neut Normal 2.0-7.7 [facility] Comment on above: Result Comment: This specimen has been REJECTED due to Laboratory criteria:Quanity Not Sufficient.[facility] has been notified of need of recollection.03/13/25 1217 Iris Lopez Performed By: #### L 100.0100 ####[facility] [address] [place], [address] HCT Normal 37-47 [facility] Comment on above: Result Comment: This specimen has been REJECTED due to Laboratory criteria:Quanity Not Sufficient.[facility] has been notified of need of recollection.03/13/25 1217 Iris Lopez Performed By: #### L 100.0100 ####[facility] [address] [place], [address] HGB Normal 12.0-15.0 [facility] Comment on above: Result Comment: This specimen has been REJECTED due to Laboratory criteria:Quanity Not Sufficient.[facility] has been notified of need of recollection.03/13/25 1217 Iris Lopez Performed By: #### L 100.0100 ####[facility] [address] [place], [address] MCH Normal 27.0-32.0 [facility] Comment on above: Result Comment: This specimen has been REJECTED due to Laboratory criteria:Quanity Not Sufficient.[facility] has been notified of need of recollection.03/13/25 1217 Iris Lopez Performed By: #### L 100.0100 ####[facility] [address] [place], [address] MCHC Normal 32-36 [facility] Comment on above: Result Comment: This specimen has been REJECTED due to Laboratory criteria:Quanity Not Sufficient.[facility] has been notified of need of recollection.03/13/25 1217 Iris Lopez Performed By: #### L 100.0100 ####[facility] [address] [place], [address] MCV Normal 81-99 [facility] Comment on above: Result Comment: This specimen has been REJECTED due to Laboratory criteria:Quanity Not Sufficient.[facility] has been notified of need of recollection.03/13/25 1217 Iris Lopez Performed By: #### L 100.0100 ####[facility] [address] [place], [address] NEUT% Normal 47-70 [facility] Comment on above: Result Comment: This specimen has been REJECTED due to Laboratory criteria:Quanity Not Sufficient.[facility] has been notified of need of recollection.03/13/25 1217 Iris Lopez Performed By: #### L 100.0100 ####[facility] [address] [place], [address] PLT Normal 150-450 [facility] Comment on above: Result Comment: This specimen has been REJECTED due to Laboratory criteria:Quanity Not Sufficient.[facility] has been notified of need of recollection.03/13/25 1217 Iris Lopez Performed By: #### L 100.0100 ####[facility] [address] [place], [address] RBC Normal 4.2-5.4 [facility] Comment on above: Result Comment: This specimen has been REJECTED due to Laboratory criteria:Quanity Not Sufficient.[facility] has been notified of need of recollection.03/13/25 1217 Iris Lopez Performed By: #### L 100.0100 ####[facility] [address] [place], [address] RDW CV Normal 11.6-14.6 [facility] Comment on above: Result Comment: This specimen has been REJECTED due to Laboratory criteria:Quanity Not Sufficient.[facility] has been notified of need of recollection.03/13/25 1217 Iris Lopez Performed By: #### L 100.0100 ####[facility] [address] [place], [address] RDW SD Normal 35.1-43.9 [facility] Comment on above: Result Comment: This specimen has been REJECTED due to Laboratory criteria:Quanity Not Sufficient.[facility] has been notified of need of recollection.03/13/25 1217 Iris Lopez Performed By: #### L 100.0100 ####[facility] [address] [place], [address] WBC Normal 4.4-11.0 [facility] Comment on above: Result Comment: This specimen has been REJECTED due to Laboratory criteria:Quanity Not Sufficient.[facility] has been notified of need of recollection.03/13/25 1217 Iris Lopez Performed By: #### L 100.0100 ####[facility] [address] [place], [address] CBC-Complete Blood Cnt No Di ffon 03-13-2025 Erythrocyte distribution width (RBC) [Ratio] 17.6 % High 11.6-14.6 [facility] Comment on above: Order Comment: Comme nts: Day #1Reason for Laboratory Test Performed By: #### L 100.0500 ####[facility] [address] [place], [address] Hematocrit (Bld) [Volume fraction] 23.4 % Low 37-47 [facility] Comment on above: Order Comment: Comme nts: Day #1Reason for Laboratory Test Performed By: #### L 100.0500 ####[facility] [address] [place], [address] Hemoglobin (Bld) [Mass/Vol] 7.4 g/dL Low 12.0-15.0 [facility] Comment on above: Order Comment: Comme nts: Day #1Reason for Laboratory Test Performed By: #### L 100.0500 ####[facility] [address] [place], [address] MCH (RBC) [Entitic mass] 22.5 pg Low 27.0-32.0 [facility] Comment on above: Order Comment: Comme nts: Day #1Reason for Laboratory Test Performed By: #### L 100.0500 ####[facility] [address] [place], [address] MCHC (RBC) [Mass/Vol] 31.6 g/dL Low 32-36 [facility] Comment on above: Order Comment: Comme nts: Day #1Reason for Laboratory Test Performed By: #### L 100.0500 ####[facility] [address] [place], [address] MCV (RBC) [Entitic vol] 71.1 fL Low 81-99 [facility] Comment on above: Order Comment: Comme nts: Day #1Reason for Laboratory Test Performed By: #### L 100.0500 ####[facility] [address] [place], [address] Platelet mean volume (Bld) [Entitic vol] 10.5 fL Normal 6.2-12.0 [facility] Comment on above: Order Comment: Comme nts: Day #1Reason for Laboratory Test Performed By: #### L 100.0500 ####[facility] [address] [place], [address] Platelets (Bld) [#/Vol] 167 10*3/uL Normal 150-450 [facility] Comment on above: Order Comment: Comme nts: Day #1Reason for Laboratory Test Performed By: #### L 100.0500 ####[facility] [address] [place], [address] RBC (Bld) [#/Vol] 3.29 10*6/uL Low 4.2-5.4 [facility] Comment on above: Order Comment: Comme nts: Day #1Reason for Laboratory Test Performed By: #### L 100.0500 ####[facility] [address] [place], [address] RDW SD 44.5 fl High 35.1-43.9 [facility] Comment on above: Order Comment: Comme nts: Day #1Reason for Laboratory Test Performed By: #### L 100.0500 ####[facility] [address] [place], [place], [address]) WBC (Bld) [#/Vol] 10.0 10*3/uL Normal 4.4-11.0 [facility] Comment on above: Order Comment: Comme nts: Day #1Reason for Laboratory Test Performed By: #### L 100.0500 ####[facility] [address] [place], [address] Discharge Instructionon 03-01 Discharge Instruction Normal [facility] deOrdered By: Rose Marie Morales on 03-13-2025 Glucose [Mass/Vol] 89 mg/dL 74-106 [facility] Pathology Specimen OBon 03-01 PATH. Spec OB SEE PATHOLOGY REPORT Normal [facility] Comment on above: Order Comment: Comme nts: SUTURE IN RIGHT TUBESend Specimen For (Specify): Studies @ [facility] Lab:RoutineTime of Procedure: 1616Date of Procedure: 03/12/25Reason specimen being sent to pathology (Hx/complications):TUBALType of specimen: Fallopian TubeType of procedure performed: Repeat Section Result Comment: Spec imen submitted to Anatomical Pathology Department fortesting. Performed By: #### L 350.1800 ####[facility] [address] [place], [place], [address] Order Comment: Send Specimen For (Specify): Studies @ [facility] Lab:RoutineTime of Procedure: 1616Date of Procedure: 03/12/25Reason specimen being sent to pathology (Hx/complications):LARGE AMOUNT OF FLUIDType of specimen: PlacentaType of procedure performed: Repeat Section AST(SGOT)on 03-12-2025 AST [Catalytic activity/Vol] 23 U/L Normal <=31 [facility] Comment on above: Performed By: #### L 501.4100, L501.1400, L501.0900 ####[facility] [address] [place], [address] Alanine Aminotransferas (SGP T)on 03-12-2025 ALT [Catalytic activity/Vol] 12 U/L Normal <=34 [facility] Comment on above: Performed By: #### L 501.4405, L509.8002, L501.1105 ####[facility] [address] [place], [address] Amphetamine detection with 1 000 ng/mL as cutoffOrdered By: Rose Marie Morales on 03-12-2025 Amphetamines Screen method >1000 ng/mL Ql (U) Negative < 200 ng/mL [facility] BRCon 03-12-2025 RC Normal [facility] Comment on above: Result Comment: [id number] BN RC NOT [id number] BP RC PRSMD TRFSD 03/12/25 1522 Performed By: #### B RC ####[facility] [address] [place], [address] Bedside Glucoseon 03-12-2025 FINGERSTICK GLU 132 mg/dL High 74-106 [facility] Comment on above: Result Comment: LISA GEMENT OF PATIENT CARE PER NURSING PROTOCOL Performed By: #### L 501.080 ####[facility] [address] [place], [address] FINGERSTICK GLU 81 mg/dL Normal 74-106 [facility] Comment on above: Result Comment: LISA GEMENT OF PATIENT CARE PER NURSING PROTOCOL Performed By: #### L 501.080 ####[facility] [address] [place], [address] CBC W/Diff, Automatedon 09-07 02-2024 Absolute Lymph 0.62 X10 3/uL Low 0.83-4.51 [facility] Comment on above: Performed By: #### L 100.0100 ####[facility] [address] [place], [address] Absolute Neut 11.0 X10 3/uL High 2.0-7.7 [facility] Comment on above: Performed By: #### L 100.0100 ####[facility] [address] [place], [address] Basophils/100 WBC (Bld) 0.2 % Normal 0-1 [facility] Comment on above: Performed By: #### L 100.0100 ####[facility] [address] [place], [address] Eosinophils/100 WBC (Bld) 0.1 % Normal 0-5 [facility] Comment on above: Performed By: #### L 100.0100 ####[facility] [address] [place], [address] Erythrocyte distribution width (RBC) [Ratio] 17.9 % High 11.6-14.6 [facility] Comment on above: Performed By: #### L 100.0100 ####[facility] [address] [place], [address] Hematocrit (Bld) [Volume fraction] 26.1 % Low 37-47 [facility] Comment on above: Performed By: #### L 100.0100 ####[facility] [address] [place], [address] Hemoglobin (Bld) [Mass/Vol] 8.1 g/dL Low 12.0-15.0 [facility] Comment on above: Performed By: #### L 100.0100 ####[facility] [address] [place], [address] IG% 1.200 High 0.0-0.9 [facility] Comment on above: Result Comment: IG% - Immature Granulocytes (promyelocytes, myelocytes andmetamyelocytes) > 1% indicates that a LEFT SHIFT is Present. Performed By: #### L 100.0100 ####[facility] [address] [place], [address] Lymphocytes/100 WBC (Bld) 5.1 % Low 19-41 [facility] Comment on above: Performed By: #### L 100.0100 ####[facility] [address] [place], [address] MCH (RBC) [Entitic mass] 22.4 pg Low 27.0-32.0 [facility] Comment on above: Performed By: #### L 100.0100 ####[facility] [address] [place], [address] MCHC (RBC) [Mass/Vol] 31.0 g/dL Low 32-36 [facility] Comment on above: Performed By: #### L 100.0100 ####[facility] [address] [place], [address] MCV (RBC) [Entitic vol] 72.3 fL Low 81-99 [facility] Comment on above: Performed By: #### L 100.0100 ####[facility] [address] [place], [address] Monocytes/100 WBC (Bld) 2.2 % Normal 0-10 [facility] Comment on above: Performed By: #### L 100.0100 ####[facility] [address] [place], [address] Neutrophils/100 WBC (Bld) 91.2 % High 47-70 [facility] Comment on above: Performed By: #### L 100.0100 ####[facility] [address] [place], [address] Nucleated RBC (Bld) [#/Vol] 0 10*3/uL Normal 0-5 [facility] Comment on above: Performed By: #### L 100.0100 ####[facility] [address] [place], [address] Platelet mean volume (Bld) [Entitic vol] 10.3 fL Normal 6.2-12.0 [facility] Comment on above: Performed By: #### L 100.0100 ####[facility] [address] [place], [address] Platelets (Bld) [#/Vol] 175 10*3/uL Normal 150-450 [facility] Comment on above: Performed By: #### L 100.0100 ####[facility] [address] [place], [address] RBC (Bld) [#/Vol] 3.61 10*6/uL Low 4.2-5.4 [facility] Comment on above: Performed By: #### L 100.0100 ####[facility] [address] [place], [address] RDW SD 45.1 fl High 35.1-43.9 [facility] Comment on above: Performed By: #### L 100.0100 ####[facility] [address] [place], [address] WBC (Bld) [#/Vol] 12.1 10*3/uL High 4.4-11.0 [facility] Comment on above: Performed By: #### L 100.0100 ####[facility] [address] [place], [address] Absolute Lymph 0.91 X10 3/uL Normal 0.83-4.51 [facility] Comment on above: Performed By: #### Sandra ESTEVEZ, L100.0100 ####[facility] [address] [place], [address] Absolute Neut 4.6 X10 3/uL Normal 2.0-7.7 [facility] Comment on above: Performed By: #### Sandra ESTEVEZ, L100.0100 ####[facility] [address] [place], [address] Basophils/100 WBC (Bld) 0.5 % Normal 0-1 [facility] Comment on above: Performed By: #### Sandra ESTEVEZ, L100.0100 ####[facility] [address] [place], [address] Eosinophils/100 WBC (Bld) 1.3 % Normal 0-5 [facility] Comment on above: Performed By: #### Sandra ESTEVEZ, L100.0100 ####[facility] [address] [place], [address] Erythrocyte distribution width (RBC) [Ratio] 16.8 % High 11.6-14.6 [facility] Comment on above: Performed By: #### Sandra ESTEVEZ, L100.0100 ####[facility] [address] [place], [address] Hematocrit (Bld) [Volume fraction] 26.0 % Low 37-47 [facility] Comment on above: Performed By: #### Sandra ESTEVEZ, L100.0100 ####[facility] [address] [place], [address] Hemoglobin (Bld) [Mass/Vol] 7.9 g/dL Low 12.0-15.0 [facility] Comment on above: Performed By: #### Sandra ESTEVEZ, L100.0100 ####[facility] [address] [place], [address] IG% 2.000 High 0.0-0.9 [facility] Comment on above: Result Comment: IG% - Immature Granulocytes (promyelocytes, myelocytes andmetamyelocytes) > 1% indicates that a LEFT SHIFT is Present. Performed By: #### Sandra ESTEVEZ, L100.0100 ####[facility] [address] [place], [address] Lymphocytes/100 WBC (Bld) 14.9 % Low 19-41 [facility] Comment on above: Performed By: #### Sandra ESTEVEZ, L100.0100 ####[facility] [address] [place], [address] MCH (RBC) [Entitic mass] 21.2 pg Low 27.0-32.0 [facility] Comment on above: Performed By: #### Sandra ESTEVEZ, L100.0100 ####[facility] [address] [place], [address] MCHC (RBC) [Mass/Vol] 30.4 g/dL Low 32-36 [facility] Comment on above: Performed By: #### Sandra ESTEVEZ, L100.0100 ####[facility] [address] [place], [address] MCV (RBC) [Entitic vol] 69.9 fL Low 81-99 [facility] Comment on above: Performed By: #### Sandra ESTEVEZ, L100.0100 ####[facility] [facility] [address] [place], [address] Monocytes/100 WBC (Bld) 6.7 % Normal 0-10 [facility] Comment on above: Performed By: #### Sandra ESTEVEZ, L100.0100 ####[facility] [address] [place], [address] Neutrophils/100 WBC (Bld) 74.6 % High 47-70 [facility] Comment on above: Performed By: #### Sandra ESTEVEZ, L100.0100 ####[facility] [address] [place], [address] Nucleated RBC (Bld) [#/Vol] 0 10*3/uL Normal 0-5 [facility] Comment on above: Performed By: #### Sandra ESTEVEZ, L100.0100 ####[facility] [address] [place], [address] Platelet mean volume (Bld) [Entitic vol] 11.0 fL Normal 6.2-12.0 [facility] Comment on above: Performed By: #### Sandra ESTEVEZ, L100.0100 ####[facility] [address] [place], [address] Platelets (Bld) [#/Vol] 188 10*3/uL Normal 150-450 [facility] Comment on above: Performed By: #### Sandra ESTEVEZ, L100.0100 ####[facility] [address] [place], [address] RBC (Bld) [#/Vol] 3.72 10*6/uL Low 4.2-5.4 [facility] Comment on above: Performed By: #### Sandra ESTEVEZ, L100.0100 ####[facility] [address] [place], [address] RDW SD 42.2 fl Normal 35.1-43.9 [facility] Comment on above: Performed By: #### Sandra ESTEVEZ, L100.0100 ####[facility] [address] [place], [address] WBC (Bld) [#/Vol] 6.1 10*3/uL Normal 4.4-11.0 [facility] Comment on above: Performed By: #### Sandra ESTEVEZ, L100.0100 ####[facility] [address] [place], [address] MR/POSTOP.ANEon 03-12-2025 MR/POSTOP.ANE Normal [facility] No Panel InformationOrdered By: Rose Marie Morales on 03-12-2025 [facility] Negative < 200 ng/mL [facility] Film Reader Office Visit Reporton 03-12-2025 Film Reader Office Visit Report Normal [facility] Operative Reporton Operative Report Normal [facility] Protein+Creatinine Ratio,Uri neon 03-12-2025 PROT:CRE RATIO 281 mg/g CRE High 0-200 [facility] Comment on above: Performed By: #### L 501.4100, L501.1400, L501.0900 ####[facility] [address] [place], [address] Protein (U) [Mass/Vol] 17.9 mg/dL High 0.0-12.0 [facility] Comment on above: Performed By: #### L 501.4100, L501.1400, L501.0900 ####[facility] [address] [place], [address] UR CREAT 63.80 mg/dL Normal 28.00-217.00 [facility] Comment on above: Performed By: #### L 501.4100, L501.1400, L501.0900 ####[facility] [address] [place], [address] Random urine creatinine erica urement (mass/volume)Ordered By: Rose Marie Morales on 03-12-2025 Creatinine Unsp time (U) [Mass/Vol] 63.80 mg/dL 28.00-217.00 [facility] Screening urine fentanyl isabel surementOrdered By: Rose Marie Morales on 03-12-2025 fentaNYL Screen Ql (U) Negative <5 ng/mL [facility] Serum Creatinine AND GFRon 0 03-12-2025 Creatinine [Mass/Vol] 0.66 mg/dL Low 0.70-1.20 [facility] Comment on above: Performed By: #### L 501.4405, L509.8002, L501.1105 ####[facility] [address] [place], [address] ECRCL 153.04 ml/min Normal 50-250 [facility] Comment on above: Performed By: #### L 501.4405, L509.8002, L501.1105 ####[facility] [address] [place], [address] GFR/1.73 sq M.predicted among non-blacks MDRD (S/P/Bld) [Vol rate/Area] 121 mL/min/{1.73_m2} Normal >60 [facility] Comment on above: Result Comment: mL/m in/1.73m2 CKD-EPI Creatinine Equation (2020) Performed By: #### L 501.4405, L509.8002, L501.1105 ####[facility] [address], [address] Serum or plasma uric acid me asurement (mass/volume)Ordered By: Rose Marie Morales on 03-12-2025 Urate [Mass/Vol] 7.1 mg/dL High 2.6-6.0 [facility] Surgery Specimen Level IIon 03-12-2025 Surgery Specimen Level II Normal [facility] Comment on above: Performed By: #### P SUII ####[facility] [address], [address] Syphilis Antibodieson 2024 Syphilis Abs Non-Reactive Normal Nonreactive [facility] Comment on above: Performed By: #### L 501.4405, L509.8002, L501.1105 ####[facility] [address] [place], [address] Type AND Screenon 03-12-2025 Ab SCREEN GEL Negative Normal [facility] Comment on above: Order Comment: SC-SE CTION Performed By: #### B TS, L100.0100 ####[facility] [address] [place], [address] ABO and Rh group Nom (Bld) Blood group B Rh(D) positive Normal [facility] Comment on above: Order Comment: SC-SE CTION Performed By: #### B TS, L100.0100 ####[facility] [address] [place], [address] Ur Drg Scn w/Rflx AMPH Confi rmon 03-12-2025 Amphetamines Ql (U) Negative Normal <1000 ng/mL [facility] Comment on above: Order Comment: THC Performed By: #### L 505.5002 ####[facility] [address] [place], [address] BARBITIURATES Negative Normal < 200 ng/mL [facility] Comment on above: Order Comment: THC Performed By: #### L 505.5002 ####[facility] [address] [place], [address] BENZODIAZIPINE Negative Normal < 200 ng/mL [facility] Comment on above: Order Comment: THC Performed By: #### L 505.5002 ####[facility] [address] [place], [address] BUP Ur Drug Scr Negative Normal < 200 ng/mL [facility] Comment on above: Order Comment: THC Performed By: #### L 505.5002 ####[facility] [address] [place], [address] Cocaine Ql (U) Negative Normal < 300 ng/mL [facility] Comment on above: Order Comment: THC Performed By: #### L 505.5002 ####[facility] [address] [place], [address] Fentanyl Negative Normal <5 ng/mL [facility] Comment on above: Order Comment: THC Result Comment: CONF IRMATORY TESTING FOR ALL POSITIVE URINE DRUG SCREENRESULTS WILL ONLY BE SENT OUT UPON PHYSICIAN ORDER.[employer] Urine Drug Screen methods provide only preliminaryanalytical test results. A more specific alternate chemicalmethod must be used in order to obtain a confirmedanalytical result. Gas chromatography/mass spectrometery(GC/MS) is the preferred confirmatory method. Clinicalconsideration and professional judgement should be appliedto any drug of abuse test result, particularly whenpreliminary positive results are used.Urine TCA testing must be ordered separately. Use testmnemonic: UTCA Performed By: #### L 505.5002 ####[facility] [address] [place], [address] Methadone Ql (U) Negative Normal < 300 ng/mL [facility] Comment on above: Order Comment: THC Performed By: #### L 505.5002 ####[facility] [address] [place], [address] Opiates Ql (U) Negative Normal < 300 ng/mL [facility] Comment on above: Order Comment: THC Performed By: #### L 505.5002 ####[facility] [address] [place], [address] OXYCODONE Negative Normal < 100 ng/mL [facility] Comment on above: Order Comment: THC Performed By: #### L 505.5002 ####[facility] [address] [place], [address] PCP Negative Normal < 25 ng/mL [facility] Comment on above: Order Comment: THC Performed By: #### L 505.5002 ####[facility] [address] [place], [address] THC Negative Normal < 50 ng/mL [facility] Comment on above: Order Comment: THC Performed By: #### L 505.5002 ####[facility] [address] [place], [address] Uric Acidon 03-12-2025 URIC 7.1 mg/dL High 2.6-6.0 [facility] Comment on above: Result Comment: The drugs N-Acetylcysteine and Metamizole may falselydepress this assay. Performed By: #### L 501.4100, L501.1400, L501.0900 ####[facility] [address] [place] [address] Urine Drug Screen (VISTA)on 03-12-2025 AMPHETAMINES Normal <1000 ng/mL [facility] Comment on above: Result Comment: DUPL ICATE ORDER PER NURSE. Performed By: #### L 505.5000 ####[facility] [address] [place] [address] BARBITIURATES Normal < 200 ng/mL [facility] Comment on above: Result Comment: DUPL ICATE ORDER PER NURSE. Performed By: #### L 505.5000 ####[facility] [address] [place] [address] BENZODIAZIPINE Normal < 200 ng/mL [facility] Comment on above: Result Comment: DUPL ICATE ORDER PER NURSE. Performed By: #### L 505.5000 ####[facility] [address] [place] [address] BUP Ur Drug Scr Normal < 200 ng/mL [facility] Comment on above: Result Comment: DUPL ICATE ORDER PER NURSE. Performed By: #### L 505.5000 ####[facility] [address] [place] [address] COCAINE Normal < 300 ng/mL [facility] Comment on above: Result Comment: DUPL ICATE ORDER PER NURSE. Performed By: #### L 505.5000 ####[facility] [address] [place] [address] Fentanyl Normal <5 ng/mL [facility] Comment on above: Result Comment: DUPL ICATE ORDER PER NURSE. Performed By: #### L 505.5000 ####[facility] [address] [place] [address] METHADONE Normal < 300 ng/mL [facility] Comment on above: Result Comment: DUPL ICATE ORDER PER NURSE. Performed By: #### L 505.5000 ####[facility] [address] [facility] [address] OPIATES Normal < 300 ng/mL [facility] Comment on above: Result Comment: DUPL ICATE ORDER PER NURSE. Performed By: #### L 505.5000 ####[facility] [address] [place] [address] OXYCODONE Normal < 100 ng/mL [facility] Comment on above: Result Comment: DUPL ICATE ORDER PER NURSE. Performed By: #### L 505.5000 ####[facility] [address] [place] [address] PCP Normal < 25 ng/mL [facility] Comment on above: Result Comment: DUPL ICATE ORDER PER NURSE. Performed By: #### L 505.5000 ####[facility] [address] [place] [address] THC Normal < 50 ng/mL [facility] Comment on above: Result Comment: DUPL ICATE ORDER PER NURSE. Performed By: #### L 505.5000 ####[facility] [address] [place] [address] Fentanyl Normal <5 ng/mL [facility] Comment on above: Result Comment: DUPL ICATE ORDERCONFIRMATORY TESTING FOR ALL POSITIVE URINE DRUG SCREENRESULTS WILL ONLY BE SENT OUT UPON PHYSICIAN ORDER.[employer] Pro Urine Drug Screen methods provide only preliminaryanalytical test results. A more specific alternate chemicalmethod must be used in order to obtain a confirmedanalytical result. Gas chromatography/mass spectrometery(GC/MS) is the preferred confirmatory method. Clinicalconsideration and professional judgement should be appliedto any drug of abuse test result, particularly whenpreliminary positive results are used.Urine TCA testing must be ordered separately. Use testmnemonic: UTCA Performed By: #### L 505.5000 ####[facility] [address] [place] [address] AMPHETAMINES Normal <1000 ng/mL [facility] Comment on above: Result Comment: DUPL ICATE ORDER Performed By: #### L 505.5000 ####[facility] [address] [place] [address] BARBITIURATES Normal < 200 ng/mL [facility] Comment on above: Result Comment: DUPL ICATE ORDER Performed By: #### L 505.5000 ####[facility] [address] [place] [address] BENZODIAZIPINE Normal < 200 ng/mL [facility] Comment on above: Result Comment: DUPL ICATE ORDER Performed By: #### L 505.5000 ####[facility] [address] [place] [address] BUP Ur Drug Scr Normal < 200 ng/mL [facility] Comment on above: Result Comment: DUPL ICATE ORDER Performed By: #### L 505.5000 ####[facility] [address] [place] [address] COCAINE Normal < 300 ng/mL [facility] Comment on above: Result Comment: DUPL ICATE ORDER Performed By: #### L 505.5000 ####[facility] [address] [place] [address] METHADONE Normal < 300 ng/mL [facility] Comment on above: Result Comment: DUPL ICATE ORDER Performed By: #### L 505.5000 ####[facility] [address] [place] [address] OPIATES Normal < 300 ng/mL [facility] Comment on above: Result Comment: DUPL ICATE ORDER Performed By: #### L 505.5000 ####[facility] [address] [place] [address] OXYCODONE Normal < 100 ng/mL [facility] Comment on above: Result Comment: DUPL ICATE ORDER Performed By: #### L 505.5000 ####[facility] [address] [place], [place], [address] PCP Normal < 25 ng/mL [facility] Comment on above: Result Comment: DUPL ICATE ORDER Performed By: #### L 505.5000 ####[facility] [address] [place], [place], [address] THC Normal < 50 ng/mL [facility] Comment on above: Result Comment: DUPL ICATE ORDER Performed By: #### L 505.5000 ####[facility] [address] [place], [place], [address] Urine phencyclidine (PCP) de tectionOrdered By: Rose Marie Morales on 03-12-2025 Phencyclidine Ql (U) Negative < 25 ng/mL [facility] Urine protein measurement (m ass/volume)Ordered By: Rose Marie Morales on 03-12-2025 Protein (U) [Mass/Vol] 17.9 mg/dL High 0.0-12.0 [facility] Urine protein/creatinine mas s ratioOrdered By: Rose Marie Morales on 03-12-2025 Protein/Creatinine (U) [Mass ratio] 281 mg/g CRE High 0-200 [facility] (ROM) Rupture Of Membraneson 03-03-2025 ROM Negative Normal Negative [facility] Comment on above: Result Comment: Amni otic fluid not present indicates No Rupture of FetalMembranes at time of specimen collection. Performed By: #### L 205.1000 ####[facility] [address] [place], [place], [address] OB Triage Physician Noteon 0 03-03-2025 OB Triage Physician Note Normal [facility] Absolute lymphocyte countOrd ered By: Renetta Nielsen on 02-26-2025 Lymphocytes Auto (Unsp spec) [#/Vol] 0.88 10*3/uL 0.83-4.51 [facility] Absolute neutrophil countOrd ered By: Renetta Nielsen on 02-26-2025 Neutrophils (Bld) [#/Vol] 4.9 10*3/uL 2.0-7.7 [facility] Anion gap in Serum or Plasma Ordered By: Renetta Nielsen on 02-26-2025 Anion gap [Moles/Vol] 10 mmol/L 5-15 [facility] Automated lymphocyte count a s percentage of total leukocytesOrdered By: Renetta Nielsen on 02-26-2025 Lymphocytes/100 WBC Auto (Unsp spec) 14.0 % Low 19-41 [facility] BUN/creatinine ratioOrdered By: Renetta Nielsen on 02-26-2025 Urea nitrogen/Creatinine [Mass ratio] 9.5 mg/mg Low 10-20 [facility] Basophil percentageOrdered B y: Renetta Nielsen on 02-26-2025 Basophils/100 WBC (Bld) 0.3 % 0-1 [facility] Bilirubin, totalOrdered By: Renetta Nielsen on 02-26-2025 Bilirubin [Mass/Vol] 0.22 mg/dL 0.00-1.30 [facility] CBC W/Diff, Automatedon 01-30 Absolute Lymph 0.88 X10 3/uL Normal 0.83-4.51 [facility] Comment on above: Performed By: #### L 100.0100, L500.4050, L501.0900 ####[facility] [address] [place], [address] Absolute Neut 4.9 X10 3/uL Normal 2.0-7.7 [facility] Comment on above: Performed By: #### L 100.0100, L500.4050, L501.0900 ####[facility] [address] [place], [address] Basophils/100 WBC (Bld) 0.3 % Normal 0-1 [facility] Comment on above: Performed By: #### L 100.0100, L500.4050, L501.0900 ####[facility] [address] [place], [address] Eosinophils/100 WBC (Bld) 1.4 % Normal 0-5 [facility] Comment on above: Performed By: #### L 100.0100, L500.4050, L501.0900 ####[facility] [address] [place], [address] Erythrocyte distribution width (RBC) [Ratio] 16.0 % High 11.6-14.6 [facility] Comment on above: Performed By: #### L 100.0100, L500.4050, L501.0900 ####[facility] [address] [place], [address] Hematocrit (Bld) [Volume fraction] 26.0 % Low 37-47 [facility] Comment on above: Performed By: #### L 100.0100, L500.4050, L501.0900 ####[facility] [address] [place], [address] Hemoglobin (Bld) [Mass/Vol] 8.2 g/dL Low 12.0-15.0 [facility] Comment on above: Performed By: #### L 100.0100, L500.4050, L501.0900 ####[facility] [address] [place], [address] IG% 1.100 High 0.0-0.9 [facility] Comment on above: Result Comment: IG% - Immature Granulocytes (promyelocytes, myelocytes andmetamyelocytes) > 1% indicates that a LEFT SHIFT is Present. Performed By: #### L 100.0100, L500.4050, L501.0900 ####[facility] [address] [place], [address] Lymphocytes/100 WBC (Bld) 14.0 % Low 19-41 [facility] Comment on above: Performed By: #### L 100.0100, L500.4050, L501.0900 ####[facility] [address] [place], [address] MCH (RBC) [Entitic mass] 22.7 pg Low 27.0-32.0 [facility] Comment on above: Performed By: #### L 100.0100, L500.4050, L501.0900 ####[facility] [address] [place], [address] MCHC (RBC) [Mass/Vol] 31.5 g/dL Low 32-36 [facility] Comment on above: Performed By: #### L 100.0100, L500.4050, L501.0900 ####[facility] [address] [place], [address] MCV (RBC) [Entitic vol] 72.0 fL Low 81-99 [facility] Comment on above: Performed By: #### L 100.0100, L500.4050, L501.0900 ####[facility] [address] [place], [address] Monocytes/100 WBC (Bld) 6.0 % Normal 0-10 [facility] Comment on above: Performed By: #### L 100.0100, L500.4050, L501.0900 ####[facility] [address] [place], [address] Neutrophils/100 WBC (Bld) 77.2 % High 47-70 [facility] Comment on above: Performed By: #### L 100.0100, L500.4050, L501.0900 ####[facility] [address] [place], [address] Nucleated RBC (Bld) [#/Vol] 0 10*3/uL Normal 0-5 [facility] Comment on above: Performed By: #### L 100.0100, L500.4050, L501.0900 ####[facility] [address] [place], [address] Platelet mean volume (Bld) [Entitic vol] 10.1 fL Normal 6.2-12.0 [facility] Comment on above: Performed By: #### L 100.0100, L500.4050, L501.0900 ####[facility] [address] [place], [address] Platelets (Bld) [#/Vol] 197 10*3/uL Normal 150-450 [facility] Comment on above: Performed By: #### L 100.0100, L500.4050, L501.0900 ####[facility] [address] [place], [address] RBC (Bld) [#/Vol] 3.61 10*6/uL Low 4.2-5.4 [facility] Comment on above: Performed By: #### L 100.0100, L500.4050, L501.0900 ####[facility] [address] [place], [address] RDW SD 41.0 fl Normal 35.1-43.9 [facility] Comment on above: Performed By: #### L 100.0100, L500.4050, L501.0900 ####[facility] [address] [place], [address] WBC (Bld) [#/Vol] 6.3 10*3/uL Normal 4.4-11.0 [facility] Comment on above: Performed By: #### L 100.0100, L500.4050, L501.0900 ####[facility] [address] [place], [address] Carbon dioxide, total [Moles /volume] in Central venous bloodOrdered By: Renetta Nielsen on 02-26-2025 CO2 [Moles/Vol] 20.9 mmol/L Low 21.0-32.0 [facility] Chloride assayOrdered By: Adam Nielsen on 02-26-2025 Chloride [Moles/Vol] 103 mmol/L 98-108 [facility] Comprehensive Metabolic Prof ilon 02-26-2025 Albumin [Mass/Vol] 3.0 g/dL Low 3.5-5.0 [facility] Comment on above: Performed By: #### L 100.0100, L500.4050, L501.0900 ####[facility] [address] [place], [address] Albumin/Globulin [Mass ratio] 0.9 {ratio} Normal 0.9-2.4 [facility] Comment on above: Performed By: #### L 100.0100, L500.4050, L501.0900 ####[facility] [address] [place], [address] ALK PHOS 136 U/L High 35-104 [facility] Comment on above: Performed By: #### L 100.0100, L500.4050, L501.0900 ####[facility] [address] [place], [address] ALT [Catalytic activity/Vol] 8 U/L Normal <=34 [facility] Comment on above: Performed By: #### L 100.0100, L500.4050, L501.0900 ####[facility] [address] [place], [address] AST [Catalytic activity/Vol] 14 U/L Normal <=31 [facility] Comment on above: Performed By: #### L 100.0100, L500.4050, L501.0900 ####[facility] [address] [place], [address] Bilirubin [Mass/Vol] 0.22 mg/dL Normal 0.00-1.30 [facility] Comment on above: Performed By: #### L 100.0100, L500.4050, L501.0900 ####[facility] [address] [place], [address] BUN/CRE 9.5 RATIO Low 10-20 [facility] Comment on above: Performed By: #### L 100.0100, L500.4050, L501.0900 ####[facility] [address] [place], [address] Calcium [Mass/Vol] 9.1 mg/dL Normal 7.6-11.0 [facility] Comment on above: Performed By: #### L 100.0100, L500.4050, L501.0900 ####[facility] [address] [place], [address] Chloride [Moles/Vol] 103 mmol/L Normal 98-108 [facility] Comment on above: Performed By: #### L 100.0100, L500.4050, L501.0900 ####[facility] [address] [place], [address] CO2 [Moles/Vol] 20.9 mmol/L Low 21.0-32.0 [facility] Comment on above: Performed By: #### L 100.0100, L500.4050, L501.0900 ####[facility] [address] [place], [address] Creatinine [Mass/Vol] 0.57 mg/dL Low 0.70-1.20 [facility] Comment on above: Performed By: #### L 100.0100, L500.4050, L501.0900 ####[facility] [address] [place], [address] GAP 10 Normal 5-15 [facility] Comment on above: Performed By: #### L 100.0100, L500.4050, L501.0900 ####[facility] [address] [place], [address] GFR/1.73 sq M.predicted among non-blacks MDRD (S/P/Bld) [Vol rate/Area] 126 mL/min/{1.73_m2} Normal >60 [facility] Comment on above: Result Comment: mL/m in/1.73m2 CKD-EPI Creatinine Equation (2020) Performed By: #### L 100.0100, L500.4050, L501.0900 ####[facility] [address] [place], [address] Globulin (S) [Mass/Vol] 3.4 g/dL Normal 2.2-4.2 [facility] Comment on above: Performed By: #### L 100.0100, L500.4050, L501.0900 ####[facility] [address] [place], [address] Glucose [Mass/Vol] 145 mg/dL High 70-99 [facility] Comment on above: Performed By: #### L 100.0100, L500.4050, L501.0900 ####[facility] [address] [place], [address] Potassium [Moles/Vol] 3.7 mmol/L Normal 3.3-5.1 [facility] Comment on above: Performed By: #### L 100.0100, L500.4050, L501.0900 ####[facility] [address] [place], [address] Sodium [Moles/Vol] 134 mmol/L Normal 133-145 [facility] Comment on above: Performed By: #### L 100.0100, L500.4050, L501.0900 ####[facility] [address] [place], [address] T PROT 6.4 g/dL Normal 5.9-8.4 [facility] Comment on above: Performed By: #### L 100.0100, L500.4050, L501.0900 ####[facility] [address] [place], [address] Urea nitrogen [Mass/Vol] 5 mg/dL Normal 4-19 [facility] Comment on above: Performed By: #### L 100.0100, L500.4050, L501.0900 ####[facility] [address] [place], [address] Eosinophil percentageOrdered By: Renetta Nielsen on 02-26-2025 Eosinophils/100 WBC (Bld) 1.4 % 0-5 [facility] Erythrocyte distribution wid th ratioOrdered By: Renetta Nielsen on 02-26-2025 Erythrocyte distribution width (RBC) [Ratio] 16.0 % High 11.6-14.6 [facility] Erythrocyte distribution wid th standard deviationOrdered By: Renetta Nielsen on 02-26-2025 Erythrocyte distribution width (RBC) [Ratio] 41.0 fl 35.1-43.9 [facility] Ferritinon 02-26-2025 Ferritin [Mass/Vol] 10 ng/mL Low 22-378 [facility] Comment on above: Performed By: #### L 503.6550, L503.6030, L503.0106 ####[facility] [address] [place], [address] Glomerular filtration rate ( GFR) estimation/1.73 sq m using serum, plasma, or whole bOrdered By: Renetta Nielsen on 02-26-2025 GFR/1.73 sq M.predicted among non-blacks MDRD (S/P/Bld) [Vol rate/Area] 126 mL/min/{1.73_m2} >60 [facility] Comment on above: mL/min/1.73m2 CKD-EP I Creatinine Equation (2020) Hematocrit Auto (Bld) [Volum e fraction]Ordered By: Renetta Nielsen on 02-26-2025 Hematocrit (Bld) [Volume fraction] 26.0 % Low 37-47 [facility] Hemoglobin measurementOrdere d By: Renetta Nielsen on 02-26-2025 Hemoglobin (Bld) [Mass/Vol] 8.2 g/dL Low 12.0-15.0 [facility] Immature granulocytes/100 WB C Auto (Bld)Ordered By: Renetta Hema on 02-26-2025 Immature granulocytes/100 WBC (Bld) 1.100 % High 0.0-0.9 [facility] Comment on above: IG% - Immature Granu locytes (promyelocytes, myelocytes and metamyelocytes) > 1% indicates that a LEFT SHIFT is Present. Iron measurement (mass/mass) Ordered By: Rose Marie Morales on 02-26-2025 Iron (Unsp spec) [Mass/Mass] 27 ug/dL Low 50-170 [facility] Iron+Iron Binding Capacityon 02-26-2025 TIBC 691 ug/dL High 250-450 [facility] Comment on above: Performed By: #### L 503.6550, L503.6030, L503.0106 ####[facility] [address] [place], [address] L3410.9992on 02-26-2025 [facility] Misc. COMMENT Normal . [facility] Comment on above: Order Comment: [id number] bile acids Result Comment: Test Ordered: [id number] Bile Acids, Fractionated LCMSUrsodeoxycholic Acids <0.10 umol/L ES Reference Range: .Reference Range:All Ages: <1.9Cholic Acids 3.4 [H ] umol/L ES Reference Range: .Reference Range:All Ages: <2.2Chenodeoxycholic Acids 2.0 umol/L ES Reference Range: .Reference Range:All Ages: <5.8Deoxycholic Acids <0.10 umol/L ES Reference Range: .Reference Range:All Ages: <3.3Total Bile Acids 5.4 umol/L ES Reference Range: .This test was developed and its performance characteristicsdetermined by [employer]. It has not been cleared or approvedby the Food and Drug Administration.Reference Range:All Ages: <9.2Performed at: [facility] [address] [place], [place] [id number] Director: Segundo Bartlett PhD, Phone: [phone] at: [employer] [address] [id number] Director: Magali Dill MD, Phone: [phone] AMENDED REPORT 02/26/25 1808 [facility]. previously reported as: COMMENTPerformed at: [facility] [address] [place], [place] [id number] Director: Segundo Bartlett PhD, Phone: [phone] Performed By: #### L 3410.9992, L500.4050, L100.0100 ####[facility] [address] [place], [address] Laboratory - Chemistry and C hemistry - challengeOrdered By: Renetta Nielsen on 02-26-2025 AST [Catalytic activity/Vol] 14 U/L <32 [facility] Glucose Ql (U) Negative [facility] Laboratory - UrinalysisOrder ed By: Renetta Nielsen on 02-26-2025 Protein Ql (U) Trace [facility] MCV (mean corpuscular volume ) determinationOrdered By: Renetta Nielsen on 02-26-2025 MCV (RBC) [Entitic vol] 72.0 fL Low 81-99 [facility] Mean corpuscular hemoglobin (MCH) determinationOrdered By: Renetta Nielsen on 02-26-2025 MCH (RBC) [Entitic mass] 22.7 pg Low 27.0-32.0 [facility] Mean corpuscular hemoglobin concentration (MCHC) determinationOrdered By: Renetta Nielsen on 02-26-2025 MCHC (RBC) [Mass/Vol] 31.5 g/dL Low 32-36 [facility] Mean platelet volume determi nationOrdered By: Renetta Nielsen on 02-26-2025 Platelet mean volume (Bld) [Entitic vol] 10.1 fL 6.2-12.0 [facility] Monocyte percentageOrdered B y: Renetta Nielsen on 02-26-2025 Monocytes/100 WBC (Bld) 6.0 % 0-10 [facility] Neutrophil percentageOrdered By: Renetta Nielsen on 02-26-2025 Neutrophils/100 WBC (Bld) 77.2 % High 47-70 [facility] No Panel InformationOrdered By: Rose Marie Morales on 02-26-2025 Unsaturated Iron Binding Capacity 664 ug/dL High 228-428 [facility] 664 ug/dL High 228-428 [facility] No Panel InformationOrdered By: Renetta Nielsen on 02-26-2025 14 U/L <32 [facility] Negative [facility] Trace [facility] Nucleated red blood cell per centageOrdered By: Renetta Nielsen on 02-26-2025 Nucleated RBC/100 WBC (Bld) [Ratio] 0 % 0-5 [facility] Film Reader Office Visit Reporton 02-26-2025 Film Reader Office Visit Report Normal [facility] Platelet countOrdered By: Adam Nielsen on 02-26-2025 Platelets (Bld) [#/Vol] 197 10*3/uL 150-450 [facility] Potassium measurement (mass/ volume)Ordered By: Renetta Nielsen on 02-26-2025 Potassium (Unsp spec) [Mass/Vol] 3.7 mmol/L 3.3-5.1 [facility] Protein+Creatinine Ratio,Uri neon 02-26-2025 PROT:CRE RATIO 219 mg/g CRE High 0-200 [facility] Comment on above: Performed By: #### L 100.0100, L500.4050, L501.0900 ####[facility] [address] [place], [address] Protein (U) [Mass/Vol] 23.7 mg/dL High 0.0-12.0 [facility] Comment on above: Performed By: #### L 100.0100, L500.4050, L501.0900 ####[facility] [address] [place], [address] UR CREAT 108.00 mg/dL Normal 28.00-217.00 [facility] Comment on above: Performed By: #### L 100.0100, L500.4050, L501.0900 ####[facility] [address] [place], [address] RBC Auto (Bld) [#/Vol]Ordere d By: Renetta Nielsen on 02-26-2025 RBC (Bld) [#/Vol] 3.61 10*6/uL Low 4.2-5.4 [facility] Random urine creatinine erica urement (mass/volume)Ordered By: Renetta Nielsen on 02-26-2025 Creatinine Unsp time (U) [Mass/Vol] 108.00 mg/dL 28.00-217.00 [facility] Serum creatinine measurement (mass/volume)Ordered By: Renetta Nielsen on 02-26-2025 Creatinine [Mass/Vol] 0.57 mg/dL Low 0.70-1.20 [facility] Serum globulin measurementOr dered By: Renetta Nielsen on 02-26-2025 Globulin (S) [Mass/Vol] 3.4 g/dL 2.2-4.2 [facility] Serum glucose measurement (m ass/volume)Ordered By: Renetta Nielsen on 02-26-2025 Glucose [Mass/Vol] 145 mg/dL High 70-99 [facility] Serum or plasma alanine montejo otransferase (ALT) measurementOrdered By: Renetta Nielsen on 02-26-2025 ALT [Catalytic activity/Vol] 8 U/L <35 [facility] Serum or plasma albumin erica urement (mass/volume)Ordered By: Renetta Nielsen on 02-26-2025 Albumin [Mass/Vol] 3.0 g/dL Low 3.5-5.0 [facility] Serum or plasma albumin/glob ulin mass ratioOrdered By: Renetta Nielsen on 02-26-2025 Albumin/Globulin [Mass ratio] 0.9 {ratio} 0.9-2.4 [facility] Serum or plasma alkaline juan a sphatase measurementOrdered By: Renetta Nielsen on 02-26-2025 ALP [Catalytic activity/Vol] 136 U/L High 35-104 [facility] Serum or plasma calcium erica urement (mass/volume)Ordered By: Renetta Nielsen on 02-26-2025 Calcium [Mass/Vol] 9.1 mg/dL 7.6-11.0 [facility] Serum or plasma ferritin isabel surement (mass/volume)Ordered By: Rose Marie Morales on 02-26-2025 Ferritin [Mass/Vol] 10 ng/mL Low 22-378 [facility] Serum or plasma iron saturat ion measurement (mass fraction)Ordered By: Rose Marie Morales on 02-26-2025 Iron saturation [Mass fraction] 3.9 % Low 13-59 [facility] Comment on above: Previous reported re sult: 4.0 %Edited by: MK on 02/26/25:1106 AMENDED REPORT 02/26/25 1106 IRON SATURATION previously reported as: 4.0 L % Serum or plasma urea nitroge n measurement (mass/volume)Ordered By: Renetta Nielsen on 02-26-2025 Urea nitrogen [Mass/Vol] 5 mg/dL 4-19 [facility] Sodium levelOrdered By: Norma Nielsen on 02-26-2025 Sodium [Moles/Vol] 134 mmol/L 133-145 [facility] Total proteinOrdered By: Taran Nielsen on 02-26-2025 Protein [Mass/Vol] 6.4 g/dL 5.9-8.4 [facility] Urine protein measurement (m ass/volume)Ordered By: Renetta Nielsen on 02-26-2025 Protein (U) [Mass/Vol] 23.7 mg/dL High 0.0-12.0 [facility] Urine protein/creatinine mas s ratioOrdered By: Renetta Nielsen on 02-26-2025 Protein/Creatinine (U) [Mass ratio] 219 mg/g CRE High 0-200 [facility] Vitamin B12on 02-26-2025 Cobalamin (Vitamin B12) [Mass/Vol] 160 pg/mL Low 180-914 [facility] Comment on above: Performed By: #### L 503.6550, L503.6030, L503.0106 ####[facility] [address] [place], [place], [address] Vitamin B12 ser/plasOrdered By: Rose Marie Morales on 02-26-2025 Cobalamin (Vitamin B12) [Mass/Vol] 160 pg/mL Low 180-914 [facility] White blood cell (WBC) count Ordered By: Renetta Nielsen on 02-26-2025 WBC (Bld) [#/Vol] 6.3 10*3/uL 4.4-11.0 [facility] OB Biophysical Prof W/O NSTo n 02-23-2025 OB Biophysical Prof W/O NST Normal [facility] L3410.9992on 02-20-2025 [facility] Misc. COMMENT Normal . [facility] Comment on above: Order Comment: Comme nts: bile acids total, [id number] bile acids Result Comment: Test Ordered: [id number] Bile Acids, Fractionated LCMSUrsodeoxycholic Acids <0.10 umol/L ES Reference Range: .Reference Range:All Ages: <1.9Cholic Acids 2.7 [H ] umol/L ES Reference Range: .Reference Range:All Ages: <2.2Chenodeoxycholic Acids 1.8 umol/L ES Reference Range: .Reference Range:All Ages: <5.8Deoxycholic Acids <0.10 umol/L ES Reference Range: .Reference Range:All Ages: <3.3Total Bile Acids 4.5 umol/L ES Reference Range: .This test was developed and its performance characteristicsdetermined by [facility]. It has not been cleared or approvedby the Food and Drug Administration.Reference Range:All Ages: <9.2Performed at: [facility] [employer] [address] [id number] Director: Magali Dill MD, Phone: [phone] at: [address] [id number] Director: Segundo Bartlett PhD, Phone: [phone] Performed By: #### L 3410.9992 ####[facility] [address] [place], [place], [id number] Absolute lymphocyte countOrd ered By: Rose Marie Morales on 02-19-2025 Lymphocytes Auto (Unsp spec) [#/Vol] 0.92 10*3/uL 0.83-4.51 [facility] Absolute neutrophil countOrd ered By: Rose Marie Morales on 02-19-2025 Neutrophils (Bld) [#/Vol] 5.2 10*3/uL 2.0-7.7 [facility] Anion gap in Serum or Plasma Ordered By: Roes Marie Morales on 02-19-2025 Anion gap [Moles/Vol] 14 mmol/L 5-15 [facility] Automated lymphocyte count a s percentage of total leukocytesOrdered By: Rose Marie Morales on 02-19-2025 Lymphocytes/100 WBC Auto (Unsp spec) 13.7 % Low 19-41 [facility] BUN/creatinine ratioOrdered By: Rose Marie Morales on 02-19-2025 Urea nitrogen/Creatinine [Mass ratio] 6.3 mg/mg Low 10-20 [facility] Basophil percentageOrdered B y: Rose Marie Morales on 02-19-2025 Basophils/100 WBC (Bld) 0.3 % 0-1 [facility] Bilirubin, totalOrdered By: Rose Marie Morales on 02-19-2025 Bilirubin [Mass/Vol] 0.18 mg/dL 0.00-1.30 [facility] CBC W/Diff, Automatedon 01-30 Absolute Lymph 0.92 X10 3/uL Normal 0.83-4.51 [facility] Comment on above: Performed By: #### L 3410.9992, L500.4050, L100.0100 ####[facility] [address] [place], [address] Absolute Neut 5.2 X10 3/uL Normal 2.0-7.7 [facility] Comment on above: Performed By: #### L 3410.9992, L500.4050, L100.0100 ####[facility] [address] [place], [address] Basophils/100 WBC (Bld) 0.3 % Normal 0-1 [facility] Comment on above: Performed By: #### L 3410.9992, L500.4050, L100.0100 ####[facility] [address] [place], [address] Eosinophils/100 WBC (Bld) 1.3 % Normal 0-5 [facility] Comment on above: Performed By: #### L 3410.9992, L500.4050, L100.0100 ####[facility] [address] [place], [address] Erythrocyte distribution width (RBC) [Ratio] 16.4 % High 11.6-14.6 [facility] Comment on above: Performed By: #### L 3410.9992, L500.4050, L100.0100 ####[facility] [address] [place], [address] Hematocrit (Bld) [Volume fraction] 25.5 % Low 37-47 [facility] Comment on above: Performed By: #### L 3410.9992, L500.4050, L100.0100 ####[facility] [address] [place], [address] Hemoglobin (Bld) [Mass/Vol] 8.0 g/dL Low 12.0-15.0 [facility] Comment on above: Performed By: #### L 3410.9992, L500.4050, L100.0100 ####[facility] [address] [place], [address] IG% 1.000 High 0.0-0.9 [facility] Comment on above: Result Comment: IG% - Immature Granulocytes (promyelocytes, myelocytes andmetamyelocytes) > 1% indicates that a LEFT SHIFT is Present. Performed By: #### L 3410.9992, L500.4050, L100.0100 ####[facility] [address] [place], [address] Lymphocytes/100 WBC (Bld) 13.7 % Low 19-41 [facility] Comment on above: Performed By: #### L 3410.9992, L500.4050, L100.0100 ####[facility] [address] [place], [address] MCH (RBC) [Entitic mass] 22.9 pg Low 27.0-32.0 [facility] Comment on above: Performed By: #### L 3410.9992, L500.4050, L100.0100 ####[facility] [address] [place], [address] MCHC (RBC) [Mass/Vol] 31.4 g/dL Low 32-36 [facility] Comment on above: Performed By: #### L 3410.9992, L500.4050, L100.0100 ####[facility] [address] [place], [address] MCV (RBC) [Entitic vol] 72.9 fL Low 81-99 [facility] Comment on above: Performed By: #### L 3410.9992, L500.4050, L100.0100 ####[facility] [address] [place], [address] Monocytes/100 WBC (Bld) 6.7 % Normal 0-10 [facility] Comment on above: Performed By: #### L 3410.9992, L500.4050, L100.0100 ####[facility] [address] [place], [address] Neutrophils/100 WBC (Bld) 77.0 % High 47-70 [facility] Comment on above: Performed By: #### L 3410.9992, L500.4050, L100.0100 ####[facility] [address] [place], [address] Nucleated RBC (Bld) [#/Vol] 0.3 10*3/uL Normal 0-5 [facility] Comment on above: Performed By: #### L 3410.9992, L500.4050, L100.0100 ####[facility] [address] [place], [address] Platelet mean volume (Bld) [Entitic vol] 10.8 fL Normal 6.2-12.0 [facility] Comment on above: Performed By: #### L 3410.9992, L500.4050, L100.0100 ####[facility] [address] [place], [address] Platelets (Bld) [#/Vol] 205 10*3/uL Normal 150-450 [facility] Comment on above: Performed By: #### L 3410.9992, L500.4050, L100.0100 ####[facility] [address] [place], [address] RBC (Bld) [#/Vol] 3.50 10*6/uL Low 4.2-5.4 [facility] Comment on above: Performed By: #### L 3410.9992, L500.4050, L100.0100 ####[facility] [address] [place], [address] RDW SD 42.6 fl Normal 35.1-43.9 [facility] Comment on above: Performed By: #### L 3410.9992, L500.4050, L100.0100 ####[facility] [address] [place], [address] WBC (Bld) [#/Vol] 6.7 10*3/uL Normal 4.4-11.0 [facility] Comment on above: Performed By: #### L 3410.9992, L500.4050, L100.0100 ####[facility] [address] [place], [address] Carbon dioxide, total [Moles /volume] in Central venous bloodOrdered By: Rose Marie Morales on 02-19-2025 CO2 [Moles/Vol] 20.4 mmol/L Low 21.0-32.0 [facility] Chloride assayOrdered By: Denia Morales on 02-19-2025 Chloride [Moles/Vol] 102 mmol/L 98-108 [facility] Comprehensive Metabolic Prof ilon 02-19-2025 Albumin [Mass/Vol] 3.0 g/dL Low 3.5-5.0 [facility] Comment on above: Performed By: #### L 3410.9992, L500.4050, L100.0100 ####[facility] [address] [place], [address] Albumin/Globulin [Mass ratio] 0.9 {ratio} Normal 0.9-2.4 [facility] Comment on above: Performed By: #### L 3410.9992, L500.4050, L100.0100 ####[facility] [address] [place], [address] ALK PHOS 131 U/L High 35-104 [facility] Comment on above: Performed By: #### L 3410.9992, L500.4050, L100.0100 ####[facility] [address] [place], [address] ALT [Catalytic activity/Vol] 11 U/L Normal <=34 [facility] Comment on above: Performed By: #### L 3410.9992, L500.4050, L100.0100 ####[facility] [address] [place], [address] AST [Catalytic activity/Vol] 16 U/L Normal <=31 [facility] Comment on above: Performed By: #### L 3410.9992, L500.4050, L100.0100 ####[facility] [address] [place], [address] Bilirubin [Mass/Vol] 0.18 mg/dL Normal 0.00-1.30 [facility] Comment on above: Performed By: #### L 3410.9992, L500.4050, L100.0100 ####[facility] [address] [place], [address] BUN/CRE 6.3 RATIO Low 10-20 [facility] Comment on above: Performed By: #### L 3410.9992, L500.4050, L100.0100 ####[facility] [address] [place], [address] Calcium [Mass/Vol] 9.0 mg/dL Normal 7.6-11.0 [facility] Comment on above: Performed By: #### L 3410.9992, L500.4050, L100.0100 ####[facility] [address] [place], [address] Chloride [Moles/Vol] 102 mmol/L Normal 98-108 [facility] Comment on above: Performed By: #### L 3410.9992, L500.4050, L100.0100 ####[facility] [address] [place], [address] CO2 [Moles/Vol] 20.4 mmol/L Low 21.0-32.0 [facility] Comment on above: Performed By: #### L 3410.9992, L500.4050, L100.0100 ####[facility] [address] [place], [address] Creatinine [Mass/Vol] 0.56 mg/dL Low 0.70-1.20 [facility] Comment on above: Performed By: #### L 3410.9992, L500.4050, L100.0100 ####[facility] [address] [place], [address] GAP 14 Normal 5-15 [facility] Comment on above: Performed By: #### L 3410.9992, L500.4050, L100.0100 ####[facility] [address] [place], [address] GFR/1.73 sq M.predicted among non-blacks MDRD (S/P/Bld) [Vol rate/Area] 126 mL/min/{1.73_m2} Normal >60 [facility] Comment on above: Result Comment: mL/m in/1.73m2 CKD-EPI Creatinine Equation (2020) Performed By: #### L 3410.9992, L500.4050, L100.0100 ####[facility] [address] [place], [address] Globulin (S) [Mass/Vol] 3.2 g/dL Normal 2.2-4.2 [facility] Comment on above: Performed By: #### L 3410.9992, L500.4050, L100.0100 ####[facility] [address] [place], [address] Glucose [Mass/Vol] 179 mg/dL High 70-99 [facility] Comment on above: Performed By: #### L 3410.9992, L500.4050, L100.0100 ####[facility] [address] [place], [address] Potassium [Moles/Vol] 3.4 mmol/L Normal 3.3-5.1 [facility] Comment on above: Performed By: #### L 3410.9992, L500.4050, L100.0100 ####[facility] [address] [place], [address] Sodium [Moles/Vol] 136 mmol/L Normal 133-145 [facility] Comment on above: Performed By: #### L 3410.9992, L500.4050, L100.0100 ####[facility] [address] [place], [address] T PROT 6.3 g/dL Normal 5.9-8.4 [facility] Comment on above: Performed By: #### L 3410.9992, L500.4050, L100.0100 ####[facility] [address] [place], [place], [address] Urea nitrogen [Mass/Vol] 4 mg/dL Normal 4-19 [facility] Comment on above: Performed By: #### L 3410.9992, L500.4050, L100.0100 ####[facility] [address] [place], [place], [id number] Eosinophil percentageOrdered By: Rose Marie Morales on 02-19-2025 Eosinophils/100 WBC (Bld) 1.3 % 0-5 [facility] Erythrocyte distribution wid th ratioOrdered By: Rose Marie Morales on 02-19-2025 Erythrocyte distribution width (RBC) [Ratio] 16.4 % High 11.6-14.6 [facility] Erythrocyte distribution wid th standard deviationOrdered By: Rose Marie Morales on 02-19-2025 Erythrocyte distribution width (RBC) [Ratio] 42.6 fl 35.1-43.9 [facility] Glomerular filtration rate ( GFR) estimation/1.73 sq m using serum, plasma, or whole bOrdered By: Rose Marie Morales on 02-19-2025 GFR/1.73 sq M.predicted among non-blacks MDRD (S/P/Bld) [Vol rate/Area] 126 mL/min/{1.73_m2} >60 [facility] Comment on above: mL/min/1.73m2 CKD-EP I Creatinine Equation (2020) Hematocrit Auto (Bld) [Volum e fraction]Ordered By: Rose Marie Morales on 02-19-2025 Hematocrit (Bld) [Volume fraction] 25.5 % Low 37-47 [facility] Hemoglobin measurementOrdere d By: Rose Marie Morales on 02-19-2025 Hemoglobin (Bld) [Mass/Vol] 8.0 g/dL Low 12.0-15.0 [facility] Immature granulocytes/100 WB C Auto (Bld)Ordered By: Rose Marie Morales on 02-19-2025 Immature granulocytes/100 WBC (Bld) 1.000 % High 0.0-0.9 [facility] Comment on above: IG% - Immature Granu locytes (promyelocytes, myelocytes and metamyelocytes) > 1% indicates that a LEFT SHIFT is Present. Laboratory - Chemistry and C hemistry - challengeOrdered By: Rose Marie Morales on 02-19-2025 AST [Catalytic activity/Vol] 16 U/L <32 [facility] Glucose Ql (U) 250 g/dL [facility] Laboratory - UrinalysisOrder ed By: Rose Marie Morales on 02-19-2025 Protein Ql (U) Trace [facility] MCV (mean corpuscular volume ) determinationOrdered By: Rose Marie Morales on 02-19-2025 MCV (RBC) [Entitic vol] 72.9 fL Low 81-99 [facility] Mean corpuscular hemoglobin (MCH) determinationOrdered By: Rose Marie Morales on 02-19-2025 MCH (RBC) [Entitic mass] 22.9 pg Low 27.0-32.0 [facility] Mean corpuscular hemoglobin concentration (MCHC) determinationOrdered By: Rose Marie Morales on 02-19-2025 MCHC (RBC) [Mass/Vol] 31.4 g/dL Low 32-36 [facility] Mean platelet volume determi nationOrdered By: Rose Marie Morales on 02-19-2025 Platelet mean volume (Bld) [Entitic vol] 10.8 fL 6.2-12.0 [facility] Monocyte percentageOrdered B y: Rose Marie Morales on 02-19-2025 Monocytes/100 WBC (Bld) 6.7 % 0-10 [facility] Neutrophil percentageOrdered By: Rose Marie Morales on 02-19-2025 Neutrophils/100 WBC (Bld) 77.0 % High 47-70 [facility] No Panel InformationOrdered By: Rose Marie Morales on 02-19-2025 16 U/L <32 [facility] 250 g/dL [facility] Trace [facility] Nucleated red blood cell per centageOrdered By: Rose Marie Morales on 02-19-2025 Nucleated RBC/100 WBC (Bld) [Ratio] 0.3 % 0-5 [facility] [employer] Office Visit Reporton 02-19-2025 [employer] Reader Office Visit Report Normal [facility] Platelet countOrdered By: Denia Morales on 02-19-2025 Platelets (Bld) [#/Vol] 205 10*3/uL 150-450 [facility] Potassium measurement (mass/ volume)Ordered By: Rose Marie Morales on 02-19-2025 Potassium (Unsp spec) [Mass/Vol] 3.4 mmol/L 3.3-5.1 [facility] RBC Auto (Bld) [#/Vol]Ordere d By: Rose Marie Morales on 02-19-2025 RBC (Bld) [#/Vol] 3.50 10*6/uL Low 4.2-5.4 [facility] Serum creatinine measurement (mass/volume)Ordered By: Rose Marie Morales on 02-19-2025 Creatinine [Mass/Vol] 0.56 mg/dL Low 0.70-1.20 [facility] Serum globulin measurementOr dered By: Rose Marie Morales on 02-19-2025 Globulin (S) [Mass/Vol] 3.2 g/dL 2.2-4.2 [facility] Serum glucose measurement (m ass/volume)Ordered By: Rose Marie Morales on 02-19-2025 Glucose [Mass/Vol] 179 mg/dL High 70-99 [facility] Serum or plasma alanine montejo otransferase (ALT) measurementOrdered By: Rose Marie Morales on 02-19-2025 ALT [Catalytic activity/Vol] 11 U/L <35 [facility] Serum or plasma albumin erica urement (mass/volume)Ordered By: Rose Marie Morales on 02-19-2025 Albumin [Mass/Vol] 3.0 g/dL Low 3.5-5.0 [facility] Serum or plasma albumin/glob ulin mass ratioOrdered By: Rose Marie Morales on 02-19-2025 Albumin/Globulin [Mass ratio] 0.9 {ratio} 0.9-2.4 [facility] Serum or plasma alkaline juan a sphatase measurementOrdered By: Rose Marie Morales on 02-19-2025 ALP [Catalytic activity/Vol] 131 U/L High 35-104 [facility] Serum or plasma calcium erica urement (mass/volume)Ordered By: Rose Marie Morales on 02-19-2025 Calcium [Mass/Vol] 9.0 mg/dL 7.6-11.0 [facility] Serum or plasma urea nitroge n measurement (mass/volume)Ordered By: Rose Marie Morales on 02-19-2025 Urea nitrogen [Mass/Vol] 4 mg/dL 4- [facility] Sodium levelOrdered By: Sergio viet Carmen on 02-19-2025 Sodium [Moles/Vol] 136 mmol/L 133-145 [facility] Total proteinOrdered By: Johnathan Morales on 02-19-2025 Protein [Mass/Vol] 6.3 g/dL 5.9-8.4 [facility] White blood cell (WBC) count Ordered By: Rose Marie Morales on 02-19-2025 WBC (Bld) [#/Vol] 6.7 10*3/uL 4.4-11.0 [facility] OB Biophysical Prof W/O NSTo n 02-16-2025 OB Biophysical Prof W/O NST Normal [facility] Laboratory - Chemistry and C hemistry - challengeOrdered By: Chey Adair on 02-10-2025 Glucose Ql (U) Negative [facility] Laboratory - UrinalysisOrder ed By: Chey Adair on 02-10-2025 Protein Ql (U) Negative [facility] No Panel InformationOrdered By: Chey Adair on 02-10-2025 Negative [facility] [employer] Office Visit Reporton 02-10-2025 Film Reader Office Visit Report Normal [facility] OB Biophysical Prof W/O NSTo n 02-09-2025 OB Biophysical Prof W/O NST Normal [facility] Laboratory - Chemistry and C hemistry - challengeOrdered By: Renetta Nielsen on 02-02-2025 Glucose Ql (U) Negative [facility] Laboratory - UrinalysisOrder ed By: Renetta Nielsen on 02-02-2025 Protein Ql (U) Negative [facility] No Panel InformationOrdered By: Renetta Nielsen on 02-02-2025 Negative [facility] OB Biophysical Prof W/O NSTo n 02-02-2025 OB Biophysical Prof W/O NST Normal [facility] OB Limited With Biometricson 02-02-2025 OB Limited With Biometrics Normal [facility] Film Reader Office Visit Reporton 02-02-2025 Film Reader Office Visit Report Normal [facility] Laboratory - Chemistry and C hemistry - challengeOrdered By: Rose Marie Morales on 01-19-2025 Glucose Ql (U) Negative [facility] Laboratory - UrinalysisOrder ed By: Rose Marie Morales on 01-19-2025 Protein Ql (U) Negative [facility] No Panel InformationOrdered By: Rose Marie Morales on 01-19-2025 Negative [facility] Film Reader Office Visit Reporton 01-19-2025 Film Reader Office Visit Report Normal [facility] Urine Cultureon 01-14-2025 URC Mixed Gram Positive Organisms Oxbow Count 50,000-80,000 MIXC Mixed contaminants. Submit a new specimen if indicated. Normal [facility] Comment on above: Performed By: #### M 100.2200 ####[facility] [address] [place], [place], [id number] Bilirubin Test strip Ql (U)O rdered By: Rose Marie Morales on 01-11-2025 Bilirubin Ql (U) Negative Negative [facility] Ketones Test strip Ql (U)Ord ered By: Rose Marie Morales on 01-11-2025 Ketones Ql (U) 5 mg/dl High Negative [facility] Nitrite Test strip Ql (U)Ord ered By: Rose Marie Morales on 01-11-2025 Nitrite Ql (U) Negative Negative [facility] OB Triage Progress Noteon OB Triage Progress Note Normal [facility] Protein Test strip Ql (U)Ord ered By: Rose Marie Morales on 01-11-2025 Protein Ql (U) 30 mg/dl High Negative [facility] Urinalysis, Routine (Dipstic k)on 01-11-2025 BILIRUBIN URINE Negative Normal Negative [facility] Comment on above: Order Comment: KATELYNN HARMONOR TO SPECIFY Performed By: #### L 400 ####[facility] [address] [place], [place], [id number] Clarity (U) Sl. Cloudy Normal Clear [facility] Comment on above: Order Comment: COLLE CTOR TO SPECIFY Performed By: #### L 400.2010 ####[facility] [address] [place], [address] Color (U) Yellow Normal Yellow [facility] Comment on above: Order Comment: COLLE CTOR TO SPECIFY Performed By: #### L 400.2010 ####[facility] [address] [place], [address] GLUCOSE, UR Normal Normal Normal [facility] Comment on above: Order Comment: COLLE CTOR TO SPECIFY Performed By: #### L 400.2010 ####[facility] [address] [place], [address] KETONE UR 5 mg/dl Abnormal Negative [facility] Comment on above: Order Comment: COLLE CTOR TO SPECIFY Performed By: #### L 400.2010 ####[facility] [address] [place], [address] LEUK ESTERASE 500 /ul Abnormal Negative [facility] Comment on above: Order Comment: COLLE CTOR TO SPECIFY Performed By: #### L 400.2010 ####[facility] [address] [place], [address] Nitrite Ql (U) Negative Normal Negative [facility] Comment on above: Order Comment: COLLE CTOR TO SPECIFY Performed By: #### L 400.2010 ####[facility] [address] [place], [address] OCCULT BLOOD-UR 10 /ul Abnormal Negative [facility] Comment on above: Order Comment: COLLE CTOR TO SPECIFY Performed By: #### L 400.2010 ####[facility] [address] [place], [address] pH UR 6.0 Normal 5.0 - 8.0 [facility] Comment on above: Order Comment: COLLE CTOR TO SPECIFY Performed By: #### L 400.2010 ####[facility] [address] [place], [address] PROT DIPSTX 30 mg/dl Abnormal Negative [facility] Comment on above: Order Comment: KATELYNN CTOR TO SPECIFY Performed By: #### L 400.2010 ####[facility] [address] [place], [address] SP.GR. DIPSTX 1.025 Normal 1.002-1.030 [facility] Comment on above: Order Comment: KATELYNN CTOR TO SPECIFY Performed By: #### L 400.2010 ####[facility] [address] [place], [address] UROBILI Normal Normal Normal [facility] Comment on above: Order Comment: KATELYNN CTOR TO SPECIFY Performed By: #### L 400.2010 ####[facility] [address] [place], [place], [id number] Urine clarityOrdered By: Johnathan Morales on 01-11-2025 Clarity (U) Sl. Cloudy Clear [facility] Urine color determinationOrd ered By: Rose Marie Morales on 01-11-2025 Color (U) Yellow Yellow [facility] Urine cultureOrdered By: Johnathan Morales on 01-11-2025 Bacteria identified Cx Nom (U) Positive Abnormal [facility] Urine glucose detectionOrder ed By: Rose Marie Morales on 01-11-2025 Glucose Ql (U) Normal mg/dl Normal [facility] Urine leukocyte esterase det ection by dipstickOrdered By: Rose Marie Mroales on 01-11-2025 Leukocyte esterase Test strip Ql (U) 500 /ul High Negative [facility] Urine pHOrdered By: Rose Marie lofton on 01-11-2025 pH (U) 6.0 [pH] 5.0 - 8.0 [facility] Urine specific gravity measu rementOrdered By: Rose Marie Morales on 01-11-2025 Specific gravity (U) [Rel density] 1.025 1.002-1.030 [facility] Urine urobilinogen measureme ntOrdered By: Rose Marie Morales on 01-11-2025 Urobilinogen Ql (U) Normal mg/dl Normal [facility] Laboratory - Chemistry and C hemistry - challengeOrdered By: Parvin Curry on 01-06-2025 Glucose Ql (U) Negative [facility] Laboratory - UrinalysisOrder ed By: Parvin Curry on 01-06-2025 Protein Ql (U) Trace [facility] No Panel InformationOrdered By: Parvin Curry on 01-06-2025 Negative [facility] Trace [facility] Film Reader Office Visit Reporton 01-06-2025 Film Reader Office Visit Report Normal [facility] Absolute lymphocyte countOrd ered By: Chey Adair on 01-04-2025 Lymphocytes Auto (Unsp spec) [#/Vol] 1.14 10*3/uL 0.83-4.51 [facility] Absolute neutrophil countOrd ered By: Chey Adair on 01-04-2025 Neutrophils (Bld) [#/Vol] 7.8 10*3/uL High 2.0-7.7 [facility] Automated lymphocyte count a s percentage of total leukocytesOrdered By: Chey Adair on 01-04-2025 Lymphocytes/100 WBC Auto (Unsp spec) 12.0 % Low 19-41 [facility] Basophil percentageOrdered B y: Chey Adair on 01-04-2025 Basophils/100 WBC (Bld) 0.3 % 0-1 [facility] CBC W/Diff, Automatedon Absolute Lymph 1.14 X10 3/uL Normal 0.83-4.51 [facility] Comment on above: Performed By: #### L 509.8002, L503.6550, L503.6030, L100.0100, L501.0250, L3890.6006 ####[facility] [address] [place], [place], [id number] Absolute Neut 7.8 X10 3/uL High 2.0-7.7 [facility] Comment on above: Performed By: #### L 509.8002, L503.6550, L503.6030, L100.0100, L501.0250, L3890.6006 ####[facility] [address] [place], [address] Basophils/100 WBC (Bld) 0.3 % Normal 0-1 [facility] Comment on above: Performed By: #### L 509.8002, L503.6550, L503.6030, L100.0100, L501.0250, L3890.6006 ####[facility] [address] [place], [address] Eosinophils/100 WBC (Bld) 1.5 % Normal 0-5 [facility] Comment on above: Performed By: #### L 509.8002, L503.6550, L503.6030, L100.0100, L501.0250, L3890.6006 ####[facility] [address] [place], [address] Erythrocyte distribution width (RBC) [Ratio] 17.2 % High 11.6-14.6 [facility] Comment on above: Performed By: #### L 509.8002, L503.6550, L503.6030, L100.0100, L501.0250, L3890.6006 ####[facility] [address] [place], [address] Hematocrit (Bld) [Volume fraction] 26.6 % Low 37-47 [facility] Comment on above: Performed By: #### L 509.8002, L503.6550, L503.6030, L100.0100, L501.0250, L3890.6006 ####[facility] [address] [place], [address] Hemoglobin (Bld) [Mass/Vol] 8.4 g/dL Low 12.0-15.0 [facility] Comment on above: Performed By: #### L 509.8002, L503.6550, L503.6030, L100.0100, L501.0250, L3890.6006 ####[facility] [address] [place], [address] IG% 0.800 Normal 0.0-0.9 [facility] Comment on above: Result Comment: IG% - Immature Granulocytes (promyelocytes, myelocytes andmetamyelocytes) > 1% indicates that a LEFT SHIFT is Present. Performed By: #### L 509.8002, L503.6550, L503.6030, L100.0100, L501.0250, L3890.6006 ####[facility] [address] [place], [address] Lymphocytes/100 WBC (Bld) 12.0 % Low 19-41 [facility] Comment on above: Performed By: #### L 509.8002, L503.6550, L503.6030, L100.0100, L501.0250, L3890.6006 ####[facility] [address] [place], [address] MCH (RBC) [Entitic mass] 23.7 pg Low 27.0-32.0 [facility] Comment on above: Performed By: #### L 509.8002, L503.6550, L503.6030, L100.0100, L501.0250, L3890.6006 ####[facility] [address] [place], [address] MCHC (RBC) [Mass/Vol] 31.6 g/dL Low 32-36 [facility] Comment on above: Performed By: #### L 509.8002, L503.6550, L503.6030, L100.0100, L501.0250, L3890.6006 ####[facility] [address] [place], [address] MCV (RBC) [Entitic vol] 74.9 fL Low 81-99 [facility] Comment on above: Performed By: #### L 509.8002, L503.6550, L503.6030, L100.0100, L501.0250, L3890.6006 ####[facility] [address] [place], [address] Monocytes/100 WBC (Bld) 3.5 % Normal 0-10 [facility] Comment on above: Performed By: #### L 509.8002, L503.6550, L503.6030, L100.0100, L501.0250, L3890.6006 ####[facility] [address] [place], [address] Neutrophils/100 WBC (Bld) 81.9 % High 47-70 [facility] Comment on above: Performed By: #### L 509.8002, L503.6550, L503.6030, L100.0100, L501.0250, L3890.6006 ####[facility] [address] [place], [address] Nucleated RBC (Bld) [#/Vol] 0 10*3/uL Normal 0-5 [facility] Comment on above: Performed By: #### L 509.8002, L503.6550, L503.6030, L100.0100, L501.0250, L3890.6006 ####[facility] [address] [place], [address] Platelet mean volume (Bld) [Entitic vol] 10.0 fL Normal 6.2-12.0 [facility] Comment on above: Performed By: #### L 509.8002, L503.6550, L503.6030, L100.0100, L501.0250, L3890.6006 ####[facility] [address] [place], [address] Platelets (Bld) [#/Vol] 266 10*3/uL Normal 150-450 [facility] Comment on above: Performed By: #### L 509.8002, L503.6550, L503.6030, L100.0100, L501.0250, L3890.6006 ####[facility] [address] [place], [address] RBC (Bld) [#/Vol] 3.55 10*6/uL Low 4.2-5.4 [facility] Comment on above: Performed By: #### L 509.8002, L503.6550, L503.6030, L100.0100, L501.0250, L3890.6006 ####[facility] [address] [place], [address] RDW SD 47.8 fl High 35.1-43.9 [facility] Comment on above: Performed By: #### L 509.8002, L503.6550, L503.6030, L100.0100, L501.0250, L3890.6006 ####[facility] [address] [place], [address] WBC (Bld) [#/Vol] 9.5 10*3/uL Normal 4.4-11.0 [facility] Comment on above: Performed By: #### L 509.8002, L503.6550, L503.6030, L100.0100, L501.0250, L3890.6006 ####[facility] [address] [place], [address] Eosinophil percentageOrdered By: Chey Adair on 01-04-2025 Eosinophils/100 WBC (Bld) 1.5 % 0-5 [facility] Erythrocyte distribution wid th ratioOrdered By: Chey Adair on 01-04-2025 Erythrocyte distribution width (RBC) [Ratio] 17.2 % High 11.6-14.6 [facility] Erythrocyte distribution wid th standard deviationOrdered By: Chey Adair on 01-04-2025 Erythrocyte distribution width (RBC) [Ratio] 47.8 fl High 35.1-43.9 [facility] Ferritinon 01-04-2025 Ferritin [Mass/Vol] 6 ng/mL Low 22-378 [facility] Comment on above: Performed By: #### L 509.8002, L503.6550, L503.6030, L100.0100, L501.0250, L3890.6006 ####[facility] [address] [place], [place], [id number] Glucose Challenge Gest 1H 50 carmen 01-04-2025 GLU GEST 50g 1H 210 mg/dL High 70-140 [facility] Comment on above: Performed By: #### L 509.8002, L503.6550, L503.6030, L100.0100, L501.0250, L3890.6006 ####[facility] [address], [address] Glucose measurement at 2 niko rs post-dose gestational glucose tolerance testOrdered By: Chey Adair on 01-04-2025 Glucose [Mass/Vol] 210 mg/dL High 70-140 [facility] HIVon 01-04-2025 HIV Non-Reactive Normal Nonreactive [facility] Comment on above: Result Comment: Non- ReactiveReactiveRepeatedly reactive samples must be confirmed according [facility] recommended confirmatory algorithms. The subresults foreither HIVAG or AHIV can be used as an aid in the selectionof the confirmation algorithm for reactive samples.Send out specimens with Reactive results to [facility] forconfirmation.Order the HIV antibody detection and differentiation:lc#[id number] Performed By: #### L 509.8002, L503.6550, L503.6030, L100.0100, L501.0250, L3890.6006 ####[facility] [address] [place], [place], [id number] Hematocrit Auto (Bld) [Volum e fraction]Ordered By: Chey Adair on 01-04-2025 Hematocrit (Bld) [Volume fraction] 26.6 % Low 37-47 [facility] Hemoglobin measurementOrdere d By: Chey Adair on 01-04-2025 Hemoglobin (Bld) [Mass/Vol] 8.4 g/dL Low 12.0-15.0 [facility] Immature granulocytes/100 WB C Auto (Bld)Ordered By: Chey Adair on 01-04-2025 Immature granulocytes/100 WBC (Bld) 0.800 % 0.0-0.9 [facility] Comment on above: IG% - Immature Granu locytes (promyelocytes, myelocytes and metamyelocytes) > 1% indicates that a LEFT SHIFT is Present. Iron measurement (mass/mass) Ordered By: Chey Adair on 01-04-2025 Iron (Unsp spec) [Mass/Mass] 23 ug/dL Low 50-170 [facility] Iron+Iron Binding Capacityon 01-04-2025 TIBC 514 ug/dL High 250-450 [facility] Comment on above: Performed By: #### L 509.8002, L503.6550, L503.6030, L100.0100, L501.0250, L3890.6006 ####[facility] [address] [place], [place], [id number] MCV (mean corpuscular volume ) determinationOrdered By: Chey Adair on 01-04-2025 MCV (RBC) [Entitic vol] 74.9 fL Low 81-99 [facility] Mean corpuscular hemoglobin (MCH) determinationOrdered By: Chey Adair on 01-04-2025 MCH (RBC) [Entitic mass] 23.7 pg Low 27.0-32.0 [facility] Mean corpuscular hemoglobin concentration (MCHC) determinationOrdered By: Chey Adair on 01-04-2025 MCHC (RBC) [Mass/Vol] 31.6 g/dL Low 32-36 [facility] Mean platelet volume determi nationOrdered By: Chey Adair on 01-04-2025 Platelet mean volume (Bld) [Entitic vol] 10.0 fL 6.2-12.0 [facility] Monocyte percentageOrdered B y: Chey Adair on 01-04-2025 Monocytes/100 WBC (Bld) 3.5 % 0-10 [facility] Neutrophil percentageOrdered By: Chey Adair on 01-04-2025 Neutrophils/100 WBC (Bld) 81.9 % High 47-70 [facility] No Panel InformationOrdered By: Chey Adair on 01-04-2025 HIV (1&2) Antibody Non-Reactive Nonreactive [facility] Comment on above: Non-ReactiveReactive Repeatedly reactive samples must be confirmed according to CDC recommended confirmatory algorithms. The subresults for either HIVAG or AHIV can be used as an aid in the selection of the confirmation algorithm for reactive samples.Send out specimens with Reactive results to [facility] for confirmation.Order the HIV antibody detection and differentiation: #[id number] Unsaturated Iron Binding Capacity 491 ug/dL High 228-428 [facility] 491 ug/dL High 228-428 [facility] Non-Reactive Nonreactive [facility] Nucleated red blood cell per centageOrdered By: Chey Adair on 01-04-2025 Nucleated RBC/100 WBC (Bld) [Ratio] 0 % 0-5 [facility] Platelet countOrdered By: Drew Adair on 01-04-2025 Platelets (Bld) [#/Vol] 266 10*3/uL 150-450 [facility] RBC Auto (Bld) [#/Vol]Ordere d By: Chey Adair on 01-04-2025 RBC (Bld) [#/Vol] 3.55 10*6/uL Low 4.2-5.4 [facility] Serum or plasma ferritin isabel surement (mass/volume)Ordered By: Chey Adair on 01-04-2025 Ferritin [Mass/Vol] 6 ng/mL Low 22-378 [facility] Serum or plasma iron saturat ion measurement (mass fraction)Ordered By: Chey Adair on 01-04-2025 Iron saturation [Mass fraction] 4.5 % Low 13-59 [facility] Comment on above: Previous reported re sult: 4.0 %Edited by: MSTONER on 01/04/25:1203 Syphilis Antibodieson 2024 Syphilis Abs Non-Reactive Normal Nonreactive [facility] Comment on above: Performed By: #### L 509.8002, L503.6550, L503.6030, L100.0100, L501.0250, L3890.6006 ####[facility] [address] [place], [address] White blood cell (WBC) count Ordered By: Chey Adair on 01-04-2025 WBC (Bld) [#/Vol] 9.5 10*3/uL 4.4-11.0 [facility] Laboratory - Chemistry and C hemistry - challengeOrdered By: Chey Adair on 12-09-2024 Glucose Ql (U) Negative [facility] Laboratory - UrinalysisOrder ed By: Chey Adair on 12-09-2024 Protein Ql (U) Trace [facility] No Panel InformationOrdered By: Chey Adair on 12-09-2024 Negative [facility] Trace [facility] Film Reader Office Visit Reporton 12-09-2024 Film Reader Office Visit Report Normal [facility] Laboratory - Chemistry and C hemistry - challengeOrdered By: Chey Adair on 11-11-2024 Glucose Ql (U) Negative [facility] Laboratory - UrinalysisOrder ed By: Chey Adair on 11-11-2024 Protein Ql (U) Negative [facility] Film Reader Office Visit Reporton 11-11-2024 Film Reader Office Visit Report Normal [facility] Laboratory - Chemistry and C hemistry - challengeOrdered By: Renetta Nielsen on 10-16-2024 Glucose Ql (U) 100 g/dL [facility] Laboratory - UrinalysisOrder ed By: Renetta Nielsen on 10-16-2024 Protein Ql (U) Trace [facility] Film Reader Office Visit Reporton 10-16-2024 Film Reader Office Visit Report Normal [facility] Absolute lymphocyte countOrd ered By: Rose Marie Morales on 09-17-2024 Lymphocytes Auto (Unsp spec) [#/Vol] 1.43 10*3/uL 0.83-4.51 [facility] Absolute neutrophil countOrd ered By: Rose Marie Morales on 09-17-2024 Neutrophils (Bld) [#/Vol] 8.0 10*3/uL High 2.0-7.7 [facility] Anion gap in Serum or Plasma Ordered By: Rose Marie Murillolorin on 09-17-2024 Anion gap [Moles/Vol] 14 mmol/L 11-12 [facility] Automated lymphocyte count a s percentage of total leukocytesOrdered By: Rose Marie Murillolorin on 09-17-2024 Lymphocytes/100 WBC Auto (Unsp spec) 14.2 % Low [facility] BUN/creatinine ratioOrdered By: Rose Marie Horvathje on 09-17-2024 Urea nitrogen/Creatinine [Mass ratio] 15.2 mg/mg 04-19 [facility] Basophil percentageOrdered B y: Rose Marie Horvathje on 09-17-2024 Basophils/100 WBC (Bld) 0.3 % 0-1 [facility] Bilirubin, totalOrdered By: Rose Marie Alexandruje on 09-17-2024 Bilirubin [Mass/Vol] 0.16 mg/dL 0.00-1.30 [facility] CBC W/Diff, Automatedon 08-30 Absolute Lymph 1.43 X10 3/uL Normal 0.83-4.51 [facility] Comment on above: Performed By: #### L 500.4050, BTS, L501.9985, L100.0100, L3890.6102, L509.8002, L3890.6301, L3890.6006, L509.4006, L505.5000 ####[facility] [address] [place], [address] Absolute Neut 8.0 X10 3/uL High 2.0-7.7 [facility] Comment on above: Performed By: #### L 500.4050, BTS, L501.9985, L100.0100, L3890.6102, L509.8002, L3890.6301, L3890.6006, L509.4006, L505.5000 ####[facility] [address] [place], [address] Basophils/100 WBC (Bld) 0.3 % Normal 0-1 [facility] Comment on above: Performed By: #### L 500.4050, BTS, L501.9985, L100.0100, L3890.6102, L509.8002, L3890.6301, L3890.6006, L509.4006, L505.5000 ####[facility] [address] [place], [address] Eosinophils/100 WBC (Bld) 0.9 % Normal 0-5 [facility] Comment on above: Performed By: #### L 500.4050, BTS, L501.9985, L100.0100, L3890.6102, L509.8002, L3890.6301, L3890.6006, L509.4006, L505.5000 ####[facility] [address] [place], [address] Erythrocyte distribution width (RBC) [Ratio] 18.6 % High 11.6-14.6 [facility] Comment on above: Performed By: #### L 500.4050, BTS, L501.9985, L100.0100, L3890.6102, L509.8002, L3890.6301, L3890.6006, L509.4006, L505.5000 ####[facility] [address] [place], [address] Hematocrit (Bld) [Volume fraction] 28.6 % Low 37-47 [facility] Comment on above: Performed By: #### L 500.4050, BTS, L501.9985, L100.0100, L3890.6102, L509.8002, L3890.6301, L3890.6006, L509.4006, L505.5000 ####[facility] [address] [place], [address] Hemoglobin (Bld) [Mass/Vol] 8.9 g/dL Low 12.0-15.0 [facility] Comment on above: Performed By: #### L 500.4050, BTS, L501.9985, L100.0100, L3890.6102, L509.8002, L3890.6301, L3890.6006, L509.4006, L505.5000 ####[facility] [address] [place], [address] IG% 0.300 Normal 0.0-0.9 [facility] Comment on above: Result Comment: IG% - Immature Granulocytes (promyelocytes, myelocytes andmetamyelocytes) > 1% indicates that a LEFT SHIFT is Present. Performed By: #### L 500.4050, BTS, L501.9985, L100.0100, L3890.6102, L509.8002, L3890.6301, L3890.6006, L509.4006, L505.5000 ####[facility] [address] [place], [address] Lymphocytes/100 WBC (Bld) 14.2 % Low 19-41 [facility] Comment on above: Performed By: #### L 500.4050, BTS, L501.9985, L100.0100, L3890.6102, L509.8002, L3890.6301, L3890.6006, L509.4006, L505.5000 ####[facility] [address] [place], [address] MCH (RBC) [Entitic mass] 20.0 pg Low 27.0-32.0 [facility] Comment on above: Performed By: #### L 500.4050, BTS, L501.9985, L100.0100, L3890.6102, L509.8002, L3890.6301, L3890.6006, L509.4006, L505.5000 ####[facility] [address] [place], [address] MCHC (RBC) [Mass/Vol] 31.1 g/dL Low 32-36 [facility] Comment on above: Performed By: #### L 500.4050, BTS, L501.9985, L100.0100, L3890.6102, L509.8002, L3890.6301, L3890.6006, L509.4006, L505.5000 ####[facility] [address] [place], [address] MCV (RBC) [Entitic vol] 64.3 fL Low 81-99 [facility] Comment on above: Performed By: #### L 500.4050, BTS, L501.9985, L100.0100, L3890.6102, L509.8002, L3890.6301, L3890.6006, L509.4006, L505.5000 ####[facility] [address] [place], [address] Monocytes/100 WBC (Bld) 4.3 % Normal 0-10 [facility] Comment on above: Performed By: #### L 500.4050, BTS, L501.9985, L100.0100, L3890.6102, L509.8002, L3890.6301, L3890.6006, L509.4006, L505.5000 ####[facility] [address] [place], [address] Neutrophils/100 WBC (Bld) 80.0 % High 47-70 [facility] Comment on above: Performed By: #### L 500.4050, BTS, L501.9985, L100.0100, L3890.6102, L509.8002, L3890.6301, L3890.6006, L509.4006, L505.5000 ####[facility] [address] [place], [address] Nucleated RBC (Bld) [#/Vol] 0 10*3/uL Normal 0-5 [facility] Comment on above: Performed By: #### L 500.4050, BTS, L501.9985, L100.0100, L3890.6102, L509.8002, L3890.6301, L3890.6006, L509.4006, L505.5000 ####[facility] [address] [place], [address] Platelet mean volume (Bld) [Entitic vol] 9.1 fL Normal 6.2-12.0 [facility] Comment on above: Performed By: #### L 500.4050, BTS, L501.9985, L100.0100, L3890.6102, L509.8002, L3890.6301, L3890.6006, L509.4006, L505.5000 ####[facility] [address] [place], [address](151) Platelets (Bld) [#/Vol] 401 10*3/uL Normal 150-450 [facility] Comment on above: Performed By: #### L 500.4050, BTS, L501.9985, L100.0100, L3890.6102, L509.8002, L3890.6301, L3890.6006, L509.4006, L505.5000 ####[facility] [address] [place], [address] RBC (Bld) [#/Vol] 4.45 10*6/uL Normal 4.2-5.4 [facility] Comment on above: Performed By: #### L 500.4050, BTS, L501.9985, L100.0100, L3890.6102, L509.8002, L3890.6301, L3890.6006, L509.4006, L505.5000 ####[facility] [address] [place], [address] RDW SD 42.3 fl Normal 35.1-43.9 [facility] Comment on above: Performed By: #### L 500.4050, BTS, L501.9985, L100.0100, L3890.6102, L509.8002, L3890.6301, L3890.6006, L509.4006, L505.5000 ####[facility] [address] [place], [place], [phone](768) WBC (Bld) [#/Vol] 10.0 10*3/uL Normal 4.4-11.0 [facility] Comment on above: Performed By: #### L 500.4050, BTS, L501.9985, L100.0100, L3890.6102, L509.8002, L3890.6301, L3890.6006, L509.4006, L505.5000 ####[facility] [address] [place], [address](071) Carbon dioxide, total [Moles /volume] in Central venous bloodOrdered By: Rose Marie Morales on 09-17-2024 CO2 [Moles/Vol] 18.2 mmol/L Low 21.0-32.0 [facility] Chloride assayOrdered By: Denia Morales on 09-17-2024 Chloride [Moles/Vol] 104 mmol/L 98-108 [facility] Comprehensive Metabolic Prof ilon 09-17-2024 Albumin [Mass/Vol] 3.6 g/dL Normal 3.5-5.0 [facility] Comment on above: Performed By: #### L 500.4050, BTS, L501.9985, L100.0100, L3890.6102, L509.8002, L3890.6301, L3890.6006, L509.4006, L505.5000 ####[facility] [address] [place], [place], [phone](011) Albumin/Globulin [Mass ratio] 1.0 {ratio} Normal 0.9-2.4 [facility] Comment on above: Performed By: #### L 500.4050, BTS, L501.9985, L100.0100, L3890.6102, L509.8002, L3890.6301, L3890.6006, L509.4006, L505.5000 ####[facility] [address] [place], [place], [phone](778) ALK PHOS 83 U/L Normal 35-104 [facility] Comment on above: Performed By: #### L 500.4050, BTS, L501.9985, L100.0100, L3890.6102, L509.8002, L3890.6301, L3890.6006, L509.4006, L505.5000 ####[facility] [address] [place], [place], [id number] ALT [Catalytic activity/Vol] 12 U/L Normal <=34 [facility] Comment on above: Performed By: #### L 500.4050, BTS, L501.9985, L100.0100, L3890.6102, L509.8002, L3890.6301, L3890.6006, L509.4006, L505.5000 ####[facility] [address] [place], [place], [phone](764) AST [Catalytic activity/Vol] 16 U/L Normal <=31 [facility] Comment on above: Performed By: #### L 500.4050, BTS, L501.9985, L100.0100, L3890.6102, L509.8002, L3890.6301, L3890.6006, L509.4006, L505.5000 ####[facility] [address] [place], [address] Bilirubin [Mass/Vol] 0.16 mg/dL Normal 0.00-1.30 [facility] Comment on above: Performed By: #### L 500.4050, BTS, L501.9985, L100.0100, L3890.6102, L509.8002, L3890.6301, L3890.6006, L509.4006, L505.5000 ####[facility] [address] [place], [address] BUN/CRE 15.2 RATIO Normal 10-20 [facility] Comment on above: Performed By: #### L 500.4050, BTS, L501.9985, L100.0100, L3890.6102, L509.8002, L3890.6301, L3890.6006, L509.4006, L505.5000 ####[facility] [address] [place], [address] Calcium [Mass/Vol] 8.8 mg/dL Normal 7.6-11.0 [facility] Comment on above: Performed By: #### L 500.4050, BTS, L501.9985, L100.0100, L3890.6102, L509.8002, L3890.6301, L3890.6006, L509.4006, L505.5000 ####[facility] [address] [place], [address] Chloride [Moles/Vol] 104 mmol/L Normal 98-108 [facility] Comment on above: Performed By: #### L 500.4050, BTS, L501.9985, L100.0100, L3890.6102, L509.8002, L3890.6301, L3890.6006, L509.4006, L505.5000 ####[facility] [address] [place], [address] CO2 [Moles/Vol] 18.2 mmol/L Low 21.0-32.0 [facility] Comment on above: Performed By: #### L 500.4050, BTS, L501.9985, L100.0100, L3890.6102, L509.8002, L3890.6301, L3890.6006, L509.4006, L505.5000 ####[facility] [address], [address] Creatinine [Mass/Vol] 0.57 mg/dL Low 0.70-1.20 [facility] Comment on above: Performed By: #### L 500.4050, BTS, L501.9985, L100.0100, L3890.6102, L509.8002, L3890.6301, L3890.6006, L509.4006, L505.5000 ####[facility] [address] [place], [place], [phone](101) GAP 14 Normal 5-15 [facility] Comment on above: Performed By: #### L 500.4050, BTS, L501.9985, L100.0100, L3890.6102, L509.8002, L3890.6301, L3890.6006, L509.4006, L505.5000 ####[facility] [address] [place], [place], [phone](708 GFR/1.73 sq M.predicted among non-blacks MDRD (S/P/Bld) [Vol rate/Area] 126 mL/min/{1.73_m2} Normal >60 [facility] Comment on above: Result Comment: mL/m in/1.73m2 CKD-EPI Creatinine Equation (2020) Performed By: #### L 500.4050, BTS, L501.9985, L100.0100, L3890.6102, L509.8002, L3890.6301, L3890.6006, L509.4006, L505.5000 ####[facility] [address] [place], [place], [phone](512) Globulin (S) [Mass/Vol] 3.7 g/dL Normal 2.2-4.2 [facility] Comment on above: Performed By: #### L 500.4050, BTS, L501.9985, L100.0100, L3890.6102, L509.8002, L3890.6301, L3890.6006, L509.4006, L505.5000 ####[facility] [address] [place], [address] Glucose [Mass/Vol] 120 mg/dL High 70-99 [facility] Comment on above: Performed By: #### L 500.4050, BTS, L501.9985, L100.0100, L3890.6102, L509.8002, L3890.6301, L3890.6006, L509.4006, L505.5000 ####[facility] [address] [place], [address] Potassium [Moles/Vol] 3.6 mmol/L Normal 3.3-5.1 [facility] Comment on above: Performed By: #### L 500.4050, BTS, L501.9985, L100.0100, L3890.6102, L509.8002, L3890.6301, L3890.6006, L509.4006, L505.5000 ####[facility] [address] [place], [address] Sodium [Moles/Vol] 137 mmol/L Normal 133-145 [facility] Comment on above: Performed By: #### L 500.4050, BTS, L501.9985, L100.0100, L3890.6102, L509.8002, L3890.6301, L3890.6006, L509.4006, L505.5000 ####[facility] [address] [place], [address] T PROT 7.3 g/dL Normal 5.9-8.4 [facility] Comment on above: Performed By: #### L 500.4050, BTS, L501.9985, L100.0100, L3890.6102, L509.8002, L3890.6301, L3890.6006, L509.4006, L505.5000 ####[facility] [place] [address] [place], [address] Urea nitrogen [Mass/Vol] 9 mg/dL Normal 4-19 [facility] [place] Comment on above: Performed By: #### L 500.4050, BTS, L501.9985, L100.0100, L3890.6102, L509.8002, L3890.6301, L3890.6006, L509.4006, L505.5000 ####[facility] [place] [address] [place], [address] Eosinophil percentageOrdered By: Rose Marie Morales on 09-17-2024 Eosinophils/100 WBC (Bld) 0.9 % 0-5 [facility] [place] Erythrocyte distribution wid th ratioOrdered By: Rose Marie Morales on 09-17-2024 Erythrocyte distribution width (RBC) [Ratio] 18.6 % High 11.6-14.6 [facility] [place] Erythrocyte distribution wid th standard deviationOrdered By: Rose Marie Morales on 09-17-2024 Erythrocyte distribution width (RBC) [Entitic vol] 42.3 fL 35.1-43.9 [facility] [place] Erythrocyte distribution width (RBC) [Ratio] 42.3 fl 35.1-43.9 [facility] [place] GFR/1.73 sq M.predicted xenia g non-blacks MDRD (S/P/Bld) [Vol rate/Area]Ordered By: Rose Marie Morales on 09-17-2024 Estimated GFR (MDRD) Non-Af Amer 126 >60 [facility] [place] Comment on above: mL/min/1.73m2 CKD-EP I Creatinine Equation (2020) Glomerular filtration rate ( GFR) estimation/1.73 sq m using serum, plasma, or whole bOrdered By: Rose Marie Morales on 09-17-2024 GFR/1.73 sq M.predicted among non-blacks MDRD (S/P/Bld) [Vol rate/Area] 126 mL/min/{1.73_m2} >60 [facility] [place] Comment on above: mL/min/1.73m2 CKD-EP I Creatinine Equation (2020) HBV surface Ag Ql (S)Ordered By: Rose Marie Morales on 09-17-2024 Hepatitis B Surface Antigen Non-Reactive Nonreactive [facility] [place] Comment on above: Reactive: Presumptiv e evidence of HBV. Repeatedly reactive samples must be confirmed using a neutralization test ([employer] HBsAg Confirmatory Test)Non-Reactive: HBsAg not detected; does not exclude the possibility of exposure to HBV Hematocrit Auto (Bld) [Volum e fraction]Ordered By: Rose Marie Morales on 09-17-2024 Hematocrit (Bld) [Volume fraction] 28.6 % Low 37-47 [facility] [place] Hemoglobin A1con 09-17-2024 HbA1c (Bld) [Mass fraction] 5.9 % Normal <=5.6 [facility] [place] Comment on above: Performed By: #### L 500.4050, BTS, L501.9985, L100.0100, L3890.6102, L509.8002, L3890.6301, L3890.6006, L509.4006, L505.5000 ####[facility] [place] [address] [place], [address] Hemoglobin A1c percentageOrd ered By: Rose Marie Morales on 09-17-2024 HbA1c (Bld) [Mass fraction] 5.9 % >5.7 [facility] [place] Hemoglobin measurementOrdere d By: Rose Marie Morales on 09-17-2024 Hemoglobin (Bld) [Mass/Vol] 8.9 g/dL Low 12.0-15.0 [facility] [place] Hepatitis C antibodyOrdered By: Rose Marie Morales on 09-17-2024 Hepatitis C Antibody Non-Reactive Nonreactive [facility] Comment on above: Reactive: Presumptiv e evidence of antibodies to HCV. Follow CDC recommendations for supplemental testing.Non-Reactive: Antibodies to HCV were not detected; does not exclude the possibility of exposure to HCVReactive Results are presumptive evidence of antibodies to HCV. Follow CDC recommendations for supplemental testing.Order confirmation testing: HCV Quant by PCR testing - HCVPCR #[id number] Non Reactive: < 0.8 Equivocal: >/= 0.8 to < 1.0 Reactive: >/= 1.0The CDC requires that a reactive/equivocal HCV antibody result be sent out for confirmation. HCV Quant by PCR testing. Immature granulocytes/100 WB C Auto (Bld)Ordered By: Rose Marie Morales on 09-17-2024 Immature granulocytes/100 WBC (Bld) 0.300 % 0.0-0.9 [facility] [place] Comment on above: IG% - Immature Granu locytes (promyelocytes, myelocytes and metamyelocytes) > 1% indicates that a LEFT SHIFT is Present. L3890.6006on 09-17-2024 HIV Non-Reactive Normal Nonreactive [facility] [place] Comment on above: Result Comment: Non- ReactiveReactiveRepeatedly reactive samples must be confirmed according [facility] recommended confirmatory algorithms. The subresults foreither HIVAG or AHIV can be used as an aid in the selectionof the confirmation algorithm for reactive samples.Send out specimens with Reactive results to [facility] forconfirmation.Order the HIV antibody detection and differentiation:lc#[id number] Performed By: #### L 500.4050, BTS, L501.9985, L100.0100, L3890.6102, L509.8002, L3890.6301, L3890.6006, L509.4006, L505.5000 ####[facility] [place] [address] [place], [address] L3890.6102on 09-17-2024 HEP B Surf Ag Non-Reactive Normal Nonreactive [facility] [place] Comment on above: Result Comment: Reac tive: Presumptive evidence of HBV. Repeatedly reactivesamples must be confirmed using a neutralization test([employer] HBsAg Confirmatory Test)Non-Reactive: HBsAg not detected; does not exclude thepossibility of exposure to HBV Performed By: #### L 500.4050, BTS, L501.9985, L100.0100, L3890.6102, L509.8002, L3890.6301, L3890.6006, L509.4006, L505.5000 ####[facility] [place] [address] [place], [address] L3890.6301on 09-17-2024 Hepatitis C Ab Non-Reactive Normal Nonreactive [facility] [place] Comment on above: Result Comment: Reac tive: Presumptive evidence of antibodies to HCV. [facility] recommendations for supplemental testing.Non-Reactive: Antibodies to HCV were not detected; does notexclude the possibility of exposure to HCVReactive Results are presumptive evidence of antibodies toHCV. Follow CDC recommendations for supplemental testing.Order confirmation testing: HCV Quant by PCR testing -HCVPCR lc#[id number] Non Reactive: < 0.8 Equivocal: >/= 0.8 to < 1.0 Reactive: >/= 1.0The [facility] requires that a reactive/equivocal HCV antibodyresult be sent out for confirmation. HCV Quant by PCRtesting. Performed By: #### L 500.4050, BTS, L501.9985, L100.0100, L3890.6102, L509.8002, L3890.6301, L3890.6006, L509.4006, L505.5000 ####[facility] [place] [address] [place], [address] L509.4006on 09-17-2024 Rubella IgG REAC Normal Nonreactive [facility] [place] Comment on above: Result Comment: Anti body Result: InterpretationNon-Reactive: Non-ImmuneReactive: ImmuneThe following results were obtained with the [employer]Rubella IgG assay. Results from assays of othermanufacturers cannot be used interchangeably. Performed By: #### L 500.4050, BTS, L501.9985, L100.0100, L3890.6102, L509.8002, L3890.6301, L3890.6006, L509.4006, L505.5000 ####[facility] [place] [address] [place], [address] L509.8002on 09-17-2024 Syphilis Abs Non-Reactive Normal Nonreactive [facility] [place] Comment on above: Performed By: #### L 500.4050, BTS, L501.9985, L100.0100, L3890.6102, L509.8002, L3890.6301, L3890.6006, L509.4006, L505.5000 ####[facility] [place] [address] [place], [address] Laboratory - Chemistry and C hemistry - challengeOrdered By: Rose Marie Morales on 09-17-2024 AST [Catalytic activity/Vol] 16 U/L <32 [facility] [place] Laboratory - Chemistry and C hemistry - challengeOrdered By: Renetta Nielsen on 09-17-2024 Glucose Ql (U) Negative [facility] [place] Laboratory - Microbiology an d Antimicrobial susceptibilityOrdered By: Rose Marie Morales on 09-17-2024 HBV surface Ag Ql (S) Non-Reactive Nonreactive [facility] [place] Comment on above: Reactive: Presumptiv e evidence of HBV. Repeatedly reactive samples must be confirmed using a neutralization test ([employer] HBsAg Confirmatory Test)Non-Reactive: HBsAg not detected; does not exclude the possibility of exposure to HBV Laboratory - UrinalysisOrder ed By: Renetta Nielsen on 09-17-2024 Protein Ql (U) Negative [facility] [place] Lymphocytes Auto (Unsp spec) [#/Vol]Ordered By: Rose Marie Morales on 09-17-2024 Lymphocytes (Bld) [#/Vol] 1.43 10*3/uL 0.83-4.51 [facility] [place] Lymphocytes/100 WBC Auto (Un sp spec)Ordered By: Rose Marie Morales on 09-17-2024 Lymphocytes/100 WBC (Bld) 14.2 % Low 19-41 [facility] [place] MCV (mean corpuscular volume ) determinationOrdered By: Rose Marie Morales on 09-17-2024 MCV (RBC) [Entitic vol] 64.3 fL Low 81-99 [facility] Mean corpuscular hemoglobin (MCH) determinationOrdered By: Rose Marie Morales on 09-17-2024 MCH (RBC) [Entitic mass] 20.0 pg Low 27.0-32.0 [facility] [place] Mean corpuscular hemoglobin concentration (MCHC) determinationOrdered By: Rose Marie Morales on 09-17-2024 MCHC (RBC) [Mass/Vol] 31.1 g/dL Low 32-36 [facility] Mean platelet volume determi nationOrdered By: Rose Marie Morales on 09-17-2024 Platelet mean volume (Bld) [Entitic vol] 9.1 fL 6.2-12.0 [facility] [place] Monocyte percentageOrdered B y: Rose Marie Morales on 09-17-2024 Monocytes/100 WBC (Bld) 4.3 % 0-10 [facility] Neutrophil percentageOrdered By: Rose Marie Morales on 09-17-2024 Neutrophils/100 WBC (Bld) 80.0 % High 47-70 [facility] [place] No Panel InformationOrdered By: Rose Marie Morales on 09-17-2024 HIV (1&2) Antibody Non-Reactive Nonreactive [facility] Comment on above: Non-ReactiveReactive Repeatedly reactive samples must be confirmed according to CDC recommended confirmatory algorithms. The subresults for either HIVAG or AHIV can be used as an aid in the selection of the confirmation algorithm for reactive samples.Send out specimens with Reactive results to [facility] for confirmation.Order the HIV antibody detection and differentiation: #[id number] Nucleated red blood cell per centageOrdered By: Rose Marie Morales on 09-17-2024 Nucleated RBC/100 WBC (Bld) [Ratio] 0 % 0-5 [facility] [place] Film Reader Office Visit Reporton 09-17-2024 Film Reader Office Visit Report Normal [facility] [place] Platelet countOrdered By: Denia Morales on 09-17-2024 Platelets (Bld) [#/Vol] 401 10*3/uL 150-450 [facility] [place] Potassium (Unsp spec) [Mass/ Vol]Ordered By: Rose Marie Morales on 09-17-2024 Potassium [Moles/Vol] 3.6 mmol/L 3.3-5.1 [facility] Potassium measurement (mass/ volume)Ordered By: Rose Marie Morales on 09-17-2024 Potassium (Unsp spec) [Mass/Vol] 3.6 mmol/L 3.3-5.1 [facility] [place] RBC Auto (Bld) [#/Vol]Ordere d By: Rose Marie Morales on 09-17-2024 RBC (Bld) [#/Vol] 4.45 10*6/uL 4.2-5.4 [facility] Rubella immune status determ ination by IgG antibody assayOrdered By: Rose Marie Morales on 09-17-2024 Rubella IgG Antibody REAC Nonreactive [facility] Comment on above: Antibody Result: Int erpretationNon-Reactive: Non-ImmuneReactive: ImmuneThe following results were obtained with the [employer] Rubella IgG assay. Results from assays of other manufacturers cannot be used interchangeably. Serum creatinine measurement (mass/volume)Ordered By: Rose Marie Morales on 09-17-2024 Creatinine [Mass/Vol] 0.57 mg/dL Low 0.70-1.20 [facility] Serum globulin measurementOr dered By: Rose Marie Morales on 09-17-2024 Globulin (S) [Mass/Vol] 3.7 g/dL 2.2-4.2 [facility] Serum glucose measurement (m ass/volume)Ordered By: Rose Marie Morales on 09-17-2024 Glucose [Mass/Vol] 120 mg/dL High 70-99 [facility] Serum or plasma alanine montejo otransferase (ALT) measurementOrdered By: Rose Marie Morales on 09-17-2024 ALT [Catalytic activity/Vol] 12 U/L <35 [facility] [place] Serum or plasma albumin erica urement (mass/volume)Ordered By: Rose Marie Morales on 09-17-2024 Albumin [Mass/Vol] 3.6 g/dL 3.5-5.0 [facility] Serum or plasma albumin/glob ulin mass ratioOrdered By: Rose Marie Morales on 09-17-2024 Albumin/Globulin [Mass ratio] 1.0 {ratio} 0.9-2.4 [facility] [place] Serum or plasma alkaline juan a sphatase measurementOrdered By: Rose Marie Morales on 09-17-2024 ALP [Catalytic activity/Vol] 83 U/L 35-104 [facility] [place] Serum or plasma calcium erica urement (mass/volume)Ordered By: Rose Marie Morales on 09-17-2024 Calcium [Mass/Vol] 8.8 mg/dL 7.6-11.0 [facility] Serum or plasma urea nitroge n measurement (mass/volume)Ordered By: Rose Marie Morales on 09-17-2024 Urea nitrogen [Mass/Vol] 9 mg/dL 4-19 [facility] [place] Sodium levelOrdered By: Sergio llanos Carmen on 09-17-2024 Sodium [Moles/Vol] 137 mmol/L 133-145 [facility] T. pallidum abOrdered By: Denia Morales on 09-17-2024 Syphilis Total Antibody Non-Reactive Nonreactiv e [facility] [place] Total proteinOrdered By: Johnathan Morales on 09-17-2024 Protein [Mass/Vol] 7.3 g/dL 5.9-8.4 [facility] Type AND Screenon 09-17-2024 ABO and Rh group Nom (Bld) Blood group B Rh(D) positive Normal [facility] [place] Comment on above: Order Comment: PN Performed By: #### L 500.4050, BTS, L501.9985, L100.0100, L3890.6102, L509.8002, L3890.6301, L3890.6006, L509.4006, L505.5000 ####[facility] [place] [address] [place], [place], [address] Urine Drug Screen (VISTA)on 09-17-2024 AMPHETAMINES Normal <1000 ng/mL [facility] [place] Comment on above: Order Comment: UNK Result Comment: NO U RINE COLLECTED Performed By: #### L 500.4050, BTS, L501.9985, L100.0100, L3890.6102, L509.8002, L3890.6301, L3890.6006, L509.4006, L505.5000 ####[facility] [place] [address] [place], [place], [address] BARBITIURATES Normal < 200 ng/mL [facility] [place] Comment on above: Order Comment: UNK Result Comment: NO U RINE COLLECTED Performed By: #### L 500.4050, BTS, L501.9985, L100.0100, L3890.6102, L509.8002, L3890.6301, L3890.6006, L509.4006, L505.5000 ####[facility] [place] [address] [place], [place], [address] BENZODIAZIPINE Normal < 200 ng/mL [facility] [place] Comment on above: Order Comment: UNK Result Comment: NO U RINE COLLECTED Performed By: #### L 500.4050, BTS, L501.9985, L100.0100, L3890.6102, L509.8002, L3890.6301, L3890.6006, L509.4006, L505.5000 ####[facility] [place] [address] [place], [place], [address] BUP Ur Drug Scr Normal < 200 ng/mL [facility] [place] Comment on above: Order Comment: UNK Result Comment: NO U RINE COLLECTED Performed By: #### L 500.4050, BTS, L501.9985, L100.0100, L3890.6102, L509.8002, L3890.6301, L3890.6006, L509.4006, L505.5000 ####[facility] [place] [address] [place], [place], [address] COCAINE Normal < 300 ng/mL [facility] [place] Comment on above: Order Comment: UNK Result Comment: NO U RINE COLLECTED Performed By: #### L 500.4050, BTS, L501.9985, L100.0100, L3890.6102, L509.8002, L3890.6301, L3890.6006, L509.4006, L505.5000 ####[facility] [place] [address] [place], [place], [address] Fentanyl Normal [facility] [place] Comment on above: Order Comment: UNK Result Comment: NO U RINE COLLECTED Performed By: #### L 500.4050, BTS, L501.9985, L100.0100, L3890.6102, L509.8002, L3890.6301, L3890.6006, L509.4006, L505.5000 ####[facility] [place] [address] [place], [place], [address] METHADONE Normal < 300 ng/mL [facility] [place] Comment on above: Order Comment: UNK Result Comment: NO U RINE COLLECTED Performed By: #### L 500.4050, BTS, L501.9985, L100.0100, L3890.6102, L509.8002, L3890.6301, L3890.6006, L509.4006, L505.5000 ####[facility] [place] [address] [place], [place], [address] OPIATES Normal < 300 ng/mL [facility] [place] Comment on above: Order Comment: UNK Result Comment: NO U RINE COLLECTED Performed By: #### L 500.4050, BTS, L501.9985, L100.0100, L3890.6102, L509.8002, L3890.6301, L3890.6006, L509.4006, L505.5000 ####[facility] [place] [address] [place], [place], [address] OXYCODONE Normal < 100 ng/mL [facility] [place] Comment on above: Order Comment: UNK Result Comment: NO U RINE COLLECTED Performed By: #### L 500.4050, BTS, L501.9985, L100.0100, L3890.6102, L509.8002, L3890.6301, L3890.6006, L509.4006, L505.5000 ####[facility] [place] [address] [place], [place], [address] PCP Normal < 25 ng/mL [facility] [place] Comment on above: Order Comment: UNK Result Comment: NO U RINE COLLECTED Performed By: #### L 500.4050, BTS, L501.9985, L100.0100, L3890.6102, L509.8002, L3890.6301, L3890.6006, L509.4006, L505.5000 ####[facility] [place] [address] [place], [place], [address] THC Normal < 50 ng/mL [facility] [place] Comment on above: Order Comment: UNK Result Comment: NO U RINE COLLECTED Performed By: #### L 500.4050, BTS, L501.9985, L100.0100, L3890.6102, L509.8002, L3890.6301, L3890.6006, L509.4006, L505.5000 ####[facility] [place] [address] [place], [place], [address] White blood cell (WBC) count Ordered By: Rose Marie Morales on 09-17-2024 WBC (Bld) [#/Vol] 10.0 10*3/uL 4.4-11.0 [facility] CNOVon 09-15-2024 CN Office Visit (WSTR ) -------- PARVIN ALLEN ([id number]) 1995 F Date Time Provider Department 09/15/24 8:30 AM JUAN ALBERTO LOCKHART [facility] During your visit today, we recorded the following information about you: Temperature Pulse Respiration Blood pressure 98.3 degrees 72/minute 18/minute 129/85 Weight 104 kg Juan Alberto Lockhart PA 09/15/2024 8:41 AM Signed [facility] Subjective Parvin Allen is a 28 year old female. Patient presents with: Dental Problem: R side lower, tooth broke off and stuck in gum, x 1 day Painful Resources given for dentist HPI 28-year-old female presents for right side lower tooth infection. Patient states her tooth broke off about a week ago and she is having pain in this area. She has been trying to get into a dentist, but is unable to get into 1. She denies any fevers. No difficulty breathing or swallowing. She is 12 weeks . No other complaint PAST MEDICAL HISTORY Diagnosis Date Anemia Anxiety [...] ALLERGIES Patient has no known allergies. MEDICATIONS vit no.288-tgrp-zvhfy ( VITAMIN) 27 mg iron- 800 mcg tab Take 1 tablet by mouth once daily. albuterol HFA (VENTOLIN HFA) 90 mcg/actuation inhaler Inhale 2 Puffs as instructed every 4 hours as needed for Wheezing/Shortness of Breath. amoxicillin (AMOXIL) 875 mg tablet Take 1 tablet by mouth two times a day for 5 days. FAMILY HISTORY Problem Relation [...] Never Smokeless tobacco: Never Vaping Use Vaping status: Never Used Substance Use Topics Alcohol use: No Drug use: No Review of Systems Constitutional: Negative for chills and fever. HENT: Positive for dental problem. Negative for congestion, ear pain and sore throat. Respiratory: Negative for cough and shortness of breath. Cardiovascular: Negative for chest pain. Gastrointestinal: Negative for diarrhea and vomiting. Objective BP 129/85 Pulse 72 Temp 36.8 ?C (98.3 ?F) Resp 18 Wt 104 kg (229 lb 4.5 oz) LMP 06/30/2024 (Exact Date) SpO2 100% BMI 41.66 kg/m? Physical Exam Vitals and nursing note reviewed. Constitutional: General: She is not in acute distress. Appearance: Normal appearance. She is not toxic-appearing. HENT: Nose: Nose normal. Mouth/Throat: Mouth: Mucous membranes are moist. Dentition: Abnormal dentition. Dental tenderness, gingival swelling and dental caries present. No dental abscesses. Comments: Broken tooth #30 with diffuse dental decay down to the gumline. Gingival erythema noted. Tenderness. No tongue or floor mouth swelling. No trismus. Handling secretions Eyes: Conjunctiva/sclera: Conjunctivae normal. Cardiovascular: Rate and Rhythm: Normal rate and regular rhythm. Pulmonary: Effort: Pulmonary effort is normal. Breath sounds: Normal breath sounds. Skin: General: Skin is warm and dry. Neurological: Mental Status: She is alert. {ASSESSMENT/PLAN: 1. Dental infection - ICD9: 522.4, ICD10: K04.7 -Rx amoxicillin. -Ice, Tylenol as needed. -Follow-up with dentistry Diagnosis and treatment plan were discussed and questions were answered to the patient's satisfaction. Pt acknowledged understanding of concepts and follow up plan. Specific signs and symptoms that would indicate the need for higher level of care were discussed in detail warranting prompt ER evaluation. MICHAEL Null Differential Diagnoses - Dental infection is more likely for the following reason(s): suggested by HANDP - Dental abscess is less likely for the following reason(s): HANDP not suggestive - Federico's angina is less likely for the following reason(s): HANDP not suggestive Disposition The patient was discharged. OTC Medications were advised: Tylenol, ice Procedures Allergies As of Date: 09/15/2024 (No Known Allergies) Date Reviewed: 09/15/2024 Reviewed by: Pawel Schmidt (more content not included)... Normal [facility] Miscellaneous procedureOrder ed By: Rose Marie Morales on 09-07-2024 Miscellaneous Test Comment SEE SCANNED REPORT [facility] [place] NATERAon 09-07-2024 ALBERT SEE SCANNED REPORT Normal [facility] Comment on above: Order Comment: Comme nts: NIPT with gender Performed By: #### L 900.0098 ####[facility] [place] [address] [place], [address] Chlamydia/GC MICHELLE aptimaon CHLAMY,NUC ACID Negative Normal Negative [facility] [place] Comment on above: Performed By: #### L 501.0900, M100.2200, L7000.1800 ####[facility] [place] [address] [place], [address] GC BY NUC ACID Negative Normal Negative [facility] [place] Comment on above: Result Comment: Perf ormed at: =G - [facility] [address] [id number] Director: Valentine Watts MD, Phone: [phone] Performed By: #### L 501.0900, M100.2200, L7000.1800 ####[facility] [place] [address] [place], [address] Urine Cultureon 08-18-2024 [facility] Culture exhibits no growth. Normal [facility] [place] Comment on above: Performed By: #### L 501.0900, M100.2200, L7000.1800 ####[facility] [place] [address] [place], [address] C. trachomatis rRNA MICHELLE+prob e Ql (Unsp spec)Ordered By: Rose Marie Morales on 08-17-2024 Chlamydia DNA (MICHELLE) Negative Negative [facility] Chlamydia trachomatis rRNA d etection by probe and target amplification methodOrdered By: Rose Marie Morales on 08-17-2024 C. trachomatis rRNA MICHELLE+probe Ql (Unsp spec) Negative Negative [facility] [place] Neisseria gonorrhoeae nuclei c acid detection by amplified probe techniqueOrdered By: Rose Marie Morales on 08-17-2024 N. gonorrhoeae DNA MICHELLE+probe Ql (Unsp spec) Negative Negative [facility] Comment on above: Performed at: =G - L [facility] [address] [id number] Director: Valentine Watts MD, Phone: [phone] Film Reader Office Visit Reporton 08-17-2024 Film Reader Office Visit Report Normal [facility] Protein+Creatinine Ratio,Uri neon 08-17-2024 PROT:CRE RATIO 111 mg/g CRE Normal 0-200 [facility] Comment on above: Performed By: #### L 501.0900, M100.2200, L7000.1800 ####[facility] [address] [place], [address] Protein (U) [Mass/Vol] 20.7 mg/dL High <11.9 [facility] Comment on above: Performed By: #### L 501.0900, M100.2200, L7000.1800 ####[facility] [address] [place], [address] UR CREAT 186.00 mg/dL Normal NO RANGE EST. [facility] Comment on above: Performed By: #### L 501.0900, M100.2200, L7000.1800 ####[facility] [address] [place], [address] Protein/Creatinine (U) [Mass ratio]Ordered By: Rose Marie Morales on 08-17-2024 Urine Protein/Creatinine Ratio 111 mg/g CRE 0-200 [facility] Random urine protein measure mentOrdered By: Rose Marie Morales on 08-17-2024 Protein (U) [Mass/Vol] 20.7 mg/dL High 0.0-11.8 [facility] Urine creatinine measurement (mass/volume)Ordered By: Rose Marie Morales on 08-17-2024 Creatinine (U) [Mass/Vol] 186.00 mg/dL NO RANGE EST. [facility] Urine cultureOrdered By: Johnathan Morales on 08-17-2024 Bacteria identified Cx Nom (U) Culture exhibits no growth. [facility] Urine protein/creatinine mas s ratioOrdered By: Rose Marie Morales on 08-17-2024 Protein/Creatinine (U) [Mass ratio] 111 mg/g CRE 0-200 [facility] Absolute lymphocyte countOrd ered By: Augie Vallejo on 07-30-2024 Lymphocytes Auto (Unsp spec) [#/Vol] 1.93 10*3/uL 0.83-4.51 [facility] Absolute neutrophil countOrd ered By: Augie Vallejo on 07-30-2024 Neutrophils (Bld) [#/Vol] 6.3 10*3/uL 2.0-7.7 [facility] Automated lymphocyte count a s percentage of total leukocytesOrdered By: Augie Vallejo on 07-30-2024 Lymphocytes/100 WBC Auto (Unsp spec) 21.4 % 19-41 [facility] Bacteria LM.HPF (Urine sed) [#/Area]Ordered By: Augie Vallejo on 07-30-2024 Urine Bacteria RARE /hpf None Seen [facility] Basic Metabolic Profile (BMP )on 07-30-2024 BUN/CRE 11.9 RATIO Normal 10-20 [facility] Comment on above: Performed By: #### L 500.2500, L100.0100 ####[facility] [address] [place], [address] CA,Total 9.0 mg/dL Normal 8.5-10.1 [facility] Comment on above: Performed By: #### L 500.2500, L100.0100 ####[facility] [address] [place], [address] Chloride [Moles/Vol] 106 mmol/L Normal 98-107 [facility] Comment on above: Performed By: #### L 500.2500, L100.0100 ####[facility] [address] [place], [address] CO2 [Moles/Vol] 25.0 mmol/L Normal 21.0-32.0 [facility] Comment on above: Performed By: #### L 500.2500, L100.0100 ####[facility] [address] [place], [address] Creatinine [Mass/Vol] 0.67 mg/dL Normal 0.55-1.02 [facility] Comment on above: Result Comment: The validity of the calculated GFR GFRAA in patients over70 years has not been determined. Clinical correlation isessential. Performed By: #### L 500.2500, L100.0100 ####[facility] [address] [place], [address] ECRCL 139.35 ml/min Normal [facility] Comment on above: Performed By: #### L 500.2500, L100.0100 ####[facility] [address] [place], [address] EST GFR - AA 132 mL/min Normal >60 [facility] Comment on above: Result Comment: Afri can Peruvian GFR Calc Performed By: #### L 500.2500, L100.0100 ####[facility] [address] [place], [address] GAP 5 Normal 5-15 [facility] Comment on above: Performed By: #### L 500.2500, L100.0100 ####[facility] [address] [place], [address] GFR/1.73 sq M.predicted among non-blacks MDRD (S/P/Bld) [Vol rate/Area] 109 mL/min/{1.73_m2} Normal >60 [facility] Comment on above: Result Comment: Non- GFR Calc Performed By: #### L 500.2500, L100.0100 ####[facility] [address] [place], [address] Glucose [Mass/Vol] 88 mg/dL Normal 74-106 [facility] Comment on above: Performed By: #### L 500.2500, L100.0100 ####[facility] [address] [place], [address] Potassium [Moles/Vol] 3.4 mmol/L Low 3.5-5.1 [facility] Comment on above: Performed By: #### L 500.2500, L100.0100 ####[facility] [address] [place], [address] Sodium [Moles/Vol] 136 mmol/L Normal 136-145 [facility] Comment on above: Performed By: #### L 500.2500, L100.0100 ####[facility] [address] [place], [address] Urea nitrogen [Mass/Vol] 8 mg/dL Normal 7-18 [facility] Comment on above: Performed By: #### L 500.2500, L100.0100 ####[facility] [address] [place], [address] Basophil percentageOrdered B y: Augie Vallejo on 07-30-2024 Basophils/100 WBC (Bld) 0.6 % 0-1 [facility] Bilirubin Test strip Ql (U)O rdered By: Augie Vallejo on 07-30-2024 Bilirubin Ql (U) Negative Negative [facility] Blood polychromasia detectio n by light microscopyOrdered By: Augie Vallejo on 07-30-2024 Polychromasia LM Ql (Bld) 1+ [facility] Blood urea nitrogen (BUN)/cr eatinine ratioOrdered By: Augie Vallejo on 07-30-2024 Urea nitrogen/Creatinine [Mass ratio] 11.9 mg/mg 10-20 [facility] CBC W/Diff, Automatedon 07-03 [employer] CELLS RARE Normal [facility] Comment on above: Performed By: #### L 500.2500, L100.0100 ####[facility] [address] [place], [address] Anisocytosis Ql (Bld) 1+ Normal [facility] Comment on above: Performed By: #### L 500.2500, L100.0100 ####[facility] [address] [place], [address] OVALOCYTE 1+ Normal [facility] Comment on above: Performed By: #### L 500.2500, L100.0100 ####[facility] [address] [place], [place], [address] POLYCHROMASIA 1+ Normal [facility] Comment on above: Performed By: #### L 500.2500, L100.0100 ####[facility] [address] [place], [place], [address] Carbon dioxide measurementOr dered By: Augie Vallejo on 07-30-2024 CO2 [Moles/Vol] 25.0 mmol/L 21.0-32.0 [facility] Chloride measurementOrdered By: Augie Vallejo on 07-30-2024 Chloride [Moles/Vol] 106 mmol/L 98-107 [facility] Emergency Department Summary on 07-30-2024 Emergency Department Summary Normal [facility] Eosinophil percentageOrdered By: Augie Vallejo on 07-30-2024 Eosinophils/100 WBC (Bld) 1.7 % 0-5 [facility] Epithelial cells.squamous LM Ql (Urine sed)Ordered By: Augie Vallejo on 07-30-2024 Epithelial cells.squamous LM.HPF (Urine sed) [#/Area] 5 /[HPF] 5-10 [facility] Erythrocyte distribution wid th ratioOrdered By: Augie Vallejo on 07-30-2024 Erythrocyte distribution width (RBC) [Ratio] 20.9 % High 11.6-14.6 [facility] Erythrocyte distribution wid th standard deviationOrdered By: Augie Vallejo on 07-30-2024 Erythrocyte distribution width (RBC) [Entitic vol] 46.6 fL High 35.1-43.9 [facility] Erythrocyte distribution width (RBC) [Ratio] 46.6 fl High 35.1-43.9 [facility] Estimated glomerular filtrat ion rate (GFR) AmericanOrdered By: Augie Vallejo on 07-30-2024 Estimated GFR (MDRD) Amer 132 mL/min >60 [facility] Comment on above: GFR Calc Estimation of creatinine raudel aranceOrdered By: Augie Vallejo on 07-30-2024 Estimated Creatinine Clearance Calc 139.35 ml/min [facility] Glomerular filtration rate ( GFR) estimationOrdered By: Augie Vallejo on 07-30-2024 Estimated GFR (MDRD) Non-Af Amer 109 mL/min >60 [facility] Comment on above: Non- GFR Calc GFR/1.73 sq M.predicted among non-blacks MDRD (S/P/Bld) [Vol rate/Area] 109 mL/min/{1.73_m2} >60 [facility] Comment on above: Non- GFR Calc Glucose Ql (U)Ordered By: Michael Vallejo on 07-30-2024 Urine Glucose (UA) Normal mg/dl Normal [facility] Glucose measurementOrdered B y: Augie Vallejo on 07-30-2024 Glucose [Mass/Vol] 88 mg/dL 74-106 [facility] HCG ( test) QlOrder ed By: Augie Vallejo on 07-30-2024 Human Chorionic Gonadotropin, Quant 4688 mIU/mL High <4 [facility] Comment on above: hCG levels with Gest ational AgeGestational Age hCG mIU/mL (IU/L)0.2 - 1 week 5 - 501-2 weeks 50 - 5002-3 weeks 100 - 23074-6 weeks 500 - 955976-7 weeks 1000 - 289462-5 weeks 98817 - 100,0006-8 weeks 68071 - 200,0002-3 months 68025 - 100,000 Hematocrit Auto (Bld) [Volum e fraction]Ordered By: Augie Vallejo on 07-30-2024 Hematocrit (Bld) [Volume fraction] 30.1 % Low 37-47 [facility] Hemoglobin measurementOrdere d By: Augie Vallejo on 07-30-2024 Hemoglobin (Bld) [Mass/Vol] 9.1 g/dL Low 12.0-15.0 [facility] Immature granulocytes/100 WB C Auto (Bld)Ordered By: Augie Vallejo on 07-30-2024 Immature granulocytes/100 WBC (Bld) 0.600 % 0.0-0.9 [facility] Comment on above: IG% - Immature Granu locytes (promyelocytes, myelocytes and metamyelocytes) > 1% indicates that a LEFT SHIFT is Present. Ketones Test strip Ql (U)Ord ered By: Augie Vallejo on 07-30-2024 Ketones Ql (U) Negative Negative [facility] Laboratory - Hematology and Cell countsOrdered By: Augie Vallejo on 07-30-2024 Anisocytosis Ql (Bld) 1+ [facility] Lymphocytes Auto (Unsp spec) [#/Vol]Ordered By: Augie Vallejo on 07-30-2024 Lymphocytes (Bld) [#/Vol] 1.93 10*3/uL 0.83-4.51 [facility] Lymphocytes/100 WBC Auto (Un sp spec)Ordered By: Augie Vallejo on 07-30-2024 Lymphocytes/100 WBC (Bld) 21.4 % 19-41 [facility] MCV (mean corpuscular volume ) determinationOrdered By: Augie Vallejo on 07-30-2024 MCV (RBC) [Entitic vol] 64.6 fL Low 81-99 [facility] Mean corpuscular hemoglobin (MCH) determinationOrdered By: Augie Vallejo on 07-30-2024 MCH (RBC) [Entitic mass] 19.5 pg Low 27.0-32.0 [facility] Mean corpuscular hemoglobin concentration (MCHC) determinationOrdered By: Augie Vallejo on 07-30-2024 MCHC (RBC) [Mass/Vol] 30.2 g/dL Low 32-36 [facility] Mean platelet volume determi nationOrdered By: Augie Vallejo on 07-30-2024 Platelet mean volume (Bld) [Entitic vol] 10.2 fL 6.2-12.0 [facility] Microscopic analysis of urin e for red blood cells (RBC)Ordered By: Augie Vallejo on 07-30-2024 Microscopic analysis of urine for red blood cells (RBC) 0 SEEN /hpf 0-5 [facility] Urine RBC 0 SEEN /hpf 0-5 [facility] Monocyte percentageOrdered B y: Augie Vallejo on 07-30-2024 Monocytes/100 WBC (Bld) 5.3 % 0-10 [facility] Mucus LM Ql (Urine sed)Order ed By: Augie Vallejo on 07-30-2024 Mucus Ql (Urine sed) 0 SEEN /hpf [facility] Neutrophil percentageOrdered By: Augie Vallejo on 07-30-2024 Neutrophils/100 WBC (Bld) 70.4 % High 47-70 [facility] Nitrite Test strip Ql (U)Ord ered By: Augie Vallejo on 07-30-2024 Nitrite Ql (U) Negative Negative [facility] Nucleated red blood cell per centageOrdered By: Augie Vallejo on 07-30-2024 Nucleated RBC/100 WBC (Bld) [Ratio] 0 % 0-5 [facility] Ovalocyte detectionOrdered B y: Augie Vallejo on 07-30-2024 Ovalocytes LM Ql (Bld) 1+ [facility] Ovalocytes LM Ql (Bld)Ordere d By: Augie Vallejo on 07-30-2024 Ovalocytes 1+ [facility] Platelet countOrdered By: Michael Vallejo on 07-30-2024 Platelets (Bld) [#/Vol] 467 10*3/uL High 150-450 [facility] Polychromasia LM Ql (Bld)Ord ered By: Augie Vallejo on 07-30-2024 Polychromasia 1+ [facility] Potassium measurementOrdered By: Augie Vallejo on 07-30-2024 Potassium [Moles/Vol] 3.4 mmol/L Low 3.5-5.1 [facility] ,Serum,hCG Quali.on 07-30-2024 HCG, SERUM QUAL Normal [facility] Comment on above: Result Comment: CAYLA THORPE REQUESTED CANCELATION Performed By: #### L 700.6800 ####[facility] [address] [place], [place], [id number] INTERNAL QC OK? Normal [facility] Comment on above: Result Comment: CAYLA THORPE REQUESTED CANCELATION Performed By: #### L 700.6800 ####[facility] [address] [place], [place], [id number] RECORD KIT LOT# Normal [facility] Comment on above: Result Comment: CAYLA THORPE REQUESTED CANCELATION Performed By: #### L 700.6800 ####[facility] [address] [place], [place], [address] Protein Test strip Ql (U)Ord ered By: Augie Vallejo on 07-30-2024 Protein Ql (U) Negative Negative [facility] RBC Auto (Bld) [#/Vol]Ordere d By: Augie Vallejo on 07-30-2024 RBC (Bld) [#/Vol] 4.66 10*6/uL 4.2-5.4 [facility] Serum anion gap measurementO rdered By: Augie Vallejo on 07-30-2024 Anion gap [Moles/Vol] 5 mmol/L 5-15 [facility] Serum human chorionic gonado tropin detection for pregnancyOrdered By: Augie Vallejo on 07-30-2024 HCG ( test) Ql 4688 mIU/mL High <4 [facility] Comment on above: hCG levels with Gest ational AgeGestational Age hCG mIU/mL (IU/L)0.2 - 1 week 5 - 501-2 weeks 50 - 5002-3 weeks 100 - 20758-9 weeks 500 - 633665-1 weeks 1000 - 488024-4 weeks 81503 - 100,0006-8 weeks 92131 - 200,0002-3 months 86282 - 100,000 Serum or plasma calcium erica urement (mass/volume)Ordered By: Augie Vallejo on 07-30-2024 Calcium [Mass/Vol] 9.0 mg/dL 8.5-10.1 [facility] Serum or plasma creatinine m easurement (mass/volume)Ordered By: Augie Vallejo on 07-30-2024 Creatinine [Mass/Vol] 0.67 mg/dL 0.55-1.02 [facility] Comment on above: The validity of the calculated GFR & GFRAA in patients over 70 years has not been determined. Clinical correlation is essential. Serum or plasma urea nitroge n measurement (mass/volume)Ordered By: Augie Vallejo on 07-30-2024 Urea nitrogen [Mass/Vol] 8 mg/dL 7-18 [facility] Sodium levelOrdered By: Augie Vallejo on 07-30-2024 Sodium [Moles/Vol] 136 mmol/L 136-145 [facility] Squamous epithelial cells de tection in urine sediment by light microscopyOrdered By: Augie Vallejo on 07-30-2024 Epithelial cells.squamous LM Ql (Urine sed) 5-10 SEEN /hpf 5-10 [facility] Target cell detectionOrdered By: Augie Vallejo on 07-30-2024 Target cells LM Ql (Bld) RARE [facility] Target cells LM Ql (Bld)Orde red By: Augie Vallejo on 07-30-2024 Target Cells RARE [facility] Transvaginal w/Preg USon Transvaginal w/Preg US Normal [facility] Urinalysis, Completeon 07-30 BACTERIA RARE Normal None Seen [facility] Comment on above: Order Comment: KATELYNN CTOR TO SPECIFY Performed By: #### L 400.0001 ####[facility] [address] [place], [address] EPI,SQUAMOUS 5-10 SEEN Normal 5-10 [facility] Comment on above: Order Comment: KATELYNN CTOR TO SPECIFY Performed By: #### L 400.0001 ####[facility] [address] [place], [address] WBC 10-25 SEEN Normal 0-5 [facility] Comment on above: Order Comment: KATELYNN CTOR TO SPECIFY Performed By: #### L 400.0001 ####[facility] [address] [place], [address] Mucus Ql (Urine sed) [address] [facility] Comment on above: Order Comment: KATELYNN CTOR TO SPECIFY Performed By: #### L 400.0001 ####[facility] [address] [place], [address] RBC 0 SEEN Normal 0-5 [facility] Comment on above: Order Comment: KATELYNN CTOR TO SPECIFY Performed By: #### L 400.0001 ####[facility] [address] [place], [address] Urine blood detectionOrdered By: Augie Vallejo on 07-30-2024 Urine Occult Blood Negative Negative [facility] Urine clarityOrdered By: Jennifer Vallejo on 07-30-2024 Clarity (U) Turbid Clear [facility] Urine color determinationOrd ered By: Augie Vallejo on 07-30-2024 Color (U) Yellow Yellow [facility] Urine glucose detectionOrder ed By: Augie Vallejo on 07-30-2024 Glucose Ql (U) Normal mg/dl Normal [facility] Urine leukocyte esterase det ection by dipstickOrdered By: Augie Vallejo on 07-30-2024 Leukocyte esterase Test strip Ql (U) 500 /ul High Negative [facility] Urine pHOrdered By: Augie machado on 07-30-2024 pH (U) 6.5 [pH] 5.0 - 8.0 [facility] Urine sediment bacteria coun t by microscopy (number/high power field)Ordered By: Augie Vallejo on 07-30-2024 Bacteria LM.HPF (Urine sed) [#/Area] RARE /hpf None Seen [facility] Urine specific gravity measu rementOrdered By: Augie Vallejo on 07-30-2024 Specific gravity (U) [Rel density] 1.015 1.002-1.030 [facility] Urine urobilinogen measureme ntOrdered By: Augie Vallejo on 07-30-2024 Urobilinogen Ql (U) Normal mg/dl Normal [facility] Urobilinogen Ql (U)Ordered B y: Augie Vallejo on 07-30-2024 Urine Urobilinogen Normal mg/dl Normal [facility] White blood cell (WBC) count Ordered By: Augie Vallejo on 07-30-2024 WBC (Bld) [#/Vol] 9.0 10*3/uL 4.4-11.0 [facility] White blood cell countOrdere d By: Augie Vallejo on 07-30-2024 Urine WBC 10-25 SEEN /hpf 0-5 [facility] White blood cell count 10-25 SEEN /hpf 0-5 [facility] hCG Titer Quant., Serumon HCG QUANT. 4688 mIU/mL High 1-3 [facility] Comment on above: Result Comment: hCG levels with Gestational AgeGestational Age hCG mIU/mL (IU/L)0.2 - 1 week 5 - 501-2 weeks 50 - 5002-3 weeks 100 - 51210-2 weeks 500 - 976574-9 weeks 1000 - 327841-7 weeks 37910 - 100,0006-8 weeks 81975 - 200,0002-3 months 18285 - 100,000 Performed By: #### L 700.8000 ####[facility] [address] [place], [address] B-HCG SerPl-aCncon 5 HCG.beta subunit Qn 2994.0 m[IU]/mL High <5.0 [facility] Comment on above: Order Comment: Speci men Type: BLOOD SPECIMEN Ordering Facility: [facility] Address: [address] [place] [address] Result Comment: EDDIE TITATIVE HCG NORMAL RANGES Weeks of Gestation (Weeks Since LMP) 3 Weeks (5.8-71.2 mIU/mL) 4 Weeks (9.5-750 mIU/mL) 5 Weeks (217-7138 mIU/mL) 6 Weeks (158-60881 mIU/mL) 7 Weeks (3697-118543 mIU/mL) 8 Weeks (56007-570464 mIU/mL) 9 Weeks (62273-270106 mIU/mL) 10 Weeks (00270-174132 mIU/mL) 12 Weeks (05646-229020 mIU/mL) Referenced to 4th IS of [facility] Performed By: #### 2 1198-7 #### [facility] CLIA [id number] [address] [place] [address] STATES OF [facility] Bianka 07-28-2024 CNPN Telephone (UCWSTR) -------- PARVIN ALLEN ([id number]) 1995 F Date Time Provider Department 07/28/24 JUAN ALBERTO LOCKHART [facility] During your visit today, we recorded the following information about you: Juan Alberto Lockhart PA 07/28/2024 6:05 PM Signed Please let patient know she has no UTI. Follow-up with PCP for persistent symptoms Esther Duckworth MA 07/28/2024 7:16 PM Signed Unable to reach patient. Mailbox full/Mailbox not set up/ Number incorrect. Please try again later. KIMMIE Copeland Brandi, LPN 07/30/2024 12:04 PM Signed Pt viewed her results on Mychart 07/30 Mila Schmidt LPN Allergies As of Date: 07/28/2024 (No Known Allergies) Date Reviewed: 07/27/2024 Reviewed by: Esther Duckworth MA - Fully Assessed Reason for Visit: Results [95] Prescriptions as of 07/30/2024 - vit no.868-xmkq-fesiy ( VITAMIN) 27 mg iron- 800 mcg tab Take 1 tablet by mouth once daily. - albuterol HFA (VENTOLIN HFA) 90 mcg/actuation inhaler Inhale 2 Puffs as instructed every 4 hours as needed for Wheezing/Shortness of Breath. Problem List As Of Date 07/28/2024 Noted Resolved RUQ pain [R10.11] 12/29/2015 Anxiety and depression [F41.9, F32.A] 12/09/2017 Mood disorder (HCC) [F39] 12/09/2017 Short interval between pregnancies affecting pr*07/04/2018 04/14/2019 Previous delivery affecting ,*07/04/2018 04/14/2019 Hx of preeclampsia, prior , currently *07/04/2018 04/14/2019 History of gestational diabetes in prior pregna*07/04/2018 04/14/2019 Nausea and vomiting in [O21.9] 07/04/2018 04/14/2019 History of depression [Z86.59] 07/04/2018 Family history of Down syndrome [Z82.79] 07/04/2018 04/14/2019 Patient requested diagnostic testing [Z01.89] 07/04/2018 FHx: BRCA gene positive [Z84.81] 07/08/2018 Anemia affecting in first trimester [*07/09/2018 Mild intermittent asthma, uncomplicated [J45.20]11/07/2020 Encounter Status:Closed by MILA SCHMIDT on 07/30/24 Normal [facility] Ur Culton Bacteria identified Cx Nom (U) ORGANISM ID: 1 10,000 -<50,000 CFU/ml Normal urogenital negra Normal [facility] Comment on above: Performed By: #### 6 30-4 #### [facility] CLIA [id number] [address] [place] [address] OF [facility] CNOVon 07-27-2024 CNOV Office Visit (UCWSTR ) -------- PARVIN ALLEN ([id number]) 1995 F Date Time Provider Department 07/27/24 1:45 PM PERRY DELCID WSTR During your visit today, we recorded the following information about you: Temperature Pulse Respiration Blood pressure 98.5 degrees 84/minute 16/minute 110/68 Weight 102.6 kg Perry Delcid APRN.DASHBOARD DEVELOPER 07/27/2024 1:41 PM Signed CC: Patient presents with: Urinary Frequency: burning with urination x 1 day Denies risk of std, patient is not sure how far along she is. Is trying to get established with an OB. HPI Parvin Allen is a 28 year old female who presents with complaint of possible UTI. These symptoms have been present for 1 days. Associated symptoms: burning and frequency Denies: backpain, hematuria, pressure, fever, chills, sweats, abdominal pain, and flank pain Treatments: antibiotics The ROS was otherwise negative. PMH, Medications, labs, allergies, and recent past visits with PCP were reviewed and updated as able. PHYSICAL EXAM: BP 110/68 Pulse 84 Temp 36.9 ?C (98.5 ?F) Resp 16 Wt 102.6 kg (226 lb 3.1 oz) LMP 06/30/2024 (Exact Date) SpO2 99% BMI 41.10 kg/m? General: Well appearing and alert CV: Regular rate and rhythm without obvious murmur Lungs: clear to auscultation bilaterally Back: straight and symmetric Abdomen: soft, nontender, nondistended PAST MEDICAL HISTORY Diagnosis Date Anemia Anxiety [...] has no known allergies. MEDICATIONS albuterol HFA (VENTOLIN HFA) 90 mcg/actuation inhaler Inhale 2 Puffs as instructed every 4 hours as needed for Wheezing/Shortness of Breath. FAMILY HISTORY Problem Relation Age of Onset [...] Never Smokeless tobacco: Never Vaping Use Vaping status: Never Used Substance Use Topics Alcohol use: No Drug use: No ASSESSMENT/PLAN: 1. Urinary frequency - ICD9: 788.41, ICD10: R35.0 - UA DIP, URINE (POC) - BACTERIAL CULTURE, URINE Treatment was given today. If patient is positive after urine culture comes back for UTI please treat accordingly. Keflex is good UTI antibiotic for . . Potential red flag symptoms discussed with the patient. Reviewed appropriate action plan to take if red flag symptoms occur. Patient agreeable to treatment plan. Perry Delcid APRN.DASHBOARD DEVELOPER Allergies As of Date: 07/27/2024 (No Known Allergies) Date Reviewed: 07/27/2024 Reviewed by: Esther Duckworth MA - Fully Assessed Reason for Visit: Urinary Frequency [1086] Cmt: burning with urination x 1 day Primary Visit Diagnosis:Urinary frequency [R35.0] Order(s):UA DIP, URINE (POC) [8771366] Order #: [id number]. #:[id number] [id number] BACTERIAL CULTURE, URINE [SQURCUL] Order #: [id number]. #:[id number] Prescriptions as of 07/27/2024 - albuterol HFA (VENTOLIN HFA) 90 mcg/actuation inhaler Inhale 2 Puffs as instructed every 4 hours as needed for Wheezing/Shortness of Breath. Problem List As Of Date 07/27/2024 Noted Resolved RUQ pain [R10.11] 12/29/2015 Anxiety and depression [F41.9, F32.A] 12/09/2017 Mood disorder (HCC) [F39] 12/09/2017 Short interval between pregnancies affecting pr*07/04/2018 04/14/2019 Previous delivery affecting ,*07/04/2018 04/14/2019 Hx of preeclampsia, prior , currently *07/04/2018 04/14/2019 History of gestational diabetes in prior pregna*07/04/2018 04/14/2019 Nausea and vomiting in [O21.9] 07/04/2018 04/14/2019 History of depression [Z86.59] 07/04/2018 Family history of Down syndrome [Z82.79] 07/04/2018 04/14/2019 Patient requested diagnostic testing [Z01.89] 07/04/2018 FHx: BRCA gene positive [Z84.81] 07/08/2018 Anemia affecting in first trimester [*07/09/2018 Mild intermittent asthma, uncomplicated [J45.20]11/07/2020 Encounter Status:Closed by BRISEIDA DELCID (more content not included)... Normal [facility] Bianka 07-27-2024 CNPN Telephone (OBGYWM) -------- PARVIN ALLEN ([id number]) 1995 F Date Time Provider Department 07/27/24 LUNDBERG, MICHELLE OBGYWM During your visit today, we recorded the following information about you: Roxana Turpin RN 07/27/2024 9:30 AM Signed LMP 05/29/24 - 8w3d Calling requesting hcg quants. Not having any pain, bleeding, cramping or other concerns. Had miscarriage in March of last year and is very anxious (did not see this office for that missed ab- saw [facility], but they no longer accept her insurance). NOB scheduled for 08/10/24. KARUNA Grant Jessica, APRN.MAGGY 07/27/2024 1:47 PM Signed Please have patient schedule virtual or in person appointment to discuss and can order at that time. Thanks, Michelle Lundberg APRN.Irma Sepulveda RN 07/27/2024 1:56 PM Signed Patient notified and voiced understanding. Virtual visit appointment scheduled per request. KARUNA Herrera Lindsey, RN 07/27/2024 5:10 PM Signed Patient is scheduled for virtual visit with on 07/29 at 7 am to discuss early concerns. Attempted to contact patient at request of provider to see if she would like to just move her New OB appointment up to be seen sooner. NOA has availability on 07/29 and CP has spot on 07/31. Left message to call office. Irma Wilson RN Allergies As of Date: 07/27/2024 (No Known Allergies) Date Reviewed: 07/27/2024 Reviewed by: Esther Duckworth MA - Fully Assessed Reason for Visit: Patient Question [0077] Prescriptions as of 07/27/2024 - albuterol HFA (VENTOLIN HFA) 90 mcg/actuation inhaler Inhale 2 Puffs as instructed every 4 hours as needed for Wheezing/Shortness of Breath. Problem List As Of Date 07/27/2024 Noted Resolved RUQ pain [R10.11] 12/29/2015 Anxiety and depression [F41.9, F32.A] 12/09/2017 Mood disorder (HCC) [F39] 12/09/2017 Short interval between pregnancies affecting pr*07/04/2018 04/14/2019 Previous delivery affecting ,*07/04/2018 04/14/2019 Hx of preeclampsia, prior , currently *07/04/2018 04/14/2019 History of gestational diabetes in prior pregna*07/04/2018 04/14/2019 Nausea and vomiting in [O21.9] 07/04/2018 04/14/2019 History of depression [Z86.59] 07/04/2018 Family history of Down syndrome [Z82.79] 07/04/2018 04/14/2019 Patient requested diagnostic testing [Z01.89] 07/04/2018 FHx: BRCA gene positive [Z84.81] 07/08/2018 Anemia affecting in first trimester [*07/09/2018 Mild intermittent asthma, uncomplicated [J45.20]11/07/2020 Encounter Status:Closed by IRMA WILSON on 07/27/24 Normal [facility] UA DIP, URINE (POC)on 2024 BILIRUBIN UA (POCT) Small Abnormal Negative [facility] CLARITY UA (POCT) Clear [facility] COLOR UA (POCT) Yellow [facility] GLUCOSE UA (POCT) Negative Negative mg/dL [facility] Hemoglobin Ql (U) Negative Negative [facility] Interpretation and review of laboratory results Abnormal [facility] KETONE UA (POCT) Negative Negative mg/dL [facility] LEUKOCYTES UA (POCT) Small Abnormal Negative [facility] NITRITE UA (POCT) Negative Negative [facility] PH UA (POCT) 5.5 4.5 - 8.0 [facility] Protein Ql (U) Trace Abnormal Negative mg/dL [facility] SPECIFIC GRAVITY UA (POCT) >=1.030 1.005 - 1.030 [facility] UROBILINOGEN UA (POCT) 0.2 Deborah l E.U./dL [facility] Location: [place], [address], [place], [address] [facility] POINT OF CARE [facility] CNOVon 07-02-2024 CNOV Office Visit (UCWSTR ) -------- PARVIN ALLEN ([id number]) 1995 F Date Time Provider Department 07/02/24 9:15 AM JUAN ALBERTO LOCKHART [facility] During your visit today, we recorded the following information about you: Temperature Pulse Respiration Blood pressure 98.1 degrees 70/minute 18/minute 114/77 Weight Last Period 103 kg 06/30/24 Juan Alberto Lockhart, MICHAEL 07/02/2024 9:41 AM Signed This note was created using [employer]. Subjective Parvin Allen is a 28 year old female. HPI 28-year-old female presents for dental pain. Patient states that she broke off her tooth about 2 weeks ago. She states that her gum is now swollen and painful over the past 3 days. She denies any fevers. Still able to eat and drink. She states that she does have a dentist, but they do not pull teeth, so she is waiting to get into an oral surgeon. She denies any other complaint. Not or breast-feeding PAST MEDICAL HISTORY Diagnosis Date Anemia Anxiety [...] has no known allergies. MEDICATIONS albuterol HFA (VENTOLIN HFA) 90 mcg/actuation inhaler Inhale 2 Puffs as instructed every 4 hours as needed for Wheezing/Shortness of Breath. amoxicillin-clavulanate potassium (AUGMENTIN) 875-125 mg per tablet Take 1 tablet by mouth two times a day for 7 days. FAMILY HISTORY Problem Relation Age of [...] Never Smokeless tobacco: Never Vaping Use Vaping status: Never Used Substance Use Topics Alcohol use: No Drug use: No Review of Systems Constitutional: Negative for chills and fever. HENT: Positive for dental problem. Negative for congestion, ear pain and sore throat. Respiratory: Negative for cough and shortness of breath. Cardiovascular: Negative for chest pain. Gastrointestinal: Negative for diarrhea and vomiting. Objective BP 114/77 Pulse 70 Temp 36.7 ?C (98.1 ?F) Resp 18 Wt 103 kg (227 lb 1.2 oz) LMP 06/30/2024 (Exact Date) SpO2 100% BMI 41.26 kg/m? Physical Exam Vitals and nursing note reviewed. Constitutional: General: She is not in acute distress. Appearance: Normal appearance. She is not toxic-appearing. HENT: Nose: Nose normal. Mouth/Throat: Mouth: Mucous membranes are moist. Dentition: Abnormal dentition. Dental tenderness, gingival swelling and dental caries present. No dental abscesses. Pharynx: Oropharynx is clear. Uvula midline. Comments: Patient has broken tooth #30. Dental decay in this tooth. Surrounding gingival swelling. No abscess. No tongue or floor of mouth swelling. Throat clear. Eyes: Conjunctiva/sclera: Conjunctivae normal. Cardiovascular: Rate and Rhythm: Normal rate and regular rhythm. Pulmonary: Effort: Pulmonary effort is normal. Breath sounds: Normal breath sounds. Skin: General: Skin is warm and dry. Neurological: Mental Status: She is alert. Assessment and Plan ASSESSMENT/PLAN: 1. Dental infection - ICD9: 522.4, ICD10: K04.7 -Rx for Augmentin -Tylenol/Motrin for pain. -Ice -Schedule follow-up with your dentist. Diagnosis and treatment plan were discussed and questions were answered to the patient's satisfaction. Pt acknowledged understanding of concepts and follow up plan. Specific signs and symptoms that would indicate the need for higher level of care were discussed in detail warranting prompt ER evaluation. MICHAEL Null Allergies As of Date: 07/02/2024 (No Known Allergies) Date Reviewed: 07/02/2024 Reviewed by: Mila Schmidt LPN - Fully Assessed Reason for Visit: Dental Problem [31] Cmt: R lower back tooth broken off, x 3 days Primary Visit Diagnosis:Dental infection [K04.7] Order(s):amoxicillin-cla vulanate potassium (AUGMENTIN) 875-125 mg per tabletTake 1 tablet by mouth two times a day for 7 days.Disp: 14 tabletRfl: 0 Prescriptions as of 07/02/2024 - amoxicillin-clavulanate potassium (AUGMENTIN) 875-125 (more content not included)... Normal [facility] 12 Lead EKGon 04-03-2024 12 Lead EKG Normal [facility] Basic Metabolic Profile (BMP )on 04-03-2024 BUN/CRE 18.2 RATIO Normal 10-20 [facility] Comment on above: Order Comment: 'TROP ' Serial specimen #1, #2 or #3: 1 Performed By: #### L 501.4020, L500.2500, L100.0100 ####[facility] [address] [place], [address] CA,Total 9.4 mg/dL Normal 8.5-10.1 [facility] Comment on above: Order Comment: 'TROP ' Serial specimen #1, #2 or #3: 1 Performed By: #### L 501.4020, L500.2500, L100.0100 ####[facility] [address] [place], [address] Chloride [Moles/Vol] 105 mmol/L Normal 98-107 [facility] Comment on above: Order Comment: 'TROP ' Serial specimen #1, #2 or #3: 1 Performed By: #### L 501.4020, L500.2500, L100.0100 ####[facility] [address] [place], [address] CO2 [Moles/Vol] 28.0 mmol/L Normal 21.0-32.0 [facility] Comment on above: Order Comment: 'TROP ' Serial specimen #1, #2 or #3: 1 Performed By: #### L 501.4020, L500.2500, L100.0100 ####[facility] [address] [place], [address] Creatinine [Mass/Vol] 0.82 mg/dL Normal 0.55-1.02 [facility] Comment on above: Order Comment: 'TROP ' Serial specimen #1, #2 or #3: 1 Result Comment: The validity of the calculated GFR GFRAA in patients over70 years has not been determined. Clinical correlation isessential. Performed By: #### L 501.4020, L500.2500, L100.0100 ####[facility] [address] [place], [address] ECRCL 111.80 ml/min Normal [facility] Comment on above: Order Comment: 'TROP ' Serial specimen #1, #2 or #3: 1 Performed By: #### L 501.4020, L500.2500, L100.0100 ####[facility] [address] [place], [address] EST GFR - AA 105 mL/min Normal >60 [facility] Comment on above: Order Comment: 'TROP ' Serial specimen #1, #2 or #3: 1 Result Comment: Afri can Peruvian GFR Calc Performed By: #### L 501.4020, L500.2500, L100.0100 ####[facility] [address] [place], [address] GAP 6 Normal 5-15 [facility] Comment on above: Order Comment: 'TROP ' Serial specimen #1, #2 or #3: 1 Performed By: #### L 501.4020, L500.2500, L100.0100 ####[facility] [address] [place], [address] GFR/1.73 sq M.predicted among non-blacks MDRD (S/P/Bld) [Vol rate/Area] 87 mL/min/{1.73_m2} Normal >60 [facility] Comment on above: Order Comment: 'TROP ' Serial specimen #1, #2 or #3: 1 Result Comment: Non- GFR Calc Performed By: #### L 501.4020, L500.2500, L100.0100 ####[facility] [address] [place], [address] Glucose [Mass/Vol] 108 mg/dL High 74-106 [facility] Comment on above: Order Comment: 'TROP ' Serial specimen #1, #2 or #3: 1 Result Comment: Fast ing Glucose result from 100 to 125 mg/dLsuggests IMPAIRED HOMEOSTASIS per A.D.A. criteria. Performed By: #### L 501.4020, L500.2500, L100.0100 ####[facility] [address] [place], [address] Potassium [Moles/Vol] 3.3 mmol/L Low 3.5-5.1 [facility] Comment on above: Order Comment: 'TROP ' Serial specimen #1, #2 or #3: 1 Performed By: #### L 501.4020, L500.2500, L100.0100 ####[facility] [address] [place], [address] Sodium [Moles/Vol] 139 mmol/L Normal 136-145 [facility] Comment on above: Order Comment: 'TROP ' Serial specimen #1, #2 or #3: 1 Performed By: #### L 501.4020, L500.2500, L100.0100 ####[facility] [address] [place], [address] Urea nitrogen [Mass/Vol] 15 mg/dL Normal 7-18 [facility] Comment on above: Order Comment: 'TROP ' Serial specimen #1, #2 or #3: 1 Performed By: #### L 501.4020, L500.2500, L100.0100 ####[facility] [address] [place], [address] CBC W/Diff, Automatedon 10-0 4-4 Absolute Lymph 1.78 X10 3/uL Normal 0.83-4.51 [facility] Comment on above: Performed By: #### L 501.4020, L500.2500, L100.0100 ####[facility] [address] [place], [address] Absolute Neut 6.2 X10 3/uL Normal 2.0-7.7 [facility] Comment on above: Performed By: #### L 501.4020, L500.2500, L100.0100 ####[facility] [address] [place], [address] Basophils/100 WBC (Bld) 0.5 % Normal 0-1 [facility] Comment on above: Performed By: #### L 501.4020, L500.2500, L100.0100 ####[facility] [address] [place], [address] Eosinophils/100 WBC (Bld) 2.8 % Normal 0-5 [facility] Comment on above: Performed By: #### L 501.4020, L500.2500, L100.0100 ####[facility] [address] [place], [address] Erythrocyte distribution width (RBC) [Ratio] 17.2 % High 11.6-14.6 [facility] Comment on above: Performed By: #### L 501.4020, L500.2500, L100.0100 ####[facility] [address] [place], [address] Hematocrit (Bld) [Volume fraction] 33.1 % Low 37-47 [facility] Comment on above: Performed By: #### L 501.4020, L500.2500, L100.0100 ####[facility] [address] [place], [address] Hemoglobin (Bld) [Mass/Vol] 9.6 g/dL Low 12.0-15.0 [facility] Comment on above: Performed By: #### L 501.4020, L500.2500, L100.0100 ####[facility] [address] [place], [address] IG% 0.600 Normal 0.0-0.9 [facility] Comment on above: Result Comment: IG% - Immature Granulocytes (promyelocytes, myelocytes andmetamyelocytes) > 1% indicates that a LEFT SHIFT is Present. Performed By: #### L 501.4020, L500.2500, L100.0100 ####[facility] [address] [place], [address] Lymphocytes/100 WBC (Bld) 20.4 % Normal 19-41 [facility] Comment on above: Performed By: #### L 501.4020, L500.2500, L100.0100 ####[facility] [address] [place], [address] MCH (RBC) [Entitic mass] 20.9 pg Low 27.0-32.0 [facility] Comment on above: Performed By: #### L 501.4020, L500.2500, L100.0100 ####[facility] [address] [place], [address] MCHC (RBC) [Mass/Vol] 29.0 g/dL Low 32-36 [facility] Comment on above: Performed By: #### L 501.4020, L500.2500, L100.0100 ####[facility] [address] [place], [address] MCV (RBC) [Entitic vol] 72.0 fL Low 81-99 [facility] Comment on above: Performed By: #### L 501.4020, L500.2500, L100.0100 ####[facility] [address] [place], [address] Monocytes/100 WBC (Bld) 4.9 % Normal 0-10 [facility] Comment on above: Performed By: #### L 501.4020, L500.2500, L100.0100 ####[facility] [address] [place], [address] Neutrophils/100 WBC (Bld) 70.8 % High 47-70 [facility] Comment on above: Performed By: #### L 501.4020, L500.2500, L100.0100 ####[facility] [address] [place], [address] Nucleated RBC (Bld) [#/Vol] 0 10*3/uL Normal 0-5 [facility] Comment on above: Performed By: #### L 501.4020, L500.2500, L100.0100 ####[facility] [address] [place], [address] Platelet mean volume (Bld) [Entitic vol] 9.6 fL Normal 6.2-12.0 [facility] Comment on above: Performed By: #### L 501.4020, L500.2500, L100.0100 ####[facility] [address] [place], [address] Platelets (Bld) [#/Vol] 542 10*3/uL High 150-450 [facility] Comment on above: Performed By: #### L 501.4020, L500.2500, L100.0100 ####[facility] [address] [place], [address] RBC (Bld) [#/Vol] 4.60 10*6/uL Normal 4.2-5.4 [facility] Comment on above: Performed By: #### L 501.4020, L500.2500, L100.0100 ####[facility] [address] [place], [address] RDW SD 44.0 fl High 35.1-43.9 [facility] Comment on above: Performed By: #### L 501.4020, L500.2500, L100.0100 ####[facility] [address] [place], [address] WBC (Bld) [#/Vol] 8.7 10*3/uL Normal 4.4-11.0 [facility] Comment on above: Performed By: #### L 501.4020, L500.2500, L100.0100 ####[facility] [address] [place], [address] CTA Chest W/WO Contraston CTA Chest W/WO Contrast Normal [facility] Chest PA and Lateralon 04-03 Chest PA and Lateral Normal [facility] D-Dimer Quantitative (DVT/PE )on 04-03-2024 D-DIMER QUANT 0.54 FEU/ug/m Invalid Interpretation Code 0.27-0.49 [facility] Comment on above: Order Comment: CRITI GARY VALUE CALLED TO [id number]/04/24 Paulino Lopez.RESULTS READ BACK BY SAME. Result Comment: D-Di cedrick ELEVATED (>0.49): Additional studies and clinicalassessments are indicated to conclude diagnosis of:Deep Vein Thrombosis (DVT) or Pulmonary Embolism (PE) Performed By: #### L 300.8000 ####[facility] [address] [place], [address] Emergency Department Summary on 04-03-2024 Emergency Department Summary Normal [facility] L501.4020on 04-03-2024 TROPONIN-I HS 4 pg/mL Normal 3.0-54.0 [facility] Comment on above: Order Comment: 'TROP ' Serial specimen #1, #2 or #3: 1 Result Comment: Plea se Note: New Test Units and Gender Specific Reference Ranges. For more information see Policy Stat Procedure [place] High Sensitivity Troponin (TNIH) and attachments. Performed By: #### L 501.4020, L500.2500, L100.0100 ####[facility] [address] [place], [address] ,Urineon 04-03-2024 Beta HCG ( test) Ql (U) Positive Abnormal [facility] Comment on above: Order Comment: CLEAN CATCH Result Comment: PREG WALTER TEST is *POSITIVE*CRITICAL VALUE CALLED TO [id number]/04/24 Jack Lopez.RESULTS READ BACK BY SAME. Performed By: #### L 400.7600, L400.0001 ####[facility] [address] [place], [address] Urinalysis, Completeon 04-03 AMORPHOUS 2+ Normal [facility] Comment on above: Order Comment: CLEAN CATCH Performed By: #### L 400.7600, L400.0001 ####[facility] [address] [place], [address] EPI,SQUAMOUS 0-5 SEEN Normal 5-10 [facility] Comment on above: Order Comment: CLEAN CATCH Performed By: #### L 400.7600, L400.0001 ####[facility] [address] [place], [address] WBC 0-5 SEEN Normal 0-5 [facility] Comment on above: Order Comment: CLEAN CATCH Performed By: #### L 400.7600, L400.0001 ####[facility] [address] [place], [address] BACTERIA 0 SEEN Normal None Seen [facility] Comment on above: Order Comment: CLEAN CATCH Performed By: #### L 400.7600, L400.0001 ####[facility] [facility] [id number] [place], [address] Mucus Ql (Urine sed) [address] [facility] Comment on above: Order Comment: CLEAN CATCH Performed By: #### [id number], [id number] ####[facility] [id number] [place], [address] RBC 0 SEEN Normal 0-5 [facility] Comment on above: Order Comment: CLEAN CATCH Performed By: #### L [id number], [id number] ####[facility] [id number] [place], [address] [facility] Office Visit Reporton 03-30-2024 [facility] Reader Office Visit Report Normal [facility] Office Visit Reporton 03-23-2024 [facility] Office Visit Report Normal [facility] Transvaginal w/Preg USon Transvaginal w/Preg US Normal [facility] Film Reader Office Visit Reporton 03-20-2024 Film Reader Office Visit Report Normal [facility] XR ANKLE MINIMUM 3 VIEWS LEF Ton 11-12-2023 XR ANKLE MINIMUM 3 VIEWS LEFT ORIGINAL EXAMINATION: THREE XRAY VIEWS OF THE LEFT ANKLE TECHNIQUE: Lateral view of the left ankle COMPARISON: Same day left ankle HISTORY: ORDERING SYSTEM PROVIDED HISTORY: Reason for Exam: lateral view repeat only FINDINGS: The previously seen cortical discontinuity involving the posterior talar process is less suspicious for fracture. Slight cortical thickening at this location may reflect the sequela of remote trauma. Redemonstrated are mild plantar and retrocalcaneal degenerative enthesopathy changes. No significant soft tissue swelling. IMPRESSION: Previously seen cortical discontinuity involving the posterior talar process is less suspicious for fracture. Slight cortical thickening at this location may reflect the sequela of remote trauma. Interpreted by: Earle Martin MD Preliminary Report By: Earle Martin MD Electronically signed By Earle Martin MD Dictated Date: 11/12/2023 10:33:17 AM Prelim Date: 11/12/2023 10:35:33 AM Sign Date: 11/12/2023 10:35:33 AM Ordering Provider: MICKEY Redd [facility] ([place]) XR ANKLE MINIMUM 3 VIEWS LEFT ORIGINAL EXAMINATION: THREE XRAY VIEWS OF THE LEFT ANKLE11/12/2023 9:49 am COMPARISON: None. HISTORY: ORDERING SYSTEM PROVIDED HISTORY: Reason for Exam: Lateral ankle pain FINDINGS: Cortical discontinuity involving the posterior talar process is seen on the lateral view. No significant soft tissue swelling or joint effusion. Small posterior and plantar calcaneal enthesophyte. The joint spaces are preserved and normal alignment. No appreciable widening of the ankle mortise. No suspicious osseous lesion. IMPRESSION: Cortical discontinuity involving the posterior talar process seen on the lateral view. The lateral view is slightly suboptimal. This may reflect a nondisplaced fracture or os trigonum. A repeat lateral view was requested by this radiologist. An addendum will be generated once completed. I have personally reviewed the images of this examination and agree with the resident's findings and interpretation. Interpreted by: Earle Martin MD Preliminary Report By: Korin Bailey Electronically signed By Earle Martin MD Dictated Date: 11/12/2023 9:55:21 AM Prelim Date: 11/12/2023 10:08:39 AM Sign Date: 11/12/2023 10:08:39 AM Ordering Provider: MICKEY FOREMAN [facility] ([place]) Laboratory - Chemistry and C hemistry - challengeOrdered By: Leann Nguyen on 10-31-2023 HCG ( test) Ql (U) Negative [facility] Comment on above: Very dilute urine sp ecimens, as indicated by a low specificgravity, may not contain auto claim representative levels of hCG. If is still suspected, a first morning urinespecimen should be collected 48 hours later and tested. Absolute lymphocyte countOrd ered By: Guy Cotton on 10-18-2023 Lymphocytes Auto (Unsp spec) [#/Vol] 1.07 10*3/uL 0.83-4.51 [facility] Automated lymphocyte count a s percentage of total leukocytesOrdered By: Guy Cotton on 10-18-2023 Lymphocytes/100 WBC Auto (Unsp spec) 26.2 % 19-41 [facility] Basophil percentageOrdered B y: Guy Cotton on 10-18-2023 Basophils/100 WBC (Bld) 0.7 % 0-1 [facility] Bilirubin [Mass/Vol] 0.20 mg/dL 0.20-1.00 [facility] Comment on above: For patients on eltr ombopag therapy, use of Dimension [place] TBIL is not recommended. Chloride [Moles/Vol] 109 mmol/L 98-107 [facility] Cholesterol [Mass/Vol] 149 mg/dL <200 [facility] Comment on above: <200 mg/dL Desirable 200-240 mg/dL Borderline >240 mg/dL High Risk Eosinophils/100 WBC (Bld) 9.6 % 0-5 [facility] Glucose [Mass/Vol] 83 mg/dL 74-106 [facility] Hemoglobin (Bld) [Mass/Vol] 10.2 g/dL 12.0-15.0 [facility] Monocytes/100 WBC (Bld) 12.5 % 0-10 [facility] Neutrophils (Bld) [#/Vol] 2.1 10*3/uL 2.0-7.7 [facility] Neutrophils/100 WBC (Bld) 50.8 % 47-70 [facility] Potassium [Moles/Vol] 3.9 mmol/L 3.5-5.1 [facility] Protein [Mass/Vol] 7.6 g/dL 6.4-8.2 [facility] Sodium [Moles/Vol] 138 mmol/L 136-145 [facility] Triglyceride [Mass/Vol] 92 mg/dL <199 [facility] Comment on above: The drugs N-Acetylcy steine and Metamizole may falsely depress this assay.Serum Triglycerides Reference Interval Normal <150 mg/dL Borderline high 150 - 199 mg/dL High 200 - 499 mg/dL Very High > or = 500 mg/dL WBC (Bld) [#/Vol] 4.1 10*3/uL 4.4-11.0 [facility] Determination of erythrocyte mean corpuscular volume (MCV)Ordered By: Guy Cotton on 10-18-2023 MCV (RBC) [Entitic vol] 73.1 fL 81-99 [facility] Erythrocyte distribution wid th ratioOrdered By: Guy Cotton on 10-18-2023 Erythrocyte distribution width (RBC) [Ratio] 17.0 % 11.6-14.6 [facility] Erythrocyte distribution wid th standard deviationOrdered By: Guy Cotton on 10-18-2023 Erythrocyte distribution width (RBC) [Entitic vol] 44.6 fL 35.1-43.9 [facility] Hematocrit Auto (Bld) [Volum e fraction]Ordered By: Guy Cotton on 10-18-2023 Hematocrit (Bld) [Volume fraction] 34.7 % 37-47 [facility] Immature granulocytes/100 WB C Auto (Bld)Ordered By: Guy Cotton on 10-18-2023 Immature granulocytes/100 WBC (Bld) 0.200 % 0.0-0.9 [facility] Comment on above: IG% - Immature Granu locytes (promyelocytes, myelocytes and metamyelocytes) > 1% indicates that a LEFT SHIFT is Present. Iron measurement (mass/mass) Ordered By: Guy Cotton on 10-18-2023 Iron (Unsp spec) [Mass/Mass] 16 ug/dL 50-170 [facility] Laboratory - Chemistry and C hemistry - challengeOrdered By: Guy Cotton on 10-18-2023 Albumin/Globulin [Mass ratio] 0.7 {ratio} 0.9-2.4 [facility] ALP [Catalytic activity/Vol] 88 U/L 45-117 [facility] ALT [Catalytic activity/Vol] 24 U/L 13-56 [facility] Cholesterol in HDL [Mass/Vol] 42 mg/dL >40 [facility] Comment on above: The drugs N-Acetylcy steine and Metamizole may falsely depress this assay. Reference Range HDL <40 mg/dL Low HDL Cholesterol HDL >or= 60 mg/dL High HDL Cholesterol Cholesterol in LDL [Mass/Vol] 89 mg/dL 0-130 [facility] CO2 [Moles/Vol] 25.0 mmol/L 21.0-32.0 [facility] Ferritin [Mass/Vol] 20 ng/mL 8-252 [facility] Globulin (S) [Mass/Vol] 4.6 g/dL 2.2-4.2 [facility] Urea nitrogen/Creatinine [Mass ratio] 10.8 mg/mg 10-20 [facility] Laboratory - Hematology and Cell countsOrdered By: Guy Cotton on 10-18-2023 MCH (RBC) [Entitic mass] 21.5 pg 27.0-32.0 [facility] MCHC (RBC) [Mass/Vol] 29.4 g/dL 32-36 [facility] Nucleated RBC/100 WBC (Bld) [Ratio] 0 % 0-5 [facility] Platelet mean volume (Bld) [Entitic vol] 10.8 fL 6.2-12.0 [facility] Platelets (Bld) [#/Vol] 338 10*3/uL 150-450 [facility] Laboratory - Microbiology an d Antimicrobial susceptibilityOrdered By: Guy Cotton on 10-18-2023 SARS-CoV-2 (COVID-19) RNA MICHELLE+probe Ql (Unsp spec) [facility] No Panel InformationOrdered By: Guy Cotton on 10-18-2023 Estimated GFR (MDRD) Amer 120 mL/min >60 [facility] Comment on above: GFR Calc Estimated GFR (MDRD) Non-Af Amer 99 mL/min >60 [facility] Comment on above: Non- GFR Calc Total Iron Binding Capacity 415 ug/dL 250-450 [facility] VLDL Cholesterol 18 mg/dL 5-40 [facility] RBC Auto (Bld) [#/Vol]Ordere d By: Guy Cotton on 10-18-2023 RBC (Bld) [#/Vol] 4.75 10*6/uL 4.2-5.4 [facility] Serum or plasma calcium erica urement (mass/volume)Ordered By: uGy Cotton on 10-18-2023 Calcium [Mass/Vol] 8.7 mg/dL 8.5-10.1 [facility] Serum or plasma creatinine m easurement (mass/volume)Ordered By: Guy Cotton on 10-18-2023 Creatinine [Mass/Vol] 0.74 mg/dL 0.55-1.02 [facility] Comment on above: The validity of the calculated GFR & GFRAA in patients over 70 years has not been determined. Clinical correlation is essential. Serum or plasma thyroid stim ulating hormone (TSH) measurement (units/volume)Ordered By: Guy Cotton on 10-18-2023 TSH Qn 1.47 uIU/mL 0.358-3.74 [facility] Serum or plasma urea nitroge n measurement (mass/volume)Ordered By: Guy Cotton on 10-18-2023 Urea nitrogen [Mass/Vol] 8 mg/dL 7-18 [facility] Thin prep Papanicolaou smear with manual screeningOrdered By: Guy Cotton on 10-18-2023 Thin prep Papanicolaou smear with manual screening 3.0 g/dL 3.2-5.0 [facility] Thin prep Papanicolaou smear with manual screening 17 U/L 15-37 [facility] Thin prep Papanicolaou smear with manual screening 4 5-15 [facility] Thin prep Papanicolaou smear with manual screening 0.95 ng/dL 0.76-1.46 [facility] Whole blood hemoglobin A1c/t otal hemoglobin ratio (mass fraction)Ordered By: Guy Cotton on 10-18-2023 HbA1c (Bld) [Mass fraction] 5.3 % 3.8-5.6 [facility] Comment on above: Normal < 5.7 % Predi abetic 5.7 - 6.4 % Diabetic >or= 6.5 % Please note range changes. Serum or plasma choriogonado tropin detectionOrdered By: Rose Marie Morales on 09-19-2023 HCG ( test) Ql < 1 mIU/mL <4 [facility] Comment on above: hCG levels with Gest ational AgeGestational Age hCG mIU/mL (IU/L)0.2 - 1 week 5 - 501-2 weeks 50 - 5002-3 weeks 100 - 52852-2 weeks 500 - 103609-5 weeks 1000 - 135363-8 weeks 37195 - 100,0006-8 weeks 81982 - 200,0002-3 months 12650 - 100,000 STREP A MOLECULAR (POC)on Procedural Control Valid [facility] Strep A (POCT) Positive Abnormal Negative [facility] Culture, urineOrdered By: Adam Nielsen on 05-10-2023 Bacteria identified Cx Nom (U) Positive [facility] Laboratory - Chemistry and C hemistry - challengeOrdered By: James Garcia on 05-10-2023 Cobalamin (Vitamin B12) [Mass/Vol] 316 pg/mL 211-911 [facility] No Panel InformationOrdered By: James Garcia on 05-10-2023 Intrinsic Factor Antibody 1.0 AU/mL 0.0-1.1 [facility] Comment on above: Performed at: [address] [id number] Director: Jay Choi MD, Phone: [phone] at: [address] [id number] Director: Segundo Bartlett PhD, Phone: [phone] Miscellaneous Test [facility] Comment on above: TEST RESULTS LIMITSI BD Expanded PanelgASCA 29 units 0-50 Negative: <45 Equivocal: 45-50 Positive: >50ACCA 11 units 0-90 Negative: <80 Equivocal: 80-90 Positive: >90ALCA 8 units 0-60 Negative:<55 Equivocal: 55-60 Positive: >60AMCA 16 units 0-100 Negative: <90 Equivocal: 90-100 Positive: >100 This test was developed and its performance characteristics determined by [facility]. It has not been cleared or approved by the Food and Drug Administration. The FDA has determined that such clearance or approval is not necessary.Atypical pANCA Negative NegativeCommentsPattern is not suggestive of Inflammatory Bowel Disease. TESTING PERFORMED AT [facility]. ORIGINAL REPORT ON FILE IN LAB CONTAINS ADDITIONAL TEST SITE INFORMATION. Serum or plasma choriogonado tropin detectionOrdered By: Renetta Nielsen on 05-10-2023 HCG ( test) Ql < 1 mIU/mL <4 [facility] Comment on above: hCG levels with Gest ational AgeGestational Age hCG mIU/mL (IU/L)0.2 - 1 week 5 - 501-2 weeks 50 - 5002-3 weeks 100 - 69941-3 weeks 500 - 545931-7 weeks 1000 - 693895-1 weeks 05920 - 100,0006-8 weeks 43110 - 200,0002-3 months 18540 - 100,000 Serum or plasma folate measu rement (mass/volume)Ordered By: James Garcia on 05-10-2023 Folate [Mass/Vol] 10.60 ng/mL 3.1-55.4 [facility] Serum or plasma gastrin erica urement (mass/volume)Ordered By: James Garcia on 05-10-2023 Gastrin [Mass/Vol] 14 pg/mL 0-115 [facility] Comment on above: Siemens Immulite 200 0 Immunochemiluminometric assay (ICMA)Values obtained with different assay methods or kits cannotbe used interchangeably. Results cannot be interpreted asabsolute evidence of the presence or absence of malignantdisease. Serum parietal cell antibody assay (units/volume)Ordered By: James Garcia on 05-10-2023 Parietal cell Ab Qn (S) 8.6 Units 0.0-20.0 [facility] Comment on above: Negative 0.0 - 20.0 Equivocal 20.1 - 24.9 Positive >24.9Parietal Cell Antibodies are found in 90% of patientswith pernicious anemia and 30% of first degreerelatives with pernicious anemia. Absolute lymphocyte countOrd ered By: Chey Lanier on 04-29-2023 Lymphocytes Auto (Unsp spec) [#/Vol] 1.95 10*3/uL 0.83-4.51 [facility] Basophil percentageOrdered B y: Chey Lanier on 04-29-2023 Basophil percentage 0 SEEN /hpf 0-5 [facility] Basophils/100 WBC (Bld) 0.8 % 0-1 [facility] Chloride [Moles/Vol] 107 mmol/L 98-107 [facility] Eosinophils/100 WBC (Bld) 4.4 % 0-5 [facility] Glucose [Mass/Vol] 102 mg/dL 74-106 [facility] Comment on above: Fasting Glucose resu lt from 100 to 125 mg/dL suggests IMPAIRED HOMEOSTASIS per A.D.A. criteria. Neutrophils (Bld) [#/Vol] 4.5 10*3/uL 2.0-7.7 [facility] Neutrophils/100 WBC (Bld) 62.2 % 47-70 [facility] Potassium [Moles/Vol] 3.5 mmol/L 3.5-5.1 [facility] Sodium [Moles/Vol] 141 mmol/L 136-145 [facility] WBC (Bld) [#/Vol] 7.2 10*3/uL 4.4-11.0 [facility] Beta hCG serum qualOrdered B y: Chey Lanier on 04-29-2023 Beta HCG ( test) Ql Negative [facility] Bilirubin Test strip Ql (U)O rdered By: Chey Lanier on 04-29-2023 Bilirubin Ql (U) Negative Negative [facility] Blood erythrocytes count (nu mber/volume)Ordered By: Chey Lanier on 04-29-2023 RBC (Bld) [#/Vol] 4.91 10*6/uL 4.2-5.4 [facility] Blood hemoglobin measurement (mass/volume)Ordered By: Chey Lanier on 04-29-2023 Hemoglobin (Bld) [Mass/Vol] 10.7 g/dL 12.0-15.0 [facility] Blood lymphocytes/100 leukoc ytesOrdered By: Chey Lanier on 04-29-2023 Lymphocytes/100 WBC (Bld) 27.1 % 19-41 [facility] Blood monocytes/100 leukocyt esOrdered By: Chey Lanier on 04-29-2023 Monocytes/100 WBC (Bld) 5.1 % 0-10 [facility] Blood platelet mean volumeOr dered By: Chey Lanier on 04-29-2023 Platelet mean volume (Bld) [Entitic vol] 9.8 fL 6.2-12.0 [facility] Determination of erythrocyte mean corpuscular volume (MCV)Ordered By: Chey Lanier on 04-29-2023 MCV (RBC) [Entitic vol] 72.7 fL 81-99 [facility] Hematocrit Auto (Bld) [Volum e fraction]Ordered By: Chey Lanier on 04-29-2023 Hematocrit (Bld) [Volume fraction] 35.7 % 37-47 [facility] Ketones Test strip Ql (U)Ord ered By: Chey Lanier on 04-29-2023 Ketones Ql (U) Negative Negative [facility] Laboratory - Chemistry and C hemistry - challengeOrdered By: Chey Lanier on 04-29-2023 CO2 [Moles/Vol] 31.0 mmol/L 21.0-32.0 [facility] Urea nitrogen/Creatinine [Mass ratio] 16.2 mg/mg 10-20 [facility] Laboratory - Hematology and Cell countsOrdered By: Chey Lanier on 04-29-2023 Erythrocyte distribution width (RBC) [Entitic vol] 43.7 fL 35.1-43.9 [facility] Erythrocyte distribution width (RBC) [Ratio] 16.6 % 11.6-14.6 [facility] Immature granulocytes/100 WBC (Bld) 0.400 % 0.0-0.9 [facility] Comment on above: IG% - Immature Granu locytes (promyelocytes, myelocytes and metamyelocytes) > 1% indicates that a LEFT SHIFT is Present. MCH (RBC) [Entitic mass] 21.8 pg 27.0-32.0 [facility] Nucleated RBC/100 WBC (Bld) [Ratio] 0 % 0-5 [facility] MCHC Auto (RBC) [Mass/Vol]Or dered By: Chey Lanier on 04-29-2023 MCHC (RBC) [Mass/Vol] 30.0 g/dL 32-36 [facility] Mucus LM Ql (Urine sed)Order ed By: Chey Lanier on 04-29-2023 Mucus Ql (Urine sed) 0 SEEN /hpf [facility] Nitrite Test strip Ql (U)Ord ered By: Chey Lanier on 04-29-2023 Nitrite Ql (U) Negative Negative [facility] No Panel InformationOrdered By: Chey Lanier on 04-29-2023 Estimated Creatinine Clearance Calc 77.03 ml/min [facility] Estimated GFR (MDRD) Amer 100 mL/min >60 [facility] Comment on above: GFR Calc Estimated GFR (MDRD) Non-Af Amer 83 mL/min >60 [facility] Comment on above: Non- GFR Calc Platelets bldOrdered By: Tammy Lanier on 04-29-2023 Platelets (Bld) [#/Vol] 400 10*3/uL 150-450 [facility] Protein Test strip Ql (U)Ord ered By: Chey Lanier on 04-29-2023 Protein Ql (U) Negative Negative [facility] Serum or plasma calcium erica urement (mass/volume)Ordered By: Chey Lanier on 04-29-2023 Calcium [Mass/Vol] 9.1 mg/dL 8.5-10.1 [facility] Serum or plasma creatinine m easurement (mass/volume)Ordered By: Chey Lanier on 04-29-2023 Creatinine [Mass/Vol] 0.86 mg/dL 0.55-1.02 [facility] Comment on above: The validity of the calculated GFR & GFRAA in patients over 70 years has not been determined. Clinical correlation is essential. Serum or plasma urea nitroge n measurement (mass/volume)Ordered By: Chey Lanier on 04-29-2023 Urea nitrogen [Mass/Vol] 14 mg/dL 7-18 [facility] Squamous epithelial cells de tection in urine sediment by light microscopyOrdered By: Chey Lanier on 04-29-2023 Epithelial cells.squamous LM Ql (Urine sed) 5-10 SEEN /hpf 5-10 [facility] Thin prep Papanicolaou smear with manual screeningOrdered By: Chey Lanier on 04-29-2023 Thin prep Papanicolaou smear with manual screening 3 5-15 [facility] Urine blood detectionOrdered By: Chey Lanier on 04-29-2023 RBC Ql (U) Negative Negative [facility] RBC Ql (U) 0 SEEN /hpf 0-5 [facility] Urine clarityOrdered By: Tammy Lanier on 04-29-2023 Clarity (U) Clear Clear [facility] Urine color determinationOrd ered By: Chey Lanier on 04-29-2023 Color (U) Yellow Yellow [facility] Urine glucose detectionOrder ed By: Chey Lanier on 04-29-2023 Glucose Ql (U) Normal mg/dl Normal [facility] Urine leukocyte esterase det ection by dipstickOrdered By: Chey Lanier on 04-29-2023 Leukocyte esterase Test strip Ql (U) Negative Negative [facility] Urine pHOrdered By: Chey Lanier on 04-29-2023 pH (U) 6.5 [pH] 5.0 - 8.0 [facility] Urine sediment bacteria coun t by microscopy (number/high power field)Ordered By: Chey Lanier on 04-29-2023 Bacteria LM.HPF (Urine sed) [#/Area] 0 /[HPF] None Seen [facility] Urine specific gravity measu rementOrdered By: Chey Lanier on 04-29-2023 Specific gravity (U) [Rel density] 1.015 1.002-1.030 [facility] Urobilinogen Auto test strip Ql (U)Ordered By: Chey Lanier on 04-29-2023 Urobilinogen Ql (U) Normal mg/dl Normal [facility] No Panel Informationon 03-12 POC SARS CoV-2 Antigen Negative [facility] Basophil percentageOrdered B y: Jeremiah Edmondson on 02-07-2023 Basophil percentage 10-25 SEEN /hpf 0-5 [facility] Bilirubin Test strip Ql (U)O rdered By: Jeremiah Edmondson on 02-07-2023 Bilirubin Ql (U) Negative Negative [facility] Ketones Test strip Ql (U)Ord ered By: Jeremiah Edmondson on 02-07-2023 Ketones Ql (U) 5 mg/dl Negative [facility] Mucus LM Ql (Urine sed)Order ed By: Jeremiah Edmondson on 02-07-2023 Mucus Ql (Urine sed) 0 SEEN /hpf [facility] Nitrite Test strip Ql (U)Ord ered By: Jeremiah Edmondson on 02-07-2023 Nitrite Ql (U) Negative Negative [facility] Protein Test strip Ql (U)Ord ered By: Jeremiah Edmondson on 02-07-2023 Protein Ql (U) 30 mg/dl Negative [facility] Squamous epithelial cells de tection in urine sediment by light microscopyOrdered By: Jeremiah Edmondson on 02-07-2023 Epithelial cells.squamous LM Ql (Urine sed) 10-25 SEEN /hpf 5-10 [facility] Urine blood detectionOrdered By: Jeremiah Edmondson on 02-07-2023 RBC Ql (U) Negative Negative [facility] RBC Ql (U) 0 SEEN /hpf 0-5 [facility] Urine clarityOrdered By: Phillip Edmondson on 02-07-2023 Clarity (U) Sl. Cloudy Clear [facility] Urine color determinationOrd ered By: Jeremiah Edmondson on 02-07-2023 Color (U) Yellow Yellow [facility] Urine glucose detectionOrder ed By: Jeremiah Edmondson on 02-07-2023 Glucose Ql (U) Normal mg/dl Normal [facility] Urine leukocyte esterase det ection by dipstickOrdered By: Jeremiah Edmondson on 02-07-2023 Leukocyte esterase Test strip Ql (U) 500 /ul Negative [facility] Urine pHOrdered By: eJremiah carrasco on 02-07-2023 pH (U) 6.0 [pH] 5.0 - 8.0 [facility] Urine sediment bacteria coun t by microscopy (number/high power field)Ordered By: Jeremiah Edmondson on 02-07-2023 Bacteria LM.HPF (Urine sed) [#/Area] 1 /[HPF] None Seen [facility] Urine specific gravity measu rementOrdered By: Jeremiah Edmondson on 02-07-2023 Specific gravity (U) [Rel density] 1.020 1.002-1.030 [facility] Urobilinogen Auto test strip Ql (U)Ordered By: Jeremiah Edmondson on 02-07-2023 Urobilinogen Ql (U) Normal mg/dl Normal [facility] XR SPINE LUMBAR W/OBLIQUES 4 VIEWSon 02-03-2023 XR SPINE LUMBAR W/OBLIQUES 4 VIEWS ORIGINAL EXAMINATION: 5 XRAY VIEWS OF THE LUMBAR SPINE02/01/2023 11:56 am LUMBAR SPINE W/ OBLIQUES COMPARISON: 10/23/2019 HISTORY: ORDERING SYSTEM PROVIDED HISTORY: Reason for Exam: lumbar pain FINDINGS: There are five lumbar-type vertebral bodies. The vertebral body heights are maintained. The intervertebral disc spaces are preserved. There is no significant spondylolisthesis. There is no spondylolysis. The sacroiliac joints are normal. IMPRESSION: No compression deformity or significant listhesis. Interpreted by: Karsten Veloz MD Preliminary Report By: Karsten Veloz MD Electronically signed By Karsten Veloz MD Dictated Date: 02/03/2023 11:44:00 PM Prelim Date: 02/03/2023 11:50:33 PM Sign Date: 02/03/2023 11:50:33 PM Ordering Provider: PILO ARMAS Normal [facility] ([place]) Laboratory - Chemistry and C hemistry - challengeOrdered By: Douglas Gray on 01-17-2023 HCG ( test) Ql (U) Negative [facility] Comment on above: Very dilute urine sp ecimens, as indicated by a low specificgravity, may not contain auto claim representative levels of hCG. If is still suspected, a first morning urinespecimen should be collected 48 hours later and tested. Absolute lymphocyte countOrd ered By: Lorrie Arce on 11-15-2022 Lymphocytes Auto (Unsp spec) [#/Vol] 1.66 10*3/uL 0.83-4.51 [facility] Basophil percentageOrdered B y: Lorrie Arce on 11-15-2022 Basophils/100 WBC (Bld) 0.6 % 0-1 [facility] Bilirubin [Mass/Vol] 0.20 mg/dL 0.20-1.00 [facility] Comment on above: For patients on eltr ombopag therapy, use of Dimension [place] TBIL is not recommended. Chloride [Moles/Vol] 108 mmol/L 98-107 [facility] Eosinophils/100 WBC (Bld) 3.0 % 0-5 [facility] Glucose [Mass/Vol] 93 mg/dL 74-106 [facility] Neutrophils (Bld) [#/Vol] 4.2 10*3/uL 2.0-7.7 [facility] Neutrophils/100 WBC (Bld) 65.4 % 47-70 [facility] Potassium [Moles/Vol] 3.7 mmol/L 3.5-5.1 [facility] Protein [Mass/Vol] 7.6 g/dL 6.4-8.2 [facility] Sodium [Moles/Vol] 140 mmol/L 136-145 [facility] WBC (Bld) [#/Vol] 6.4 10*3/uL 4.4-11.0 [facility] Blood erythrocytes count (nu mber/volume)Ordered By: Lorrie Arce on 11-15-2022 RBC (Bld) [#/Vol] 4.83 10*6/uL 4.2-5.4 [facility] Blood hemoglobin measurement (mass/volume)Ordered By: Lorrie Arce on 11-15-2022 Hemoglobin (Bld) [Mass/Vol] 10.8 g/dL 12.0-15.0 [facility] Blood lymphocytes/100 leukoc ytesOrdered By: Lorrie Arce on 11-15-2022 Lymphocytes/100 WBC (Bld) 26.1 % 19-41 [facility] Blood monocytes/100 leukocyt esOrdered By: Lorrie Arce on 11-15-2022 Monocytes/100 WBC (Bld) 4.7 % 0-10 [facility] Blood platelet mean volumeOr dered By: Lorrie Arce on 11-15-2022 Platelet mean volume (Bld) [Entitic vol] 10.1 fL 6.2-12.0 [facility] Determination of erythrocyte mean corpuscular volume (MCV)Ordered By: Lorrie Arce on 11-15-2022 MCV (RBC) [Entitic vol] 72.7 fL 81-99 [facility] Hematocrit Auto (Bld) [Volum e fraction]Ordered By: Lorrie Arce on 11-15-2022 Hematocrit (Bld) [Volume fraction] 35.1 % 37-47 [facility] Hemoglobin in reticulocytes (mass per reticulocyte)Ordered By: Lorrie Arce on 11-15-2022 Hemoglobin (Reticulocytes) [Entitic mass] 22.6 pg 30-35 [facility] Iron measurement (mass/mass) Ordered By: Lorrie Arce on 11-15-2022 Iron (Unsp spec) [Mass/Mass] 20 ug/dL 50-170 [facility] Laboratory - Chemistry and C hemistry - challengeOrdered By: Lorrie Arce on 11-15-2022 ALP [Catalytic activity/Vol] 103 U/L 45-117 [facility] ALT [Catalytic activity/Vol] 21 U/L 13-56 [facility] CO2 [Moles/Vol] 25.0 mmol/L 21.0-32.0 [facility] Globulin (S) [Mass/Vol] 4.5 g/dL 2.2-4.2 [facility] Urea nitrogen/Creatinine [Mass ratio] 14.0 mg/mg 10-20 [facility] Laboratory - Hematology and Cell countsOrdered By: Lorrie Arce on 11-15-2022 Erythrocyte distribution width (RBC) [Entitic vol] 45.2 fL 35.1-43.9 [facility] Erythrocyte distribution width (RBC) [Ratio] 17.2 % 11.6-14.6 [facility] Immature granulocytes/100 WBC (Bld) 0.200 % 0.0-0.9 [facility] Comment on above: IG% - Immature Granu locytes (promyelocytes, myelocytes and metamyelocytes) > 1% indicates that a LEFT SHIFT is Present. MCH (RBC) [Entitic mass] 22.4 pg 27.0-32.0 [facility] Nucleated RBC/100 WBC (Bld) [Ratio] 0 % 0-5 [facility] MCHC Auto (RBC) [Mass/Vol]Or dered By: Lorrie Arce on 11-15-2022 MCHC (RBC) [Mass/Vol] 30.8 g/dL 32-36 [facility] No Panel InformationOrdered By: Shreya Pham on 11-15-2022 Miscellaneous Test See comment [facility] Comment on above: Sent directly to [facility] per ordering physician. Dehydroepiandrosterone Sulfate 298.0 ug/dL 84.8-378.0 [facility] Thyroid Stimulating Hormone (TSH) 1.94 uIU/mL 0.358-3.74 [facility] No Panel InformationOrdered By: Lorrie Arce on 11-15-2022 Endomysial IgA Antibody Negative Negative [facility] Estimated GFR (MDRD) Amer 112 mL/min >60 [facility] Comment on above: GFR Calc Estimated GFR (MDRD) Non-Af Amer 93 mL/min >60 [facility] Comment on above: Non- GFR Calc Immature Reticulocyte Fraction 13.80 % 3.00-15.90 [facility] Reticulocyte Count 1.31 % 0.5-1.5 [facility] Total Iron Binding Capacity 404 ug/dL 250-450 [facility] Platelets bldOrdered By: Kat Arce on 11-15-2022 Platelets (Bld) [#/Vol] 348 10*3/uL 150-450 [facility] Serum IgA measurement (units /volume)Ordered By: Lorrie Arce on 11-15-2022 IgA Qn (S) 174 mg/dL 87-352 [facility] Comment on above: Performed at: [facility] [id number] [place], [place] [id number] Director: Segundo Bartlett PhD, Phone: [phone] Serum or plasma albumin erica urement (mass/volume)Ordered By: Lorrie Arce on 11-15-2022 Albumin [Mass/Vol] 3.1 g/dL 3.2-5.0 [facility] Serum or plasma albumin/glob ulin mass ratioOrdered By: Lorrie Arce on 11-15-2022 Albumin/Globulin [Mass ratio] 0.7 {ratio} 0.9-2.4 [facility] Serum or plasma calcium erica urement (mass/volume)Ordered By: Lorrie Arce on 11-15-2022 Calcium [Mass/Vol] 8.5 mg/dL 8.5-10.1 [facility] Serum or plasma creatinine m easurement (mass/volume)Ordered By: Lorrie Arce on 11-15-2022 Creatinine [Mass/Vol] 0.79 mg/dL 0.55-1.02 [facility] Comment on above: The validity of the calculated GFR & GFRAA in patients over 70 years has not been determined. Clinical correlation is essential. Serum or plasma ferritin isabel surement (mass/volume)Ordered By: Lorrie Arce on 11-15-2022 Ferritin [Mass/Vol] 15 ng/mL 8-252 [facility] Serum or plasma iron saturat ion measurement (mass fraction)Ordered By: Lorrie Acre on 11-15-2022 Iron saturation [Mass fraction] 5.0 % 15.0-55.0 [facility] Serum or plasma prolactin me asurement (mass/volume)Ordered By: Shreya Pham on 11-15-2022 Prolactin [Mass/Vol] 7.2 ng/mL [facility] Comment on above: NORMAL REFERENCE RAN GES FEMALE NON- 2.2 - 30.3 ng/mL 8.1 - 347.6 ng/mL POST-MENOPAUSAL 0.7 - 31.5 ng/mL MALE 2.5 - 17.4 ng/mL Serum or plasma testosterone free measurement (mass/volume)Ordered By: Shreya Pham on 11-15-2022 Testosterone Free [Mass/Vol] 1.0 pg/mL 0.0-4.2 [facility] Comment on above: Performed at: [id number] [place], [place] [id number] Director: Segundo Bartlett PhD, Phone: [phone] at: - [facility] [id number] Director: Jay Choi MD, Phone: [phone] Serum or plasma urea nitroge n measurement (mass/volume)Ordered By: Lorrie Arce on 11-15-2022 Urea nitrogen [Mass/Vol] 11 mg/dL 7-18 [facility] Serum tissue transglutaminas e IgA antibody assay (units/volume)Ordered By: Lorrie Arce on 11-15-2022 tTG IgA Qn (S) <2 U/mL 0-3 [facility] Comment on above: Negative 0 - 3 Weak Positive 4 - 10 Positive >10 Tissue Transglutaminase (tTG) has been identified as the endomysial antigen. Studies have demonstr- ated that endomysial IgA antibodies have over 99% specificity for gluten sensitive enteropathy. Thin prep Papanicolaou smear with manual screeningOrdered By: Lorrie Arce on 11-15-2022 Thin prep Papanicolaou smear with manual screening 13 U/L 15-37 [facility] Thin prep Papanicolaou smear with manual screening 7 5-15 [facility] Cervical or vagninal specime n microscopic examination by cytology stain (reported asOrdered By: Shreya Pham on 10-29-2022 Cytology report Cyto stain Doc (Cvx/Vag) Comment . [facility] Comment on above: The Pap smear is a s creening test designed to aid in thedetection of premalignant and malignant conditions of theuterine cervix. It is not a diagnostic procedure andshould not be used as the sole means of detecting cervicalcancer. Both false-positive and false-negative reports dooccur. Laboratory - CytologyOrdered By: Shreya Pham on 10-29-2022 Boat Officer Cyto stain Nom (Cvx/Vag) [ID] Comment . [facility] Comment on above: Moses Lee totechnologist Laboratory - Miscellaneous t estsOrdered By: Shreya Pham on 10-29-2022 Service comment (Unsp spec) [Interp] Comment . [facility] Comment on above: This liquid based Th inPrep(R) pap test was screened withthe use of an image guided system. Service comment (Unsp spec) [Interp] . . [facility] No Panel InformationOrdered By: Shreya Pham on 10-29-2022 Human Papillomavirus Screen Comment . [facility] Comment on above: The HPV DNA reflex c riteria were not met with this specimenresult therefore, no HPV testing was performed.Performed at: [facility] [address] [id number] Director: Valentine Watts MD, Phone: [phone] Pathology report final diagnosis Narrative Comment . [facility] Comment on above: NEGATIVE FOR INTRAEP ITHELIAL LESION OR MALIGNANCY. Office Visiton 10-10-2022 Follow-up visit [id number] Parvin De Oliveira 1995 F Date Provider Department Center 10/10/2022 Artem[address] [facility] None No family history on file Level of Service:[id number] [place] OFFICE/OUTPATIENT [facility] 30-44 MINUTES Reason for Visit and Comments: New Patient [[id number]] [facility] Progress Noteon 10-10-2022 Progress Note Department of Plasti c Surgery - Adult Attending Consult Note Reason for Consult: symptomatic macromastia CHIEF COMPLAINT: symptomatic macromastia History Obtained From: patient HISTORY OF PRESENT ILLNESS: The patient is a 26 y.o. female who presents with bilateral macromastia causing shoulder, back and neck pain and rashes beneath her breasts. BMI is 42.91, patient states that weight has been overall stable Patient has had two C-sections, desires another Otherwise denies medical problems, has asthma treated with albuterol listed Has healed well from previous surgeries No bleeding disorders or history of blood clots No reactions to anesthetic Past Medical History: Past Medical History: Diagnosis Date Anemia Asthma History of asthma Hx of migraines Morbid obesity with BMI of 40.0-44.9, adult ([facility]) Past Surgical History: Past Surgical History: Procedure Laterality Date CYST REMOVAL right cheeck TONSILLECTOMY (HISTORICAL) Current Medications: Current Outpatient Medications on File Prior to Visit Medication Sig Dispense Refill albuterol 108 (90 Base) MCG/ACT inhaler Inhale 2 puffs every 6 hours as needed. No current facility-administered medications on file prior to visit. Allergies: Patient has no known allergies. Social History: Social History Socioeconomic History Marital status: Spouse name: Not on file Number of children: Not on file Years of education: Not on file Highest education level: Not on file Occupational History Not on file Tobacco Use Smoking status: Never Smokeless tobacco: Never Substance and Sexual Activity Alcohol use: Yes Drug use: Yes Types: Marijuana Sexual activity: Not on file Other Topics Concern Not on file Social History Narrative Not on file Social Determinants of Health Financial Resource Strain: Not on file Food Insecurity: Not on file Transportation Needs: Not on file Physical Activity: Not on file Stress: Not on file Social Connections: Not on file Intimate Partner Violence: Not on file Housing Stability: Not on file Family History: No family history on file. REVIEW OF SYSTEMS: Negative except as stated in HPI PHYSICAL EXAM: VITALS: Ht 5' 2 (1.575 m) Wt 234 lb 9.6 oz (106 kg) BMI 42.91 kg/m? CONSTITUTIONAL: awake, alert, cooperative, no apparent distress, and appears stated age LUNGS: breathing comfortably on room air CARDIOVASCULAR: hemodynamically stable ABDOMEN: deferred EXTREMITIES: no signs of clubbing or cyanosis. MUSCULOSKELETAL: negative for flaccid muscle tone or spastic movements. SKIN: gross examination reveals no signs of rashes, or diaphoresis. NEURO: grossly intact and symmetric Breast exam deferred today IMPRESSION/RECOMMENDATIO NS: Diagnosis: 1-bilateral macromastia Patient currently not a candidate for bilateral breast reduction given BMI 42.91. I explained that for anesthetic safety and optimized wound healing I recommend a BMI 35 prior to proceeding with the breast reduction. I also explained that weight fluctuations including with pregnancies would change the result of the breast reduction. The patient is understanding. Referral to weight management placed. Follow up in December. Radha Gastelum MD Time attestation: I spent 30 minutes obtaining history, reviewing imaging and laboratory results, performing a physical exam and providing patient education and counseling. Normal [facility] XR Lumbar spine 3 Viewson IMPRESSION: Mild disc space narrowing at L5/S1 Rehab Aid: JOHANNY Transcribe Date/Time: Jul 16 2022 1:25P Dictated by : MICHELLE ARAUJO MD This examination was interpreted and the report reviewed and electronically signed by: MICHELLE ARAUJO MD on Jul 16 2022 1:26PM [facility] DIVISION OF RADIOLOGY * * *Final Report* * * DATE OF EXAM: Jul 16 2022 1:15PM WOX 5228 - XR LUMBAR 3V AP/LAT/L5-S1 / PROCEDURE REASON: Lumbar back pain with radiculopathy affecting lower extremity * * * * Physician Interpretation * * * * TITLE: XR LUMBAR 3V AP/LAT/L5-S1 CLINICAL INDICATION: Back pain TECHNIQUE: 3 view radiographic study of the lumbar spine COMPARISON: None FINDINGS: For the purposes of this report, L4/L5 will be at the level of the iliac crests. Preservation of the normal lumbar lordosis. Preservation of vertebral body height. Mild disc space narrowing at L5/S1. No spondylolisthesis. DIVISION OF RADIOLOGY Provider, [facility] - 07/16/2022 * * *Final Report* * * DATE OF EXAM: Jul 16 2022 1:15PM WOX 5228 - XR LUMBAR 3V AP/LAT/L5-S1 / PROCEDURE REASON: Lumbar back pain with radiculopathy affecting lower extremity * * * * Physician Interpretation * * * * TITLE: XR LUMBAR 3V AP/LAT/L5-S1 CLINICAL INDICATION: Back pain TECHNIQUE: 3 view radiographic study of the lumbar spine COMPARISON: None FINDINGS: For the purposes of this report, L4/L5 will be at the level of the iliac crests. Preservation of the normal lumbar lordosis. Preservation of vertebral body height. Mild disc space narrowing at L5/S1. No spondylolisthesis. IMPRESSION IMPRESSION: Mild disc space narrowing at L5/S1 Rehab Aid: PSCB Transcribe Date/Time: Jul 16 2022 1:25P Dictated by : MICHELLE ARAUJO MD This examination was interpreted and the report reviewed and electronically signed by: MICHELLE ARAUJO MD on Jul 16 2022 1:26PM [facility] Radiology Study observation (narrative) Trudi [facility] XR Lumbar spine 3 ViewsOrder ed By: Cc Provider on 07-16-2022 [facility] LABORATORYOrdered By: SYSTEM SYSTEM on 06-18-2022 Albumin BCP dye [Mass/Vol] 3.1 G/dL Invalid Interpretation Code 3.5 - 5.0 G/dL AO ADM SS Albumin/Globulin [Mass ratio] 0.8 {ratio} Invalid Interpretation Code 1.1 - 2.5 ratio AO ADM SS ALP [Catalytic activity/Vol] 100 U/L Invalid Interpretation Code 40 - 135 U/L AO ADM SS ALT With P-5'-P [Catalytic activity/Vol] 25 U/L Invalid Interpretation Code 14 - 59 U/L AO ADM SS AST With P-5'-P [Catalytic activity/Vol] 30 U/L Invalid Interpretation Code 10 - 40 U/L AO ADM SS Bilirubin [Mass/Vol] 0.2 mg/dL Invalid Interpretation Code 0.2 - 1.0 mg/dL AO ADM SS Calcium [Mass/Vol] 8.9 mg/dL Invalid Interpretation Code 8.4 - 10.2 mg/dL AO ADM SS Chloride [Moles/Vol] 105 mmol/L Invalid Interpretation Code 98 - 107 mmol/L AO ADM SS CO2 [Moles/Vol] 28 mmol/L Invalid Interpretation Code 22 - 29 mmol/L AO ADM SS Creatinine [Mass/Vol] 0.74 mg/dL Invalid Interpretation Code 0.55 - 1.02 mg/dL AO ADM SS Electrolyte Balance 8.0 mEq/L Invalid Interpretation Code 4.0 - 15.0 mEq/L AO ADM SS Free T4 [Mass/Vol] 0.83 ng/dL Invalid Interpretation Code 0.76 - 1.46 ng/dL AO ADM SS GFR 114 ml/min/1.73sqm Invalid Interpretation Code AO Chemistry S GFR Non- 94 ml/min/1.73sqm Invalid Interpretation Code AO Chemistry S Globulin 3.9 G/dL Invalid Interpretation Code AO ADM SS Glucose [Mass/Vol] 100 mg/dL Invalid Interpretation Code 70 - 105 mg/dL AO ADM SS Potassium [Moles/Vol] 4.7 mmol/L Invalid Interpretation Code 3.5 - 5.1 mmol/L AO ADM SS Protein [Mass/Vol] 7.0 G/dL Invalid Interpretation Code 6.4 - 8.2 G/dL AO ADM SS Sodium [Moles/Vol] 141 mmol/L Invalid Interpretation Code 136 - 145 mmol/L AO ADM SS TSH Qn 3.62 m[IU]/L Invalid Interpretation Code 0.36 - 3.74 mcIU/mL AO ADM SS Urea nitrogen [Mass/Vol] 12 mg/dL Invalid Interpretation Code 7 - 18 mg/dL AO ADM SS Urea nitrogen/Creatinine [Mass ratio] 16 ratio Invalid Interpretation Code 7 - 27 ratio AO ADM SS LABORATORYOrdered By: Elena Lester on 06-18-2022 Basophil, Absolute 0.0 103/mcL Invalid Interpretation Code 0.0 - 0.2 10^3/mcL AO Workflow SS Basophils/100 WBC (Bld) 0.5 % Invalid Interpretation Code 0.0 - 2.5 % AO Workflow SS Eosinophil, Absolute 0.3 103/mcL Invalid Interpretation Code 0.0 - 0.4 10^3/mcL AO Workflow SS Eosinophils/100 WBC (Bld) 4.3 % Invalid Interpretation Code 0.0 - 7.0 % AO Workflow SS Erythrocyte distribution width (RBC) [Ratio] 18.3 % Invalid Interpretation Code 11.5 - 14.5 % AO Workflow SS Hematocrit (Bld) [Volume fraction] 33.8 % Invalid Interpretation Code 37.0 - 47.0 % AO Workflow SS Hemoglobin (Bld) [Mass/Vol] 10.9 G/dL Invalid Interpretation Code 12.0 - 16.0 G/dL AO Workflow SS Lymphocyte, Absolute 2.0 103/mcL Invalid Interpretation Code 0.8 - 3.9 10^3/mcL AO Workflow SS Lymphocytes/100 WBC (Bld) 28.2 % Invalid Interpretation Code 10.0 - 50.0 % AO Workflow SS MCH (RBC) [Entitic mass] 22.3 pg Invalid Interpretation Code 27.0 - 31.2 pg AO Workflow SS MCHC 32.2 G/dL Invalid Interpretation Code 33.0 - 37.0 G/dL AO Workflow SS MCV (RBC) [Entitic vol] 69.3 fL Invalid Interpretation Code 80.0 - 94.0 fL AO Workflow SS Monocyte, Absolute 0.4 103/mcL Invalid Interpretation Code 0.2 - 1.0 10^3/mcL AO Workflow SS Monocytes/100 WBC (Bld) 5.8 % Invalid Interpretation Code 1.7 - 13.0 % AO Workflow SS Neutrophil, Absolute 4.4 103/mcL Invalid Interpretation Code 2.9 - 6.2 10^3/mcL AO Workflow SS Neutrophils/100 WBC (Bld) 61.2 % Invalid Interpretation Code 37.0 - 80.0 % AO Workflow SS Platelet Estimate Normal (06/18/22 7:49 AM) Invalid Interpretation Code AO Hematology S Platelet mean volume (Bld) [Entitic vol] 8.7 fL Invalid Interpretation Code 7.4 - 10.4 fL AO Workflow SS Platelets (Bld) [#/Vol] 358 103/mcL Invalid Interpretation Code 130 - 400 10^3/mcL AO Workflow SS RBC (Bld) [#/Vol] 4.88 106/mcL Invalid Interpretation Code 4.20 - 5.40 10^6/mcL AO Workflow SS WBC (Bld) [#/Vol] 7.3 103/mcL Invalid Interpretation Code 4.6 - 10.8 10^3/mcL AO Workflow SS LABORATORYOrdered By: Denny Buck on 06-18-2022 Fibrin D-dimer DDU (PPP) [Mass/Vol] 247 ng/mL D-DU Invalid Interpretation Code 0 - 230 ng/mL D-DU AO Coag SS XR Shoulder - left 3 Viewson 06-12-2021 IMPRESSION: No radiographic evidence of acute osseous abnormality Rehab Aid: JOHANNY Transcribe Date/Time: Jun 12 2021 10:21A Dictated by : MICHELLE ARAUJO MD This examination was interpreted and the report reviewed and electronically signed by: MICHELLE ARAUJO MD on Jun 12 2021 10:22AM [facility] DIVISION OF RADIOLOGY * * *Final Report* * * DATE OF EXAM: Jun 12 2021 10:19AM WOX 5252 - XR SHLDR >/=3V AP/YELITZA AP/OTHR LT / PROCEDURE REASON: Acute pain of left shoulder * * * * Physician Interpretation * * * * CLINICAL INDICATION: Shoulder pain TECHNIQUE: 3 view radiographic study of the left shoulder COMPARISON: None FINDINGS: No acute fracture or dislocation. Acromioclavicular joint intact. DIVISION OF RADIOLOGY Provider, [facility] - 06/12/2021 * * *Final Report* * * DATE OF EXAM: Jun 12 2021 10:19AM WOX 5252 - XR SHLDR >/=3V AP/YELITZA AP/OTHR LT / PROCEDURE REASON: Acute pain of left shoulder * * * * Physician Interpretation * * * * CLINICAL INDICATION: Shoulder pain TECHNIQUE: 3 view radiographic study of the left shoulder COMPARISON: None FINDINGS: No acute fracture or dislocation. Acromioclavicular joint intact. IMPRESSION IMPRESSION: No radiographic evidence of acute osseous abnormality Rehab Aid: JOHANNY Transcribe Date/Time: Jun 12 2021 10:21A Dictated by : MICHELLE ARAUJO MD This examination was interpreted and the report reviewed and electronically signed by: MICHELLE ARAUJO MD on Jun 12 2021 10:22AM EST [facility] Radiology Study observation (narrative) [facility] XR Shoulder - left 3 ViewsOr dered By: Ccf Provider on 06-12-2021 [facility] Glucose,Bedsideon 08-09-2017 Glucose mass conc 104 mg/dL High 70-100 [facility] Comment on above: Result Comment: Test performed by glucose meter. Results may be 10%-15% lowerthan serum/plasma values. (CLIA ID [id number]) Performed By: #### B GLU ####[address] [address] CR Chest Portableon 08-07-19 18 CR Chest Portable Patient Name: PARVIN DE OLIVEIRA Diagnostic Radiology Exam Date/Time 08/07/2017 09:01:15 EST Exam CR Chest Portable Ordering Physician MD CALLAWAY LAUREN MARIE Accession Number [id number] CPT4 Codes 29299 () Reason For Exam SOB Report PORTABLE [...] KEVIN Transcribed Date and Time: 08/07/2017 10:38 Normal [facility] Glucose,Bedsideon 08-07-2017 Glucose mass conc 116 mg/dL High 70-100 [facility] Comment on above: Result Comment: Test performed by glucose meter. Results may be 10%-15% lowerthan serum/plasma values. (CLIA ID [id number]) Performed By: #### B GLU ####[address] [place] [address] Glucose mass conc 119 mg/dL High 70-100 [facility] Comment on above: Result Comment: Test performed by glucose meter. Results may be 10%-15% lowerthan serum/plasma values. (CLIA ID [id number]) Performed By: #### B GLU ####[address] [place] [address] Glucose mass conc 139 mg/dL High 70-100 [facility] Comment on above: Result Comment: Test performed by glucose meter. Results may be 10%-15% lowerthan serum/plasma values. (CLIA ID [id number]) Performed By: #### B GLU ####[address] [place] [address] Glucose mass conc 179 mg/dL High 70-100 [facility] Comment on above: Result Comment: Test performed by glucose meter. Results may be 10%-15% lowerthan serum/plasma values. (CLIA ID [id number]) Performed By: #### B GLU ####[address] [place] [address] Hemoglobinon 08-07-2017 Hemoglobin mass conc (Bld) 7.7 g/dL Low 11.7-16.0 [facility] Comment on above: Performed By: #### B GLU ####[address] [place] [address] MFM-USon 08-07-2017 M-US PATIENT: SHYAM DE OLIVEIRA DATE: 08/05/2017MR #: [id number] : 1995 AGE: 22Electronically AuthenticatedIvon Wilder DO 12/16/2017 11:07 AREFERRING PHYSICIAN: Dr. DayICATIONS:ULTRASON OGRAPHIC FINDINGS:There is a ziegler fetus in cephalic presentation. heart motion ispresent at 161 beats per minute. movement is normal. Amniotic fluidis polyhydramnios with a deepest vertical pocket of 8.19 cm. Total AFImeasures 21.7 cm. Placenta is posterior. Right ovary is not wellvisualized. Left ovary appears normal. anatomy is limited bymaternal body habitus and gestational age. However, no gross anatomicaldefects were noted. biometry; BPD 8.91 cm at 36 weeks and 0 days.Head circumference 31.34 cm at 35 weeks 1 day. Abdominal lilmvsgohgskn96.64 cm greater than the 99th percentile at 37 weeks and 4 days. Femurlength 6.3 cm at 32 weeks 4 days. Tibula 5.31 cm at 31 weeks and 3 days.Fibula 5.11 cm at 31 weeks and 1 day. Humeral length at 5.38 cm at 31weeks and 1 day. Lateral ventricle 5.79 mm 31 weeks 2 days. Estimatedfetal weight 2802 g 6 pounds 3 ounces which is at the 94.3 percentile forgestational age.INTERPRETATION:See inpatient chart.Ultrasound is not diagnostic of chromosomal aneuploidy and does not detectall subtle defects. Normal ultrasound findings do not guarantee a normalpregnancy outcome.Diskriter Job ID: [id number] Ivon Wilder, DODOD:08/07/2017 12:54 P KBW/dskDOT:08/08/2017 04:22 Acc: Louann Babin DO [address] [place] [address] [address] [facility] [address] Ivon Wilder, [facility] [place] [address] [facility] [address] [facility] [address] Normal [facility] Magnesiumon 08-07-2017 Magnesium 7.8 mg/dL Critically high 1.6-2.3 [facility] Comment on above: Result Comment: Repe ated Performed By: #### B GLU ####[address] [address] Glucose,Bedsideon 08-06-2017 Glucose mass conc 178 mg/dL High 70-100 [facility] Comment on above: Result Comment: Test performed by glucose meter. Results may be 10%-15% lowerthan serum/plasma values. (CLIA ID [id number]) Performed By: #### B GLU ####[address] [place] [address] Glucose mass conc 104 mg/dL High 70-[address] [facility] Comment on above: Result Comment: Test performed by glucose meter. Results may be 10%-15% lowerthan serum/plasma values. (CLIA ID [id number]) Performed By: #### B GLU ####[address] [place] [address] Glucose mass conc 100 mg/dL Normal 70-[address] [facility] Comment on above: Result Comment: Test performed by glucose meter. Results may be 10%-15% lowerthan serum/plasma values. (CLIA ID [id number]) Performed By: #### B GLU ####[address] [place] [address] Glucose mass conc 99 mg/dL Normal 70-[address] [facility] Comment on above: Result Comment: Test performed by glucose meter. Results may be 10%-15% lowerthan serum/plasma values. (CLIA ID [id number]) Performed By: #### B GLU ####[address] [place] [address] Glucose mass conc 102 mg/dL High 70-[address] [facility] Comment on above: Result Comment: Test performed by glucose meter. Results may be 10%-15% lowerthan serum/plasma values. (CLIA ID [id number]) Performed By: #### B GLU ####[address] [place] [address] Glucose mass conc 101 mg/dL High 70-[address] [facility] Comment on above: Result Comment: Test performed by glucose meter. Results may be 10%-15% lowerthan serum/plasma values. (CLIA ID [id number]) Performed By: #### B GLU ####[address] [place] [address] Glucose mass conc 96 mg/dL Normal 70-[address] [facility] Comment on above: Result Comment: Test performed by glucose meter. Results may be 10%-15% lowerthan serum/plasma values. (CLIA ID [id number]) Performed By: #### H EMOG, CMP3M ####[address] [place] [address] Glucose mass conc 98 mg/dL Normal 70-[address] [facility] Comment on above: Result Comment: Test performed by glucose meter. Results may be 10%-15% lowerthan serum/plasma values. (CLIA ID [id number]) Performed By: #### B GLU ####[address] [place] [address] Glucose mass conc 97 mg/dL Normal 70-[address] [facility] Comment on above: Result Comment: Test performed by glucose meter. Results may be 10%-15% lowerthan serum/plasma values. (CLIA ID [id number]) Performed By: #### B GLU ####[address] [place] [address] Glucose mass conc 94 mg/dL Normal 70-[address] [facility] Comment on above: Result Comment: Test performed by glucose meter. Results may be 10%-15% lowerthan serum/plasma values. (CLIA ID [id number]) Performed By: #### B GLU ####[address] [place] [address] Glucose mass conc 98 mg/dL Normal 70-[address] [facility] Comment on above: Result Comment: Test performed by glucose meter. Results may be 10%-15% lowerthan serum/plasma values. (CLIA ID [id number]) Performed By: #### T SGL ####[address] [place] [address] Glucose mass conc 95 mg/dL Normal 70-[address] [facility] Comment on above: Result Comment: Test performed by glucose meter. Results may be 10%-15% lowerthan serum/plasma values. (CLIA ID [id number]) Performed By: #### T SGL ####[address] [place] [address] Glucose mass conc 97 mg/dL Normal 70-[address] [facility] Comment on above: Result Comment: Test performed by glucose meter. Results may be 10%-15% lowerthan serum/plasma values. (CLIA ID [id number]) Performed By: #### T SGL ####[address] [place] [address] Glucose mass conc 103 mg/dL High 70-100 [facility] Comment on above: Result Comment: Test performed by glucose meter. Results may be 10%-15% lowerthan serum/plasma values. (CLIA ID [id number]) Performed By: #### T SGL ####[address] [place] [address] Glucose mass conc 98 mg/dL Normal 70-[address] [facility] Comment on above: Result Comment: Test performed by glucose meter. Results may be 10%-15% lowerthan serum/plasma values. (CLIA ID [id number]) Performed By: #### T SGL ####[address] [place] [address] Glucose mass conc 97 mg/dL Normal 70-[address] [facility] Comment on above: Result Comment: Test performed by glucose meter. Results may be 10%-15% lowerthan serum/plasma values. (CLIA ID [id number]) Performed By: #### T SGL ####[address] [place] [address] Glucose mass conc 93 mg/dL Normal 70-[address] [facility] Comment on above: Result Comment: Test performed by glucose meter. Results may be 10%-15% lowerthan serum/plasma values. (CLIA ID [id number]) Performed By: #### H KENISHA KEMP3M ####[address] [place] [address] Glucose mass conc 99 mg/dL Normal 70-100 [facility] Comment on above: Result Comment: Test performed by glucose meter. Results may be 10%-15% lowerthan serum/plasma values. (CLIA ID [id number]) Performed By: #### H JUSTO CMP3M ####[address] [place] [address] Hemogramon 08-06-2017 Erythrocyte distribution width Auto Ratio (RBC) 17.5 % High 11.5-14.5 [facility] Comment on above: Performed By: #### T SGL ####[place] [address] [address] Erythrocytes (RBC) 3.90 10*6/uL Normal 3.80-5.20 [facility] Comment on above: Performed By: #### T SGL ####[place] [address] [address] Hematocrit (HCT) 26.6 % Low 35.0-47.0 [facility] Comment on above: Performed By: #### T SGL ####[address] [address] Hemoglobin mass conc (Bld) 8.1 g/dL Low 11.7-16.0 [facility] Comment on above: Performed By: #### T SGL ####[address] [address] MCH 20.9 pg Low 26.0-34.0 [facility] Comment on above: Performed By: #### T SGL ####[address] [address] MCHC mass conc (RBC) 30.6 % Low 32.0-36.0 [facility] Comment on above: Performed By: #### T SGL ####[address] [address] MCV 68.3 fL Low 79.0-98.0 [facility] Comment on above: Performed By: #### T SGL ####[address] [address] Platelet mean volume (PMV) 8.5 fL Normal 7.4-10.4 [facility] Comment on above: Performed By: #### T SGL ####[address] [address] Platelets 332 10*3/uL Normal 140-440 [facility] Comment on above: Performed By: #### T SGL ####[address] [address] WBC (Leukocytes) 19.7 10*3/uL High 3.6-10.7 [facility] Comment on above: Performed By: #### T SGL ####[address] [place] [address] Magnesiumon 08-06-2017 Magnesium 5.5 mg/dL Critically high 1.6-2.3 [facility] Comment on above: Result Comment: repe ated Performed By: #### T SGL ####[address] [place] [address] Magnesium 4.2 mg/dL High 1.6-2.3 [facility] Comment on above: Performed By: #### T SGL ####[address] [place] [address] Platelet Counton 08-06-2017 Platelets 278 10*3/uL Normal 140-440 [facility] Comment on above: Performed By: #### B GLU ####[address] [place] [address] Platelets 311 10*3/uL Normal 140-440 [facility] Comment on above: Performed By: #### T SGL ####[address] [place] [address] Comp Metabolic Panelon 08-05 Alanine aminotransferase (ALT) 17 U/L Normal 13-69 [facility] Comment on above: Performed By: #### H KENISHA KEMP3M ####[address] [place] [address] Alkaline phosphatase (ALP) 157 U/L High 38-126 [facility] Comment on above: Performed By: #### Katerine KEMP CMP3M ####[address] [place] [address] Aspartate aminotransferase (AST) 26 U/L Normal 15-46 [facility] Comment on above: Performed By: #### H KENISHA KEMP3M ####[address] [place] [address] Bilirubin (total) 0.2 mg/dL Normal 0.2-1.3 [facility] Comment on above: Performed By: #### Katerine KEMP CMP3M ####[address] [place] [address] Calcium 9.2 mg/dL Normal 8.4-10.2 [facility] Comment on above: Performed By: #### Katerine KEMP CMP3M ####[address] [place] [address] Glucose mass conc 126 mg/dL High 70-100 [facility] Comment on above: Performed By: #### Katerine KEMP CMP3M ####[address] [place] [address] Protein 6.5 g/dL Normal 6.3-8.2 [facility] Comment on above: Performed By: #### Katerine KEMP CMP3M ####[address] [place] [address] Urea nitrogen 19 mg/dL Normal 7-20 [facility] Comment on above: Performed By: #### Katerine KEMP CMP3M ####[address] [place] [address] Anion gap 9 mmol/L Normal [facility] Comment on above: Performed By: #### Katerine KEMP CMP3M ####[address] [place] [address] CO2 17 mmol/L Low 22-30 [facility] Comment on above: Performed By: #### Katerine KEMP CMP3M ####[address] [place] [address] Creatinine 1.05 mg/dL Normal 0.52-1.25 [facility] Comment on above: Performed By: #### Katerine KEMP CMP3M ####[address] [place] [address] eGFR (black) mL/min/{1.73_m2} Normal >60 [facility] Comment on above: Performed By: #### Katerine KEMP CMP3M ####[address] [place] [address] eGFR (non-black) mL/min/{1.73_m2} Normal >60 [facility] Comment on above: Result Comment: Sour ce- MDRD equation with creatinine calibration to IDMS(NKDEP)eGFR not recommended for drug dose adjustment Performed By: #### H JUSTO CMP3M ####[address] [place] [address] Albumin 3.1 g/dL Low 3.5-5.0 [facility] Comment on above: Performed By: #### H JUSTO CMP3M ####[address] [place] [address] Potassium molar conc 3.8 mmol/L Normal 3.5-5.1 [facility] Comment on above: Performed By: #### Katerine KEMP CMP3M ####[address] [place] [address] Sodium 135 mmol/L Low 137-145 [facility] Comment on above: Performed By: #### Katerine KEMP CMP3M ####[address] [place] [address] Chloride 108 mmol/L High 98-107 [facility] Comment on above: Performed By: #### Katerine KEMP CMP3M ####[address] [place] [address] Glucose,Bedsideon 08-05-2017 Glucose mass conc 96 mg/dL Normal 70-100 [facility] Comment on above: Result Comment: Test performed by glucose meter. Results may be 10%-15% lowerthan serum/plasma values. (CLIA ID [id number]) Performed By: #### H JUSTO CMP3M ####[address] [place] [address] Glucose mass conc 102 mg/dL High 70-100 [facility] Comment on above: Result Comment: Test performed by glucose meter. Results may be 10%-15% lowerthan serum/plasma values. (CLIA ID [id number]) Performed By: #### Katerine KEMP CMP3M ####[address] [place] [address] Glucose mass conc 138 mg/dL High 70-100 [facility] Comment on above: Result Comment: Test performed by glucose meter. Results may be 10%-15% lowerthan serum/plasma values. (CLIA ID [id number]) Performed By: #### H DANIELG, CMP3M ####[address] [place] [address] Glucose mass conc 145 mg/dL High 70-100 [facility] Comment on above: Result Comment: Test performed by glucose meter. Results may be 10%-15% lowerthan serum/plasma values. (CLIA ID [id number]) Performed By: #### Katerine KEMP CMP3M ####[address] [place] [address] Glucose mass conc 118 mg/dL High 70-100 [facility] Comment on above: Result Comment: Test performed by glucose meter. Results may be 10%-15% lowerthan serum/plasma values. (CLIA ID [id number]) Performed By: #### Katerine KEMP CMP3M ####[address] [place] [address] Hemogramon 08-05-2017 Erythrocyte distribution width Auto Ratio (RBC) 17.3 % High 11.5-14.5 [facility] Comment on above: Performed By: #### Katerine KEMP CMP3M ####[address] [place] [address] Erythrocytes (RBC) 3.58 10*6/uL Low 3.80-5.20 [facility] Comment on above: Performed By: #### Katerine KEMP CMP3M ####[address] [place] [address] Hematocrit (HCT) 24.3 % Low 35.0-47.0 [facility] Comment on above: Performed By: #### Katerine KEMP CMP3M ####[address] [place] [address] Hemoglobin mass conc (Bld) 7.5 g/dL Low 11.7-16.0 [facility] Comment on above: Performed By: #### Katerine KEMP CMP3M ####[address] [place] [address] MCH 21.0 pg Low 26.0-34.0 [facility] Comment on above: Performed By: #### Katerine KEMP CMP3M ####[address] [place] [address] MCHC mass conc (RBC) 30.9 % Low 32.0-36.0 [facility] Comment on above: Performed By: #### H JUSTO CMP3M ####[address] [place] [address] MCV 67.7 fL Low 79.0-98.0 [facility] Comment on above: Result Comment: CHEC KED PREVIOUSREPEATED Performed By: #### Katerine KEMP CMP3M ####[address] [place] [address] Platelet mean volume (PMV) 8.5 fL Normal 7.4-10.4 [facility] Comment on above: Performed By: #### Katerine KEMP CMP3M ####[address] [place] [address] Platelets 327 10*3/uL Normal 140-440 [facility] Comment on above: Performed By: #### Katerine KEMP CMP3M ####[address] [place] [address] WBC (Leukocytes) 17.8 10*3/uL High 3.6-10.7 [facility] Comment on above: Performed By: #### Katerine KEMP CMP3M ####[address] [place] [address] ZENAIDA HSUviet 08-05-2017 ZENAIDA HSU PATIENT: ERYN MELENDREZ LOC: 2NI,126,201BILL# : [id number] : 1995 SEX: F AGE: 21ORDERED BY: SANAZ Jules ORDERED : 08/05/2017 14:36 COLLECTED: 08/05/2017 15:17ORDER : [id number] RECEIVED : 08/05/2017 15:29 TEST NAME RESULT UNITS RANGES ABN FL STABO Group B FRh, Gel POS FAntibody Screen Gel NEG F ------ Normal [facility] Comment on above: Performed By: #### H JUSTO CMP3M ####[address] [place] [address] Ferritinon 08-04-2017 Ferritin 10 ng/mL Normal 8-252 [facility] Comment on above: Performed By: #### Katerine KEMP CMP3M ####[address] [place] [address] Glucose,Bedsideon 08-04-2017 Glucose mass conc 232 mg/dL High 70-100 [facility] Comment on above: Result Comment: Test performed by glucose meter. Results may be 10%-15% lowerthan serum/plasma values. (CLIA ID [id number]) Performed By: #### Katerine KEMP CMP3M ####[address] [place] [address] Glucose mass conc 210 mg/dL High 70-[address] [facility] Comment on above: Result Comment: Test performed by glucose meter. Results may be 10%-15% lowerthan serum/plasma values. (CLIA ID [id number]) Performed By: #### Katerine KEMP CMP3M ####[address] [place] [address] Glucose mass conc 202 mg/dL High 70-[address] [facility] Comment on above: Result Comment: Test performed by glucose meter. Results may be 10%-15% lowerthan serum/plasma values. (CLIA ID [id number]) Performed By: #### Katerine KEMP CMP3M ####[address] [place] [address] Glucose mass conc 110 mg/dL High 70-100 [facility] Comment on above: Result Comment: Test performed by glucose meter. Results may be 10%-15% lowerthan serum/plasma values. (CLIA ID [id number]) Performed By: #### Katerine KEMP CMP3M ####[address] [place] [address] Magnesiumon 08-04-2017 Magnesium 6.0 mg/dL Critically high 1.6-2.3 [facility] Comment on above: Result Comment: Repe ated Performed By: #### Katerine KEMP CMP3M ####[address] [place] [address] Comp Metabolic Panelon 08-03 Calcium 9.1 mg/dL Normal 8.4-10.2 [facility] Comment on above: Performed By: #### Katerine KEMP CMP3 ####[address] [place] [address] Alanine aminotransferase (ALT) 17 U/L Normal 13-69 [facility] Comment on above: Performed By: #### Katerine KEMP CMP3 ####[address] [place] [address] Alkaline phosphatase (ALP) 144 U/L High 38-126 [facility] Comment on above: Performed By: #### Katerine KEMP CMP3 ####[address] [place] [address] Anion gap 8 mmol/L Normal [facility] Comment on above: Performed By: #### Katerine KEMP CMP3 ####[address] [place] [address] Aspartate aminotransferase (AST) 16 U/L Normal 15-46 [facility] Comment on above: Performed By: #### Katerine KEMP CMP3 ####[address] [place] [address] Bilirubin (total) 0.2 mg/dL Normal 0.2-1.3 [facility] Comment on above: Performed By: #### Katerine KEMP CMP3 ####[address] [place] [address] CO2 19 mmol/L Low 22-30 [facility] Comment on above: Performed By: #### Katerine KEMP CMP3 ####[address] [place] [address] Glucose mass conc 124 mg/dL High 70-100 [facility] Comment on above: Performed By: #### H JUSTO CMP3 ####[address] [place] [address] Protein 6.2 g/dL Low 6.3-8.2 [facility] Comment on above: Performed By: #### Katerine KEMP CMP3 ####[address] [place] [address] Urea nitrogen 13 mg/dL Normal 7-20 [facility] Comment on above: Performed By: #### Katerine KEMP CMP3 ####[address] [place] [address] Creatinine 0.68 mg/dL Normal 0.52-1.25 [facility] Comment on above: Performed By: #### Katerine KEMP CMP3 ####[address] [place] [address] eGFR (black) mL/min/{1.73_m2} Normal >60 [facility] Comment on above: Performed By: #### Katerine KEMP CMP3 ####[address] [place] [address] eGFR (non-black) mL/min/{1.73_m2} Normal >60 [facility] Comment on above: Result Comment: Sour ce- MDRD equation with creatinine calibration to IDMS(NKDEP)eGFR not recommended for drug dose adjustment Performed By: #### H KENISHA KEMP3 ####[address] [place] [address] Albumin 2.9 g/dL Low 3.5-5.0 [facility] Comment on above: Performed By: #### Katerine KEMP CMP3 ####[address] [place] [address] Chloride 108 mmol/L High 98-107 [facility] Comment on above: Performed By: #### Katerine KEMP CMP3 ####[address] [place] [address] Potassium molar conc 3.9 mmol/L Normal 3.5-5.1 [facility] Comment on above: Performed By: #### H KENISHA KEMP3 ####[address] [place] [address] Sodium 135 mmol/L Low 137-145 [facility] Comment on above: Performed By: #### Katerine KEMP CMP3 ####[address] [place] [address] Glucose,Bedsideon 08-03-2017 Glucose mass conc 181 mg/dL High 70-100 [facility] Comment on above: Result Comment: Test performed by glucose meter. Results may be 10%-15% lowerthan serum/plasma values. (CLIA ID [id number]) Performed By: #### Katerine KEMP CMP3M ####[address] [place] [address] Glucose mass conc 170 mg/dL High 70-100 [facility] Comment on above: Result Comment: Test performed by glucose meter. Results may be 10%-15% lowerthan serum/plasma values. (CLIA ID [id number]) Performed By: #### H KENISHA KEMP3M ####[address] [place] [address] Glucose mass conc 136 mg/dL High 70-100 [facility] Comment on above: Result Comment: Test performed by glucose meter. Results may be 10%-15% lowerthan serum/plasma values. (CLIA ID [id number]) Performed By: #### B GLU ####[address] [place] [place] [address] Glucose mass conc 101 mg/dL High 70-100 [facility] Comment on above: Result Comment: Test performed by glucose meter. Results may be 10%-15% lowerthan serum/plasma values. (CLIA ID [id number]) Performed By: #### B GLU ####[address] [place] [address] Hemogramon 08-03-2017 Erythrocyte distribution width Auto Ratio (RBC) 16.7 % High 11.5-14.5 [facility] Comment on above: Performed By: #### H KENISHA KEMP3 ####[address] [place] [address] Erythrocytes (RBC) 3.48 10*6/uL Low 3.80-5.20 [facility] Comment on above: Performed By: #### H KENISHA KEMP3 ####[address] [place] [address] Hematocrit (HCT) 23.3 % Low 35.0-47.0 [facility] Comment on above: Performed By: #### H KENISHA KEMP3 ####[place] [address] Hemoglobin mass conc (Bld) 7.3 g/dL Low 11.7-16.0 [facility] Comment on above: Performed By: #### Katerine KEMP CMP3 ####[address] [place] [address] MCH 21.1 pg Low 26.0-34.0 [facility] Comment on above: Performed By: #### Katerine KEMP CMP3 ####[address] [address] MCHC mass conc (RBC) 31.6 % Low 32.0-36.0 [facility] Comment on above: Performed By: #### H KENISHA KEMP3 ####[address] [place] [address] MCV 66.9 fL Low 79.0-98.0 [facility] Comment on above: Performed By: #### H KENISHA KEMP3 ####[address] [address] Platelet mean volume (PMV) 8.2 fL Normal 7.4-10.4 [facility] Comment on above: Performed By: #### H JUSTO CMP3 ####[address] [place] [address] Platelets 223 10*3/uL Normal 140-440 [facility] Comment on above: Performed By: #### H KENISHA KEMP3 ####[address] [place] [address] WBC (Leukocytes) 11.1 10*3/uL High 3.6-10.7 [facility] Comment on above: Performed By: #### H KENISHA KEMP3 ####[address] [place] [address] CULTURE GRP. B. STREP.on CULTURE GRP. B. STREP. Specimen Source Comment:Vaginal [facility] Patient name: PARVIN DE OLIVEIRA M.R.N.: [id number] : 1995 Age: 21 Sex: F Ord. Physician: RICH GUZMAN Location: [address] [place] [address] Copy to: RICH GUZMAN Adm. Date: 08/02/17 MICROBIOLOGYORDER#: [id number] COLLECTED: 08/02/17 18:40SOURCE: Vagina RECEIVED: 08/02/17 20:46 OE C O M M E N T S Spec imen Source Comment:VaginalCULTURE GRP. B. STREP. FINAL 08/05/17 11:No beta-streptococcus Group B isolated.CDC guidelines for prevention of Gp B Strepdisease recommend collection of both vaginal and rectalspecimens for optimal recovery of GBS. Cervicalspecimens are not recommended. Normal [facility] Comment on above: Performed By: #### H KENISHA KEMP3M ####[address] [place] [address] Comp Panel with Mg Reflexon 08-02-2017 Alanine aminotransferase (ALT) 20 U/L Normal 13-69 [facility] Comment on above: Performed By: #### H JUSTO CMP3M ####[address] [place] [address] Alkaline phosphatase (ALP) 153 U/L High 38-126 [facility] Comment on above: Performed By: #### H DANIELG, CMP3M ####[address] [place] [address] Calcium 9.2 mg/dL Normal 8.4-10.2 [facility] Comment on above: Performed By: #### Katerine KEMP CMP3M ####[address] [place] [address] Glucose mass conc 98 mg/dL Normal 70-100 [facility] Comment on above: Performed By: #### Katerine KEMP CMP3M ####[address] [place] [address] Anion gap 11 mmol/L Normal [facility] Comment on above: Performed By: #### Katerine KEMP CMP3M ####[address] [place] [address] Aspartate aminotransferase (AST) 16 U/L Normal 15-46 [facility] Comment on above: Performed By: #### Katerine KEMP CMP3M ####[address] [place] [address] Bilirubin (total) 0.2 mg/dL Normal 0.2-1.3 [facility] Comment on above: Performed By: #### Katerine KEMP CMP3M ####[address] [place] [address] CO2 19 mmol/L Low 22-30 [facility] Comment on above: Performed By: #### Katerine KEMP CMP3M ####[address] [place] [address] Creatinine 0.69 mg/dL Normal 0.52-1.25 [facility] Comment on above: Performed By: #### Katerine KEMP CMP3M ####[address] [place] [address] eGFR (black) mL/min/{1.73_m2} Normal >60 [facility] Comment on above: Performed By: #### Katerine KEMP CMP3M ####[address] [place] [address] eGFR (non-black) mL/min/{1.73_m2} Normal >60 [facility] Comment on above: Result Comment: Sour ce- MDRD equation with creatinine calibration to IDMS(NKDEP)eGFR not recommended for drug dose adjustment Performed By: #### Katerine KEMP CMP3M ####[address] [place] [address] Protein 6.8 g/dL Normal 6.3-8.2 [facility] Comment on above: Performed By: #### Katerine KEMP CMP3M ####[address] [place] [address] Urea nitrogen 12 mg/dL Normal 7-20 [facility] Comment on above: Performed By: #### H KENISHA KEMP3M ####[address] [place] [address] Potassium molar conc 3.9 mmol/L Normal 3.5-5.1 [facility] Comment on above: Performed By: #### H JUSTO CMP3M ####[address] [place] [address] Sodium 136 mmol/L Low 137-145 [facility] Comment on above: Performed By: #### Katerine KEMP CMP3M ####[address] [place] [address] Albumin 3.3 g/dL Low 3.5-5.0 [facility] Comment on above: Performed By: #### Katerine KEMP CMP3M ####[address] [place] [address] Chloride 106 mmol/L Normal 98-107 [facility] Comment on above: Performed By: #### Katerine KEMP CMP3M ####[address] [place] [address] Glucose,Bedsideon 08-02-2017 Glucose mass conc 128 mg/dL High 70-100 [facility] Comment on above: Result Comment: Test performed by glucose meter. Results may be 10%-15% lowerthan serum/plasma values. (CLIA ID [id number]) Performed By: #### B GLU ####[address] [place] [address] Glucose mass conc 120 mg/dL High 70-100 [facility] Comment on above: Result Comment: Test performed by glucose meter. Results may be 10%-15% lowerthan serum/plasma values. (CLIA ID [id number]) Performed By: #### B GLU ####[address] [place] [address] Glucose mass conc 104 mg/dL High 70-100 [facility] Comment on above: Result Comment: Test performed by glucose meter. Results may be 10%-15% lowerthan serum/plasma values. (CLIA ID [id number]) Performed By: #### B GLU ####[address] [place] [address] Hemogramon 08-02-2017 Erythrocyte distribution width Auto Ratio (RBC) 17.3 % High 11.5-14.5 [facility] Comment on above: Performed By: #### H JUSTO CMP3M ####[address] [place] [address] Erythrocytes (RBC) 3.82 10*6/uL Normal 3.80-5.20 [facility] Comment on above: Performed By: #### H JUSTO CMP3M ####[place] [address] Hematocrit (HCT) 25.6 % Low 35.0-47.0 [facility] Comment on above: Performed By: #### H JUSTO CMP3M ####[address] [place] [address] Hemoglobin mass conc (Bld) 8.0 g/dL Low 11.7-16.0 [facility] Comment on above: Performed By: #### H JUSTO CMP3M ####[address] [place] [address] MCH 20.9 pg Low 26.0-34.0 [facility] Comment on above: Performed By: #### H JUSTO CMP3M ####[address] [address] MCHC mass conc (RBC) 31.2 % Low 32.0-36.0 [facility] Comment on above: Performed By: #### H JUSTO CMP3M ####[address] [place] [address] MCV 66.9 fL Low 79.0-98.0 [facility] Comment on above: Performed By: #### H JUSTO CMP3M ####[address] [place] [address] Platelet mean volume (PMV) 8.4 fL Normal 7.4-10.4 [facility] Comment on above: Performed By: #### H JUSTO CMP3M ####[address] [place] [address] Platelets 256 10*3/uL Normal 140-440 [facility] Comment on above: Performed By: #### H JUSTO CMP3M ####[address] [place] [address] WBC (Leukocytes) 11.3 10*3/uL High 3.6-10.7 [facility] Comment on above: Performed By: #### H JUSTO CMP3M ####[address] [place] [address] TS GELon 08-02-2017 TS GEL PATIENT: ERYN MELENDREZ LOC: [facility],123,[id number]# : [id number] : 1995 SEX: F AGE: 21ORDERED BY: NAZIA Charles ORDERED : 08/02/2017 15:32 COLLECTED: 08/02/2017 15:34ORDER : [id number] RECEIVED : 08/02/2017 15:52 TEST NAME RESULT UNITS RANGES ABN FL STABO Group B FRh, Gel POS FAntibody Screen Gel NEG F ------ Normal [facility] Comment on above: Performed By: #### T SGL ####[address] [address] Vital Signs Date Time Vital Sign Value Performing Clinician Facility 03-15-2025 15:45-0400 Respiratory rate 16 /min No Primary Care Physician [facility] 03-15-2025 14:01-0400 Diastolic blood pressure 82 mm[Hg] No Primary Care Physician [facility] 03-15-2025 14:01-0400 Heart rate 67 /min No Primary Care Physician [facility] 03-15-2025 14:01-0400 SaO2% (BldA) [Mass fraction] 98 % No Primary Care Physician [facility] 03-15-2025 14:01-0400 Systolic blood pressure 151 mm[Hg] No Primary Care Physician [facility] 03-15-2025 12:08-0400 Body temperature 97 [degF] No Primary Care Physician [facility] 03-12-2025 11:58-0400 Body height 157.48 cm No Primary Care Physician [facility] 03-12-2025 11:58-0400 Body mass index (BMI) [Ratio] 48.1 kg/m2 No Primary Care Physician [facility] 03-12-2025 11:58-0400 Body weight 119.29 kg No Primary Care Physician [facility] 03-12-2025 10:43-0400 Body height 157.48 cm No Primary Care Physician [facility] 03-12-2025 10:43-0400 Body mass index (BMI) [Ratio] 47.9 kg/m2 No Primary Care Physician [facility] 03-12-2025 10:43-0400 Body weight 119.06 kg No Primary Care Physician [facility] 03-12-2025 10:43-0400 Diastolic blood pressure 90 mm[Hg] No Primary Care Physician [facility] 03-12-2025 10:43-0400 Systolic blood pressure 147 mm[Hg] No Primary Care Physician [facility] 03-03-2025 14:17-0400 Diastolic blood pressure 79 mm[Hg] No Primary Care Physician [facility] 03-03-2025 14:17-0400 Heart rate 103 /min No Primary Care Physician [facility] 03-03-2025 14:17-0400 Systolic blood pressure 124 mm[Hg] No Primary Care Physician [facility] 03-03-2025 14:10-0400 Body temperature 98.5 [degF] No Primary Care Physician [facility] 03-03-2025 14:10-0400 Respiratory rate 16 /min No Primary Care Physician [facility] 03-03-2025 14:07-0400 Body height 157.48 cm No Primary Care Physician [facility] 03-03-2025 14:07-0400 Body mass index (BMI) [Ratio] 46.3 kg/m2 No Primary Care Physician [facility] 03-03-2025 14:07-0400 Body weight 114.8 kg No Primary Care Physician [facility] 02-26-2025 09:06-0400 Body height 157.48 cm No Primary Care Physician [facility] 02-26-2025 09:06-0400 Body mass index (BMI) [Ratio] 45.7 kg/m2 No Primary Care Physician [facility] 02-26-2025 09:06-0400 Body weight 113.45 kg No Primary Care Physician [facility] 02-26-2025 09:06-0400 Diastolic blood pressure 83 mm[Hg] No Primary Care Physician [facility] 02-26-2025 09:06-0400 Systolic blood pressure 131 mm[Hg] No Primary Care Physician [facility] 02-19-2025 10:04-0400 Body height 157.48 cm No Primary Care Physician [facility] 02-19-2025 10:04-0400 Body mass index (BMI) [Ratio] 44.3 kg/m2 No Primary Care Physician [facility] 02-19-2025 10:04-0400 Body weight 109.99 kg No Primary Care Physician [facility] 02-19-2025 10:04-0400 Diastolic blood pressure 80 mm[Hg] No Primary Care Physician [facility] 02-19-2025 10:04-0400 Systolic blood pressure 122 mm[Hg] No Primary Care Physician [facility] 02-10-2025 10:46-0400 Body height 157.48 cm No Primary Care Physician [facility] 02-10-2025 10:46-0400 Body mass index (BMI) [Ratio] 43.3 kg/m2 No Primary Care Physician [facility] 02-10-2025 10:46-0400 Body weight 107.5 kg No Primary Care Physician [facility] 02-10-2025 10:46-0400 Diastolic blood pressure 72 mm[Hg] No Primary Care Physician [facility] 02-10-2025 10:46-0400 Systolic blood pressure 106 mm[Hg] No Primary Care Physician [facility] 02-02-2025 11:22-0400 Body height 157.48 cm No Primary Care Physician [facility] 02-02-2025 11:22-0400 Body mass index (BMI) [Ratio] 43.7 kg/m2 No Primary Care Physician [facility] 02-02-2025 11:22-0400 Body weight 108.4 kg No Primary Care Physician [facility] 02-02-2025 11:22-0400 Diastolic blood pressure 82 mm[Hg] No Primary Care Physician [facility] 02-02-2025 11:22-0400 Systolic blood pressure 133 mm[Hg] No Primary Care Physician [facility] 01-21-2025 11:44-0400 Diastolic blood pressure 73 mm[Hg] No Primary Care Physician [facility] 01-21-2025 11:44-0400 Heart rate 88 /min No Primary Care Physician [facility] 01-21-2025 11:44-0400 Systolic blood pressure 121 mm[Hg] No Primary Care Physician [facility] 01-21-2025 09:00-0400 Body height 157.48 cm No Primary Care Physician [facility] 01-21-2025 09:00-0400 Body mass index (BMI) [Ratio] 43.5 kg/m2 No Primary Care Physician [facility] 01-21-2025 09:00-0400 Body temperature 97 [degF] No Primary Care Physician [facility] 01-21-2025 09:00-0400 Body weight 107.95 kg No Primary Care Physician [facility] 01-21-2025 09:00-0400 Respiratory rate 16 /min No Primary Care Physician [facility] 01-21-2025 09:00-0400 SaO2% (BldA) [Mass fraction] 97 % No Primary Care Physician [facility] 01-19-2025 11:41-0400 Body height 157.48 cm No Primary Care Physician [facility] 01-19-2025 11:41-0400 Body mass index (BMI) [Ratio] 43.6 kg/m2 No Primary Care Physician [facility] 01-19-2025 11:41-0400 Body weight 108.12 kg No Primary Care Physician [facility] 01-19-2025 11:41-0400 Diastolic blood pressure 73 mm[Hg] No Primary Care Physician [facility] 01-19-2025 11:41-0400 Systolic blood pressure 114 mm[Hg] No Primary Care Physician [facility] 01-11-2025 15:35-0400 Heart rate 95 /min No Primary Care Physician [facility] 01-11-2025 15:35-0400 SaO2% (BldA) [Mass fraction] 94 % No Primary Care Physician [facility] 01-11-2025 14:53-0400 Body height 157.48 cm No Primary Care Physician [facility] 01-11-2025 14:53-0400 Body mass index (BMI) [Ratio] 43.1 kg/m2 No Primary Care Physician [facility] 01-11-2025 14:53-0400 Body weight 107.04 kg No Primary Care Physician [facility] 01-11-2025 14:39-0400 Body temperature 98.4 [degF] No Primary Care Physician [facility] 01-11-2025 14:20-0400 Diastolic blood pressure 70 mm[Hg] No Primary Care Physician [facility] 01-11-2025 14:20-0400 Systolic blood pressure 119 mm[Hg] No Primary Care Physician [facility] 01-06-2025 13:02-0400 Body height 157.48 cm No Primary Care Physician [facility] 01-06-2025 13:02-0400 Body mass index (BMI) [Ratio] 43.8 kg/m2 No Primary Care Physician [facility] 01-06-2025 13:02-0400 Body weight 108.63 kg No Primary Care Physician [facility] 01-06-2025 13:02-0400 Diastolic blood pressure 72 mm[Hg] No Primary Care Physician [facility] 01-06-2025 13:02-0400 Systolic blood pressure 128 mm[Hg] No Primary Care Physician [facility] 12-09-2024 11:08-0400 Body height 157.48 cm No Primary Care Physician [facility] 12-09-2024 11:06-0400 Body mass index (BMI) [Ratio] 42.9 kg/m2 No Primary Care Physician [facility] 12-09-2024 11:06-0400 Body weight 106.36 kg No Primary Care Physician [facility] 12-09-2024 11:06-0400 Diastolic blood pressure 79 mm[Hg] No Primary Care Physician [facility] 12-09-2024 11:06-0400 Systolic blood pressure 119 mm[Hg] No Primary Care Physician [facility] 11-11-2024 10:58-0400 Body height 157.48 cm No Primary Care Physician [facility] 11-11-2024 10:55-0400 Body mass index (BMI) [Ratio] 42.3 kg/m2 No Primary Care Physician [facility] 11-11-2024 10:55-0400 Body weight 104.89 kg No Primary Care Physician [facility] 11-11-2024 10:55-0400 Diastolic blood pressure 77 mm[Hg] No Primary Care Physician [facility] 11-11-2024 10:55-0400 Systolic blood pressure 113 mm[Hg] No Primary Care Physician [facility] 10-16-2024 11:14-0400 Body mass index (BMI) [Ratio] 41.8 kg/m2 No Primary Care Physician [facility] 10-16-2024 11:14-0400 Body weight 103.87 kg No Primary Care Physician [facility] 10-16-2024 11:14-0400 Diastolic blood pressure 78 mm[Hg] No Primary Care Physician [facility] 10-16-2024 11:14-0400 Heart rate 94 /min No Primary Care Physician [facility] 10-16-2024 11:14-0400 Systolic blood pressure 119 mm[Hg] No Primary Care Physician [facility] 10-07-2024 13:34-0400 Body temperature 97.3 [degF] No Primary Care Physician [facility] 10-07-2024 13:34-0400 Diastolic blood pressure 70 mm[Hg] No Primary Care Physician [facility] 10-07-2024 13:34-0400 Heart rate 84 /min No Primary Care Physician [facility] 10-07-2024 13:34-0400 Respiratory rate 16 /min No Primary Care Physician [facility] 10-07-2024 13:34-0400 SaO2% (BldA) [Mass fraction] 98 % No Primary Care Physician [facility] 10-07-2024 13:34-0400 Systolic blood pressure 125 mm[Hg] No Primary Care Physician [facility] 10-07-2024 10:42-0400 Body height 157.48 cm No Primary Care Physician [facility] 10-01-2024 15:58-0400 Diastolic blood pressure 66 mm[Hg] No Primary Care Physician [facility] 10-01-2024 15:58-0400 Heart rate 83 /min No Primary Care Physician [facility] 10-01-2024 15:58-0400 Respiratory rate 16 /min No Primary Care Physician [facility] 10-01-2024 15:58-0400 Systolic blood pressure 127 mm[Hg] No Primary Care Physician [facility] 10-01-2024 13:39-0400 Body height 157.48 cm No Primary Care Physician [facility] 10-01-2024 13:39-0400 Body mass index (BMI) [Ratio] 41.7 kg/m2 No Primary Care Physician [facility] 10-01-2024 13:39-0400 Body temperature 97.2 [degF] No Primary Care Physician [facility] 10-01-2024 13:39-0400 Body weight 103.41 kg No Primary Care Physician [facility] 10-01-2024 13:39-0400 SaO2% (BldA) [Mass fraction] 100 % No Primary Care Physician [facility] 09-17-2024 11:38-0400 Body height 157.48 cm No Primary Care Physician [facility] 09-17-2024 11:38-0400 Body mass index (BMI) [Ratio] 41.7 kg/m2 No Primary Care Physician [facility] 09-17-2024 11:38-0400 Body weight 103.53 kg No Primary Care Physician [facility] 09-17-2024 11:38-0400 Diastolic blood pressure 81 mm[Hg] No Primary Care Physician [facility] 09-17-2024 11:38-0400 Systolic blood pressure 127 mm[Hg] No Primary Care Physician [facility] 09-15-2024 08:32-0400 Body mass index (BMI) [Ratio] 41.66 kg/m2 Krislyn Aberegg PA Work Phone: [facility] 09-15-2024 08:32-0400 Body temperature 98.29 [degF] Krislyn Aberegg PA Work Phone: [facility] 09-15-2024 08:32-0400 Body weight 104 kg Krislyn Aberegg PA Work Phone: [facility] 09-15-2024 08:32-0400 Diastolic blood pressure 85 mm[Hg] Krislyn Aberegg PA Work Phone: [facility] 09-15-2024 08:32-0400 Heart rate 72 /min Krislyn Aberegg PA Work Phone: [facility] 09-15-2024 08:32-0400 Respiratory rate 18 /min Krislyn Aberegg PA Work Phone: [facility] 09-15-2024 08:32-0400 SaO2% (BldA) [Mass fraction] 100 % Krislyn Aberegg PA Work Phone: [facility] 09-15-2024 08:32-0400 Systolic blood pressure 129 mm[Hg] Krislyn Aberegg PA Work Phone: [facility] 08-17-2024 14:11-0500 Body height 157.48 cm No Primary Care Physician [facility] 08-17-2024 14:10-0500 Body mass index (BMI) [Ratio] 41.3 kg/m2 No Primary Care Physician [facility] 08-17-2024 14:10-0500 Body weight 102.56 kg No Primary Care Physician [facility] 08-17-2024 14:10-0500 Diastolic blood pressure 73 mm[Hg] No Primary Care Physician [facility] 08-17-2024 14:10-0500 Systolic blood pressure 116 mm[Hg] No Primary Care Physician [facility] 07-30-2024 18:00-0500 Diastolic blood pressure 79 mm[Hg] No Primary Care Physician [facility] 07-30-2024 18:00-0500 Heart rate 78 /min No Primary Care Physician [facility] 07-30-2024 18:00-0500 Respiratory rate 16 /min No Primary Care Physician [facility] 07-30-2024 18:00-0500 SaO2% (BldA) [Mass fraction] 98 % No Primary Care Physician [facility] 07-30-2024 18:00-0500 Systolic blood pressure 128 mm[Hg] No Primary Care Physician [facility] 07-30-2024 14:32-0500 Body mass index (BMI) [Ratio] 41.5 kg/m2 No Primary Care Physician [facility] 07-30-2024 14:32-0500 Body temperature 97.5 [degF] No Primary Care Physician [facility] 07-30-2024 14:32-0500 Body weight 102.96 kg No Primary Care Physician [facility] 07-27-2024 13:32-0500 Body mass index (BMI) [Ratio] 41.1 kg/m2 Perry Delcid APRN.DASHBOARD DEVELOPER Work Phone: [facility] 07-27-2024 13:32-0500 Body temperature 98.49 [degF] Perry Delcid APRN.DASHBOARD DEVELOPER Work Phone: [facility] 07-27-2024 13:32-0500 Body weight 102.6 kg Perry Delcid APRN.DASHBOARD DEVELOPER Work Phone: [facility] 07-27-2024 13:32-0500 Diastolic blood pressure 68 mm[Hg] Perry Delcid APRN.DASHBOARD DEVELOPER Work Phone: [facility] 07-27-2024 13:32-0500 Heart rate 84 /min Perry Delcid APRN.DASHBOARD DEVELOPER Work Phone: [facility] 07-27-2024 13:32-0500 Respiratory rate 16 /min Perry Delcid APRN.DASHBOARD DEVELOPER Work Phone: [facility] 07-27-2024 13:32-0500 SaO2% (BldA) [Mass fraction] 99 % Perry Delcid APRN.DASHBOARD DEVELOPER Work Phone: [facility] 07-27-2024 13:32-0500 Systolic blood pressure 110 mm[Hg] Perry Delcid APRN.DASHBOARD DEVELOPER Work Phone: [facility] 07-02-2024 09:23-0500 Body mass index (BMI) [Ratio] 41.26 kg/m2 Krislyn Aberegg PA Work Phone: [facility] 07-02-2024 09:23-0500 Body temperature 98.1 [degF] Krislyn Aberegg PA Work Phone: [facility] 07-02-2024 09:23-0500 Body weight 103 kg Krislyn Aberegg PA Work Phone: [facility] 07-02-2024 09:23-0500 Diastolic blood pressure 77 mm[Hg] Krislyn Aberegg PA Work Phone: [facility] 07-02-2024 09:23-0500 Heart rate 70 /min Krislyn Aberegg PA Work Phone: [facility] 07-02-2024 09:23-0500 Respiratory rate 18 /min Krislyn Aberegg PA Work Phone: [facility] 07-02-2024 09:23-0500 SaO2% (BldA) [Mass fraction] 100 % Krislyn Aberegg PA Work Phone: [facility] 07-02-2024 09:23-0500 Systolic blood pressure 114 mm[Hg] Krislyn Aberegg PA Work Phone: [facility] 11-12-2023 09:32-0400 Blood Pressure [facility] 11-12-2023 09:32-0400 Blood Pressure Method MICKEY FROMLAUROT D O [facility] 11-12-2023 09:32-0400 Body temperature 98.24 [degF] MICKEY FROMMELT DO [facility] 11-12-2023 09:32-0400 Diastolic Blood Pressure Non-Invasive 79 mm[Hg] MICKEY FROMMELT DO [facility] 11-12-2023 09:32-0400 Heart rate 91 /min MICKEY FROMLAUROT DO [facility] 11-12-2023 09:32-0400 Respiratory rate 18 /min MICKEY WHYTET DO [facility] 11-12-2023 09:32-0400 Systolic Blood Pressure Non-Invasive 133 mm[Hg] MICKEY FROMLAUROT DO [facility] 2023 12:15-0400 Body temperature 98.3 [degF] TATTOO IDENTIFIER-C Pilo Armas TATTOO IDENTIFIER Work Phone: [facility] 2023 12:15-0400 Diastolic blood pressure 86 mm[Hg] TATTOO IDENTIFIER-C Pilo Armas TATTOO IDENTIFIER Work Phone: [facility] 2023 12:15-0400 Heart rate 102 /min TATTOO IDENTIFIER-C Pilo Armas TATTOO IDENTIFIER Work Phone: [facility] 2023 12:15-0400 Respiratory rate 12 /min TATTOO IDENTIFIER-C Pilo Armas TATTOO IDENTIFIER Work Phone: [facility] 2023 12:15-0400 SaO2% (BldA) [Mass fraction] 99 % TATTOO IDENTIFIER-C Pilo Armas TATTOO IDENTIFIER Work Phone: [facility] 2023 12:15-0400 Systolic blood pressure 120 mm[Hg] TATTOO IDENTIFIER-C Pilo Rossipkins TATTOO IDENTIFIER Work Phone: [facility] 10-18-2023 11:05-0400 Body height 157.48 cm TATTOO IDENTIFIER-C Pilo Rossipkins TATTOO IDENTIFIER Work Phone: [facility] 10-18-2023 11:05-0400 Body mass index (BMI) [Ratio] 40.1 kg/m2 TATTOO IDENTIFIER-C Pilo Bronx TATTOO IDENTIFIER Work Phone: [facility] 10-18-2023 11:05-0400 Body temperature 97.7 [degF] TATTOO IDENTIFIER-C Pilo Armas TATTOO IDENTIFIER Work Phone: [facility] 10-18-2023 11:05-0400 Body weight 99.56 kg TATTOO IDENTIFIER-C Pilo Armas TATTOO IDENTIFIER Work Phone: [facility] 10-18-2023 11:05-0400 Diastolic blood pressure 70 mm[Hg] TATTOO IDENTIFIER-C Pilo Rossipkins TATTOO IDENTIFIER Work Phone: [facility] 10-18-2023 11:05-0400 Heart rate 80 /min TATTOO IDENTIFIER-C Pilo Rossipkins TATTOO IDENTIFIER Work Phone: [facility] 10-18-2023 11:05-0400 Respiratory rate 16 /min TATTOO IDENTIFIER-C Pilo Bronx TATTOO IDENTIFIER Work Phone: [facility] 10-18-2023 11:05-0400 SaO2% (BldA) [Mass fraction] 98 % TATTOO IDENTIFIER-C Pilo Bronx TATTOO IDENTIFIER Work Phone: [facility] 10-18-2023 11:05-0400 Systolic blood pressure 130 mm[Hg] TATTOO IDENTIFIER-C Pilo Armas TATTOO IDENTIFIER Work Phone: [facility] 09-02-2023 08:39-0500 Body temperature 98.01 [degF] Gwen Kaur PA-C Work Phone: [facility] 09-02-2023 08:39-0500 Body weight 101.61 kg Gwen Athy PA-C Work Phone: [facility] 09-02-2023 08:39-0500 Diastolic blood pressure 80 mm[Hg] Gwen Rhonay PA-C Work Phone: [facility] 09-02-2023 08:39-0500 Heart rate 108 /min Gwen Athy PA-C Work Phone: [facility] 09-02-2023 08:39-0500 Respiratory rate 18 /min Gwen Athy PA-C Work Phone: [facility] 09-02-2023 08:39-0500 SaO2% (BldA) [Mass fraction] 99 % Gwen Rhonay PA-C Work Phone: [facility] 09-02-2023 08:39-0500 Systolic blood pressure 126 mm[Hg] Gwen Athy PA-C Work Phone: [facility] 08-19-2023 11:03-0500 Body temperature 97.9 [degF] TATTOO IDENTIFIER-C Pilo Armas TATTOO IDENTIFIER Work Phone: [facility] 08-19-2023 11:03-0500 Diastolic blood pressure 74 mm[Hg] TATTOO IDENTIFIER-C Pilo Armas TATTOO IDENTIFIER Work Phone: [facility] 08-19-2023 11:03-0500 Heart rate 74 /min TATTOO IDENTIFIER-C Pilo Armas TATTOO IDENTIFIER Work Phone: [facility] 08-19-2023 11:03-0500 Respiratory rate 16 /min TATTOO IDENTIFIER-C Pilo Armas TATTOO IDENTIFIER Work Phone: [facility] 08-19-2023 11:03-0500 SaO2% (BldA) [Mass fraction] 100 % TATTOO IDENTIFIER-C Pilo Armas TATTOO IDENTIFIER Work Phone: [facility] 08-19-2023 11:03-0500 Systolic blood pressure 138 mm[Hg] TATTOO IDENTIFIER-C Pilo Armas TATTOO IDENTIFIER Work Phone: [facility] 08-19-2023 09:52-0500 Body height 157.48 cm TATTOO IDENTIFIER-C Pilo Armas TATTOO IDENTIFIER Work Phone: [facility] 08-19-2023 09:52-0500 Body mass index (BMI) [Ratio] 41.1 kg/m2 TATTOO IDENTIFIER-C Pilo Armas TATTOO IDENTIFIER Work Phone: [facility] 08-19-2023 09:52-0500 Body weight 101.83 kg TATTOO IDENTIFIER-C Pilo Armas TATTOO IDENTIFIER Work Phone: [facility] 07-16-2023 10:39-0500 Body height 157.48 cm TATTOO IDENTIFIER-C Pilo Armas TATTOO IDENTIFIER Work Phone: [facility] 07-16-2023 10:39-0500 Body mass index (BMI) [Ratio] 41.4 kg/m2 TATTOO IDENTIFIER-C Pilo Armas TATTOO IDENTIFIER Work Phone: [facility] 07-16-2023 10:39-0500 Body temperature 95.7 [degF] TATTOO IDENTIFIER-C Pilo Armas TATTOO IDENTIFIER Work Phone: [facility] 07-16-2023 10:39-0500 Body weight 102.7 kg TATTOO IDENTIFIER-C Pilo Amras TATTOO IDENTIFIER Work Phone: [facility] 07-16-2023 10:39-0500 Diastolic blood pressure 97 mm[Hg] TATTOO IDENTIFIER-C Pilo Amras TATTOO IDENTIFIER Work Phone: [facility] 07-16-2023 10:39-0500 Heart rate 84 /min TATTOO IDENTIFIER-C Pilo Armas TATTOO IDENTIFIER Work Phone: [facility] 07-16-2023 10:39-0500 Respiratory rate 16 /min TATTOO IDENTIFIER-C Pilo Armas TATTOO IDENTIFIER Work Phone: [facility] 07-16-2023 10:39-0500 SaO2% (BldA) [Mass fraction] 100 % TATTOO IDENTIFIER-C Pilo Armas TATTOO IDENTIFIER Work Phone: [facility] 07-16-2023 10:39-0500 Systolic blood pressure 149 mm[Hg] TATTOO IDENTIFIER-C Pilo Armas TATTOO IDENTIFIER Work Phone: [facility] 07-03-2023 08:10-0500 Body mass index (BMI) [Ratio] 42.3 kg/m2 TATTOO IDENTIFIER-C Pilo Kirkkins TATTOO IDENTIFIER Work Phone: [facility] 07-03-2023 08:10-0500 Body weight 104.89 kg TATTOO IDENTIFIER-C Pilo Armas TATTOO IDENTIFIER Work Phone: [facility] 07-03-2023 08:10-0500 Diastolic blood pressure 82 mm[Hg] TATTOO IDENTIFIER-C Pilo Armas TATTOO IDENTIFIER Work Phone: [facility] 07-03-2023 08:10-0500 Systolic blood pressure 130 mm[Hg] TATTOO IDENTIFIER-C Pilo Armas TATTOO IDENTIFIER Work Phone: [facility] 05-10-2023 11:18-0500 Body height 157.48 cm TATTOO IDENTIFIER-C Pilo Armas TATTOO IDENTIFIER Work Phone: [facility] 05-10-2023 11:17-0500 Body mass index (BMI) [Ratio] 42.5 kg/m2 TATTOO IDENTIFIER-C Pilo Armas TATTOO IDENTIFIER Work Phone: [facility] 05-10-2023 11:17-0500 Body weight 105.34 kg TATTOO IDENTIFIER-C Pilo Armas TATTOO IDENTIFIER Work Phone: [facility] 05-10-2023 11:17-0500 Diastolic blood pressure 83 mm[Hg] TATTOO IDENTIFIER-C Pilo Armas TATTOO IDENTIFIER Work Phone: [facility] 05-10-2023 11:17-0500 Systolic blood pressure 130 mm[Hg] TATTOO IDENTIFIER-C Pilo Armas TATTOO IDENTIFIER Work Phone: [facility] 04-29-2023 16:44-0400 Body height 157.48 cm TATTOO IDENTIFIER-C Pilo Armas TATTOO IDENTIFIER Work Phone: [facility] 04-29-2023 16:44-0400 Body mass index (BMI) [Ratio] 42.4 kg/m2 TATTOO IDENTIFIER-C Pilo Armas TATTOO IDENTIFIER Work Phone: [facility] 04-29-2023 16:44-0400 Body temperature 97 [degF] TATTOO IDENTIFIER-C Pilo Armas TATTOO IDENTIFIER Work Phone: [facility] 04-29-2023 16:44-0400 Body weight 105.23 kg TATTOO IDENTIFIER-C Pilo Armas TATTOO IDENTIFIER Work Phone: [facility] 04-29-2023 16:44-0400 Diastolic blood pressure 102 mm[Hg] TATTOO IDENTIFIER-C Pilo Armas TATTOO IDENTIFIER Work Phone: [facility] 04-29-2023 16:44-0400 Heart rate 75 /min TATTOO IDENTIFIER-C Pilo Armas TATTOO IDENTIFIER Work Phone: [facility] 04-29-2023 16:44-0400 Respiratory rate 18 /min TATTOO IDENTIFIER-C Pilo Armas TATTOO IDENTIFIER Work Phone: [facility] 04-29-2023 16:44-0400 SaO2% (BldA) [Mass fraction] 100 % TATTOO IDENTIFIER-C Pilo Armas TATTOO IDENTIFIER Work Phone: [facility] 04-29-2023 16:44-0400 Systolic blood pressure 147 mm[Hg] TATTOO IDENTIFIER-C Pilo Armas TATTOO IDENTIFIER Work Phone: [facility] 04-23-2023 09:32-0400 Body mass index (BMI) [Ratio] 42.6 kg/m2 TATTOO IDENTIFIER-C Pilo Armas TATTOO IDENTIFIER Work Phone: [facility] 04-23-2023 09:32-0400 Body weight 105.74 kg TATTOO IDENTIFIER-C Pilo Armas TATTOO IDENTIFIER Work Phone: [facility] 04-23-2023 09:32-0400 Diastolic blood pressure 78 mm[Hg] TATTOO IDENTIFIER-C Pilo Armas TATTOO IDENTIFIER Work Phone: [facility] 04-23-2023 09:32-0400 Systolic blood pressure 114 mm[Hg] TATTOO IDENTIFIER-C Pilo Armas TATTOO IDENTIFIER Work Phone: [facility] 03-12-2023 11:40-0400 Body temperature 99.8 [degF] TATTOO IDENTIFIER-C Pilo Armas TATTOO IDENTIFIER Work Phone: [facility] 03-12-2023 11:40-0400 Diastolic blood pressure 85 mm[Hg] TATTOO IDENTIFIER-C Pilo Bronx TATTOO IDENTIFIER Work Phone: [facility] 03-12-2023 11:40-0400 Heart rate 95 /min TATTOO IDENTIFIER-C Pilo Armas TATTOO IDENTIFIER Work Phone: [facility] 03-12-2023 11:40-0400 Respiratory rate 16 /min TATTOO IDENTIFIER-C Pilo Armas TATTOO IDENTIFIER Work Phone: [facility] 03-12-2023 11:40-0400 SaO2% (BldA) [Mass fraction] 97 % TATTOO IDENTIFIER-C Pilo Chanda TATTOO IDENTIFIER Work Phone: [facility] 03-12-2023 11:40-0400 Systolic blood pressure 128 mm[Hg] TATTOO IDENTIFIER-C Pilo Armas TATTOO IDENTIFIER Work Phone: [facility] 02-07-2023 17:35-0400 Body height 157.48 cm TATTOO IDENTIFIER-C Pilo Armas TATTOO IDENTIFIER Work Phone: [facility] 02-07-2023 17:35-0400 Body mass index (BMI) [Ratio] 42.6 kg/m2 TATTOO IDENTIFIER-C Pilo Armas TATTOO IDENTIFIER Work Phone: [facility] 02-07-2023 17:35-0400 Body temperature 97.4 [degF] TATTOO IDENTIFIER-C Pilo Armas TATTOO IDENTIFIER Work Phone: [facility] 02-07-2023 17:35-0400 Body weight 105.68 kg TATTOO IDENTIFIER-C Pilo Armas TATTOO IDENTIFIER Work Phone: [facility] 02-07-2023 17:35-0400 Diastolic blood pressure 89 mm[Hg] TATTOO IDENTIFIER-C Pilo Armas TATTOO IDENTIFIER Work Phone: [facility] 08-10-2023 17:35-0400 Heart rate 93 /min TATTOO IDENTIFIER-C Pilo Rossipkins TATTOO IDENTIFIER Work Phone: [facility] 02-07-2023 17:35-0400 Respiratory rate 17 /min TATTOO IDENTIFIER-C Pilo Rossipkins TATTOO IDENTIFIER Work Phone: [facility] 02-07-2023 17:35-0400 SaO2% (BldA) [Mass fraction] 100 % TATTOO IDENTIFIER-C Pilo Rossipkins TATTOO IDENTIFIER Work Phone: [facility] 02-07-2023 17:35-0400 Systolic blood pressure 124 mm[Hg] TATTOO IDENTIFIER-C Pilo Armas TATTOO IDENTIFIER Work Phone: [facility] 02-01-2023 18:59-0400 Body height 157.48 cm TATTOO IDENTIFIER-C Pilo Bronx TATTOO IDENTIFIER Work Phone: [facility] 02-01-2023 18:59-0400 Body mass index (BMI) [Ratio] 42.7 kg/m2 TATTOO IDENTIFIER-C Pilo Chanda TATTOO IDENTIFIER Work Phone: [facility] 02-01-2023 18:59-0400 Body temperature 98 [degF] TATTOO IDENTIFIER-C Pilo Bronx TATTOO IDENTIFIER Work Phone: [facility] 02-01-2023 18:59-0400 Body weight 106.14 kg TATTOO IDENTIFIER-C Pilo Bronx TATTOO IDENTIFIER Work Phone: [facility] 02-01-2023 18:59-0400 Diastolic blood pressure 76 mm[Hg] TATTOO IDENTIFIER-C Pilo Chanda TATTOO IDENTIFIER Work Phone: [facility] 02-01-2023 18:59-0400 Heart rate 111 /min TATTOO IDENTIFIER-C Pilo Armas TATTOO IDENTIFIER Work Phone: [facility] 02-01-2023 18:59-0400 Respiratory rate 18 /min TATTOO IDENTIFIER-C Pilo Armas TATTOO IDENTIFIER Work Phone: [facility] 02-01-2023 18:59-0400 SaO2% (BldA) [Mass fraction] 96 % TATTOO IDENTIFIER-C Pilo Armas TATTOO IDENTIFIER Work Phone: [facility] 02-01-2023 18:59-0400 Systolic blood pressure 149 mm[Hg] TATTOO IDENTIFIER-C Pilo Armas TATTOO IDENTIFIER Work Phone: [facility] 01-17-2023 07:50-0400 Body temperature 98.3 [degF] TATTOO IDENTIFIER-C Pilo Armas TATTOO IDENTIFIER Work Phone: [facility] 01-17-2023 07:50-0400 Diastolic blood pressure 73 mm[Hg] TATTOO IDENTIFIER-C Pilo Armas TATTOO IDENTIFIER Work Phone: [facility] 01-17-2023 07:50-0400 Heart rate 65 /min TATTOO IDENTIFIER-C Pilo Armas TATTOO IDENTIFIER Work Phone: [facility] 01-17-2023 07:50-0400 Respiratory rate 16 /min TATTOO IDENTIFIER-C Pilo Armas TATTOO IDENTIFIER Work Phone: [facility] 01-17-2023 07:50-0400 SaO2% (BldA) [Mass fraction] 96 % TATTOO IDENTIFIER-C Pilo Armas TATTOO IDENTIFIER Work Phone: [facility] 01-17-2023 07:50-0400 Systolic blood pressure 123 mm[Hg] TATTOO IDENTIFIER-C Pilo Armas TATTOO IDENTIFIER Work Phone: [facility] 01-17-2023 06:31-0400 Body height 157.48 cm TATTOO IDENTIFIER-C Pilo Armas TATTOO IDENTIFIER Work Phone: [facility] 01-17-2023 06:31-0400 Body mass index (BMI) [Ratio] 43 kg/m2 TATTOO IDENTIFIER-C Pilo Armas TATTOO IDENTIFIER Work Phone: [facility] 01-17-2023 06:31-0400 Body weight 106.8 kg TATTOO IDENTIFIER-C Pilo Armas TATTOO IDENTIFIER Work Phone: [facility] 12-26-2022 22:08-0400 Respiratory rate 18 /min TATTOO IDENTIFIER-C Pilo Armas TATTOO IDENTIFIER Work Phone: [facility] 12-26-2022 18:43-0400 Body height 157.48 cm TATTOO IDENTIFIER-C Pilo Armas TATTOO IDENTIFIER Work Phone: [facility] 12-26-2022 18:43-0400 Body mass index (BMI) [Ratio] 42 kg/m2 TATTOO IDENTIFIER-C Pilo Armas TATTOO IDENTIFIER Work Phone: [facility] 12-26-2022 18:43-0400 Body temperature 96.6 [degF] TATTOO IDENTIFIER-C Pilo Armas TATTOO IDENTIFIER Work Phone: [facility] 12-26-2022 18:43-0400 Body weight 104.32 kg TATTOO IDENTIFIER-C Pilo Armas TATTOO IDENTIFIER Work Phone: [facility] 12-26-2022 18:43-0400 Diastolic blood pressure 88 mm[Hg] TATTOO IDENTIFIER-C Pilo Armas TATTOO IDENTIFIER Work Phone: [facility] 12-26-2022 18:43-0400 Heart rate 91 /min TATTOO IDENTIFIER-C Pilo Armas TATTOO IDENTIFIER Work Phone: [facility] 12-26-2022 18:43-0400 SaO2% (BldA) [Mass fraction] 99 % TATTOO IDENTIFIER-C Pilo Armas TATTOO IDENTIFIER Work Phone: [facility] 12-26-2022 18:43-0400 Systolic blood pressure 129 mm[Hg] TATTOO IDENTIFIER-C Pilo Armas TATTOO IDENTIFIER Work Phone: [facility] 12-02-2022 10:34-0400 Body temperature 96.8 [degF] TATTOO IDENTIFIER-C Pilo Armas TATTOO IDENTIFIER Work Phone: [facility] 12-02-2022 10:34-0400 Diastolic blood pressure 78 mm[Hg] TATTOO IDENTIFIER-C Pilo Armas TATTOO IDENTIFIER Work Phone: [facility] 12-02-2022 10:34-0400 Heart rate 90 /min TATTOO IDENTIFIER-C Pilo Armas TATTOO IDENTIFIER Work Phone: [facility] 12-02-2022 10:34-0400 Respiratory rate 16 /min TATTOO IDENTIFIER-C Pilo Rossipkins TATTOO IDENTIFIER Work Phone: [facility] 12-02-2022 10:34-0400 SaO2% (BldA) [Mass fraction] 97 % TATTOO IDENTIFIER-C Pilo Rossipkins TATTOO IDENTIFIER Work Phone: [facility] 12-02-2022 10:34-0400 Systolic blood pressure 128 mm[Hg] TATTOO IDENTIFIER-C Pilo Armas TATTOO IDENTIFIER Work Phone: [facility] 11-19-2022 13:05-0400 Body height 162.56 cm TATTOO IDENTIFIER-C Pilo Chanda TATTOO IDENTIFIER Work Phone: [facility] 11-19-2022 13:05-0400 Body mass index (BMI) [Ratio] 41 kg/m2 TATTOO IDENTIFIER-C Pilo Armas TATTOO IDENTIFIER Work Phone: [facility] 11-19-2022 13:05-0400 Body temperature 98.6 [degF] TATTOO IDENTIFIER-C Pilo Armas TATTOO IDENTIFIER Work Phone: [facility] 11-19-2022 13:05-0400 Body weight 108.4 kg TATTOO IDENTIFIER-C Pilo Armas TATTOO IDENTIFIER Work Phone: [facility] 11-19-2022 13:05-0400 Diastolic blood pressure 78 mm[Hg] TATTOO IDENTIFIER-C Pilo Armas TATTOO IDENTIFIER Work Phone: [facility] 11-19-2022 13:05-0400 Heart rate 86 /min TATTOO IDENTIFIER-C Pilo Armas TATTOO IDENTIFIER Work Phone: [facility] 11-19-2022 13:05-0400 Respiratory rate 14 /min TATTOO IDENTIFIER-C Pilo Armas TATTOO IDENTIFIER Work Phone: [facility] 11-19-2022 13:05-0400 SaO2% (BldA) [Mass fraction] 99 % TATTOO IDENTIFIER-C Pilo Armas TATTOO IDENTIFIER Work Phone: [facility] 11-19-2022 13:05-0400 Systolic blood pressure 132 mm[Hg] TATTOO IDENTIFIER-C Pilo Armas TATTOO IDENTIFIER Work Phone: [facility] 10-29-2022 13:07-0400 Body height 162.56 cm TATTOO IDENTIFIER-C Pilo Armas TATTOO IDENTIFIER Work Phone: [facility] 10-29-2022 13:07-0400 Body mass index (BMI) [Ratio] 40.3 kg/m2 TATTOO IDENTIFIER-C Pilo Armas TATTOO IDENTIFIER Work Phone: [facility] 10-29-2022 13:07-0400 Body weight 106.59 kg TATTOO IDENTIFIER-C Pilo Armas TATTOO IDENTIFIER Work Phone: [facility] 10-29-2022 13:07-0400 Diastolic blood pressure 83 mm[Hg] TATTOO IDENTIFIER-C Pilo Armas TATTOO IDENTIFIER Work Phone: [facility] 10-29-2022 13:07-0400 Systolic blood pressure 119 mm[Hg] TATTOO IDENTIFIER-C Pilo Armas TATTOO IDENTIFIER Work Phone: [facility] 10-25-2022 09:53-0400 Body mass index (BMI) [Ratio] 40.8 kg/m2 TATTOO IDENTIFIER-C Pilo Armas TATTOO IDENTIFIER Work Phone: [facility] 10-25-2022 09:53-0400 Body weight 107.95 kg TATTOO IDENTIFIER-C Pilo Armas TATTOO IDENTIFIER Work Phone: [facility] 10-25-2022 09:53-0400 Diastolic blood pressure 85 mm[Hg] TATTOO IDENTIFIER-C Pilo Armas TATTOO IDENTIFIER Work Phone: [facility] 10-25-2022 09:53-0400 Heart rate 69 /min TATTOO IDENTIFIER-C Pilo Armas TATTOO IDENTIFIER Work Phone: [facility] 10-25-2022 09:53-0400 SaO2% (BldA) [Mass fraction] 97 % TATTOO IDENTIFIER-C Pilo Armas TATTOO IDENTIFIER Work Phone: [facility] 10-25-2022 09:53-0400 Systolic blood pressure 132 mm[Hg] TATTOO IDENTIFIER-C Pilo Armas TATTOO IDENTIFIER Work Phone: [facility] 10-23-2022 21:25-0400 Body mass index (BMI) [Ratio] 44.2 kg/m2 TATTOO IDENTIFIER-C Pilo Armas TATTOO IDENTIFIER Work Phone: [facility] 10-23-2022 21:25-0400 Body weight 109.8 kg TATTOO IDENTIFIER-C Pilo Armas TATTOO IDENTIFIER Work Phone: [facility] 10-23-2022 20:33-0400 Body temperature 98.4 [degF] TATTOO IDENTIFIER-C Pilo Armas TATTOO IDENTIFIER Work Phone: [facility] 10-23-2022 20:33-0400 Diastolic blood pressure 97 mm[Hg] TATTOO IDENTIFIER-C Pilo Armas TATTOO IDENTIFIER Work Phone: [facility] 10-23-2022 20:33-0400 Heart rate 75 /min TATTOO IDENTIFIER-C Pilo Armas TATTOO IDENTIFIER Work Phone: [facility] 10-23-2022 20:33-0400 Respiratory rate 15 /min TATTOO IDENTIFIER-C Pilo Armas TATTOO IDENTIFIER Work Phone: [facility] 10-23-2022 20:33-0400 SaO2% (BldA) [Mass fraction] 100 % TATTOO IDENTIFIER-C Pilo Armas TATTOO IDENTIFIER Work Phone: [facility] 10-23-2022 20:33-0400 Systolic blood pressure 154 mm[Hg] TATTOO IDENTIFIER-C Pilo Armas TATTOO IDENTIFIER Work Phone: [facility] 10-15-2022 11:42-0400 Body temperature 98.8 [degF] TATTOO IDENTIFIER-C Pilo Armas TATTOO IDENTIFIER Work Phone: [facility] 10-15-2022 11:42-0400 Diastolic blood pressure 92 mm[Hg] TATTOO IDENTIFIER-C Pilo Kirkkins TATTOO IDENTIFIER Work Phone: [facility] 10-15-2022 11:42-0400 Heart rate 89 /min TATTOO IDENTIFIER-C Pilo Armas TATTOO IDENTIFIER Work Phone: [facility] 10-15-2022 11:42-0400 Respiratory rate 16 /min TATTOO IDENTIFIER-C Pilo Rossipkins TATTOO IDENTIFIER Work Phone: [facility] 10-15-2022 11:42-0400 SaO2% (BldA) [Mass fraction] 97 % TATTOO IDENTIFIER-C Pilo Armas TATTOO IDENTIFIER Work Phone: [facility] 10-15-2022 11:42-0400 Systolic blood pressure 136 mm[Hg] TATTOO IDENTIFIER-C Pilo Rossipkins TATTOO IDENTIFIER Work Phone: [facility] 09-12-2022 13:32-0400 Body temperature 97.8 [degF] TATTOO IDENTIFIER-C Pilo Rossipkins TATTOO IDENTIFIER Work Phone: [facility] 09-12-2022 13:32-0400 Diastolic blood pressure 76 mm[Hg] TATTOO IDENTIFIER-C Pilo Bronx TATTOO IDENTIFIER Work Phone: [facility] 09-12-2022 13:32-0400 Heart rate 80 /min TATTOO IDENTIFIER-C Pilo Armas TATTOO IDENTIFIER Work Phone: [facility] 09-12-2022 13:32-0400 Respiratory rate 16 /min TATTOO IDENTIFIER-C Pilo Armas TATTOO IDENTIFIER Work Phone: [facility] 09-12-2022 13:32-0400 SaO2% (BldA) [Mass fraction] 98 % TATTOO IDENTIFIER-C Pilo Rossipkins TATTOO IDENTIFIER Work Phone: [facility] 09-12-2022 13:32-0400 Systolic blood pressure 134 mm[Hg] TATTOO IDENTIFIER-C Pilo Armas TATTOO IDENTIFIER Work Phone: [facility] 07-16-2022 20:47-0500 Diastolic blood pressure 76 mm[Hg] [facility] 07-16-2022 20:47-0500 Heart rate 72 /min [facility] 07-16-2022 20:47-0500 Respiratory rate 16 /min [facility] 07-16-2022 20:47-0500 SaO2% (BldA) [Mass fraction] 97 % [facility] 07-16-2022 20:47-0500 Systolic blood pressure 108 mm[Hg] [facility] 07-16-2022 17:37-0500 Body height 157.48 cm [facility] 07-16-2022 17:37-0500 Body mass index (BMI) [Ratio] 42.7 kg/m2 [facility] 07-16-2022 17:37-0500 Body temperature 97.6 [degF] [facility] 07-16-2022 17:37-0500 Body weight 106.14 kg [facility] 05-03-2022 12:12-0400 Body temperature 97.59 [degF] Gwen Athy PA-C Work Phone: [facility] 05-03-2022 12:12-0400 Body weight 104.87 kg Gwen Athy PA-C Work Phone: [facility] 05-03-2022 12:12-0400 Diastolic blood pressure 82 mm[Hg] Gwen Athy PA-C Work Phone: [facility] 05-03-2022 12:12-0400 Heart rate 73 /min Gwen Athy PA-C Work Phone: [facility] 05-03-2022 12:12-0400 Respiratory rate 18 /min Gwen Athy PA-C Work Phone: [facility] 05-03-2022 12:12-0400 SaO2% (BldA) [Mass fraction] 99 % Gwen Athy PA-C Work Phone: [facility] 05-03-2022 12:12-0400 Systolic blood pressure 134 mm[Hg] Gwen Athy PA-C Work Phone: [facility] 11-29-2021 10:53-0400 Body weight 103.87 kg Dalila Guallpa APRN.DASHBOARD DEVELOPER Work Phone: [facility] 11-29-2021 10:53-0400 Diastolic blood pressure 68 mm[Hg] Dalila Guallpa APRN.DASHBOARD DEVELOPER Work Phone: [facility] 11-29-2021 10:53-0400 Systolic blood pressure 122 mm[Hg] Dalila Ramu WATER RESOURCE CONSULTANT.DASHBOARD DEVELOPER Work Phone: [facility] 11-09-2021 18:23-0400 Body temperature 98.49 [degF] Michelle Farah WATER RESOURCE CONSULTANT.DASHBOARD DEVELOPER Work Phone: [facility] 11-09-2021 18:23-0400 Body weight 105.23 kg Michelle Farah WATER RESOURCE CONSULTANT.DASHBOARD DEVELOPER Work Phone: [facility] 11-09-2021 18:23-0400 Diastolic blood pressure 74 mm[Hg] Michelle Farah WATER RESOURCE CONSULTANT.DASHBOARD DEVELOPER Work Phone: [facility] 11-09-2021 18:23-0400 Heart rate 104 /min Michelle Farah WATER RESOURCE CONSULTANT.DASHBOARD DEVELOPER Work Phone: [facility] 11-09-2021 18:23-0400 Respiratory rate 16 /min Michelle Fraah WATER RESOURCE CONSULTANT.DASHBOARD DEVELOPER Work Phone: [facility] 11-09-2021 18:23-0400 SaO2% (BldA) [Mass fraction] 99 % Michelle Farah WATER RESOURCE CONSULTANT.DASHBOARD DEVELOPER Work Phone: [facility] 11-09-2021 18:23-0400 Systolic blood pressure 124 mm[Hg] Michelle Farah WATER RESOURCE CONSULTANT.DASHBOARD DEVELOPER Work Phone: [facility] Encounters Encounter Date Encounter Type Care Provider Facility Start: 03-17-2025 ambulatory Rose Marie Doran lity:[facility] Start: 03-15-2025 Dr. Rose Marie Morales MD -[facility] Start: 03-14-2025 Dr. Rose Marie Morales MD -[facility] Start: 03-13[facility] Start: 03-12-2025 Dr. Rose Marie Morales MD -[facility] Start: 03-12-2025 End: 03-15-2025 Evaluation and management of inpatient No Primary [facility] Physician [facility] Start: 03-12-2025 End: 03-12-[address] Rose Marie Morales MD -[facility] Work Phone: Start: 03-12-2025 End: 03-15-2025 Dr. Rose Marie Morales MD -[facility] Work Phone: Start: 03-12-2025 End: 03-12-2025 ambulatory No Primary Care Physician -[facility] Start: 03-05-2025 ambulatory Rose Marie Morales Faci lity:[facility] Start: 03-03-2025 ambulatory No Primary Car e Physician Facility:[facility] Start: 03-03-2025 Non-patient / Non-visit Dr. Chey Dupree DO [facility] Start: 03-03-2025 Dr. Chey Adair DO [facility] Start: 03-03-2025 End: 03-03-2025 ambulatory No Primary Care Physician -[facility] Start: 03-03-2025 End: 03-03-[address] Chey Dupree DO -[facility] Work Phone: Start: 03-03-2025 End: 03-03-2025 Dr. Chey Dupree DO -[facility] Work Phone: Start: 02-26-2025 End: 02-26-2025 Patient encounter procedure Renetta Nielsen CNM -[facility] Work Phone: Start: 02-26-2025 End: 02-26-2025 Renetta Nielsne CNM -[facility] Work Phone: Start: 02-26-2025 End: 02-26-2025 ambulatory No Primary Care Physician -[facility] Start: 02-26-2025 End: 02-26-2025 ambulatory No Primary Care Physician Facility:[facility] Start: 02-23-2025 End: 02-23-2025 ambulatory No Primary Care Physician -[facility] Start: 02-23-2025 End: 02-23-[address] Rose Marie Morales MD -[facility] Work Phone: Start: 02-23-2025 End: 02-23-2025 Dr. Rose Marie Morales MD -[facility] Work Phone: Start: 02-23-2025 End: 02-23-2025 ambulatory Rose Marie Morales Facility:[facility] Start: 02-19-2025 End: 02-19-[address] Rose Marie Morales MD -[facility] Work Phone: Start: 02-19-2025 End: 02-19-2025 Dr. Rose Marie Morales MD -[facility] Work Phone: Start: 02-19-2025 End: 02-19-2025 ambulatory No Primary Care Physician [facility] Start: 02-19-2025 End: 02-19-2025 ambulatory Rose Marie Morales Facility:[facility] Start: 02-16-2025 End: 02-16-2025 ambulatory No Primary Care Physician -Ultrasound [facility] Start: 02-16-2025 End: 02-16-[address] Rose Marie Morales MD -Ultrasound [facility] Work Phone: Start: 02-16-2025 End: 02-16-2025 Dr. Rose Marie Morales MD -Ultrasound [facility] Work Phone: Start: 02-16-2025 End: 02-16-2025 ambulatory Rose Marie Morales Facility:[facility] Start: 02-12-2025 ambulatory Rose Marie Morales Faci lity:[facility] Start: 02-10-2025 End: 02-10-[address] Chey Dupree DO -[facility] Work Phone: Start: 02-10-2025 End: 02-10-2025 Dr. Chey Dupree DO -[facility] Work Phone: Start: 02-10-2025 End: 02-10-2025 ambulatory No Primary Care Physician -[facility] Start: 02-09-2025 End: 02-09-2025 ambulatory No Primary Care Physician -[facility] Start: 02-09-2025 End: 02-09-[address] Rose Marie Moralse MD -[facility] Work Phone: Start: 02-09-2025 End: 02-09-2025 Dr. Rose Marie Morales MD -[facility] Work Phone: Start: 02-08-2025 End: 02-09-2025 ambulatory Rose Marie Morales Facility:[facility] Start: 02-04-2025 ambulatory Chey Corriganty:[facility] Start: 02-02-2025 End: 02-02-2025 ambulatory No Primary Care Physician -Ultrasound [facility] Start: 02-02-2025 End: 02-02-[address] Rose Marie Morales MD -Ultrasound [facility] Work Phone: Start: 02-02-2025 End: 02-02-2025 Dr. Rose Marie Morales MD -Ultrasound [facility] Work Phone: Start: 02-02-2025 End: 02-02-2025 Patient encounter procedure Renetta BRADSHAW -[facility] Work Phone: Start: 02-02-2025 End: 02-02-2025 Renetta BRADSHAW -[facility] Work Phone: Start: 02-02-2025 End: 02-02-2025 ambulatory No Primary Care Physician -[facility] Start: 02-02-2025 End: 02-02-2025 ambulatory Rose Marie Morales Facility:[facility] Start: 01-28-2025 ambulatory Chey Corriganty:[facility] Start: 01-21-2025 End: 01-21-[address] Chey Dupree DO -[facility] Work Phone: Start: 01-21-2025 End: 01-21-2025 Dr. Chey Dupree DO -[facility] Work Phone: Start: 01-21-2025 End: 01-21-2025 ambulatory No Primary Care Physician -[facility] Start: 01-19-2025 End: 01-19-[address] Rose Marie Morales MD -[facility] Work Phone: Start: 01-19-2025 End: 01-19-2025 Dr. Rose Marie Morales MD -[facility] Work Phone: Start: 01-19-2025 End: 01-19-2025 ambulatory No Primary Care Physician -[facility] Start: 01-15-2025 ambulatory Chey Dupree Fa cility:[facility] Start: 01-11-2025 ambulatory Rose Marie Doran lity:[facility] Start: 01-11-2025 Non-patient / Non-visit Dr. Rose Marie Morales MD -[facility] Start: 01-11-2025 Dr. Rose Marie Morales MD -[facility] Start: 01-11-2025 End: 01-11-2025 ambulatory No Primary Care Physician -[facility] Start: 01-11-2025 End: 01-11-[address] Rose Marie Morales MD -[facility] Work Phone: Start: 01-11-2025 End: 01-11-2025 Dr. Rose Marie Morales MD -[facility] Work Phone: Start: 01-06-2025 End: 01-06-2025 Patient encounter procedure Parvin KEARNEY -[facility] Work Phone: Start: 01-06-2025 End: 01-06-2025 Parvin KEARNEY -[facility] Work Phone: Start: 01-06-2025 End: 01-06-2025 ambulatory No Primary Care Physician -[facility] Start: 01-04-2025 End: 01-04-2025 ambulatory No Primary Care Physician -[facility] Start: 01-04-2025 End: 01-04-2025 Patient encounter procedure Renetta Nielsen CNM -[facility] Start: 01-04-2025 End: 01-04-2025 Renetta Nielsen CN -[facility] Start: 01-04-2025 End: 01-04-2025 ambulatory Renetta Nielsen Facility:[facility] Start: 12-09-2024 End: 12-09-[address] Chey Dupree DO -[facility] Work Phone: Start: 12-09-2024 End: 12-09-2024 Dr. Chey Dupree DO -[facility] Work Phone: Start: 12-09-2024 End: 12-09-2024 ambulatory No Primary Care Physician [facility] Work Phone: Start: 11-11-2024 End: 11-11-[address] Chey Dupree DO -[facility] Work Phone: Start: 11-11-2024 End: 11-11-2024 ambulatory No Primary Care Physician [facility] Work Phone: Start: 11-03-2024 End: 11-03-2024 ambulatory MD NO PRIMARY CARE [facility] Start: 10-16-2024 End: 10-16-2024 ambulatory Renetta Nielsen Facility:[facility] Start: 10-16-2024 End: 10-16-2024 Patient encounter procedure Renetta BRADSHAW -[facility] Work Phone: Start: 10-13-2024 [facility]ulatory [facility] Start: 10-12-2024 End: 10-12-2024 Emergency department patient visit NONE PHYSICIAN Facility:[facility] Start: 10-07-2024 End: 10-07-[address] Chey SUMMERSMedical Out Work Phone: Start: 10-07-2024 End: 10-07-2024 ambulatory No Primary Care Physician [facility] Work Phone: Start: 10-01-2024 End: 10-01-[address] Chey Dupree DO -[facility] Work Phone: Start: 10-01-2024 End: 10-01-2024 ambulatory No Primary Care Physician [facility] Work Phone: Start: 09-17-2024 End: 09-17-2024 Patient encounter procedure Renetta Nielsen [facility] -[facility] Work Phone: Start: 09-17-2024 End: 09-17-2024 ambulatory No Primary Care Physician [facility] Work Phone: Start: 09-17-2024 End: 09-17-2024 ambulatory Renetta Nielsen Facility:[facility] Start: 09-15-2024 End: 09-15-2024 ambulatory GUY COTTON Facility:[facility] Start: 09-15-2024 End: 09-15-2024 Patient encounter procedure Juan Alberto Lockhart PA Work Phone: [facility] Comment on above: Dental infection (Pr imary Dx) Start: 09-07-2024 End: 09-07-2024 ambulatory No Primary Care Physician [facility] Work Phone: Start: 09-07-2024 End: 09-07-2024 Patient encounter procedure Parvin Curry TATTOO IDENTIFIER-C -Lab, [facility] Start: 09-07-2024 End: 09-07-2024 ambulatory Parvin Curry NP Facility:[facility] Start: 08-17-2024 End: 08-17-[address] Rose Marie Morales MD -Laboratory, Specimen Work Phone: Start: 08-17-2024 End: 08-17-[address] Rose Marie Morales MD -[facility] Work Phone: Start: 08-17-2024 End: 08-17-2024 ambulatory No Primary Care Physician Facility:[facility] Start: 08-17-2024 End: 08-17-2024 ambulatory Rose Marieviet Horvathje Facility:[facility] Start: 07-30-2024 End: 07-30-2024 Emergency department patient visit Dr. Jose Posadas DO -Emergency Department Work Phone: Start: 07-29-2024 End: 07-29-2024 ambulatory Guy Hernandez WATER RESOURCE CONSULTANT.DASHBOARD DEVELOPER Work Phone: OB/Gynecology Comment on above: Positive t est (Primary Dx); History of miscarriage Start: 07-29-2024 End: 07-29-2024 Telemedicine consultation with patient Guy Hernandez APRN.DASHBOARD DEVELOPER Work Phone: OB/Gynecology Start: 07-28-2024 End: 07-30-2024 Telephone encounter Juan Alberto RODRIGUEZ Work Phone: [facility] Comment on above: Results Start: 07-27-2024 End: 07-27-2024 Telephone encounter Michelle Lundberg APRN.CNM Work Phone: OB/Gynecology Comment on above: Patient Question Start: 07-27-2024 End: 07-27-2024 ambulatory GUY COTTON Facility:[facility] Start: 07-27-2024 End: 07-27-2024 Patient encounter procedure Perry Delcid APRN.DASHBOARD DEVELOPER Work Phone: [facility] Comment on above: Urinary frequency (P rimary Dx) Start: 07-02-2024 End: 07-02-2024 ambulatory GUY COTTON Facility:[facility] Start: 07-02-2024 End: 07-02-2024 Patient encounter procedure Juan Alberto RODRIGUEZ Work Phone: [facility] Comment on above: Dental infection (Pr imary Dx) Start: 04-03-2024 End: 04-03-2024 Emergency department patient visit Jose Posadas Facility:[facility] Start: 03-30-2024 End: 03-30-2024 ambulatory Guy Cotton Facility:[facility] Start: 03-23-2024 End: 03-23-2024 ambulatory Guycatherine Millardo Facility:[facility] Start: 03-23-2024 End: 03-23-2024 [facility] Start: 03-20-2024 End: 03-20-2024 ambulatory Guycatherine Millardo Facility:[facility] Start: 11-12-2023 End: 11-12-2023 Emergency department patient visit MICKEY FOREMAN DO [facility] Start: 10-31-2023 End: 10-31-2023 ambulatory TATTOO IDENTIFIER-C Pilo Armas TATTOO IDENTIFIER Work Phone: [facility] Work Phone: Start: 10-31-2023 End: 10-31-2023 Patient encounter procedure TATTOO IDENTIFIER-C Pilo Armas TATTOO IDENTIFIER Work Phone: [facility]-Laboratory Work Phone: Start: 2023 End: 2023 ambulatory TATTOO IDENTIFIER-C Pilo Armas TATTOO IDENTIFIER Work Phone: [facility] Work Phone: Start: 2023 End: 2023 Patient encounter procedure TATTOO IDENTIFIER-C Pilo Armas TATTOO IDENTIFIER Work Phone: [facility] Work Phone: Start: 10-18-2023 End: 10-18-2023 ambulatory TATTOO IDENTIFIER-C Pilo Armas TATTOO IDENTIFIER Work Phone: [facility] Work Phone: Start: 10-18-2023 Patient encounter status TATTOO IDENTIFIER-C Pilo Armas TATTOO IDENTIFIER Work Phone: [facility] Start: 10-18-2023 End: 10-18-2023 Encounter for general adult medical examination without abnormal findings TATTOO IDENTIFIER-C Pilo Armas TATTOO IDENTIFIER Work Phone: [facility] Start: 10-18-2023 End: 10-18-2023 Patient encounter procedure TATTOO IDENTIFIER-C Pilo Armas TATTOO IDENTIFIER Work Phone: [facility] Internal Medicine Work Phone: Start: 10-04-2023 End: 10-04-2023 Patient encounter procedure TATTOO IDENTIFIER-C Pilo Armas TATTOO IDENTIFIER Work Phone: [facility] Orthopaedic Specia Work Phone: Start: 09-19-2023 End: 09-19-2023 ambulatory TATTOO IDENTIFIER-C Pilo Armas TATTOO IDENTIFIER Work Phone: [facility] Work Phone: Start: 09-19-2023 End: 09-19-2023 Patient encounter procedure TATTOO IDENTIFIER-C Pilo Armas TATTOO IDENTIFIER Work Phone: [facility]-Laboratory Work Phone: Start: 09-02-2023 End: 09-02-2023 Patient encounter procedure Gwen SUTHERLANDC Work Phone: [facility] Comment on above: Strep throat (Primar y Dx) Start: 08-19-2023 End: 08-19-2023 Emergency department patient visit TATTOO IDENTIFIER-C Pilo Armas TATTOO IDENTIFIER Work Phone: [facility]-Emergency Department Work Phone: Start: 07-16-2023 End: 07-16-2023 Emergency department patient visit TATTOO IDENTIFIER-C Pilo Armas TATTOO IDENTIFIER Work Phone: [facility]-Emergency Department Work Phone: Start: 07-03-2023 End: 07-03-2023 Patient encounter procedure TATTOO IDENTIFIER-C Pilo Armas TATTOO IDENTIFIER Work Phone: [facility] Work Phone: Start: 05-10-2023 End: 05-10-2023 ambulatory TATTOO IDENTIFIER-C Pilo Armas TATTOO IDENTIFIER Work Phone: [facility] Work Phone: Start: 05-10-2023 End: 05-10-2023 Patient encounter procedure TATTOO IDENTIFIER-C Pilo Armas TATTOO IDENTIFIER Work Phone: [facility] Work Phone: Start: 04-30-2023 End: 04-30-2023 ambulatory TATTOO IDENTIFIER-C Pilo Armas TATTOO IDENTIFIER Work Phone: [facility] Work Phone: Start: 04-30-2023 End: 04-30-2023 Patient encounter procedure TATTOO IDENTIFIER-C Pilo Armas TATTOO IDENTIFIER Work Phone: [facility]-Outpatient Breast Imaging Work Phone: Start: 04-29-2023 End: 04-29-2023 Emergency department patient visit TATTOO IDENTIFIER-C Pilo Armas TATTOO IDENTIFIER Work Phone: [facility]-Emergency Department Work Phone: Start: 04-23-2023 End: 04-23-2023 Patient encounter procedure TATTOO IDENTIFIER-C Pilo Armas TATTOO IDENTIFIER Work Phone: [facility] Work Phone: Start: 03-12-2023 End: 03-12-2023 Patient encounter procedure TATTOO IDENTIFIER-C Pilo Armas TATTOO IDENTIFIER Work Phone: [facility] Work Phone: Start: 02-08-2023 ambulatory PILO MIX WATER RESOURCE CONSULTANT - DASHBOARD DEVELOPER Facility:B Start: 02-07-2023 End: 02-07-2023 Emergency department patient visit TATTOO IDENTIFIER-C Pilo Armas TATTOO IDENTIFIER Work Phone: [facility]-Emergency Department Work Phone: Start: 02-01-2023 End: 02-01-2023 Emergency department patient visit TATTOO IDENTIFIER-C Pilo Armas TATTOO IDENTIFIER Work Phone: [facility]-Emergency Department Work Phone: Start: 02-01-2023 End: 02-01-2023 ambulatory PILO ARMAS WATER RESOURCE CONSULTANT - DASHBOARD DEVELOPER Facility:[facility] Start: 01-17-2023 Non-patient / Non-visit TATTOO IDENTIFIER-Sai Armas TATTOO IDENTIFIER Work Phone: [facility] Start: 01-17-2023 End: 01-17-2023 Admission to same day surgery center TATTOO IDENTIFIER-C Pilo Armas TATTOO IDENTIFIER Work Phone: [facility]-Endoscopy Work Phone: Start: 01-17-2023 End: 01-17-2023 ambulatory TATTOO IDENTIFIER-C Pilo Armas TATTOO IDENTIFIER Work Phone: [facility] Work Phone: Start: 12-26-2022 End: 12-26-2022 Emergency department patient visit TATTOO IDENTIFIER-C Pilo Armas TATTOO IDENTIFIER Work Phone: [facility]-Emergency Department Work Phone: Start: 12-07-2022 End: 12-07-2022 ambulatory TATTOO IDENTIFIER-C Pilo Armas TATTOO IDENTIFIER Work Phone: [facility] Work Phone: Start: 12-07-2022 End: 12-07-2022 Patient encounter procedure TATTOO IDENTIFIER-C Pilo Armas TATTOO IDENTIFIER Work Phone: [facility] [facility] Start: 12-02-2022 End: 12-02-2022 Patient encounter procedure TATTOO IDENTIFIER-C Pilo Armas TATTOO IDENTIFIER Work Phone: [facility] Start: 11-19-2022 End: 11-19-2022 Patient encounter procedure TATTOO IDENTIFIER-C Pilo Armas TATTOO IDENTIFIER Work Phone: [facility] Start: 11-15-2022 End: 11-15-2022 Patient encounter procedure TATTOO IDENTIFIER-C Pilo Armas TATTOO IDENTIFIER Work Phone: [facility] Start: 10-29-2022 End: 10-29-2022 ambulatory TATTOO IDENTIFIER-C Pilo Armas TATTOO IDENTIFIER Work Phone: [facility] Work Phone: Start: 10-29-2022 End: 10-29-2022 Patient encounter procedure TATTOO IDENTIFIER-C Pilo Armas TATTOO IDENTIFIER Work Phone: [facility] Specimen Start: 10-29-2022 End: 10-29-2022 Patient encounter procedure TATTOO IDENTIFIER-C Pilo Armas TATTOO IDENTIFIER Work Phone: [facility] Start: 10-25-2022 End: 10-25-2022 Patient encounter procedure TATTOO IDENTIFIER-C Pilo Rossipkins TATTOO IDENTIFIER Work Phone: [facility] Start: 10-23-2022 End: 10-23-2022 Emergency department patient visit TATTOO IDENTIFIER-C Pilo Kirkkins TATTOO IDENTIFIER [facility] Start: 10-15-2022 End: 10-15-2022 Patient encounter procedure TATTOO IDENTIFIER-C Pilo Armas TATTOO IDENTIFIER Work Phone: [facility] Start: 10-10-2022 End: 10-10-2022 ambulatory [facility] Start: 09-12-2022 End: 09-12-2022 Patient encounter procedure TATTOO IDENTIFIER-C Pilo Armas TATTOO IDENTIFIER Work Phone: [facility] Start: 07-16-2022 End: 07-16-2022 [facility] Start: 07-16-2022 End: 07-16-2022 Subsequent hospital visit by physician [facility] Work Phone: Radiology Comment on above: Lumbar back pain wit h radiculopathy affecting lower extremity [M54.16] Start: 06-18-2022 End: 06-18-2022 Patient encounter procedure ALEXANDRE NOLAN WATER RESOURCE CONSULTANT-DASHBOARD DEVELOPER [facility] Start: 05-03-2022 End: 05-03-2022 Patient encounter procedure Gwen Kaur PA-C Work Phone: [facility] Comment on above: Lower respiratory in fection (Primary Dx); Exposure to the flu Start: 11-29-2021 End: 11-29-2021 Patient encounter procedure Dalila Guallpa MARISA.DASHBOARD DEVELOPER Work Phone: OB/Gynecology Comment on above: Irregular menstrual cycle (Primary Dx) Start: 11-09-2021 End: 11-09-2021 Patient encounter procedure Michelle Sofi [place].DASHBOARD DEVELOPER Work Phone: [facility] Comment on above: Odontalgia (Primary Dx) Start: 06-12-2021 End: 06-12-2021 Subsequent hospital visit by physician Sarah [facility] Work Phone: Radiology Comment on above: Acute pain of left s houlder [M25.512] Start: 07-04-2018 Patient requested procedure Michelle Sofi [place].DASHBOARD DEVELOPER Work Phone: [facility] Work Phone: Start: 08-02-2017 Evaluation and management of inpatient UNKNOWN PROVIDER [facility] [employer] [facility] Procedures Date Procedure Procedure Detail Performing Clinician Start: 03-15-2025 Blood count smear mcrscp w/mnl difrntl wbc count No Primary Care Physician Start: 03-15-2025 Estimated creatinine clearance No Primar y Care Physician Start: 03-15-2025 Mean corpuscular hemoglobin concentration determination No Primary Care Physician Start: 03-15-2025 Nucleated red blood cell count procedure No Primary Care Physician Start: 03-15-2025 Platelet mean volume determination No Primary Care Physician Start: 03-12-2025 Benzodiazepine measurement, urine No Luciana lilliana Care Physician Start: 03-12-2025 Cocaine measurement, urine No Primary Ca re Physician Start: 03-12-2025 Methadone measurement, urine No Primary Care Physician Start: 03-12-2025 Urine amphetamine measurement No Primary Care Physician Start: 03-12-2025 Urine cannabinoid measurement No Primary Care Physician Start: 03-12-2025 Urine opiate measurement No Primary Care Physician Start: 03-12-2025 Serologic test for syphilis No Primary C are Physician Start: 03-03-2025 Measurement of pH in vaginal fluid specimen using nitrazine yellow for detection of rupture of amniotic membrane No Primary Care Physician Comment on above: Amniotic fluid not present indicates No Rupture of FetalMembranes at time of specimen collection. Start: 02-26-2025 Blood count smear mcrscp w/mnl difrntl wbc count No Primary Care Physician Start: 02-26-2025 Mean corpuscular hemoglobin concentration determination No Primary Care Physician Start: 02-26-2025 Nucleated red blood cell count procedure No Primary Care Physician Start: 02-26-2025 Platelet mean volume determination No Primary Care Physician Start: 02-26-2025 Total iron binding capacity measurement No Primary Care Physician Start: 02-23-2025 Ultrasonography for biophysical profile without non-stress testing No Primary Care Physician Start: 02-19-2025 Blood count smear mcrscp w/mnl difrntl wbc count No Primary Care Physician Start: 02-19-2025 Mean corpuscular hemoglobin concentration determination No Primary Care Physician Start: 02-19-2025 Nucleated red blood cell count procedure No Primary Care Physician Start: 02-19-2025 Platelet mean volume determination No Primary Care Physician Start: 02-19-2025 Procedure No Primary Care Physician Comment on above: Performed at: [facility] [address] Director: Segundo Bartlett PhD, Phone: [phone] Test Ordered: [id number] Bile Acids, Fractionated LCMSUrsodeoxycholic Acids <0.10 umol/L ES Reference Range: .Reference Range:All Ages: <1.9Cholic Acids 3.4 [H ] umol/L ES Reference Range: .Reference Range:All Ages: <2.2Chenodeoxycholic Acids 2.0 umol/L ES Reference Range: .Reference Range:All Ages: <5.8Deoxycholic Acids <0.10 umol/L ES Reference Range: .Reference Range:All Ages: <3.3Total Bile Acids 5.4 umol/L ES Reference Range: .This test was developed and its performance characteristicsdetermined by [facility]. It has not been cleared or approvedby the Food and Drug Administration.Reference Range:All Ages: <9.2Performed at: [facility] [place] [id number] Director: Segundo Bartlett PhD, Phone: [phone] at: [facility] - [facility] [id number] [place], [place] [id number] Director: Magali Dill MD, Phone: [phone] reported result: COMMENT Edited by: TONY on 02/26/25:1808 AMENDED REPORT 02/26/251807 [facility]. previously reported as: COMMENT Performed at: [address] [id number] Director: Segundo Bartlett PhD, Phone: [phone] Start: 02-16-2025 Procedure No Primary Care Physician Comment on above: Test Ordered: [id number] Bile Acids, Fractio nated LCMSUrsodeoxycholic Acids <0.10 umol/L ES Reference Range: .Reference Range:All Ages: <1.9Cholic Acids 2.7 [H ] umol/L ES Reference Range: .Reference Range:All Ages: <2.2Chenodeoxycholic Acids 1.8 umol/L ES Reference Range: .Reference Range:All Ages: <5.8Deoxycholic Acids <0.10 umol/L ES Reference Range: .Reference Range:All Ages: <3.3Total Bile Acids 4.5 umol/L ES Reference Range: .This test was developed and its performance characteristicsdetermined by [facility]. It has not been cleared or approvedby the Food and Drug Administration.Reference Range:All Ages: <9.2Performed at: [facility] [address] [place], [place] [id number] Director: Magali Dill MD, Phone: [phone] at: [address] [id number] Director: Segundo Bartlett PhD, Phone: [phone] Start: 02-16-2025 Ultrasonography for biophysical profile without non-stress testing No Primary Care Physician Start: 02-09-2025 Ultrasonography for biophysical profile without non-stress testing No Primary Care Physician Start: 02-02-2025 End: 02-02-2025 Ultrasound scan for growth No Prim [place] Care Physician Start: 01-11-2025 Urnls dip stick/tablet reagent auto microscopy No Primary Care Physician Start: 01-11-2025 Urine culture No Primary Care Physician Start: 01-04-2025 Blood count smear mcrscp w/mnl difrntl wbc count No Primary Care Physician Start: 01-04-2025 Mean corpuscular hemoglobin concentration determination No Primary Care Physician Start: 01-04-2025 Measurement of glucose 2 hours after glucose challenge for glucose tolerance test No Primary Care Physician Start: 01-04-2025 Nucleated red blood cell count procedure No Primary Care Physician Start: 01-04-2025 Platelet mean volume determination No Primary Care Physician Start: 01-04-2025 Serologic test for syphilis No Primary C are Physician Start: 01-04-2025 Total iron binding capacity measurement No Primary Care Physician Start: 09-17-2024 Hepatitis C antibody measurement No Prim darin Care Physician Comment on above: Reactive: Presumptive evidence of antibo dies to HCV. Follow CDC recommendations for supplemental testing.Non-Reactive: Antibodies to HCV were not detected; does not exclude the possibility of exposure to HCVReactive Results are presumptive evidence of antibodies to HCV. Follow CDC recommendations for supplemental testing.Order confirmation testing: HCV Quant by PCR testing - HCVPCR lc#[id number] Non Reactive: < 0.8 Equivocal: >/= 0.8 to < 1.0 Reactive: >/= 1.0The CDC requires that a reactive/equivocal HCV antibody result be sent out for confirmation. HCV Quant by PCR testing. Start: 09-17-2024 Rubella IgG measurement No Primary Care Physician Comment on above: Antibody Result: InterpretationNon-React patrice: Non-ImmuneReactive: ImmuneThe following results were obtained with the [employer] Rubella IgG assay. Results from assays of other manufacturers cannot be used interchangeably. Start: 09-17-2024 Serologic test for syphilis No Primary C are Physician Start: 09-07-2024 Procedure No Primary Care Physician Start: 08-17-2024 Urine culture No Primary Care Physician Start: 07-30-2024 Urnls dip stick/tablet reagent auto microscopy No Primary Care Physician Start: 07-30-2024 Transvaginal obstetric ultrasonography No Primary Care Physician Start: 07-30-2024 Estimated creatinine clearance No Primar y Care Physician Start: 07-30-2024 Measurement of renal function No Primary Care Physician Comment on above: GFR Calc Start: 07-27-2024 Urnls dip stick/tablet rgnt auto w/o microscopy Michelle Farah WATER RESOURCE CONSULTANT.DASHBOARD DEVELOPER Work Phone: Start: 2023 Plain chest X-ray TATTOO IDENTIFIER-C Pilo Armas TATTOO IDENTIFIER Work Phone: Start: 10-18-2023 SARS-CoV-2, Influenza & RSV (PCR) TATTOO IDENTIFIER-C Jack Armas TATTOO IDENTIFIER Work Phone: Start: 10-04-2023 X-ray of lumbosacral spine TATTOO IDENTIFIER-C Pilo Armas TATTOO IDENTIFIER Work Phone: Start: 09-02-2023 STREP A MOLECULAR (POC) [facility] Provider Start: 08-19-2023 Plain x-ray of pelvis and lower extremity TATTOO IDENTIFIER-C Pilo Armas TATTOO IDENTIFIER Work Phone: Start: 05-10-2023 Urine culture TATTOO IDENTIFIER-C Pilo Armas TATTOO IDENTIFIER Work Phone: Start: 04-30-2023 Bilateral mammography TATTOO IDENTIFIER-C Pilo Armas TATTOO IDENTIFIER Work Phone: Start: 04-30-2023 Ultrasonography of breast TATTOO IDENTIFIER-C Pilo Armas TATTOO IDENTIFIER Work Phone: Start: 04-29-2023 Computed tomography of abdomen and pelvis with intravenous contrast TATTOO IDENTIFIER-C Pilo Armas TATTOO IDENTIFIER Work Phone: Start: 02-07-2023 CT of lumbar spine TATTOO IDENTIFIER-C Pilo Armas TATTOO IDENTIFIER Work Phone: Start: 02-07-2023 CT of pelvis without contrast TATTOO IDENTIFIER-C Yesenia Armas TATTOO IDENTIFIER Work Phone: Start: 02-01-2023 X-ray of both feet TATTOO IDENTIFIER-C Pilo Armas TATTOO IDENTIFIER Work Phone: Start: 02-01-2023 Radiography of ankle TATTOO IDENTIFIER-C Pilo Armas TATTOO IDENTIFIER Work Phone: Start: 01-17-2023 Esophagogastroduodenoscopy TATTOO IDENTIFIER-C Pilo Armas TATTOO IDENTIFIER Work Phone: Start: 12-07-2022 Pelvic echography TATTOO IDENTIFIER-C Pilo Armas TATTOO IDENTIFIER Work Phone: Start: 10-15-2022 Plain x-ray of wrist TATTOO IDENTIFIER-C Pilo Chanda TATTOO IDENTIFIER Work Phone: Start: 07-16-2022 Radex spine lumbosacral 2/3 views Gwen RODRIGUEZ-C Work Phone: Start: 06-12-2021 Radex shoulder complete minimum 2 views Anil Francois MD Work Phone: Start: 07-04-2018 End: 04-14-2019 H/O: section Previous delivery affecting , antepartum X[facility] Work Phone: H/O: section History of C-sectio n Comment on above: H/O: section History of delivery, currently No Primary Care Physician Comment on above: x2, Desires H/O: section Hx of cesa rean section No Primary Care Physician Comment on above: Pt wants to Pt wants to if spont labor H/O: section Hx of cesa rean section Dr. Rose Marie Morales MD H/O: section Hx of cesa rean section Renetta BRADSHAW H/O: section Hx of cesa rean section Renetta BRADSHAW H/O: section Hx of cesa rean section Dr. Chey Dupree DO H/O: section Hx of cesa rean section Dr. Chey Dupree DO H/O: section Hx of cesa rean section Parvin Curry TATTOO IDENTIFIER-C H/O: section Hx of cesa rean section Dr. Rose Marie Morales MD H/O: section Hx of cesa rean section Renetta Nielsen CNM H/O: section Hx of cesa rean section Dr. Chey Dupree DO H/O: section Hx of cesa rean section Dr. Rose Marie Morales MD H/O: section Hx of cesa rean section Renetta BRADSHAW H/O: section Hx of cesa rean section Dr. Rose Marie Morales MD History of tonsillectomy History of tonsillectomy Tonsillectomy ALEXANDRE May WATER RESOURCE CONSULTANT-DASHBOARD DEVELOPER Plan of Treatment Date Care Activity Detail Author Start: 12-24-2028 Urine microalbumin profile [facility] Start: 03-15-2025 Patient discharge [facility] Start: 03-13-2025 [facility] Start: 03-13-2025 Application of abdominal corset [facility] Start: 03-12-2025 End: 03-12-2025 [facility] Start: 03-12-2025 End: 03-12-2025 [facility] Start: 03-12-2025 End: 03-12-2025 Notification of physician [facility] Start: 03-12-2025 Ambulation therapy management [facility] Start: 03-12-2025 Application of device [facility] Start: 03-12-2025 End: 03-12-2025 Application of intermittent pneumatic compression device [facility] Start: 03-12-2025 Assessment of risk of venous thromboembolism [facility] Start: 03-12-2025 Catheterization of vein [facility] Start: 03-12-2025 End: 03-12-2025 Continuous pulse oximetry [facility] Start: 03-12-2025 Deep breathing and coughing exercises [facility] Start: 03-12-2025 Exercises [facility] Start: 03-12-2025 Measuring intake and output [facility] Start: 03-12-2025 End: 03-12-2025 Oxygen therapy [facility] Start: 03-12-2025 Procedure discontinued [facility] Start: 03-12-2025 Provision of activity privileges [facility] Start: 03-12-2025 Skin care [facility] Start: 03-12-2025 Vital signs measurements [facility] Start: 03-12-2025 Wound care [facility] Start: 03-12-2025 Application of abdominal corset [facility] Start: 03-12-2025 [facility] Start: 03-12-2025 Leukocyte reduced red blood cells [facility] Start: 03-12-2025 Admission procedure [facility] Start: 03-12-2025 Consultation [facility] Start: 03-03-2025 Nonstress test [facility] Start: 03-03-2025 Obstetric monitoring [facility] Start: 03-03-2025 Vital signs measurements [facility] Start: 03-03-2025 [facility] Start: 03-03-2025 Patient discharge [facility] Start: 03-01-2025 RSV Vaccine (1 - Risk 1-dose series) RSV Vaccine (1 - Risk 1-dose series) [facility] Start: 02-26-2025 CBC W Auto Differential panel - Blood [facility] Start: 02-26-2025 Comprehensive metabolic 2000 panel - Serum or Plasma [facility] Start: 02-26-2025 Protein/Creatinine [Ratio] in Urine [facility] Start: 02-19-2025 CBC W Auto Differential panel - Blood [facility] Start: 02-19-2025 Comprehensive metabolic 2000 panel - Serum or Plasma [facility] Start: 02-19-2025 Procedure [facility] Start: 01-21-2025 Iv infusion therapy prophylaxis/dx ea hour [facility] Start: 01-21-2025 Iv infusion therapy/prophylaxis /dx 1st to 1 hr [facility] Start: 01-11-2025 End: 01-11-2025 [facility] Start: 01-11-2025 Nonstress test [facility] Start: 01-11-2025 Obstetric monitoring [facility] Start: 01-11-2025 Vital signs measurements [facility] Start: 01-11-2025 Bacteria identified in Urine by Culture Urine Culture [facility] Start: 01-11-2025 Patient discharge [facility] Start: 10-07-2024 Iv infusion therapy prophylaxis/dx ea hour THER/PROPH/DIAG IV INF [facility] Start: 10-07-2024 Iv infusion therapy/prophylaxis /dx 1st to 1 hr THER/PROPH/DIAG IV INF INIT [facility] Start: 10-01-2024 Iv infusion therapy prophylaxis/dx ea hour THER/PROPH/DIAG IV INF [facility] Start: 10-01-2024 Iv infusion therapy/prophylaxis /dx 1st to 1 hr THER/PROPH/DIAG IV INF INIT [facility] Start: 09-08-2024 End: 09-08-2024 Patient encounter procedure 09/08/2024 8:00 AM EDT Routine Office Visit OB/Gynecology [address] [place] [address] Michelle Lundberg APRN.CNM [address] [place] [address] Positive test OB/Gynecology Comment on above: Positive test Start: 08-10-2024 End: 08-10-2024 Patient encounter procedure 08/10/2024 8:45 AM EST Initial Office Visit OB/Gynecology [address] [place] [address] Michelle Lundberg APRN.CNM [address] [place] [address] Positive test OB/Gynecology Comment on above: Positive test Start: 07-31-2024 End: 07-31-2024 ambulatory 07/31/2024 8:30 AM EST Results Only [facility] [address] [address] [facility] Start: 07-30-2024 [facility] Start: 07-30-2024 Gonadotropin chorionic qualitative CHORIONIC GONADOTROPIN ASSAY [facility] Start: 07-29-2024 End: 07-29-2024 ambulatory 07/29/2024 7:00 AM EST [facility] OB/Gynecology [address] [place] [address] Guy Hernandez APRN.DASHBOARD DEVELOPER [address] [place] [address] Discuss early concerns OB/Gynecology Comment on above: Discuss early concerns Start: 03-01-2024 Covid-19 Vaccine () Covid-19 Vaccine () [facility] Start: 03-01-2024 Influenza vaccination Influenza Vaccine (#1) [facility] Start: 10-04-2023 Patient referral [facility] Work Phone: Start: 08-19-2023 [facility] Start: 07-16-2023 [facility] Start: 04-30-2023 Digital breast tomosynthesis bilateral BREAST TOMOSYNTHESIS BI [facility] Start: 04-29-2023 [facility] Start: 03-01-2023 Influenza vaccination Influenza Vaccine (#1) [facility] Start: 01-17-2023 Egd transoral biopsy single/multiple EGD BIOPSY SINGLE/MULTIPLE [facility] Start: 01-17-2023 Patient discharge [facility] Start: 12-26-2022 [facility] Start: 11-15-2022 Procedure [facility] Start: 10-29-2022 Liquid based cervical cytology screening [facility] Start: 04-14-2022 PAP TESTING PAP TESTING [facility] Start: 04-14-2022 Screening for malignant neoplasm of cervix [facility] Start: 03-01-2022 Influenza vaccination INFLUENZA (#1) [facility] Start: 11-07-2021 ANNUAL PCP TEAM CHRONIC DISEASE VISIT ANNUAL PCP TEAM CHRONIC DISEASE VISIT [facility] Start: 2012 SPIROMETRY SPIROMETRY [facility] Start: 2000 PNEUMOCOCCAL (1 - PCV) PNEUMOCOCCAL (1 - PCV) [facility] Start: 10-22-1999 COVID-19 VACCINE (#1) COVID-19 VACCINE (#1) [facility] Start: 04-22-1995 COVID-19 VACCINE (#1) COVID-19 VACCINE (#1) [facility] Start: 04-22-1995 HEPATITIS B (4 of 4 - 4-dose series) HEPATITIS B (4 of 4 - 4-dose series) [facility] Start: 04-22-1995 Hepatitis B Vaccine (4 of 4 - 4-dose series) Hepatitis B Vaccine (4 of 4 - 4-dose series) [facility] Alanine aminotransfe rase [Enzymatic activity/volume] in Serum or Plasma [facility] Alanine aminotransfe rase [Enzymatic activity/volume] in Serum or Plasma [facility] Albumin [Mass/volume ] in Serum or Plasma [facility] Albumin [Mass/volume ] in Serum or Plasma [facility] Alkaline phosphatase [Enzymatic activity/volume] in Serum or Plasma [facility] Alkaline phosphatase [Enzymatic activity/volume] in Serum or Plasma [facility] Anion gap in Serum or Plasma [facility] Anion gap in Serum or Plasma [facility] Bacteria identified in Urine by Culture BACTERIAL CULTURE, URINE Microbiology Routine Urinary frequency Ordered: 07/27/2024 [facility] Work Phone: Comment on above: Ordered: 07/27/2024 Bilirubin, total measurement [facility] Bilirubin, total measurement [facility] BUN/Creatinine ratio [facility] BUN/Creatinine ratio [facility] Calcium [Mass/volume ] in Serum or Plasma [facility] Calcium [Mass/volume ] in Serum or Plasma [facility] Carbon dioxide, tota l [Moles/volume] in Central venous blood [facility] Carbon dioxide, tota l [Moles/volume] in Central venous blood [facility] CBC W Auto Different ial panel - Blood [facility] CBC W Auto Different ial panel - Blood [facility] CBC W Auto Different ial panel - Blood [facility] Celiac disease screen [facility] End: 08-10-2024 Choriogonadotropin.beta subunit [Units/volume] in Serum or Plasma [facility] Lab Routine Positive test History of miscarriage 2x per week for 4 Occurrences starting 07/29/2024 until 08/10/2024 [facility] Work Phone: Comment on above: 2x per week for 4 Occurrences starting 0 07/29/2024 until 08/10/2024 Choriogonadotropin.b eta subunit [Units/volume] in Serum or Plasma [facility] Lab Routine Positive test History of miscarriage 07/29/2024 8:28 AM EST [facility] Comprehensive metabo lic 2000 panel - Serum or Plasma [facility] Creatinine [Mass/vol ume] in Serum or Plasma [facility] Creatinine [Mass/vol ume] in Serum or Plasma [facility] Creatinine [Mass/vol ume] in Urine collected for unspecified duration [facility] Dehydroepiandrostero ne sulfate (DHEA-S) [Mass/volume] in Serum or Plasma [facility] Drugs identified in Urine by Screen method [facility] Drugs identified in Urine by Screen method [facility] Erythrocyte mean cor puscular volume determination [facility] Erythrocyte mean cor puscular volume determination [facility] Ferritin [Mass/volum e] in Serum or Plasma [facility] Ferritin [Mass/volum e] in Serum or Plasma [facility] anatomy study [facility] Biophysical pr ofile panel US [facility] Glucose [Mass/volume ] in Serum or Plasma [facility] Glucose [Mass/volume ] in Serum or Plasma [facility] Hematocrit [Volume F raction] of Blood [facility] Hematocrit [Volume F raction] of Blood [facility] Hemoglobin [Mass/vol ume] in Blood [facility] Hemoglobin [Mass/vol ume] in Blood [facility] Hemoglobin A1c/Hemoglobin.total in Blood [facility] Hepatitis B surface antigen measurement [facility] Hepatitis C antibody measurement [facility] HIV 1+2 Ab+HIV1 p24 Ag [Presence] in Serum or Plasma by Immunoassay [facility] Iron [Mass/mass] in Unspecified specimen [facility] Iron and Iron bindin g capacity panel - Serum or Plasma [facility] Iron saturation [Mas s Fraction] in Serum or Plasma [facility] Leukocytes [#/volume] in Blood [facility] Leukocytes [#/volume] in Blood [facility] Mean corpuscular hem oglobin concentration determination [facility] Mean corpuscular hem oglobin concentration determination [facility] Mean corpuscular hem oglobin determination [facility] Mean corpuscular hem oglobin determination [facility] Measurement of gluco se 2 hours after glucose challenge for glucose tolerance test [facility] Measurement of renal function [facility] Measurement of renal function [facility] MR Lumbar spine [facility] Neutrophil count [facility] Neutrophil count [facility] Neutrophil percent differential count [facility] Neutrophil percent differential count [facility] Path report.final Dx Spec Wo [facility] Patient Education [facility] Work Phone: Patient referral [facility] Work Phone: Platelets [#/volume] in Blood [facility] Platelets [#/volume] in Blood [facility] Potassium measurement [facility] Potassium measurement [facility] Procedure [facility] Prolactin [Mass/volu me] in Serum or Plasma [facility] Protein [Mass/volume] in Urine [facility] Protein/Creatinine [ Mass Ratio] in Urine [facility] Red blood cell count [facility] Red blood cell count [facility] Red cell distributio n width determination [facility] Red cell distributio n width determination [facility] Rubella IgG measurement [facility] Serologic test for syphilis [facility] Serum chloride measurement [facility] Serum chloride measurement [facility] Sodium measurement [facility] Sodium measurement [facility] Streptococcus agalac tiae [Presence] in Unspecified specimen by Organism specific culture [facility] Testosterone Free [Mass/volume] in Serum or Plasma [facility] Thyroid stimulating hormone measurement [facility] Total iron binding c apacity measurement [facility] Total protein measurement [facility] Total protein measurement [facility] Treponema sp Ab [Pre sence] in Serum [facility] Ultrasound scan for growth [facility] Urea nitrogen [Mass/ volume] in Serum or Plasma [facility] Urea nitrogen [Mass/ volume] in Serum or Plasma [facility] Urine culture [facility] Urine test visual color cmprsn meths HCG QUAL UR B/O Lab Routine Irregular menstrual cycle Ordered: 11/29/2021 [facility] Work Phone: Comment on above: Ordered: 11/29/2021 [facility] US [facility] US [facility]vis transvaginal [facility] US Pelvis transvaginal [facility] Vitamin B12 measurement [facility] Immunizations Immunization Date Immunization Notes Care Provider Fa [facility] 09-07-2021 influenza, injectabl e, quadrivalent, preservative free TATTOO IDENTIFIER-C Pilo Armas NP Work Phone: [facility] 09-07-2021 influenza, seasonal, injectable [facility] 09-07-2021 influenza virus vacc ine, unspecified formulation Gwen Kaur PA-C Work Phone: [facility] 12-24-2018 diphtheria, tetanus toxoids and acellular pertussis vaccine Michelle Farah W[employer] RESOURCE CONSULTANT.[facility] Work Phone: [facility] Work Phone: 12-24-2018 Diptheria,Tetanus,Pe rtus sis Vaccine [facility] 12-24-2018 tetanus toxoid, redu danis diphtheria toxoid, and acellular pertussis vaccine, adsorbed Michelle Farah WATER RESOURCE CONSULTANT.[facility] Work Phone: [facility] Work Phone: 08-09-2017 tetanus toxoid, redu danis diphtheria toxoid, and acellular pertussis vaccine, adsorbed Michelle Farah WATER RESOURCE CONSULTANT.[facility] Work Phone: [facility] Work Phone: 08-31-2015 tuberculin skin test ; purified protein derivative solution, intradermal Xr [place] Work Phone: [facility] 03-26-2011 hepatitis A vaccine, pediatric/adolescent dosage, 2 dose schedule Michelle Farah WATER RESOURCE CONSULTANT.[facility] Work Phone: [facility] Work Phone: 09-08-2010 hepatitis A vaccine, pediatric/adolescent dosage, 2 dose schedule Michelle Farah WATER RESOURCE CONSULTANT.[facility] Work Phone: [facility] Work Phone: 09-08-2010 meningococcal polysaccharide (groups A, C, Y and W-135) diphtheria toxoid conjugate vaccine (MCV4P) Michelle Farah WATER RESOURCE CONSULTANT.[facility] Work Phone: [facility] Work Phone: 09-08-2010 tetanus toxoid, redu danis diphtheria toxoid, and acellular pertussis vaccine, adsorbed Michelle Farha WATER RESOURCE CONSULTANT.[facility] Work Phone: [facility] Work Phone: 05-07-2008 human papilloma viru s vaccine, quadrivalent Michelle Farah WATER RESOURCE CONSULTANT.[facility] Work Phone: [facility] Work Phone: 10-14-2007 human papilloma viru s vaccine, quadrivalent Michelle Farah WATER RESOURCE CONSULTANT.[facility] Work Phone: [facility] Work Phone: 10-11-2006 human papilloma viru s vaccine, quadrivalent Michelle Farah WATER RESOURCE CONSULTANT.[facility] Work Phone: [facility] Work Phone: 03-29-1999 diphtheria, tetanus toxoids and acellular pertussis vaccine Michelle Farah WATER RESOURCE CONSULTANT.[facility] Work Phone: [facility] Work Phone: 03-29-1999 haemophilus influenz ae type b vaccine, PRP-T conjugate Michelle Sofi WATER RESOURCE CONSULTANT.[facility] Work Phone: [facility] Work Phone: 03-29-1999 measles, mumps and rubella virus vaccine Michelle Sofi WATER RESOURCE CONSULTANT.[facility] Work Phone: [facility] Work Phone: 03-29-1999 poliovirus vaccine, inactivated Michelle Sofi WATER RESOURCE CONSULTANT.[facility] Work Phone: [facility] Work Phone: 08-28-1995 DTaP-Haemophilus influenzae type b conjugate vaccine Michelle Sofi WATER RESOURCE CONSULTANT.[facility] Work Phone: [facility] Work Phone: 03-15-1995 DTaP-Haemophilus influenzae type b conjugate vaccine Michelle Sofi WATER RESOURCE CONSULTANT.[facility] Work Phone: [facility] Work Phone: 03-15-1995 hepatitis B vaccine, pediatric or pediatric/adolescent dosage Michelle Sofi WATER RESOURCE CONSULTANT.[facility] Work Phone: [facility] Work Phone: 03-15-1995 trivalent poliovirus vaccine, live, oral Michelle Sofi WATER RESOURCE CONSULTANT.[facility] Work Phone: [facility] Work Phone: 03-15-1995 hepatitis B vaccine, unspecified formulation Gwen Kaur PA-C Work Phone: [facility] 1994 DTaP-Haemophilus influenzae type b conjugate vaccine Michelle Farah WATER RESOURCE CONSULTANT.[employer] Work Phone: [facility] Work Phone: 1994 hepatitis B vaccine, pediatric or pediatric/adolescent dosage Michelle Farah WATER RESOURCE CONSULTANT.[employer] DEVEL[employer] Work Phone: [facility] Work Phone: 1994 trivalent poliovirus vaccine, live, oral Michelle Farah WATER RESOURCE CONSULTANT.[employer]BO[employer] DEVELOPER Work Phone: [facility] Work Phone: 1994 hepatitis B vaccine, pediatric or pediatric/adolescent dosage Michelle Farah WATER RESOURCE CONSULTANT.[employer]ASHBO[employer] DEVELOPER Work Phone: [facility] Work Phone: Payers Date Payer Category Payer Private Health Insurance HUMANA HUMANA MEDICAID [facility] [id number] 2024-Present [address] [address] [place] [address] Medicaid [id number] 2024 Self-pay [id number] 2023 Unknown [id number] 2019 Medicaid [employer] MEDICAID [id number] 2019-Present [phone] [address] [place] [address] Medicaid [id number] 2019 Medicaid [id number]. [id number] 2017 Unknown [employer] [id number] 2017 Unknown [id number] 1994 Unknown [id number] 2.16.840.1.351567.3.579.2. 627 1994 Unknown [id number] 2.16.840.1.185499.3.579.2. 627 1994 Unknown [id number] 2.16.840.1.032418.3.579.2. 627 1994 Unknown [id number] 2.16.840.1.623235.3.579.2. 627 1994 Unknown [id number] 2.16.840.1.305187.3.579.2. 479 Unknown Unknown [employer] [facility] [id number] Unknown [id number] 2.16.840.1.509735.3.579.2. 462 Unknown [id number] 2.16.840.1.112508.3.579.2. 462 Unknown [id number] 2.16.840.1.215922.3.579.2. 462 Unknown [id number] 2.16.840.1.207506.3.579.2. 462 Unknown [id number] 2.16.840.1.248161.3.579.2. 462 Unknown [id number] 2.16.840.1.466009.3.579.2. 462 Unknown [id number] 2.16.840.1.946541.3.579.2. 462 Unknown [id number] 2.16.840.1.291681.3.579.2. 462 Unknown [id number] 2.16.840.1.305332.3.579.2. 462 Unknown [id number] 2.16.840.1.453444.3.579.2. 462 Unknown [id number] 2.16.840.1.112720.3.579.2. 462 Unknown [id number] 2.16.840.1.266548.3.579.2. 462 Unknown [id number] 2.16.840.1.020818.3.579.2. 462 Unknown [id number] 2.16.840.1.593928.3.579.2. 462 Unknown [id number] 2..840.1.209135.3.579.2. 462 Unknown [id number] 2.840.1.792002.3.579.2. 462 Unknown [id number] 2.840.1.934096.3.579.2. 462 Unknown [id number] 2.840.1.313849.3.579.2. 462 Unknown [id number] 2.840.1.351052.3.579.2. 462 Unknown [id number] 2.840.1.223761.3.579.2. 462 Unknown [id number] 2.840.1.851772.3.579.2. 462 Unknown [id number] 2.840.1.450293.3.579.2. 462 Unknown [id number] 2.840.1.234209.3.579.2. 462 Unknown [id number] 2.840.1.955355.3.579.2. 462 Unknown [id number] 2.840.1.205200.3.579.2. 462 Unknown [id number] 2.16.840.1.737348.3.579.2. 462 Unknown [id number] 2.16840.1.573972.3.579.2. 462 Unknown [id number] 2.840.1.365570.3.579.2. 462 Unknown [id number] 2.16.840.1.634160.3.579.2. 462 Unknown [id number] 2.16840.1.675320.3.579.2. 462 Unknown [id number] 2.16.840.1.534093.3.579.2. 462 Unknown [id number] 2.16840.1.001810.3.579.2. 462 Unknown [id number] 2.16840.1.511881.3.579.2. 462 Unknown [id number] 2.840.1.707611.3.579.2. 462 Unknown [id number] 2.840.1.737220.3.579.2. 462 Unknown [id number] 2.840.1.771348.3.579.2. 462 Unknown [id number] 2.840.1.684602.3.579.2. 462 Unknown [id number] 2.840.1.955115.3.579.2. 462 Unknown [id number] 2.840.1.122208.3.579.2. 462 Unknown [id number] 2.840.1.484993.3.579.2. 462 Unknown [id number] 2.840.1.830159.3.579.2. 462 Unknown [id number] 2.840.1.227523.3.579.2. 462 Unknown [id number] 2.840.1.674305.3.579.2. 462 Unknown [id number] 2.840.1.232431.3.579.2. 462 Unknown [id number] 2.840.1.128829.3.579.2. 462 Unknown [id number] 2.840.1.564797.3.579.2. 462 Unknown [id number] 2.16840.1.968747.3.579.2. 462 Unknown [id number] 2.16.840.1.534369.3.579.2. 462 Unknown [id number] 2.16.840.1.253590.3.579.2. 462 Social History Date Type Detail Facility Start: 12-11-2013 End: 05-03-2022 Tobacco smoking status NHIS Never smoked tobacco [facility] Start: 12-11-2013 End: 05-03-2022 Tobacco use and exposure Smokeless tobacco non-user [facility] Start: 11-09-2021 End: 09-15-2024 Alcohol intake Current non-drinker of alcohol (finding) [facility] Start: 1995 Sex Assigned At Not on file [facility] Start: 10-30-2021 End: 05-03-2022 Exposure to SARS-CoV-2 (event) Not sure [facility] Sex Assigned At Sex [facility] Start: 07-16-2022 End: 10-18-2023 Tobacco smoking status NHIS Unknown if ever smoked [facility] Start: 11-10-2018 None [facility] Start: 06-17-2020 With Family [facility] Start: 08-08-2021 Non-smoker [facility] Start: 1995 Sex Assigned At Female [facility] Start: 09-02-2023 End: 07-29-2024 History of Social function [facility] Start: 09-02-2023 End: 07-29-2024 Tobacco use panel [facility] Adult Depression Screening Assessment 5 [facility] Start: 07-07-2024 [facility] Start: 08-11-2024 [facility] Start: 09-15-2024 End: 10-08-2024 Sex Female (finding) [facility] Start: 03-12-2025 [facility] Start: 03-12-2025 - [facility] NEGATED: Highlighted row [facility] Medical Equipment Procedure Code Equipment Code Equipment Origin al Text Equipment Identifier Dates Blood Sugar Diagnostic (Blood Glucose Test) strip Start: 01-04-2025 Lancets misc Start: 01-04-2025 Blood Sugar Diagnostic (Blood Glucose Test) strip Start: 01-04-2025 Lancets misc Start: 01-04-2025 Blood Sugar Diagnostic (Blood Glucose Test) strip Start: 01-04-2025 Lancets misc Start: 01-04-2025 Blood Sugar Diagnostic (Blood Glucose Test) strip Start: 01-04-2025 Lancets misc Start: 01-04-2025 Blood Sugar Diagnostic (Blood Glucose Test) strip Start: 01-04-2025 Lancets misc Start: 01-04-2025 Blood Sugar Diagnostic (Blood Glucose Test) strip Start: 01-04-2025 Lancets misc Start: 01-04-2025 Blood Sugar Diagnostic (Blood Glucose Test) strip Start: 01-04-2025 Lancets misc Start: 01-04-2025 Blood Sugar Diagnostic (Blood Glucose Test) strip Start: 01-04-2025 Lancets misc Start: 01-04-2025 Blood Sugar Diagnostic (Blood Glucose Test) strip Start: 01-04-2025 [facility]ets misc Start: 01-04-2025 Blood Sugar Diagnostic (Blood Glucose Test) strip Start: 01-04-2025 [facility]ets misc Start: 01-04-2025 Blood Sugar Diagnostic (Blood Glucose Test) strip Start: 01-04-2025 Lancets misc Start: 01-04-2025 Blood Sugar Diagnostic (Blood Glucose Test) strip Start: 01-04-2025 [facility]ets misc Start: 01-04-2025 Blood Sugar Diagnostic (Blood Glucose Test) strip Start: 01-04-2025 [facility] misc Start: 01-04-2025 Blood Sugar Diagnostic (Blood Glucose Test) strip Start: 01-04-2025 [facility] misc Start: 01-04-2025 Blood Sugar Diagnostic (Blood Glucose Test) strip Start: 01-04-2025 [facility] misc Start: 01-04-2025 Blood Sugar Diagnostic (Blood Glucose Test) strip Start: 01-04-2025 [facility] misc Start: 01-04-2025 Blood Sugar Diagnostic (Blood Glucose Test) strip Start: 01-04-2025 [facility] misc Start: 01-04-2025 Goals Date Patient Goal Desired Activity /State Functional Status Date Assessment Result Facility 11-12-2023 Functional Status Independent [place] Erasmo patel [facility] 11-12-2023 Functional Status ID band on, Call device within reach, Bed in low position, Wheels locked, Upper/Half-Length side-rails up, Safety level maintained [facility] 09-15-2014 Are you deaf, or do you have serious difficulty hearing No 09/15/2014 10:50 AM EDT Leola Sanchez LPN No [facility] 09-15-2014 Are you blind, or do you have serious difficulty seeing, even when wearing glasses No 09/15/2014 10:50 AM EDT Leola Sanchez LPN [facility] 09-15-2014 Do you have serious difficulty walking or climbing stairs No 09/15/2014 10:50 AM EDT Leola Sanchez LPN No [facility] 09-15-2014 Do you have difficul ty dressing or bathing No 09/15/2014 10:50 AM EDT Leola Sanchez LPN [facility] 09-15-2014 Because of a physica l, mental, or emotional condition, do you have difficulty doing errands alone such as visiting a physician's office or shopping No 09/15/2014 10:50 AM EDT Leola Sanchez LPN No [facility] Mental Status Date Assessment Result Facility 03-13-2025 Cognitive function Awake;Alert;Appropriat e [facility] Work Phone: 01-21-2025 Cognitive function Awake;Alert;A ppropriate;Fo llows Commands [facility] Work Phone: 10-07-2024 Cognitive function Awake;Alert;A ppropriate;Fo llows Commands [facility] Work Phone: 10-01-2024 Cognitive function Awake;Alert;A ppropriate;Fo [facility] Commands [facility] Work Phone: 11-12-2023 Mental Status Orientation Oriented x 4 [facility] 11-12-2023 Mental Status [facility] 01-17-2023 Cognitive function Voice/Name [facility] Work Phone: 09-15-2014 Because of a physica l, mental, or emotional condition, do you have serious difficulty concentrating, remembering, or making decisions No 09/15/2014 10:50 AM EDT Leola Sanchez LPN No [facility] Clinical Notes 07-04-2018 to 03-15-2025 Note Date & Type Note Facility 03-15-2025 Progress note Note Date/Time March 15, 2025 11:25am [facility] Medical Records Department [address] [place] [address] Progress Note - OBGYN 03/15/25 1124 MR#: [id number] Acct: [id number] Name: PARVIN ALLEN Rep #:[id number] : 1995 29 From: Rose Marie padgett MD PCP: Care Physician,No Primary Status :ADM IN Location: [place] [address] Subjective Subjective Patient doing well without complaints. Tolerating PO. Ambulating and voiding without difficulty. feeding well. Denies chest pain, shortness of breath,calf pain/swelling, fevers, chills, lightheadedness. Objective Data Objective Data Vital Signs: Vital Signs Temp Pulse Resp BP Pulse Ox O2 Del Method 98.2 F 77 16 140/79 H 97 Room Air 03/15/25 07:55 03/15/25 07:55 03/15/25 07:55 03/15/25 10:05 03/15/25 07:55 03/15/25 07:55 Oxygen Delivery Method Room Air Weight: 263 lb Body Mass Index (BMI) 48.1 Intake & Output: Intake and Output for Last 24 Hours 03/13/25 03/14/25 03/15/25 23:59 23:59 23:59 Intake Total 3500 / 3500 500 / 500 Output Total 950 / 1350 1100 / 1100 Balance 2550 / 2150 -600 / -600 Lab / Micro Data 03/15/25 03:10 03/15/25 03:10 Labs: Laboratory Results - last 24 hr 03/15/25 03:10: WBC 8.1, RBC 3.24 L, Hgb 7.3 L, Hct 23.4 L, MCV 72.2 L, MCH 22.5L, MCHC 31.2 L, RDW Std Deviation 47.5 H, RDW Coeff of Kel 18.6 H, Plt Count 251, MPV 9.7, Immature Gran % (Auto) 3.100 H, Neut % (Auto) 75.6 H, Lymph % (Auto) 12.7 L, Bremer % (Auto) 5.8, Eos % (Auto) 2.6, Baso % (Auto) 0.2, Absolute Neuts (auto) 6.1, Absolute Lymphs (auto) 1.02, Nucleated RBC % 0, Sodium 137, Potassium 4.0, Chloride 106, Carbon Dioxide 19.8 L, Anion Gap 12, BUN 12, Creatinine 0.71, Estim Creat Clear Calc 142.26, Est GFR (MDRD) Non-Af 117, BUN/Creatinine Ratio 16.4, Glucose 109 H, Calcium 8.0, Total Bilirubin < 0.15, AST 18, ALT 13, Alkaline Phosphatase 114 H, Total Protein 5.4 L, Albumin 2.5 L, Globulin 2.9, Albumin/Globulin Ratio 0.9 ROS Constitutional Constitutional: Reports systems reviewed and no addt'l complaints, except as documented Cardiovascular Cardiovascular: Reports systems reviewed and no addt'l complaints, except as documented Respiratory/Chest Respiratory/Chest: Reports systems reviewed and no addt'l complaints, except as documented Gastrointestinal Gastrointestinal: Reports systems reviewed and no addt'l complaints, except as documented Physical Exam Const alert, oriented x3 and no apparent distress HEENT Head and Scalp: atraumatic Resp normal respiratory effort GI soft to palpation and non-tender Inspection: incision intact, healing well and drainage (none) Bimanual Exam - Vag & Uterus: uterus non-tender Uterus Palpation: uterus fundus firm (below Umbilicus) Assessment & Plan (1) Gestational hypertension: COMMENT: delivered 37. labetalol started 100 TID PLAN: Plan s/p LTCS PPD # 2 1. routine post care 2. breast feeding- support given 3. rh positive 4. rubella immune adjusting bp meds added procardia consult anesthesia 03/15/25 1125 <Electronically signed by Rose Marie Morales MD> Cosigner Signature (if applicable): CC: ~ Signed [facility] Work Phone: [phone]) 371-187609-14-2025 Progress note Author Rose Marie Morales [facility] Note Date/Time March 14, 2025 11:24am [facility] Medical Records Department [address] [place] [address] Progress Note - OBGYN 03/14/255 MR#: [id number] Acct: [id number] Name: PARVIN ALLEN Rep #:[id number] : 1995 29 From: Rose Marie padgett MD PCP: Care Physician,No Primary Status :ADM IN [facility] Subjective Subjective Patient doing well without complaints. Tolerating PO. Ambulating and voiding without difficulty. infant feeding well. Denies chest pain, shortness of breath,calf pain/swelling, fevers, chills, lightheadedness. Objective Data Objective Data Vital Signs: Vital Signs Temp Pulse Resp BP Pulse Ox O2 Del Method 97.9 F 78 16 147/82 H 97 Room Air 03/14/25 07:50 03/14/25 07:50 03/14/25 07:50 03/14/25 07:50 03/14/25 07:50 03/14/25 07:50 Oxygen Delivery Method Room Air Weight: 263 lb Body Mass Index (BMI) 48.1 Intake & Output: Intake and Output for Last 24 Hours 03/12/25 03/13/25 03/14/25 23:59 23:59 23:59 Intake Total 3249 / 3249 3500 / 3500 500 / 500 Output Total 1150 / 1200 950 / 1350 1100 / 1100 Balance 9 / 2049 2550 / 2150 -600 / -600 Lab / Micro Data 03/13/25 12:30 03/12/25 12:40 Labs: Laboratory Results - last 24 hr 03/13/25 12:30: WBC 9.3, RBC 3.36 L, Hgb 7.6 L, Hct 24.1 L, MCV 71.7 L, MCH 22.6L, MCHC 31.5 L, RDW Std Deviation 45.2 H, RDW Coeff of Kel 17.8 H, Plt Count 198, MPV 10.7, Immature Gran % (Auto) 1.300 H, Neut % (Auto) 76.8 H, Lymph % (Auto) 12.9 L, Bremer % (Auto) 8.2, Eos % (Auto) 0.5, Baso % (Auto) 0.3, Absolute Neuts (auto) 7.1, Absolute Lymphs (auto) 1.19, Nucleated RBC % 0.2 ROS Constitutional Constitutional: Reports systems reviewed and no addt'l complaints, except as documented Cardiovascular Cardiovascular: Reports systems reviewed and no addt'l complaints, except as documented Respiratory/Chest Respiratory/Chest: Reports systems reviewed and no addt'l complaints, except as documented Gastrointestinal Gastrointestinal: Reports systems reviewed and no addt'l complaints, except as documented Physical Exam Const alert, oriented x3 and no apparent distress HEENT Head and Scalp: atraumatic Resp normal respiratory effort GI soft to palpation and non-tender Inspection: incision intact, healing well and drainage (none) Bimanual Exam - Vag & Uterus: uterus non-tender Uterus Palpation: uterus fundus firm (below Umbilicus) Assessment & Plan (1) Gestational hypertension: COMMENT: delivered 37. labetalol started 100 TID (2) delivery delivered: COMMENT: RLTCS girl Taniya 37 ghtn diabetes 10lb 15 ounces anemia (3) Sterilization: COMMENT: title 19 01/19/25 c/section is 03/23. (4) Gestational diabetes mellitus (GDM) affecting , antepartum: COMMENT: testing QID, nutrition consult. NPH at night. 2x weekly bpps 32 weeks. growth us q 4 weeks. Growth US at 36 wk. Plans R CS at 39 wk (5) Anemia affecting : QUALIFIERS: Trimester: second trimester Qualified Code(s): O99.012 - Anemia complicating , second trimester COMMENT: Ferritin, Iron Binding studies, Venofer infusions (6) History of miscarriage, currently : COMMENT: 03/2024 missed . (7) Hx of section: COMMENT: Pt wants to if spont labor (8) Supervision of high-risk : QUALIFIERS: Trimester: second trimester Qualified Code(s): O09.92- Supervision of high risk , unspecified, second trimester COMMENT: PRR , NICOLE 03/30/25,girl tyree (named by oldest son), PC Abdirahman Vogt, Javad (9) : QUALIFIERS: Weeks of gestation: 37 weeks Qualified Code(s): Z3A.37 - 37 weeks gestation of COMMENT: NIPT low risk, FOB sister with Down Syndrome, nl anatomy (10) Marijuana use during : COMMENT: every HS, counseling provided, recommended cessation, informed ofinitial and random tox screens; Quit (11) Current smoker: COMMENT: smoking in education provided, pt considering quitting,recommended cessation Vaping daily. (12) Hx of pre-eclampsia in prior , currently : COMMENT: 1st only (13) Obesity affecting : QUALIFIERS: Trimester: second trimester Obesity type affecting : unspecified obesity Qualified Code(s): O99.212 - Obesity complicating , second trimester COMMENT: BMI 41, BIVV1J-4m weekly bpps due to diabetes (14) Anxiety: COMMENT: stopped taking buspar, encouraged counseling. (15) Iron deficiency anemia: QUALIFIERS: Iron deficiency anemia type: unspecified iron deficiency Qualified Code(s): D50.9 - Iron deficiency anemia, unspecified COMMENT: EGD 01/17/2023-esophagitis, Bean's gland hyperplasia Has not tolerated oral iron in the past IV iron during PLAN: Plan s/p LTCS PPD # 2 1. routine post care 2. breast feeding- support given 3. rh positive 4. rubella immune Diabetes?check blood sugars at 6-week visit Gestational hypertension?started on labetalol 100 3 times daily monitor throughout the day today 03/14/25 1124 <Electronically signed by Rose Marie Morales MD> Cosigner Signature (if applicable): CC: ~ Signed [facility] Work Phone: 1(979) 310-946109-13-2025 Progress note Author Rose Marie Morales [facility] Note Date/Time March 13, 2025 8:29am [facility] Medical Records Department [address] [place] [address] Progress Note - OBGYN 03/13/25 0828 MR#: [id number] Acct: [id number] Name: PARVIN ALLEN Rep #:[id number] : 1995 29 From: Rose Marie padgett MD PCP: Care Physician,No Primary Status :ADM IN [facility] Subjective Subjective Patient doing well without complaints. Tolerating PO. Ambulating and voiding without difficulty. feeding well. Denies chest pain, shortness of breath,calf pain/swelling, fevers, chills, lightheadedness. Objective Data Objective Data Vital Signs: Vital Signs Temp Pulse Resp BP Pulse Ox O2 Del Method 97.9 F 63 16 138/91 H 96 Room Air 03/13/25 03:37 03/13/25 06:09 03/13/25 06:09 03/13/25 03:37 03/13/25 06:09 03/13/25 06:09 Oxygen Delivery Method Room Air Weight: 263 lb Body Mass Index (BMI) 48.1 Intake & Output: Intake and Output for Last 24 Hours 03/11/25 03/12/25 03/13/25 23:59 23:59 23:59 Intake Total 3249 / 3249 1500 / 1500 Output Total 1150 / 1200 250 / 250 Balance 2099 / 2049 1250 / 1250 Lab / Micro Data 03/13/25 05:55 03/12/25 12:40 Labs: Laboratory Results - last 24 hr 03/12/25 12:11: Uric Acid 7.1 H, AST 23 03/12/25 12:40: WBC 6.1, RBC 3.72 L, Hgb 7.9 L, Hct 26.0 L, MCV 69.9 L, MCH 21.2L, MCHC 30.4 L, RDW Std Deviation 42.2, RDW Coeff of Kel 16.8 H, Plt Count 188, MPV 11.0, Immature Gran % (Auto) 2.000 H, Neut % (Auto) 74.6 H, Lymph % (Auto) 14.9 L, Bremer % (Auto) 6.7, Eos % (Auto) 1.3, Baso % (Auto) 0.5, Absolute Neuts (auto) 4.6, Absolute Lymphs (auto) 0.91, Nucleated RBC % 0, Creatinine 0.66 L, Estim Creat Clear Calc 153.04, Est GFR (MDRD) Non-Af 121, ALT 12, U Random TotalProtein 17.9 H, Urine Creatinine 63.80, Protein/Creatinin Ratio 281 H, Syphilis Total Ab Nonreactive, Blood Type B POSITIVE, Antibody Screen NEGATIVE, Crossmatch See Detail 03/12/25 13:45: Urine Opiates Screen Cancelled 03/12/25 13:45: Urine Opiates Screen NEGATIVE, U Buprenorphine Qual Cancelled 03/12/25 13:45: U Buprenorphine Qual NEGATIVE, Ur Oxycodone Screen Cancelled 03/12/25 13:45: Ur Oxycodone Screen NEGATIVE, Urine Methadone Screen Cancelled 03/12/25 13:45: Urine Methadone Screen NEGATIVE, Urine Fentanyl Screen Cancelled 03/12/25 13:45: Urine Fentanyl Screen NEGATIVE, Ur Barbiturates Screen Cancelled 03/12/25 13:45: Ur Barbiturates Screen NEGATIVE, Ur Phencyclidine Scrn Cancelled 03/12/25 13:45: Ur Phencyclidine Scrn NEGATIVE, Ur Amphetamines Screen Cancelled 03/12/25 13:45: Ur Amphetamines Screen NEGATIVE, U Benzodiazepines Scrn Cancelled 03/12/25 13:45: U Benzodiazepines Scrn NEGATIVE, Urine Cocaine Screen Cancelled 03/12/25 13:45: Urine Cocaine Screen NEGATIVE, U Cannabinoids Screen Cancelled 03/12/25 13:45: U Cannabinoids Screen NEGATIVE, Ur Drug Screen Comment 03/12/25 14:13: POC Glucose 81 03/12/25 18:42: POC Glucose 132 H 03/12/25 22:00: WBC 12.1 H, RBC 3.61 L, Hgb 8.1 L, Hct 26.1 L, MCV 72.3 L, MCH 22.4 L, MCHC 31.0 L, RDW Std Deviation 45.1 H, RDW Coeff of Kel 17.9 H, Plt Count 175, MPV 10.3, Immature Gran % (Auto) 1.200 H, Neut % (Auto) 91.2 H, Lymph% (Auto) 5.1 L, Bremer % (Auto) 2.2, Eos % (Auto) 0.1, Baso % (Auto) 0.2, AbsoluteNeuts (auto) 11.0 H, Absolute Lymphs (auto) 0.62 L, Nucleated RBC % 0 03/13/25 05:53: POC Glucose 89 03/13/25 05:55: WBC 10.0, RBC 3.29 L, Hgb 7.4 L, Hct 23.4 L, MCV 71.1 L, MCH 22.5 L, MCHC 31.6 L, RDW Std Deviation 44.5 H, RDW Coeff of Kel 17.6 H, Plt Count 167, MPV 10.5 ROS Constitutional Constitutional: Reports systems reviewed and no addt'l complaints, except as documented Cardiovascular Cardiovascular: Reports systems reviewed and no addt'l complaints, except as documented Respiratory/Chest Respiratory/Chest: Reports systems reviewed and no addt'l complaints, except as documented Gastrointestinal Gastrointestinal: Reports systems reviewed and no addt'l complaints, except as documented Physical Exam Const alert, oriented x3 and no apparent distress HEENT Head and Scalp: atraumatic Resp normal respiratory effort GI soft to palpation and non-tender Bimanual Exam - Vag & Uterus: uterus non-tender Uterus Palpation: uterus fundus firm (below Umbilicus) Assessment & Plan (1) delivery delivered: COMMENT: SM RLTCS girl Taniya 37 ghtn diabetes 10lb 15 ounces anemia PLAN: Plan s/p LTCS PPD # 1 1. routine post care 2. breast feeding- support given 3. rh positive 4. rubella immune diabetes htn decreased urine outptut anemia sec chronic- sp 1 unit repeat at noon 03/13/25 0829 <Electronically signed by Rose Marie Morales MD> Cosigner Signature (if applicable): CC: ~ Signed [facility] Work Phone: 1(157) 823-162709-13-2025 Discharge summary Author Rose Marie Morales [facility] Note Date/Time March 13, 2025 1:02am [facility] Medical Records Department [address] [place] [address] Instructions for Home/Discharge Instructions 03/13/25 0102 MR#: [id number] Acct: [id number] Name: PARVIN ALLEN Rep #:[id number] : 1995 29 From: Rose Marie padgett MD PCP: Care Physician,No Primary Status :ADM IN Discharge Instructions DC O2, CPAP, BIPAP needs Home O2 Discharge instructions: No Dressing / Incision Discharge Activity: May Not Drive (for 2 weeks or while taking narcotic pain medications.), May Shower and May Take a Tub Bath (in 7 days) May shower in (days): 0 May resume sexual activity in: 4-6 weeks Weight Bearing Status: Full weight bearing Lifting Restrictions: 20 pounds Dressing / Incision Call your doctor if your incision/area has: Continuous Slow Oozing, Sudden Increased Bleeding, Increased Pain/ Swelling, Increased Redness and Foul Smelling Discharge Call your doctor if you observe: Fever of 101 or Higher and Using more than 1 pad per hour (for 2 hours) Suture Line Care: Avoid Pulling/Pushing and Avoid Pinching/Bending Cleanse incision/area with: Soap & Water and Keep Dressing Clean & Dry Follow Up Care Please Follow Up With: Rose Marie Morales MD When: Call [phone] to make an appointment for an incision check in 1-2 weeks. Test Results: Test results from this visit will be discussed in further detail at your follow- up appointment, if applicable. Discharge Plan Admission Admit Date/Time: 03/12/25 11:40 Attending Provider: Rose Marie Morales Primary Care Provider: Kristi Hood Primary Discharge Orders/Prescriptions Prescriptions: No Action albuterol sulfate 90 mcg/actuation aerosol powdr breath activated 2 inh inhalation Q4-6H PRN (Reason: shortness of breath or wheezing) Qty: 1 0RF PNV no.[id number] 400 mcg-35 mg- 25 mg-5 mg tablet,chewable 1 tab PO DAILY famotidine [Pepcid] 20 mg tablet 20 mg PO BID Qty: 60 6RF Rx Instructions: take with breakfast and before bedtime. (DME) insulin syringes (disposable) 1 mL syringe See Rx Instructions .Route Qty: 100 6RF Rx Instructions: As directed Novolin N NPH U-100 Insulin 100 unit/mL suspension 22 unit subcut QHS Rx Instructions: 22 units at bedtime, if fasting blood sugar over 95 increase by 1 unit nightly until under 95 (DME) Blood Glucose Test Strip See Rx Instructions .ROUTE .MEDSUPPLY Qty: 50 8RF Rx Instructions: As directed, fasting and 2 hours post meals (DME) blood-glucose meter Misc See Rx Instructions .ROUTE .MEDSUPPLY Qty: 1 0RF Rx Instructions: As directed, fasting and 2 hours post meals. alcohol swabs [Alcohol Wipes] Pads, Medicated 1 pad topical DAILY Qty: 100 0RF (DME) lancets Misc See Rx Instructions .ROUTE .MEDSUPPLY Qty: 200 2RF Rx Instructions: As directed, fasting and 2 hours post meals Referrals / Follow Up: Care Physician,Kristi Primary [Primary Care Provider] - 03/13/25 0102<Electronically signed by Rose Marie Morales MD>Rose Marie Morales MD CC: No Primary Care Physician ~ Signed [facility] Work Phone: 1(632) 969-223309-13-2025 Procedure [facility] 03-12-2025 History and physical note Author Rose Marie Morales [facility] Note Date/Time March 12, 2025 5:49pm [facility] Medical Records Department [address] [place] [address] History & Physical Exam 03/12/25 1748 MR#: [id number] Acct: [id number] Name: PARVIN ALLEN Rep #:[id number] : 1995 29 From: Rose Marie padgett MD PCP: Care Physician,No Primary Status :ADM IN Location: [place] [address] History and Physical Date of Admission: 03/12/25 MR#: [id number] Acct: [id number] Name: PARVIN ALLEN Rep #: [id number] : 1995 Provider: Dr. 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 Is patient in pain?: Yes (back and hip pain) Allergies No Known Allergies Allergy (Verified 03/12/25 13:07) Medications ?Medication ?Instructions ?Recorded ?Confirmed ?Type albuterol sulfate 90 mcg/actuation 2 inh inhalation Q4-6H PRN 10/18/2303/01 Rx breath activated powder inhaler shortness of breath or wheezing #1 ea PNV 153-FA 400 mcg-om3 35 mg-dha 1 tab PO DAILY 08/11/24 History 25 mg-epa 5 mg-fish oil chew tablet famotidine 20 mg tablet (Pepcid) 20 mg PO BID nausea #60 tabs 12/09/24 Rx alcohol swabs (Alcohol Wipes) 1 pad topical DAILY GDM #100 ea 01/04/25 03/12/25 Rx blood sugar diagnostic (Blood #50 ea 01/04/25 03/12/25 Rx Glucose Test strips) blood-glucose meter #1 ea 01/04/25 03/12/25 Rx lancets #200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 1:00pm Supervision of high-risk acute January 06, 2025 1 :00pm ADD (attention deficit disorder) acute January 19, 2025 11:25am Anemia affecting acute January 19, 2025 11:25am Anxiety acute January 19 11:25am Current smoker acute January 19, 2025 11:25am Family history of BRCA gene positive acute January 19, 2025 11:25am Gestational diabetes mellitu s (GDM) affecting , antepartum acute January 19, 2025 11:25am History of miscarriage, currently acute January 19 11:25am History of ovarian cyst acute J [facility] 2024 11:25am Hx of section acute Ju ly 2024 11:25am Hx of pre-eclampsia in prior , currently acute Ju ly 2024 11:25am Internal derangement of left shoulder acute January 19, 2025 11:25am Iron deficiency anemia acute Ju ly 2024 11:25am Lumbar radiculopathy acute January 19, 2025 11:25am Marijuana use during acute January 19, 2025 11:25am Obesity affecting acute January 19, 2025 11:25am acute January 19 11:25am Sacroiliitis acute January 19 11:25am Sterilization acute January 19, 2025 11:25am Supervision of high-risk acute January 19, 2025 11:25am Asthma chronic January 19 11:25am ADD (attention deficit disorder) acute February 02, 2025 11:14am Anemia affecting acute February 02, 2025 11:14am Anxiety acute February 02 11:14am Current smoker acute January 11:14am Family history of BRCA gene positive acute February 02, 2025 11:14am Gestational diabetes mellitu s (GDM) affecting , antepartum acute February 02, 2025 11:14am History of miscarriage, currently acute February 02 11:14am History of ovarian cyst acute [facility] 2024 11:14am Hx of section acute [place] 2024 11:14am Hx of pre-eclampsia in prior , currently acute [place] 2024 11:14am Internal derangement of left shoulder acute February 02, 2025 11:14am Iron deficiency anemia acute [facility] 2024 11:14am Lumbar radiculopathy acute 2024 11:14am Marijuana use during acute February 02, 2025 11:14am Obesity affecting acute February 02, 2025 11:14am acute February 02 11:14am Sacroiliitis acute February 02, 2025 11:14am Sterilization acute February 02, 2025 11:14am Supervision of high-risk acute February 02, 2025 11:14am Asthma chronic February 02 11:14am ADD (attention deficit disorder) acute February 10 10:44am Anemia affecting acute February 10, 2025 10:44am Anxiety acute February 10, 025 10:44am Current smoker acute January 10:44am Family history of BRCA gene positive acute February 10 10:44am Gestational diabetes mellitu s (GDM) affecting , antepartum acute February 10 10:44am History of miscarriage, currently acute February 10, 2025 10:44am [facility] Hx of section acute [facility] 2024 10:44am Hx of pre-eclampsia in prior , currently acute [facility] 2024 10:44am Internal derangement of left shoulder acute February 10 10:44am Iron deficiency anemia acute [facility] 2024 10:44am Lumbar radiculopathy acute 2024 10:44am Marijuana use during acute February 10, 2025 10:44am Obesity affecting acute February 10, 2025 10:44am acute February 10, 025 10:44am Sacroiliitis acute February 10, 2025 10:44am Sterilization acute January 10:44am Supervision of high-risk acute February 10 10:44am Asthma chronic February 10, 025 10:44am ADD (attention deficit disorder) acute February 19 10:02am Anemia affecting acute February 19, 2025 10:02am Anxiety acute February 19, 025 10:02am Current smoker acute January 10:02am Family history of BRCA gene positive acute February 19 10:02am Gestational diabetes mellitu s (GDM) affecting , antepartum acute February 19 10:02am History of miscarriage, currently acute February 19, 2025 10:02am History of ovarian cyst acute [facility] 2024 10:02am Hx of section acute [place] 2024 10:02am Hx of pre-eclampsia in prior , currently acute [place] 2024 10:02am Internal derangement of left shoulder acute February 19 10:02am Iron deficiency anemia acute [place] 2024 10:02am Lumbar radiculopathy acute [facility] 2024 10:02am Marijuana use during acute February 19, 2025 10:02am Obesity affecting acute February 19, 2025 10:02am acute February 19, 10:02am Pruritus of in thi rd trimester acute February 19 10:02am Sacroiliitis acute February 19, 2025 10:02am Sterilization acute January 10:02am Supervision of high-risk acute February 19 10:02am Asthma chronic February 19 10:02am [facility] Work Phone: 1(329) 541-965105-14-2025 Evaluation note* Diagnosis Onset Date Resolution Status Admit Date ADD (attention deficit disorder) acute November 11, 2024 1 0:54am Anemia affecting acute November 11, 2024 10:54am Anxiety acute November 11, 2024 10:54am Current smoker acute November 11, 2024 10:54am Family history of BRCA gene positive acute November 11, 2024 1 0:54am History of miscarriage, currently acute November 11 10:54am History of ovarian cyst acute M ay 2024 10:54am Hx of section acute Ma y 2024 10:54am Hx of pre-eclampsia in prior , currently acute Ma y 2024 10:54am Internal derangement of left shoulder acute November 11, 2024 1 0:54am Iron deficiency anemia acute Ma y 2024 10:54am Lumbar radiculopathy acute November 11, 2024 10:54am Marijuana use during acute November 11, 2024 10:54am Obesity affecting acute November 11, 2024 10:54am acute November 11, 2024 10:54am Sacroiliitis acute November 11 10:54am Supervision of high-risk acute November 11, 2024 1 0:54am Asthma chronic November 11, 2024 10:54am History of gestational diabe emily mellitus (GDM) in prior , currentl inactive November 11 10:54am ADD (attention deficit disorder) acute December 09, 2024 11:01am Anemia affecting acute December 09, 2024 11:01am Anxiety acute December 09 11:01am Current smoker acute December 09, 2024 11:01am Family history of BRCA gene positive acute December 09, 2024 11:01am History of miscarriage, currently acute December 09 11:01am History of ovarian cyst acute [facility] 2024 11:01am Hx of section acute [facility] 2024 11:01am Hx of pre-eclampsia in prior , currently acute [facility] 2024 11:01am Internal derangement of left shoulder acute December 09, 2024 11:01am Iron deficiency anemia acute [facility] 2024 11:01am Lumbar radiculopathy acute December 09, 2024 11:01am Marijuana use during acute December 09, 2024 11:01am Obesity affecting acute December 09, 2024 11:01am acute December 09 11:01am Sacroiliitis acute December 09, 025 11:01am Supervision of high-risk acute December 09, 2024 11:01am Asthma chronic December 09 11:01am History of gestational diabe emily mellitus (GDM) in prior , currentl inactive December 09, 025 11:01am Anemia affecting acute January 06, 2025 1:00pm Anxiety acute January 06, 2025 1:00pm Current smoker acute January 06, 2025 1:00pm Gestational diabetes mellitu s (GDM) affecting , antepartum acute January 06, 2025 1 :00pm History of miscarriage, currently acute January 06 1:00pm Hx of section acute [facility] 2024 1:00pm Hx of pre-eclampsia in prior , currently acute [facility] 2024 1:00pm Iron deficiency anemia acute [facility] 2024 1:00pm Marijuana use during acute January 06, 2025 1:00pm Obesity affecting acute January 06, 2025 1:00pm acute January 06, 2025 1:00pm Supervision of high-risk acute January 06, 2025 1 :00pm ADD (attention deficit disorder) acute January 19, 2025 11:25am Anemia affecting acute January 19, 2025 11:25am Anxiety acute January 19 11:25am Current smoker acute January 19, 2025 11:25am Family history of BRCA gene positive acute January 19, 2025 11:25am Gestational diabetes mellitu s (GDM) affecting , antepartum acute January 19, 2025 11:25am History of miscarriage, currently acute January 19 11:25am History of ovarian cyst acute [facility] 2024 11:25am Hx of section acute [facility] 2024 11:25am Hx of pre-eclampsia in prior , currently acute [facility] 2024 11:25am Internal derangement of left shoulder acute January 19, 2025 11:25am Iron deficiency anemia acute [facility] 2024 11:25am Lumbar radiculopathy acute January 19, 2025 11:25am Marijuana use during acute January 19, 2025 11:25am Obesity affecting acute January 19, 2025 11:25am acute January 19 11:25am Sacroiliitis acute January 19, 2 025 11:25am Sterilization acute January 19, 2025 11:25am Supervision of high-risk acute January 19, 2025 11:25am Asthma chronic January 19 11:25am ADD (attention deficit disorder) acute February 02, 2025 11:14am Anemia affecting acute February 02, 2025 11:14am Anxiety acute February 02 11:14am Current smoker acute January 11:14am Family history of BRCA gene positive acute February 02, 2025 11:14am Gestational diabetes mellitu s (GDM) affecting , antepartum acute February 02, 2025 11:14am History of miscarriage, currently acute February 02, 025 11:14am History of ovarian cyst acute [facility] 2024 11:14am Hx of section acute [facility] 2024 11:14am Hx of pre-eclampsia in prior , currently acute [facility] 2024 11:14am Internal derangement of left shoulder acute February 02, 2025 11:14am Iron deficiency anemia acute [facility] 2024 11:14am Lumbar radiculopathy acute Janu 2024 11:14am Marijuana use during acute February 02, 2025 11:14am Obesity affecting acute February 02, 2025 11:14am acute February 02 11:14am Sacroiliitis acute February 02, 2025 11:14am Sterilization acute February 02, 2025 11:14am Supervision of high-risk acute February 02, 2025 11:14am Asthma chronic February 02 11:14am ADD (attention deficit disorder) acute February 10 10:44am Anemia affecting acute February 10, 2025 10:44am Anxiety acute February 10 10:44am Current smoker acute January 10:44am Family history of BRCA gene positive acute February 10 10:44am Gestational diabetes mellitu s (GDM) affecting , antepartum acute February 10 10:44am History of miscarriage, currently acute February 10, 2025 10:44am History of ovarian cyst acute [facility] 2024 10:44am Hx of section acute [facility] 2024 10:44am Hx of pre-eclampsia in prior , currently acute [facility] 2024 10:44am Internal derangement of left shoulder acute February 10 10:44am Iron deficiency anemia acute [facility] 2024 10:44am Lumbar radiculopathy acute [facility] 2024 10:44am Marijuana use during acute February 10, 2025 10:44am Obesity affecting acute February 10, 2025 10:44am acute February 10, 025 10:44am Sacroiliitis acute February 10, 2025 10:44am Sterilization acute January 10:44am Supervision of high-risk acute February 10 10:44am Asthma chronic February 10, 025 10:44am ADD (attention deficit disorder) acute February 19 10:02am Anemia affecting acute February 19, 2025 10:02am Anxiety acute February 19 025 10:02am Current smoker acute January d2024 10:02am Family history of BRCA gene positive acute February 19 10:02am Gestational diabetes mellitu s (GDM) affecting , antepartum acute February 19 10:02am History of miscarriage, currently acute February 19, 2025 10:02am History of ovarian cyst acute [facility] 2024 10:02am Hx of section acute [facility] 2024 10:02am Hx of pre-eclampsia in prior , currently acute [facility] 2024 10:02am Internal derangement of left shoulder acute February 19 10:02am Iron deficiency anemia acute [facility] 2024 10:02am Lumbar radiculopathy acute [facility] 2024 10:02am Marijuana use during acute February 19, 2025 10:02am Obesity affecting acute February 19, 2025 10:02am acute February 19 10:02am Pruritus of in thi rd trimester acute February 19 10:02am Sacroiliitis acute February 19, 2025 10:02am Sterilization acute January 10:02am Supervision of high-risk acute February 19 10:02am Asthma chronic February 19 10:02am ADD (attention deficit disorder) acute February 26 9:00am Anemia affecting acute February 26, 2025 9:00am Anxiety acute February 26, 025 9:00am Current smoker acute January 9:00am Family history of BRCA gene positive acute February 26 5 9:00am Gestational diabetes mellitu s (GDM) affecting , antepartum acute February 26 9:00am Headache in acute Aug ust 2024 9:00am History of miscarriage, currently acute February 26, 2025 9:00am History of ovarian cyst acute [facility] 2024 9:00am Hx of section acute [place] 2024 9:00am Hx of pre-eclampsia in prior , currently acute [place] 2024 9:00am Internal derangement of left shoulder acute February 26 9:00am Iron deficiency anemia acute [place] 2024 9:00am Lumbar radiculopathy acute [facility] 2024 9:00am Marijuana use during acute February 26, 2025 9:00am Obesity affecting acute February 26, 2025 9:00am acute February 26, 2 025 9:00am Pruritus of in thi rd trimester acute February 26 9:00am Sacroiliitis acute February 26, 2025 9:00am Sterilization acute January 9:00am Supervision of high-risk acute February 26 9:00am Asthma chronic February 26, 2 025 9:00am [facility] Work Phone: [phone]) 726-196905-14-2025 Evaluation note* Diagnosis Onset Date Resolution Status Admit Date ADD (attention deficit disorder) acute November 11, 2024 1 0:54am Anemia affecting acute November 11, 2024 10:54am Anxiety acute November 11, 2024 10:54am Current smoker acute November 11, 2024 10:54am Family history of BRCA gene positive acute November 11, 2024 1 0:54am History of miscarriage, currently acute November 11 10:54am History of ovarian cyst acute [facility] 2024 10:54am Hx of section acute 2024 10:54am Hx of pre-eclampsia in prior , currently acute y 2024 10:54am Internal derangement of left shoulder acute November 11, 2024 1 0:54am Iron deficiency anemia acute Ma y 2024 10:54am Lumbar radiculopathy acute November 11, 2024 10:54am Marijuana use during acute November 11, 2024 1 0:54am Obesity affecting acute November 11, 2024 10:54am acute November 11, 2024 10:54am Sacroiliitis acute November 11 10:54am Supervision of high-risk acute November 11, 2024 1 0:54am Asthma chronic November 11, 2024 10:54am History of gestational diabetes mellitus (GDM) in prior , currentl inactive November [id number] 10:54am ADD (attention deficit disorder) acute December 09, 2024 11:01am Anemia affecting acute December 09, 2024 11:01am Anxiety acute December 09 11:01am Current smoker acute December 09, 2024 11:01am Family history of BRCA gene positive acute December 09, 2024 11:01am History of miscarriage, currently acute December 09 11:01am History of ovarian cyst acute J [facility] 2024 11:01am Hx of section acute [facility] 2024 11:01am Hx of pre-eclampsia in prior , currently acute [facility] 2024 11:01am Internal derangement of left shoulder acute December 09, 2024 11:01am Iron deficiency anemia acute [facility] 2024 11:01am Lumbar radiculopathy acute December 09, 2024 11:01am Marijuana use during acute December 09, 2024 11:01am Obesity affecting acute December 09, 2024 11:01am acute December 09 11:01am Sacroiliitis acute December 09, 2 025 11:01am Supervision of high-risk acute December 09, 2024 11:01am Asthma chronic December 09 11:01am History of gestational diabetes mellitus (GDM) in prior , currentl inactive November [id number] 11:01am Anemia affecting acute January 06, 2025 1:00pm Anxiety acute January 06, 2025 1:00pm Current smoker acute January 06, 2025 1:00pm Gestational diabetes mellitu s (GDM) affecting , antepartum acute January 06, 2025 1 :00pm History of miscarriage, currently acute January 06 1:00pm Hx of section acute [facility] 2024 1:00pm Hx of pre-eclampsia in prior , currently acute [facility] 2024 1:00pm Iron deficiency anemia acute [facility] 2024 1:00pm Marijuana use during acute January 06, 2025 1 :00pm Obesity affecting acute January 06, 2025 1:00pm acute January 06, 2025 1:00pm Supervision of high-risk acute January 06, 2025 1 :00pm ADD (attention deficit disorder) acute January 19, 2025 11:25am Anemia affecting acute January 19, 2025 11:25am Anxiety acute January 19 11:25am Current smoker acute January 19, 2025 11:25am Family history of BRCA gene positive acute January 19, 2025 11:25am Gestational diabetes mellitu s (GDM) affecting , antepartum acute January 19, 2025 11:25am History of miscarriage, currently acute January 19 11:25am History of ovarian cyst acute J [facility] 2024 11:25am Hx of section acute [facility] 2024 11:25am Hx of pre-eclampsia in prior , currently acute [facility] 2024 11:25am Internal derangement of left shoulder acute January 19, 2025 11:25am Iron deficiency anemia acute [facility] 2024 11:25am Lumbar radiculopathy acute January 19, 2025 11:25am Marijuana use during acute January 19, 2025 11:25am Obesity affecting acute January 19, 2025 11:25am acute January 19 11:25am Sacroiliitis acute January 19, 2 025 11:25am Sterilization acute January 19, 2025 11:25am Supervision of high-risk acute January 19, 2025 11:25am Asthma chronic January 19 11:25am ADD (attention deficit disorder) acute February 02, 2025 11:14am Anemia affecting acute February 02, 2025 11:14am Anxiety acute February 02 11:14am Current smoker acute January 11:14am Family history of BRCA gene positive acute February 02, 2025 11:14am Gestational diabetes mellitu s (GDM) affecting , antepartum acute February 02, 2025 11:14am History of miscarriage, currently acute February 02 025 11:14am History of ovarian cyst acute [facility]2024 11:14am Hx of section acute [facility] 2024 11:14am Hx of pre-eclampsia in prior , currently acute [facility] 2024 11:14am Internal derangement of left shoulder acute February 02, 2025 11:14am Iron deficiency anemia acute [facility] 2024 11:14am Lumbar radiculopathy acute [facility] 2024 11:14am Marijuana use during acute February 02, 2025 11:14am Obesity affecting acute February 02, 2025 11:14am acute February 02 11:14am Sacroiliitis acute February 02, 2025 11:14am Sterilization acute February 02, 2025 11:14am Supervision of high-risk acute February 02, 2025 11:14am Asthma chronic February 02 11:14am ADD (attention deficit disorder) acute February 10 10:44am Anemia affecting acute February 10, 2025 10:44am Anxiety acute February 10 10:44am Current smoker acute January 10:44am Family history of BRCA gene positive acute February 10 10:44am Gestational diabetes mellitu s (GDM) affecting , antepartum acute February 10 10:44am History of miscarriage, currently acute February 10, 2025 10:44am History of ovarian cyst acute A [facility] 2024 10:44am Hx of section acute [facility] 2024 10:44am Hx of pre-eclampsia in prior , currently acute [facility] 2024 10:44am Internal derangement of left shoulder acute February 10 10:44am Iron deficiency anemia acute [facility] 2024 10:44am Lumbar radiculopathy acute [facility] 2024 10:44am Marijuana use during acute February 10 10:44am Obesity affecting acute February 10, 2025 10:44am acute February 10 10:44am Sacroiliitis acute February 10, 2025 10:44am Sterilization acute January 10:44am Supervision of high-risk acute February 10 5 10:44am Asthma chronic February 10, 025 10:44am ADD (attention deficit disorder) acute February 19 10:02am Anemia affecting acute February 19, 2025 10:02am Anxiety acute February 19, 025 10:02am Current smoker acute January 10:02am Family history of BRCA gene positive acute February 19 10:02am Gestational diabetes mellitu s (GDM) affecting , antepartum acute February 19 10:02am History of miscarriage, currently acute February 19, 2025 10:02am History of ovarian cyst acute [facility] 2024 10:02am Hx of section acute [facility] 2024 10:02am Hx of pre-eclampsia in prior , currently acute [facility] 2024 10:02am Internal derangement of left shoulder acute February 19 10:02am Iron deficiency anemia acute [facility] 2024 10:02am Lumbar radiculopathy acute [facility] 2024 10:02am Marijuana use during acute February 19 10:02am Obesity affecting acute February 19, 2025 10:02am acute February 19 10:02am Pruritus of in third trimester acute February 19 10:02am Sacroiliitis acute February 19, 2025 10:02am Sterilization acute January 10:02am Supervision of high-risk acute February 19 10:02am Asthma chronic February 19, 025 10:02am ADD (attention deficit disorder) acute February 26 9:00am Anemia affecting acute February 26, 2025 9:00am Anxiety acute February 26, 025 9:00am Current smoker acute January 9:00am Family history of BRCA gene positive acute February 26 9:00am Gestational diabetes mellitu s (GDM) affecting , antepartum acute February 26 9:00am Headache in acute Jan [facility]2024 9:00am History of miscarriage, currently acute February 26, 2025 9:00am History of ovarian cyst acute [facility] 2024 9:00am Hx of section acute [facility] 2024 9:00am Hx of pre-eclampsia in prior , currently acute [facility] 2024 9:00am Internal derangement of left shoulder acute February 26 9:00am Iron deficiency anemia acute [facility] 2024 9:00am Lumbar radiculopathy acute [facility] 2024 9:00am Marijuana use during acute February 26 9:00am Obesity affecting acute February 26, 2025 9:00am acute February 26, 025 9:00am Pruritus of in third trimester acute February 26 9:00am Sacroiliitis acute February 26, 2025 9:00am Sterilization acute January 9:00am Supervision of high-risk acute February 26 9:00am Asthma chronic February 26, 025 9:00am False labor acute March 1:35pm [facility] Work Phone: 1(384) 417-508304-18-2025 Evaluation note* Diagnosis Onset Date Resolution Status Admit Date ADD (attention deficit disorder) acute October 16, 2024 11:11am Anxiety acute October 16 11:11am Current smoker acute September 11:11am History of miscarriage, currently acute October 16, 025 11:11am Hx of section acute [facility] 2024 11:11am Hx of pre-eclampsia in prior , currently acute [facility] 2024 11:11am Iron deficiency anemia acute [facility] 2024 11:11am Marijuana use during acute October 16, 2024 11:11am Obesity affecting acute October 16, 2024 11:11am acute October 16 11:11am Supervision of high-risk acute October 16, 2024 11:11am History of gestational diabe emily mellitus (GDM) in prior , currentl inactive October 16, 2024 11:11am ADD (attention deficit disorder) acute November 11, 2024 1 0:54am Anemia affecting acute November 11, 2024 10:54am Anxiety acute November 11, 2024 10:54am Current smoker acute November 11, 2024 10:54am Family history of BRCA gene positive acute November 11, 2024 1 0:54am History of miscarriage, currently acute November 11 10:54am History of ovarian cyst acute [facility] 2024 10:54am Hx of section acute Ma y 2024 10:54am Hx of pre-eclampsia in prior , currently acute Ma y 2024 10:54am Internal derangement of left shoulder acute November 11, 2024 1 0:54am Iron deficiency anemia acute Ma y 2024 10:54am Lumbar radiculopathy acute November 11, 2024 10:54am Marijuana use during acute November 11, 2024 10:54am Obesity affecting acute November 11, 2024 10:54am acute November 11, 2024 10:54am Sacroiliitis acute November 11 10:54am Supervision of high-risk acute November 11, 2024 1 0:54am Asthma chronic November 11, 2024 10:54am History of gestational diabe emily mellitus (GDM) in prior , currentl inactive November 11 10:54am ADD (attention deficit disorder) acute December 09, 2024 11:01am Anemia affecting acute December 09, 2024 11:01am Anxiety acute December 09 11:01am Current smoker acute December 09, 2024 11:01am Family history of BRCA gene positive acute December 09, 2024 11:01am History of miscarriage, currently acute December 09 11:01am History of ovarian cyst acute J [facility] 2024 11:01am Hx of section acute [place] 2024 11:01am Hx of pre-eclampsia in prior , currently acute [facility] 2024 11:01am Internal derangement of left shoulder acute December 09, 2024 11:01am Iron deficiency anemia acute [facility] 2024 11:01am Lumbar radiculopathy acute December 09, 2024 11:01am Marijuana use during acute December 09, 2024 11:01am Obesity affecting acute December 09, 2024 11:01am acute December 09 11:01am Sacroiliitis acute December 09 025 11:01am Supervision of high-risk acute December 09, 2024 11:01am Asthma chronic December 09 11:01am History of gestational diabe emily mellitus (GDM) in prior , currentl inactive December 09, 11:01am Anemia affecting acute January 06, 2025 1:00pm Anxiety acute January 06, 2025 1:00pm Current smoker acute January 06, 2025 1:00pm Gestational diabetes mellitu s (GDM) affecting , antepartum acute January 06, 2025 1 :00pm History of miscarriage, currently acute January 06 1:00pm Hx of section acute [facility] 2024 1:00pm Hx of pre-eclampsia in prior , currently acute [facility] 2024 1:00pm Iron deficiency anemia acute [facility] 2024 1:00pm Marijuana use during acute January 06, 2025 1:00pm Obesity affecting acute January 06, 2025 1:00pm acute January 06, 2025 1:00pm Supervision of high-risk acute January 06, 2025 1 :00pm ADD (attention deficit disorder) acute January 19, 2025 11:25am Anemia affecting acute January 19, 2025 11:25am Anxiety acute January 19 11:25am Current smoker acute January 19, 2025 11:25am Family history of BRCA gene positive acute January 19, 2025 11:25am Gestational diabetes mellitu s (GDM) affecting , antepartum acute January 19, 2025 11:25am History of miscarriage, currently acute January 19 11:25am History of ovarian cyst acute [facility] 2024 11:25am Hx of section acute [facility] 2024 11:25am Hx of pre-eclampsia in prior , currently acute [facility] 2024 11:25am Internal derangement of left shoulder acute January 19, 2025 11:25am Iron deficiency anemia acute [facility] 2024 11:25am Lumbar radiculopathy acute January 19, 2025 11:25am Marijuana use during acute January 19, 2025 11:25am Obesity affecting acute January 19, 2025 11:25am acute January 19 11:25am Sacroiliitis acute January 19 11:25am Sterilization acute January 19, 2025 11:25am Supervision of high-risk acute January 19, 2025 11:25am Asthma chronic January 19 11:25am [facility] Work Phone: [phone] Evaluation note* Diagnosis Onset Date Resolution Status Admit Date ADD (attention deficit disorder) acute October 16, 2024 11:11am Anxiety acute October 16 11:11am Current smoker acute September 11:11am History of miscarriage, currently acute October 16 11:11am Hx of section acute [facility] 2024 11:11am Hx of pre-eclampsia in prior , currently acute [facility] 2024 11:11am Iron deficiency anemia acute [facility] 2024 11:11am Marijuana use during acute October 16, 2024 11:11am Obesity affecting acute October 16, 2024 11:11am acute October 16 11:11am Supervision of high-risk acute October 16, 2024 11:11am History of gestational diabe emily mellitus (GDM) in prior , currentl inactive October 16, 2024 11:11am ADD (attention deficit disorder) acute November 11, 2024 1 0:54am Anemia affecting acute November 11, 2024 10:54am Anxiety acute November 11, 2024 10:54am Current smoker acute November 11, 2024 10:54am Family history of BRCA gene positive acute November 11, 2024 1 0:54am History of miscarriage, currently acute November 11 10:54am History of ovarian cyst acute [facility] 2024 10:54am Hx of section acute [facility] 2024 10:54am Hx of pre-eclampsia in prior , currently acute Ma y 2024 10:54am Internal derangement of left shoulder acute November 11, 2024 1 0:54am Iron deficiency anemia acute Ma y 2024 10:54am Lumbar radiculopathy acute November 11, 2024 10:54am Marijuana use during acute November 11, 2024 10:54am Obesity affecting acute November 11, 2024 10:54am acute November 11, 2024 10:54am Sacroiliitis acute November 11 10:54am Supervision of high-risk acute November 11, 2024 1 0:54am Asthma chronic November 11, 2024 10:54am History of gestational diabe emily mellitus (GDM) in prior , currentl inactive November 11 10:54am ADD (attention deficit disorder) acute December 09, 2024 11:01am Anemia affecting acute December 09, 2024 11:01am Anxiety acute December 09 11:01am Current smoker acute December 09, 2024 11:01am Family history of BRCA gene positive acute December 09, 2024 11:01am History of miscarriage, currently acute December 09 11:01am History of ovarian cyst acute [facility] 2024 11:01am Hx of section acute [facility] 2024 11:01am Hx of pre-eclampsia in prior , currently acute [facility] 2024 11:01am Internal derangement of left shoulder acute December 09, 2024 11:01am Iron deficiency anemia acute [facility] 2024 11:01am Lumbar radiculopathy acute December 09, 2024 11:01am Marijuana use during acute December 09, 2024 11:01am Obesity affecting acute December 09, 2024 11:01am acute December 09 11:01am Sacroiliitis acute December 09, 025 11:01am Supervision of high-risk acute December 09, 2024 11:01am Asthma chronic December 09 11:01am History of gestational diabe emily mellitus (GDM) in prior , currentl inactive December 09 11:01am Anemia affecting acute January 06, 2025 1:00pm Anxiety acute January 06, 2025 1:00pm Current smoker acute January 06, 2025 1:00pm Gestational diabetes mellitu s (GDM) affecting , antepartum acute January 06, 2025 1 :00pm History of miscarriage, currently acute January 06 1:00pm Hx of section acute [facility] 2024 1:00pm Hx of pre-eclampsia in prior , currently acute ly 2024 1:00pm Iron deficiency anemia acute [facility] 2024 1:00pm Marijuana use during acute January 06, 2025 1:00pm Obesity affecting acute January 06, 2025 1:00pm acute January 06, 2025 1:00pm Supervision of high-risk acute January 06, 2025 1 :00pm ADD (attention deficit disorder) acute January 19, 2025 11:25am Anemia affecting acute January 19, 2025 11:25am Anxiety acute January 19 11:25am Current smoker acute January 19, 2025 11:25am Family history of BRCA gene positive acute January 19, 2025 11:25am Gestational diabetes mellitu s (GDM) affecting , antepartum acute January 19, 2025 11:25am History of miscarriage, currently acute January 19 11:25am History of ovarian cyst acute [facility] 2024 11:25am Hx of section acute [facility] 2024 11:25am Hx of pre-eclampsia in prior , currently acute [facility] 2024 11:25am Internal derangement of left shoulder acute January 19, 2025 11:25am Iron deficiency anemia acute [facility] 2024 11:25am Lumbar radiculopathy acute January 19, 2025 11:25am Marijuana use during acute January 19, 2025 11:25am Obesity affecting acute January 19, 2025 11:25am acute January 19 11:25am Sacroiliitis acute January 19, 2 025 11:25am Sterilization acute January 19, 2025 11:25am Supervision of high-risk acute January 19, 2025 11:25am Asthma chronic January 19 11:25am ADD (attention deficit disorder) acute February 02, 2025 11:14am Anemia affecting acute February 02, 2025 11:14am Anxiety acute February 02 11:14am Current smoker acute January 11:14am Family history of BRCA gene positive acute February 02, 2025 11:14am Gestational diabetes mellitu s (GDM) affecting , antepartum acute February 02, 2025 11:14am History of miscarriage, currently acute February 02 025 11:14am History of ovarian cyst acute A ugust 2024 11:14am Hx of section acute Au 2024 11:14am Hx of pre-eclampsia in prior , currently acute [place] 2024 11:14am Internal derangement of left shoulder acute February 02, 2025 11:14am Iron deficiency anemia acute [place] 2024 11:14am Lumbar radiculopathy acute Aug[facility] 2024 11:14am Marijuana use during acute February 02, 2025 11:14am Obesity affecting acute February 02, 2025 11:14am acute February 02 11:14am Sacroiliitis acute February 02, 2025 11:14am Sterilization acute February 02, 2025 11:14am Supervision of high-risk acute February 02, 2025 11:14am Asthma chronic February 02 11:14am [facility] Work Phone: 1(604) 405-596804-18-2025 Evaluation note* Diagnosis Onset Date Resolution Status Admit Date ADD (attention deficit disorder) acute October 16, 2024 11:11am Anxiety acute October 16 11:11am Current smoker acute September 11:11am History of miscarriage, currently acute October 16, 11:11am Hx of section acute Ap ril 2024 11:11am Hx of pre-eclampsia in prior , currently acute Ap ril 2024 11:11am Iron deficiency anemia acute Ap ril 2024 11:11am Marijuana use during acute October 16, 2024 11:11am Obesity affecting acute October 16, 2024 11:11am acute October 16 11:11am Supervision of high-risk acute October 16, 2024 11:11am History of gestational diabe emily mellitus (GDM) in prior , currentl inactive October 16, 2024 11:11am ADD (attention deficit disorder) acute November 11, 2024 1 0:54am Anemia affecting acute November 11, 2024 10:54am Anxiety acute November 11, 2024 10:54am Current smoker acute November 11, 2024 10:54am Family history of BRCA gene positive acute November 11, 2024 1 0:54am History of miscarriage, currently acute November 11 10:54am History of ovarian cyst acute M ay 2024 10:54am Hx of section acute Ma y 2024 10:54am Hx of pre-eclampsia in prior , currently acute Ma y 2024 10:54am Internal derangement of left shoulder acute November 11, 2024 1 0:54am Iron deficiency anemia acute Ma y 2024 10:54am Lumbar radiculopathy acute November 11, 2024 10:54am Marijuana use during acute November 11, 2024 10:54am Obesity affecting acute November 11, 2024 10:54am acute November 11, 2024 10:54am Sacroiliitis acute November 11 10:54am Supervision of high-risk acute November 11, 2024 1 0:54am Asthma chronic November 11, 2024 10:54am History of gestational diabe emily mellitus (GDM) in prior , currentl inactive November 11 10:54am ADD (attention deficit disorder) acute December 09, 2024 11:01am Anemia affecting acute December 09, 2024 11:01am Anxiety acute December 09 11:01am Current smoker acute December 09, 2024 11:01am Family history of BRCA gene positive acute December 09, 2024 11:01am History of miscarriage, currently acute December 09 11:01am History of ovarian cyst acute J [facility] 2024 11:01am Hx of section acute Ju [place] 2024 11:01am Hx of pre-eclampsia in prior , currently acute Ju ne 2024 11:01am Internal derangement of left shoulder acute December 09, 2024 11:01am Iron deficiency anemia acute Ju ne 2024 11:01am Lumbar radiculopathy acute December 09, 2024 11:01am Marijuana use during acute December 09, 2024 11:01am Obesity affecting acute December 09, 2024 11:01am acute December 09 11:01am Sacroiliitis acute December 09 11:01am Supervision of high-risk acute December 09, 2024 11:01am Asthma chronic December 09 11:01am History of gestational diabe emily mellitus (GDM) in prior , currentl inactive December 09, 11:01am Anemia affecting acute January 06, 2025 1:00pm Anxiety acute January 06, 2025 1:00pm Current smoker acute January 06, 2025 1:00pm Gestational diabetes mellitu s (GDM) affecting , antepartum acute January 06, 2025 1 :00pm History of miscarriage, currently acute January 06 1:00pm Hx of section acute ly 2024 1:00pm Hx of pre-eclampsia in prior , currently acute ly 2024 1:00pm Iron deficiency anemia acute ly 2024 1:00pm Marijuana use during acute January 06, 2025 1:00pm Obesity affecting acute January 06, 2025 1:00pm acute January 06, 2025 1:00pm Supervision of high-risk acute January 06, 2025 1 :00pm ADD (attention deficit disorder) acute January 19, 2025 11:25am Anemia affecting acute January 19, 2025 11:25am Anxiety acute January 19 11:25am Current smoker acute January 19, 2025 11:25am Family history of BRCA gene positive acute January 19, 2025 11:25am Gestational diabetes mellitu s (GDM) affecting , antepartum acute January 19, 2025 11:25am History of miscarriage, currently acute January 19 11:25am History of ovarian cyst acute J [place] 2024 11:25am Hx of section acute Ju ly 2024 11:25am Hx of pre-eclampsia in prior , currently acute ly 2024 11:25am Internal derangement of left shoulder acute January 19, 2025 11:25am Iron deficiency anemia acute Ju ly 2024 11:25am Lumbar radiculopathy acute January 19, 2025 11:25am Marijuana use during acute January 19, 2025 11:25am Obesity affecting acute January 19, 2025 11:25am acute January 19 11:25am Sacroiliitis acute January 19 11:25am Sterilization acute January 19, 2025 11:25am Supervision of high-risk acute January 19, 2025 11:25am Asthma chronic January 19 11:25am ADD (attention deficit disorder) acute February 02, 2025 11:14am Anemia affecting acute February 02, 2025 11:14am Anxiety acute February 02 11:14am Current smoker acute January 11:14am Family history of BRCA gene positive acute February 02, 2025 11:14am Gestational diabetes mellitu s (GDM) affecting , antepartum acute February 02, 2025 11:14am History of miscarriage, currently acute February 02 11:14am History of ovarian cyst acute A [facility] 2024 11:14am Hx of section acute [facility] 2024 11:14am Hx of pre-eclampsia in prior , currently acute [facility] 2024 11:14am Internal derangement of left shoulder acute February 02, 2025 11:14am Iron deficiency anemia acute [facility] 2024 11:14am Lumbar radiculopathy acute 2024 11:14am Marijuana use during acute February 02, 2025 11:14am Obesity affecting acute February 02, 2025 11:14am acute February 02 11:14am Sacroiliitis acute February 02, 2025 11:14am Sterilization acute February 02, 2025 11:14am Supervision of high-risk acute February 02, 2025 11:14am Asthma chronic February 02 11:14am ADD (attention deficit disorder) acute February 10 10:44am Anemia affecting acute February 10, 2025 10:44am Anxiety acute February 10 10:44am Current smoker acute January 10:44am Family history of BRCA gene positive acute February 10 10:44am Gestational diabetes mellitu s (GDM) affecting , antepartum acute February 10 10:44am History of miscarriage, currently acute February 10, 2025 10:44am History of ovarian cyst acute A [place] 2024 10:44am Hx of section acute [facility] 2024 10:44am Hx of pre-eclampsia in prior , currently acute [facility] 2024 10:44am Internal derangement of left shoulder acute February 10 10:44am Iron deficiency anemia acute [facility] 2024 10:44am Lumbar radiculopathy acute Augu [facility] 2024 10:44am Marijuana use during acute February 10, 2025 10:44am Obesity affecting acute February 10, 2025 10:44am acute February 10 10:44am Sacroiliitis acute February 10, 2025 10:44am Sterilization acute January 10:44am Supervision of high-risk acute February 10 10:44am Asthma chronic February 10 10:44am [facility] Work Phone: 1([phone]) 523-845703-20-2025 Evaluation note* Diagnosis Onset Date Resolution Status Admit Date ADD (attention deficit disorder) acute September 17, 2024 11:33am Anxiety acute September 17 11:33am Current smoker acute August 11:33am History of miscarriage, currently acute September 17 11:33am Hx of section acute [facility] 2024 11:33am Hx of pre-eclampsia in prior , currently acute [facility] 2024 11:33am Iron deficiency anemia acute [facility] 2024 11:33am Marijuana use during acute September 17, 2024 11:33am Obesity affecting acute September 17, 2024 11:33am acute September 17 11:33am Supervision of high-risk acute September 17, 2024 11:33am History of gestational diabe emily mellitus (GDM) in prior , currentl inactive September 17, 2024 11:33am ADD (attention deficit disorder) acute October 16, 2024 11:11am Anxiety acute October 16 11:11am Current smoker acute September 11:11am History of miscarriage, currently acute October 16 11:11am Hx of section acute [facility] 2024 11:11am Hx of pre-eclampsia in prior , currently acute Ap ril 2024 11:11am Iron deficiency anemia acute Ap ril 2024 11:11am Marijuana use during acute October 16, 2024 11:11am Obesity affecting acute October 16, 2024 11:11am acute October 16 11:11am Supervision of high-risk acute October 16, 2024 11:11am History of gestational diabe emily mellitus (GDM) in prior , currentl inactive October 16, 2024 11:11am ADD (attention deficit disorder) acute November 11, 2024 1 0:54am Anemia affecting acute November 11, 2024 10:54am Anxiety acute November 11, 2024 10:54am Current smoker acute November 11, 2024 10:54am Family history of BRCA gene positive acute November 11, 2024 1 0:54am History of miscarriage, currently acute November 11 10:54am History of ovarian cyst acute ay 2024 10:54am Hx of section acute Ma y 2024 10:54am Hx of pre-eclampsia in prior , currently acute Ma y 2024 10:54am Internal derangement of left shoulder acute November 11, 2024 1 0:54am Iron deficiency anemia acute Ma y 2024 10:54am Lumbar radiculopathy acute November 11, 2024 10:54am Marijuana use during acute November 11, 2024 10:54am Obesity affecting acute November 11, 2024 10:54am acute November 11, 2024 10:54am Sacroiliitis acute November 11 10:54am Supervision of high-risk acute November 11, 2024 1 0:54am Asthma chronic November 11, 2024 10:54am History of gestational diabe emily mellitus (GDM) in prior , currentl inactive November 11 10:54am ADD (attention deficit disorder) acute December 09, 2024 11:01am Anemia affecting acute December 09, 2024 11:01am Anxiety acute December 09 11:01am Current smoker acute December 09, 2024 11:01am Family history of BRCA gene positive acute December 09, 2024 11:01am History of miscarriage, currently acute December 09 11:01am History of ovarian cyst acute J une 2024 11:01am Hx of section acute Ju [place] 2024 11:01am Hx of pre-eclampsia in prior , currently acute Ju [place] 2024 11:01am Internal derangement of left shoulder acute December 09, 2024 11:01am Iron deficiency anemia acute [place] 2024 11:01am Lumbar radiculopathy acute December 09, 2024 11:01am Marijuana use during acute December 09, 2024 11:01am Obesity affecting acute December 09, 2024 11:01am acute December 09 11:01am Sacroiliitis acute December 09, 025 11:01am Supervision of high-risk acute December 09, 2024 11:01am Asthma chronic December 09 11:01am History of gestational diabe emily mellitus (GDM) in prior , currentl inactive December 09, 025 11:01am ADD (attention deficit disorder) acute January 06, 2025 1 :00pm Anemia affecting acute January 06, 2025 1:00pm Anxiety acute January 06, 2025 1:00pm Current smoker acute January 06, 2025 1:00pm Family history of BRCA gene positive acute January 06, 2025 1 :00pm Gestational diabetes mellitu s (GDM) affecting , antepartum acute January 06, 2025 1 :00pm History of miscarriage, currently acute January 06 1:00pm History of ovarian cyst acute J [place] 2024 1:00pm Hx of section acute Ju ly 2024 1:00pm Hx of pre-eclampsia in prior , currently acute Ju ly 2024 1:00pm Internal derangement of left shoulder acute January 06, 2025 1 :00pm Iron deficiency anemia acute Ju ly 2024 1:00pm Lumbar radiculopathy acute January 06, 2025 1:00pm Marijuana use during acute January 06, 2025 1:00pm Obesity affecting acute January 06, 2025 1:00pm acute January 06, 2025 1:00pm Sacroiliitis acute January 06 1:00pm Supervision of high-risk acute January 06, 2025 1 :00pm Asthma chronic January 06, 2025 1:00pm [facility] Work Phone: 1([phone]) 258-902503-20-2025 Evaluation note* Diagnosis Onset Date Resolution Status Admit Date ADD (attention deficit disorder) acute September 17, 2024 11:33am Anxiety acute September 17 11:33am Current smoker acute August 11:33am History of miscarriage, currently acute September 17 11:33am Hx of section acute [facility] 2024 11:33am Hx of pre-eclampsia in prior , currently acute [facility] 2024 11:33am Iron deficiency anemia acute [facility] 2024 11:33am Marijuana use during acute September 17, 2024 11:33am Obesity affecting acute September 17, 2024 11:33am acute September 17 11:33am Supervision of high-risk acute September 17, 2024 11:33am History of gestational diabe emily mellitus (GDM) in prior , currentl inactive September 17, 2024 11:33am ADD (attention deficit disorder) acute October 16, 2024 11:11am Anxiety acute October 16 11:11am Current smoker acute September 11:11am History of miscarriage, currently acute October 16, 2 025 11:11am Hx of section acute ril 2024 11:11am Hx of pre-eclampsia in prior , currently acute Ap ril 2024 11:11am Iron deficiency anemia acute Ap ril 2024 11:11am Marijuana use during acute October 16, 2024 11:11am Obesity affecting acute October 16, 2024 11:11am acute October 16 11:11am Supervision of high-risk acute October 16, 2024 11:11am History of gestational diabe emily mellitus (GDM) in prior , currentl inactive October 16, 2024 11:11am ADD (attention deficit disorder) acute November 11, 2024 1 0:54am Anemia affecting acute November 11, 2024 10:54am Anxiety acute November 11, 2024 10:54am Current smoker acute November 11, 2024 10:54am Family history of BRCA gene positive acute November 11, 2024 1 0:54am History of miscarriage, currently acute November 11 10:54am History of ovarian cyst acute M ay 2024 10:54am Hx of section acute Ma y 2024 10:54am Hx of pre-eclampsia in prior , currently acute Ma y 2024 10:54am Internal derangement of left shoulder acute November 11, 2024 1 0:54am Iron deficiency anemia acute Ma y 2024 10:54am Lumbar radiculopathy acute November 11, 2024 10:54am Marijuana use during acute November 11, 2024 10:54am Obesity affecting acute November 11, 2024 10:54am acute November 11, 2024 10:54am Sacroiliitis acute November 11 10:54am Supervision of high-risk acute November 11, 2024 1 0:54am Asthma chronic November 11, 2024 10:54am History of gestational diabe emily mellitus (GDM) in prior , currentl inactive November 11 10:54am ADD (attention deficit disorder) acute December 09, 2024 11:01am Anemia affecting acute December 09, 2024 11:01am Anxiety acute December 09 11:01am Current smoker acute December 09, 2024 11:01am Family history of BRCA gene positive acute December 09, 2024 11:01am History of miscarriage, currently acute December 09 11:01am History of ovarian cyst acute J [facility] 2024 11:01am Hx of section acute Ju [place] 2024 11:01am Hx of pre-eclampsia in prior , currently acute Ju [place] 2024 11:01am Internal derangement of left shoulder acute December 09, 2024 11:01am Iron deficiency anemia acute [place] 2024 11:01am Lumbar radiculopathy acute December 09, 2024 11:01am Marijuana use during acute December 09, 2024 11:01am Obesity affecting acute December 09, 2024 11:01am acute December 09 11:01am Sacroiliitis acute December 09 11:01am Supervision of high-risk acute December 09, 2024 11:01am Asthma chronic December 09 11:01am History of gestational diabe emily mellitus (GDM) in prior , currentl inactive December 09 11:01am Anemia affecting acute January 06, 2025 1:00pm Anxiety acute January 06, 2025 1:00pm Current smoker acute January 06, 2025 1:00pm Gestational diabetes mellitu s (GDM) affecting , antepartum acute January 06, 2025 1 :00pm History of miscarriage, currently acute January 06 1:00pm Hx of section acute ly 2024 1:00pm Hx of pre-eclampsia in prior , currently acute ly 2024 1:00pm Iron deficiency anemia acute ly 2024 1:00pm Marijuana use during acute January 06, 2025 1:00pm Obesity affecting acute January 06, 2025 1:00pm acute January 06, 2025 1:00pm Supervision of high-risk acute January 06, 2025 1 :00pm [facility] Work Phone: [phone]) 988-307503-18-2025 NoteHNO ID: [id number] Author: JUAN ALBERTO LOCKHART PA Service: ? Author Type: Physician Brush Material Preparer Type: Progress Notes Filed: 09/15/2024 08:41 Note Text: [facility] Subjective Parvin Allen is a 28 year old female. Patient presents with: Dental Problem: R side lower, tooth broke off and stuck in gum, x 1 day Painful Resources given for dentist HPI 28-year-old female presents for right side lower tooth infection. Patient states her tooth broke off about a week ago and she is having pain in this area. She has been trying to get into a dentist, but is unable to get into 1. She denies any fevers. No difficulty breathing or swallowing. She is 12 weeks . No other complaint PAST MEDICAL HISTORY Diagnosis Date Anemia Anxiety [...] ALLERGIES Patient has no known allergies. MEDICATIONS vit no.[id number] ( VITAMIN) 27 mg iron- 800 mcg tab Take 1 tablet by mouth once daily. albuterol HFA (VENTOLIN HFA) 90 mcg/actuation inhaler Inhale 2 Puffs as instructed every 4 hours as needed for Wheezing/Shortness of Breath. amoxicillin (AMOXIL) 875 mg tablet Take 1 tablet by mouth two times a day for 5 days. FAMILY HISTORY Problem Relation [...] Never Smokeless tobacco: Never Vaping Use Vaping status: Never Used Substance Use Topics Alcohol use: No Drug use: No Review of Systems Constitutional: Negative for chills and fever. HENT: Positive for dental problem. Negative for congestion, ear pain and sore throat. Respiratory: Negative for cough and shortness of breath. Cardiovascular: Negative for chest pain. Gastrointestinal: Negative for diarrhea and vomiting. Objective BP 129/85 Pulse 72 Temp 36.8 ?C (98.3 ?F) Resp 18 Wt 104 kg (229 lb 4.5 oz) LMP 06/30/2024 (Exact Date) SpO2 100% BMI 41.66 kg/m? Physical Exam Vitals and nursing note reviewed. Constitutional: General: She is not in acute distress. Appearance: Normal appearance. She is not toxic-appearing. HENT: Nose: Nose normal. Mouth/Throat: Mouth: Mucous membranes are moist. Dentition: Abnormal dentition. Dental tenderness, gingival swelling and dental caries present. No dental abscesses. Comments: Broken tooth #30 with diffuse dental decay down to the gumline. Gingival erythema noted. Tenderness. No tongue or floor mouth swelling. No trismus. Handling secretions Eyes: Conjunctiva/sclera: Conjunctivae normal. Cardiovascular: Rate and Rhythm: Normal rate and regular rhythm. Pulmonary: Effort: Pulmonary effort is normal. Breath sounds: Normal breath sounds. Skin: General: Skin is warm and dry. Neurological: Mental Status: She is alert. {ASSESSMENT/PLAN: 1. Dental infection - ICD9: 522.4, ICD10: K04.7 -Rx amoxicillin. -Ice, Tylenol as needed. -Follow-up with dentistry Diagnosis and treatment plan were discussed and questions were answered to the patient's satisfaction. Pt acknowledged understanding of concepts and follow up plan. Specific signs and symptoms that would indicate the need for higher level of care were discussed in detail warranting prompt ER evaluation. MICHAEL Null Differential Diagnoses - Dental infection is more likely for the following reason(s): suggested by HANDP - Dental abscess is less likely for the following reason(s): HANDP not suggestive - Federico's angina is less likely for the following reason(s): HANDP not suggestive Disposition The patient was discharged. OTC Medications were advised: Tylenol, [facility] of Present illness Narrative* Juan Alberto Lockhart PA - 09/15/2024 8:38 AM EDT Images from the original note were not included. [facility] Subjective Parvin Allen is a 28 year old female. Patient presents with: Dental Problem: R side lower, tooth broke off and stuck in gum, x 1 day Painful Resources given for dentist HPI 28-year-old female presents for right side lower tooth infection. Patient states her tooth broke off about a week ago and she is having pain in this area. She has been trying to get into a dentist, but is unable to get into 1. She denies any fevers. No difficulty breathing or swallowing. She is 12 weeks . No other complaint PAST MEDICAL HISTORY Diagnosis Date Anemia Anxiety [...] ALLERGIES Patient has no known allergies. MEDICATIONS vit no.[id number] ( VITAMIN) 27 mg iron- 800 mcg tab Take 1 tablet by mouth once daily. albuterol HFA (VENTOLIN HFA) 90 mcg/actuation inhaler Inhale 2 Puffs as instructed every 4 hours asneeded for Wheezing/Shortness of Breath. amoxicillin (AMOXIL) 875 mg tablet Take 1 tablet by mouth two times a day for 5 days. FAMILY HISTORY Problem Relation [...] Never Smokeless tobacco: Never Vaping Use Vaping status: Never Used Substance Use Topics Alcohol use: No Drug use: No Review of Systems Constitutional: Negative for chills and fever. HENT: Positive for dental problem. Negative for congestion, ear pain and sore throat. Respiratory: Negative for cough and shortness of breath. Cardiovascular: Negative for chest pain. Gastrointestinal: Negative for diarrhea and vomiting. Objective BP 129/85 Pulse 72 Temp 36.8 C (98.3 F) Resp 18 Wt 104 kg (229 lb 4.5 oz) LMP 06/30/2024 (Exact Date) SpO2 100% BMI 41.66 kg/m Physical Exam Vitals and nursing note reviewed. Constitutional: General: She is not in acute distress. Appearance: Normal appearance. She is not toxic-appearing. HENT: Nose: Nose normal. Mouth/Throat: Mouth: Mucous membranes are moist. Dentition: Abnormal dentition. Dental tenderness, gingival swelling and dental caries present. No dental abscesses. Comments: Broken tooth #30 with diffuse dental decay down to the gumline. Gingival erythema noted. Tenderness. No tongue or floor mouth swelling. No trismus. Handling secretions Eyes: Conjunctiva/sclera: Conjunctivae normal. Cardiovascular: Rate and Rhythm: Normal rate and regular rhythm. Pulmonary: Effort: Pulmonary effort is normal. Breath sounds: Normal breath sounds. Skin: General: Skin is warm and dry. Neurological: Mental Status: She is alert. {ASSESSMENT/PLAN: 1. Dental infection - ICD9: 522.4, ICD10: K04.7 -Rx amoxicillin. -Ice, Tylenol as needed. -Follow-up with dentistry Diagnosis and treatment plan were discussed and questions were answered to the patient's satisfaction. Pt acknowledged understanding of concepts and follow up plan. Specific signs and symptoms that would indicate the need for higher level of care were discussed in detail warranting prompt ER evaluation. MICHAEL Null Differential Diagnoses - Dental infection is more likely for the following reason(s): suggested by H&P - Dental abscess is less likely for the following reason(s): H&P not suggestive - Federico's angina is less likely for the following reason(s): H&P not suggestive Disposition The patient was discharged. OTC Medications were advised: Tylenol, ice Procedures [facility]* Diagnosis Onset Date Resolution Status Admit Date ADD (attention deficit disorder) acute August 17, 025 2:02pm Anxiety acute August 17, 2024 2:02pm Current smoker acute August 012024 2:02pm Family history of BRCA gene positive acute August 17 025 2:02pm History of gestational diabetes mellitus (GDM) in prior , currentl acute Februa ry 2024 2:02pm History of miscarriage, currently acute August 2:02pm History of ovarian cyst acute F ebruary 2024 2:02pm Hx of section acute Fe bruary 2024 2:02pm Hx of pre-eclampsia in prior , currently acute Fe bruary 2024 2:02pm Internal derangement of left shoulder acute August 17, 2 025 2:02pm Iron deficiency anemia acute Fe bruary 2024 2:02pm Lumbar radiculopathy acute Febr [place]ary 2024 2:02pm Marijuana use during acute August 17, 2024 2:02pm Obesity affecting acute August 17, 2024 2:02pm acute August 17, 2024 2:02pm Sacroiliitis acute August 2:02pm Supervision of high-risk acute August 17, 2 025 2:02pm Asthma chronic August 17, 2024 2:02pm [facility] Work Phone: 1([phone]) 689-881602-17-2025 Evaluation note* Diagnosis Onset Date Resolution Status Admit Date ADD (attention deficit disorder) acute August 17, 2 025 2:02pm Anxiety acute August 17, 2024 2:02pm Current smoker acute August 012024 2:02pm Family history of BRCA gene positive acute August 17, 2 025 2:02pm History of gestational diabetes mellitus (GDM) in prior , currentl acute Februa ry 2024 2:02pm History of miscarriage, currently acute August 2:02pm History of ovarian cyst acute F ebruary 2024 2:02pm Hx of section acute Fe [facility] 2024 2:02pm Hx of pre-eclampsia in prior , currently acute Fe [facility] 2024 2:02pm Internal derangement of left shoulder acute August 17, 2 025 2:02pm Iron deficiency anemia acute Fe [facility] 2024 2:02pm Lumbar radiculopathy acute Febr uary 2024 2:02pm Marijuana use during acute August 17, 2024 2:02pm Obesity affecting acute August 17, 2024 2:02pm acute August 17, 2024 2:02pm Sacroiliitis acute August 2:02pm Supervision of high-risk acute August 17, 2 025 2:02pm Asthma chronic August 17, 2024 2:02pm ADD (attention deficit disorder) acute September 17, 2024 11:33am Anxiety acute September 17 11:33am Current smoker acute August 11:33am History of gestational diabetes mellitus (GDM) in prior , currentl acute September 17, 2024 11:33am History of miscarriage, currently acute September 17, 2 025 11:33am Hx of section acute [facility] 2024 11:33am Hx of pre-eclampsia in prior , currently acute [facility] 2024 11:33am Iron deficiency anemia acute [facility] 2024 11:33am Marijuana use during acute September 17, 2024 11:33am Obesity affecting acute September 17, 2024 11:33am acute September 17 11:33am Supervision of high-risk acute September 17, 2024 11:33am [facility] Work Phone: 1(779) 280-118702-17-2025 Evaluation note* Diagnosis Onset Date Resolution Status Admit Date ADD (attention deficit disorder) acute August 17, 2 025 2:02pm Anxiety acute August 17, 2024 2:02pm Current smoker acute August 012024 2:02pm Family history of BRCA gene positive acute August 17, 2 025 2:02pm History of gestational diabetes mellitus (GDM) in prior , currentl acute Februa ry 2024 2:02pm History of miscarriage, currently acute August 2:02pm History of ovarian cyst acute F ebruary 2024 2:02pm Hx of section acute [facility] 2024 2:02pm Hx of pre-eclampsia in prior , currently acute [facility] 2024 2:02pm Internal derangement of left shoulder acute August 17, 2 025 2:02pm Iron deficiency anemia acute [facility] 2024 2:02pm Lumbar radiculopathy acute Febr uary 2024 2:02pm Marijuana use during acute August 17, 2024 2:02pm Obesity affecting acute August 17, 2024 2:02pm acute August 17, 2024 2:02pm Sacroiliitis acute August 2:02pm Supervision of high-risk acute August 17, 2 025 2:02pm Asthma chronic August 17, 2024 2:02pm ADD (attention deficit disorder) acute September 17, 2024 11:33am Anxiety acute September 17 11:33am Current smoker acute August 11:33am History of gestational diabetes mellitus (GDM) in prior , currentl acute September 17, 2024 11:33am History of miscarriage, currently acute September 17, 2 025 11:33am Hx of section acute [facility] 2024 11:33am Hx of pre-eclampsia in prior , currently acute [facility] 2024 11:33am Iron deficiency anemia acute [facility] 2024 11:33am Marijuana use during acute September 17, 2024 11:33am Obesity affecting acute September 17, 2024 11:33am acute September 17 11:33am Supervision of high-risk acute September 17, 2024 11:33am ADD (attention deficit disorder) acute October 16, 2024 11:11am Anxiety acute October 16 11:11am Current smoker acute September 11:11am History of gestational diabetes mellitus (GDM) in prior , currentl acute October 16, 2024 11:11am History of miscarriage, currently acute October 16, 11:11am Hx of section acute ril 2024 11:11am Hx of pre-eclampsia in prior , currently acute ril 2024 11:11am Iron deficiency anemia acute Ap ril 2024 11:11am Marijuana use during acute October 16, 2024 11:11am Obesity affecting acute October 16, 2024 11:11am acute October 16 11:11am Supervision of high-risk acute October 16, 2024 11:11am ADD (attention deficit disorder) acute November 11, 2024 1 0:54am Anemia affecting acute November 11, 2024 10:54am Anxiety acute November 11, 2024 10:54am Current smoker acute November 11, 2024 10:54am Family history of BRCA gene positive acute November 11, 2024 1 0:54am History of gestational diabetes mellitus (GDM) in prior , currentl acute November 112024 10:54am History of miscarriage, currently acute November 11 10:54am History of ovarian cyst acute ay 2024 10:54am Hx of section acute Ma y 2024 10:54am Hx of pre-eclampsia in prior , currently acute Ma y 2024 10:54am Internal derangement of left shoulder acute November 11, 2024 1 0:54am Iron deficiency anemia acute Ma y 2024 10:54am Lumbar radiculopathy acute November 11, 2024 10:54am Marijuana use during acute November 11, 2024 10:54am Obesity affecting acute November 11, 2024 10:54am acute November 11, 2024 10:54am Sacroiliitis acute November 11 10:54am Supervision of high-risk acute November 11, 2024 1 0:54am Asthma chronic November 11, 2024 10:54am [facility] [employer] Work Phone: 1(433) 455-431002-17-2025 Evaluation note* Diagnosis Onset Date Resolution Status Admit Date ADD (attention deficit disorder) acute August 17, 2 025 2:02pm Anxiety acute August 17, 2024 2:02pm Current smoker acute August 012024 2:02pm Family history of BRCA gene positive acute August 17, 2 025 2:02pm History of gestational diabetes mellitus (GDM) in prior , currentl acute Februa ry 2024 2:02pm History of miscarriage, currently acute August 2:02pm History of ovarian cyst acute F ebruary 2024 2:02pm Hx of section acute Fe bruary 2024 2:02pm Hx of pre-eclampsia in prior , currently acute Fe bruary 2024 2:02pm Internal derangement of left shoulder acute August 17, 2 025 2:02pm Iron deficiency anemia acute Fe bruary 2024 2:02pm Lumbar radiculopathy acute Febr uary 2024 2:02pm Marijuana use during acute August 17, 2024 2:02pm Obesity affecting acute August 17, 2024 2:02pm acute August 17, 2024 2:02pm Sacroiliitis acute August 2:02pm Supervision of high-risk acute August 17, 2 025 2:02pm Asthma chronic August 17, 2024 2:02pm ADD (attention deficit disorder) acute September 17, 2024 11:33am Anxiety acute September 17 11:33am Current smoker acute August 11:33am History of gestational diabetes mellitus (GDM) in prior , currentl acute September 17, 2024 11:33am History of miscarriage, currently acute September 17 11:33am Hx of section acute [facility] 2024 11:33am Hx of pre-eclampsia in prior , currently acute [facility] 2024 11:33am Iron deficiency anemia acute [facility] 2024 11:33am Marijuana use during acute September 17, 2024 11:33am Obesity affecting acute September 17, 2024 11:33am acute September 17 11:33am Supervision of high-risk acute September 17, 2024 11:33am ADD (attention deficit disorder) acute October 16, 2024 11:11am Anxiety acute October 16 11:11am Current smoker acute September 11:11am History of gestational diabetes mellitus (GDM) in prior , currentl acute October 16, 2024 11:11am History of miscarriage, currently acute October 16 11:11am Hx of section acute [facility] 2024 11:11am Hx of pre-eclampsia in prior , currently acute [facility] 2024 11:11am Iron deficiency anemia acute [facility] 2024 11:11am Marijuana use during acute October 16, 2024 11:11am Obesity affecting acute October 16, 2024 11:11am acute October 16 11:11am Supervision of high-risk acute October 16, 2024 11:11am ADD (attention deficit disorder) acute November 11, 2024 1 0:54am Anemia affecting acute November 11, 2024 10:54am Anxiety acute November 11, 2024 10:54am Current smoker acute November 11, 2024 10:54am Family history of BRCA gene positive acute November 11, 2024 1 0:54am History of gestational diabetes mellitus (GDM) in prior , currentl acute November 112024 10:54am History of miscarriage, currently acute November 11 10:54am History of ovarian cyst acute ay 2024 10:54am Hx of section acute Ma y 2024 10:54am Hx of pre-eclampsia in prior , currently acute Ma y 2024 10:54am Internal derangement of left shoulder acute November 11, 2024 1 0:54am Iron deficiency anemia acute Ma y 2024 10:54am Lumbar radiculopathy acute November 11, 2024 10:54am Marijuana use during acute November 11, 2024 10:54am Obesity affecting acute November 11, 2024 10:54am acute November 11, 2024 10:54am Sacroiliitis acute November 11 10:54am Supervision of high-risk acute November 11, 2024 1 0:54am Asthma chronic November 11, 2024 10:54am ADD (attention deficit disorder) acute December 09, 2024 11:01am Anemia affecting acute December 09, 2024 11:01am Anxiety acute December 09 11:01am Current smoker acute December 09, 2024 11:01am Family history of BRCA gene positive acute December 09, 2024 11:01am History of gestational diabetes mellitus (GDM) in prior , currentl acute November 292024 11:01am History of miscarriage, currently acute December 09 11:01am History of ovarian cyst acute [facility] 2024 11:01am Hx of section acute ne 2024 11:01am Hx of pre-eclampsia in prior , currently acute [facility] 2024 11:01am Internal derangement of left shoulder acute December 09, 2024 11:01am Iron deficiency anemia acute [facility] 2024 11:01am Lumbar radiculopathy acute December 09, 2024 11:01am Marijuana use during acute December 09, 2024 11:01am Obesity affecting acute December 09, 2024 11:01am acute December 09 11:01am Sacroiliitis acute December 09, 025 11:01am Supervision of high-risk acute December 09, 2024 11:01am Asthma chronic December 09 11:01am [facility] Work Phone: 1(397) 105-457701-30-2025 Telephone encounter Note* Telephone Encounter - Mila Schmidt LPN - 07/30/2024 12:03 PM EST Pt viewed her results on [employer] 07/30 Mila Schmidt LPN [facility]01-30-2025 Miscellaneous Notes* Telephone Encounter - Mila Schmidt LPN - 07/30/2024 12:03 PM EST Pt viewed her results on [employer] 07/30 Mila Schmidt LPN * Telephone Encounter - Esther Duckworth MA - 07/28/2024 7:16 PM EST Unable to reach patient. Mailbox full/Mailbox not set up/ Number incorrect. Please try again later. Esther Duckworth MA * Telephone Encounter - Juan Alberto Lockhart PA - 07/28/2024 6:05 PM EST Please let patient know she has no UTI. Follow-up with PCP for persistent symptoms documented in [facility] encounterPro[facility]25 NoteHNO ID: [id number] Author: GUY HERNANDEZ APRN.DASHBOARD DEVELOPER Service: ? Author Type: Nurse Practitioner Type: Progress Notes Filed: 07/29/2024 07:11 Note Text: OGI VIRTUAL VISIT Virtual limitations reviewed with patient, as well as possible need to travel to have diagnostic services. Patient voiced understanding. Patient seen on [employer] Video Visit platform. Location of patient: [place] I have communicated my name and active licensure. The patient's identity and physical location were verified at the time of this visit. Either the patient or their legal auto claim representative has been informed of the risks and benefits of -- and alternatives to -- treatment through a remote evaluation and consents to proceed with the evaluation remotely. CC: HPI: Parvin is and thinks LMP was 05/29/24. She went to the care center yesterday and nothing was seen on ultrasound. Her positive test was 5 days ago. 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 Positive test - ICD9: V72.42, ICD10: Z32.01 (primary diagnosis) - Requesting HCG - No bleeding, pain - Some nausea - recommend Vitamin B6 25 mg TID - Some heartburn - discussed Tums vs Pepcid - precautions reviewed. To take PNV. - RTO for new OB August 10 as scheduled 2. History of miscarriage - ICD9: V13.29, ICD10: Z87.59 - HCG QUANTITATIVE Guy Hernandez APRN.CNP Medical Decision Making: Problems: Low: Acute, uncomplicated illness or injury Data: Unique test(s) ordered: 1 Risk: Minimal: Minimal risk from testing/treatment Moderate: Drug management Medical Decision Making Level: 3 - [facility] of Present illness Narrative* Guy Hernandez APRN.CNP - 07/29/2024 7:04 AM EST OGI VIRTUAL VISIT Virtual limitations reviewed with patient, as well as possible need to travel to have diagnostic services. Patient voiced understanding. Patient seen on [employer] Video Visit platform. Location of patient: [place] I have communicated my name and active licensure. The patient's identity and physical location wereverified at the time of this visit. Either the patient or their legal auto claim representative has been informed of the risks and benefits of -- and alternatives to -- treatment through a remote evaluation andconsents to proceed with the evaluation remotely. CC: HPI: Parvin is and thinks LMP was 05/29/24. She went to the care center yesterdayand nothing was seen on ultrasound. Her positive test was 5 days ago. 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 Positive test - ICD9: V72.42, ICD10: Z32.01 (primary diagnosis) - Requesting HCG - No bleeding, pain - Some nausea - recommend Vitamin B6 25 mg TID - Some heartburn - discussed Tums vs Pepcid - precautions reviewed. To take PNV. - RTO for new OB August 10 as scheduled 2. History of miscarriage - ICD9: V13.29, ICD10: Z87.59 - HCG QUANTITATIVE Guy Hernandez APRN.CNP Medical Decision Making: Problems: Low: Acute, uncomplicated illness or injury Data: Unique test(s) ordered: 1 Risk: Minimal: Minimal risk from testing/treatment Moderate: Drug management Medical Decision Making Level: 3 - Low documented in this encounterPro[facility]01-28-[facility] Telephone encounter Note * Telephone Encounter - Esther Duckworth MA - 07/28/2024 7:16 PM EST Unable to reach patient. Mailbox full/Mailbox not set up/ Number incorrect. Please try again later. Esther Duckworth MA [facility]01-28-2025 Telephone encounter Note* Telephone Encounter - Juan Alberto Lockhart PA - 07/28/2024 6:05 PM EST Please let patient know she has no UTI. Follow-up with PCP for persistent symptoms [facility] Work Phone: 1(398) 310-779301-27-2025 Telephone encounter Note* Telephone Encounter - Irma Wilson RN - 07/27/2024 5:08 PM EST Patient is scheduled for virtual visit with on 07/29 at 7 am to discuss early concerns.Attempted to contact patient at request of provider to see if she would like to just move her New OB appointment up to be seen sooner. NOA has availability on 07/29 and CP has spot on 07/31. Left message to call office. Irma Wilson RN [facility]01-27-2025 Miscellaneous Notes* Telephone Encounter - Irma Wilson RN - 07/27/2024 5:08 PM EST Patient is scheduled for virtual visit with on 07/29 at 7 am to discuss early concerns.Attempted to contact patient at request of provider to see if she would like to just move her New OB appointment up to be seen sooner. NOA has availability on 07/29 and CP has spot on 07/31. Left message to call office. Irma Wilson RN * Telephone Encounter - Irma Wilson RN - 07/27/2024 1:56 PM EST Patient notified and voiced understanding. Virtual visit appointment scheduled per request. Irma Wilson RN * Telephone Encounter - Michelle Lundberg APRN.CNM - 07/27/2024 1:46 PM EST Please have patient schedule virtual or in person appointment to discuss and can order at that time. Thanks, Michelle Lundberg APRN.CNM * Telephone Encounter - Roxana Turpin RN - 07/27/2024 9:28 AM EST LMP 05/29/24 - 8w3d Calling requesting hcg quants. Not having any pain, bleeding, cramping or other concerns. Had miscarriage in March of last year and is very anxious (did not see this office for that missed ab- saw [facility], but they no longer accept her insurance). NOB scheduled for 08/10/24. Roxana Turpin RN documented in this encounterPro[facility]01-27-2025 Telephone encounter Note * Telephone Encounter - Irma Wilson RN - 07/27/2024 1:56 PM EST Patient notified and voiced understanding. Virtual visit appointment scheduled per request. Irma Wilson RN [facility]01-27-2025 Telephone encounter Note* Telephone Encounter - Michelle Lundberg APRN.CNM - 07/27/2024 1:46 PM EST Please have patient schedule virtual or in person appointment to discuss and can order at that time. Thanks, Michelle Lundberg APRN.CNM [facility]01-27-2025 NoteHNO ID: [id number] Author: PERRY DELCID APRN.CNP Service: ? Author Type: Nurse Practitioner Type: Progress Notes Filed: 07/27/2024 13:41 Note Text: CC: Patient presents with: Urinary Frequency: burning with urination x 1 day Denies risk of std, patient is not sure how far along she is. Is trying to get established with an OB. HPI Parvin Allen is a 28 year old female who presents with complaint of possible UTI. These symptoms have been present for 1 days. Associated symptoms: burning and frequency Denies: backpain, hematuria, pressure, fever, chills, sweats, abdominal pain, and flank pain Treatments: antibiotics The ROS was otherwise negative. PMH, Medications, labs, allergies, and recent past visits with PCP were reviewed and updated as able. PHYSICAL EXAM: BP 110/68 Pulse 84 Temp 36.9 ?C (98.5 ?F) Resp 16 Wt 102.6 kg (226 lb 3.1 oz) LMP 06/30/2024 (Exact Date) SpO2 99% BMI 41.10 kg/m? General: Well appearing and alert CV: Regular rate and rhythm without obvious murmur Lungs: clear to auscultation bilaterally Back: straight and symmetric Abdomen: soft, nontender, nondistended PAST MEDICAL HISTORY Diagnosis Date Anemia Anxiety [...] has no known allergies. MEDICATIONS albuterol HFA (VENTOLIN HFA) 90 mcg/actuation inhaler Inhale 2 Puffs as instructed every 4 hours as needed for Wheezing/Shortness of Breath. FAMILY HISTORY Problem Relation Age of Onset [...] Never Smokeless tobacco: Never Vaping Use Vaping status: Never Used Substance Use Topics Alcohol use: No Drug use: No ASSESSMENT/PLAN: 1. Urinary frequency - ICD9: 788.41, ICD10: R35.0 - UA DIP, URINE (POC) - BACTERIAL CULTURE, URINE Treatment was given today. If patient is positive after urine culture comes back for UTI please treat accordingly. Keflex is good UTI antibiotic for . . Potential red flag symptoms discussed with the patient. Reviewed appropriate action plan to take if red flag symptoms occur. Patient agreeable to treatment plan. Perry Delcid APRN.[facility]01-27-2025 History of Present illness Narrative* Perry Delcid APRN.[facility] - 07/27/2024 1:40 PM EST CC: Patient presents with: Urinary Frequency: burning with urination x 1 day Denies risk of std, patient is not sure how far along she is. Is trying to get establishedwith an OB. HPI Parvin Allen is a 28 year old female who presents with complaint of possible UTI. These symptoms have been present for 1 days. Associated symptoms: burning and frequency Denies: backpain, hematuria, pressure, fever, chills, sweats, abdominal pain, and flank pain Treatments: antibiotics The ROS was otherwise negative. PMH, Medications, labs, allergies, and recent past visits with PCP were reviewed and updated as able. PHYSICAL EXAM: BP 110/68 Pulse 84 Temp 36.9 C (98.5 F) Resp 16 Wt 102.6 kg (226 lb 3.1 oz) LMP 06/30/2024 (Exact Date) SpO2 99% BMI 41.10 kg/m General: Well appearing and alert CV: Regular rate and rhythm without obvious murmur Lungs: clear to auscultation bilaterally Back: straight and symmetric Abdomen: soft, nontender, nondistended PAST MEDICAL HISTORY Diagnosis Date Anemia Anxiety [...] has no known allergies. MEDICATIONS albuterol HFA (VENTOLIN HFA) 90 mcg/actuation inhaler Inhale 2 Puffs as instructed every 4 hours asneeded for Wheezing/Shortness of Breath. FAMILY HISTORY Problem Relation Age of Onset [...] Never Smokeless tobacco: Never Vaping Use Vaping status: Never Used Substance Use Topics Alcohol use: No Drug use: No ASSESSMENT/PLAN: 1. Urinary frequency - ICD9: 788.41, ICD10: R35.0 - UA DIP, URINE (POC) - BACTERIAL CULTURE, URINE Treatment was given today. If patient is positive after urine culture comes back for UTI please treat accordingly. Keflex is good UTI antibiotic for . . Potential red flag symptoms discussed with the patient. Reviewed appropriate action plan to take if red flag symptoms occur. Patient agreeable to treatment plan. Perry Delcid APRN.DASHBOARD DEVELOPER documented in this encounterProtest[facility]01-27-2025 Telephone encounter Note * Telephone Encounter - Roxana Turpin RN - 07/27/2024 9:28 AM EST LMP 05/29/24 - 8w3d Calling requesting hcg quants. Not having any pain, bleeding, cramping or other concerns. Had miscarriage in March of last year and is very anxious (did not see this office for that missed ab- corina [facility], but they no longer accept her insurance). NOB scheduled for 08/10/24. Roxana Turpin RN [facility]01-02-2025 NoteHNO ID: [id number] Author: JUAN ALBERTO LOCKHART PA Service: ? Author Type: Physician Brush Material Preparer Type: Progress Notes Filed: 07/02/2024 09:41 Note Text: This note was created using [employer]. Subjective Parvin Allen is a 28 year old female. HPI 28-year-old female presents for dental pain. Patient states that she broke off her tooth about 2 weeks ago. She states that her gum is now swollen and painful over the past 3 days. She denies any fevers. Still able to eat and drink. She states that she does have a dentist, but they do not pull teeth, so she is waiting to get into an oral surgeon. She denies any other complaint. Not or breast-feeding PAST MEDICAL HISTORY Diagnosis Date Anemia Anxiety [...] has no known allergies. MEDICATIONS albuterol HFA (VENTOLIN HFA) 90 mcg/actuation inhaler Inhale 2 Puffs as instructed every 4 hours as needed for Wheezing/Shortness of Breath. amoxicillin-clavulanate potassium (AUGMENTIN) 875-125 mg per tablet Take 1 tablet by mouth two times a day for 7 days. FAMILY HISTORY Problem Relation Age of [...] Never Smokeless tobacco: Never Vaping Use Vaping status: Never Used Substance Use Topics Alcohol use: No Drug use: No Review of Systems Constitutional: Negative for chills and fever. HENT: Positive for dental problem. Negative for congestion, ear pain and sore throat. Respiratory: Negative for cough and shortness of breath. Cardiovascular: Negative for chest pain. Gastrointestinal: Negative for diarrhea and vomiting. Objective BP 114/77 Pulse 70 Temp 36.7 ?C (98.1 ?F) Resp 18 Wt 103 kg (227 lb 1.2 oz) LMP 06/30/2024 (Exact Date) SpO2 100% BMI 41.26 kg/m? Physical Exam Vitals and nursing note reviewed. Constitutional: General: She is not in acute distress. Appearance: Normal appearance. She is not toxic-appearing. HENT: Nose: Nose normal. Mouth/Throat: Mouth: Mucous membranes are moist. Dentition: Abnormal dentition. Dental tenderness, gingival swelling and dental caries present. No dental abscesses. Pharynx: Oropharynx is clear. Uvula midline. Comments: Patient has broken tooth #30. Dental decay in this tooth. Surrounding gingival swelling. No abscess. No tongue or floor of mouth swelling. Throat clear. Eyes: Conjunctiva/sclera: Conjunctivae normal. Cardiovascular: Rate and Rhythm: Normal rate and regular rhythm. Pulmonary: Effort: Pulmonary effort is normal. Breath sounds: Normal breath sounds. Skin: General: Skin is warm and dry. Neurological: Mental Status: She is alert. Assessment and Plan ASSESSMENT/PLAN: 1. Dental infection - ICD9: 522.4, ICD10: K04.7 -Rx for Augmentin -Tylenol/Motrin for pain. -Ice -Schedule follow-up with your dentist. Diagnosis and treatment plan were discussed and questions were answered to the patient's satisfaction. Pt acknowledged understanding of concepts and follow up plan. Specific signs and symptoms that would indicate the need for higher level of care were discussed in detail warranting prompt ER evaluation. Juan Alberto Lockhart [facility]01-02-2025 History of Present illness Narrative* Juan Alberto Lockhart, PA - 07/02/2024 9:40 AM EST Images from the original note were not included. This note was created using OnStateter. Subjective Parvin Allen is a 28 year old female. HPI 28-year-old female presents for dental pain. Patient states that she broke off her tooth about 2 weeks ago. She states that her gum is now swollen and painful over the past 3 days. She denies anyfevers. Still able to eat and drink. She states that she does have a dentist, but they do not pull teeth, so she is waiting to get into an oral surgeon. She denies any other complaint. Not or breast-feeding PAST MEDICAL HISTORY Diagnosis Date Anemia Anxiety [...] has no known allergies. MEDICATIONS albuterol HFA (VENTOLIN HFA) 90 mcg/actuation inhaler Inhale 2 Puffs as instructed every 4 hours asneeded for Wheezing/Shortness of Breath. amoxicillin-clavulanate potassium (AUGMENTIN) 875-125 mg per tablet Take 1 tablet by mouth two times a day for 7 days. FAMILY HISTORY Problem Relation Age of [...] Never Smokeless tobacco: Never Vaping Use Vaping status: Never Used Substance Use Topics Alcohol use: No Drug use: No Review of Systems Constitutional: Negative for chills and fever. HENT: Positive for dental problem. Negative for congestion, ear pain and sore throat. Respiratory: Negative for cough and shortness of breath. Cardiovascular: Negative for chest pain. Gastrointestinal: Negative for diarrhea and vomiting. Objective BP 114/77 Pulse 70 Temp 36.7 C (98.1 F) Resp 18 Wt 103 kg (227 lb 1.2 oz) LMP 06/30/2024 (Exact Date) SpO2 100% BMI 41.26 kg/m Physical Exam Vitals and nursing note reviewed. Constitutional: General: She is not in acute distress. Appearance: Normal appearance. She is not toxic-appearing. HENT: Nose: Nose normal. Mouth/Throat: Mouth: Mucous membranes are moist. Dentition: Abnormal dentition. Dental tenderness, gingival swelling and dental caries present. No dental abscesses. Pharynx: Oropharynx is clear. Uvula midline. Comments: Patient has broken tooth #30. Dental decay in this tooth. Surrounding gingival swelling. No abscess. No tongue or floor of mouth swelling. Throat clear. Eyes: Conjunctiva/sclera: Conjunctivae normal. Cardiovascular: Rate and Rhythm: Normal rate and regular rhythm. Pulmonary: Effort: Pulmonary effort is normal. Breath sounds: Normal breath sounds. Skin: General: Skin is warm and dry. Neurological: Mental Status: She is alert. Assessment and Plan ASSESSMENT/PLAN: 1. Dental infection - ICD9: 522.4, ICD10: K04.7 -Rx for Augmentin -Tylenol/Motrin for pain. -Ice -Schedule follow-up with your dentist. Diagnosis and treatment plan were discussed and questions were answered to the patient's satisfaction. Pt acknowledged understanding of concepts and follow up plan. Specific signs and symptoms that would indicate the need for higher level of care were discussed in detail warranting prompt ER evaluation. MICHAEL Null [facility] Discharge instructions Patient Education 11/12/2023 10:08:17 Ankle Sprain (Adult) Ankle Sprain (Adult) An ankle sprain is a stretching or tearing of the ligaments that hold the ankle joint together. There are no broken bones. An ankle sprain is a common injury for both children and adults. It happens when the ankle turns, twists, or rolls in an awkward way. This can be caused by a sports injury. Or it can happen from doing something as simple as stepping on an uneven surface. Ligaments are made of tough connective tissue. Normally, ligaments stretch a certain amount and then go back to their normal place. A sprain happens when a ligament is forced to stretch more than thenormal amount. A severe sprain can actually tear the ligaments. If you have a severe sprain, you may have felt or heard something like a pop when you were injured. Ankle sprains are given a grade depending on whether they are mild, moderate, or severe: Grade 1 sprain. A mild sprain with minor stretching and damage to the ligament. Grade 2 sprain. A moderate sprain where the ligament is partly torn. Grade 3 sprain. The most severe kind of sprain. The ligament is completely torn. Most sprains take about 4 to 6 weeks to heal. A severe sprain can take several months to recover. Your healthcare provider may order X-rays to be sure you don t have a fracture, or broken bone. The injured area will feel sore. Swelling and pain may make it hard to walk. You may need crutches if walking is painful. Or your provider may have you use a cast boot or air splint. This will dependon the grade of ankle sprain that you have. Home care For a Grade 1 sprain, use RICE (rest, ice, compression, and elevation): Rest your ankle. Don t walk on it. Ice should be used right away to help control swelling. Place an ice pack over the injured area for20 minutes. Do this every 3 to 6 hours for the first 24 to 48 hours. Keep using ice packs to ease pain and swelling as needed. To make an ice pack, put ice cubes in a plastic bag that seals at the top. Wrap the bag in a clean, thin towel or cloth. Never put ice or an ice pack directly on the skin. The ice pack can be put right on the cast, bandage, or splint. As the ice melts, be careful that thecast, bandage, or splint doesn t get wet. If you have a boot, open it to apply an ice pack, unless told otherwise by your provider. Compression devices help to control swelling. They also keep the ankle from moving and support yourinjured ankle. These devices include dressings, bandages, and wraps. Elevate or raise your ankle above the level of your heart when sitting or lying down. This is very important for the first 48 hours. Follow the RICE guidelines for a Grade 2 sprain. This type of sprain will take longer to heal. Yourprovider may have you wear a splint, cast, or brace to keep your ankle from moving. If you have a Grade 3 sprain, you are at risk for long-term ankle instability. In rare cases, surgery may be needed. Your provider may have you wear a short leg cast or a walking boot for 2 to 3 weeks. After 48 hours, it may be helpful to apply heat for 20 minutes several times a day. You can do thiswith a heating pad or warm compress. Or you may want to go back and forth between using ice and heat. Never apply heat directly to the skin. Always wrap the heating pad or warm compress in a clean, thin towel or cloth. You may use svgx-whr-vwizsba pain medicine (NSAIDS or nonsteroidal anti- inflammatory drugs) to control pain, unless another pain medicine was prescribed. Talk with your provider before using these medicines if you have chronic liver or kidney disease, or have ever had a stomach ulcer or gastrointestinal bleeding. Follow any rehabilitation exercises your provider gives you. These can help you be more flexible and improve your balance and coordination. This is helpful in preventing long-term ankle problems. Prevention To help prevent ankle sprains, it s important to have good strength, balance, and flexibility. Be sure to: Always warm up before you exercise or do something very active Be careful when walking or running on uneven or cracked surfaces Wear shoes that are in good condition and fit well Listen to your body s signals to slow down when you are in pain or tired Follow-up care Any X-rays you had today don t show any broken bones, breaks, or fractures. Sometimes fractures dont show up on the first X-ray. Bruises and sprains can sometimes hurt as much as a fracture. These injuries can take time to heal completely. If your symptoms don t get better or they get worse, talk with your healthcare provider. You may need a repeat X-ray. Follow up with your healthcare provider, or as advised. Check for any warning signs listed below. When to seek medical advice Call your healthcare provider right away if any of these occur: Fever of 100.4 F (38 C) or higher, or as directed by your healthcare provider Chills The injury doesn t seem to be healing The swelling comes back The cast or splint has a bad smell The plaster cast or splint gets wet or soft The fiberglass cast or splint gets wet and does not dry for 24 hours The pain or swelling increases, or redness appears Your toes become cold, blue, numb, or tingly The skin is discolored (looks blue, purple, or ward), has blisters, or is irritated You re-injure your ankle 1389-9926 [employer]. [address] [place] [address]. All rights reserved. This information is not intended as a substitute for professional medical care. Always follow yourhealthcare professional's instructions. Follow Up Care 11/12/2023 09:27:36 With:AKIN NAIR DPM, Surgery Address: [address] [place], [place] [address], [address] [facility] [place], [place] [id number]- When:2-4 days With:Call Physician Referral Address:Unknown When:2-4 days [facility] 05-14-2024 Note Discharge Instructions Thank you for allowing [facility] to assist you with your healthcare needs. The following is importantdischarge information regarding your hospital visit. Diagnosis from Today's Visit Ankle pain Foot pain-swelling What to Do Next Instructions from Your Care Team Discharge Home Equipment - Ordered -- Crutches, 99 month(s), 11/12/23 10:09:00 EDT Post Acute Orders No qualifying data available. You Need to Schedule the Following Appointments Follow Up with AKIN NAIR DPM, Surgery When Within 2-4 days [facility] [address] [facility] [place] [address]- Follow Up with Call Physician Referral When Within 2-4 days Allergies NKA Medications Please ask your primary doctor or pharmacist before taking any other medication not listed, including over the counter drugs, herbal medications, vitamins and or supplements as they may interact withyour home medications. What How Much When Why Instructions Last Dose New acetaminophen-hydrocodone (Hext 325- 5 mg oral tablet) 1 tab(s) by mouth Every 6 hours as needed for as needed for pain Ankle pain Duration: 3 Days Printed Prescription Unchanged meloxicam (Mobic 15 mg oral tablet) 1 tab(s) by mouth Once a day Pain in left foot Chronic radicular lumbar pain Duration: 30 Days Unchanged omeprazole (omeprazole 40 mg oral delayed release capsule) 1 cap by mouth Once a day GERD (gastroesophageal reflux disease) Please take this list to your next doctor s visit. Bring all medications you take, including over the counter medications, herbals and other supplements with you to your doctor s visit. Patients and families are reminded to discard old lists and to update any records with all medication providers or retail pharmacies. Education Materials Ankle Sprain (Adult) An ankle sprain is a stretching or tearing of the ligaments that hold the ankle joint together. There are no broken bones. An ankle sprain is a common injury for both children and adults. It happens when the ankle turns, twists, or rolls in an awkward way. This can be caused by a sports injury. Or it can happen from doing something as simple as stepping on an uneven surface. Ligaments are made of tough connective tissue. Normally, ligaments stretch a certain amount and then go back to their normal place. A sprain happens when a ligament is forced to stretch more than thenormal amount. A severe sprain can actually tear the ligaments. If you have a severe sprain, you may have felt or heard something like a pop when you were injured. Ankle sprains are given a grade depending on whether they are mild, moderate, or severe: Grade 1 sprain. A mild sprain with minor stretching and damage to the ligament. Grade 2 sprain. A moderate sprain where the ligament is partly torn. Grade 3 sprain. The most severe kind of sprain. The ligament is completely torn. Most sprains take about 4 to 6 weeks to heal. A severe sprain can take several months to recover. Your healthcare provider may order X-rays to be sure you don t have a fracture, or broken bone. The injured area will feel sore. Swelling and pain may make it hard to walk. You may need crutches if walking is painful. Or your provider may have you use a cast boot or air splint. This will dependon the grade of ankle sprain that you have. Home care For a Grade 1 sprain, use RICE (rest, ice, compression, and elevation): Rest your ankle. Don t walk on it. Ice should be used right away to help control swelling. Place an ice pack over the injured area for20 minutes. Do this every 3 to 6 hours for the first 24 to 48 hours. Keep using ice packs to ease pain and swelling as needed. To make an ice pack, put ice cubes in a plastic bag that seals at the top. Wrap the bag in a clean, thin towel or cloth. Never put ice or an ice pack directly on the skin. The ice pack can be put right on the cast, bandage, or splint. As the ice melts, be careful that thecast, bandage, or splint doesn t get wet. If you have a boot, open it to apply an ice pack, unless told otherwise by your provider. Compression devices help to control swelling. They also keep the ankle from moving and support yourinjured ankle. These devices include dressings, bandages, and wraps. Elevate or raise your ankle above the level of your heart when sitting or lying down. This is very important for the first 48 hours. Follow the RICE guidelines for a Grade 2 sprain. This type of sprain will take longer to heal. Yourprovider may have you wear a splint, cast, or brace to keep your ankle from moving. If you have a Grade 3 sprain, you are at risk for long-term ankle instability. In rare cases, surgery may be needed. Your provider may have you wear a short leg cast or a walking boot for 2 to 3 weeks. After 48 hours, it may be helpful to apply heat for 20 minutes several times a day. You can do thiswith a heating pad or warm compress. Or you may want to go back and forth between using ice and heat. Never apply heat directly to the skin. Always wrap the heating pad or warm compress in a clean, thin towel or cloth. You may use nidy-lhs-xnsiptb pain medicine (NSAIDS or nonsteroidal anti- inflammatory drugs) to control pain, unless another pain medicine was prescribed. Talk with your provider before using these medicines if you have chronic liver or kidney disease, or have ever had a stomach ulcer or gastrointestinal bleeding. Follow any rehabilitation exercises your provider gives you. These can help you be more flexible and improve your balance and coordination. This is helpful in preventing long-term ankle problems. Prevention To help prevent ankle sprains, it s important to have good strength, balance, and flexibility. Be sure to: Always warm up before you exercise or do something very active Be careful when walking or running on uneven or cracked surfaces Wear shoes that are in good condition and fit well Listen to your body s signals to slow down when you are in pain or tired Follow-up care Any X-rays you had today don t show any broken bones, breaks, or fractures. Sometimes fractures dont show up on the first X-ray. Bruises and sprains can sometimes hurt as much as a fracture. These injuries can take time to heal completely. If your symptoms don t get better or they get worse, talk with your healthcare provider. You may need a repeat X-ray. Follow up with your healthcare provider, or as advised. Check for any warning signs listed below. When to seek medical advice Call your healthcare provider right away if any of these occur: Fever of 100.4 F (38 C) or higher, or as directed by your healthcare provider Chills The injury doesn t seem to be healing The swelling comes back The cast or splint has a bad smell The plaster cast or splint gets wet or soft The fiberglass cast or splint gets wet and does not dry for 24 hours The pain or swelling increases, or redness appears Your toes become cold, blue, numb, or tingly The skin is discolored (looks blue, purple, or ward), has blisters, or is irritated You re-injure your ankle [id number] [employer]. [address] [place] [address]. All rights reserved. This information is not intended as a substitute for professional medical care. Always follow yourhealthcare professional's instructions. Additional Information VACCINATE! IT SAVES LIVES! Members of the community who have not yet received the COVID-19 vaccine and would like to receive it can visit one of [facility] vaccine clinics. There are many vaccine clinic locations within the [facility]. For locations and available times, please visit www.gettheshot.coronavirus.[place].gov/. It is important to note that some COVID mobile vaccine clinics are held outdoors and may be canceled in rainy or stormy conditions. To learn more about pediatric vaccinations (ages 5-11), we invite you to visit the [facility] webpage. https://www.[email or web address].org/pages/1451-Hassf-Ciuhwemncjg-Ypfubfxdxb-Qjhha-Ewd stions.htmlTo learn more about the COVID-19 vaccine, we invite you to visit the CDC website for a list of frequently asked questions. https://www.cdc.gov/coronavirus/2019-ncov/vaccines/faq.html [facility] Patient Portal Access Instructions: Stay connected with your healthcare team and access your personal medical information anytime with the [facility] Patient Portal. If you would like a full copy of your medical records please contact the [facility] Medical Records Department Saturday through Saturday between 8a.m. and 4:30p.m. Please follow the directions below to access the portal: 1.Access the email account you provided upon registration to the hospital.2.Look for an invitation email from [facility].3.Open the email and access the invitation link: Accept Invitation to [facility]4.Fill in the required robert to create your account. Sign into [email or web address] with your username and password that you created in the above steps to stay up to date. You can then view a summary of results, a summary of your visits, and the ability to download your summaries to your computer or send the information securely to a physician. Remember that your healthcare information is confidential, so carefully consider who you will allow to register on the [facility] Patient Portal for access to your information. You can also access the [facility] Patient Portal on the [employer] lacho. Simply click on Health Records under [employer] and then click on the [facility] logo. HOW TO SAFELY DISPOSE OF PRESCRIPTION MEDICATIONS Please use one of the following methods to safely dispose of your unused medications. 1.Use a drug disposal kit: the drug disposal pouch allows you to safely discard your old and unuseddrugs. Ask your nurse to give you one when you are discharged.2.Visit a local take-back location: Many local pharmacies and police departments have programs that collect old and unwanted prescriptiondrugs. Call your local pharmacy or go to http://[employer]/1X9Sh9b to find one close to you.3.Make use of household items: Use cat litter or old coffee grounds to dispose medications if other options arenot available. Mix your drugs with these household products, seal them in an airtight container andthrow it into the garbage. Call [facility]: [phone] to be sure your drugs can be disposed of in this way. Some medicines may require a different approach.4.Never flush your medications down the toilet. IF YOU HAVE BEEN PRESCRIBED AN OPIOIDS FOR PAIN If you have been prescribed an opioid (such as hydrocodone, oxycodone or morphine), it is critical to understand the possible side effects and risks of opioid pain medications. Even when taken as directed, opioids can have several side effects including: Tolerance, meaning you might need to take more of a medication for the same pain relief. Nausea, vomiting and/or constipation. Sleepiness, dizziness, dry mouth, confusion, depression or itching. Physical dependence, meaning you have withdrawal symptoms when a medication is stopped ? this can develop within a few days. KNOW YOUR RESPONSIBILITIES It is important to know exactly how much and how often to take the opioid pain medications you are prescribed. Never take opioids in higher amounts or more often than prescribed. Do not combine opioids with alcohol or other drugs that cause drowsiness, such as benzodiazepines, also known as benzos,including diazepam and alprazolam, muscle relaxants or sleep aids. Never sell or share prescriptionopioids. This is illegal. Store opioids in a secure place and out of reach of others (including children, family, friends and visitors). The last page(s) of this document has been signed and retained as a CHART COPY Signatures Patient Education Materials Ankle Sprain (Adult) Medication Leaflets My discharge plan and instructions have been reviewed and explained to me and IMELISSA MOLLY M understand my current condition and have read and understand these discharge instructions. I have received a written copy of the plan/instructions. If I have questions, I am aware that I should contact my doctor. 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 Slight cortical thickening at this location may reflect the sequela of remote trauma. Redemonstrated are mild plantar and retrocalcaneal degenerative enthesopathy changes. No significant soft tissue swelling. IMPRESSION: Previously seen cortical discontinuity involving the posterior talar process is less suspicious for fracture. Slight cortical thickening at this location may reflect the sequela of remote trauma. Interpreted by: Earle Martin MD Preliminary Report By: Earle Martin MD Electronically signed By Earle Martin MD Dictated Date: 11/12/2023 10:33:17 AM Prelim Date: 11/12/2023 10:35:33 AM Sign Date: 11/12/2023 10:35:33 AM Ordering Provider: [facility]05-14-2024 Note ORIGINAL EXAMINATION: THREE XRAY VIEWS OF THE LEFT ANKLE11/12/2023 9:49 am COMPARISON: None. HISTORY: ORDERING SYSTEM PROVIDED HISTORY: Reason for Exam: Lateral ankle pain FINDINGS: Cortical discontinuity involving the posterior talar process is seen on the lateral view. No significant soft tissue swelling or joint effusion. Small posterior and plantar calcaneal enthesophyte. The joint spaces are preserved and normal alignment. No appreciable widening of the ankle mortise. No suspicious osseous lesion. IMPRESSION: Cortical discontinuity involving the posterior talar process seen on the lateral view. The lateral view is slightly suboptimal. This may reflect a nondisplaced fracture or os trigonum. A repeat lateral view was requested by this radiologist. An addendum will be generated once completed. I have personally reviewed the images of this examination and agree with the resident's findings and interpretation. Interpreted by: Earle Martin MD Preliminary Report By: Korin Bailey Electronically signed By Earle Martin MD Dictated Date: 11/12/2023 9:55:21 AM Prelim Date: 11/12/2023 10:08:39 AM Sign Date: 11/12/2023 10:08:39 AM Ordering Provider: [facility]03-04-2024 History of Present illness Narrative* Gwen Kaur PA-C - 09/02/2023 9:17 AM EST This note was created using [employer]. Subjective Parvin Allen is a 27 year old female. HPI Patient presents with sore throat, headache, ear pain for 1 day. No fever. She denies cough or runny nose. Denies strep exposure recently. She has had a tonsillectomy. No vomiting or diarrhea. She did try Tylenol [id number]. Review of Systems Constitutional: Negative. HENT: Positive for ear pain and sore throat. Negative for congestion, postnasal drip, rhinorrhea, sinus pressure and sinus pain. Respiratory: Negative for cough. Cardiovascular: Negative. Gastrointestinal: Negative. Genitourinary: Negative. Musculoskeletal: Negative. Skin: Negative. Neurological: Positive for headaches. All other systems reviewed and are negative. [...] 2 Puffs as instructed every 4 hours asneeded for Wheezing/Shortness of Breath. 1 Each 4 amoxicillin (AMOXIL) 500 mg capsule Take 1 capsule by mouth two times a day for 10 days. 20 capsule0 cyclobenzaprine (FLEXERIL) 10 mg tablet Take 1 tablet by mouth three times daily as needed. (Patient not taking: Reported on 08/24/2022) 15 tablet 0 benzonatate (TESSALON PERLES) 100 mg capsule Take 2 capsules by mouth three times daily as needed. (Patient not taking: Reported on 07/16/2022) 30 capsule 0 medroxyPROGESTERone (PROVERA) 10 mg tablet Take 1 tablet by mouth as directed. Take daily x 10 daysas needed to start menses. (Patient not taking: [...] use: No Drug use: No Objective BP 126/80 Pulse 108 Temp 36.7 C (98 F) Resp 18 Wt 101.6 kg (224 lb) LMP 04/28/2022 ZvC910% BMI 40.70 kg/m Physical Exam Vitals reviewed. Constitutional: Appearance: Normal appearance. HENT: Head: Normocephalic and atraumatic. Right Ear: Tympanic membrane, ear canal and external ear normal. Left Ear: Tympanic membrane, ear canal and external ear normal. Nose: Nose normal. Mouth/Throat: Mouth: Mucous membranes are moist. Pharynx: Posterior oropharyngeal erythema present. No oropharyngeal exudate. Comments: Tonsils surgically absent Cardiovascular: Rate and Rhythm: Normal rate and regular rhythm. Heart sounds: Normal heart sounds. Pulmonary: Effort: Pulmonary effort is normal. Breath sounds: Normal breath sounds. Musculoskeletal: Cervical back: Neck supple. Lymphadenopathy: Cervical: Cervical adenopathy present. Skin: General: Skin is warm and dry. Findings: No rash. Neurological: Mental Status: She is alert. Assessment and Plan ASSESSMENT/PLAN: 1. Strep throat - ICD9: 034.0, ICD10: J02.0 - Group A strep molecular testing positive - Amoxicillin for 10 days. - Discussed supportive care treatment with fluids, rest and analgesia. - Contagious dz precautions discussed- including considered contagious until on antibiotics for 24 hours Gwen Kaur PA-C [facility] Discharge summary Author Jeremiah Edmondson [facility] February 07, 2023 7:31pm Note Date/Time February 07, 2023 6: 03pm [facility] Medical Records Department [address] [place] [id number] Emergency Department Summary 02/07/23 MR#: [id number] Acct: [id number] Name: PARVIN ALLEN Rep #:[id number] : 1995 27 From: Jeremiah Edmondson DO PCP: CHRISTEL Augustine tus:REG ER Location: ED HPI History of Present Illness Chief Complaint: Back Narrative Narrative: 27-year-old female presenting with lumbar radiculopathy symptoms. She has had this for weeks now. She has been seen in the ER and by her primary care physician. She is on meloxicam. She states is not helping. Patient having trouble walking and getting around. She notes he has not had any direct trauma. No loss of bladder or bowel control. No saddle anesthesia/paresthesia. No urinary symptoms. Patient does have history of kidney stones. She states the pain is in her right lumbar paraspinal musculature and radiates into her glutealregion. Patient also states that her right hip is now starting to pop when she walks. She denies any trauma to the right hip. [facility] Medical History Acute otitis externa of right ear ADD (attention deficit disorder) Anemia Anxiety Asthma Asthma Cholelithiasis Elevated d-dimer Infected dental caries Internal derangement of left shoulder Low iron Marijuana use Non-smoker Physical exam, pre-employment Restless legs Shortness of breath on exertion Wears glasses Home Medications albuterol 90 mcg/actuation aerosol inhaler 90 mcg inhalation PRN SOB 01/15/23 [History Last Taken Unknown] bismuth subsalicylate 525 mg tablet 525 mg PO TID 2 weeks #42 tabs 01/28/23 [Rx Last Taken Unknown] clarithromycin 500 mg tablet 500 mg PO BID 2 weeks #28 tabs 01/28/23 [Rx Last Taken Unknown] metronidazole 500 mg tablet 500 mg PO BID 14 days #28 tabs 01/28/23 [Rx Last Taken Unknown] pantoprazole 40 mg tablet,delayed release (Protonix) 40 mg PO BID #42 tabs 01/28/23 [Rx Last Taken Unknown] prednisone 50 mg tablet 50 mg PO DAILY #3 tabs 02/07/23 [Rx Last Taken Unknown] tramadol 50 mg tablet 50 mg PO Q8H PRN pain 3 days #12 tabs 02/07/23 [Rx Last Taken Unknown] Allergy/AdvReac Type Severity Reaction Status Date / Time No Known Allergies Allergy Verified 02/07/23 17:37 Family History Aunt Breast cancer, Onset Age: 50 Grandfather Diabetes Grandmother Diabetes Surgical History History of History of tonsillectomy Hx laparoscopic cholecystectomy Social History household members: spouse number of children: 2 current occupational status: unemployed current occupation: unemployed pets and animals: Yes pets and animals: cat(s) and dog(s) sexually active: Yes Smoking Status: Never smoker alcohol intake: current alcohol intake frequency: holidays/special occasions only substance use type: does not use, former substance user Date of last use: smokes marijuana and marijuana what type of physical activity do you participate in: none seatbelt use: always do you feel safe at home: Yes additional social history: - Brandone ROS ROS ED Constitutional Constitutional ED: Denies chills, fever(s) or sweats Eyes Eyes: Denies blurry vision or change in vision ENT ENT ED: Denies ear pain or sore throat Cardiovascular Cardiovascular: Denies chest pain, palpitations or racing heartbeat Respiratory/Chest Respiratory/Chest: Denies cough, dyspnea or sputum Gastrointestinal Gastrointestinal: Denies abdominal pain, constipation, diarrhea, nausea or vomiting Genitourinary Genitourinary ED: Denies dysuria, hematuria or urinary frequency Musculoskeletal Musculoskeletal: Reports back pain; Denies arthralgias, myalgias or neck pain Integumentary Denies abscess, Abrasions or rash Neurologic Neurologic: Denies headache(s), paresthesias or weakness Psychiatric Psychiatric: Denies anxiety, depression, suicidal ideation or suicidal thoughts Endocrine Endocrinology: Denies polydipsia or polyuria EXAM Physical Exam Const Vital Signs: 02/07/23 17:35 Temperature 97.4 F L Temperature Source Temporal Pulse Rate 93 Respiratory Rate 17 Blood Pressure 124/89 H Blood Pressure Mean 100 Pulse Ox 100 Oxygen Delivery Method Room Air Positive well nourished General Appearance ED: NAD HEENT Reports moist mucous membranes Resp normal respiratory effort Cardio regular rate and regular rhythm GI normal to inspection, nondistended, normoactive bowel sounds Back/Spine Back/Spine Narrative: Right lumbar paraspinal musculature tenderness. This radiates into the right gluteal region. No midline deformities or step-offs. Extremity normal to inspection MDM MDM MDM Narrative Medical decision making narrative: Patient presenting with back and hip pain. Differential includes compression fracture, degenerative disc disease, lumbar radiculopathy, arthritis. Patient medicated with Hext. Obtained a urinalysis which is negative for infection andblood. CT of the lumbar spine and pelvis were obtained and this only shows at L4-L5 disc causing mild stenosis, mild protrusions at L3-L4 and L5-S1 as well. I gave the patient a prescription for Ultram. She is to follow-up with her PCP as he ordered physical therapy today for her to start. Precautions discussed. Impression: 1. L4-L5 disc protrusion 2. L3-L4 disc protrusion 3. L5-S1 disc 4. Right hip pain Lab Data Attestation: I reviewed the patient's lab results. Labs: Laboratory Results - last 24 hr 02/07/23 18:15 Urine Color Yellow Urine Clarity Sl. Cloudy Urine pH 6.0 Ur Specific [place] 1.020 Urine Protein 30 H Urine Glucose (UA) Normal Urine Ketones 5 H Urine Occult Blood Negative Urine Nitrite Negative Urine Bilirubin Negative Urine Urobilinogen Normal Ur Leukocyte Esterase 500 H Urine RBC 0 SEEN Urine WBC 10-25 SEEN Ur Squamous Epith Cells 10-25 SEEN Urine Bacteria 1+ Urine Mucus 0 SEEN Radiography Diagnostic Testing: Clinical Impression(s) from Imaging Studies Lumbar Spine CT 02/07/23 17:59 IMPRESSION: No evidence of fracture. Moderate L4-5 disc protrusion causing mild canal stenosis. Small protrusions at L3-4 and L5-S1. Electronically Signed: Shelly Mayfield MD at 18:53 EDT Reading Location ID and State: [place] / Tel , Service support , Pelvis CT 02/07/23 17:59 IMPRESSION: No evidence of pelvic fracture. L4-5 disc protrusion. Electronically Signed: Shelly Mayfield MD at 18:46 EDT Reading Location ID and State: [place] / Tel , Service support , Discharge Plan Triage Chief Complaint: Back ED Provider: Jeremiah Edmondson Dx/Rx/DC Orders Instructions: Understanding Lumbar Radiculopathy Prescriptions: New tramadol 50 mg tablet 50 mg PO Q8H PRN (Reason: pain) 3 Days Qty: 12 0RF prednisone 50 mg tablet 50 mg PO DAILY Qty: 3 0RF No Action albuterol 90 mcg/actuation aerosol 90 mcg inhalation PRN clarithromycin 500 mg tablet 500 mg PO BID 14 Days Qty: 28 0RF metronidazole 500 mg tablet 500 mg PO BID 14 Days Qty: 28 0RF pantoprazole [Protonix] 40 mg tablet,delayed release (DR/EC) 40 mg PO BID Qty: 42 0RF Rx Instructions: take two times a day for two weeks then daily, then stop bismuth subsalicylate 525 mg tablet 525 mg PO TID 14 Days Qty: 42 0RF Primary Care Provider: Pilo Armas NP Referrals: Pilo Armas NP, [facility] IDENTIFIER-C [Primary Care Provider] - Disposition Disposition: Home, Self Care What to do if you have Problems For any increased pain, shortness of breath, bleeding, nausea or vomiting, chestpain, or any unexpected problems, contact your Primary Care Provider. Call [facility] ([phone]) or report to the closest Emergency Room. Call 911 if necessary. 02/07/23 193 <Electronically signed by Jeremiah Edmondson DO> Cosigner Signature (if applicable): CC: CHRISTEL Armas ~ Signed [facility] Work Phone: 1(610) 868-301308-04-2023 Discharge summary Author Jose Posadas [facility] February 01, 2023 8:01pm Note Date/Time February 01, 2023 7:[address] [facility] Medical Records Department [address] [place] [address] Emergency Department Summary 02/01/23 MR#: [id number] Acct: [id number] Name: PARVIN ALLEN Rep #:[id number] : 1995 27 From: Jose Jensen PCP: CHRISTEL Augustine Sta tus:REG ER Location: ED HPI History of Present Illness Chief Complaint: Lower Extremity Injury Informant: patient Narrative Narrative: 27-year-old female presenting to the emergency department with chief complaint of left foot and ankle pain. Patient was with her child in the backyard when she stepped in a hole falling forward injuring the left foot and ankle. She hasbeen using crutches that she was able to borrow. She notes swelling over the dorsal lateral aspect of the left foot. [facility] Medical History Acute otitis externa of right ear ADD (attention deficit disorder) Anemia Anxiety Asthma Asthma Cholelithiasis Elevated d-dimer Infected dental caries Internal derangement of left shoulder Low iron Marijuana use Non-smoker Physical exam, pre-employment Restless legs Shortness of breath on exertion Wears glasses Home Medications albuterol 90 mcg/actuation aerosol inhaler 90 mcg inhalation PRN SOB 01/15/23 [History Last Taken Unknown] bismuth subsalicylate 525 mg tablet 525 mg PO TID 2 weeks #42 tabs 07/31/23 [Rx Last Taken Unknown] clarithromycin 500 mg tablet 500 mg PO BID 2 weeks #28 tabs 01/28/23 [Rx Last Taken Unknown] metronidazole 500 mg tablet 500 mg PO BID 14 days #28 tabs 01/28/23 [Rx Last Taken Unknown] pantoprazole 40 mg tablet,delayed release (Protonix) 40 mg PO BID #42 tabs 01/28/23 [Rx Last Taken Unknown] Allergy/AdvReac Type Severity Reaction Status Date / Time No Known Allergies Allergy Verified 02/01/23 19:00 Family History Aunt Breast cancer, Onset Age: 50 Grandfather Diabetes Grandmother Diabetes Surgical History History of History of tonsillectomy Hx laparoscopic cholecystectomy Social History household members: spouse number of children: 2 current occupational status: unemployed current occupation: unemployed pets and animals: Yes pets and animals: cat(s) and dog(s) sexually active: Yes Smoking Status: Never smoker alcohol intake: current alcohol intake frequency: holidays/special occasions only substance use type: does not use, former substance user Date of last use: smokes marijuana and marijuana what type of physical activity do you participate in: none seatbelt use: always do you feel safe at home: Yes additional social history: - Brandone ROS ROS ED Constitutional Constitutional ED: Denies chills or weight loss Eyes Eyes: Denies change in vision or diplopia ENT ENT ED: Denies ear pain, rhinorrhea or sore throat Cardiovascular Cardiovascular: Denies chest pain, orthopnea, palpitations or racing heartbeat Respiratory/Chest Respiratory/Chest: Denies cough, dyspnea or orthopnea Gastrointestinal Gastrointestinal: Denies abdominal pain, diarrhea, nausea or vomiting Genitourinary Genitourinary ED: Denies dysuria, hematuria or urinary frequency Musculoskeletal Musculoskeletal: Reports other Details: Left foot ankle. ; Denies arthralgias or myalgias Integumentary Denies abscess or rash Neurologic Neurologic: Denies headache(s) or weakness Psychiatric Psychiatric: Denies anxiety, depression, suicidal ideation or suicidal thoughts Endocrine Endocrinology: Denies polydipsia, polyphagia or polyuria Allergic/Immunologic Allergic/Immunologic ED: Denies mouth swelling, tongue swelling or urticaria EXAM Physical Exam Const Vital Signs: 02/01/23 18:59 Temperature 98 F Temperature Source Temporal Pulse Rate 111 H Respiratory Rate 18 Blood Pressure 149/76 H Blood Pressure Mean 100 Pulse Ox 96 Oxygen Delivery Method Room Air Positive well nourished and well developed General Appearance ED: well developed HEENT Reports normocephalic, head/scalp atraumatic and moist mucous membranes Eyes PERRL and EOMs intact bilaterally Neck no lymphadenopathy, supple and no JVD Resp normal respiratory effort and clear to auscultation bilaterally Cardio regular rate, regular rhythm and no murmurs GI normal to inspection, nondistended, normoactive bowel sounds and non-tender Palpation: soft Back/Spine no CVA tenderness and normal ROM Extremity Extremity Narrative: There is some focal swelling and ecchymosis noted over the dorsal lateral aspectof the left foot. There is no fifth metatarsal pain. No fibular head pain. Nomedial lateral or posterior malleoli or pain. Neurovascular intact. Negative Nunez's test. She is able to dorsi and plantarflex. General Extremety ED: Negative for edema General Extremity: Negative for edema Neuro oriented x3 and CN's II-XII intact bilaterally Sensorium / Orientation: alert Motor Exam: strength 5/5 throughout Psych mental status grossly normal Mood & Affect: Negative for depressed or tearful Skin no rashes or lesions noted and no wounds MDM MDM MDM Narrative Medical decision making narrative: X-rays of the foot and ankle were obtained. These demonstrate no acute fracture. Spurring was noted. Patient will be placed in an [place] wrap and given Motrin for pain crutches as needed for weightbearing. Patient was advised expectant time to recovery 10 to 14 days or possibly longer. She is to follow-up if not improving Radiography Diagnostic Testing: Clinical Impression(s) from Imaging Studies Ankle X-Ray 02/01/23 19:02 IMPRESSION: There is a calcaneal spur. There is an enthesophyte involving the posterior superior calcaneus at the site of insertion of the Achilles tendon. Electronically Signed: Anibal Alexandra MD at 19:41 EDT , Foot X-Ray 02/01/23 19:18 IMPRESSION: There is a calcaneal spur. There is an enthesophyte involving the posterior superior calcaneus at the site of insertion of the Achilles tendon. Electronically Signed: Anibal Alexandra MD at 19:41 EDT [place] Location ID and State: [facility] / [place] , Service support , Discharge Plan Triage Chief Complaint: Lower Extremity Injury ED Provider: Jose Posadas Dx/Rx/DC Orders Clinical Impression: Sprain of foot, left Instructions: ED Foot Sprain Prescriptions: No Action albuterol 90 mcg/actuation aerosol 90 mcg inhalation PRN clarithromycin 500 mg tablet 500 mg PO BID 14 Days Qty: 28 0RF metronidazole 500 mg tablet 500 mg PO BID 14 Days Qty: 28 0RF pantoprazole [Protonix] 40 mg tablet,delayed release (DR/EC) 40 mg PO BID Qty: 42 0RF Rx Instructions: take two times a day for two weeks then daily, then stop bismuth subsalicylate 525 mg tablet 525 mg PO TID 14 Days Qty: 42 0RF Primary Care Provider: Pilo Armas NP Referrals: Pilo Armas [facility]OO IDENTIFIER, [facility]ENTIFIER-C [Primary Care Provider] - 10-14 Days if not better Disposition Disposition: Home, Self Care What to do if you have Problems For any increased pain, shortness of breath, bleeding, nausea or vomiting, chestpain, or any unexpected problems, contact your Primary Care Provider. Call [facility] ([phone]) or report to the closest Emergency Room. Call 911 if necessary. 02/01/232000 <Electronically signed by Jose Posadas DO> Cosigner Signature (if applicable): CC: TATTOO IDENTIFIER-C Pilo Armas ~ Signed [facility] Work Phone: 1(113) 396-839007-27-2023 Evaluation + Plan note Future Scheduled Tests Laboratory* Ferritin 01/24/23 * Ferritin 02/07/23 * Iron Level 01/23/23 * Iron Level 02/07/23 * Thyroid Stimulating Hormone 10/24/22 * Thyroid Stimulating Hormone 01/24/23 * Thyroid Stimulating Hormone 02/07/23 * Free T4 10/24/22 * Free T4 01/24/23 * Free T4 02/07/23 * Reticulocytes (AO) 02/07/23 * Complete Blood Count 01/23/23 * Complete Blood Count 01/24/23 * Complete Blood Count 02/07/23 * Reticulocytes - Panel 01/24/23 * Vitamin D Level 01/24/23 * Complete Metabolic Panel 01/24/23 * Complete Metabolic Panel 02/07/23 * TIBC 01/23/23 * TIBC 01/24/23 * TIBC 02/07/23 Radiology* XR Foot Minimum 3 Views Left 02/28/23 [facility] 07-20-2023 Procedure [facility] 01-17-2023 Procedure [facility]06-28-2023 Discharge summary Author Cas Kang [facility] December 26, 2022 9:55pm Note Date/Time December 26, 2022 8:27 pm [facility] Medical Records Department [address] [place] [address] Emergency Department Summary 12/26/22 MR#: [id number] Acct: [id number] Name: PARVIN ALLEN Rep #:[id number] : 1995 27 From: Cas Kang MD PCP: Pilo Armas TATTOO IDENTIFIERValentinC Sta tus:REG ER Location: ED HPI History of Present Illness Chief Complaint: Back Detail of Chief Complaint: Central low back pain with radiation lateral aspect of the right lower extr Informant: patient Onset/Context/Timing Onset: Days Context: Sudden Onset Chronic pain exacerbated by: No history of chronic back pain Timing: Waxes and wanes Quality: Dull and Aching Location: Lumbar and Right Leg Current Severity: Mild Maximum Severity: Moderate Worsened by: improves with Movement, Ambulation, Bending and Lifting Relieved by: Nothing Associated Symptoms Associated Symptoms: Radiation to Right Leg and - (No saddle paresthesia or anesthesia. Negative foot drop. Question buckling of knees going up or down steps on the right.); Negative for Numbness, Tingling, Radiation to Left Leg, Fever, Abdominal Pain, Dysuria, Unable to Ambulate, Unable to Transfer, Urinary Retention, Urinary Incontinence, Constipation or Fecal Incontinence Narrative Narrative: Patient is a 27-year-old woman who has had intermittent back pain in the past. There is no history of trauma. She denies fever, chills night sweats. She denies recent dental procedure or any type of procedure. She denies dysuria, frequency, urgency or hematuria. She denies bowel or bladder dysfunction. She denies numbness when she wipes or altered sensation. She reports pain rating down the lateral aspect of the right leg. She has not noted a rash. She has not had images of her back. Prior similar symptoms: Yes Recent Illness/Hospitalization: No PFSH PFSH Medical History Acute otitis externa of right ear ADD (attention deficit disorder) Anemia Asthma Cholelithiasis Elevated d-dimer HTN (hypertension) Infected dental caries Internal derangement of left shoulder Palpitations Physical exam, pre-employment Home Medications hydrocodone-acetaminophen 5-325mg 5mg-325mg 1 tab PO Q6H PRN PRN Pain 3 days #10TABLETS 12/26/22 [Rx Last Taken Unknown] naproxen 500 mg tablet 500 mg PO BID #10 tabs 12/26/22 [Rx Last Taken Unknown] Allergy/AdvReac Type Severity Reaction Status Date / Time No Known Allergies Allergy Verified 12/26/22 18:45 Family History Aunt Breast cancer, Onset Age: 50 Grandfather Diabetes Grandmother Diabetes Surgical History History of History of tonsillectomy Social History household members: spouse number of children: 2 current occupational status: unemployed current occupation: unemployed pets and animals: Yes pets and animals: cat(s) and dog(s) sexually active: Yes Smoking Status: Never smoker alcohol intake: current alcohol intake frequency: holidays/special occasions only substance use type: does not use, former substance user Date of last use: smokes marijuana and marijuana what type of physical activity do you participate in: none seatbelt use: always do you feel safe at home: Yes additional social history: - Brandone ROS ROS ED Constitutional Constitutional ED: Denies chills, fever(s), subjective or sweats Eyes Eyes: Denies blurry vision, change in vision or diplopia ENT ENT ED: Denies ear pain, rhinorrhea or sore throat Cardiovascular Cardiovascular: Denies chest pain, orthopnea or palpitations Respiratory/Chest Respiratory/Chest: Denies dyspnea, dyspnea on exertion or orthopnea Gastrointestinal Gastrointestinal: Denies abdominal pain, constipation, diarrhea, melena, nausea or vomiting Genitourinary Genitourinary ED: Denies dysuria, hematuria or urinary frequency Musculoskeletal Musculoskeletal: Reports back pain; Denies arthralgias, myalgias or neck pain Integumentary Denies Abrasions or rash Neurologic Neurologic: Denies headache(s), paresthesias or weakness Psychiatric Psychiatric: Denies anxiety or depression Endocrine Endocrinology: Denies cold intolerance or heat intolerance Hematologic/Lymphatic Hematologic/Lymphatic: Denies easy bleeding or easy bruising EXAM Physical Exam Const Vital Signs: 12/26/22 18:43 Temperature 96.6 F L Temperature Source Temporal Pulse Rate 91 Respiratory Rate 16 Blood Pressure 129/88 H Blood Pressure Mean 101 Pulse Ox 99 Oxygen Delivery Method Room Air Positive well nourished, well developed and obese General Appearance ED: well developed; Negative for NAD or pallor Nutritional Appearance: obese HEENT Reports moist mucous membranes HEENT Narrative: Head is atraumatic normocephalic. Patient has piercing of her nose. Ears normal. Posterior pharynx normal. Eyes PERRL and EOMs intact bilaterally General Eye ED: Negative for pale conjunctiva or scleral icterus Neck no lymphadenopathy, supple and no JVD Resp normal respiratory effort and clear to auscultation bilaterally Cardio regular rate, regular rhythm, S1 normal heart sound, S2 normal heart sound and no murmurs GI normal to inspection, nondistended, normoactive bowel sounds, soft to palpation,non-tender, non-distended and no masses Back/Spine normal to inspection; Negative for no thoracic nor lumbar tenderness General Back: Negative for CVA tenderness Cervical Spine: Negative for cervical spine tenderness Thoracic Spine / Upper Back: paraspinal muscle tenderness Lumbar Spine / Lower Back: ROM limited and straight leg raise negative bilaterally Extremity normal to inspection and no clubbing, cyanosis or edema General Extremety ED: Negative for edema or tenderness General Extremity: Negative for edema Neuro oriented x3 and no sensory deficits noted Neuro Narrative: Straight leg test is negative right and left. Bowstring sign is negative. Normal sensation of L3, L4, L5 and S1 dermatome. EHLs intact. Gait observed without foot drop. Able to walk on heels and toes. Able to perform 1 legged squat right and left leg. DP and PT pulse are palpable. Sensorium / Orientation: alert Motor Exam: strength 5/5 throughout Deep Tendon Reflexes: Rt Patellar (L4): 1+, Lt Patellar (L4): 1+, Rt Ankle (S1):1+ and Lt Ankle (S1): 1+ Deep Tendon Reflexes Back: Rt Patellar (L4): 1+, Lt Patellar (L4): 1+, Rt Ankle (S1): 1+ and Lt Ankle (S1): 1+ Plantar Reflex: Downgoing: bilateral (There is no clonus.) Psych mental status grossly normal Skin no rashes or lesions noted and no wounds General Skin Exam: Negative for jaundice or pallor MDM MDM MDM Narrative Medical decision making narrative: Patient with muscular pain. She was treated with NSAID and opiate analgesia. When she was reevaluated at 2020 she is now complaining of epigastric pain. Shestates is similar to the pain she had prior to cholecystectomy. She does have reproducible epigastric pain. We will treat with GI cocktail and reevaluate. Treatment and Re-Evaluation Narrative: Patient was reassessed at 2149 for her epigastric pain. This has resolved. Patient be discharged to home. Discharge Plan Triage Chief Complaint: Back ED Provider: Jorge LuisCas Dx/Rx/DC Orders Clinical Impression: Low back pain, Acute epigastric pain Instructions: ED Back Pain (Acute or Chronic), ED Gastritis (Adult) Prescriptions: New hydrocodone-acetaminophen [hydrocodone-acetaminophen] 5-325 mg tablet 1 tab PO Q6H PRN PRN (Reason: Pain) 3 Days Qty: 10 0RF naproxen 500 mg tablet 500 mg PO BID Qty: 10 0RF Primary Care Provider: Pilo Armas NP Referrals: Pilo Armas TATTOO IDENTIFIER, TATTOO IDENTIFIER-C [Primary Care Provider] - 3-5 Days if not improving Disposition Disposition: Home, Self Care What to do if you have Problems For any increased pain, shortness of breath, bleeding, nausea or vomiting, chestpain, or any unexpected problems, contact your Primary Care Provider. Call [facility] ([phone]) or report to the closest Emergency Room. Call 911 if necessary. 12/26/222154 <Electronically signed by Cas Kang MD> Cosigner Signature (if applicable): CC: CHRISTEL Armas ~ Signed [facility] Work Phone: 1(247) 143-425105-01-2023 NotePap Smear Specimen AdequacyMay 2022 5:05pmComment.Satisfactory for evaluation. Endocervical and/or squamous metaplasticcells (endocervical component)are present.[facility] INTER[facility]ACED A#[id number] Medical [facility] on above:Satisfactory for evaluation. Endocervical and/or squamous metaplasticcells (endocervical component)are present.10-29-2022 NotePap Smear Specimen AdequacyMay 2022 5:05pmComment.Satisfactory for evaluation. Endocervical and/or squamous metaplasticcells (endocervical component)are present.[facility] INTERFACED A#[id number] Medical Specialty [facility]Comm[facility] on above:Satisfactory for evaluation. Endocervical and/or squamous metaplasticcells (endocervical component)are present.10-29-2022 NotePap Smear Specimen AdequacyMay 2022 5:05pmComment.Satisfactory for evaluation. Endocervical and/or squamous metaplasticcells (endocervical component)are present.[facility] INTER[facility]ACED A#[id number] Medical Specialty Hospital - YoungstownComment on above:Satisfactory for evaluation. Endocervical and/or squamous metaplasticcells (endocervical component)are present.10-29-2022 NotePap Smear Specimen AdequacyMay 2022 5:05pmComment.Satisfactory for evaluation. Endocervical and/or squamous metaplasticcells (endocervical component)are present.[facility] INTER[facility] A#[id number] Medical [facility] on above:Satisfactory for evaluation. Endocervical and/or squamous metaplasticcells (endocervical component)are present.10-29-2022 NotePap Smear Specimen AdequacyMay 2022 5:05pmComment.Satisfactory for evaluation. Endocervical and/or squamous metaplasticcells (endocervical component)are present.[facility] INTERFACED A#[id number] Hospitals Health SystemComment on above:Satisfactory for evaluation. Endocervical and/or squamous metaplasticcells (endocervical component)are present.07-16-[address] Kang [facility] July 16, 2022 8:38pm Note Date/Time July 16, 2022 7 :16pm [facility] Medical Records Department [address] [place] [address] Emergency Department Summary 07/16/22 MR#: [id number] Acct: [id number] Name: PARVIN ALLEN Rep #:[id number] : 1995 26 From: Cas Kang MD PCP: CHRISTEL Augustine Sta tus:REG ER Location: ED HPI History of Present Illness Chief Complaint: Back Detail of Chief Complaint: Severe bilateral low back pain Informant: patient Onset/Context/Timing Onset: Yesterday Context: Sudden Onset Chronic pain exacerbated by: Movement Injury: - (None) Timing: Continuous Quality: - (Severe pain) Location: Lumbar Current Severity: Moderate Maximum Severity: Severe Worsened by: improves with Movement, Ambulation, Bending and Lifting Relieved by: Nothing Associated Symptoms Associated Symptoms: Radiation to Left Leg and - (Ports buckling of her knee going up and down steps on the left side. Denies saddle paresthesia or anesthesia. Denies foot drop.); Negative for Numbness, Tingling, Radiation to Right Leg, Fever, Abdominal Pain, Dysuria, Unable to Ambulate, Unable to Transfer, Urinary Retention, Urinary Incontinence, Constipation or Fecal Incontinence Narrative Narrative: Patient is a 26-year-old woman who presents with severe bilateral atraumatic lowback pain that started yesterday. Movement exacerbates it. She preferred to sit versus standing. She denies bowel bladder dysfunction. She reports the buckling on the left side going up and down steps. She denies foot drop. She denies fever, chills night sweats. She has had no recent dental procedure. Shedenies calf pain. Nothing alleviates her pain. Prior similar symptoms: Yes (When and told she had sciatica) Recent Illness/Hospitalization: No PFSH PFSH Medical History Asthma Cholelithiasis Internal derangement of left shoulder Physical exam, pre-employment Home Medications albuterol sulfate 90 mcg/actuation aerosol inhaler (Ventolin HFA) 2 puff inhalation Q4H PRN PRN Wheezing ##1 11/10/18 [Rx Last Taken Unknown] ibuprofen 600 mg tablet 600 mg PO Q6H PRN PRN Mild Pain (-09/07) #60 tabs 03/03/19 [Rx Last Taken Unknown] meloxicam 15 mg tablet 15 mg PO DAILY Left shoulder pain #30 tabs 08/09/21 [Rx Last Taken Unknown] hydrocodone-acetaminophen 5-325mg 5mg-325mg 1 tab PO Q6H PRN PRN Pain 3 days #10TABLETS 07/16/22 [Rx Last Taken Unknown] naproxen 500 mg tablet 500 mg PO BID #14 tabs 07/16/22 [Rx Last Taken Unknown] Allergy/AdvReac Type Severity Reaction Status Date / Time No Known Allergies Allergy Verified 08/09/21 13:39 Family History Aunt Breast cancer Grandfather Diabetes Grandmother Diabetes Surgical History History of History of tonsillectomy Social History (Updated 07/16/22 @ 19:[address] Cas Kang MD) household members: spouse Smoking Status: Never smoker alcohol intake: never substance use type: does not use ROS ROS ED Constitutional Constitutional ED: Denies chills, fever(s), subjective, sweats or weight loss Eyes Eyes: Denies blurry vision, change in vision or diplopia Cardiovascular Cardiovascular: Denies chest pain, orthopnea, palpitations or racing heartbeat Respiratory/Chest Respiratory/Chest: Denies dyspnea, dyspnea on exertion or orthopnea Gastrointestinal Gastrointestinal: Denies abdominal pain, constipation, diarrhea or melena Genitourinary Genitourinary ED: Denies dysuria, hematuria or urinary frequency Musculoskeletal Musculoskeletal: Reports back pain and other Details: Documented HPI narrative ; Denies arthralgias, myalgias or neck pain Integumentary Denies rash Neurologic Neurologic: Denies paresthesias or weakness Endocrine Endocrinology: Denies cold intolerance or heat intolerance Hematologic/Lymphatic Hematologic/Lymphatic: Denies easy bleeding or easy bruising EXAM Physical Exam Const Vital Signs: 07/16/22 17:37 Temperature 97.6 F L Temperature Source Temporal Pulse Rate 68 Respiratory Rate 18 Blood Pressure 139/79 H Blood Pressure Mean 99 Pulse Ox 98 Oxygen Delivery Method Room Air Positive well nourished, well developed and obese Constitutional Narrative: Patient complained of pain and made sounds when she was turning from her right side to her back. General Appearance ED: well developed; Negative for NAD or pallor Nutritional Appearance: obese HEENT Reports moist mucous membranes HEENT Narrative: Head is atraumatic no cephalic. Ears normal. Nares patent. Mucosa moist. Teeth normal. Patient does have piercings noted. Eyes PERRL and EOMs intact bilaterally General Eye ED: Negative for pale conjunctiva or scleral icterus Neck supple and no JVD Resp normal respiratory effort and clear to auscultation bilaterally Cardio regular rate, regular rhythm, S1 normal heart sound, S2 normal heart sound and no murmurs GI normal to inspection, nondistended, normoactive bowel sounds, soft to palpation,non-tender, non-distended and no masses Back/Spine normal to inspection; Negative for no thoracic nor lumbar tenderness Cervical Spine: Negative for cervical spine tenderness and Negative for paracervical muscle tenderness Thoracic Spine / Upper Back: paraspinal muscle tenderness Lumbar Spine / Lower Back: ROM limited and straight leg raise negative bilaterally Extremity normal to inspection and no clubbing, cyanosis or edema Extremity Narrative: DP and PT T pulses are palpable. Neuro oriented x3 and no sensory deficits noted Neuro Narrative: Normal sensation over L3, L4, L5 and S1 dermatome. There is no clonus. EHLs intact. Normal perianal sensation. Sensorium / Orientation: alert Motor Exam: strength 5/5 throughout Deep Tendon Reflexes: Rt Patellar (L4): 1+, Lt Patellar (L4): 1+, Rt Ankle (S1):1+ and Lt Ankle (S1): 1+ Deep Tendon Reflexes Back: Rt Patellar (L4): 1+, Lt Patellar (L4): 1+, Rt Ankle (S1): 1+ and Lt Ankle (S1): 1+ Plantar Reflex: Downgoing: bilateral Psych Mood & Affect: depressed Skin no rashes or lesions noted and no wounds General Skin Exam: Negative for jaundice or pallor MDM MDM MDM Narrative Medical decision making narrative: Patient with muscular low back pain. Once patient is medicated since she is complained of severe pain will have her ambulate and perform 1 legged squat to determine if she truly does have quadricep weakness. Records from the now clinic and for back note were reviewed. These were all third last year. There was no significant findings other than history of x2 and history of tonsillectomy. Patient was reassessed at 2030. Patient sitting up in bed appears no discomfort. She was able to stand up. Gait was observed and normal. There wasno foot drop. Able to walk on heels and toes. She is able to perform a 1 legged squat right and left lower extremity. She has improved markedly. Plan is to discharge with NSAID and up analgesia. Since patient has atraumatic back pain less than 4 to 6 weeks per literature imaging is not indicated. Patient does not meet criteria for emergent MRI. Discharge Plan Triage Chief Complaint: Back ED Provider: Cas Kang Dx/Rx/DC Orders Clinical Impression: Acute bilateral low back pain, History of asthma, Morbid obesity Instructions: ED Back Exercises, Lumbar, ED Back Pain (Acute or Chronic) Prescriptions: New hydrocodone-acetaminophen [hydrocodone-acetaminophen] 5-325 mg tablet 1 tab PO Q6H PRN PRN (Reason: Pain) 3 Days Qty: 10 0RF naproxen 500 mg tablet 500 mg PO BID Qty: 14 0RF No Action meloxicam 15 mg tablet 15 mg PO DAILY Qty: 30 0RF Rx Instructions: Do not take in conjunction with other NSAIDs. albuterol sulfate [Ventolin HFA] 1 INHALER inhaler 2 puff inhalation Q4H PRN PRN (Reason: Wheezing) Qty: 1 0RF ibuprofen 600 MG tablet 600 mg PO Q6H PRN PRN (Reason: Mild Pain (-09/07)) Qty: 60 0RF Primary Care Provider: Pilo Armas NP Referrals: Pilo Armas TATTOO IDENTIFIER, TATTOO IDENTIFIER-C [Primary Care Provider] - Disposition Disposition: Home, Self Care What to do if you have Problems For any increased pain, shortness of breath, bleeding, nausea or vomiting, chestpain, or any unexpected problems, contact your Primary Care Provider. Call [facility] ([phone]) or report to the closest Emergency Room. Call 911 if necessary. 07/16/222037 <Electronically signed by Cas Kang MD> Cosigner Signature (if applicable): CC: CHRISTEL Armas ~ Signed [facility] Work Phone: 1(458) 246-787401-16-2023 History of Present illness Narrative* Annamarie Bishop RT(R) - 07/16/2022 12:50 PM EST Radiology Service Progress Note PATIENT NAME: Parvin Allen DATE OF SERVICE: July 16, 2022 TIME: 1:09 PM PATIENT IDENTITY VERIFICATION COMPLETED USING TWO (2) IDENTIFIERS: Name and Date of confirmedby patient verbally. FALL SCREENING: Has the patient [...] RT Concha(R) July 16, 2022 1:09 PM documented in this encounterProtestant [facility]acon[facility]11-03-2022 History of Present illness Narrative* Gwen Kaur PA-C - 05/03/2022 2:23 PM EDT This note was created using NoteWriter. Subjective [...] mouth as directed. Take daily x 10 daysas needed to start menses. (Patient not taking: Reported on 05/03/2022) 30 tablet 3 ALBUTEROL INHALATION Inhale as instructed as needed. albuterol HFA (VENTOLIN HFA) 90 mcg/actuation inhaler Inhale 2 Puffs as instructed every 4 hours asneeded for Wheezing/Shortness of Breath. 1 Each 4 [...] prednisone, albuterol inhaler and cough suppressant. Follow-up withPCP if not improving. 2. Exposure to the flu - ICD9: V01.79, ICD10: Z20.828 Gwen Kaur PA-C documented in this encounterProtestant Deaconess Hospital06-01-2022 History of Present illness Narrative* Dalila Guallpa APRN.DASHBOARD DEVELOPER - 11/29/2021 10:58 AM EDT Parvin Allen is a 26 year old [...] past 3 months because menses was on timein September. Attempting - same partner. 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 Industrial Custodian History LMP: 10/11/2021, Having periods Age at Menarche: Age at First : Age at Menopause: Industrial Custodian History Comments: Sexual Activity: Yes; Male Contraception: [...] 2 Puffs as instructed every 4 hours asneeded for Wheezing/Shortness of Breath. medroxyPROGESTERone (PROVERA) 10 [...] 3 months to regulate menses or continuing Provera.Pt has difficulty remembering to take daily medication so she prefers to continue Provera monthly. - HCG QUAL UR B/O - neg - MEDROXYPROGESTERONE 10 MG TABLET Follow-up as needed. Dalila Guallpa APRN.CNP Medical Decision Making: Problems: Moderate: 1+ chronic illnesses with change Risk: Moderate: Drug management Medical Decision Making Level: 4 - Moderate documented in this encounterProtestant Deaconess Hospital05-12-2022 Instructions* Patient Instructions* Michelle Farah APRN.CNP - 11/09/2021 6:28 PM EDT Dental Care Services Here are low cost places you can go for dental care: [facility] [id number] [place] [address]- [phone] Services:Extractions only- No wisdom teeth Hours: - 4:15 P.M. Fee: Free- Donations are accepted [facility]) [address]) Services: Health history, exam, cleaning, X-Rays, patient education and nutritional counseling. Hours: Varies with the school year. By appointment only. Fee: Over 12 years of age, $10.00; Under 12 year of age $6.[address] [facility] [address] [facility] ([facility]): [phone] [facility]): [phone] (Note: These are the only [facility] which offer dental services) Services: Full dental services Hours: 8:30 a.m. to 5:30 p.m., Saturday through Saturday. By appointment. Fee: Sliding Scales and Medicaid. Bring ID and proof of income. [facility] [address] [phone]. [phone]) Services: Full dental services. Hours: By appointment only. Fee: [place]iding [place] and Medicaid. Bring ID and proof of income. [facility] [address] [facility]. [address], [place] [phone] Services: Full dental services. Hours: 8:15 a.m.- 5:00 p.m. By appointment only. Fee: Flat fee. Medicaid and insurances. Bring ID and proof of income. [facility]: By main entrance of [facility] [phone] Services: Full dental services. Hours:Varies with school year. Call for appointment. Fee: Flat fee. Medicaid and insurances. Bring ID and proof of income. [facility] [address] [facility] ([facility] [place] [facility] [place]) [phone] Services: Full dental services. Hours: 8:30 a.m.-4:00 p.m. Saturday through Saturday. Appointments recommended. Emergency walk ins- 8:30 a.m.- 11:15 a.m. and 2:00 p.m-3:15 p.m. Fee: [place]iding Scales and Medicaid. Bring ID and proof of income. [facility] [address] [facility] [phone] Services: Full dental services. Hours: 9:00 a.m.-4:45 p.m. Saturday through Saturday. Appointments and emergency walk in. Fee: Sliding Scales and Medicaid. Bring ID and proof of income. documented in this encounterProtestant Deaconess Hospital05-12-2022 History of Present illness Narrative* Michelle Farah APRN.CNP - 11/09/2021 6:26 PM EDT Images from the original note were not included. This note was created using [employer] Workoutriter. Subjective Parvin Allen is a 26 year old female. 26 year old female with PMH asthma, anemia, anxiety and depression presents for complaints of toothpain. Acute onset 2 days ago Top right wisdom tooth +throbbing +aching States that the tooth itself has been chipped for quite some time She attempted to call the dentist today, and states that she cannot get in until January. Denies inability to open or close. Denies difficulty handling secretions. The history is provided by the patient. No offset printing operator was used. Dental Problem This is a new problem. The current episode started yesterday. The problem occurs constantly. The problem has been gradually worsening. Pertinent negatives include no abdominal pain, anorexia, arthralgias, change in bowel habit, chest pain, chills, congestion, coughing, diaphoresis, fatigue, fever, headaches, joint swelling, myalgias, nausea, neck pain, numbness, rash, sore throat, swollen glands,urinary symptoms, vertigo, visual change, vomiting or weakness. Exacerbated by: eating and chewing.She has tried nothing for the symptoms. The [...] 2 Puffs as instructed every 4 hours asneeded for Wheezing/Shortness of Breath. penicillin V potassium [...] with cracked tooth OTC analgesics Michelle Farah APRN.DASHBOARD DEVELOPER documented in this encounterProtestant Deaconess Hospital12-13-2021 History of Present illness Narrative* Annamarie Bishop RT(R) - 06/12/2021 9:40 AM EST Radiology Service Progress Note PATIENT NAME: Parvin Allen DATE OF SERVICE: June 12, 2021 TIME: 10:11 AM PATIENT IDENTITY VERIFICATION COMPLETED USING TWO (2) IDENTIFIERS: Name and Date of confirmedby patient verbally. FALL SCREENING: Has the patient had 2 falls in the last year or 1 fall with injury or currently using an Ambulatory Assistive Device (Walker, Cane, Wheelchair, Crutches, etc.)? No PATIENT GENDER DATA: Female. status: : No status: NO. PATIENT RELEVANT IMPLANT DATA REVIEWED: Not Applicable RADIOLOGY DEPARTMENT: General X-ray: Exam(s) Completed: Upper Extremity X- Ray(s): Shoulder, AP / TRUE AP / AXILLARY left PERIPHERAL IV DATA: Not applicable SIGNED BY: RT Concha(R) June 12, 2021 10:11 AM documented in this encounterProtestant Deaconess Hospital01-04-2019 History of Past illness Narrative* Problem Noted [...] calculate rate of success using pre-labor factors: http://www.bs.[facility].edu/mfmu/vagbirth.html Predicted chance of vaginal after : 65% Patient's plan for delivery mode: ASHLEY completed Phu Delcid MD 07/08/18 - LTCS report received, reviewed and uploaded. Monisha Marshall APRN.LEEANNM 07/04/2018 Pt had a previous C section for failed induction for preeclampsia. She states that she was transferred from [place] [facility] to [facility] for delivery. Patient signed a release form for her previous OB medical records from Dr Cruz and [facility] She desires a .EMMIs on C Section and ordered and patient is asked to watch them prior to next NOB appointment.TKRN Hx of preeclampsia, prior , currently p regnant 07/04/2018 04/14/2019 Overview: 07/22/18 - Upon review of [place] [facility] [employer] [employer] records from previous - Initial BPs with last 120-130s/80s at beginning of and then were 140-150/90-100s starting at 29 weeks, increasing proteinuria at this time was also noted. 24 hour urine at 31 week visit = 500, +3 protein on urine dip at 33 weeks in office and patient was transferred to high risk care at [facility]. Pre-eclampsia bloodwork was WNL per [place] [facility] records.Monisha Marshall APRN.CNM 07/08/18 - Severe Pre-clampsia [...] of this encounter (statuses as of 11/09/2021) [facility] of Past illness Narrative* Problem Noted [...] calculate rate of success using pre-labor factors: http://www.bs.[facility]/mfmu/vagbirth.html Predicted chance of vaginal after : 65% Patient's plan for delivery mode: ASHLEY completed Phu Delcid MD 07/08/18 - LTCS report received, reviewed and uploaded. Monisha Marshall APRN.CNM 07/04/2018 Pt had a previous C section for failed induction for preeclampsia. She states that she was transferred from [place] [facility] to [facility] for delivery. Patient signed a release form for her previous OB [facility] She desires a .EMMIs on C Section and ordered and patient is asked to watch them prior to next NOB appointment.TKRN Hx of preeclampsia, prior , currently p regnant 07/04/2018 04/14/2019 Overview: 07/22/18 - Upon review of [place] [facility] [employer] records from previous - Initial BPs with last 120-130s/80s at beginning of and then were 140-150/90-100s starting at 29 weeks, increasing proteinuria at this time was also noted. 24 hour urine at 31 week visit = 500, +3 protein on urine dip at 33 weeks in office and patient was transferred to high risk care at [facility]. Pre-eclampsia bloodwork was WNL per [place] [facility] records.Monisha Marshall APRN.CNM 07/08/18 - Severe Pre-clampsia [...] of this encounter (statuses as of 11/29/2021) [facility] History of Past illness Narrative* Problem Noted [...] calculate rate of success using pre-labor factors: http://www.[facility].edu/mfmu/vagbirth.html Predicted chance of vaginal after : 65% Patient's plan for delivery mode: ASHLEY Delcid MD 07/08/18 - LTCS report received, reviewed and uploaded. Monisha Marshall APRN.CNM 07/04/2018 Pt had a previous C section for failed induction for preeclampsia. She states that she was transferred from [place] [facility] to [facility] for delivery. Patient signed a release form for her previous OB medical records from Dr Cruz and her C Section report from [facility] [place] She desires a .EMMIs on C Section and ordered and patient is asked to watch them prior to next NOB appointment.TKRN Hx of preeclampsia, prior , currently p regnant 07/04/2018 04/14/2019 Overview: 07/22/18 - Upon review of [place] [facility] [employer] records from previous - Initial BPs with last 120-130s/80s at beginning of and then were 140-150/90-100s starting at 29 weeks, increasing proteinuria at this time was also noted. 24 hour urine at 31 week visit = 500, +3 protein on urine dip at 33 weeks in office and patient was transferred to high risk care at [facility]. Pre-eclampsia bloodwork was WNL per [facility] records.Monisha Marshall APRN.CNM 07/08/18 - Severe Pre-clampsia [...] of this encounter (statuses as of 05/03/2022) [facility] History of Past illness Narrative* Problem Noted Date Diagnosed Date Resolved Date Short interval between pregn ancies affecting , antepartum 07/04/2018 04/14/2019 Overview: 07/04/2018Patient delivered previous child 08/06/2017.TKRN Previous delivery a ffecting , antepartum 07/04/2018 04/14/2019 Overview: 08/19/18 - [...] calculate rate of success using pre-labor factors: http://www.bs.[facility].edu/mfmu/vagbirth.html Predicted chance of vaginal after : 65% Patient's plan for delivery mode: ASHLEY completed Phu Delcid MD 07/08/18 - LTCS report received, reviewed and uploaded. Monisha Marshall APRN.MAGGY 07/04/2018 Pt had a previous C section for failed induction for preeclampsia. She states that she was transferred from [facility] to [facility] for delivery. Patient signed a release form for her previous OB medical records from Dr Cruz and her C Section report from [facility] Ramon She desires a .SUDARSHANIs on C Section and ordered and patient is asked to watch them prior to next NOB appointment.TKRN Hx of preeclampsia, prior pr egnancy, currently 07/04/2018 04/14/2019 Overview: 07/22/18 - Upon review of [facility] records from previous - Initial BPs with last 120-130s/80s at beginning of and then were 140-150/90-100s starting at 29 weeks, increasing proteinuria at this time was also noted. 24 hour urine at 31 week visit = 500, +3 protein on urine dip at 33 weeks in office and patient was transferred to high risk care at [facility]. Pre-eclampsia bloodwork was WNL per [facility] records.Monisha Marshall APRN.CNM 07/08/18 - Severe Pre-clampsia dx'ed last in late 2nd/early 3rd trimester per patient's report. Recommend starting baby ASA PO daily. Monisha Marshall APRN.MAGGY History of gestational diabe emily in prior [...] as of this encounter (statuses as of 09/02/2023) [facility] Pablo Leary [facility] July 16, 2023 11:18am Note Date/Time July 16, 2023 1 1:18am [facility] Medical Records Department [address] [place] [address] Emergency Department Summary 07/16/23 MR#: [id number] Acct: [id number] Name: PARVIN ALLEN Rep #:[id number] : 1995 27 From: Pablo Leary MD PCP: CHRISTEL Augustine tus:REG ER Location: ED HPI History of Present Illness Chief Complaint: Dental Detail of Chief Complaint: Right upper wisdom tooth pain today. No trauma. Informant: patient Onset/Context/Timing Onset: Today Current Severity: Mild Maximum Severity: Mild Associated Symptoms Assocated Symptom - Dental: Negative for fever, jaw swelling, face swelling, cold sensitivity or hot sensitivity Narrative Narrative: 27-year-old female no seen past medical history. Currently on no medications. No allergies. Complaining of a right upper wisdom tooth she thinks it may be infected. Said bleeding from it today. Denies any trauma. She did not taste visualize any pus. No fever or facial swelling. No trouble swallowing. Prior similar symptoms: Yes Recent Illness/Hospitalization: No PFSH PFSH Medical History ADD (attention deficit disorder) Anemia Anxiety Asthma Cholelithiasis Elevated d-dimer Infected dental caries Internal derangement of left shoulder Low iron Marijuana use Non-smoker Restless legs Shortness of breath on exertion Wears glasses Home Medications albuterol 90 mcg/actuation aerosol inhaler 90 mcg inhalation PRN SOB 01/15/23 [History Last Taken Unknown] penicillin V potassium 500 mg tablet 500 mg PO 4X/DAY #40 tabs 07/16/23 [Rx Last Taken Unknown] Allergy/AdvReac Type Severity Reaction Status Date / Time No Known Allergies Allergy Verified 07/03/23 08:10 Family History Aunt Breast cancer, Onset Age: 50 Grandfather Diabetes Grandmother Diabetes Surgical History History of History of tonsillectomy Hx laparoscopic cholecystectomy Social History household members: spouse number of children: 2 current occupational status: unemployed current occupation: unemployed pets and animals: Yes pets and animals: cat(s) and dog(s) sexually active: Yes Smoking Status: Current every day smoker tobacco type: e-cigarettes alcohol intake: current alcohol intake frequency: holidays/special occasions only substance use type: does not use, former substance user Date of last use: smokes marijuana and marijuana what type of physical activity do you participate in: none seatbelt use: always do you feel safe at home: Yes additional social history: - [employer] ROS ROS ED ROS Narrative Dental pain. No fever. Review of Systems ROS Unobtainable: Denies due to encephalopathy Constitutional Constitutional ED: Denies chills or fever(s) Eyes Eyes: Denies blurry vision ENT ENT ED: Denies ear pain Cardiovascular Cardiovascular: Denies chest pain Respiratory/Chest Respiratory/Chest: Denies cough Gastrointestinal Gastrointestinal: Denies abdominal pain Genitourinary Genitourinary ED: Denies dysuria or hematuria Musculoskeletal Musculoskeletal: Denies arthralgias Integumentary Denies abscess Neurologic Neurologic: Denies headache(s) Psychiatric Psychiatric: Denies anxiety Endocrine Endocrinology: Denies cold intolerance Hematologic/Lymphatic Hematologic/Lymphatic: Denies easy bleeding, easy bruising or lymphadenopathy Allergic/Immunologic Allergic/Immunologic ED: Denies mouth swelling, tongue swelling or urticaria EXAM Physical Exam Narrative Exam Narrative: 27-year-old female no acute distress. Vital signs stable afebrile. HEENT exam,right upper last molar has cavity. Tender. There is no significant gingival swelling. No obvious abscess. No facial swelling. No trouble breathing or swallowing. She does have widespread dental decay and plaques on her teeth. Notrismus. No trouble swallowing or breathing. Neck nontender no lymphadenopathy. Lungs clear. Heart regular rhythm. Otherwise exam unremarkable. Const Vital Signs: 07/16/23 10:39 Temperature 95.7 F L Temperature Source Temporal Pulse Rate 84 Respiratory Rate 16 Blood Pressure 149/97 H Blood Pressure Mean 114 Pulse Ox 100 Oxygen Delivery Method Room Air Positive well nourished and well developed; Negative for cachectic, contracturesor unkempt General Appearance ED: well developed and NAD; Negative for unkempt, cachectic or contractures Nutritional Appearance: Negative for cachectic HEENT HEENT Narrative: Right upper molar tender. Cavity. No abscess. tenderness; Negative for trauma Mouth ED: Yes oral and palatal mucosa normal, Yes lips normal, Yes tongue normal, Yes salivary gland normal, No mouth trauma and No salivary gland abnormal Mouth: oral and palatal mucosa normal, lips normal, tongue normal, salivary gland normal, No mouth trauma and No salivary gland abnormal Teeth and Gingiva: caries, poor dentition and teeth discoloration; Negative for gingiva abnormal Eyes PERRL and EOMs intact bilaterally General Eye ED: Negative for pale conjunctiva or scleral icterus Neck no lymphadenopathy, supple and no JVD General: Negative for normal visual inspection Lymph Lymphatic: no lymphadenopathy noted; Negative for lymphadenopathy Chest Wall inspection of chest normal and palpation of chest normal Chest: Negative for other Resp normal respiratory effort, no retractions and clear to auscultation bilaterally Effort and Inspection: Negative for other Cardio regular rate, regular rhythm, S1 normal heart sound, S2 normal heart sound and no murmurs Jugular Venous Distention: Negative for other Palpation: Negative for palpable S3 Rate: Negative for bradycardia Rhythm: Negative for abnormal rhythm GI normal to inspection, nondistended, normoactive bowel sounds, non-tender, non-distended and no masses Inspection: Negative for other Palpation: soft Bladder / Kidney Exam: No other Back/Spine no CVA tenderness General Back: Negative for CVA tenderness Thoracic Spine / Upper Back: Negative for thoracic spinal tenderness Extremity normal to inspection and no joint enlargement General Extremety ED: Negative for edema or other findings General Extremity: Negative for edema or other findings Neuro oriented x3, CN's II-XII intact bilaterally, moves all extremities and no focal motor deficits Sensorium / Orientation: alert, oriented to person, oriented to place and oriented to time; Negative for orientation impaired Motor Exam: strength 5/5 throughout Psych mental status grossly normal Appearance: Negative for unkempt Attitude: No agitated Mood & Affect: Negative for depressed, anxious or tearful Skin no rashes or lesions noted and no wounds General Skin Exam: Negative for other MDM MDM MDM Narrative Medical decision making narrative: Right upper dental pain with bleeding. Treated as a possible dental infection with Pen-Vee K. First dose given here. 4 times a day for 10 days. Follow-up with a dentist. Motrin and Tylenol for pain. Discharge Plan Triage Chief Complaint: Dental ED Provider: Pablo Leary Dx/Rx/DC Orders Clinical Impression: Dental infection Instructions: ED Dental Abscess Prescriptions: New penicillin V potassium 500 mg tablet 500 mg PO 4X/DAY Qty: 40 0RF No Action albuterol 90 mcg/actuation aerosol 90 mcg inhalation PRN Primary Care Provider: Pilo Armas NP Referrals: Genoveva Castellano [Non-Staff] - As soon as possible Piol Armas TATTOO IDENTIFIER, TATTOO IDENTIFIER-C [Primary Care Provider] - Activity Restrictions/Additional Instructions: Warm salt water rinses in your mouth. Motrin and Tylenol for pain. The antibiotic penicillin VK 4 times a day till gone. Call and follow-up with a dentist to soon as possible. Disposition Disposition: Home, Self Care Capacity Legal Manager Title Reflex Medical hold order details:: IF a medical hold is selected below, a suggested order for a MEDICAL HOLD will reflex upon signing the document. Next of kin: [place] law dictates a PRIORITY LIST for identifying legal decision-maker/legal next of kin in the following order (LNOK): 1st: The patient?s legal guardian, if any 2nd: The patient's spouse (if status is questionable, consult Risk Management) 3rd: The patient?s adult child(hank) (majority, if multiple children) 4th: The patient?s parents 5th: The patient?s adult siblings (majority, if multiple children siblings) What to do if you have Problems For any increased pain, shortness of breath, bleeding, nausea or vomiting, chestpain, or any unexpected problems, contact your Primary Care Provider. Call [facility] ([phone]) or report to the closest Emergency Room. Call 911 if necessary. 07/16/23 1118 <Electronically signed by Pablo Leary MD> Cosigner Signature (if applicable): CC: TATTOO IDENTIFIERJorgito Armas ~ Signed [facility] Work Phone: Evaluation + Plan note Future Appointments Appointment Date:07/13/2022 10:20:00 AM Scheduled Provider:PILO ARMAS APRN - DASHBOARD DEVELOPER Location:[facility] Appointment Type:PC OV Follow Up Future Scheduled Tests Laboratory* D-Dimer 06/18/22 * Ferritin 06/18/22 * Iron Level 06/18/22 * Thyroid Stimulating Hormone 03/30/22 * Lipid Profile 03/30/22 * Lipoprotein (a) 03/30/22 * Vitamin D Level 03/30/22 * Complete Metabolic Panel 03/30/22 * TIBC 06/18/22 [facility] Evaluation note* Diagnosis Odontalgia- Primary Unspecified disorder of the teeth and supporting structures [facility] Diagnosis Irregular menstrual cycle- Primary [facility] Diagnosis Lower respiratory infection- Primary Other diseases of respiratory system, not elsewhere classified Exposure to the flu Contact with or exposure to other viral diseases [facility] this [facility] noteNo assessment information availableWUniversity Hospitals Health System Work Phone: Evaluation note* Diagnosis Onset Date Resolution Status Acute otitis externa of right ear acute Strain of left wrist acute Anemia chronic Infertility acute Encounter for routine gynecological examination noneactive [facility] Work Phone: Evaluation note* Diagnosis Onset Date Resolution Status Acute otitis externa of right ear acute Strain of left wrist acute Anemia chronic Infertility acute Encounter for routine gynecological examination noneactive Infected dental caries acute Pharyngitis acute [facility] Work Phone: Evaluation note* Diagnosis Onset Date Resolution Status Strain of left wrist acute Anemia chronic Infertility acute Encounter for routine gynecological examination noneactive Infected dental caries acute Pharyngitis acute [facility] Work Phone: Evaluation note* Diagnosis Onset Date Resolution Status Breast pain, left acute Family history of BRCA gene positive acute Infertility acute [facility] Work Phone: Evaluation note* Diagnosis Onset Date Resolution Status Breast pain, left acute Family history of BRCA gene positive acute Infertility acute Nausea & vomiting acute [facility] Work Phone: Evaluation note* Diagnosis Onset Date Resolution Status Family history of BRCA gene positive acute Infertility acute Breast pain, left resolved Nausea & vomiting acute History of ovarian cyst acut e Pelvic pain acute [facility] Work Phone: Evaluation note* Diagnosis Strep throat- Primary Streptococcal sore throat [facility] Diagnosis Onset Date Resolution Status History of ovarian cyst acut e Pelvic pain acute [facility] Work Phone: Evaluation note* Diagnosis Onset Date Resolution Status History of ovarian cyst acut e Pelvic pain acute Lumbar radiculopathy acute Sacroiliitis acute Encounter to establish care acute Family history of BRCA gene positive acute History of gestational diabetes acute Iron deficiency anemia acute Lumbar radiculopathy acute Obesity acute Preventative health care acu te Upper respiratory infection, viral acute [facility] Work Phone: Evaluation note* Diagnosis Onset Date Resolution Status Lumbar radiculopathy acute Sacroiliitis acute Encounter to establish care acute Family history of BRCA gene positive acute History of gestational diabetes acute Iron deficiency anemia acute Lumbar radiculopathy acute Obesity acute Preventative health care acu te Upper respiratory infection, viral acute [facility] Work Phone: Evaluation note* Diagnosis Lumbar back pain with radiculopathy affecting lower extremity [facility] Diagnosis Acute pain of left shoulder [facility] Diagnosis Dental infection- Primary Acute apical periodontitis of pulpal origin [facility]* Diagnosis Urinary frequency- Primary [facility]* Diagnosis Positive test- Primary examination or test, positive result History of miscarriage Personal history of other genital system and obstetric disorders [facility]* Diagnosis Dental infection- Primary Acute apical periodontitis of pulpal origin [facility] encounter [facility] Author James Garcia [facility] January 17, 2023 6:21am Note Date/Time January 17, 2023 6:22 am [facility] Medical Records Department [address] [place] [id number] History & Physical Exam 01/17/23 0621 MR#: [id number] Acct: [id number] Name: PARVIN ALLEN Rep #:[id number] : 1995 27 From: James Garcia DO PCP: CHRISTEL Augustine tus:REG [facility] Location: [place] [address] History and Physical Date of Admission: 01/17/23 Chief Complaint: anemia Details: PARVIN ALLEN, is a 27 F who presents to the office today to establish with GI foriron deficiency anemia of unknown etiology. She didn't tolerate oral iron supplement. Hx of iron infusions when . Menses every month, lasts 5-7 days, not heavy like they were prior to having children, her kids are ages 3 and5. She has an appt on 10/29/22 to establish with [facility]. She denies any GI complaints. Very rarely gets heartburn. No nausea, vomiting, dysphagia, abdominal pain, diarrhea, constipation, melena, hematochezia. No prior endoscopy. +fatigue, occasional dizziness with change in position, no SOB.No FH celiac or other GI disorders. 05/2022 hgb 10.9 Comorbidities include ADD, asthma, elevated d-dimer, htn, palpitations, dental caries, gallstones PSH: tonsillectomy, ROS Const Constitutional: No fatigue ENT ENT: No difficulty swallowing Gastro GI: No abdominal pain, belching, bloating, change in bowel habits, change in stool character, coffee ground emesis, constipation, cramping, diarrhea, heartburn, difficulty swallowing, feeling full early, excessive flatus, incontinent of stools, Vomiting blood/hematemesis, Blood in stool, loose stools,Black,tarry stools, nausea/dyspepsia, pain with swallowing, vomiting or other Musc Musculoskeletal: Positive for sciatica and restless legs; No joint pain Skin Skin: No yellowing of the eye or itchy eyes Neuro Neurology: Positive for restless legs Psych Psychiatric: Positive for anxiety, Positive for depression, Positive for hyperactivity and Positive for inattentiveness Endo Endocrine: No fatigue Aller/Imm Allergy/Immunologic: No itchy eyes Almas/Lymp Hematologic/Lymphatic: Positive for easy bruising; No easy bleeding Exam Const General: cooperative and no acute distress Nutritional Appearance: obese Orientation: alert, awake and oriented x3 Eyes Conjunctivae: conjunctivae normal Sclera: sclerae normal Resp Effort & Inspection: normal respiratory effort GI Inspection: obesity Palpation: soft and nontender Quality Reporting Tobacco Screening ([facility] [address]) Smoking Status: Never smoker Assessment and Plan Assessment and Plan (1) Anemia: Status: Chronic Plan: 27 yr old female with chronic JOSÉ. She doesn't tolerate po iron. Required iron infusions when . [facility]. Will update labs today and will test for celiac. Will schedule EGD toeval for hiatal hernia, PUD, H pylori, duodenal villous blunting. f/u office visit 2 wks after egd. Orders: Orders Celiac Disease Profile Today D64.9 - Anemia, unspecified Comprehensive Metabolic Profil Today D64.9 - Anemia, unspecified Ferritin Today D64.9 - Anemia, unspecified Iron+Iron Binding Capacity Today D64.9 - Anemia, unspecified CBC W/Diff, Automated Today D64.9 - Anemia, unspecified I have examined the patient and the H&P has been reviewed. There are no clinicalchanges since date of exam. 01/17/23 0621 <Electronically signed by James Garcia DO> Cosigner Signature (if applicable): CC: CHRISTEL Armas; James Garcia DO~ Signed [facility] Work Phone: History and physical note Author Chey Adair [facility] Note Date/Time March 03, 2025 3:09pm [facility] Medical Records Department [address] [place] [address] OB Triage Physician Note 03/03/25 1507 MR#: [id number] Acct: [id number] Name: PARVIN ALLEN Rep #:[id number] : 1995 29 From: Chey Dupree DO PCP: Care Physician,No Primary Status :REG CLI Y Location: [facility]881-2 HPI - General HPI Narrative PARVIN ALLEN, is a 29 y/o @ 36 weeks who presents to L&D with possible LOF. Maternal Data Information NICOLE Calculator Estimated Delivery Date Method Current WG Current Estimate 03/30/25 Ultrasound #1 36w 1d Other Estimates 04/01/25 Ultrasound #2 35w 6d PFSH PFSH Medical History History of gestational diabetes mellitus (GDM) in prior , currently Infertility Missed History of gestational diabetes in prior , currently H/O pre-eclampsia in prior , currently Supervision of high-risk Drug use affecting Preventative health care Upper respiratory infection, viral Encounter to establish care Pelvic pain Nausea & vomiting Amenorrhea Wears glasses Anxiety Marijuana use Low iron Restless legs Asthma Shortness of breath on exertion Infected dental caries ADD (attention deficit disorder) Elevated d-dimer Internal derangement of left shoulder Cholelithiasis Home Medications ?Medication ?Instructions ?Recorded ?Last Taken ?Type albuterol sulfate 90 mcg/actuation 2 inh inhalation Q4 -6H PRN 10/18/23 Unknown Rx breath activated powder inhaler shortness of breath or wheezing #1 ea PNV 153-FA 400 mcg-om3 35 mg-dha 1 tab PO DAILY 01/11/25 08:00 History 25 mg-epa 5 mg-fish oil chew tablet 1 TAB famotidine 20 mg tablet (Pepcid) 20 mg PO BID #60 tabs 12/09/24 01/11/25 08:00 Rx 20 mg alcohol swabs (Alcohol Wipes) 1 pad topical DAILY #100 ea 01/04/25 Unknown Rx blood sugar diagnostic (Blood #50 ea 01/04/25 Unknown Rx Glucose Test strips) blood-glucose meter #1 ea 01/04/25 Unknown Rx lancets #200 ea 01/04/25 Unknown Rx insulin NPH isoph U-100 human 100 10 unit (0.1 mL) sub cut QAM #10 mL 01/19/25 Unknown Rx unit/mL subcutaneous suspension (Novolin N NPH U-100 Insulin isophane) insulin syringes (disposable) 1 mL #100 ea 01/19/25 Un known Rx ursodiol 300 mg capsule 300 mg PO TID #90 caps 02/18 Unknown Rx Allergy/AdvReac Type Severity Reaction Status Date / Time No Known Allergies Allergy Verified 03/03/25 14:11 Family History Aunt Breast cancer, Onset Age: 50 Grandfather Diabetes Grandmother Diabetes Surgical History History of delivery, currently Hx laparoscopic cholecystectomy History of History of tonsillectomy Social History adopted: No household members: spouse and children number of children: 2 current occupational status: unemployed current occupation: [employer] current occupational exposures/hazards: No pets and animals: Yes ( taking care litter box ) pets and animals: cat(s) and dog(s) history of recent travel: Yes ([place]) out of state: Yes out of country: No sexually active: Yes Smoking Status: Current every day smoker tobacco type: e-cigarettes Smokeless tobacco user: other Electronic Cigarette Use: with nicotine quit status: considering quitting alcohol intake: current alcohol intake frequency: holidays/special occasions only details: Not while substance use type: marijuana well-balanced diet: daily or most days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 2:02pm History of miscarriage, currently pregna nt August 17, 2024 2:02pm History of ovarian cyst August 17, 2 025 2:02pm Hx of section August 17 2:02pm Hx of pre-eclampsia in prior , currently August 17, 2024 2:02pm Internal derangement of left shoulder Fe bruary 2024 2:02pm Iron deficiency anemia August 17 2:02pm Lumbar radiculopathy August 17, 2024 2:02pm Marijuana use during August 17, 2024 2:02pm Obesity affecting August 2:02pm August 17, 2024 2:02pm Sacroiliitis August 17, 2024 2:02pm Supervision of high-risk Febru darin 2024 2:02pm Asthma August 17, 2024 2:02pm ADD (attention deficit disorder) August 302024 11:33am Anxiety September 17, 2024 11: 33am Current smoker September 17, 2024 11: 33am History of gestational diabe emily mellitus (GDM) in prior , currentl September 17, 2024 11:33am History of miscarriage, currently pregna nt September 17, 2024 11:33am Hx of section September 17, 2024 11:33am Hx of pre-eclampsia in prior , currently September 17, 2024 11:33am Iron deficiency anemia September 17, 2024 11:33am Marijuana use during August 11:33am Obesity affecting September 17, 2024 11:33am September 17, 2024 11: 33am Supervision of high-risk September 17, 2024 11:33am ADD (attention deficit disorder) September 292024 11:11am Anxiety October 16, 2024 11: 11am Current smoker October 16, 2024 11: 11am History of gestational diabe emily mellitus (GDM) in prior , currentl October 16, 2024 11:11am History of miscarriage, currently pregna nt October 16, 2024 11:11am Hx of section October 16, 2024 11:11am Hx of pre-eclampsia in prior , currently October 16, 2024 11:11am Iron deficiency anemia October 16, 2024 11:11am Marijuana use during September 11:11am Obesity affecting October 16, 2024 11:11am October 16, 2024 11: 11am Supervision of high-risk October 16, 2024 11:11am ADD (attention deficit disorder) October 10:54am Anemia affecting November 11 10:54am Anxiety November 11, 2024 10:54 am Current smoker November 11, 2024 10:54 am Family history of BRCA gene positive November 11, 2024 10:54am History of gestational diabe emily mellitus (GDM) in prior , currentl November 11, 2024 10:54am History of miscarriage, currently pregna nt November 11, 2024 10:54am History of ovarian cyst November 11, 2024 1 0:54am Hx of section November 11, 2024 10 :54am Hx of pre-eclampsia in prior , currently November 11, 2024 10:54am Internal derangement of left shoulder Ma y 2024 10:54am Iron deficiency anemia November 11, 2024 10 :54am Lumbar radiculopathy November 11, 2024 10:5 4am Marijuana use during November 11, 2024 10:54am Obesity affecting November 11 10:54am November 11, 2024 10:54 am Sacroiliitis November 11, 2024 10:54 am Supervision of high-risk October 292024 10:54am Asthma November 11, 2024 10:54 am Chief Complaint Admit Date NOB NICOLE:03/28August 17, 2024 2:02pm 12wk OB September 17, 2024 11: 33am 300MG VENOFER October 01, 2024 1:22 pm 300MG VENOFER October 07, 2024 10:3 2am 16 wk ob October 16, 2024 11: 11am 20 WK OB November 11, 2024 10:54 am 24 WK OB December 09, 2024 11:0 1am Reason for Visit Admit Date ADD (attention deficit disorder) uar y 2024 2:02pm Anxiety August 17, 2024 2:02pm Current smoker August 17, 2024 2:02pm Family history of BRCA gene positive Feb ruary 2024 2:02pm History of gestational diabe emily mellitus (GDM) in prior , currentl August 17, 2024 2:02pm History of miscarriage, currently pregna nt August 17, 2024 2:02pm History of ovarian cyst August 17, 2 025 2:02pm Hx of section August 17 2:02pm Hx of pre-eclampsia in prior , currently August 17, 2024 2:02pm Internal derangement of left shoulder Fe bruary 2024 2:02pm Iron deficiency anemia August 17 2:02pm Lumbar radiculopathy August 17, 2024 2:02pm Marijuana use during August 17, 2024 2:02pm Obesity affecting August 2:02pm August 17, 2024 2:02pm Sacroiliitis August 17, 2024 2:02pm Supervision of high-risk Febru darin 2024 2:02pm Asthma August 17, 2024 2:02pm ADD (attention deficit disorder) August 302024 11:33am Anxiety September 17, 2024 11: 33am Current smoker September 17, 2024 11: 33am History of gestational diabe emily mellitus (GDM) in prior , currentl September 17, 2024 11:33am History of miscarriage, currently pregna nt September 17, 2024 11:33am Hx of section September 17, 2024 11:33am Hx of pre-eclampsia in prior , currently September 17, 2024 11:33am Iron deficiency anemia September 17, 2024 11:33am Marijuana use during August 11:33am Obesity affecting September 17, 2024 11:33am September 17, 2024 11: 33am Supervision of high-risk September 17, 2024 11:33am ADD (attention deficit disorder) September 292024 11:11am Anxiety October 16, 2024 11: 11am Current smoker October 16, 2024 11: 11am History of gestational diabe emily mellitus (GDM) in prior , currentl October 16, 2024 11:11am History of miscarriage, currently pregna nt October 16, 2024 11:11am Hx of section October 16, 2024 11:11am Hx of pre-eclampsia in prior , currently October 16, 2024 11:11am Iron deficiency anemia October 16, 2024 11:11am Marijuana use during September 11:11am Obesity affecting October 16, 2024 11:11am October 16, 2024 11: 11am Supervision of high-risk October 16, 2024 11:11am ADD (attention deficit disorder) October 10:54am Anemia affecting November 11 10:54am Anxiety November 11, 2024 10:54 am Current smoker November 11, 2024 10:54 am Family history of BRCA gene positive November 11, 2024 10:54am History of gestational diabe emily mellitus (GDM) in prior , currentl November 11, 2024 10:54am History of miscarriage, currently pregna nt November 11, 2024 10:54am History of ovarian cyst November 11, 2024 1 0:54am Hx of section November 11, 2024 10 :54am Hx of pre-eclampsia in prior , currently November 11, 2024 10:54am Internal derangement of left shoulder Ma y 2024 10:54am Iron deficiency anemia November 11, 2024 10 :54am Lumbar radiculopathy November 11, 2024 10:5 4am Marijuana use during November 11, 2024 10:54am Obesity affecting November 11 10:54am November 11, 2024 10:54 am Sacroiliitis November 11, 2024 10:54 am Supervision of high-risk October 292024 10:54am Asthma November 11, 2024 10:54 am ADD (attention deficit disorder) December 092024 11:01am Anemia affecting December 09 11:01am Anxiety December 09, 2024 11:0 1am Current smoker December 09, 2024 11:0 1am Family history of BRCA gene positive Brian e 2024 11:01am History of gestational diabe emily mellitus (GDM) in prior , currentl December 09, 2024 11:01am History of miscarriage, currently pregna nt December 09, 2024 11:01am History of ovarian cyst December 09, 2024 11:01am Hx of section December 09, 2024 1 1:01am Hx of pre-eclampsia in prior , currently December 09, 2024 11:01am Internal derangement of left shoulder Ju 2024 11:01am Iron deficiency anemia December 09, 2024 1 1:01am Lumbar radiculopathy December 09, 2024 11: 01am Marijuana use during November 11:01am Obesity affecting December 09, 025 11:01am December 09, 2024 11:0 1am Sacroiliitis December 09, 2024 11:0 1am Supervision of high-risk December 09, 2024 11:01am Asthma December 09, 2024 11:0 1am Chief Complaint Admit Date 12wk OB September 17, 2024 11: 33am 300MG VENOFER October 01, 2024 1:22 pm 300MG VENOFER October 07, 2024 10:3 2am 16 wk ob October 16, 2024 11: 11am 20 WK OB November 11, 2024 10:54 am 24 WK OB December 09, 2024 11:0 1am 28 wk ob/glucose January 06, 2025 1:00p m Reason for Visit Admit Date ADD (attention deficit disorder) August 302024 11:33am Anxiety September 17, 2024 11: 33am Current smoker September 17, 2024 11: 33am History of miscarriage, currently pregna nt September 17, 2024 11:33am Hx of section September 17, 2024 11:33am Hx of pre-eclampsia in prior , currently September 17, 2024 11:33am Iron deficiency anemia September 17, 2024 11:33am Marijuana use during August 11:33am Obesity affecting September 17, 2024 11:33am September 17, 2024 11: 33am Supervision of high-risk September 17, 2024 11:33am History of gestational diabe emily mellitus (GDM) in prior , currentl September 17, 2024 11:33am ADD (attention deficit disorder) September 292024 11:11am Anxiety October 16, 2024 11: 11am Current smoker October 16, 2024 11: 11am History of miscarriage, currently pregna nt October 16, 2024 11:11am Hx of section October 16, 2024 11:11am Hx of pre-eclampsia in prior , currently October 16, 2024 11:11am Iron deficiency anemia October 16, 2024 11:11am Marijuana use during September 11:11am Obesity affecting October 16, 2024 11:11am October 16, 2024 11: 11am Supervision of high-risk October 16, 2024 11:11am History of gestational diabe emily mellitus (GDM) in prior , currentl October 16, 2024 11:11am ADD (attention deficit disorder) October 10:54am Anemia affecting November 11 10:54am Anxiety November 11, 2024 10:54 am Current smoker November 11, 2024 10:54 am Family history of BRCA gene positive November 11, 2024 10:54am History of miscarriage, currently pregna nt November 11, 2024 10:54am History of ovarian cyst November 11, 2024 1 0:54am Hx of section November 11, 2024 10 :54am Hx of pre-eclampsia in prior , currently November 11, 2024 10:54am Internal derangement of left shoulder Ma y 2024 10:54am Iron deficiency anemia November 11, 2024 10 :54am Lumbar radiculopathy November 11, 2024 10:5 4am Marijuana use during November 11, 2024 10:54am Obesity affecting November 11 10:54am November 11, 2024 10:54 am Sacroiliitis November 11, 2024 10:54 am Supervision of high-risk October 292024 10:54am Asthma November 11, 2024 10:54 am History of gestational diabe emily mellitus (GDM) in prior , currentl November 11, 2024 10:54am ADD (attention deficit disorder) December 092024 11:01am Anemia affecting December 09 11:01am Anxiety December 09, 2024 11:0 1am Current smoker December 09, 2024 11:0 1am Family history of BRCA gene positive Brian e 2024 11:01am History of miscarriage, currently pregna nt December 09, 2024 11:01am History of ovarian cyst December 09, 2024 11:01am Hx of section December 09, 2024 1 1:01am Hx of pre-eclampsia in prior , currently December 09, 2024 11:01am Internal derangement of left shoulder Ju ne 2024 11:01am Iron deficiency anemia December 09, 2024 1 1:01am Lumbar radiculopathy December 09, 2024 11: 01am Marijuana use during November 11:01am Obesity affecting December 09, 025 11:01am December 09, 2024 11:0 1am Sacroiliitis December 09, 2024 11:0 1am Supervision of high-risk December 09, 2024 11:01am Asthma December 09, 2024 11:0 1am History of gestational diabe emily mellitus (GDM) in prior , currentl December 09, 2024 11:01am ADD (attention deficit disorder) December 1:00pm Anemia affecting January 06 1:00pm Anxiety January 06, 2025 1:00p m Current smoker January 06, 2025 1:00p m Family history of BRCA gene positive Abdulaziz y 2024 1:00pm Gestational diabetes mellitu s (GDM) affecting , antepartum January 06, 2025 1:00pm History of miscarriage, currently pregna nt January 06, 2025 1:00pm History of ovarian cyst January 06, 2025 1 :00pm Hx of section January 06, 2025 1: 00pm Hx of pre-eclampsia in prior , currently January 06, 2025 1:00pm Internal derangement of left shoulder Ju ly 2024 1:00pm Iron deficiency anemia January 06, 2025 1: 00pm Lumbar radiculopathy January 06, 2025 1:00 pm Marijuana use during January 06, 2025 1:00pm Obesity affecting January 06 1:00pm January 06, 2025 1:00p m Sacroiliitis January 06, 2025 1:00p m Supervision of high-risk January 06, 2025 1:00pm Asthma January 06, 2025 1:00p m Reason for Visit Admit Date ADD (attention deficit disorder) August 302024 11:33am Anxiety September 17, 2024 11: 33am Current smoker September 17, 2024 11: 33am History of miscarriage, currently pregna nt September 17, 2024 11:33am Hx of section September 17, 2024 11:33am Hx of pre-eclampsia in prior , currently September 17, 2024 11:33am Iron deficiency anemia September 17, 2024 11:33am Marijuana use during August 11:33am Obesity affecting September 17, 2024 11:33am September 17, 2024 11: 33am Supervision of high-risk September 17, 2024 11:33am History of gestational diabe emily mellitus (GDM) in prior , currentl September 17, 2024 11:33am ADD (attention deficit disorder) September 292024 11:11am Anxiety October 16, 2024 11: 11am Current smoker October 16, 2024 11: 11am History of miscarriage, currently pregna nt October 16, 2024 11:11am Hx of section October 16, 2024 11:11am Hx of pre-eclampsia in prior , currently October 16, 2024 11:11am Iron deficiency anemia October 16, 2024 11:11am Marijuana use during September 11:11am Obesity affecting October 16, 2024 11:11am October 16, 2024 11: 11am Supervision of high-risk October 16, 2024 11:11am History of gestational diabe emily mellitus (GDM) in prior , currentl October 16, 2024 11:11am ADD (attention deficit disorder) October 10:54am Anemia affecting November 11 10:54am Anxiety November 11, 2024 10:54 am Current smoker November 11, 2024 10:54 am Family history of BRCA gene positive November 11, 2024 10:54am History of miscarriage, currently pregna nt November 11, 2024 10:54am History of ovarian cyst November 11, 2024 1 0:54am Hx of section November 11, 2024 10 :54am Hx of pre-eclampsia in prior , currently November 11, 2024 10:54am Internal derangement of left shoulder Ma y 2024 10:54am Iron deficiency anemia November 11, 2024 10 :54am Lumbar radiculopathy November 11, 2024 10:5 4am Marijuana use during November 11, 2024 10:54am Obesity affecting November 11 10:54am November 11, 2024 10:54 am Sacroiliitis November 11, 2024 10:54 am Supervision of high-risk October 292024 10:54am Asthma November 11, 2024 10:54 am History of gestational diabe emily mellitus (GDM) in prior , currentl November 11, 2024 10:54am ADD (attention deficit disorder) December 092024 11:01am Anemia affecting December 09 11:01am Anxiety December 09, 2024 11:0 1am Current smoker December 09, 2024 11:0 1am Family history of BRCA gene positive Brian e 2024 11:01am History of miscarriage, currently pregna nt December 09, 2024 11:01am History of ovarian cyst December 09, 2024 11:01am Hx of section December 09, 2024 1 1:01am Hx of pre-eclampsia in prior , currently December 09, 2024 11:01am Internal derangement of left shoulder Ju ne 2024 11:01am Iron deficiency anemia December 09, 2024 1 1:01am Lumbar radiculopathy December 09, 2024 11: 01am Marijuana use during November 11:01am Obesity affecting December 09, 2 025 11:01am December 09, 2024 11:0 1am Sacroiliitis December 09, 2024 11:0 1am Supervision of high-risk December 09, 2024 11:01am Asthma December 09, 2024 11:0 1am History of gestational diabe emily mellitus (GDM) in prior , currentl December 09, 2024 11:01am Anemia affecting January 06 1:00pm Anxiety January 06, 2025 1:00p m Current smoker January 06, 2025 1:00p m Gestational diabetes mellitu s (GDM) affecting , antepartum January 06, 2025 1:00pm History of miscarriage, currently pregna nt January 06, 2025 1:00pm Hx of section January 06, 2025 1: 00pm Hx of pre-eclampsia in prior , currently January 06, 2025 1:00pm Iron deficiency anemia January 06, 2025 1: 00pm Marijuana use during January 06, 2025 1:00pm Obesity affecting January 06 1:00pm January 06, 2025 1:00p m Supervision of high-risk January 06, 2025 1:00pm Chief Complaint Admit Date 12wk OB September 17, 2024 11: 33am 300MG VENOFER October 01, 2024 1:22 pm 300MG VENOFER October 07, 2024 10:3 2am 16 wk ob October 16, 2024 11: 11am 20 WK OB November 11, 2024 10:54 am 24 WK OB December 09, 2024 11:0 1am 28 wk ob/glucose January 06, 2025 1:00p m LOW BACK PAIN January 11, 2025 2:07 pm Chief Complaint Admit Date 300MG VENOFER October 01, 2024 1:22 pm 300MG VENOFER October 07, 2024 10:3 2am 16 wk ob October 16, 2024 11: 11am 20 WK OB November 11, 2024 10:54 am 24 WK OB December 09, 2024 11:0 1am 28 wk ob/glucose January 06, 2025 1:00p m LOW BACK PAIN January 11, 2025 2:07 pm LOW BACK PAIN January 11, 2025 3:35 pm 30 wk ob January 19, 2025 11:2 5am Reason for Visit Admit Date ADD (attention deficit disorder) September 292024 11:11am Anxiety October 16, 2024 11: 11am Current smoker October 16, 2024 11: 11am History of miscarriage, currently pregna nt October 16, 2024 11:11am Hx of section October 16, 2024 11:11am Hx of pre-eclampsia in prior , currently October 16, 2024 11:11am Iron deficiency anemia October 16, 2024 11:11am Marijuana use during September 11:11am Obesity affecting October 16, 2024 11:11am October 16, 2024 11: 11am Supervision of high-risk October 16, 2024 11:11am History of gestational diabe emily mellitus (GDM) in prior , currentl October 16, 2024 11:11am ADD (attention deficit disorder) October 10:54am Anemia affecting November 11 10:54am Anxiety November 11, 2024 10:54 am Current smoker November 11, 2024 10:54 am Family history of BRCA gene positive November 11, 2024 10:54am History of miscarriage, currently pregna nt November 11, 2024 10:54am History of ovarian cyst November 11, 2024 1 0:54am Hx of section November 11, 2024 10 :54am Hx of pre-eclampsia in prior , currently November 11, 2024 10:54am Internal derangement of left shoulder Ma y 2024 10:54am Iron deficiency anemia November 11, 2024 10 :54am Lumbar radiculopathy November 11, 2024 10:5 4am Marijuana use during November 11, 2024 10:54am Obesity affecting November 11 10:54am November 11, 2024 10:54 am Sacroiliitis November 11, 2024 10:54 am Supervision of high-risk October 292024 10:54am Asthma November 11, 2024 10:54 am History of gestational diabe emily mellitus (GDM) in prior , currentl November 11, 2024 10:54am ADD (attention deficit disorder) December 092024 11:01am Anemia affecting December 09 11:01am Anxiety December 09, 2024 11:0 1am Current smoker December 09, 2024 11:0 1am Family history of BRCA gene positive Brian e 2024 11:01am History of miscarriage, currently pregna nt December 09, 2024 11:01am History of ovarian cyst December 09, 2024 11:01am Hx of section December 09, 2024 1 1:01am Hx of pre-eclampsia in prior , currently December 09, 2024 11:01am Internal derangement of left shoulder Ju 2024 11:01am Iron deficiency anemia December 09, 2024 1 1:01am Lumbar radiculopathy December 09, 2024 11: 01am Marijuana use during November 11:01am Obesity affecting December 09, 025 11:01am December 09, 2024 11:0 1am Sacroiliitis December 09, 2024 11:0 1am Supervision of high-risk December 09, 2024 11:01am Asthma December 09, 2024 11:0 1am History of gestational diabe emiyl mellitus (GDM) in prior , currentl December 09, 2024 11:01am Anemia affecting January 06 1:00pm Anxiety January 06, 2025 1:00p m Current smoker January 06, 2025 1:00p m Gestational diabetes mellitu s (GDM) affecting , antepartum January 06, 2025 1:00pm History of miscarriage, currently pregna nt January 06, 2025 1:00pm Hx of section January 06, 2025 1: 00pm Hx of pre-eclampsia in prior , currently January 06, 2025 1:00pm Iron deficiency anemia January 06, 2025 1: 00pm Marijuana use during January 06, 2025 1:00pm Obesity affecting January 06 1:00pm January 06, 2025 1:00p m Supervision of high-risk January 06, 2025 1:00pm ADD (attention deficit disorder) January 192024 11:25am Anemia affecting January 19 11:25am Anxiety January 19, 2025 11:2 5am Current smoker January 19, 2025 11:2 5am Family history of BRCA gene positive Abdulaziz 2024 11:25am Gestational diabetes mellitu s (GDM) affecting , antepartum January 19, 2025 11:25am History of miscarriage, currently pregna nt January 19, 2025 11:25am History of ovarian cyst January 19, 2025 11:25am Hx of section January 19, 2025 1 1:25am Hx of pre-eclampsia in prior , currently January 19, 2025 11:25am Internal derangement of left shoulder Ju ly 2024 11:25am Iron deficiency anemia January 19, 2025 1 1:25am Lumbar radiculopathy January 19, 2025 11: 25am Marijuana use during December 11:25am Obesity affecting January 19, 025 11:25am January 19, 2025 11:2 5am Sacroiliitis January 19, 2025 11:2 5am Sterilization January 19, 2025 11:2 5am Supervision of high-risk January 19, 2025 11:25am Asthma January 19, 2025 11:2 5am Chief Complaint Admit Date 300MG VENOFER October 01, 2024 1:22 pm 300MG VENOFER October 07, 2024 10:3 2am 16 wk ob October 16, 2024 11: 11am 20 WK OB November 11, 2024 10:54 am 24 WK OB December 09, 2024 11:0 1am 28 wk ob/glucose January 06, 2025 1:00p m LOW BACK PAIN January 11, 2025 2:07 pm LOW BACK PAIN January 11, 2025 3:35 pm 30 wk ob January 19, 2025 11:2 5am 300MG VENOFER January 21, 2025 8:52 am Chief Complaint Admit Date 300MG VENOFER October 07, 2024 10:3 2am 16 wk ob October 16, 2024 11: 11am 20 WK OB November 11, 2024 10:54 am 24 WK OB December 09, 2024 11:0 1am 28 wk ob/glucose January 06, 2025 1:00p m LOW BACK PAIN January 11, 2025 2:07 pm LOW BACK PAIN January 11, 2025 3:35 pm 30 wk ob January 19, 2025 11:2 5am 300MG VENOFER January 21, 2025 8:52 am 32 WK OB *C/S wants JV February 02, 2025 11:14am Reason for Visit Admit Date ADD (attention deficit disorder) September 292024 11:11am Anxiety October 16, 2024 11: 11am Current smoker October 16, 2024 11: 11am History of miscarriage, currently pregna nt October 16, 2024 11:11am Hx of section October 16, 2024 11:11am Hx of pre-eclampsia in prior , currently October 16, 2024 11:11am Iron deficiency anemia October 16, 2024 11:11am Marijuana use during September 11:11am Obesity affecting October 16, 2024 11:11am October 16, 2024 11: 11am Supervision of high-risk October 16, 2024 11:11am History of gestational diabe emily mellitus (GDM) in prior , currentl October 16, 2024 11:11am ADD (attention deficit disorder) October 10:54am Anemia affecting November 11 10:54am Anxiety November 11, 2024 10:54 am Current smoker November 11, 2024 10:54 am Family history of BRCA gene positive November 11, 2024 10:54am History of miscarriage, currently pregna nt November 11, 2024 10:54am History of ovarian cyst November 11, 2024 1 0:54am Hx of section November 11, 2024 10 :54am Hx of pre-eclampsia in prior , currently November 11, 2024 10:54am Internal derangement of left shoulder Ma y 2024 10:54am Iron deficiency anemia November 11, 2024 10 :54am Lumbar radiculopathy November 11, 2024 10:5 4am Marijuana use during November 11, 2024 10:54am Obesity affecting November 11 10:54am November 11, 2024 10:54 am Sacroiliitis November 11, 2024 10:54 am Supervision of high-risk October 292024 10:54am Asthma November 11, 2024 10:54 am History of gestational diabe emily mellitus (GDM) in prior , currentl November 11, 2024 10:54am ADD (attention deficit disorder) December 092024 11:01am Anemia affecting December 09 11:01am Anxiety December 09, 2024 11:0 1am Current smoker December 09, 2024 11:0 1am Family history of BRCA gene positive Brian e 2024 11:01am History of miscarriage, currently pregna nt December 09, 2024 11:01am History of ovarian cyst December 09, 2024 11:01am Hx of section December 09, 2024 1 1:01am Hx of pre-eclampsia in prior , currently December 09, 2024 11:01am Internal derangement of left shoulder Ju ne 2024 11:01am Iron deficiency anemia December 09, 2024 1 1:01am Lumbar radiculopathy December 09, 2024 11: 01am Marijuana use during November 11:01am Obesity affecting December 09, 025 11:01am December 09, 2024 11:0 1am Sacroiliitis December 09, 2024 11:0 1am Supervision of high-risk December 09, 2024 11:01am Asthma December 09, 2024 11:0 1am History of gestational diabe emily mellitus (GDM) in prior , currentl December 09, 2024 11:01am Anemia affecting January 06 1:00pm Anxiety January 06, 2025 1:00p m Current smoker January 06, 2025 1:00p m Gestational diabetes mellitu s (GDM) affecting , antepartum January 06, 2025 1:00pm History of miscarriage, currently pregna nt January 06, 2025 1:00pm Hx of section January 06, 2025 1: 00pm Hx of pre-eclampsia in prior , currently January 06, 2025 1:00pm Iron deficiency anemia January 06, 2025 1: 00pm Marijuana use during January 06, 2025 1:00pm Obesity affecting January 06 1:00pm January 06, 2025 1:00p m Supervision of high-risk January 06, 2025 1:00pm ADD (attention deficit disorder) January 192024 11:25am Anemia affecting January 19 11:25am Anxiety January 19, 2025 11:2 5am Current smoker January 19, 2025 11:2 5am Family history of BRCA gene positive Abdulaziz 2024 11:25am Gestational diabetes mellitu s (GDM) affecting , antepartum January 19, 2025 11:25am History of miscarriage, currently pregna nt January 19, 2025 11:25am History of ovarian cyst January 19, 2025 11:25am Hx of section January 19, 2025 1 1:25am Hx of pre-eclampsia in prior , currently January 19, 2025 11:25am Internal derangement of left shoulder Ju ly 2024 11:25am Iron deficiency anemia January 19, 2025 1 1:25am Lumbar radiculopathy January 19, 2025 11: 25am Marijuana use during December 11:25am Obesity affecting January 19 11:25am January 19, 2025 11:2 5am Sacroiliitis January 19, 2025 11:2 5am Sterilization January 19, 2025 11:2 5am Supervision of high-risk January 19, 2025 11:25am Asthma January 19, 2025 11:2 5am ADD (attention deficit disorder) February 02, 2025 11:14am Anemia affecting February 02 11:14am Anxiety February 02, 2025 11: 14am Current smoker February 02, 2025 11: 14am Family history of BRCA gene positive Aug us2024 11:14am Gestational diabetes mellitu s (GDM) affecting , antepartum February 02, 2025 11:14am History of miscarriage, currently pregna nt February 02, 2025 11:14am History of ovarian cyst February 02, 2025 11:14am Hx of section February 02, 2025 11:14am Hx of pre-eclampsia in prior , currently February 02, 2025 11:14am Internal derangement of left shoulder Au 2024 11:14am Iron deficiency anemia February 02, 2025 11:14am Lumbar radiculopathy February 02, 2025 11 :14am Marijuana use during January 11:14am Obesity affecting February 02, 2025 11:14am February 02, 2025 11: 14am Sacroiliitis February 02, 2025 11: 14am Sterilization February 02, 2025 11: 14am Supervision of high-risk Augus t 2024 11:14am Asthma February 02, 2025 11: 14am Chief Complaint Admit Date 16 wk ob October 16, 2024 11: 11am 20 WK OB November 11, 2024 10:54 am 24 WK OB December 09, 2024 11:0 1am 28 wk ob/glucose January 06, 2025 1:00p m LOW BACK PAIN January 11, 2025 2:07 pm LOW BACK PAIN January 11, 2025 3:35 pm 30 wk ob January 19, 2025 11:2 5am 300MG VENOFER January 21, 2025 8:52 am 32 WK OB *C/S wants JV February 02, 2025 11:14am WELL BEING/GROWTH - 32 WEEKS Augus t 2024 12:18pm Chief Complaint Admit Date 16 wk ob October 16, 2024 11: 11am 20 WK OB November 11, 2024 10:54 am 24 WK OB December 09, 2024 11:0 1am 28 wk ob/glucose January 06, 2025 1:00p m LOW BACK PAIN January 11, 2025 2:07 pm LOW BACK PAIN January 11, 2025 3:35 pm 30 wk ob January 19, 2025 11:2 5am 300MG VENOFER January 21, 2025 8:52 am 32 WK OB *C/S wants JV February 02, 2025 11:14am WELL BEING/GROWTH - 32 WEEKS Augus t 2024 12:18pm WELL BEING - 33 WEEKS February 09, 2025 7:46am 33wk ob *per SM February 10, 2025 10 :44am Reason for Visit Admit Date ADD (attention deficit disorder) September 292024 11:11am Anxiety October 16, 2024 11: 11am Current smoker October 16, 2024 11: 11am History of miscarriage, currently pregna nt October 16, 2024 11:11am Hx of section October 16, 2024 11:11am Hx of pre-eclampsia in prior , currently October 16, 2024 11:11am Iron deficiency anemia October 16, 2024 11:11am Marijuana use during September 11:11am Obesity affecting October 16, 2024 11:11am October 16, 2024 11: 11am Supervision of high-risk October 16, 2024 11:11am History of gestational diabe emily mellitus (GDM) in prior , currentl October 16, 2024 11:11am ADD (attention deficit disorder) October 10:54am Anemia affecting November 11 10:54am Anxiety November 11, 2024 10:54 am Current smoker November 11, 2024 10:54 am Family history of BRCA gene positive November 11, 2024 10:54am History of miscarriage, currently pregna nt November 11, 2024 10:54am History of ovarian cyst November 11, 2024 1 0:54am Hx of section November 11, 2024 10 :54am Hx of pre-eclampsia in prior , currently November 11, 2024 10:54am Internal derangement of left shoulder Ma y 2024 10:54am Iron deficiency anemia November 11, 2024 10 :54am Lumbar radiculopathy November 11, 2024 10:5 4am Marijuana use during November 11, 2024 10:54am Obesity affecting November 11 10:54am November 11, 2024 10:54 am Sacroiliitis November 11, 2024 10:54 am Supervision of high-risk October 292024 10:54am Asthma May 14th, 2025 10:54 am History of gestational diabe emily mellitus (GDM) in prior , currentl November 11, 2024 10:54am ADD (attention deficit disorder) December 092024 11:01am Anemia affecting December 09 11:01am Anxiety December 09, 2024 11:0 1am Current smoker December 09, 2024 11:0 1am Family history of BRCA gene positive Brian e 2024 11:01am History of miscarriage, currently pregna nt December 09, 2024 11:01am History of ovarian cyst December 09, 2024 11:01am Hx of section December 09, 2024 1 1:01am Hx of pre-eclampsia in prior , currently December 09, 2024 11:01am Internal derangement of left shoulder Ju 2024 11:01am Iron deficiency anemia December 09, 2024 1 1:01am Lumbar radiculopathy December 09, 2024 11: 01am Marijuana use during November 11:01am Obesity affecting December 09 025 11:01am December 09, 2024 11:0 1am Sacroiliitis December 09, 2024 11:0 1am Supervision of high-risk December 09, 2024 11:01am Asthma December 09, 2024 11:0 1am History of gestational diabe emily mellitus (GDM) in prior , currentl December 09, 2024 11:01am Anemia affecting January 06 1:00pm Anxiety January 06, 2025 1:00p m Current smoker January 06, 2025 1:00p m Gestational diabetes mellitu s (GDM) affecting , antepartum January 06, 2025 1:00pm History of miscarriage, currently pregna nt January 06, 2025 1:00pm Hx of section January 06, 2025 1: 00pm Hx of pre-eclampsia in prior , currently January 06, 2025 1:00pm Iron deficiency anemia January 06, 2025 1: 00pm Marijuana use during January 06, 2025 1:00pm Obesity affecting January 06 1:00pm January 06, 2025 1:00p m Supervision of high-risk January 06, 2025 1:00pm ADD (attention deficit disorder) January 192024 11:25am Anemia affecting January 19 11:25am Anxiety January 19, 2025 11:2 5am Current smoker January 19, 2025 11:2 5am Family history of BRCA gene positive Abdulaziz 2024 11:25am Gestational diabetes mellitu s (GDM) affecting , antepartum January 19, 2025 11:25am History of miscarriage, currently pregna nt January 19, 2025 11:25am History of ovarian cyst January 19, 2025 11:25am Hx of section January 19, 2025 1 1:25am Hx of pre-eclampsia in prior , currently January 19, 2025 11:25am Internal derangement of left shoulder Ju ly 2024 11:25am Iron deficiency anemia January 19, 2025 1 1:25am Lumbar radiculopathy January 19, 2025 11: 25am Marijuana use during December 11:25am Obesity affecting January 19 11:25am January 19, 2025 11:2 5am Sacroiliitis January 19, 2025 11:2 5am Sterilization January 19, 2025 11:2 5am Supervision of high-risk January 19, 2025 11:25am Asthma January 19, 2025 11:2 5am ADD (attention deficit disorder) February 02, 2025 11:14am Anemia affecting February 02 11:14am Anxiety February 02, 2025 11: 14am Current smoker February 02, 2025 11: 14am Family history of BRCA gene positive Jan us2024 11:14am Gestational diabetes mellitu s (GDM) affecting , antepartum February 02, 2025 11:14am History of miscarriage, currently pregna nt February 02, 2025 11:14am History of ovarian cyst February 02, 2025 11:14am Hx of section February 02, 2025 11:14am Hx of pre-eclampsia in prior , currently February 02, 2025 11:14am Internal derangement of left shoulder Au 2024 11:14am Iron deficiency anemia February 02, 2025 11:14am Lumbar radiculopathy February 02, 2025 11 :14am Marijuana use during January 11:14am Obesity affecting February 02, 2025 11:14am February 02, 2025 11: 14am Sacroiliitis February 02, 2025 11: 14am Sterilization February 02, 2025 11: 14am Supervision of high-risk Augus t 2024 11:14am Asthma February 02, 2025 11: 14am ADD (attention deficit disorder) February 10, 2025 10:44am Anemia affecting February 10, 2025 10:44am Anxiety February 10, 2025 10 :44am Current smoker February 10, 2025 10 :44am Family history of BRCA gene positive Jan us2024 10:44am Gestational diabetes mellitu s (GDM) affecting , antepartum February 10, 2025 10:44am History of miscarriage, currently pregna nt February 10, 2025 10:44am History of ovarian cyst February 10 10:44am Hx of section February 10, 2025 10:44am Hx of pre-eclampsia in prior , currently February 10, 2025 10:44am Internal derangement of left shoulder Au 2024 10:44am Iron deficiency anemia February 10, 2025 10:44am Lumbar radiculopathy February 10, 2025 1 0:44am Marijuana use during February 102024 10:44am Obesity affecting February 10, 2025 10:44am February 10, 2025 10 :44am Sacroiliitis February 10, 2025 10 :44am Sterilization February 10, 2025 10 :44am Supervision of high-risk Augus t 2024 10:44am Asthma February 10, 2025 10 :44am Chief Complaint Admit Date 20 WK OB November 11, 2024 10:54 am 24 WK OB December 09, 2024 11:0 1am 28 wk ob/glucose January 06, 2025 1:00p m LOW BACK PAIN January 11, 2025 2:07 pm LOW BACK PAIN January 11, 2025 3:35 pm 30 wk ob January 19, 2025 11:2 5am 300MG VENOFER January 21, 2025 8:52 am 32 WK OB *C/S wants JV February 02, 2025 11:14am WELL BEING/GROWTH - 32 WEEKS Augus t 2024 12:18pm WELL BEING - 33 WEEKS February 09, 2025 7:46am 33wk ob *per SM February 10, 2025 10 :44am Reason for Visit Admit Date ADD (attention deficit disorder) October 10:54am Anemia affecting November 11 10:54am Anxiety November 11, 2024 10:54 am Current smoker November 11, 2024 10:54 am Family history of BRCA gene positive November 11, 2024 10:54am History of miscarriage, currently pregna nt November 11, 2024 10:54am History of ovarian cyst November 11, 2024 1 0:54am Hx of section November 11, 2024 10 :54am Hx of pre-eclampsia in prior , currently November 11, 2024 10:54am Internal derangement of left shoulder Ma y 2024 10:54am Iron deficiency anemia November 11, 2024 10 :54am Lumbar radiculopathy November 11, 2024 10:5 4am Marijuana use during November 11, 2024 10:54am Obesity affecting November 11 10:54am November 11, 2024 10:54 am Sacroiliitis November 11, 2024 10:54 am Supervision of high-risk October 292024 10:54am Asthma November 11, 2024 10:54 am History of gestational diabe emily mellitus (GDM) in prior , currentl November 11, 2024 10:54am ADD (attention deficit disorder) December 092024 11:01am Anemia affecting December 09 11:01am Anxiety December 09, 2024 11:0 1am Current smoker December 09, 2024 11:0 1am Family history of BRCA gene positive Brian e 2024 11:01am History of miscarriage, currently pregna nt December 09, 2024 11:01am History of ovarian cyst December 09, 2024 11:01am Hx of section December 09, 2024 1 1:01am Hx of pre-eclampsia in prior , currently December 09, 2024 11:01am Internal derangement of left shoulder Ju ne 2024 11:01am Iron deficiency anemia December 09, 2024 1 1:01am Lumbar radiculopathy December 09, 2024 11: 01am Marijuana use during November 11:01am Obesity affecting December 09, 025 11:01am December 09, 2024 11:0 1am Sacroiliitis December 09, 2024 11:0 1am Supervision of high-risk December 09, 2024 11:01am Asthma December 09, 2024 11:0 1am History of gestational diabe emily mellitus (GDM) in prior , currentl December 09, 2024 11:01am Anemia affecting January 06 1:00pm Anxiety January 06, 2025 1:00p m Current smoker January 06, 2025 1:00p m Gestational diabetes mellitu s (GDM) affecting , antepartum January 06, 2025 1:00pm History of miscarriage, currently pregna nt January 06, 2025 1:00pm Hx of section January 06, 2025 1: 00pm Hx of pre-eclampsia in prior , currently January 06, 2025 1:00pm Iron deficiency anemia January 06, 2025 1: 00pm Marijuana use during January 06, 2025 1:00pm Obesity affecting January 06 1:00pm January 06, 2025 1:00p m Supervision of high-risk January 06, 2025 1:00pm ADD (attention deficit disorder) January 192024 11:25am Anemia affecting January 19 11:25am Anxiety January 19, 2025 11:2 5am Current smoker January 19, 2025 11:2 5am Family history of BRCA gene positive Abdulaziz y 2024 11:25am Gestational diabetes mellitu s (GDM) affecting , antepartum January 19, 2025 11:25am History of miscarriage, currently pregna nt January 19, 2025 11:25am History of ovarian cyst January 19, 2025 11:25am Hx of section January 19, 2025 1 1:25am Hx of pre-eclampsia in prior , currently January 19, 2025 11:25am Internal derangement of left shoulder Ju ly 2024 11:25am Iron deficiency anemia January 19, 2025 1 1:25am Lumbar radiculopathy January 19, 2025 11: 25am Marijuana use during December 11:25am Obesity affecting January 19 025 11:25am January 19, 2025 11:2 5am Sacroiliitis January 19, 2025 11:2 5am Sterilization January 19, 2025 11:2 5am Supervision of high-risk January 19, 2025 11:25am Asthma January 19, 2025 11:2 5am ADD (attention deficit disorder) February 02, 2025 11:14am Anemia affecting February 02 11:14am Anxiety February 02, 2025 11: 14am Current smoker February 02, 2025 11: 14am Family history of BRCA gene positive Aug us2024 11:14am Gestational diabetes mellitu s (GDM) affecting , antepartum February 02, 2025 11:14am History of miscarriage, currently pregna nt February 02, 2025 11:14am History of ovarian cyst February 02, 2025 11:14am Hx of section February 02, 2025 11:14am Hx of pre-eclampsia in prior , currently February 02, 2025 11:14am Internal derangement of left shoulder Au 2024 11:14am Iron deficiency anemia February 02, 2025 11:14am Lumbar radiculopathy February 02, 2025 11 :14am Marijuana use during January 11:14am Obesity affecting February 02, 2025 11:14am February 02, 2025 11: 14am Sacroiliitis February 02, 2025 11: 14am Sterilization February 02, 2025 11: 14am Supervision of high-risk Augus t 2024 11:14am Asthma February 02, 2025 11: 14am ADD (attention deficit disorder) February 10, 2025 10:44am Anemia affecting February 10, 2025 10:44am Anxiety February 10, 2025 10 :44am Current smoker February 10, 2025 10 :44am Family history of BRCA gene positive Aug ust 2024 10:44am Gestational diabetes mellitu s (GDM) affecting , antepartum February 10, 2025 10:44am History of miscarriage, currently pregna nt February 10, 2025 10:44am History of ovarian cyst February 10 10:44am Hx of section February 10, 2025 10:44am Hx of pre-eclampsia in prior , currently February 10, 2025 10:44am Internal derangement of left shoulder Au brien 2024 10:44am Iron deficiency anemia February 10, 2025 10:44am Lumbar radiculopathy February 10, 2025 1 0:44am Marijuana use during February 102024 10:44am Obesity affecting February 10, 2025 10:44am February 10, 2025 10 :44am Sacroiliitis February 10, 2025 10 :44am Sterilization February 10, 2025 10 :44am Supervision of high-risk Augus 2024 10:44am Asthma February 10, 2025 10 :44am Chief Complaint Admit Date 20 WK OB November 11, 2024 10:54 am 24 WK OB December 09, 2024 11:0 1am 28 wk ob/glucose January 06, 2025 1:00p m LOW BACK PAIN January 11, 2025 2:07 pm LOW BACK PAIN January 11, 2025 3:35 pm 30 wk ob January 19, 2025 11:2 5am 300MG VENOFER January 21, 2025 8:52 am 32 WK OB *C/S wants JV February 02, 2025 11:14am WELL BEING/GROWTH - 32 WEEKS Augus 2024 12:18pm WELL BEING - 33 WEEKS February 09, 2025 7:46am 33wk ob *per SM February 10, 2025 10 :44am WELL BEING - 34 WEEKS February 16, 2025 1:26pm 34wk ob/nst *SM csection February 19 10:02am Reason for Visit Admit Date ADD (attention deficit disorder) October 10:54am Anemia affecting November 11 10:54am Anxiety November 11, 2024 10:54 am Current smoker November 11, 2024 10:54 am Family history of BRCA gene positive November 11, 2024 10:54am History of miscarriage, currently pregna nt November 11, 2024 10:54am History of ovarian cyst November 11, 2024 1 0:54am Hx of section November 11, 2024 10 :54am Hx of pre-eclampsia in prior , currently November 11, 2024 10:54am Internal derangement of left shoulder Ma y 2024 10:54am Iron deficiency anemia November 11, 2024 10 :54am Lumbar radiculopathy November 11, 2024 10:5 4am Marijuana use during November 11, 2024 10:54am Obesity affecting November 11 10:54am November 11, 2024 10:54 am Sacroiliitis November 11, 2024 10:54 am Supervision of high-risk October 292024 10:54am Asthma November 11, 2024 10:54 am History of gestational diabe emily mellitus (GDM) in prior , currentl November 11, 2024 10:54am ADD (attention deficit disorder) December 092024 11:01am Anemia affecting December 09 11:01am Anxiety December 09, 2024 11:0 1am Current smoker December 09, 2024 11:0 1am Family history of BRCA gene positive Brian e 2024 11:01am History of miscarriage, currently pregna nt December 09, 2024 11:01am History of ovarian cyst December 09, 2024 11:01am Hx of section December 09, 2024 1 1:01am Hx of pre-eclampsia in prior , currently December 09, 2024 11:01am Internal derangement of left shoulder Ju ne 2024 11:01am Iron deficiency anemia December 09, 2024 1 1:01am Lumbar radiculopathy December 09, 2024 11: 01am Marijuana use during November 11:01am Obesity affecting December 09, 025 11:01am December 09, 2024 11:0 1am Sacroiliitis December 09, 2024 11:0 1am Supervision of high-risk December 09, 2024 11:01am Asthma December 09, 2024 11:0 1am History of gestational diabe emily mellitus (GDM) in prior , currentl December 09, 2024 11:01am Anemia affecting January 06 1:00pm Anxiety January 06, 2025 1:00p m Current smoker January 06, 2025 1:00p m Gestational diabetes mellitu s (GDM) affecting , antepartum January 06, 2025 1:00pm History of miscarriage, currently pregna nt January 06, 2025 1:00pm Hx of section January 06, 2025 1: 00pm Hx of pre-eclampsia in prior , currently January 06, 2025 1:00pm Iron deficiency anemia January 06, 2025 1: 00pm Marijuana use during January 06, 2025 1:00pm Obesity affecting January 06 1:00pm January 06, 2025 1:00p m Supervision of high-risk January 06, 2025 1:00pm ADD (attention deficit disorder) January 192024 11:25am Anemia affecting January 19 11:25am Anxiety January 19, 2025 11:2 5am Current smoker January 19, 2025 11:2 5am Family history of BRCA gene positive Abdulaziz 2024 11:25am Gestational diabetes mellitu s (GDM) affecting , antepartum January 19, 2025 11:25am History of miscarriage, currently pregna nt January 19, 2025 11:25am History of ovarian cyst January 19, 2025 11:25am Hx of section January 19, 2025 1 1:25am Hx of pre-eclampsia in prior , currently January 19, 2025 11:25am Internal derangement of left shoulder Ju ly 2024 11:25am Iron deficiency anemia January 19, 2025 1 1:25am Lumbar radiculopathy January 19, 2025 11: 25am Marijuana use during December 11:25am Obesity affecting January 19 025 11:25am January 19, 2025 11:2 5am Sacroiliitis January 19, 2025 11:2 5am Sterilization January 19, 2025 11:2 5am Supervision of high-risk January 19, 2025 11:25am Asthma January 19, 2025 11:2 5am ADD (attention deficit disorder) February 02, 2025 11:14am Anemia affecting February 02, 2 025 11:14am Anxiety February 02, 2025 11: 14am Current smoker February 02, 2025 11: 14am Family history of BRCA gene positive Aug ust 2024 11:14am Gestational diabetes mellitu s (GDM) affecting , antepartum February 02, 2025 11:14am History of miscarriage, currently pregna nt February 02, 2025 11:14am History of ovarian cyst February 02, 2025 11:14am Hx of section February 02, 2025 11:14am Hx of pre-eclampsia in prior , currently February 02, 2025 11:14am Internal derangement of left shoulder Au brien 2024 11:14am Iron deficiency anemia February 02, 2025 11:14am Lumbar radiculopathy February 02, 2025 11 :14am Marijuana use during January 11:14am Obesity affecting February 02, 2025 11:14am February 02, 2025 11: 14am Sacroiliitis February 02, 2025 11: 14am Sterilization February 02, 2025 11: 14am Supervision of high-risk Augus t 2024 11:14am Asthma February 02, 2025 11: 14am ADD (attention deficit disorder) February 10, 2025 10:44am Anemia affecting February 10, 2025 10:44am Anxiety February 10, 2025 10 :44am Current smoker February 10, 2025 10 :44am Family history of BRCA gene positive Aug ust 2024 10:44am Gestational diabetes mellitu s (GDM) affecting , antepartum February 10, 2025 10:44am History of miscarriage, currently pregna nt February 10, 2025 10:44am History of ovarian cyst February 10 10:44am Hx of section February 10, 2025 10:44am Hx of pre-eclampsia in prior , currently February 10, 2025 10:44am Internal derangement of left shoulder Au brien 2024 10:44am Iron deficiency anemia February 10, 2025 10:44am Lumbar radiculopathy February 10, 2025 1 0:44am Marijuana use during February 102024 10:44am Obesity affecting February 10, 2025 10:44am February 10, 2025 10 :44am Sacroiliitis February 10, 2025 10 :44am Sterilization February 10, 2025 10 :44am Supervision of high-risk Augus t 2024 10:44am Asthma February 10, 2025 10 :44am ADD (attention deficit disorder) February 19, 2025 10:02am Anemia affecting February 19, 2025 10:02am Anxiety February 19, 2025 10 :02am Current smoker February 19, 2025 10 :02am Family history of BRCA gene positive Aug ust 2024 10:02am Gestational diabetes mellitu s (GDM) affecting , antepartum February 19, 2025 10:02am History of miscarriage, currently pregna nt February 19, 2025 10:02am History of ovarian cyst February 19 10:02am Hx of section February 19, 2025 10:02am Hx of pre-eclampsia in prior , currently February 19, 2025 10:02am Internal derangement of left shoulder Au brien 2024 10:02am Iron deficiency anemia February 19, 2025 10:02am Lumbar radiculopathy February 19, 2025 1 0:02am Marijuana use during February 192024 10:02am Obesity affecting February 19, 2025 10:02am February 19, 2025 10 :02am Pruritus of in third trimester February 19, 2025 10:02am Sacroiliitis February 19, 2025 10 :02am Sterilization February 19, 2025 10 :02am Supervision of high-risk Augus t 2024 10:02am Asthma February 19, 2025 10 :02am Chief Complaint Admit Date 20 WK OB November 11, 2024 10:54 am 24 WK OB December 09, 2024 11:0 1am 28 wk ob/glucose January 06, 2025 1:00p m LOW BACK PAIN January 11, 2025 2:07 pm LOW BACK PAIN January 11, 2025 3:35 pm 30 wk ob January 19, 2025 11:2 5am 300MG VENOFER January 21, 2025 8:52 am 32 WK OB *C/S wants JV February 02, 2025 11:14am WELL BEING/GROWTH - 32 WEEKS Augus t 2024 12:18pm WELL BEING - 33 WEEKS February 09, 2025 7:46am 33wk ob *per SM February 10, 2025 10 :44am WELL BEING - 34 WEEKS February 16, 2025 1:26pm 34wk ob/nst *SM csection February 19 10:02am WELL BEING - 35 WEEKS February 23, 2025 8:51am Chief Complaint Admit Date 20 WK OB November 11, 2024 10:54 am 24 WK OB December 09, 2024 11:0 1am 28 wk ob/glucose January 06, 2025 1:00p m LOW BACK PAIN January 11, 2025 2:07 pm LOW BACK PAIN January 11, 2025 3:35 pm 30 wk ob January 19, 2025 11:2 5am 300MG VENOFER January 21, 2025 8:52 am 32 WK OB *C/S wants JV February 02, 2025 11:14am WELL BEING/GROWTH - 32 WEEKS Augus t 2024 12:18pm WELL BEING - 33 WEEKS February 09, 2025 7:46am 33wk ob *per SM February 10, 2025 10 :44am WELL BEING - 34 WEEKS February 16, 2025 1:26pm 34wk ob/nst *SM csection February 19 10:02am WELL BEING - 35 WEEKS February 23, 2025 8:51am 35wk ob/nst *SM csection February 26 9:00am Reason for Visit Admit Date ADD (attention deficit disorder) October 10:54am Anemia affecting November 11 10:54am Anxiety November 11, 2024 10:54 am Current smoker November 11, 2024 10:54 am Family history of BRCA gene positive November 11, 2024 10:54am History of miscarriage, currently pregna nt November 11, 2024 10:54am History of ovarian cyst November 11, 2024 1 0:54am Hx of section November 11, 2024 10 :54am Hx of pre-eclampsia in prior , currently November 11, 2024 10:54am Internal derangement of left shoulder Ma y 2024 10:54am Iron deficiency anemia November 11, 2024 10 :54am Lumbar radiculopathy November 11, 2024 10:5 4am Marijuana use during November 11, 2024 10:54am Obesity affecting November 11 10:54am November 11, 2024 10:54 am Sacroiliitis November 11, 2024 10:54 am Supervision of high-risk October 292024 10:54am Asthma November 11, 2024 10:54 am History of gestational diabe emily mellitus (GDM) in prior , currentl November 11, 2024 10:54am ADD (attention deficit disorder) December 092024 11:01am Anemia affecting December 09 11:01am Anxiety December 09, 2024 11:0 1am Current smoker December 09, 2024 11:0 1am Family history of BRCA gene positive Brian e 2024 11:01am History of miscarriage, currently pregna nt December 09, 2024 11:01am History of ovarian cyst December 09, 2024 11:01am Hx of section December 09, 2024 1 1:01am Hx of pre-eclampsia in prior , currently December 09, 2024 11:01am Internal derangement of left shoulder Ju ne 2024 11:01am Iron deficiency anemia December 09, 2024 1 1:01am Lumbar radiculopathy December 09, 2024 11: 01am Marijuana use during November 11:01am Obesity affecting December 09, 025 11:01am December 09, 2024 11:0 1am Sacroiliitis December 09, 2024 11:0 1am Supervision of high-risk December 09, 2024 11:01am Asthma December 09, 2024 11:0 1am History of gestational diabe emily mellitus (GDM) in prior , currentl December 09, 2024 11:01am Anemia affecting January 06 1:00pm Anxiety January 06, 2025 1:00p m Current smoker January 06, 2025 1:00p m Gestational diabetes mellitu s (GDM) affecting , antepartum January 06, 2025 1:00pm History of miscarriage, currently pregna nt January 06, 2025 1:00pm Hx of section January 06, 2025 1: 00pm Hx of pre-eclampsia in prior , currently January 06, 2025 1:00pm Iron deficiency anemia January 06, 2025 1: 00pm Marijuana use during January 06, 2025 1:00pm Obesity affecting January 06 1:00pm January 06, 2025 1:00p m Supervision of high-risk January 06, 2025 1:00pm ADD (attention deficit disorder) January 192024 11:25am Anemia affecting January 19 11:25am Anxiety January 19, 2025 11:2 5am Current smoker January 19, 2025 11:2 5am Family history of BRCA gene positive Abdulaziz 2024 11:25am Gestational diabetes mellitu s (GDM) affecting , antepartum January 19, 2025 11:25am History of miscarriage, currently pregna nt January 19, 2025 11:25am History of ovarian cyst January 19, 2025 11:25am Hx of section January 19, 2025 1 1:25am Hx of pre-eclampsia in prior , currently January 19, 2025 11:25am Internal derangement of left shoulder Ju ly 2024 11:25am Iron deficiency anemia January 19, 2025 1 1:25am Lumbar radiculopathy January 19, 2025 11: 25am Marijuana use during December 11:25am Obesity affecting January 19 11:25am January 19, 2025 11:2 5am Sacroiliitis January 19, 2025 11:2 5am Sterilization January 19, 2025 11:2 5am Supervision of high-risk January 19, 2025 11:25am Asthma January 19, 2025 11:2 5am ADD (attention deficit disorder) February 02, 2025 11:14am Anemia affecting February 02 11:14am Anxiety February 02, 2025 11: 14am Current smoker February 02, 2025 11: 14am Family history of BRCA gene positive Aug 2024 11:14am Gestational diabetes mellitu s (GDM) affecting , antepartum February 02, 2025 11:14am History of miscarriage, currently pregna nt February 02, 2025 11:14am History of ovarian cyst February 02, 2025 11:14am Hx of section February 02, 2025 11:14am Hx of pre-eclampsia in prior , currently February 02, 2025 11:14am Internal derangement of left shoulder Au brien 2024 11:14am Iron deficiency anemia February 02, 2025 11:14am Lumbar radiculopathy February 02, 2025 11 :14am Marijuana use during January 11:14am Obesity affecting February 02, 2025 11:14am February 02, 2025 11: 14am Sacroiliitis February 02, 2025 11: 14am Sterilization February 02, 2025 11: 14am Supervision of high-risk Augus t 2024 11:14am Asthma February 02, 2025 11: 14am ADD (attention deficit disorder) February 10, 2025 10:44am Anemia affecting February 10, 2025 10:44am Anxiety February 10, 2025 10 :44am Current smoker February 10, 2025 10 :44am Family history of BRCA gene positive Jan us2024 10:44am Gestational diabetes mellitu s (GDM) affecting , antepartum February 10, 2025 10:44am History of miscarriage, currently pregna nt February 10, 2025 10:44am History of ovarian cyst February 10 10:44am Hx of section February 10, 2025 10:44am Hx of pre-eclampsia in prior , currently February 10, 2025 10:44am Internal derangement of left shoulder Au brien 2024 10:44am Iron deficiency anemia February 10, 2025 10:44am Lumbar radiculopathy February 10, 2025 1 0:44am Marijuana use during February 102024 10:44am Obesity affecting February 10, 2025 10:44am February 10, 2025 10 :44am Sacroiliitis February 10, 2025 10 :44am Sterilization February 10, 2025 10 :44am Supervision of high-risk Augus t 2024 10:44am Asthma February 10, 2025 10 :44am ADD (attention deficit disorder) February 19, 2025 10:02am Anemia affecting February 19, 2025 10:02am Anxiety February 19, 2025 10 :02am Current smoker February 19, 2025 10 :02am Family history of BRCA gene positive Aug ust 2024 10:02am Gestational diabetes mellitu s (GDM) affecting , antepartum February 19, 2025 10:02am History of miscarriage, currently pregna nt February 19, 2025 10:02am History of ovarian cyst February 19 10:02am Hx of section February 19, 2025 10:02am Hx of pre-eclampsia in prior , currently February 19, 2025 10:02am Internal derangement of left shoulder Au brien 2024 10:02am Iron deficiency anemia February 19, 2025 10:02am Lumbar radiculopathy February 19, 2025 1 0:02am Marijuana use during February 192024 10:02am Obesity affecting February 19, 2025 10:02am February 19, 2025 10 :02am Pruritus of in third trimester February 19, 2025 10:02am Sacroiliitis February 19, 2025 10 :02am Sterilization February 19, 2025 10 :02am Supervision of high-risk Augus t 2024 10:02am Asthma February 19, 2025 10 :02am ADD (attention deficit disorder) February 26, 2025 9:00am Anemia affecting February 26, 2025 9:00am Anxiety February 26, 2025 9: 00am Current smoker February 26, 2025 9: 00am Family history of BRCA gene positive Aug ust 2024 9:00am Gestational diabetes mellitu s (GDM) affecting , antepartum February 26, 2025 9:00am Headache in February 26, 2025 9:00am History of miscarriage, currently pregna nt February 26, 2025 9:00am History of ovarian cyst February 26 9:00am Hx of section February 26, 2025 9:00am Hx of pre-eclampsia in prior , currently February 26, 2025 9:00am Internal derangement of left shoulder Au brien 2024 9:00am Iron deficiency anemia February 26, 2025 9:00am Lumbar radiculopathy February 26, 2025 9 :00am Marijuana use during February 262024 9:00am Obesity affecting February 26, 2025 9:00am February 26, 2025 9: 00am Pruritus of in third trimester February 26, 2025 9:00am Sacroiliitis February 26, 2025 9: 00am Sterilization February 26, 2025 9: 00am Supervision of high-risk Augus t 2024 9:00am Asthma February 26, 2025 9: 00am Chief Complaint Admit Date 20 WK OB November 11, 2024 10:54 am 24 WK OB December 09, 2024 11:0 1am 28 wk ob/glucose January 06, 2025 1:00p m LOW BACK PAIN January 11, 2025 2:07 pm LOW BACK PAIN January 11, 2025 3:35 pm 30 wk ob January 19, 2025 11:2 5am 300MG VENOFER January 21, 2025 8:52 am 32 WK OB *C/S wants JV February 02, 2025 11:14am WELL BEING/GROWTH - 32 WEEKS Augus t 2024 12:18pm WELL BEING - 33 WEEKS February 09, 2025 7:46am 33wk ob *per SM February 10, 2025 10 :44am WELL BEING - 34 WEEKS February 16, 2025 1:26pm 34wk ob/nst *SM csection February 19 10:02am WELL BEING - 35 WEEKS February 23, 2025 8:51am 35wk ob/nst *SM csection February 26 9:00am R/O LABOR March 03, 2025 1:35pm R/O LABOR March 03, 2025 3:07pm Reason for Visit Admit Date ADD (attention deficit disorder) October 10:54am Anemia affecting November 11 10:54am Anxiety November 11, 2024 10:54 am Current smoker November 11, 2024 10:54 am Family history of BRCA gene positive November 11, 2024 10:54am History of miscarriage, currently pregna nt November 11, 2024 10:54am History of ovarian cyst November 11, 2024 1 0:54am Hx of section November 11, 2024 10 :54am Hx of pre-eclampsia in prior , currently November 11, 2024 10:54am Internal derangement of left shoulder Ma y 2024 10:54am Iron deficiency anemia November 11, 2024 10 :54am Lumbar radiculopathy November 11, 2024 10:5 4am Marijuana use during November 11, 2024 10:54am Obesity affecting November 11 10:54am November 11, 2024 10:54 am Sacroiliitis November 11, 2024 10:54 am Supervision of high-risk October 292024 10:54am Asthma November 11, 2024 10:54 am History of gestational diabe emily mellitus (GDM) in prior , currentl November 11, 2024 10:54am ADD (attention deficit disorder) December 092024 11:01am Anemia affecting December 09 11:01am Anxiety December 09, 2024 11:0 1am Current smoker December 09, 2024 11:0 1am Family history of BRCA gene positive Brian e 2024 11:01am History of miscarriage, currently pregna nt December 09, 2024 11:01am History of ovarian cyst December 09, 2024 11:01am Hx of section December 09, 2024 1 1:01am Hx of pre-eclampsia in prior , currently December 09, 2024 11:01am Internal derangement of left shoulder Ju ne 2024 11:01am Iron deficiency anemia December 09, 2024 1 1:01am Lumbar radiculopathy December 09, 2024 11: 01am Marijuana use during November 11:01am Obesity affecting December 09, 025 11:01am December 09, 2024 11:0 1am Sacroiliitis December 09, 2024 11:0 1am Supervision of high-risk December 09, 2024 11:01am Asthma December 09, 2024 11:0 1am History of gestational diabe emily mellitus (GDM) in prior , currentl December 09, 2024 11:01am Anemia affecting January 06 1:00pm Anxiety January 06, 2025 1:00p m Current smoker January 06, 2025 1:00p m Gestational diabetes mellitu s (GDM) affecting , antepartum January 06, 2025 1:00pm History of miscarriage, currently pregna nt January 06, 2025 1:00pm Hx of section January 06, 2025 1: 00pm Hx of pre-eclampsia in prior , currently January 06, 2025 1:00pm Iron deficiency anemia January 06, 2025 1: 00pm Marijuana use during January 06, 2025 1:00pm Obesity affecting January 06 1:00pm January 06, 2025 1:00p m Supervision of high-risk January 06, 2025 1:00pm ADD (attention deficit disorder) January 192024 11:25am Anemia affecting January 19 11:25am Anxiety January 19, 2025 11:2 5am Current smoker January 19, 2025 11:2 5am Family history of BRCA gene positive Abdulaziz y 2024 11:25am Gestational diabetes mellitu s (GDM) affecting , antepartum January 19, 2025 11:25am History of miscarriage, currently pregna nt January 19, 2025 11:25am History of ovarian cyst January 19, 2025 11:25am Hx of section January 19, 2025 1 1:25am Hx of pre-eclampsia in prior , currently January 19, 2025 11:25am Internal derangement of left shoulder Ju ly 2024 11:25am Iron deficiency anemia January 19, 2025 1 1:25am Lumbar radiculopathy January 19, 2025 11: 25am Marijuana use during December 11:25am Obesity affecting January 19 025 11:25am January 19, 2025 11:2 5am Sacroiliitis January 19, 2025 11:2 5am Sterilization January 19, 2025 11:2 5am Supervision of high-risk January 19, 2025 11:25am Asthma January 19, 2025 11:2 5am ADD (attention deficit disorder) February 02, 2025 11:14am Anemia affecting February 02, 2 025 11:14am Anxiety February 02, 2025 11: 14am Current smoker February 02, 2025 11: 14am Family history of BRCA gene positive Aug ust 2024 11:14am Gestational diabetes mellitu s (GDM) affecting , antepartum February 02, 2025 11:14am History of miscarriage, currently pregna nt February 02, 2025 11:14am History of ovarian cyst February 02, 2025 11:14am Hx of section February 02, 2025 11:14am Hx of pre-eclampsia in prior , currently February 02, 2025 11:14am Internal derangement of left shoulder Au brien 2024 11:14am Iron deficiency anemia February 02, 2025 11:14am Lumbar radiculopathy February 02, 2025 11 :14am Marijuana use during January 11:14am Obesity affecting February 02, 2025 11:14am February 02, 2025 11: 14am Sacroiliitis February 02, 2025 11: 14am Sterilization February 02, 2025 11: 14am Supervision of high-risk Augus t 2024 11:14am Asthma February 02, 2025 11: 14am ADD (attention deficit disorder) February 10, 2025 10:44am Anemia affecting February 10, 2025 10:44am Anxiety February 10, 2025 10 :44am Current smoker February 10, 2025 10 :44am Family history of BRCA gene positive Aug ust 2024 10:44am Gestational diabetes mellitu s (GDM) affecting , antepartum February 10, 2025 10:44am History of miscarriage, currently pregna nt February 10, 2025 10:44am History of ovarian cyst February 10 10:44am Hx of section February 10, 2025 10:44am Hx of pre-eclampsia in prior , currently February 10, 2025 10:44am Internal derangement of left shoulder Au brien 2024 10:44am Iron deficiency anemia February 10, 2025 10:44am Lumbar radiculopathy February 10, 2025 1 0:44am Marijuana use during February 102024 10:44am Obesity affecting February 10, 2025 10:44am February 10, 2025 10 :44am Sacroiliitis February 10, 2025 10 :44am Sterilization February 10, 2025 10 :44am Supervision of high-risk Augus t 2024 10:44am Asthma February 10, 2025 10 :44am ADD (attention deficit disorder) February 19, 2025 10:02am Anemia affecting February 19, 2025 10:02am Anxiety February 19, 2025 10 :02am Current smoker February 19, 2025 10 :02am Family history of BRCA gene positive Aug ust 2024 10:02am Gestational diabetes mellitu s (GDM) affecting , antepartum February 19, 2025 10:02am History of miscarriage, currently pregna nt February 19, 2025 10:02am History of ovarian cyst February 19 10:02am Hx of section February 19, 2025 10:02am Hx of pre-eclampsia in prior , currently February 19, 2025 10:02am Internal derangement of left shoulder Au 2024 10:02am Iron deficiency anemia February 19, 2025 10:02am Lumbar radiculopathy February 19, 2025 1 0:02am Marijuana use during February 192024 10:02am Obesity affecting February 19, 2025 10:02am February 19, 2025 10 :02am Pruritus of in third trimester February 19, 2025 10:02am Sacroiliitis February 19, 2025 10 :02am Sterilization February 19, 2025 10 :02am Supervision of high-risk Augus t 2024 10:02am Asthma February 19, 2025 10 :02am ADD (attention deficit disorder) February 26, 2025 9:00am Anemia affecting February 26, 2025 9:00am Anxiety February 26, 2025 9: 00am Current smoker February 26, 2025 9: 00am Family history of BRCA gene positive Aug ust 2024 9:00am Gestational diabetes mellitu s (GDM) affecting , antepartum February 26, 2025 9:00am Headache in February 26, 2025 9:00am History of miscarriage, currently pregna nt February 26, 2025 9:00am History of ovarian cyst February 26 9:00am Hx of section February 26, 2025 9:00am Hx of pre-eclampsia in prior , currently February 26, 2025 9:00am Internal derangement of left shoulder Au brien 2024 9:00am Iron deficiency anemia February 26, 2025 9:00am Lumbar radiculopathy February 26, 2025 9 :00am Marijuana use during February 262024 9:00am Obesity affecting February 26, 2025 9:00am February 26, 2025 9: 00am Pruritus of in third trimester February 26, 2025 9:00am Sacroiliitis February 26, 2025 9: 00am Sterilization February 26, 2025 9: 00am Supervision of high-risk Augus t 2024 9:00am Asthma February 26, 2025 9: 00am False labor March 03, 2025 1:35pm Chief Complaint Admit Date 24 WK OB December 09, 2024 11:0 1am 28 wk ob/glucose January 06, 2025 1:00p m LOW BACK PAIN January 11, 2025 2:07 pm LOW BACK PAIN January 11, 2025 3:35 pm 30 wk ob January 19, 2025 11:2 5am 300MG VENOFER January 21, 2025 8:52 am 32 WK OB *C/S wants JV February 02, 2025 11:14am WELL BEING/GROWTH - 32 WEEKS Augus 2024 12:18pm WELL BEING - 33 WEEKS February 09, 2025 7:46am 33wk ob *per SM February 10, 2025 10 :44am WELL BEING - 34 WEEKS February 16, 2025 1:26pm 34wk ob/nst *SM csection February 19 10:02am WELL BEING - 35 WEEKS February 23, 2025 8:51am 35wk ob/nst *SM csection February 26 9:00am R/O LABOR March 03, 2025 1:35pm R/O LABOR March 03, 2025 3:07pm 37wk ob/nst *SM csection March 12, 2025 10:40am Reason for Visit Admit Date ADD (attention deficit disorder) December 092024 11:01am Anemia affecting December 09 11:01am Anxiety December 09, 2024 11:0 1am Current smoker December 09, 2024 11:0 1am Family history of BRCA gene positive Brian e 2024 11:01am History of miscarriage, currently pregna nt December 09, 2024 11:01am History of ovarian cyst December 09, 2024 11:01am Hx of section December 09, 2024 1 1:01am Hx of pre-eclampsia in prior , currently December 09, 2024 11:01am Internal derangement of left shoulder Ju ne 2024 11:01am Iron deficiency anemia December 09, 2024 1 1:01am Lumbar radiculopathy December 09, 2024 11: 01am Marijuana use during November 11:01am Obesity affecting December 09, 025 11:01am December 09, 2024 11:0 1am Sacroiliitis December 09, 2024 11:0 1am Supervision of high-risk December 09, 2024 11:01am Asthma December 09, 2024 11:0 1am History of gestational diabe emily mellitus (GDM) in prior , currentl December 09, 2024 11:01am Anemia affecting January 06 1:00pm Anxiety January 06, 2025 1:00p m Current smoker January 06, 2025 1:00p m Gestational diabetes mellitu s (GDM) affecting , antepartum January 06, 2025 1:00pm History of miscarriage, currently pregna nt January 06, 2025 1:00pm Hx of section January 06, 2025 1: 00pm Hx of pre-eclampsia in prior , currently January 06, 2025 1:00pm Iron deficiency anemia January 06, 2025 1: 00pm Marijuana use during January 06, 2025 1:00pm Obesity affecting January 06 1:00pm January 06, 2025 1:00p m Supervision of high-risk January 06, 2025 1:00pm ADD (attention deficit disorder) January 192024 11:25am Anemia affecting January 19 11:25am Anxiety January 19, 2025 11:2 5am Current smoker January 19, 2025 11:2 5am Family history of BRCA gene positive Abdulaziz y 2024 11:25am Gestational diabetes mellitu s (GDM) affecting , antepartum January 19, 2025 11:25am History of miscarriage, currently pregna nt January 19, 2025 11:25am History of ovarian cyst January 19, 2025 11:25am Hx of section January 19, 2025 1 1:25am Hx of pre-eclampsia in prior , currently January 19, 2025 11:25am Internal derangement of left shoulder Ju ly 2024 11:25am Iron deficiency anemia January 19, 2025 1 1:25am Lumbar radiculopathy January 19, 2025 11: 25am Marijuana use during December 11:25am Obesity affecting January 19 11:25am January 19, 2025 11:2 5am Sacroiliitis January 19, 2025 11:2 5am Sterilization January 19, 2025 11:2 5am Supervision of high-risk January 19, 2025 11:25am Asthma January 19, 2025 11:2 5am ADD (attention deficit disorder) February 02, 2025 11:14am Anemia affecting February 02 11:14am Anxiety February 02, 2025 11: 14am Current smoker February 02, 2025 11: 14am Family history of BRCA gene positive Aug us2024 11:14am Gestational diabetes mellitu s (GDM) affecting , antepartum February 02, 2025 11:14am History of miscarriage, currently pregna nt February 02, 2025 11:14am History of ovarian cyst February 02, 2025 11:14am Hx of section February 02, 2025 11:14am Hx of pre-eclampsia in prior , currently February 02, 2025 11:14am Internal derangement of left shoulder Au 2024 11:14am Iron deficiency anemia February 02, 2025 11:14am Lumbar radiculopathy February 02, 2025 11 :14am Marijuana use during January 11:14am Obesity affecting February 02, 2025 11:14am February 02, 2025 11: 14am Sacroiliitis February 02, 2025 11: 14am Sterilization February 02, 2025 11: 14am Supervision of high-risk Augus t 2024 11:14am Asthma February 02, 2025 11: 14am ADD (attention deficit disorder) February 10, 2025 10:44am Anemia affecting February 10, 2025 10:44am Anxiety February 10, 2025 10 :44am Current smoker February 10, 2025 10 :44am Family history of BRCA gene positive Aug ust 2024 10:44am Gestational diabetes mellitu s (GDM) affecting , antepartum February 10, 2025 10:44am History of miscarriage, currently pregna nt February 10, 2025 10:44am History of ovarian cyst February 10 10:44am Hx of section February 10, 2025 10:44am Hx of pre-eclampsia in prior , currently February 10, 2025 10:44am Internal derangement of left shoulder Au 2024 10:44am Iron deficiency anemia February 10, 2025 10:44am Lumbar radiculopathy February 10, 2025 1 0:44am Marijuana use during February 102024 10:44am Obesity affecting February 10, 2025 10:44am February 10, 2025 10 :44am Sacroiliitis February 10, 2025 10 :44am Sterilization February 10, 2025 10 :44am Supervision of high-risk Augus t 2024 10:44am Asthma February 10, 2025 10 :44am ADD (attention deficit disorder) February 19, 2025 10:02am Anemia affecting February 19, 2025 10:02am Anxiety February 19, 2025 10 :02am Current smoker February 19, 2025 10 :02am Family history of BRCA gene positive Aug ust 2024 10:02am Gestational diabetes mellitu s (GDM) affecting , antepartum February 19, 2025 10:02am History of miscarriage, currently pregna nt February 19, 2025 10:02am History of ovarian cyst February 19 10:02am Hx of section February 19, 2025 10:02am Hx of pre-eclampsia in prior , currently February 19, 2025 10:02am Internal derangement of left shoulder Au brien 2024 10:02am Iron deficiency anemia February 19, 2025 10:02am Lumbar radiculopathy February 19, 2025 1 0:02am Marijuana use during February 192024 10:02am Obesity affecting February 19, 2025 10:02am February 19, 2025 10 :02am Pruritus of in third trimester February 19, 2025 10:02am Sacroiliitis February 19, 2025 10 :02am Sterilization February 19, 2025 10 :02am Supervision of high-risk Augus t 2024 10:02am Asthma February 19, 2025 10 :02am ADD (attention deficit disorder) February 26, 2025 9:00am Anemia affecting February 26, 2025 9:00am Anxiety February 26, 2025 9: 00am Current smoker February 26, 2025 9: 00am Family history of BRCA gene positive Jan ust 2024 9:00am Gestational diabetes mellitu s (GDM) affecting , antepartum February 26, 2025 9:00am Headache in February 26, 2025 9:00am History of miscarriage, currently pregna nt February 26, 2025 9:00am History of ovarian cyst February 26 9:00am Hx of section February 26, 2025 9:00am Hx of pre-eclampsia in prior , currently February 26, 2025 9:00am Internal derangement of left shoulder Au brien 2024 9:00am Iron deficiency anemia February 26, 2025 9:00am Lumbar radiculopathy February 26, 2025 9 :00am Marijuana use during February 262024 9:00am Obesity affecting February 26, 2025 9:00am February 26, 2025 9: 00am Pruritus of in third trimester February 26, 2025 9:00am Sacroiliitis February 26, 2025 9: 00am Sterilization February 26, 2025 9: 00am Supervision of high-risk Augus t 2024 9:00am Asthma February 26, 2025 9: 00am False labor March 03, 2025 1:35pm ADD (attention deficit disorder) Septemb er 2024 10:40am Anemia affecting March 10:40am Anxiety March 12, 2025 10:40am Current smoker March 12, 2025 10:40am False labor March 12, 2025 10:40am Family history of BRCA gene positive Sep tember 2024 10:40am Gestational diabetes mellitu s (GDM) affecting , antepartum March 12, 2025 10:40am Headache in March 12 10:40am History of miscarriage, currently pregna nt March 12, 2025 10:40am History of ovarian cyst March 12, 2025 10:40am Hx of section March 12 10:40am Hx of pre-eclampsia in prior , currently March 12, 2025 10:40am Internal derangement of left shoulder Se pt2024 10:40am Iron deficiency anemia March 12 10:40am Lumbar radiculopathy March 12 10:40am Marijuana use during March 12, 2025 10:40am Obesity affecting March 122024 10:40am March 12, 2025 10:40am Pruritus of in third trimester March 12, 2025 10:40am Sacroiliitis March 12, 2025 10:40am Sterilization March 12, 2025 10:40am Supervision of high-risk Septe mb 2024 10:40am Asthma March 12, 2025 10:40am Chief Complaint Admit Date 24 WK OB December 09, 2024 11:0 1am 28 wk ob/glucose January 06, 2025 1:00p m LOW BACK PAIN January 11, 2025 2:07 pm LOW BACK PAIN January 11, 2025 3:35 pm 30 wk ob January 19, 2025 11:2 5am 300MG VENOFER January 21, 2025 8:52 am 32 WK OB *C/S wants JV February 02, 2025 11:14am WELL BEING/GROWTH - 32 WEEKS Augus t 2024 12:18pm WELL BEING - 33 WEEKS February 09, 2025 7:46am 33wk ob *per SM February 10, 2025 10 :44am WELL BEING - 34 WEEKS February 16, 2025 1:26pm 34wk ob/nst *SM csection February 19 10:02am WELL BEING - 35 WEEKS February 23, 2025 8:51am 35wk ob/nst *SM csection February 26 9:00am R/O LABOR March 03, 2025 1:35pm R/O LABOR March 03, 2025 3:07pm 37wk ob/nst *SM csection March 12, 2025 10:40am REPEAT C SECTION March 12, 2025 11:40am REPEAT C SECTION March 12, 2025 5:48pm REPEAT C SECTION March 13, 2025 8:28am REPEAT C SECTION March 14, 2025 11:15am REPEAT C SECTION March 15, 2025 11:24am Reason for Visit Admit Date ADD (attention deficit disorder) December 092024 11:01am Anemia affecting December 09 11:01am Anxiety December 09, 2024 11:0 1am Current smoker December 09, 2024 11:0 1am Family history of BRCA gene positive Brian e 2024 11:01am History of miscarriage, currently pregna nt December 09, 2024 11:01am History of ovarian cyst December 09, 2024 11:01am Hx of section December 09, 2024 1 1:01am Hx of pre-eclampsia in prior , currently December 09, 2024 11:01am Internal derangement of left shoulder Ju 2024 11:01am Iron deficiency anemia December 09, 2024 1 1:01am Lumbar radiculopathy December 09, 2024 11: 01am Marijuana use during November 11:01am Obesity affecting December 09 025 11:01am December 09, 2024 11:0 1am Sacroiliitis December 09, 2024 11:0 1am Supervision of high-risk December 09, 2024 11:01am Asthma December 09, 2024 11:0 1am History of gestational diabe emily mellitus (GDM) in prior , currentl December 09, 2024 11:01am Anemia affecting January 06 1:00pm Anxiety January 06, 2025 1:00p m Current smoker January 06, 2025 1:00p m Gestational diabetes mellitu s (GDM) affecting , antepartum January 06, 2025 1:00pm History of miscarriage, currently pregna nt January 06, 2025 1:00pm Hx of section January 06, 2025 1: 00pm Hx of pre-eclampsia in prior , currently January 06, 2025 1:00pm Iron deficiency anemia January 06, 2025 1: 00pm Marijuana use during January 06, 2025 1:00pm Obesity affecting January 06 1:00pm January 06, 2025 1:00p m Supervision of high-risk January 06, 2025 1:00pm ADD (attention deficit disorder) January 192024 11:25am Anemia affecting January 19 11:25am Anxiety January 19, 2025 11:2 5am Current smoker January 19, 2025 11:2 5am Family history of BRCA gene positive Abdulaziz 2024 11:25am Gestational diabetes mellitu s (GDM) affecting , antepartum January 19, 2025 11:25am History of miscarriage, currently pregna nt January 19, 2025 11:25am History of ovarian cyst January 19, 2025 11:25am Hx of section January 19, 2025 1 1:25am Hx of pre-eclampsia in prior , currently January 19, 2025 11:25am Internal derangement of left shoulder [place] 2024 11:25am Iron deficiency anemia January 19, 2025 1 1:25am Lumbar radiculopathy January 19, 2025 11: 25am Marijuana use during December 11:25am Obesity affecting January 19 11:25am January 19, 2025 11:2 5am Sacroiliitis January 19, 2025 11:2 5am Sterilization January 19, 2025 11:2 5am Supervision of high-risk January 19, 2025 11:25am Asthma January 19, 2025 11:2 5am ADD (attention deficit disorder) February 02, 2025 11:14am Anemia affecting [place] [facility], 2 025 11:14am Anxiety February 02, 2025 11: 14am Current smoker February 02, 2025 11: 14am Family history of BRCA gene positive Aug ust 2024 11:14am Gestational diabetes mellitu s (GDM) affecting , antepartum February 02, 2025 11:14am History of miscarriage, currently pregna nt February 02, 2025 11:14am History of ovarian cyst February 02, 2025 11:14am Hx of section February 02, 2025 11:14am Hx of pre-eclampsia in prior , currently February 02, 2025 11:14am Internal derangement of left shoulder [place] 2024 11:14am Iron deficiency anemia February 02, 2025 11:14am Lumbar radiculopathy February 02, 2025 11 :14am Marijuana use during January 11:14am Obesity affecting February 02, 2025 11:14am February 02, 2025 11: 14am Sacroiliitis February 02, 2025 11: 14am Sterilization February 02, 2025 11: 14am Supervision of high-risk Augus t 2024 11:14am Asthma February 02, 2025 11: 14am ADD (attention deficit disorder) February 10, 2025 10:44am Anemia affecting February 10, 2025 10:44am Anxiety February 10, 2025 10 :44am Current smoker February 10, 2025 10 :44am Family history of BRCA gene positive Aug ust 2024 10:44am Gestational diabetes mellitu s (GDM) affecting , antepartum February 10, 2025 10:44am History of miscarriage, currently pregna nt February 10, 2025 10:44am History of ovarian cyst February 10 10:44am Hx of section February 10, 2025 10:44am Hx of pre-eclampsia in prior , currently February 10, 2025 10:44am Internal derangement of left shoulder [place] 2024 10:44am Iron deficiency anemia February 10, 2025 10:44am Lumbar radiculopathy February 10, 2025 1 0:44am Marijuana use during February 102024 10:44am Obesity affecting February 10, 2025 10:44am February 10, 2025 10 :44am Sacroiliitis February 10, 2025 10 :44am Sterilization February 10, 2025 10 :44am Supervision of high-risk Augus t 2024 10:44am Asthma February 10, 2025 10 :44am ADD (attention deficit disorder) February 19, 2025 10:02am Anemia affecting February 19, 2025 10:02am Anxiety February 19, 2025 10 :02am Current smoker February 19, 2025 10 :02am Family history of BRCA gene positive Aug ust 2024 10:02am Gestational diabetes mellitu s (GDM) affecting , antepartum February 19, 2025 10:02am History of miscarriage, currently pregna nt February 19, 2025 10:02am History of ovarian cyst February 19 10:02am Hx of section February 19, 2025 10:02am Hx of pre-eclampsia in prior , currently February 19, 2025 10:02am Internal derangement of left shoulder [place] 2024 10:02am Iron deficiency anemia February 19, 2025 10:02am Lumbar radiculopathy February 19, 2025 1 0:02am Marijuana use during February 192024 10:02am Obesity affecting February 19, 2025 10:02am February 19, 2025 10 :02am Sacroiliitis February 19, 2025 10 :02am Sterilization February 19, 2025 10 :02am Supervision of high-risk Augus t 2024 10:02am Asthma February 19, 2025 10 :02am Pruritus of in third trimester February 19, 2025 10:02am ADD (attention deficit disorder) February 26, 2025 9:00am Anemia affecting February 26, 2025 9:00am Anxiety February 26, 2025 9: 00am Current smoker February 26, 2025 9: 00am Family history of BRCA gene positive Aug ust 2024 9:00am Gestational diabetes mellitu s (GDM) affecting , antepartum February 26, 2025 9:00am History of miscarriage, currently pregna nt February 26, 2025 9:00am History of ovarian cyst February 26 9:00am Hx of section February 26, 2025 9:00am Hx of pre-eclampsia in prior , currently February 26, 2025 9:00am Internal derangement of left shoulder [place] 2024 9:00am Iron deficiency anemia February 26, 2025 9:00am Lumbar radiculopathy February 26, 2025 9 :00am Marijuana use during February 262024 9:00am Obesity affecting February 26, 2025 9:00am February 26, 2025 9: 00am Sacroiliitis February 26, 2025 9: 00am Sterilization February 26, 2025 9: 00am Supervision of high-risk Augus t 2024 9:00am Asthma February 26, 2025 9: 00am Headache in February 26, 2025 9:00am Pruritus of in third trimester February 26, 2025 9:00am False labor March 03, 2025 1:35pm ADD ([facility] deficit disorder) [facility] 10:40am Anemia affecting March 10:40am Anxiety March 12, 2025 10:40am Current smoker March 12, 2025 10:40am Family history of BRCA gene positive Sep tember 2024 10:40am Gestational diabetes mellitu s (GDM) affecting , antepartum March 12, 2025 10:40am History of miscarriage, currently pregna nt March 12, 2025 10:40am History of ovarian cyst March 12, 2025 10:40am Hx of section March 12 10:40am Hx of pre-eclampsia in prior , currently March 12, 2025 10:40am Internal derangement of left shoulder [place] 2024 10:40am Iron deficiency anemia March 12 10:40am Lumbar radiculopathy March 12 10:40am Marijuana use during March 12, 2025 10:40am Obesity affecting March 122024 10:40am March 12, 2025 10:40am Sacroiliitis March 12, 2025 10:40am Sterilization March 12, 2025 10:40am Supervision of high-risk Septe mber 2024 10:40am Asthma March 12, 2025 10:40am False labor March 12, 2025 10:40am Headache in March 12 10:40am Pruritus of in third trimester March 12, 2025 10:40am ADD (attention deficit disorder) [facility] 2024 11:40am Anemia affecting March 11:40am Anxiety March 12, 2025 11:40am delivery delivered March 122024 11:40am Current smoker March 12, 2025 11:40am Gestational diabetes mellitu s (GDM) affecting , antepartum March 12, 2025 11:40am Gestational hypertension March 12, 2025 11:40am History of miscarriage, currently pregna nt March 12, 2025 11:40am Hx of section March 12 11:40am Hx of pre-eclampsia in prior , currently March 12, 2025 11:40am Iron deficiency anemia March 12 11:40am Marijuana use during March 12, 2025 11:40am Obesity affecting March 122024 11:40am March 12, 2025 11:40am Sterilization March 12, 2025 11:40am Supervision of high-risk [facility] 2024 11:40am Additional Source Comments INFORMATION SOURCE (unrecogn ized section and content) DATE CREATED AUTHOR 12/20/2017 [facility] DATE CREATED AUTHOR AUTHOR'S ORGANIZ ATION 01/18/2023 [facility] DATE CREATED AUTHOR AUTHOR'S ORGANIZ ATION 12/19/2023 [facility] ([place]) DATE CREATED AUTHOR AUTHOR'S ORGANIZ ATION 09/17/2024 [facility] DATE CREATED AUTHOR AUTHOR'S ORGANIZ ATION 10/17/2024 [facility] DATE CREATED AUTHOR AUTHOR'S ORGANIZ ATION 11/06/2024 [facility] DATE CREATED AUTHOR AUTHOR'S ORGANIZ ATION 03/19/2025 [facility] Source Comments (unrecognize d section and content) In the event this informatio n is protected by the Federal Confidentiality of Alcohol and Drug Abuse Patient Records regulations: The Federal rules restrict any use of the information to criminally investigate or prosecute any alcohol or drug abuse patient.[facility] the event this information is protected by the Federal Confidentiality of Alcohol and Drug Abuse Patient Records regulations: The Federal rules restrict any use of the information to criminally investigate or prosecute any alcohol or drug abuse patient.[facility] the event this information is protected by the Federal Confidentiality of Alcohol and Drug Abuse Patient Records regulations: The Federal rules restrict any use of the information to criminally investigate or prosecute any alcohol or drug abuse patient.[facility] the event this information is protected by the Federal Confidentiality of Alcohol and Drug Abuse Patient Records regulations: The Federal rules restrict any use of the information to criminally investigate or prosecute any alcohol or drug abuse patient.[facility] the event this information is protected by the Federal Confidentiality of Alcohol and Drug Abuse Patient Records regulations: The Federal rules restrict any use of the information to criminally investigate or prosecute any alcohol or drug abuse patient.[facility] the event this information is protected by the Federal Confidentiality of Alcohol and Drug Abuse Patient Records regulations: The Federal rules restrict any use of the information to criminally investigate or prosecute any alcohol or drug abuse patient.[facility] the event this information is protected by the Federal Confidentiality of Alcohol and Drug Abuse Patient Records regulations: The Federal rules restrict any use of the information to criminally investigate or prosecute any alcohol or drug abuse patient.[facility] the event this information is protected by the Federal Confidentiality of Alcohol and Drug Abuse Patient Records regulations: The Federal rules restrict any use of the information to criminally investigate or prosecute any alcohol or drug abuse patient.[facility] the event this information is protected by the Federal Confidentiality of Alcohol and Drug Abuse Patient Records regulations: The Federal rules restrict any use of the information to criminally investigate or prosecute any alcohol or drug abuse patient.[facility] the event this information is protected by the Federal Confidentiality of Alcohol and Drug Abuse Patient Records regulations: The Federal rules restrict any use of the information to criminally investigate or prosecute any alcohol or drug abuse patient.[facility] the event this information is protected by the Federal Confidentiality of Alcohol and Drug Abuse Patient Records regulations: The Federal rules restrict any use of the information to criminally investigate or prosecute any alcohol or drug abuse patient.[facility] the event this information is protected by the Federal Confidentiality of Alcohol and Drug Abuse Patient Records regulations: The Federal rules restrict any use of the information to criminally investigate or prosecute any alcohol or drug abuse patient.[facility] Reason for Visit (unrecogniz ed section and content) Reason Comments Dental Problem right top wisdom too th x 2 days Reason Comments Menstrual Problem irregular menses Reason Comments Cough Chest congestion, th roat pain, + exposure Flu x 5 days. Reason Comments Ear Pain bilateral, headache and sore throat x 1 day Reason Comments Dental Problem R lower back tooth b roken off, x 3 days Reason Comments Urinary Frequency burning with urinati on x 1 day Reason Comments Patient Question Reason Comments Reason Comments Results Reason Comments Dental Problem R side lower, tooth broke off and stuck in gum, x 1 dayPainfulResources given for dentist Care Team (unrecognized sect ion and content) Care Team Personnel Name: PILO ARMAS WATER RESOURCE CONSULTANT - DASHBOARD DEVELOPER Position: P4 Advanced Practice Nurse Member Role: Primary Care Physician Address: Address: [address] [place] [id number] [place] Care Team Related Persons Name: JAVAD ALLEN Care Teams (unrecognized sec tion and content) Team Status: Active Member Role Status Dates No Primary Care Physician Family Provider Active Pilo Armas TATTOO IDENTIFIER, TATTOO IDENTIFIER-C Primary Care Provider Active Team Status: Inactive Member Role Status Dates Pilo Armas TATTOO IDENTIFIER, TATTOO IDENTIFIER-C Primary Care Provider Active Dr. Cas Kang MD Emergency Provider Active Team Status: Inactive Member Role Status Dates Pilo Armas TATTOO IDENTIFIER, TATTOO IDENTIFIER-C Primary Care Provider, Referring Provider Active Shreya Pham CNM Attending Provider Active Team Status: Inactive Member Role Status Dates Pilo Armas TATTOO IDENTIFIER, TATTOO IDENTIFIER-C Primary Care Provider, Referring Provider Active Lorrie Arce TATTOO IDENTIFIER, TATTOO IDENTIFIER-C Attending Provider Active Team Status: Inactive Member Role Status Dates Pilo Armas TATTOO IDENTIFIER, TATTOO IDENTIFIER-C Primary Care Provider, Referring Provider Active Luke Perez PA, PA Attending Provider Active Team Status: Inactive Member Role Status Dates Pilo Armas TATTOO IDENTIFIER, TATTOO IDENTIFIER-C Primary Care Provider, Referring Provider Active Ever Mcallister PA, PA Attending Provider Active Team Status: Inactive Member Role Status Dates Pilo Armas TATTOO IDENTIFIER, TATTOO IDENTIFIER-C Primary Care Provider Active Dr. Davidson Yi MD Attending Provider Active Team Status: Inactive Member Role Status Dates Pilo Armas TATTOO IDENTIFIER, TATTOO IDENTIFIER-C Primary Care Provider Active Dr. Cas Kang MD Attending Provider, Emergency Provi arpan Active Team Status: Inactive Member Role Status Dates Pilo Armas TATTOO IDENTIFIER, TATTOO IDENTIFIER-C Primary Care Provider Active Dr. [place] Pro DO Attending Provider, Emergency Provide r Active Team Status: Inactive Member Role Status Dates Pilo Armas TATTOO IDENTIFIER, TATTOO IDENTIFIER-C Primary Care Provider Active Shreya Pham CNM Attending Provider, Referring Pr ovider Active Team Status: Inactive Member Role Status Dates Pilo Armas TATTOO IDENTIFIER, TATTOO IDENTIFIER-C Primary Care Provider, Referring Provider Active Andres Eubanks TATTOO IDENTIFIER, TATTOO IDENTIFIER-C Attending Provider Active Team Status: Inactive Member Role Status Dates Pilo Armas TATTOO IDENTIFIER, TATTOO IDENTIFIER-C Primary Care Provider, Attending Provider Active Shreya Pham CNM Other Provider Active Lorrie Arce TATTOO IDENTIFIER, TATTOO IDENTIFIER-C Other Provider Active Team Status: Active Member Role Status Dates Pilo Armas TATTOO IDENTIFIER, TATTOO IDENTIFIER-C Primary Care Provider, Referring Provider Active Dr. James Garcia DO Attending Provider, Other Prov ider Active Team Status: Inactive Member Role Status Dates Pilo Armas TATTOO IDENTIFIER, TATTOO IDENTIFIER-C Primary Care Provider, Referring Provider Active Dr. James Garcia DO Attending Provider Active Team Status: Inactive Member Role Status Dates Pilo Armas TATTOO IDENTIFIER, TATTOO IDENTIFIER-C Primary Care Provider Active Dr. Jose Posadas DO Emergency Provider Active Team Status: Inactive Member Role Status Dates Pilo Armas TATTOO IDENTIFIER, TATTOO IDENTIFIER-C Primary Care Provider Active Dr. Jose Posadas DO Attending Provider, Emergency P jevon Active Team Status: Inactive Member Role Status Dates Pilo Armas TATTOO IDENTIFIER, TATTOO IDENTIFIER-C Primary Care Provider Active Dr. Jeremiah Edmondson DO Emergency Provider Active Team Status: Inactive Member Role Status Dates Pilo Armas TATTOO IDENTIFIER, TATTOO IDENTIFIER-C Primary Care Provider, Referring Provider Active Parvin Curry TATTOO IDENTIFIER, TATTOO IDENTIFIER-C Attending Provider Active Team Status: Inactive Member Role Status Dates Pilo Armas TATTOO IDENTIFIER, TATTOO IDENTIFIER-C Primary Care Provider Active Dr. Chey Lanier MD Attending Provider, Emergency Provider Active Team Status: Inactive Member Role Status Dates Pilo Armas TATTOO IDENTIFIER, TATTOO IDENTIFIER-C Primary Care Provider Active Dr. Jeremiah Edmondson DO Attending Provider, Emergency Provider Active Team Status: Inactive Member Role Status Dates Pilo Armas TATTOO IDENTIFIER, TATTOO IDENTIFIER-C Primary Care Provider Active Parvin Curry TATTOO IDENTIFIER, TATTOO IDENTIFIER-C Attending Provider Active Team Status: Inactive Member Role Status Dates Pilo Armas TATTOO IDENTIFIER, TATTOO IDENTIFIER-C Primary Care Provider, Referring Provider Active Renetta Nielsen CNM Attending Provider Active Team Status: Inactive Member Role Status Dates Pilo Armas TATTOO IDENTIFIER, TATTOO IDENTIFIER-C Primary Care Provider Active Renetta Nielsen CNM Attending Provider, Referring Pro vider Active Dr. James Garcia DO Other Provider Active Team Status: Inactive Member Role Status Dates Pilo Armas TATTOO IDENTIFIER, TATTOO IDENTIFIER-C Primary Care Provider Active Dr. Pablo Leary MD Emergency Provider Active Team Status: Inactive Member Role Status Dates Pilo Armas TATTOO IDENTIFIER, TATTOO IDENTIFIER-C Primary Care Provider Active Dr. Pablo Leary MD Attending Provider, Emergency Pro vider Active Team Status: Inactive Member Role Status Dates Pilo Armas TATTOO IDENTIFIER, TATTOO IDENTIFIER-C Primary Care Provider Active Dr. Nat Bobby DO Emergency Provider Active Deputy County Attorney Relationship Specialty Start Date End Date Pilo Armas, DASHBOARD DEVELOPER [address] [place] [address] PCP - General Family Medicine 08/24/22 Team Status: Inactive Member Role Status Dates Pilo Armas TATTOO IDENTIFIER, TATTOO IDENTIFIER-C Primary Care Provider Active Dr. Nat Bobby DO Attending Provider, Emergency Pro vider Active Team Status: Inactive Member Role Status Dates Pilo Armas TATTOO IDENTIFIER, TATTOO IDENTIFIER-C Primary Care Provider Active Dr. Rose Marie Morales MD Attending Provider, Referr ing Provider Active Team Status: Active Member Role Status Dates No Primary Care Physician Family Provider Active Guy Cotton NP-Sai Primary Care Provider Active Team Status: Inactive Member Role Status Dates Pilo Armas TATTOO IDENTIFIER, TATTOO IDENTIFIER-C Primary Care Provider, Referring Provider Active Dr. Zeferino Kwon MD Attending Provider Active Team Status: Inactive Member Role Status Dates Pilo Armas TATTOO IDENTIFIER, TATTOO IDENTIFIER-C Primary Care Provider, Referring Provider Active CHRISTEL Katz Attending Provider Active Team Status: Inactive Member Role Status Dates Guy Cotton NP-C Primary Care Provider, Referring Provider Active Luke Perez PA, PA Attending Provider Active Team Status: Inactive Member Role Status Dates CHRISTEL Katz Primary Care Provid er, Attending Provider, Referring Provider Active Team Status: Active Member Role Status Dates Guy Cotton TATTOO IDENTIFIER-C Primary Care Provider Active MICHAEL Foster Attending Provider, Referring Pr ovider Active Team Status: Inactive Member Role Status Dates Guy Cotton TATTOO IDENTIFIER-C Primary Care Provider Active MICHAEL Foster Attending Provider, Referring Pr ovider Active Team Status: Inactive Member Role Status Dates Guy Cotton TATTOO IDENTIFIER-C Primary Care Provider Active Dr. Leann Nguyen MD Attending Provider, Referring Pr ovider Active Deputy County Attorney Relationship Specialty Start Date End Date Guy Cotton, WATER RESOURCE CONSULTANT.DASHBOARD DEVELOPER PCP - General Cardiology 10/21/23 Deputy County Attorney Relationship Specialty Start Date End Date Guy Cotton, WATER RESOURCE CONSULTANT.DASHBOARD DEVELOPER PCP - General Cardiology 10/21/23 Deputy County Attorney Relationship Specialty Start Date End Date Guy Cotton, WATER RESOURCE CONSULTANT.DASHBOARD DEVELOPER PCP - General Cardiology 10/21/23 Deputy County Attorney Relationship Specialty Start Date End Date Guy Cotton, WATER RESOURCE CONSULTANT.DASHBOARD DEVELOPER PCP - General Cardiology 10/21/23 Team Status: Active Member Role Status Dates No Primary Care Physician Primary Care Provider Active Team Status: Inactive Member Role Status Dates No Primary Care Physician Primary Care Provider Active Start: July 30, 2024 End: July 30, 2024 Dr. Jose Posadas DO Attending Provider Active Start: July 30, 2024 End: July 30, 2024 Dr. Jose Posadas DO Emergency Provider Active Start: July 30, 2024 End: July 30, 2024 Team Status: Inactive Member Role Status Dates No Primary Care Physician Primary Care Provider Active Start: August 17, 2024 End: August 17, 2024 No Primary Care Physician Referring Provider Active Start: August 17, 2024 End: August 17, 2024 Dr. Rose Marie Morales MD Attending Provider Active Start: August 17, 2024 End: August 17, 2024 Team Status: Inactive Member Role Status Dates No Primary Care Physician Primary Care Provider Active Start: August 17, 2024 End: August 17, 2024 Dr. Rose Marie Morales MD Attending Provider Active Start: August 17, 2024 End: August 17, 2024 Dr. Rose Marie Morales MD Referring Provider Active Start: August 17, 2024 End: August 17, 2024 Team Status: Inactive Member Role Status Dates No Primary Care Physician Primary Care Provider Active Start: September 07, 2024 End: September 07, 2024 Parvin Curry NP, TATTOO IDENTIFIER-C Attending Provider Active Start: September 07, 2024 End: September 07, 2024 Team Status: Inactive Member Role Status Dates No Primary Care Physician Primary Care Provider Active Start: September 17, 2024 End: September 17, 2024 No Primary Care Physician Referring Provider Active Start: September 17, 2024 End: September 17, 2024 Renetta Nielsen CNM Attending Provider Active S tart: September 17, 2024 End: September 17, 2024 Team Status: Inactive Member Role Status Dates No Primary Care Physician Primary Care Provider Active Start: September 17, 2024 End: September 17, 2024 Renetta Nielsen CNM Attending Provider Active S tart: September 17, 2024 End: September 17, 2024 Renetta Nielsen CNM Referring Provider Active S tart: September 17, 2024 End: September 17, 2024 Team Status: Inactive Member Role Status Dates No Primary Care Physician Primary Care Provider Active Start: October 01, 2024 End: October 01, 2024 Dr. Chey Dupree DO Attending Provider Activ e Start: October 01, 2024 End: October 01, 2024 Dr. Chey Dupree DO Referring Provider Activ e Start: October 01, 2024 End: October 01, 2024 Team Status: Inactive Member Role Status Dates No Primary Care Physician Primary Care Provider Active Start: October 07, 2024 End: October 07, 2024 Dr. Chey Dupree DO Attending Provider Activ e Start: October 07, 2024 End: October 07, 2024 Dr. Chey Dupree DO Referring Provider Activ e Start: October 07, 2024 End: October 07, 2024 Team Status: Inactive Member Role Status Dates No Primary Care Physician Primary Care Provider Active Start: October 16, 2024 End: October 16, 2024 No Primary Care Physician Referring Provider Active Start: October 16, 2024 End: October 16, 2024 Renetta Nielsen CNM Attending Provider Active S tart: October 16, 2024 End: October 16, 2024 Team Status: Inactive Member Role Status Dates No Primary Care Physician Primary Care Provider Active Start: November 11, 2024 End: November 11, 2024 No Primary Care Physician Referring Provider Active Start: November 11, 2024 End: November 11, 2024 Dr. Chey Dupree , DO Attending Provider Activ e Start: November 11, 2024 End: November 11, 2024 Team Status: Inactive Member Role Status Dates No Primary Care Physician Primary Care Provider Active Start: December 09, 2024 End: December 09, 2024 No Primary Care Physician Referring Provider Active Start: December 09, 2024 End: December 09, 2024 Dr. Chey Dupree , Attending Provider Activ e Start: December 09, 2024 End: December 09, 2024 Team Status: Active Member Role/Relationship Status Dates No Primary Care Physician Primary Care Provider Active Team Status: Inactive Member Role/Relationship Status Dates No Primary Care Physician Primary Care Provider Active Start: September 17, 2024 End: September 17, 2024 No Primary Care Physician Referring Provider Active Start: September 17, 2024 End: September 17, 2024 Renetta Nielsen CNM Attending Provider Active S tart: September 17, 2024 End: September 17, 2024 Team Status: Inactive Member Role/Relationship Status Dates No Primary Care Physician Primary Care Provider Active Start: September 17, 2024 End: September 17, 2024 Renetta Nielsen CNM Attending Provider Active S tart: September 17, 2024 End: September 17, 2024 Renetta Nielsen CNM Referring Provider Active S tart: September 17, 2024 End: September 17, 2024 Team Status: Inactive Member Role/Relationship Status Dates No Primary Care Physician Primary Care Provider Active Start: October 01, 2024 End: October 01, 2024 Dr. Chey Dupree DO Attending Provider Activ e Start: October 01, 2024 End: October 01, 2024 Dr. Chey Dupree , Referring Provider Activ e Start: October 01, 2024 End: October 01, 2024 Team Status: Inactive Member Role/Relationship Status Dates No Primary Care Physician Primary Care Provider Active Start: October 07, 2024 End: October 07, 2024 Dr. Chey Dupree DO Attending Provider Activ e Start: October 07, 2024 End: October 07, 2024 Dr. Chey Dupree DO Referring Provider Activ e Start: October 07, 2024 End: October 07, 2024 Team Status: Inactive Member Role/Relationship Status Dates No Primary Care Physician Primary Care Provider Active Start: October 16, 2024 End: October 16, 2024 No Primary Care Physician Referring Provider Active Start: October 16, 2024 End: October 16, 2024 Renetta Nielsen CNM Attending Provider Active S tart: October 16, 2024 End: October 16, 2024 Team Status: Inactive Member Role/Relationship Status Dates No Primary Care Physician Primary Care Provider Active Start: November 11, 2024 End: November 11, 2024 No Primary Care Physician Referring Provider Active Start: November 11, 2024 End: November 11, 2024 Dr. Chey Dupree DO Attending Provider Activ e Start: November 11, 2024 End: November 11, 2024 Team Status: Inactive Member Role/Relationship Status Dates No Primary Care Physician Primary Care Provider Active Start: December 09, 2024 End: December 09, 2024 No Primary Care Physician Referring Provider Active Start: December 09, 2024 End: December 09, 2024 Dr. Chey Dupree DO Attending Provider Activ e Start: December 09, 2024 End: December 09, 2024 Team Status: Active Member Role/Relationship Status Dates No Primary Care Physician Primary Care Provider Active Start: January 04, 2025 Renetta Nielsen CNM Attending Provider Active S tart: January 04, 2025 Renetta Nielsen CNM Referring Provider Active S tart: January 04, 2025 Team Status: Inactive Member Role/Relationship Status Dates No Primary Care Physician Primary Care Provider Active Start: January 06, 2025 End: January 06, 2025 No Primary Care Physician Referring Provider Active Start: January 06, 2025 End: January 06, 2025 Parvin Antoinette TATTOO IDENTIFIER, [employer] IDENTIFIER-C Attending Provider Active Start: January 06, 2025 End: January 06, 2025 Team Status: Inactive Member Role/Relationship Status Dates No Primary Care Physician Primary Care Provider Active Start: January 04, 2025 End: January 04, 2025 Renetta Nielsen CNM Attending Provider Active S tart: January 04, 2025 End: January 04, 2025 Renetta Nielsen CNM Referring Provider Active S tart: January 04, 2025 End: January 04, 2025 Team Status: Inactive Member Role/Relationship Status Dates No Primary Care Physician Primary Care Provider Active Start: January 11, 2025 End: January 11, 2025 Dr. Rose Marie Morales MD Attending Provider Active Start: January 11, 2025 End: January 11, 2025 Dr. Rose Marie Morales MD Referring Provider Active Start: January 11, 2025 End: January 11, 2025 Team Status: Inactive Member Role/Relationship Status Dates No Primary Care Physician Primary Care Provider Active Start: October 01, 2024 End: October 01, 2024 Dr. Chey Dupree DO Attending Provider Activ e Start: October 01, 2024 End: October 01, 2024 Dr. Chey Dupree DO Referring Provider Activ e Start: October 01, 2024 End: October 01, 2024 Team Status: Inactive Member Role/Relationship Status Dates No Primary Care Physician Primary Care Provider Active Start: October 07, 2024 End: October 07, 2024 Dr. Chey Dupere DO Attending Provider Activ e Start: October 07, 2024 End: October 07, 2024 Dr. Chey Dupree DO Referring Provider Activ e Start: October 07, 2024 End: October 07, 2024 Team Status: Inactive Member Role/Relationship Status Dates No Primary Care Physician Primary Care Provider Active Start: October 16, 2024 End: October 16, 2024 No Primary Care Physician Referring Provider Active Start: October 16, 2024 End: October 16, 2024 Renetta Nielsen CNM Attending Provider Active S tart: October 16, 2024 End: October 16, 2024 Team Status: Inactive Member Role/Relationship Status Dates No Primary Care Physician Primary Care Provider Active Start: November 11, 2024 End: November 11, 2024 No Primary Care Physician Referring Provider Active Start: November 11, 2024 End: November 11, 2024 Dr. Chey Dupree DO Attending Provider Activ e Start: November 11, 2024 End: November 11, 2024 Team Status: Inactive Member Role/Relationship Status Dates No Primary Care Physician Primary Care Provider Active Start: December 09, 2024 End: December 09, 2024 No Primary Care Physician Referring Provider Active Start: December 09, 2024 End: December 09, 2024 Dr. Chey Dupree DO Attending Provider Activ e Start: December 09, 2024 End: December 09, 2024 Team Status: Inactive Member Role/Relationship Status Dates No Primary Care Physician Primary Care Provider Active Start: January 04, 2025 End: January 04, 2025 Renetta Nielsen CNM Attending Provider Active S tart: January 04, 2025 End: January 04, 2025 Renetta Nielsen CNM Referring Provider Active S tart: January 04, 2025 End: January 04, 2025 Team Status: Inactive Member Role/Relationship Status Dates No Primary Care Physician Primary Care Provider Active Start: January 06, 2025 End: January 06, 2025 No Primary Care Physician Referring Provider Active Start: January 06, 2025 End: January 06, 2025 Parvin Curry TATTOO IDENTIFIER, [employer]ATT[employer] IDENTIFIER-C Attending Provider Active Start: January 06, 2025 End: January 06, 2025 Team Status: Inactive Member Role/Relationship Status Dates No Primary Care Physician Primary Care Provider Active Start: January 11, 2025 End: January 11, 2025 Dr. Rose Marie Morales MD Attending Provider Active Start: January 11, 2025 End: January 11, 2025 Dr. Rose Marie Morales MD Referring Provider Active Start: January 11, 2025 End: January 11, 2025 Team Status: Active Member Role/Relationship Status Dates No Primary Care Physician Primary Care Provider Active Start: January 11, 2025 Dr. Rose Marie Morales MD Attending Provider Active Start: January 11, 2025 Dr. Rose Marie Morales MD Referring Provider Active Start: January 11, 2025 Dr. Rose Marie Morales MD Other Provider Active Start: January 11, 2025 Team Status: Inactive Member Role/Relationship Status Dates No Primary Care Physician Primary Care Provider Active Start: January 19, 2025 End: January 19, 2025 No Primary Care Physician Referring Provider Active Start: January 19, 2025 End: January 19, 2025 Dr. Rose Marie Morales MD Attending Provider Active Start: January 19, 2025 End: January 19, 2025 Team Status: Inactive Member Role/Relationship Status Dates No Primary Care Physician Primary Care Provider Active Start: January 21, 2025 End: January 21, 2025 Dr. Chey Dupree , DO Attending Provider Activ e Start: January 21, 2025 End: January 21, 2025 Dr. Chey Dupree DO Referring Provider Activ e Start: January 21, 2025 End: January 21, 2025 Team Status: Inactive Member Role/Relationship Status Dates No Primary Care Physician Primary Care Provider Active Start: October 07, 2024 End: October 07, 2024 Dr. Chey Dupree DO Attending Provider Activ e Start: October 07, 2024 End: October 07, 2024 Dr. Chey Dupree DO Referring Provider Activ e Start: October 07, 2024 End: October 07, 2024 Team Status: Inactive Member Role/Relationship Status Dates No Primary Care Physician Primary Care Provider Active Start: October 16, 2024 End: October 16, 2024 No Primary Care Physician Referring Provider Active Start: October 16, 2024 End: October 16, 2024 Renetta Nielsen CNM Attending Provider Active S tart: October 16, 2024 End: October 16, 2024 Team Status: Inactive Member Role/Relationship Status Dates No Primary Care Physician Primary Care Provider Active Start: November 11, 2024 End: November 11, 2024 No Primary Care Physician Referring Provider Active Start: November 11, 2024 End: November 11, 2024 Dr. Chey Dupree DO Attending Provider Activ e Start: November 11, 2024 End: November 11, 2024 Team Status: Inactive Member Role/Relationship Status Dates No Primary Care Physician Primary Care Provider Active Start: December 09, 2024 End: December 09, 2024 No Primary Care Physician Referring Provider Active Start: December 09, 2024 End: December 09, 2024 Dr. Chey Dupree DO Attending Provider Activ e Start: December 09, 2024 End: December 09, 2024 Team Status: Inactive Member Role/Relationship Status Dates No Primary Care Physician Primary Care Provider Active Start: January 04, 2025 End: January 04, 2025 Renetta Nielsen CNM Attending Provider Active S tart: January 04, 2025 End: January 04, 2025 Renetta Nielsen CNM Referring Provider Active S tart: January 04, 2025 End: January 04, 2025 Team Status: Inactive Member Role/Relationship Status Dates No Primary Care Physician Primary Care Provider Active Start: January 06, 2025 End: January 06, 2025 No Primary Care Physician Referring Provider Active Start: January 06, 2025 End: January 06, 2025 Parvin Curry NP, [employer]ATT[employer] IDENTIFIER-C Attending Provider Active Start: January 06, 2025 End: January 06, 2025 Team Status: Inactive Member Role/Relationship Status Dates No Primary Care Physician Primary Care Provider Active Start: January 11, 2025 End: January 11, 2025 Dr. Rose Marie Morales MD Attending Provider Active Start: January 11, 2025 End: January 11, 2025 Dr. Rose Marie Morales MD Referring Provider Active Start: January 11, 2025 End: January 11, 2025 Team Status: Active Member Role/Relationship Status Dates No Primary Care Physician Primary Care Provider Active Start: January 11, 2025 Dr. Rose Marie Morales MD Attending Provider Active Start: January 11, 2025 Dr. Rose Marie Morales MD Referring Provider Active Start: January 11, 2025 Dr. Rose Marie Morales MD Other Provider Active Start: January 11, 2025 Team Status: Inactive Member Role/Relationship Status Dates No Primary Care Physician Primary Care Provider Active Start: January 19, 2025 End: January 19, 2025 No Primary Care Physician Referring Provider Active Start: January 19, 2025 End: January 19, 2025 Dr. Rose Marie Morales MD Attending Provider Active Start: January 19, 2025 End: January 19, 2025 Team Status: Inactive Member Role/Relationship Status Dates No Primary Care Physician Primary Care Provider Active Start: January 21, 2025 End: January 21, 2025 Dr. Chey Dupree DO Attending Provider Activ e Start: January 21, 2025 End: January 21, 2025 Dr. Chey Dupree DO Referring Provider Activ e Start: January 21, 2025 End: January 21, 2025 Team Status: Inactive Member Role/Relationship Status Dates No Primary Care Physician Primary Care Provider Active Start: February 02, 2025 End: February 02, 2025 No Primary Care Physician Referring Provider Active Start: February 02, 2025 End: February 02, 2025 Renetta Nielsen CNM Attending Provider Active S tart: February 02, 2025 End: February 02, 2025 Team Status: Inactive Member Role/Relationship Status Dates No Primary Care Physician Primary Care Provider Active Start: October 16, 2024 End: October 16, 2024 No Primary Care Physician Referring Provider Active Start: October 16, 2024 End: October 16, 2024 Renetta Nielsen CNM Attending Provider Active S tart: October 16, 2024 End: October 16, 2024 Team Status: Inactive Member Role/Relationship Status Dates No Primary Care Physician Primary Care Provider Active Start: November 11, 2024 End: November 11, 2024 No Primary Care Physician Referring Provider Active Start: November 11, 2024 End: November 11, 2024 Dr. Chey Dupree DO Attending Provider Activ e Start: November 11, 2024 End: November 11, 2024 Team Status: Inactive Member Role/Relationship Status Dates No Primary Care Physician Primary Care Provider Active Start: December 09, 2024 End: December 09, 2024 No Primary Care Physician Referring Provider Active Start: December 09, 2024 End: December 09, 2024 Dr. Chey Dupree DO Attending Provider Activ e Start: December 09, 2024 End: December 09, 2024 Team Status: Inactive Member Role/Relationship Status Dates No Primary Care Physician Primary Care Provider Active Start: January 04, 2025 End: January 04, 2025 Renetta Nielsen CNM Attending Provider Active S tart: January 04, 2025 End: January 04, 2025 Renetta Nielsen CNM Referring Provider Active S tart: January 04, 2025 End: January 04, 2025 Team Status: Inactive Member Role/Relationship Status Dates No Primary Care Physician Primary Care Provider Active Start: January 06, 2025 End: January 06, 2025 No Primary Care Physician Referring Provider Active Start: January 06, 2025 End: January 06, 2025 Parvin Curry TATTOO IDENTIFIER, TATTOO IDENTIFIER-C Attending Provider Active Start: January 06, 2025 End: January 06, 2025 Team Status: Inactive Member Role/Relationship Status Dates No Primary Care Physician Primary Care Provider Active Start: January 11, 2025 End: January 11, 2025 Dr. Rose Marie Morales MD Attending Provider Active Start: January 11, 2025 End: January 11, 2025 Dr. Rose Marie Morales MD Referring Provider Active Start: January 11, 2025 End: January 11, 2025 Team Status: Active Member Role/Relationship Status Dates No Primary Care Physician Primary Care Provider Active Start: January 11, 2025 Dr. Rose Marie Morales MD Attending Provider Active Start: January 11, 2025 Dr. Rose Marie Morales MD Referring Provider Active Start: January 11, 2025 Dr. Rose Marie Morales MD Other Provider Active Start: January 11, 2025 Team Status: Inactive Member Role/Relationship Status Dates No Primary Care Physician Primary Care Provider Active Start: January 19, 2025 End: January 19, 2025 No Primary Care Physician Referring Provider Active Start: January 19, 2025 End: January 19, 2025 Dr. Rose Marie Morales MD Attending Provider Active Start: January 19, 2025 End: January 19, 2025 Team Status: Inactive Member Role/Relationship Status Dates No Primary Care Physician Primary Care Provider Active Start: January 21, 2025 End: January 21, 2025 Dr. Chey Dupree DO Attending Provider Activ e Start: January 21, 2025 End: January 21, 2025 Dr. Chey Dupree DO Referring Provider Activ e Start: January 21, 2025 End: January 21, 2025 Team Status: Inactive Member Role/Relationship Status Dates No Primary Care Physician Primary Care Provider Active Start: February 02, 2025 End: February 02, 2025 No Primary Care Physician Referring Provider Active Start: February 02, 2025 End: February 02, 2025 Renetta Nielsen CNM Attending Provider Active S tart: February 02, 2025 End: February 02, 2025 Team Status: Inactive Member Role/Relationship Status Dates No Primary Care Physician Primary Care Provider Active Start: February 02, 2025 End: February 02, 2025 Dr. Rose Marie Morales MD Attending Provider Active Start: February 02, 2025 End: February 02, 2025 Dr. Rose Marie Morales MD Referring Provider Active Start: February 02, 2025 End: February 02, 2025 Team Status: Active Member Role/Relationship Status Dates No Primary Care Physician Primary Care Provider Active Start: February 09, 2025 Dr. Rose Marie Morales MD Attending Provider Active Start: February 09, 2025 Dr. Rose Marie Morales MD Referring Provider Active Start: February 09, 2025 Team Status: Inactive Member Role/Relationship Status Dates No Primary Care Physician Primary Care Provider Active Start: February 10, 2025 End: February 10, 2025 No Primary Care Physician Referring Provider Active Start: February 10, 2025 End: February 10, 2025 Dr. Chey Dupree DO Attending Provider Activ e Start: February 10, 2025 End: February 10, 2025 Team Status: Inactive Member Role/Relationship Status Dates No Primary Care Physician Primary Care Provider Active Start: November 11, 2024 End: November 11, 2024 No Primary Care Physician Referring Provider Active Start: November 11, 2024 End: November 11, 2024 Dr. Chey Dupree DO Attending Provider Activ e Start: November 11, 2024 End: November 11, 2024 Team Status: Inactive Member Role/Relationship Status Dates No Primary Care Physician Primary Care Provider Active Start: December 09, 2024 End: December 09, 2024 No Primary Care Physician Referring Provider Active Start: December 09, 2024 End: December 09, 2024 Dr. Chey Dupree DO Attending Provider Activ e Start: December 09, 2024 End: December 09, 2024 Team Status: Inactive Member Role/Relationship Status Dates No Primary Care Physician Primary Care Provider Active Start: January 04, 2025 End: January 04, 2025 Renetta Nielsen CNM Attending Provider Active S tart: January 04, 2025 End: January 04, 2025 Renetta Nielsen CNM Referring Provider Active S tart: January 04, 2025 End: January 04, 2025 Team Status: Inactive Member Role/Relationship Status Dates No Primary Care Physician Primary Care Provider Active Start: January 06, 2025 End: January 06, 2025 No Primary Care Physician Referring Provider Active Start: January 06, 2025 End: January 06, 2025 Parvin Curry NP, [employer]ATT[employer] IDENTIFIER-C Attending Provider Active Start: January 06, 2025 End: January 06, 2025 Team Status: Inactive Member Role/Relationship Status Dates No Primary Care Physician Primary Care Provider Active Start: January 11, 2025 End: January 11, 2025 Dr. Rose Marie Morales MD Attending Provider Active Start: January 11, 2025 End: January 11, 2025 Dr. Rose Marie Morales MD Referring Provider Active Start: January 11, 2025 End: January 11, 2025 Team Status: Active Member Role/Relationship Status Dates No Primary Care Physician Primary Care Provider Active Start: January 11, 2025 Dr. Rose Marie Morales MD Attending Provider Active Start: January 11, 2025 Dr. Rose Marie Morales MD Referring Provider Active Start: January 11, 2025 Dr. Rose Marie Morales MD Other Provider Active Start: January 11, 2025 Team Status: Inactive Member Role/Relationship Status Dates No Primary Care Physician Primary Care Provider Active Start: January 19, 2025 End: January 19, 2025 No Primary Care Physician Referring Provider Active Start: January 19, 2025 End: January 19, 2025 Dr. Rose Marie Morales MD Attending Provider Active Start: January 19, 2025 End: January 19, 2025 Team Status: Inactive Member Role/Relationship Status Dates No Primary Care Physician Primary Care Provider Active Start: January 21, 2025 End: January 21, 2025 Dr. Chey Dupree DO Attending Provider Activ e Start: January 21, 2025 End: January 21, 2025 Dr. Chey Dupree DO Referring Provider Activ e Start: January 21, 2025 End: January 21, 2025 Team Status: Inactive Member Role/Relationship Status Dates No Primary Care Physician Primary Care Provider Active Start: February 02, 2025 End: February 02, 2025 No Primary Care Physician Referring Provider Active Start: February 02, 2025 End: February 02, 2025 Renetta Nielsen CNM Attending Provider Active S tart: February 02, 2025 End: February 02, 2025 Team Status: Inactive Member Role/Relationship Status Dates No Primary Care Physician Primary Care Provider Active Start: February 02, 2025 End: February 02, 2025 Dr. Rose Marie Morales MD Attending Provider Active Start: February 02, 2025 End: February 02, 2025 Dr. Rose Marie Morales MD Referring Provider Active Start: February 02, 2025 End: February 02, 2025 Team Status: Inactive Member Role/Relationship Status Dates No Primary Care Physician Primary Care Provider Active Start: February 09, 2025 End: February 09, 2025 Dr. Rose Marie Morales MD Attending Provider Active Start: February 09, 2025 End: February 09, 2025 Dr. Rose Marie Morales MD Referring Provider Active Start: February 09, 2025 End: February 09, 2025 Team Status: Inactive Member Role/Relationship Status Dates No Primary Care Physician Primary Care Provider Active Start: February 10, 2025 End: February 10, 2025 No Primary Care Physician Referring Provider Active Start: February 10, 2025 End: February 10, 2025 Dr. Chey Dupree DO Attending Provider Activ e Start: February 10, 2025 End: February 10, 2025 Team Status: Active Member Role/Relationship Status Dates No Primary Care Physician Primary Care Provider Active Start: February 16, 2025 Dr. Rose Marie Morales MD Attending Provider Active Start: February 16, 2025 Dr. Rose Marie Morales MD Referring Provider Active Start: February 16, 2025 Dr. Chey Dupree DO Other Provider Active Start: February 16, 2025 Team Status: Inactive Member Role/Relationship Status Dates No Primary Care Physician Primary Care Provider Active Start: February 19, 2025 End: February 19, 2025 No Primary Care Physician Referring Provider Active Start: February 19, 2025 End: February 19, 2025 Dr. Rose Marie Morales MD Attending Provider Active Start: February 19, 2025 End: February 19, 2025 Team Status: Active Member Role/Relationship Status Dates No Primary Care Physician Primary Care Provider Active Start: February 19, 2025 Dr. Rose Marie Morales MD Attending Provider Active Start: February 19, 2025 Dr. Rose Marie Morales MD Referring Provider Active Start: February 19, 2025 Team Status: Inactive Member Role/Relationship Status Dates No Primary Care Physician Primary Care Provider Active Start: February 16, 2025 End: February 16, 2025 Dr. Rose Marie Morales MD Attending Provider Active Start: February 16, 2025 End: February 16, 2025 Dr. Rose Marie Morales MD Referring Provider Active Start: February 16, 2025 End: February 16, 2025 Dr. Chey Dupree DO Other Provider Active Start: February 16, 2025 End: February 16, 2025 Team Status: Inactive Member Role/Relationship Status Dates No Primary Care Physician Primary Care Provider Active Start: February 19, 2025 End: February 19, 2025 Dr. Rose Marie Morales MD Attending Provider Active Start: February 19, 2025 End: February 19, 2025 Dr. Rose Marie Morales MD Referring Provider Active Start: February 19, 2025 End: February 19, 2025 Team Status: Active Member Role/Relationship Status Dates No Primary Care Physician Primary Care Provider Active Start: February 23, 2025 Dr. Rose Marie Morales MD Attending Provider Active Start: February 23, 2025 Dr. Rose Marie Morales MD Referring Provider Active Start: February 23, 2025 Team Status: Inactive Member Role/Relationship Status Dates No Primary Care Physician Primary Care Provider Active Start: February 26, 2025 End: February 26, 2025 No Primary Care Physician Referring Provider Active Start: February 26, 2025 End: February 26, 2025 Renetta Nielsen CNM Attending Provider Active S tart: February 26, 2025 End: February 26, 2025 Team Status: Active Member Role/Relationship Status Dates No Primary Care Physician Primary Care Provider Active Start: February 26, 2025 Renetta Nielsen CNM Attending Provider Active S tart: February 26, 2025 Renetta Nielsen CNM Referring Provider Active S tart: February 26, 2025 Team Status: Inactive Member Role/Relationship Status Dates No Primary Care Physician Primary Care Provider Active Start: March 03, 2025 End: March 03, 2025 Dr. Chey Dupree DO Attending Provider Activ e Start: March 03, 2025 End: March 03, 2025 Dr. Chey Dupree DO Referring Provider Activ e Start: March 03, 2025 End: March 03, 2025 Team Status: Active Member Role/Relationship Status Dates No Primary Care Physician Primary Care Provider Active Start: March 03, 2025 Dr. Chey Dupree DO Attending Provider Activ e Start: March 03, 2025 Dr. Chey Dupree DO Referring Provider Activ e Start: March 03, 2025 Dr. Chey Dupree DO Other Provider Active Start: March 03, 2025 Team Status: Inactive Member Role/Relationship Status Dates No Primary Care Physician Primary Care Provider Active Start: February 23, 2025 End: February 23, 2025 Dr. Rose Marie Morales MD Attending Provider Active Start: February 23, 2025 End: February 23, 2025 Dr. Rose Marie Morales MD Referring Provider Active Start: February 23, 2025 End: February 23, 2025 Team Status: Inactive Member Role/Relationship Status Dates No Primary Care Physician Primary Care Provider Active Start: December 09, 2024 End: December 09, 2024 No Primary Care Physician Referring Provider Active Start: December 09, 2024 End: December 09, 2024 Dr. Chey Dupree DO Attending Provider Activ e Start: December 09, 2024 End: December 09, 2024 Team Status: Inactive Member Role/Relationship Status Dates No Primary Care Physician Primary Care Provider Active Start: January 04, 2025 End: January 04, 2025 Renetta Nielsen CNM Attending Provider Active S tart: January 04, 2025 End: January 04, 2025 Renetta Nielsen CNM Referring Provider Active S tart: January 04, 2025 End: January 04, 2025 Team Status: Inactive Member Role/Relationship Status Dates No Primary Care Physician Primary Care Provider Active Start: January 06, 2025 End: January 06, 2025 No Primary Care Physician Referring Provider Active Start: January 06, 2025 End: January 06, 2025 Parvin Curry NP, [employer] Attending Provider Active Start: January 06, 2025 End: January 06, 2025 Team Status: Inactive Member Role/Relationship Status Dates No Primary Care Physician Primary Care Provider Active Start: January 11, 2025 End: January 11, 2025 Dr. Rose Marie Morales MD Attending Provider Active Start: January 11, 2025 End: January 11, 2025 Dr. Rose Marie Morales MD Referring Provider Active Start: January 11, 2025 End: January 11, 2025 Team Status: Active Member Role/Relationship Status Dates No Primary Care Physician Primary Care Provider Active Start: January 11, 2025 Dr. Rose Marie Morales MD Attending Provider Active Start: January 11, 2025 Dr. Rose Marie Morales MD Referring Provider Active Start: January 11, 2025 Dr. Rose Marie Morales MD Other Provider Active Start: January 11, 2025 Team Status: Inactive Member Role/Relationship Status Dates No Primary Care Physician Primary Care Provider Active Start: January 19, 2025 End: January 19, 2025 No Primary Care Physician Referring Provider Active Start: January 19, 2025 End: January 19, 2025 Dr. Rose Marie Morales MD Attending Provider Active Start: January 19, 2025 End: January 19, 2025 Team Status: Inactive Member Role/Relationship Status Dates No Primary Care Physician Primary Care Provider Active Start: January 21, 2025 End: January 21, 2025 Dr. Chey Dupree DO Attending Provider Activ e Start: January 21, 2025 End: January 21, 2025 Dr. Chey Dupree DO Referring Provider Activ e Start: January 21, 2025 End: January 21, 2025 Team Status: Inactive Member Role/Relationship Status Dates No Primary Care Physician Primary Care Provider Active Start: February 02, 2025 End: February 02, 2025 No Primary Care Physician Referring Provider Active Start: February 02, 2025 End: February 02, 2025 Renetta Nielsen CNM Attending Provider Active S tart: February 02, 2025 End: February 02, 2025 Team Status: Inactive Member Role/Relationship Status Dates No Primary Care Physician Primary Care Provider Active Start: February 02, 2025 End: February 02, 2025 Dr. Rose Marie Morales MD Attending Provider Active Start: February 02, 2025 End: February 02, 2025 Dr. Rose Marie Morales MD Referring Provider Active Start: February 02, 2025 End: February 02, 2025 Team Status: Inactive Member Role/Relationship Status Dates No Primary Care Physician Primary Care Provider Active Start: February 09, 2025 End: February 09, 2025 Dr. Rose Marie Morales MD Attending Provider Active Start: February 09, 2025 End: February 09, 2025 Dr. Rose Marie Morales MD Referring Provider Active Start: February 09, 2025 End: February 09, 2025 Team Status: Inactive Member Role/Relationship Status Dates No Primary Care Physician Primary Care Provider Active Start: February 10, 2025 End: February 10, 2025 No Primary Care Physician Referring Provider Active Start: February 10, 2025 End: February 10, 2025 Dr. Chey Dupree DO Attending Provider Activ e Start: February 10, 2025 End: February 10, 2025 Team Status: Inactive Member Role/Relationship Status Dates No Primary Care Physician Primary Care Provider Active Start: February 16, 2025 End: February 16, 2025 Dr. Rose Marie Morales MD Attending Provider Active Start: February 16, 2025 End: February 16, 2025 Dr. Rose Marie Morales MD Referring Provider Active Start: February 16, 2025 End: February 16, 2025 Dr. Chey Dupree DO Other Provider Active Start: February 16, 2025 End: February 16, 2025 Team Status: Inactive Member Role/Relationship Status Dates No Primary Care Physician Primary Care Provider Active Start: February 19, 2025 End: February 19, 2025 No Primary Care Physician Referring Provider Active Start: February 19, 2025 End: February 19, 2025 Dr. Rose Marie Morales MD Attending Provider Active Start: February 19, 2025 End: February 19, 2025 Team Status: Inactive Member Role/Relationship Status Dates No Primary Care Physician Primary Care Provider Active Start: February 19, 2025 End: February 19, 2025 Dr. Rose Marie Morales MD Attending Provider Active Start: February 19, 2025 End: February 19, 2025 Dr. Rose Marie Morales MD Referring Provider Active Start: February 19, 2025 End: February 19, 2025 Team Status: Inactive Member Role/Relationship Status Dates No Primary Care Physician Primary Care Provider Active Start: February 23, 2025 End: February 23, 2025 Dr. Rose Marie Morales MD Attending Provider Active Start: February 23, 2025 End: February 23, 2025 Dr. Rose Marie Morales MD Referring Provider Active Start: February 23, 2025 End: February 23, 2025 Team Status: Inactive Member Role/Relationship Status Dates No Primary Care Physician Primary Care Provider Active Start: February 26, 2025 End: February 26, 2025 No Primary Care Physician Referring Provider Active Start: February 26, 2025 End: February 26, 2025 Renetta Nielsen CNM Attending Provider Active S tart: February 26, 2025 End: February 26, 2025 Team Status: Inactive Member Role/Relationship Status Dates No Primary Care Physician Primary Care Provider Active Start: February 26, 2025 End: February 26, 2025 Renetta Nielsen CNM Attending Provider Active S tart: February 26, 2025 End: February 26, 2025 Renetta Nielsen CNM Referring Provider Active S tart: February 26, 2025 End: February 26, 2025 Team Status: Inactive Member Role/Relationship Status Dates No Primary Care Physician Primary Care Provider Active Start: March 03, 2025 End: March 03, 2025 Dr. Chey Dupree DO Attending Provider Activ e Start: March 03, 2025 End: March 03, 2025 Dr. Chey Dupree DO Referring Provider Activ e Start: March 03, 2025 End: March 03, 2025 Team Status: Active Member Role/Relationship Status Dates No Primary Care Physician Primary Care Provider Active Start: March 03, 2025 Dr. Chey Dupree DO Attending Provider Activ e Start: March 03, 2025 Dr. Chey Dupree DO Referring Provider Activ e Start: March 03, 2025 Dr. Chey Dupree , DO Other Provider Active Start: March 03, 2025 Team Status: Inactive Member Role/Relationship Status Dates No Primary Care Physician Primary Care Provider Active Start: March 12, 2025 End: March 12, 2025 No Primary Care Physician Referring Provider Active Start: March 12, 2025 End: March 12, 2025 Dr. Rose Marie Morales MD Attending Provider Active Start: March 12, 2025 End: March 12, 2025 Team Status: Inactive Member Role/Relationship Status Dates No Primary Care Physician Primary Care Provider Active Start: February 26, 2025 End: February 26, 2025 Renetta Nielsen CNM Attending Provider Active S tart: February 26, 2025 End: February 26, 2025 Renetta Nielsen CNM Referring Provider Active S tart: February 26, 2025 End: February 26, 2025 Team Status: Inactive Member Role/Relationship Status Dates No Primary Care Physician Primary Care Provider Active Start: March 12, 2025 End: March 15, 2025 Dr. Rose Marie Morales MD Admit Provider Active Start: March 12, 2025 End: March 15, 2025 Dr. Rose Marie Morales MD Attending Provider Active Start: March 12, 2025 End: March 15, 2025 Dr. Rose Marie Morales MD Referring Provider Active Start: March 12, 2025 End: March 15, 2025 Team Status: Active Member Role/Relationship Status Dates No Primary Care Physician Primary Care Provider Active Start: March 12, 2025 Dr. Rose Marie Morales MD Admit Provider Active Start: March 12, 2025 Dr. Rose Marie Morales MD Attending Provider Active Start: March 12, 2025 Dr. Rose Marie Morales MD Referring Provider Active Start: March 12, 2025 Dr. Rose Marie Morales MD Other Provider Active Start: March 12, 2025 Team Status: Active Member Role/Relationship Status Dates No Primary Care Physician Primary Care Provider Active Start: March 13, 2025 Dr. Rose Marie Morales MD Admit Provider Active Start: March 13, 2025 Dr. Rose Marie Morales MD Attending Provider Active Start: March 13, 2025 Dr. Rose Marie Morales MD Referring Provider Active Start: March 13, 2025 Dr. Rose Marie Morales MD Other Provider Active Start: March 13, 2025 Team Status: Active Member Role/Relationship Status Dates No Primary Care Physician Primary Care Provider Active Start: March 14, 2025 Dr. Rose Marie Morales MD Admit Provider Active Start: March 14, 2025 Dr. Rose Marie Morales MD Attending Provider Active Start: March 14, 2025 Dr. Rose aMrie Morales MD Referring Provider Active Start: March 14, 2025 Dr. Rose Marie Morales MD Other Provider Active Start: March 14, 2025 Team Status: Active Member Role/Relationship Status Dates No Primary Care Physician Primary Care Provider Active Start: March 15, 2025 Dr. Rose Marie Morales MD Admit Provider Active Start: March 15, 2025 Dr. Rose Marie Morales MD Attending Provider Active Start: March 15, 2025 Dr. Rose Marie Morales MD Referring Provider Active Start: March 15, 2025 Dr. Rose Marie Morales MD Other Provider Active Start: March 15, 2025 Goals (unrecognized section and content) Goals may be documented in a n alternate section FOR RECORDS PERTAINING TO PATIENTS WHO ARE [...] BE BASED ON THE PRIMARY CLINICAL RECORDS. [facility] [employer] provides no warranty or guarantee of the accuracy or completeness of information in this document.
--- NOTE | 2025-03-20 10:49 | ED.VIS.STROK ---
HPI History of Present Illness Chief Complaint: Numb/Ting Onset/Context/Timing Onset: Today Narrative Narrative: 29-year-old female is status post by approximately [address] Rose Marie Morales. She did have history of -induced hypertension. She was on labetalol and nifedipine at night. Yesterday evening she did not take the nifedipine. 45 minutes prior to arrival she developed numbness and tingling of the right side of her face. She denies any headache, no other symptoms. No paresthesias of arms or legs. Upon arrival to the ED, was noticed by RN that she has right-sided facial droop. Patient denies any symptoms such as shortness of breath or chest pain as well. [facility] Medical History History of gestational diabetes mellitus (GDM) in prior , currently Infertility Missed History of gestational diabetes in prior , currently H/O pre-eclampsia in prior , currently Supervision of high-risk Drug use affecting Preventative health care Upper respiratory infection, viral Encounter to establish care Pelvic pain Nausea & vomiting Amenorrhea Wears glasses Anxiety Marijuana use Low iron Restless legs Asthma Shortness of breath on exertion Infected dental caries ADD (attention deficit disorder) Elevated d-dimer Internal derangement of left shoulder Cholelithiasis Home Medications ?Medication ?Instructions ?Recorded ?Last Taken ?Type albuterol sulfate 90 mcg/actuation 2 inh inhalation Q4-6H PRN 10/18/23 Unknown Rx breath activated powder inhaler shortness of breath or wheezing #1 ea lancets #200 ea 01/04/25 Unknown Rx naproxen 500 mg tablet 500 mg PO BID PRN PRN Pain #30 tabs 03/13/25 Unknown Rx labetalol 200 mg tablet 200 mg PO TID #90 tabs 03/15/25 Unknown Rx nifedipine 30 mg tablet,extended 30 mg PO DAILY #30 tabs 03/15/25 Unknown Rx release 24 hr (Procardia XL) Allergy/AdvReac Type Severity Reaction Status Date / Time No Known Allergies Allergy Verified 03/20/25 13:20 Family History Aunt Breast cancer, Onset Age: 50 Grandfather Diabetes Grandmother Diabetes Surgical History History of delivery, currently Hx laparoscopic cholecystectomy History of History of tonsillectomy Social History adopted: No household members: spouse and children number of children: 2 current occupational status: unemployed current occupation: [employer] current occupational exposures/hazards: No pets and animals: Yes ( taking care litter box ) pets and animals: cat(s) and dog(s) history of recent travel: Yes ([place]) out of state: Yes out of country: No sexually active: Yes Smoking Status: Former smoker Smokeless tobacco user: other Electronic Cigarette Use: with nicotine quit status: considering quitting alcohol intake: current alcohol intake frequency: holidays/special occasions only details: Not while substance use type: marijuana well-balanced diet: daily or most days caffeine: Yes Type: tea Number of servings: 1 eating out: 1-3 times/week during the past year weight has: remained stable what type of physical activity do you participate in: none abdoul/spiritism: None seatbelt use: always do you feel safe at home: Yes 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 No headache, no neck pain no paresthesias of arms or legs. No problems with speech. EXAM Physical Exam Narrative Exam Narrative: GCS 15. ABCs intact. Cardiovascular semination regular rate and rhythm. Lungs are clear to auscultation bilaterally. Abdomen is soft and nontender with positive bowel sounds. No guarding or rebound. Neurological examination shows mild right-sided facial droop with no forehead involvement, no difficulty closing eye. NIH is 1 for paresthesias of right side of face. Const Vital Signs: 03/20/25 10:25 03/20/25 10:39 03/20/25 10:39 Temperature 98.4 F Temperature Source Oral Pulse Rate 60 65 Respiratory Rate 16 16 Blood Pressure 171/88 H 177/88 H Blood Pressure Mean 115 117 Pulse Ox 97 96 97 Oxygen Delivery Method Room Air Room Air Room Air 03/20/25 11:09 03/20/25 11:30 03/20/25 12:00 Temperature Temperature Source Pulse Rate 71 87 61 Respiratory Rate 16 19 H 16 Blood Pressure 156/92 H 173/98 H 180/111 H Blood Pressure Mean 113 123 134 Pulse Ox 96 99 98 Oxygen Delivery Method Room Air Room Air Room Air 03/20/25 12:30 03/20/25 12:45 03/20/25 13:00 Temperature Temperature Source Pulse Rate 61 65 56 L Respiratory Rate 21 H 19 H 23 H Blood Pressure 164/90 H 168/102 H 156/96 H Blood Pressure Mean 114 120 116 Pulse Ox 98 98 96 Oxygen Delivery Method Room Air Room Air 03/20/25 13:30 Temperature Temperature Source Pulse Rate 65 Respiratory Rate 25 H Blood Pressure 158/72 H Blood Pressure Mean 100 Pulse Ox 93 Oxygen Delivery Method Room Air MDM MDM MDM Narrative Medical decision making narrative: The differential diagnosis includes but not limited to -induced hypertension versus hemorrhagic stroke versus ischemic stroke versus Villarreal's palsy. History and physical does not support Villarreal's palsy. Stroke team was activated. Patient does not have significant facial droop on my examination so she might be scored NIH of 2 at best. EKG was obtained and interpreted by myself independently as normal sinus rhythm at 73 bpm without ectopy or acute ST changes. No STEMI. I reviewed her laboratory work and she has normal white count of 7.7, hemoglobin 8.7 both compared to prior labs improved as she states she had to have blood transfusion previously. Platelet count normal at 429 so I doubt help syndrome. Review of her BMP shows normal electrolytes including sodium and potassium, BUN of 9 and creatinine 0.75. I added LFTs and reviewed them which shows normal AST and ALT but alk phos slightly elevated at 129. I think this is nonspecific and when compared to prior it has been elevated in the past. High-sensitivity troponin is 10. Urinalysis did show 15 protein. However, no evidence of infection. Chest x-ray was also obtained and on my independent interpretation, no pneumonia or pneumothorax. I reviewed the radiology report which confirms my independent interpretation but does comment on cardiomegaly and vascular congestion. I discussed patient with the stroke teleneurologist. He has lower concern for stroke, and in review of the CT of the brain radiology report there is no acute hemorrhage, CTA of the head and neck shows no large vessel occlusion. It was deemed that she is not a TNK candidate given that she has no debilitating deficit. However, the teleneurologist did have concern for any possible cardiomyopathy . He did not have concern for permissive hypertension and deferred to [facility]. I discussed patient with Dr. Llamas with obstetrics/gynecology. She wanted magnesium started at 6 g and 20 mg of IV labetalol. While her blood pressure fluctuated after this, it is now below the goal of 160 so she will be given maintenance labetalol. It was felt that she would be better served to rule out stroke and cardiomyopathy and other complications from her hypertension at [facility]. Patient had initially been discussed with Dr. Isbell with maternal- medicine by Dr. Llamas who suggested ICU admission. I spoke with the neuro ICU physician Dr. Coronado who is deferred to medical ICU. I then discussed the patient over the telephone with Dr. Alfred with critical care medicine and Dr. Isbell with maternal- medicine. Dr. Alfred has accepted her in transfer to the medical ICU with consultation to Dr. Joe. Critical care time 33 minutes. Disposition is transferred in guarded condition. History & Record Review Discussion w/independent historian: Patient and Family Additional record(s) reviewed:: Prior ED visit Lab Data Attestation: I reviewed the patient's lab results. Labs: Laboratory Results - last 24 hr 03/20/25 03/20/25 03/20/25 10:15 10:23 10:30 WBC 7.7 RBC 4.00 L Hgb 8.7 L Hct 29.2 L MCV 73.0 L MCH 21.8 L MCHC 29.8 L RDW Std Deviation 48.8 H RDW Coeff of Kel 18.8 H Plt Count 429 MPV 8.8 Immature Gran % (Auto) 3.500 H Neut % (Auto) 69.2 Lymph % (Auto) 15.2 L [place] % (Auto) 5.9 Eos % (Auto) 5.8 H Baso % (Auto) 0.4 Absolute Neuts (auto) 5.4 Absolute Lymphs (auto) 1.18 Nucleated RBC % 0 PT 13.8 INR 1.0 APTT 27.7 Sodium 139 Potassium 4.0 Chloride 104 Carbon Dioxide 21.9 Anion Gap 14 BUN 9 Creatinine 0.75 Estim Creat Clear Calc 123.80 Est GFR (MDRD) Non-Af 110 BUN/Creatinine Ratio 12.4 Glucose 88 Calcium 9.0 Total Bilirubin 0.20 Direct Bilirubin 0.09 AST 22 ALT 14 Alkaline Phosphatase 129 H Troponin T High Sens 10 Total Protein 7.1 Albumin 3.5 Globulin 3.5 Urine Color Urine Clarity Urine pH Ur Specific [place] Urine Protein Urine Glucose (UA) Urine Ketones Urine Occult Blood Urine Nitrite Urine Bilirubin Urine Urobilinogen Ur Leukocyte Esterase Urine RBC Urine WBC Ur Squamous Epith Cells Urine Bacteria Urine Mucus POC Glucose 03/20/25 03/20/25 10:48 12:39 WBC RBC Hgb Hct MCV MCH MCHC RDW Std Deviation RDW Coeff of Kel Plt Count MPV Immature Gran % (Auto) Neut % (Auto) Lymph % (Auto) [place] % (Auto) Eos % (Auto) Baso % (Auto) Absolute Neuts (auto) Absolute Lymphs (auto) Nucleated RBC % PT INR APTT Sodium Potassium Chloride Carbon Dioxide Anion Gap BUN Creatinine Estim Creat Clear Calc Est GFR (MDRD) Non-Af BUN/Creatinine Ratio Glucose Calcium Total Bilirubin Direct Bilirubin AST ALT Alkaline Phosphatase Troponin T High Sens Total Protein Albumin Globulin Urine Color Yellow Urine Clarity Clear Urine pH 7.0 Ur Specific [place] 1.005 Urine Protein 15 H Urine Glucose (UA) Normal Urine Ketones Negative Urine Occult Blood 250 H Urine Nitrite Negative Urine Bilirubin Negative Urine Urobilinogen Normal Ur Leukocyte Esterase Negative Urine RBC 5-10 SEEN Urine WBC 0-5 SEEN Ur Squamous Epith Cells 0-5 SEEN Urine Bacteria 0 SEEN Urine Mucus 0 SEEN POC Glucose 86 Radiography Diagnostic Testing: Clinical Impression(s) from Imaging Studies Brain CT 03/20/25 10:39 IMPRESSION: No acute intracranial abnormalities. Reading Location: [facility] Head/Neck CTA 03/20/25 10:40 IMPRESSION: No high-grade arterial stenosis, aneurysm, or arteriovenous malformation. Reading Location: [id number] Chest X-Ray 03/20/25 12:08 IMPRESSION: 1. Cardiomegaly with vascular congestion. 2. Bilateral peribronchiolar thickening, can be seen with interstitial edema or small airways disease, including asthma and bronchitis. Reading Location: [id number] Management Discussion w/another healthcare provider: Superintendent Custodian Janitor Critical Care Time Critical Care Time: Yes Critical care time (excluding procedures): 30-74 minutes (33), Including time spent:, Discussing w/Patient &/or Family/Physician Office Clin Asst, Discussing w/Consultants ([facility] stroke teleneurologist, Dr. Llamas obstetrics/gynecology, Dr. Coronado neuro ICU at [facility], Dr. Isbell maternal- medicine, Dr. Alfred medical ICU), Arranging Admission or Transfer and Performing Direct Patient Care at Bedside Discharge Plan Triage Chief Complaint: Numb/Ting ED Provider: Guillermo Yip Dx/Rx/DC Orders Clinical Impression: hypertension, Facial paresthesia, Pre-eclampsia in period Prescriptions: No Action albuterol sulfate 90 mcg/actuation aerosol powdr breath activated 2 inh inhalation Q4-6H PRN (Reason: shortness of breath or wheezing) Qty: 1 0RF naproxen 500 mg tablet 500 mg PO BID PRN PRN (Reason: Pain) Qty: 30 1RF labetalol 200 mg tablet 200 mg PO TID Qty: 90 0RF nifedipine [Procardia XL] 30 mg tablet extended release 24hr 30 mg PO DAILY Qty: 30 2RF (DME) lancets Misc See Rx Instructions .ROUTE .MEDSUPPLY Qty: 200 2RF Rx Instructions: As directed, fasting and 2 hours post meals Primary Care Provider: Care Physician,No Primary Referrals: Care Physician,No Primary [Primary Care Provider, Medical] Print Language: Georgian Disposition Disposition: Acute Care Hospital Discharge Location: [facility] NIHSS NIHSS 1a. Level of Consciousness: 0 - Alert; keenly responsive 1b. LOC Questions: 0 - Answers BOTH questions correctly 1c. LOC Commands: 0 - Performs BOTH tasks correctly 2. Best Gaze: 0 - Normal 3. Visual: 0 - No visual loss 4. Facial Palsy: 1 - Minor paralysis (flattened nasolabial fold, asymmetry on smiling) 5a. Left Arm: 0 - No drift; arm holds 90 (or 45) degrees for full 10 seconds 5b. Right Arm: 0 - No drift; arm holds 90 (or 45) degrees for full 10 seconds 6a. Left Le - No drift; leg holds 30-degree position for full 5 seconds 6b. Right Le - No drift; leg holds 30-degree position for full 5 seconds 7. Limb Ataxia: 0 - Absent 8. Sensory: 1 - [id number] sensory loss; 9. Best Language: 0 - No aphasia; normal 10. Dysarthria: 0 - Normal 11. Extinction and Inattention: 0 - No abnormality Total: 2 Stroke Questions Stroke Team Activated: Yes Reviewed Inclusion/Exclusion criteria: Yes IV Thrombolytic Administered: No
[2025-03-20 10:52] LABS: Prothrombin Time (Protime)PT. 13.8 SECONDS (11.7-14.9)
[2025-03-20 10:53] LABS: Partial Thromboplast Time 27.7 Seconds (24.1-36.2)
[2025-03-20 11:10] LABS: Anion Gap 14 (5-15); BUN 9 mg/dL (4-19); BUN/Creat Ratio 12.4 RATIO (10-20); Calcium,Total 9.0 mg/dL (7.6-11.0); Carbon Dioxide 21.9 mmol/L (21.0-32.0); Chloride 104 mmol/L (98-108); Estimated Creatinine Clearance 123.80 ml/min (50-250); Glucose 88 mg/dL (70-99); Potassium 4.0 mmol/L (3.3-5.1); Troponin T High Sensitivity 10 ng/L (<=14)
--- NOTE | 2025-03-20 11:39 | CM.ED ---
Social Work Date of referral: 03/20/25 Reason for referral: Stroke Alert casino worker first met with patient's to provide emotional support as patient was transported for medical care. Health Occupations Teacher talked with the about some things that he can expect once patient is brought back to the room which he verbalized he understood. (10:40) Health Occupations Teacher checked in on patient and her again and provided emotional support which both expressed appreciation for. Health Occupations Teacher got patient a warm blanket. Both patient and patient's denied any other needs/concerns at this time. (11:39) Chey Mejia, CASE MANAGEMENT DIRECTOR, [employer]ENT
[2025-03-20 11:48] LABS: AST(SGOT) 22 U/L (<=31); Alanine Aminotransfer ALT/SGPT 14 U/L (<=34); Albumin, Serum 3.5 g/dL (3.5-5.0); Alkaline Phosphatase 129 U/L (35-104); Bilirubin, Direct 0.09 mg/dL (0.00-0.30); Globulin 3.5 g/dL (2.2-4.2)
--- NOTE | 2025-03-20 12:08 | RAD_ITS ---
PROCEDURE: CHEST 1 VIEW (PORTABLE) 03/20/2025 REASON FOR EXAM: SHORTNESS OF BREATH TECHNIQUE: Frontal view of the chest. COMPARISON: 04/03/2024 FINDINGS: LUNGS AND PLEURA: No focal airspace consolidation. Peribronchiolar thickening bilaterally. No pleural effusion or pneumothorax. HEART AND MEDIASTINUM: The cardiac silhouette is enlarged. The mediastinal contour is normal. PULMONARY VESSELS: Diffuse prominence of the central pulmonary vasculature. BONES: No acute osseous abnormality. RAD/Chest 1 View (Portable) IMPRESSION: 1. Cardiomegaly with vascular congestion. 2. Bilateral peribronchiolar thickening, can be seen with interstitial edema o r small airways disease, including asthma and bronchitis. Reading Location: [id number]
[2025-03-20 12:43] LABS: Mucous, Urine 0 SEEN /hpf (<or=2+)
[2025-03-20] MEDS: Magnesium Sulfate 4gm/100mL 4 GM/100 ML IV.SOLN. IV (12:50)
[2025-03-20 13:08] LABS: Color, Urine Yellow (Yellow); Glucose, Dipstick Normal (Normal); Ketone-Dipstick Negative (Negative); Leukocyte Esterase-Dipstick Negative /ul (Negative); Nitrite-Dipstick Negative (Negative); Occult Blood-Urine 250 /ul (Negative); Protein-Dipstick 15 mg/dl (Negative); Specific Gravity, Urine 1.005 (1.002-1.030); Urine Bilirubin Dipstick Negative (Negative)
[2025-03-20 13:17] LABS: Red Blood Cells-Urine 5-10 SEEN /hpf (0-5); Squamous Epithelial Cells - UA 0-5 SEEN /hpf (5-10)
[2025-03-20] MEDS: Magnesium Sulfate 4gm/100mL 2 GM/50 ML IV.SOLN. IV (13:19)
[2025-03-20 13:51] LABS: Troponin T High Sens 2 HR 11 ng/L (<=14)
--- NOTE | 2025-03-20 15:58 | ED.RN ---
1500: Attempted to call report to [facility] T2 floor. This nurse was on hold for 10 minutes. Rn Staff came back on the line and stated that the nurses were in the middle of a medication count. ER phone number given. Will await call back.
[2025-03-20 16:16] LABS: Troponin T High Sens 4 HR 9 ng/L (<=14)
== END 2025-03-20 16:56 | disposition short-term general hospital (02) ==
PROVIDERS: Emergency Provider Emergency Medicine; Visit Provider Emergency Medicine
DX: O14.95 Unspecified pre-eclampsia, complicating the puerperium (principal); R20.2 Paresthesia of skin; Z87.891 Personal history of nicotine dependence; Z79.899 Other long term (current) drug therapy; Z90.49 Acquired absence of other specified parts of digestive tract; R29.702 NIHSS score 2; O99.893 Other specified diseases and conditions complicating puerperium
CPT/HCPCS: 70450; 70496; 70498; 71045; 80048; 80076; 81001; 82962; 84484; 85025; 85610; 85730; 93005; 96365; 96366; 96375; 99285; Q9967; A4216

== ENCOUNTER → 2025-04-30 | Outpatient (CLI) | payer MEDICAID, SELFPAY ==
[2025-04-30 12:12] LABS: Hematocrit 31.5 % (37-47); Hemoglobin 9.6 g/dL (12.0-15.0); Immature Granulocytes Count 0.020 X10^3/uL (0.0-0.0); Mean Corp Hgb Conc 30.5 g/dL (32-36); Mean Corpuscular Volume 70.0 fL (81-99); Mean Platelet Vol. 9.4 fl (6.2-12.0); NRBC Flagged by Analyzer 0 % (0-5); Platelet Count 455 K/mm3 (150-450); RBC Distribution Width CV 18.3 % (11.6-14.6); RBC Distribution Width SD 45.6 fl (35.1-43.9); Red Blood Count 4.50 M/mm3 (4.2-5.4); White Blood Count 6.8 K/mm3 (4.4-11.0)
== END | disposition home or self-care (01) ==
PROVIDERS: Visit Provider Obstetrics & Gynecology
DX: Z86.2 Personal history of diseases of the blood and blood-forming organs and certain disorders involving the immune mechanism (principal)
CPT/HCPCS: 36415; 85025